=== PATIENT | female | born 1945 | race Caucasian/White ===

== ENCOUNTER 2024-10-13 12:19 | Emergency (ER) | payer MEDICARE, SELFPAY ==
[2024-10-13 12:54] VITALS: BP 101/60; PULSE 83; RESP 18; TEMP 36.5; O2SAT 96
--- NOTE | 2024-10-13 13:28 | ED.URI ---
HPI - URI/Sore Throat General Chief Complaint: Upper Respiratory Infection Stated Complaint: cough congestion headache Time Seen by Provider: 10/13/24 13:28 Source: patient, RN notes reviewed and old records reviewed Mode of arrival: ambulatory Limitations: no limitations History of Present Illness HPI Narrative: 79-year-old presents to the [facility] with complaints, headache cough, congestion. Has a history of COPD and cardiac stents. States that she forgot her albuterol inhaler at home in [place]. Patient reports that she has felt feverish, headache. Symptoms started this morning Related Data Allergies Allergy/AdvReac Type Severity Reaction Status Date / Time Sulfa (Sulfonamide Allergy rash Verified 10/09/12 11:07 Antibiotics) Review of Systems Review of Systems: All systems reviewed & are unremarkable except as noted in HPI and below Constitutional: Constitutional: Reports as per HPI, Reports fever(s) and Reports headache(s) ENT: Reports system reviewed and no additional complaints, except as documented Cardiovascular: Cardiovascular: Reports no additional cardiovascular complaints, Denies chest pain and Denies dyspnea Respiratory: Respiratory: Reports as per HPI, Denies chest congestion, Reports cough, Reports dyspnea and Reports wheezing Musculoskeletal: Musculoskeletal: Reports no additional musculoskeletal complaints Integumentary/Breasts: Skin/Breast: Reports system reviewed and no additional complaints, except as docu PMFSH Past Medical History Medical History (Updated 10/13/24 @ 19:57 by Katharina Shore APRN) History of thyroid disorder COPD (chronic obstructive pulmonary disease) Surgical History Surgical History (Updated 10/13/24 @ 19:57 by Katharina Shore APRN) H/O heart artery stent Comments At the time of my signature, I reviewed and agree with the nursing past medical, surgical, social, and family history. There is no relevant family history pertinent to the patient complaint. Exam Const: General: cooperative, healthy appearing, comfortable, no acute distress, well developed, alert and well nourished Nutritional Appearance: well nourished Orientation/consciousness: patient oriented x3 Limitations: no limitations HENMT: Head: normal to inspection Ears: hearing grossly normal bilaterally, external ears normal, TM's normal bilaterally, EAC's normal, mastoids normal and no periauricular adenopathy Face/Nose/Sinus: normal facial exam and face symmetric Face and sinus: normal facial exam and face symmetric Throat: uvula midline, postnasal drainage and no uvular edema Eyes: General: appearance normal, both eyes and all related structures Neck: Neck: normal visual inspection, full ROM, no lymphadenopathy and no meningeal signs Chest: Chest palpation & inspection: normal inspection of the chest Resp: Effort & Inspection: normal respiratory effort and able to speak in complete sentences Auscultation: no crackles, no rales, no rhonchi and wheezes throughout Cardio: Rate: regular rate Skin: General skin exam: normal color and no rashes or lesions noted Neuro: General: patient oriented x3, gait normal, moves all extremities and no meningeal signs Cognition (Neuro): normal cognition Speech: normal speech Gait exam (Neuro): Normal gait present Extrem: General: normal to inspection, full ROM, capillary refill normal and normal gait Psych: Appearance: grossly normal and well kempt Mental Status: mental status grossly normal Speech and movement: Normal speech and movement present and Clear speech present Affect: normal affect Attitude: cooperative Course Course Level of Care: Express Care Visit Vital Signs Vital signs: Vital Signs Temperature 97.7 F 10/13/24 12:54 Pulse Rate 83 10/13/24 12:54 Respiratory Rate 18 10/13/24 12:54 Blood Pressure 101/60 10/13/24 12:54 Pulse Oximetry 96 10/13/24 12:54 Oxygen Delivery Room Air 10/13/24 12:54 Temperature 97.7 F 10/13/24 12:54 Pulse Rate 83 10/13/24 12:54 Respiratory Rate 18 10/13/24 12:54 Blood Pressure 101/60 10/13/24 12:54 Pulse Oximetry 96 10/13/24 12:54 Oxygen Delivery Room Air 10/13/24 12:54 Reviewed MDM - URI/Sore Throat MDM Narrative Medical decision making narrative: Patient sitting comfortably exam vitals stable. Patient presents with several hours of cough, congestion. Has a history of COPD. Did not bring her medication from home. Patient is appropriate for outpatient treatment with close follow-up Discharge instructions reviewed with patient, as well as provided in writing per nursing staff. The instructions also include specific and strict return/GO TO THE ER as well as f/u information. All questions have been answered, and the patient deny any further questions with discharge and discharge plan. Some parts of this dictation were generated by voice recognition software and may contain typographical and/or grammatical inaccuracies. Differential Diagnosis Differential diagnosis: Likely upper respiratory infection, otitis media, sinusitis, viral infection and bronchitis Critical Care Time Critical Care Time Critical Care Time: No Discharge Plan Discharge Clinical Impression: COPD (chronic obstructive pulmonary disease) with acute bronchitis Patient Disposition: Home, Self-Care Condition: Stable Instructions: Antibiotic Form, COPD (Chronic Obstructive Pulmonary Disease) (DC), Chronic Bronchitis (ED) Additional Instructions: Use your inhaler every 4-5 hours while awake Take steroid as prescribed Follow-up with primary care provider as soon as possible For new or worsening symptoms go directly to the emergency room Patient Language: [place] Prescriptions: New albuterol sulfate 90 mcg/actuation HFA aerosol inhaler 2 puff inhalation QID PRN (Reason: shortness of breath or wheezing) Qty: 6.7 0RF (DME) Aerochamber MV Spacer See Rx Instructions .Route Qty: 1 0RF Rx Instructions: As directed prednisone 20 mg tablet See Rx Instructions .Route .COMPLEX Qty: 18 0RF Rx Instructions: Take 60 mg daily for 3 days, 40 mg daily for 3 days, 20 mg daily for 3 days Follow-up/Referrals: UNKNOWN,DOCTOR [Primary Care Provider] - Time of Disposition: 13:40
== END 2024-10-13 13:44 | disposition home or self-care (01) ==
PROVIDERS: Emergency Provider Nurse Practitioner
DX: J44.9 Chronic obstructive pulmonary disease, unspecified (principal); Z85.850 Personal history of malignant neoplasm of thyroid
CPT/HCPCS: 99203; G0463

== ENCOUNTER 2025-01-28 18:31 | Emergency (ER) | payer MEDICARE, SELFPAY ==
--- NOTE | ~2025-01-28 | XR_ITS ---
EXAMINATION: XR chest 2V Exam Date/Time: 01/28/2025 19:32 CDT HISTORY: CHEST PAIN . Comparison: None. RESULT: Lines, tubes, and devices: A stimulator pack or pump lies over the anterior abdomen. Bilateral shoul jonathan arthroplasties. Anterior and posterior cervical fusion hardware. Lungs and pleura: No focal consolidation or pneumothorax. Senescent/interstitial change. Mild left c ostophrenic angle blunting. Cardiomediastinal silhouette: Stable. Other: No acute upper abdominal finding. Scoliosis. Osteopenia. Moderate height loss of the lower th oracic vertebral body, probably T10. IMPRESSION: Small left pleural effusion versus chronic pleural blunting. Acute versus chronic moderate T10 compression fracture (no comparisons available). Reviewed, dictated and finalized at location K. IMPRESSION: Small left pleural effusion versus chronic pleural blunting. Acute versus chronic moderate T10 compression fracture (no comparisons availabl e).
--- OUTSIDE RECORDS SUMMARY | 2025-01-28 18:34 | XMS_ITS ---
Author Name Interface, [id number] lity Address [place] [address] Organization [facility] Address [place] [address] Care Team Providers Care Memory Care Program Resident Name Role Phone DorindaMichell pintoe Unavailable Unavailable Allergies and Adverse Reactions Medication/Group Name Reaction Severity Date Sulfa (Sulfonamide Antibiotics) 11/07/2024 Plan Date Type Value 05/16/2025 APPOINTMENT LAB OV 6M 05/16/2025 APPOINTMENT LAB OV 6M 11/07/2024 APPOINTMENT LAB OV 11/07/2024 APPOINTMENT LAB OV 10/27/2024 APPOINTMENT LAB OV 10/27/2024 APPOINTMENT LAB OV 04/26/2024 APPOINTMENT LAB OV 04/26/2024 APPOINTMENT LAB OV 10/27/2023 APPOINTMENT LAB OV-3M 10/27/2023 APPOINTMENT LAB OV-3M 10/06/2023 APPOINTMENT LAB OV-3M 10/06/2023 APPOINTMENT LAB OV 07/07/2023 APPOINTMENT LAB OV-6M 07/07/2023 APPOINTMENT LAB OV 04/08/2023 APPOINTMENT LAB OV 04/08/2023 APPOINTMENT LAB OV 02/22/2023 APPOINTMENT VENOFER #5 02/18/2023 APPOINTMENT VENOFER #4 02/16/2023 APPOINTMENT VENOFER #4 02/15/2023 APPOINTMENT VENOFER #4 02/04/2023 APPOINTMENT VENOFER #3 01/28/2023 APPOINTMENT VENOFER #2 01/21/2023 APPOINTMENT PBR VENOFER #1 01/21/2023 APPOINTMENT PBR VENOFER #1 12/30/2022 APPOINTMENT LABS, OV 12/30/2022 APPOINTMENT LABS, OV 06/24/2022 APPOINTMENT LAB OV 06/24/2022 APPOINTMENT LAB OV 12/24/2021 APPOINTMENT LAB OV 12/24/2021 APPOINTMENT LAB OV 06/24/2021 APPOINTMENT LAB OV 06/24/2021 APPOINTMENT LAB OV 06/24/2021 LABORDER Iron, TIBC, Ferr itin panel 06/24/2021 LABORDER [place]/lambda wit h K/L ratio, free, serum (mg/dL) 06/24/2021 LABORDER CBC 06/24/2021 LABORDER CMP 06/24/2021 LABORDER SPEP with immuno fixation 06/24/2021 LABORDER Vitamin B12 and Folate panel 12/24/2021 LABORDER SPEP with immuno fixation 12/24/2021 LABORDER Vitamin B12 and Folate panel 12/24/2021 LABORDER Iron, TIBC, Ferr itin panel 12/24/2021 LABORDER CMP 12/24/2021 LABORDER Iron, TIBC, Ferr itin panel 12/24/2021 LABORDER [place]/lambda wit h K/L ratio, free, serum (mg/dL) 12/24/2021 LABORDER CBC 06/24/2022 LABORDER CBC 06/24/2022 LABORDER SPEP with immuno fixation 06/24/2022 LABORDER Vitamin B12 and Folate panel 06/24/2022 LABORDER CMP 06/24/2022 LABORDER Iron, TIBC, Ferr itin panel 06/24/2022 LABORDER [place]/lambda wit h K/L ratio, free, serum (mg/dL) 12/30/2022 LABORDER Iron, TIBC, Ferr itin panel 12/30/2022 LABORDER Vitamin B12 and Folate panel 12/30/2022 LABORDER CMP 12/30/2022 LABORDER [place]/lambda wit h K/L ratio, free, serum (mg/dL) 12/30/2022 LABORDER CBC 12/30/2022 LABORDER SPEP with immuno fixation 04/08/2023 LABORDER Iron, TIBC, Ferr itin panel 04/08/2023 LABORDER CBC w/ auto diff 07/07/2023 LABORDER Iron, TIBC, Ferr itin panel 07/07/2023 LABORDER CMP 07/07/2023 LABORDER CBC w/ auto diff 07/07/2023 LABORDER [place]/lambda wit h K/L ratio, free, serum (mg/dL) 07/07/2023 LABORDER SPEP with immuno fixation 10/06/2023 LABORDER CBC w/auto diff with reflex 10/06/2023 LABORDER Iron, TIBC, Ferr itin panel 10/06/2023 LABORDER CMP 10/27/2023 LABORDER CBC w/auto diff with reflex 10/27/2023 LABORDER Iron, TIBC, Ferr itin panel 10/27/2023 LABORDER CMP 04/26/2024 LABORDER Iron, TIBC, Ferr itin panel 04/26/2024 LABORDER CMP 04/26/2024 LABORDER SPEP with immuno fixation 04/26/2024 LABORDER [place]/lambda wit h K/L ratio, free, serum (mg/dL) 04/26/2024 LABORDER CBC w/auto diff with reflex 11/07/2024 LABORDER SPEP with immuno fixation 11/07/2024 LABORDER CBC w/auto diff with reflex 11/07/2024 LABORDER [place]/lambda wit h K/L ratio, free, serum (mg/dL) 11/07/2024 LABORDER CMP 11/07/2024 LABORDER Iron, TIBC, Ferr itin panel 05/16/2025 LABORDER CBC w/auto diff with reflex 05/16/2025 LABORDER SPEP with immuno fixation 05/16/2025 LABORDER CMP 05/16/2025 LABORDER [place]/lambda wit h K/L ratio, free, serum (mg/dL) 05/16/2025 LABORDER Iron, TIBC, Ferr itin panel Reason for Visit LAB OV Encounters Date Name 06/24/2021 Anemia (disorder) 06/24/2021 Cannot tolerate oral iron 06/24/2021 Iron deficiency anem ia (disorder) 06/24/2021 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 . [address] [place] [address]. [id number]. [place] [address] CLIA#45D [id number] 06/24 TIBC and perce nt sat w/ iron panel Iron ug/dL 50.0 170.0 34.00 Low FINAL Mary Palanisa my Serum [facility] . [address] [place] [address]. [id number]. [place] [address] CLIA#45D [id number] 06/24 TIBC and perce nt sat w/ iron panel TIBC ug/dL 250.0 450.0 482.00 High FINAL Mary Palanisa my Serum [facility] . [address] [place] [address]. [id number]. [place] [address] CLIA#45D [id number] 06/24 TIBC and perce nt sat w/ iron panel Iron, % satur ation % 20.0 55.0 7.1 Low FINAL Mary Palanisa my Serum [facility] . [address] [place] [address]. [id number]. [place] [address] CLIA#45D [id number] 06/24 SPEP with immun ofixa tion Album in, SPE g/dL 3.1 5.5 3.7 FINAL Mary Palanisa my [facility] [place] [address] [facility] [address] [facility] SPEP with immun ofixa tion Alpha -1 globu ashley g/dL 0.2 0.5 0.3 FINAL Mary Palanisa my [facility] [place] [address] 12[place] [address] 06/24 SPEP with immun ofixa tion Alpha -2 globu ashley g/dL 0.4 1.0 0.7 FINAL Mary Palanisa my [facility] [place] [address] 12.[facility] [address] 06/24 SPEP with immun ofixa tion Beta globu ashley g/dL 0.5 1.1 0.9 FINAL Mary Palanisa my [facility] [place] [address] 12.[facility] [address] 06/24 SPEP with immun ofixa tion Gamma globu ashley g/dL 0.7 1.5 1.1 FINAL Mary Johnanisa my [facility] [address] [place] [address] [address] 12.[place] [address] 06/24 SPEP with immun ofixa tion Parap rotei n band, g/dL g/dL None FINAL Mary Johnanisa my [facility] [address] [place] [address] [place] 12[place] [address] 06/24 SPEP with immun ofixa tion Total prote in elect ropho resis g/dL 5.7 8.2 6.7 FINAL Mary Johnanisa my [facility] [address] [place] [address] [address] 12.[place] [address] 06/24 SPEP with immun ofixa tion SPE inter preta tion Results Below Normal serum total protein with normal electroph oretic pattern. FINAL Mary Johnanisa my [facility] [address] [place] [address] [address] 12.[place] [address] 06/24 SPEP with immun ofixa tion Immun ofixa tion, serum , inter preta tion Results Below No monoclona l peaks detected. FINAL Mary Chisa my [facility] [address] [place] [address] [address] 12.[place] [address] 06/24 Vitam in B12 panel Vitam in B12 pg/mL 211.0 911.0 571 FINAL Mary Johnanisa my [facility] [address] [place] [address] [place] 12[place] [address] 06/24 CMP Sodiu m mmol/L 136.0 145.0 143 FINAL Mary Johnanisa my Plasma [facility] . [address] [employer]. [id number]. [facility] [address] CLIA#45D [id number] 06/24 CMP Potas sium mmol/L 3.5 5.1 3.8 FINAL Mary Palanisa my Plasma [facility] . [address] [employer]. [id number]. [facility] [address] CLIA#45D [id number] 06/24 CMP Chlor loly mmol/L 97.0 107.0 106 FINAL Mary Palanisa my Plasma [facility] . [address] [place], [place] [address]. [id number]. [facility] [address] CLIA#45D [id number] 06/24 CMP CO2 mmol/L 21.0 32.0 27 FINAL Mary Palanisa my Plasma [facility] . [address] [place], [place] [address]. [id number]. [facility] [address] CLIA#45D [id number] 06/24 CMP Gluco se mg/dL 70.0 110.0 144 High FINAL Mary Palanisa my Plasma [facility] . [address] [place], [place] [address]. [id number]. [place] [address] CLIA#45D [id number] 06/24 CMP BUN mg/dL 7.0 18.0 18 FINAL Mary Palanisa my Plasma [facility] . [address] [place], [place] [address]. [id number]. [place] [address] CLIA#45D [id number] 06/24 CMP Creat inine , mg/dL mg/dL 0.55 1.3 1.41 High FINAL Mary Palanisa my Plasma [facility] . [address] [place], [place] [address] [facility]. [id number]. [place] [address] CLIA#45D [id number] 06/24 CMP GFR estim ate ml/min /1.73m 2 37 Low eFR based on CKD-EPI to estimate renal function. If multiply results by 1.159.60- 89 mL/min/1. 73m^2 without kidney damage may be normal.60 -89 mL/min/1. 73m^2 for 3 months or more, along with kidney damage, may indicate early kidney disease.I f , multiply result by 1.159. FINAL Mary Palanisa my Plasma [facility] . [address] [place], [place] [address]. [id number]. [place] [address]71 CLIA#45D [id number] 06/24 CMP BUN/C reati nine ratio Ratio 6.0 25.0 12.8 FINAL Mary Palanisa my Plasma [facility] . [address] [place], [place] [address]. [id number]. [place] [address] CLIA#45D [id number] 06/24 CMP Calci um mg/dL 8.5 10.1 8.7 FINAL Mary Palanisa my Plasma [facility] . [address] [place] [address]. [id number]. [place] [address] CLIA#45D [id number] 06/24 CMP Total prote in g/dL 6.4 8.2 6.8 FINAL Mary Palanisa my Plasma [facility] . [address] [place] [address]. [id number]. [place] [address] CLIA#45D [id number] 06/24 CMP Album in g/dL 3.4 5.0 3.2 Low FINAL Mary Palanisa my Plasma [facility] . [address] [place] [address]. [place] [address]. [place] [address] CLIA#45D [id number] 06/24 CMP A/G ratio Ratio 0.8 2.0 0.9 FINAL Mary Palanisa my Plasma [facility] . [address] [place] [address]. [id number]. [place] [address] CLIA#45D [id number] 06/24 CMP Bilir ubin, total mg/dL 0.1 1.0 0.5 FINAL Mary Palanisa my Plasma [facility] . [address] [place] [address]. [id number]. [place] [address] CLIA#45D [id number] 06/24 CMP Alkal ine phosp hatas e U/L 46.0 116.0 96 FINAL Mary Palanisa my Plasma [facility] . [address] [place] [address]. [id number]. [place] [address] CLIA#45D [id number] 06/24 CMP AST/S GOT U/L 15.0 37.0 16 FINAL Mary Palanisa my Plasma [facility] . [address] [place] [address]. [id number]. [place] [address] CLIA#45D [id number] 06/24 CMP ALT/S GPT U/L 14.0 59.0 18 FINAL Mary Palanisa my Plasma [facility] . [address] [place], [place] [address]y [facility]. [id number]. [place] [address] CLIA#45D [id number] 06/24 [place] /robbins da with K/L ratio , free, serum (mg/d L) [place] light chain , free, serum , mg/L mg/L 3.3 19.4 64.7 High FINAL Mary Palanisa my Serum [facility] [address] [place] [address] [address] 12[place] [address] 06/24 [place] /robbins da with K/L ratio , free, serum (mg/d L) [place] a light chain , free, serum , mg/L mg/L 5.7 26.3 29.2 High FINAL Mary Palanisa my [facility] [address] [place] [address] [address] 12[place] [address] 06/24 [place] /robbins da with K/L ratio , free, serum (mg/d L) [place] /Robbins da light chain s, free w/ ratio , serum Ratio 0.26 1.65 2.22 High (Note)Harjinder e kappa/tracy bda ratio in serum of normal individua ls is 0.26-1.65 .Excess productio n of free kappa or lambda chains can alter thisratio . Monoclona l free light chains are found in serum of patientsw ith multiple myeloma, Waldenstr om's macroglob ulinemia, mu-heavyc lon disease, primary amyloidos is, light chain depositio n disease,m onoclonal gammopath y of undetermi christina significa nce, andlympho prolifera tive disorders . Measureme nt of free light chainconc entration in serum is useful for diagnosis , prognosis , monitorin gdisease activity and following response to therapy of these disorders . FINAL Mary Palanisa my [facility] [address] [place] [address] [place] 12[place] [address] 06/24 CBC WBC 10^3/u l 4.8 10.8 4.4 Low FINAL Mary Palanisa my Whole Blood [facility] [place] . [facility] [facility] [employer] [facility]. [id number]. [facility] [address] CLIA#45D [id number] 06/24 CBC RBC 10^6/u l 4.2 5.4 3.85 Low FINAL Mary Palanisa my Whole Blood [facility] . [address] [place] [address] [employer] [facility]. [id number]. [place] [address] CLIA#45D [id number] 06/24 CBC HGB g/dl 12.0 16.0 9.8 Low FINAL Mary Palanisa my Whole Blood [facility] . [address] [place] [address] [employer] [facility]. [id number]. [place] [address] CLIA#45D [id number] 06/24 CBC HCT % 37.0 47.0 32.6 Low FINAL Mary Palanisa my Whole Blood [facility] . [address] [place], [place] [address]Vimty [facility]. [id number]. [place] [address] CLIA#45D [id number] 06/24 CBC MCV fl 81.0 99.0 84.7 FINAL Mary Palanisa my Whole Blood [facility] . [address] [place], [place] [address]Vimty [facility]. [id number]. [place] [address] CLIA#45D [id number] 06/24 CBC MCH pg 27.0 31.0 25.5 Low FINAL Mary Palanisa my Whole Blood [facility] . [address] [place], [place] [address]Vimty [facility]. [id number]. [place] [address] CLIA#45D [id number] 06/24 CBC MCHC g/dl 33.0 37.0 30.1 Low FINAL Mary Palanisa my Whole Blood [facility] . [address] [place] [address]. [id number]. [place] [address] CLIA#45D [id number] 06/24 CBC RDW % 10.5 14.5 14.6 High FINAL Mary Palanisa my Whole Blood [facility] . [address] [place] [address] [employer] [facility]. [id number]. [place] [address] CLIA#45D [id number] 06/24 CBC PLT 10^3/u l 130.0 400.0 299 FINAL Mary Palanisa my Whole Blood [facility] . [address] [place] [address] [employer] [facility]. [id number]. [place] [address] CLIA#45D [id number] 06/24 CBC MPV fl 9.4 12.3 11.1 FINAL Mary Palanisa my Whole Blood [facility] . [address] [place] [address]. [place] [address]. [place] [address] CLIA#45D [id number] 06/24 CBC Auto CBC comme nts See Manual Diff FINAL Mary Palanisa my Whole Blood [facility] . [address] [place] [address]. [id number]. [place] [address] CLIA#45D [id number] 06/24 Manua l diffe renti al Seg % % 40.0 77.0 41 FINAL Mary Palanisa my Whole Blood [facility] . [address] [place] [address]. [place] [address]. [place] [address] CLIA#45D [id number] 06/24 Manua l diffe renti al Lymph ocyte % % 15.0 41.0 33 FINAL Mary Palanisa my Whole Blood [facility] . [address] [place] [address]. [id number]. [place] [address] CLIA#45D [id number] 06/24 Manua l diffe renti al Monoc yte % % 3.0 11.0 8 FINAL Mary Palanisa my Whole Blood [facility] . [address] [place] [address]. [place] [address]. [place] [address] CLIA#45D [id number] 06/24 Manua l diffe renti al Eosin ophil % % 0.0 3.0 15 High FINAL Mary Palanisa my Whole Blood [facility] . [address] [place] [address]. [place] [address]. [place] [address] CLIA#45D [id number] 06/24 Manua l diffe renti al Basop hil % % 0.0 1.0 3 High FINAL Mary Palanisa my Whole Blood [facility] . [address] [place] [address]. [place] [address]. [place] [address] CLIA#45D [id number] 06/24 Manua l diffe renti al ANC (M) 10^3/U L 1.5 6.5 1.81 FINAL Mary Palanisa my Whole Blood [facility] . [address] [place] [address]. [id number]. [place] [address] CLIA#45D [id number] 06/24 Manua l diffe renti al LY# (M) 10^3/u L 1.2 3.4 1.46 FINAL Mary Palanisa my Whole Blood [facility] . [address] [place] [address]. [id number]. [place] [address] CLIA#45D [id number] 06/24 Manua l diffe renti al MO# (M) 10^3/U L 0.0 1.0 0.35 FINAL Mary Palanisa my Whole Blood [facility] . [address] [place] [address]. [id number]. [place] [address] CLIA#45D [id number] 06/24 Manua l diffe renti al EO# (M) 10^3/U L 0.0 0.3 0.66 High FINAL Mary Palanisa my Whole Blood [facility] . [address] [place] [address]. [id number]. [place] [address] CLIA#45D [id number] 06/24 Manua l diffe renti al Basop hil count (M) 10^3/U L 0.0 0.2 0.13 FINAL Mary Palanisa my Whole Blood [facility] . [address] [place] [address]. [id number]. [place] [address] CLIA#45D [id number] 06/24 Manua l diffe renti al Plate let estim ate 10^3 130.0 400.0 Agrees with Analyze r FINAL Mary Palanisa my Whole Blood [facility] . [address] [place] [address]. [id number]. [place] [address] CLIA#45D [id number] 06/24 Manua l diffe renti al RBC morph Normal FINAL Mary Palanisa my Whole Blood [facility] . [address] [place] [address]. [id number]. [place] [address] CLIA#45D [id number] 06/24 Folat e panel Folat e, serum ng/mL 7.6 FINAL Mary Palanisa Serum [facility]2 [address] [facility] [address] 12[place] [address] 12/24 TIBC and perce nt sat w/ iron panel Iron ug/dL 50.0 170.0 79.00 FINAL [facility] . [address] [place] [address]. [id number]. [place] [address] CLIA#45D [id number] 12/24 TIBC and perce nt sat w/ iron panel TIBC ug/dL 250.0 450.0 438.00 FINAL [facility] . [address] [place] [address]. [id number]. [place] [address] CLIA#45D [id number] 12/24 TIBC and perce nt sat w/ iron panel Iron, % satur ation % 20.0 55.0 18.0 Low FINAL [facility] . [address] [place] [address]. [id number]. [place] [address] CLIA#45D [id number] 12/24 Juliet tin panel Juliet tin ng/mL 8.0 252.0 29 FINAL [facility] Serum [facility] . [address] [place] [address]. [id number]. [place] [address] CLIA#45D [id number] 12/24 CBC WBC 10^3/u l 4.8 10.8 4.6 Low FINAL [facility] Whole Blood [facility] . [address] [place] [address]. [id number]. [place] [address] CLIA#45D [id number] 12/24 CBC RBC 10^6/u l 4.2 5.4 3.83 Low FINAL [facility] Whole Blood [facility] . [address] [place] [address]. [id number]. [place] [address] CLIA#45D [id number] 12/24 CBC HGB g/dl 12.0 16.0 11.3 Low FINAL [facility] Whole Blood [facility] . [address] [place] [address]. [id number]. [place] [address] CLIA#45D [id number] 12/24 CBC HCT % 37.0 47.0 35.3 Low FINAL Roxi Kelleywith Whole Blood [facility] . [address] [place], [place] [address]Vimty [facility]. [id number]. [facility] [address] CLIA#45D [id number] 12/24 CBC MCV fl 81.0 99.0 92.2 FINAL Roxi Kelleywith Whole Blood [facility] . [address] [place] [address]. [id number]. [place] [address]71 CLIA#45D [id number] 12/24 CBC MCH pg 27.0 31.0 29.5 FINAL Roxi Kelleywith Whole Blood [facility] . [address] [place] [address]. [id number]. [place] [address] CLIA#45D [id number] 12/24 CBC MCHC g/dl 33.0 37.0 32.0 Low FINAL Roxi Kelleywith Whole Blood [facility] . [address] [place] [address]. [place] [address]. [place] [address] CLIA#45D [id number] 12/24 CBC RDW % 10.5 14.5 15.3 High FINAL Roxi Kelleywith Whole Blood [facility] . [address] [place] [address]. [place] [address]. [facility] [address] CLIA#45D [id number] 12/24 CBC PLT 10^3/u l 130.0 400.0 219 FINAL Roxi Kelleywith Whole Blood [facility] . [address] [place] [address]. [place] [address]. [facility] [address] CLIA#45D [id number] 12/24 CBC MPV fl 9.4 12.3 10.5 FINAL Roxi Kelleywith Whole Blood [facility] . [address] [place] [address]. [id number]. [place] [address]71 CLIA#45D [id number] 12/24 CBC Jordy % % 40.0 77.0 45.7 FINAL Roxi Dorinda Whole Blood [facility] . [address] [place] [address]. [place] [address]. [place] [address] CLIA#45D [id number] 12/24 CBC Jordy # (ANC) 10^3/u l 1.5 6.5 2.1 FINAL Roxi Dorinda Whole Blood [facility] . [address] [place] [address]. [id number]. [place] [address] CLIA#45D [id number] 12/24 CBC LY % % 15.0 41.0 34.5 FINAL Roxi Dorinda Whole Blood [facility] . [address] [place] [address]. [id number]. [place] [address] CLIA#45D [id number] 12/24 CBC LY # 10^3/u l 1.2 3.4 1.6 FINAL Roxi Dorinda Whole Blood [facility] . [address] [place] [address]. [place] [address]. [place] [address] CLIA#45D [id number] 12/24 CBC MO % % 3.0 11.0 12.0 High FINAL Roxi Dorinda Whole Blood [facility] . [address] [place] [address]. [place] [address]. [place] [address] CLIA#45D [id number] 12/24 CBC MO # 10^3/u l 0.0 1.0 0.6 FINAL Roxi Dorinda Whole Blood [facility] . [address] [place] [address]. [place] [address]. [place] [address] CLIA#45D [id number] 12/24 CBC EO % % 0.0 3.0 6.3 High FINAL Roxi Dorinda Whole Blood [facility] . [address] [place] [address]. [place] [address]. [place] [address] CLIA#45D [id number] 12/24 CBC EO # 10^3/u L 0.0 0.3 0.3 FINAL Roxi Dorinda Whole Blood [facility] . [address] [place] [address]. [place] [address]. [place] [address] CLIA#45D [id number] 12/24 CBC BA % % 0.0 1.0 1.3 High FINAL Roxi Dorinda Whole Blood [facility] . [address] [place] [address]. [place] [address]. [place] [address] CLIA#45D [id number] 12/24 CBC BA # 10^3/u L 0.0 0.2 0.1 FINAL Roxi Dorinda Whole Blood [facility] . [address] [place] [address]. [id number]. [facility] [address] CLIA#45D [id number] 12/24 CBC IG % % 0.0 0.5 0.20 FINAL Roxi Dorinda Whole Blood [facility] . [address] [place] [address]. [id number]. [facility] [address] CLIA#45D [id number] 12/24 CBC IG # 10^3/u L 0.0 0.03 0.01 FINAL Roxi Dorinda Whole Blood [facility] . [address] [place] [address]. [id number]. [facility] [address] CLIA#45D [id number] 12/24 CBC NRBC, % % 0.00 FINAL Roxi Dorinda Whole Blood [facility] . [address] [place] [address]. [id number]. [facility] [address] CLIA#45D [id number] 12/24 CBC NRBC, absol circle, x 10^3/ uL 10^3/u L 0.000 FINAL Roxi Dorinda Whole Blood [facility] . [address] [place] [address]. [place] [address]. [facility] [address] CLIA#45D [id number] 12/24 Vitam in B12 panel Vitam in B12 pg/mL 200.0 1100.0 366 Please note: Although the reference range for Vitamin B12 is 200-1100 pg/mL,it has been reported that between 5-10% of patients with the values [id number] 0-400 pg/mL may experienc e neuropsyc hiatric and hematolog ic abnormali ties dueto occult B12 deficienc y, less than 1% of patients with values above 400 pg/mLwill have symptoms. FINAL Roxi Dorinda Serum [facility].2 [address] [facility] [address] 12[place] [address] 12/24 CMP Sodiu m mmol/L 136.0 145.0 141 FINAL Roxi Dorinda Plasma [facility] . [address] [place] [address]. [id number]. [facility] [address] CLIA#45D [id number] 12/24 CMP Potas sium mmol/L 3.5 5.1 3.7 FINAL Roxi Dorinda [facility] . [address] [place] [address]. [id number]. [facility] [address] CLIA#45D [id number] 12/24 CMP Chlor loly mmol/L 97.0 107.0 103 FINAL Roxi [facility] . [address] [place] [address]. [id number]. [facility] [address] CLIA#45D [id number] 12/24 CMP CO2 mmol/L 21.0 32.0 30 FINAL [facility] . [address] [place] [address]. [id number]. [place] [address] CLIA#45D [id number] 12/24 CMP Gluco se mg/dL 70.0 110.0 99 FINAL [facility] . [address] [place] [address]. [id number]. [place] [address] CLIA#45D [id number] 12/24 CMP BUN mg/dL 7.0 18.0 25 High FINAL [facility] . [address] [place] [address]. [id number]. [place] [address] CLIA#45D [id number] 12/24 CMP Creat inine , mg/dL mg/dL 0.55 1.3 1.53 High FINAL [facility] . [address] [place] [address]. [id number]. [place] [id number] CLIA#45D [id number] 12/24 CMP GFR estim ate ml/min /1.73m 2 33 Low eFR based on CKD-EPI to estimate renal function. If multiply results by 1.159.60- 89 mL/min/1. 73m^2 without kidney damage may be normal.60 -89 mL/min/1. 73m^2 for 3 months or more, along with kidney damage, may indicate early kidney disease.I f , multiply result by 1.159. FINAL [facility] . [address] [place] [address]. [id number]. [place] [address] CLIA#45D [id number] 12/24 CMP BUN/C reati nine ratio Ratio 6.0 25.0 16.3 FINAL [facility] . [address] [place] [address]. [id number]. [place] [address] CLIA#45D [id number] 12/24 CMP Calci um mg/dL 8.5 10.1 9.0 FINAL [facility] . [address] [place] [address]. [id number]. [place] [address] CLIA#45D [id number] 12/24 CMP Total prote in g/dL 6.4 8.2 7.2 FINAL [facility] . [address] [place] [address]. [place] [address]. [place] [address] CLIA#45D [id number] 12/24 CMP Album in g/dL 3.4 5.0 3.4 FINAL [facility] . [address] [place] [address]. [place] [address]. [place] [address] CLIA#45D [id number] 12/24 CMP A/G ratio Ratio 0.8 2.0 0.9 FINAL [facility] . [address] [place] [address]. [place] [address]. [place] [address] CLIA#45D [id number] 12/24 CMP Bilir ubin, total mg/dL 0.1 1.0 0.7 FINAL [facility] . [address] [place] [address]. [place] [address]. [place] [address] CLIA#45D [id number] 12/24 CMP Alkal ine phosp hatas e U/L 46.0 116.0 92 FINAL [facility] . [address] [place] [address]. [id number]. [place] [address] CLIA#45D [id number] 12/24 CMP AST/S GOT U/L 15.0 37.0 20 FINAL [facility] . [address] [place] [address]. [place] [address] CLIA#45D [id number] 12/24 CMP ALT/S GPT U/L 14.0 59.0 20 FINAL [facility] . [address] [facility]. [id number]. [facility] [address] CLIA#45D [id number] 12/24 Folat e panel Folat e, serum ng/mL 7.2 (Note)Ref erence ranges for adults: Low <3.4 ng/mL Borderlin e 3.4 - 5.4 ng/mL Normal >5.4 ng/mL FINAL [facility] [place] [address] [place] 12[place] [address] 12/24 SPEP with immun ofixa tion Album in, SPE g/dL 3.1 5.5 3.7 FINAL [facility] [place] [address] [place] 12[place] [address] 12/24 SPEP with immun ofixa tion Alpha -1 globu ashley g/dL 0.2 0.5 0.3 FINAL [facility] [place] [address] [place] 12[place] [address] 12/24 SPEP with immun ofixa tion Alpha -2 globu ashley g/dL 0.4 1.0 0.7 FINAL [facility] [place] [address] [place] 12[place] [address] 12/24 SPEP with immun ofixa tion Beta globu ashley g/dL 0.5 1.1 0.9 FINAL [facility] [place] [address] [place] 12[place] [address] 12/24 SPEP with immun ofixa tion Gamma globu ashley g/dL 0.7 1.5 1.0 FINAL [facility] [place] [address] [place] 12[place] [address] 12/24 SPEP with immun ofixa tion Parap rotei n band, g/dL g/dL None FINAL [facility] [place] [address] [place] 12[place] [address] 12/24 SPEP with immun ofixa tion Total prote in elect ropho resis g/dL 5.7 8.2 6.5 FINAL [facility] [place] [address] [place] 12[place] [address] 12/24 SPEP with immun ofixa tion SPE inter preta tion Results Below Normal serum total protein with normal electroph oretic pattern. FINAL [facility] [address] [place] [address] [place] 12[place] [address] 12/24 SPEP with immun ofixa tion Immun ofixa tion, serum , inter preta tion Results Below No monoclona l peaks detected. FINAL [facility] [address] [place] [address] [place] 12[place] [address] 12/24 [place] /robbins da with K/L ratio , free, serum (mg/d L) [place] light chain , free mg/L 3.3 19.4 52.7 High FINAL [facility] [address] [place] [address] [place] 12[place] [address] 12/24 [place] /robbins da with K/L ratio , free, serum (mg/d L) Lamb[place] a light chain , free mg/L 5.7 26.3 29.0 High FINAL [facility] [address] [place] [address] [place] 12[place] [address] 12/24 [place] /robbins da with K/L ratio , free, serum (mg/d L) Free K/L ratio Ratio 0.26 1.65 1.82 High (Note)Harjinder e kappa/tracy bda ratio in serum of normal individua ls is 0.26-1.65 .Excess productio n of free kappa or lambda chains can alter thisratio . Monoclona l free light chains are found in serum of patientsw ith multiple myeloma, Waldenstr om's macroglob ulinemia, mu-heavyc lon disease, primary amyloidos is, light chain depositio n disease,m onoclonal gammopath y of undetermi christina significa nce, andlympho prolifera tive disorders . Measureme nt of free light chainconc entration in serum is useful for diagnosis , prognosis , monitorin gdisease activity and following response to therapy of these disorders . FINAL [facility] [address] [place] [address] [place] 12[place] [address] 12/30 Echoc ardio gram See patient services coordinator d 02/17 Mammo graph y See patient services coordinator d 02/17 X-ray See patient services coordinator d 06/24 TIBC and perce nt sat w/ iron panel Iron mcg/dL 45.0 160.0 55 FINAL Mary [facility] [address] [place] [address] [place] 12[place] [address] 06/24 TIBC and perce nt sat w/ iron panel TIBC mcg/dL 250.0 450.0 373 FINAL [facility] [address] [place] [address] [place] 12[place] [address] 06/24 TIBC and perce nt sat w/ iron panel Iron, % satur ation % 16.0 45.0 15 Low FINAL [facility] [address] [place] [address] [place] 12[place] [address] 06/24 CBC w/ auto diff WBC 10^3/u l 4.8 10.8 4.2 Low FINAL Mary Palanisa [facility] . [address] [place] [address] [facility] [facility]. [place] [address]. [place] [address] CLIA#45D [id number] 06/24 CBC w/ auto diff RBC 10^6/u l 4.2 5.4 3.76 Low FINAL Mary Palanisa my Whole [facility] . [address] [place] [address] [facility] [facility]. [place] [address]. [facility] [address] CLIA#45D [id number] 06/24 CBC w/ auto diff HGB g/dl 12.0 16.0 11.0 Low FINAL Mary Palanisa my Whole [facility] . [address] [place] [address] [facility] [facility]. [id number]. [facility] [address] CLIA#45D [id number] 06/24 CBC w/ auto diff HCT % 37.0 47.0 34.9 Low FINAL Mary Palanisa my Whole [facility] . [address] [place] [address] [facility] [facility]. [id number]. [place] [address] CLIA#45D [id number] 06/24 CBC w/ auto diff MCV fl 81.0 99.0 92.8 FINAL Mary Palanisa my Whole [facility] . [address] [place] [address] [facility] [facility]. [id number]. [place] [address] CLIA#45D [id number] 06/24 CBC w/ auto diff MCH pg 27.0 31.0 29.3 FINAL Mary Palanisa my Whole [facility] . [address] [place] [address] [facility] [facility]. [id number]. [place] [address] CLIA#45D [id number] 06/24 CBC w/ auto diff MCHC g/dl 33.0 37.0 31.5 Low FINAL Mary Palanisa my Whole [facility] . [address] [place] [address] [facility] [facility]. [id number]. [place] [address] CLIA#45D [id number] 06/24 CBC w/ auto diff RDW % 10.5 14.5 13.7 FINAL Mary Palanisa my Whole [facility] . [address] [place], [place] [address]. [id number]. [place] [address] CLIA#45D [id number] 06/24 CBC w/ auto diff PLT 10^3/u l 130.0 400.0 224 FINAL Mary Palanisa my Whole [facility] . [address] [place], [place] [address]. [id number]. [place] [address] CLIA#45D [id number] 06/24 CBC w/ auto diff MPV fl 9.4 12.3 10.7 FINAL Mary Palanisa my [facility] . [address] [place] [address] [facility] [facility]. [id number]. [place] [address] CLIA#45D [id number] 06/24 CBC w/ auto diff NRBC, % % 0.00 FINAL Mary Palanisa my [facility] . [address] [place], [place] [address] [facility]. [id number]. [place] [address] CLIA#45D [id number] 06/24 CBC w/ auto diff NRBC, absol circle, x 10^3/ uL 10^3/u L 0.000 FINAL Mary Palanisa my [facility] . [address] [place], [place] [address]. [id number]. [facility] [address] CLIA#45D [id number] 06/24 CBC w/ auto diff Auto CBC comme nts See Manual Diff FINAL Mary rodrigues [facility] . [address]. [id number]. [facility] [address] CLIA#45D [id number] 06/24 [place] /robbins da with K/L ratio , free, serum (mg/d L) [place] light chain , free mg/L 3.3 19.4 67.4 High FINAL Mary [facility]isa [facility] [place] [address] [place] 12[place] [address] 06/24 [place] /robbins da with K/L ratio , free, serum (mg/d L) [place] a light chain , free mg/L 5.7 26.3 33.3 High FINAL Mary Johnanisa l[facility] [place] [address] [place] 12[place] [address] 06/24 [place] /robbins da with K/L ratio , free, serum (mg/d L) Free K/L ratio Ratio 0.26 1.65 2.02 High (Note)Harjinder e kappa/tracy bda ratio in serum of normal individua ls is 0.26-1.65 .Excess productio n of free kappa or lambda chains can alter thisratio . Monoclona l free light chains are found in serum of patientsw ith multiple myeloma, [place]str om's macroglob ulinemia, mu-heavyc lon disease, primary amyloidos is, light chain depositio n disease,m onoclonal gammopath y of undetermi christina significa nce, andlympho prolifera tive disorders . Measureme nt of free light chainconc entration in serum is useful for diagnosis , prognosis , monitorin gdisease activity and following response to therapy of these disorders . FINAL Mary John[facility]isa [facility] [place] [address] [place] 12[place] [address] 06/24 CMP Gluco se mg/dL 65.0 139.0 102 FINAL Mary [facility] [place] [address] 12[place] [address] 06/24 CMP BUN mg/dL 7.0 25.0 24 FINAL [facility] [place] [address] [place] 12[place] [address] 06/24 CMP Creat inine mg/dL 0.6 1.0 1.44 High FINAL [facility] [place] [address] [place] 12[place] [address] 06/24 CMP GFR estim ate mL/min /1.73m 2 38 Low FINAL [facility] [place] [address] [place] 12[place] [address] 06/24 CMP BUN/C reati nine ratio 6.0 22.0 17 FINAL [facility] [place] [address] [place] 12[place] [address] 06/24 CMP Sodiu m mmol/L 135.0 146.0 143 FINAL [facility] [place] [address] [place] 12[place] [address] 06/24 CMP Potas sium mmol/L 3.5 5.3 5.1 FINAL [facility] [place] [address] [place] 12[place] [address] 06/24 CMP Chlor loly mmol/L 98.0 110.0 105 FINAL [facility] [place] [address] [place] 12[place] [address] 06/24 CMP CO2 mmol/L 20.0 32.0 29 FINAL [facility] [place] [address] [place] 12[place] [address] 06/24 CMP Anion gap, mmol/ L mmol/L 7.0 17.0 14 FINAL [facility] [place] [address] [place] 12[place] [address] 06/24 CMP Calci um mg/dL 8.6 10.4 9.4 FINAL [facility] [place] [address] [place] 12[place] [address] 06/24 CMP Total prote in g/dL 6.1 8.1 6.4 FINAL [facility] [address] [place] [address] [address] 12[place] [address] 06/24 CMP Album in g/dL 3.6 5.1 3.7 FINAL [facility] [address] [place] [address] [address] 12[place] [address] 06/24 CMP Globu ashley g/dL 1.9 3.7 2.7 FINAL [facility] [place] [address] [place] 12[place] [address] 06/24 CMP A/G ratio 1.0 2.5 1.4 FINAL [facility] [place] [address] [place] 12[place] [address] 06/24 CMP Bilir ubin, total mg/dL 0.2 1.2 0.5 FINAL [facility] [place] [address] [place] 12[place] [address] 06/24 CMP Alkal ine phosp hatas e U/L 37.0 153.0 92 FINAL [facility] [place] [address] [place] 12[place] [address] 06/24 CMP AST/S GOT U/L 10.0 35.0 14 FINAL [facility] [place] [address] [place] 12[place] [address] 06/24 CMP ALT/S GPT U/L 6.0 29.0 8 FINAL [facility] [place] [address] [place] 12[place] [address] 06/24 Félix aragon al Seg % % 40.0 77.0 42 FINAL Mary Palanisa my Whole [facility] . [address] [place] [address] Drive. [id number]. [place] [id number] CLIA#45D [id number] 06/24 Félix aragon al Lymph ocyte % % 15.0 41.0 38 FINAL Mary Palanisa my [facility] . [address] [place] [address]. [id number]. [place] [address] CLIA#45D [id number] 06/24 Manua l diffe renti al Monoc yte % % 3.0 11.0 11 FINAL Mary Palanisa my [facility] . [address] [place] [address]. [id number]. [place] [address] CLIA#45D [id number] 06/24 Manua l diffe renti al Eosin ophil % % 0.0 3.0 6 High FINAL Mary Palanisa my [facility] . [address] [place] [address]. [id number]. [place] [address] CLIA#45D [id number] 06/24 Manua l diffe renti al Basop hil % % 0.0 1.0 3 High FINAL Mary Palanisa my Whole [facility] . [address] [place] [address]. [id number]. [place] [address] CLIA#45D [id number] 06/24 Manua l diffe renti al ANC (M) 10^3/U L 1.5 6.5 1.74 FINAL Mary Palanisa my Whole [facility] . [address] [place] [address]. [id number]. [place] [address] CLIA#45D [id number] 06/24 Manua l diffe renti al LY# (M) 10^3/u L 1.2 3.4 1.58 FINAL Mary Palanisa my Whole [facility] . [address] [place] [address]. [id number]. [place] [address] CLIA#45D [id number] 06/24 Manua l diffe renti al MO# (M) 10^3/U L 0.0 1.0 0.46 FINAL Mary Palanisa my Whole [facility] . [address] [place] [address]. [id number]. [place] [address] CLIA#45D [id number] 06/24 Manua l diffe renti al EO# (M) 10^3/U L 0.0 0.3 0.25 FINAL Mary Palanisa my Whole [facility] . [address] [place] [address]. [id number]. [place] [address] CLIA#45D [id number] 06/24 Manua jen diffe renti al Basop hil count (M) 10^3/U L 0.0 0.2 0.12 FINAL Mary Palanisa my Whole [facility] . [address] [place] [address]. [id number]. [place] [address] CLIA#45D [id number] 06/24 Manua l diffe renti al Plate let estim ate 10^3 130.0 400.0 Agrees with Analyze r FINAL Mary Palanisa my [facility] . [address] [place] [address]. [id number]. [place] [address] CLIA#45D [id number] 06/24 Eliana jen castilloe renti al RBC morph Normal FINAL Mary [facility]anisa [facility] . [address] [place] [address]. [id number]. [place] [address] CLIA#45D [id number] 06/24 Vitam in B12 panel Vitam in B12 pg/mL 200.0 1100.0 446 FINAL [facility] [place] [address] 12.[facility] [address] [facility]24 Folat e panel Folat e, serum ng/mL 4.7 (Note)Ref erence ranges for adults: Low <3.4 ng/mL Borderlin e 3.4 - 5.4 ng/mL Normal >5.4 ng/mL FINAL [facility] [place] [address] Building 12.Jonathan [facility] [address] 06/24 Juliet tin panel Juliet tin ng/mL 16.0 288.0 39 FINAL Mary [facility] [place] [address] Building 12.Jonathan [facility] [address] 06/24 SPEP with immun ofixa tion Album in, SPE g/dL 3.1 5.5 3.6 FINAL Mary [facility] [place] [address] [place] 12[place] [address] 06/24 SPEP with immun ofixa tion Alpha -1 globu ashley g/dL 0.2 0.5 0.3 FINAL [facility] [place] [address] [place] 12[place] [address] 06/24 SPEP with immun ofixa tion Alpha -2 globu ashley g/dL 0.4 1.0 0.7 FINAL [facility] [place] [address] [place] 12[place] [address] 06/24 SPEP with immun ofixa tion Beta globu ashley g/dL 0.5 1.1 0.8 FINAL [facility] [place] [address] [place] 12[place] [address] 06/24 SPEP with immun ofixa tion Gamma globu ashley g/dL 0.7 1.5 1.0 FINAL [facility] [place] [address] [place] 12[place] [address] 06/24 SPEP with immun ofixa tion Parap rotei n band, g/dL g/dL None FINAL [facility] [place] [address] [place] 12[place] [address] 06/24 SPEP with immun ofixa tion Total prote in elect ropho resis g/dL 5.7 8.2 6.5 FINAL Mary [facility] [place] [address] [place] 12[place] [address] 06/24 SPEP with immun ofixa tion SPE inter preta tion Results Below Abnormal appearing globulin peak, possibly monoclona l. If indicated , recommend immunotyp ing (Test Code: IES) for further evaluatio n. If the SPEP was orderedwi reflex, immunotyp ing will be resulted upon completio n. FINAL [facility] [place] [address] [place] 12[place] [address] 06/24 SPEP with immun ofixa tion Immun ofixa tion, serum , inter preta tion Results Below No monoclona l peaks detected. FINAL [facility] [address] [address] [place] 12[place] [address] 12/30 CBC w/ auto diff WBC 10^3/u l 4.8 10.8 4.9 FINAL Mary Palanisa my Whole [facility] . [address] [place], [place] [address]. [id number]. [place] [address] CLIA#45D [id number] 12/30 CBC w/ auto diff RBC 10^6/u l 4.2 5.4 3.66 Low FINAL Mary Palanisa my Whole [facility] . [address] [place], [place] [address] [facility]. [id number]. [place] [address] CLIA#45D [id number] 12/30 CBC w/ auto diff HGB g/dl 12.0 16.0 10.6 Low FINAL Mary Palanisa my Whole [facility] . [address] [place], [place] [address] [facility]. [id number]. [place] [address] CLIA#45D [id number] 12/30 CBC w/ auto diff HCT % 37.0 47.0 33.8 Low FINAL Mary Palanisa my Whole [facility] . [address] [place], [place] [address] [facility]. [id number]. [place] [address] CLIA#45D [id number] 12/30 CBC w/ auto diff MCV fl 81.0 99.0 92.3 FINAL Mary Palanisa my Whole [facility] . [address] [place], [place] [address] [facility]. [id number]. [place] [address] CLIA#45D [id number] 12/30 CBC w/ auto diff MCH pg 27.0 31.0 29.0 FINAL Mary Palanisa my Whole [facility] . [address] [place], [place] [address]. [id number]. [place] [address] CLIA#45D [id number] 12/30 CBC w/ auto diff MCHC g/dl 33.0 37.0 31.4 Low FINAL Mary Palanisa my Whole [facility] . [address] [place], [place] [address]. [id number]. [place] [address] CLIA#45D [id number] 12/30 CBC w/ auto diff RDW % 10.5 14.5 14.3 FINAL Mary Palanisa my Whole [facility] . [address] [place], [place] [address]. [id number]. [place] [address] CLIA#45D [id number] 12/30 CBC w/ auto diff PLT 10^3/u l 130.0 400.0 294 FINAL Mary Palanisa my Whole [facility] . [address] [place], [place] [address]. [id number]. [place] [address] CLIA#45D [id number] 12/30 CBC w/ auto diff MPV fl 9.4 12.3 10.1 FINAL Mary Palanisa my Whole [facility] . [address] [place], [place] [address]. [id number]. [place] [address] CLIA#45D [id number] 12/30 CBC w/ auto diff Jordy % % 40.0 77.0 43.4 FINAL Mary Palanisa my Whole [facility] . [address] [place], [place] [address]. [id number]. [place] [address] CLIA#45D [id number] 12/30 CBC w/ auto diff Jordy # (ANC) 10^3/u l 1.5 6.5 2.1 FINAL Mary Palanisa my Whole [facility] . [address] [place], [place] [address]. [id number]. [place] [address] CLIA#45D [id number] 12/30 CBC w/ auto diff LY % % 15.0 41.0 31.7 FINAL Mary Palanisa my Whole Blood [facility] . [address] [place] [address] [employer] [facility]. [id number]. [place] [address] CLIA#45D [id number] 12/30 CBC w/ auto diff LY # 10^3/u l 1.2 3.4 1.5 FINAL Mary Palanisa my Whole Blood [facility] . [address] [place] [address] [employer] [facility]. [id number]. [place] [address] CLIA#45D [id number] 12/30 CBC w/ auto diff MO % % 3.0 11.0 13.6 High FINAL Mary Palanisa my Whole Blood [facility] . [address] [place], [place] [address]. [id number]. [place] [address] CLIA#45D [id number] 12/30 CBC w/ auto diff MO # 10^3/u l 0.0 1.0 0.7 FINAL Mary Palanisa my Whole Blood [facility] . [address] [place] [address]. [id number]. [place] [address] CLIA#45D [id number] 12/30 CBC w/ auto diff EO % % 0.0 3.0 9.3 High FINAL Mary Palanisa my Whole Blood [facility] . [address] [place] [address]. [id number]. [place] [address] CLIA#45D [id number] 12/30 CBC w/ auto diff EO # 10^3/u L 0.0 0.3 0.5 High FINAL Mary Palanisa my Whole Blood [facility] . [address] [place] [address]. [id number]. [place] [address] CLIA#45D [id number] 12/30 CBC w/ auto diff BA % % 0.0 1.0 1.4 High FINAL Mary Palanisa my Whole Blood [facility] . [address] [place] [address]. [id number]. [place] [address] CLIA#45D [id number] 12/30 CBC w/ auto diff BA # 10^3/u L 0.0 0.2 0.1 FINAL Mary Palanisa my Whole Blood [facility] . [address] [place], [place] [address]. [id number]. [place] [address] CLIA#45D [id number] 12/30 CBC w/ auto diff IG % % 0.0 0.5 0.60 High FINAL Mary Palanisa my Whole Blood [facility] . [address] [place] [address] [employer] [facility]. [id number]. [place] [address] CLIA#45D [id number] 12/30 CBC w/ auto diff IG # 10^3/u L 0.0 0.03 0.03 FINAL Mary Palanisa my Whole Blood [facility] . [address] [place], [place] [address]. [id number]. [place] [address] CLIA#45D [id number] 12/30 CBC w/ auto diff NRBC, % % 0.00 FINAL Mary Palanisa my Whole Blood [facility] . [address] [place] [address]. [id number]. [place] [address] CLIA#45D [id number] 12/30 CBC w/ auto diff NRBC, absol circle, x 10^3/ uL 10^3/u L 0.000 FINAL Mary Palanisa my Whole Blood [facility] . [address] [place] [address]. [id number]. [place] [address] CLIA#45D [id number] 12/30 CMP Sodiu m mmol/L 136.0 145.0 138 FINAL Mary Palanisa my Plasma [facility] . [address] [place] [address]. [id number]. [place] [address] CLIA#45D [id number] 12/30 CMP Potas sium mmol/L 3.5 5.1 3.8 FINAL Mary Palanisa my Plasma [facility] . [address] [place] [address]. [id number]. [place] [address] CLIA#45D [id number] 12/30 CMP Chlor loly mmol/L 97.0 107.0 101 FINAL Mary Palanisa my Plasma [facility] . [address] [place] [address]. [id number]. [place] [address] CLIA#45D [id number] 12/30 CMP CO2 mmol/L 21.0 32.0 30 FINAL Mary Palanisa my Plasma [facility] . [address] [place] [address] [facility]. [id number]. [place] [address] CLIA#45D [id number] 12/30 CMP Gluco se mg/dL 70.0 110.0 107 FINAL Mary Palanisa my Plasma [facility] . [address] [place] [address] [employer] [facility]. [id number]. [place] [address] CLIA#45D [id number] 12/30 CMP BUN mg/dL 7.0 18.0 23 High FINAL Mary Palanisa my Plasma [facility] . [address] [place] [address]. [id number]. [facility] [address] CLIA#45D [id number] 12/30 CMP Creat inine , mg/dL mg/dL 0.55 1.3 1.56 High FINAL Mary Palanisa my Plasma [facility] . [address] [place] [address]. [id number]. [facility] [address] CLIA#45D [id number] 12/30 CMP GFR estim ate ml/min /1.73m 2 32 Low eFR based on CKD-EPI to estimate renal function. If multiply results by 1.159.60- 89 mL/min/1. 73m^2 without kidney damage may be normal.60 -89 mL/min/1. 73m^2 for 3 months or more, along with kidney damage, may indicate early kidney disease.I f , multiply result by 1.159. FINAL Mary Palanisa my Plasma [facility] . [address] [place] [address]. [id number]. [place] [address] CLIA#45D [id number] 12/30 CMP BUN/C reati nine ratio Ratio 6.0 25.0 14.7 FINAL Mary Palanisa my Plasma [facility] . [address] [place] [address]. [id number]. [facility] [address] CLIA#45D [id number] 12/30 CMP Calci um mg/dL 8.5 10.1 8.7 FINAL Mary Palanisa my Plasma [facility] . [address] [place], [place] [address]. [id number]. [facility] [address] CLIA#45D [id number] 12/30 CMP Total prote in g/dL 6.4 8.2 7.1 FINAL Mary Palanisa my Plasma [facility] . [address] [place] [address]. [id number]. [facility] [address] CLIA#45D [id number] 12/30 CMP Album in g/dL 3.4 5.0 2.9 Low FINAL Mary Palanisa my Plasma [facility] . [address] [place] [address]. [id number]. [place] [address] CLIA#45D [id number] 12/30 CMP A/G ratio Ratio 0.8 2.0 0.7 Low FINAL Mary Palanisa my Plasma [facility] . [address] [place] [address]. [id number]. [place] [address] CLIA#45D [id number] 12/30 CMP Bilir ubin, total mg/dL 0.1 1.0 0.6 FINAL Mary Palanisa my Plasma [facility] . [address] [place] [address]. [id number]. [place] [address] CLIA#45D [id number] 12/30 CMP Alkal ine phosp hatas e U/L 46.0 116.0 99 FINAL Mary Palanisa my Plasma [facility] . [address] [place] [address]. [id number]. [place] [address] CLIA#45D [id number] 12/30 CMP AST/S GOT U/L 15.0 37.0 18 FINAL Mary Palanisa my Plasma [facility] . [address] [place] [address]. [id number]. [place] [address] CLIA#45D [id number] 12/30 CMP ALT/S GPT U/L 14.0 59.0 21 FINAL Mary Palanisa my Plasma [facility] . [address] [place] [address]. [id number]. [place] [address] CLIA#45D [id number] 12/30 TIBC and perce nt sat w/ iron panel Iron ug/dL 50.0 170.0 43.00 Low FINAL Mary Palanisa my Serum [facility] . [address] [place] [address]. [id number]. [place] [address] CLIA#45D [id number] 12/30 TIBC and perce nt sat w/ iron panel TIBC ug/dL 250.0 450.0 442.00 FINAL Mary Palanisa my Serum [facility] . [address] [place] [address]. [id number]. [place] [address] CLIA#45D [id number] 12/30 TIBC and perce nt sat w/ iron panel Iron, % satur ation % 20.0 55.0 9.7 Low FINAL Mary Palanisa my Serum [facility] . [address] [place] [address]. [id number]. [place] [address] CLIA#45D [id number] 12/30 Juliet tin panel Juliet tin ng/mL 8.0 252.0 59 FINAL Mary Palanisa my Serum [facility] . [address] [place] [address]. [id number]. [place] [address] CLIA#45D [id number] 12/30 Folat e panel Folat e, serum ng/mL 3.3 (Note)Ref erence ranges for adults: Low <3.4 ng/mL Borderlin e 3.4 - 5.4 ng/mL Normal >5.4 ng/mL FINAL Mary Palanisa my [facility] [address] [place] [address] [place] 12[place] [address] 12/30 SPEP with immun ofixa tion Album in, SPE g/dL 3.1 5.5 3.4 FINAL Mary Palanisa my [facility] [address] [place] [address] [place] 12[place] [address] 12/30 SPEP with immun ofixa tion Alpha -1 globu ashley g/dL 0.2 0.5 0.4 FINAL Mary Palanisa my [facility] [address] [place] [address] [place] 12[place] [address] 12/30 SPEP with immun ofixa tion Alpha -2 globu ashley g/dL 0.4 1.0 0.8 FINAL Mary Palanisa my [facility] [address] [place] [address] [place] 12[place] [address] 12/30 SPEP with immun ofixa tion Beta globu ashley g/dL 0.5 1.1 1.0 FINAL Mary Palanisa my [facility] [address] [place] [address] [address] 12[place] [address] 12/30 SPEP with immun ofixa tion Gamma globu ashley g/dL 0.7 1.5 1.0 FINAL Mary Palanisa my [facility] [place] [address] [address] 12[place] [address] 12/30 SPEP with immun ofixa tion Parap rotei n band, g/dL g/dL None FINAL Mary rodrigues [facility].[address] [place] [address] [place] 12[place] [address] 12/30 SPEP with immun ofixa tion Total prote in elect ropho resis g/dL 5.7 8.2 6.6 FINAL Mary rodrigues [facility] [place] [address] 12.[place] [address] 12/30 SPEP with immun ofixa tion SPE inter preta tion Results Below Abnormal appearing globulin peak, possibly monoclona l. If indicated , recommend immunotyp ing (Test Code: IES) for further evaluatio n. If the SPEP was orderedwi th reflex, immunotyp ing will be resulted upon completio n. FINAL Mary rodrigues [facility] [place] [address] 12[place] [address] 12/30 SPEP with immun ofixa tion Immun ofixa tion, serum , inter preta tion Results Below No monoclona l peaks detected. FINAL Mary rodrigues [facility] [place] [address] [place] 12[place] [address] 12/30 [place] /robbins da with K/L ratio , free, serum (mg/d L) [place] light chain , free mg/L 3.3 19.4 70.1 High FINAL Mary rodrigues [facility] [place] [address] [place] 12[place] [address] 12/30 [place] /robbins da with K/L ratio , free, serum (mg/d L) Lamb[place] a light chain , free mg/L 5.7 26.3 37.4 High FINAL Mary rodrigues [facility] [place] [address] 12[place] [address] 12/30 [place] /robbins da with K/L ratio , free, serum (mg/d L) Free K/L ratio Ratio 0.26 1.65 1.87 High (Note)Harjinder e kappa/tracy bda ratio in serum of normal individua ls is 0.26-1.65 .Excess productio n of free kappa or lambda chains can alter thisratio . Monoclona l free light chains are found in serum of patientsw ith multiple myeloma, Waldenstr om's macroglob ulinemia, mu-heavyc lon disease, primary amyloidos is, light chain depositio n disease,m onoclonal gammopath y of undetermi christina significa nce, andlympho prolifera tive disorders . Measureme nt of free light chainconc entration in serum is useful for diagnosis , prognosis , monitorin gdisease activity and following response to therapy of these disorders . FINAL Mary Palanisa my Serum [facility] [address] [place] [address] [address] 12.[facility] [address] 12/30 Vitam in B12 panel Vitam in B12 pg/mL 200.0 1100.0 481 FINAL Mary Palanisa my [facility] 12[address] [address] 04/08 CBC w/aut o diff with refle x WBC 10^3/u l 4.8 10.8 5.9 FINAL Mary Palanisa my Whole Blood [facility] . [address] [place] [address]. [place] [address]. [place] [address] CLIA#45D [id number] 04/08 CBC w/aut o diff with refle x RBC 10^6/u l 4.2 5.4 3.90 Low FINAL Mary Palanisa my Whole Blood [facility] . [address] [place] [address]. [id number]. [facility] [address] CLIA#45D [id number] 04/08 CBC w/aut o diff with refle x HGB g/dl 12.0 16.0 12.0 FINAL Mary Palanisa my Whole Blood [facility] . [address] [place] [address]. [id number]. [facility] [address] CLIA#45D [id number] 04/08 CBC w/aut o diff with refle x HCT % 37.0 47.0 38.2 FINAL Mary Palanisa my Whole Blood [facility] . [address] [place] [address]. [id number]. [place] [address] CLIA#45D [id number] 04/08 CBC w/aut o diff with refle x MCV fl 81.0 99.0 97.9 FINAL Mary Palanisa my Whole Blood [facility] . [address] [place] [address]. [id number]. [place] [address] CLIA#45D [id number] 04/08 CBC w/aut o diff with refle x MCH pg 27.0 31.0 30.8 FINAL Mary Palanisa my Whole Blood [facility] . [address] [place] [address]. [id number]. [place] [address] CLIA#45D [id number] 04/08 CBC w/aut o diff with refle x MCHC g/dl 33.0 37.0 31.4 Low FINAL Mary Palanisa my Whole Blood [facility] . [address] [place] [address]. [id number]. [place] [address] CLIA#45D [id number] 04/08 CBC w/aut o diff with refle x RDW % 10.5 14.5 15.8 High FINAL Mary Palanisa my Whole Blood [facility] . [address] [place] [address]. [id number]. [place] [address] CLIA#45D [id number] 04/08 CBC w/aut o diff with refle x PLT 10^3/u l 130.0 400.0 234 FINAL Mary Palanisa my Whole Blood [facility] . [address] [place] [address]. [id number]. [place] [address] CLIA#45D [id number] 04/08 CBC w/aut o diff with refle x MPV fl 9.4 12.3 10.4 FINAL Mary Palanisa my Whole Blood [facility] . [address] [place] [address]. [id number]. [place] [address] CLIA#45D [id number] 04/08 CBC w/aut o diff with refle x Jordy % % 40.0 77.0 60.9 FINAL Mary Palanisa my Whole Blood [facility] . [address] [place] [address]. [id number]. [place] [address] CLIA#45D [id number] 04/08 CBC w/aut o diff with refle x Jordy # (ANC) 10^3/u l 1.5 6.5 3.6 FINAL Mary Palanisa my Whole Blood [facility] . [address] [place] [address]. [id number]. [place] [address] CLIA#45D [id number] 04/08 CBC w/aut o diff with refle x LY % % 15.0 41.0 24.4 FINAL Mary Palanisa my Whole Blood [facility] . [address] [place] [address]. [id number]. [place] [address] CLIA#45D [id number] 04/08 CBC w/aut o diff with refle x LY # 10^3/u l 1.2 3.4 1.4 FINAL Mary Palanisa my Whole Blood [facility] . [address] [place] [address]. [id number]. [place] [address] CLIA#45D [id number] 04/08 CBC w/aut o diff with refle x MO % % 3.0 11.0 9.4 FINAL Mary Palanisa my Whole Blood [facility] . [address] [place] [address]. [id number]. [place] [address] CLIA#45D [id number] 04/08 CBC w/aut o diff with refle x MO # 10^3/u l 0.0 1.0 0.6 FINAL Mary Palanisa my Whole Blood [facility] . [address] [place] [address]. [id number]. [place] [address] CLIA#45D [id number] 04/08 CBC w/aut o diff with refle x EO % % 0.0 3.0 2.6 FINAL Mary Palanisa my Whole Blood [facility] . [address] [place] [address]. [id number]. [place] [address] CLIA#45D [id number] 04/08 CBC w/aut o diff with refle x EO # 10^3/u L 0.0 0.3 0.2 FINAL Mary Palanisa my Whole Blood [facility] . [address] [place] [address]. [id number]. [place] [address] CLIA#45D [id number] 04/08 CBC w/aut o diff with refle x BA % % 0.0 1.0 1.5 High FINAL Mary Palanisa my Whole Blood [facility] . [address] [place] [address]. [id number]. [place] [address] CLIA#45D [id number] 04/08 CBC w/aut o diff with refle x BA # 10^3/u L 0.0 0.2 0.1 FINAL Mary Palanisa my Whole Blood [facility] . [address] [place] [address]. [id number]. [place] [address] CLIA#45D [id number] 04/08 CBC w/aut o diff with refle x IG % % 0.0 0.5 1.20 High FINAL Mary Palanisa my Whole Blood [facility] . [address] [place] [address]. [id number]. [place] [address] CLIA#45D [id number] 04/08 CBC w/aut o diff with refle x IG # 10^3/u L 0.0 0.03 0.07 High FINAL Mary Palanisa my Whole Blood [facility] . [address] [place] [address]. [id number]. [place] [address] CLIA#45D [id number] 04/08 CBC w/aut o diff with refle x NRBC, % % 0.00 FINAL Mary Palanisa my Whole Blood [facility] . [address] [place] [address]. [id number]. [place] [address] CLIA#45D [id number] 04/08 CBC w/aut o diff with refle x NRBC, absol circle, x 10^3/ uL 10^3/u L 0.000 FINAL Mary Palanisa my Whole Blood [facility] . [address] [place] [address]. [id number]. [place] [address] CLIA#45D [id number] 04/08 Juliet tin panel Juliet tin ng/mL 8.0 252.0 460 High FINAL Mary Palanisa my Serum [facility] . [address] [place] [address]. [id number]. [place] [address] CLIA#45D [id number] 04/08 TIBC and perce nt sat w/ iron panel Iron ug/dL 50.0 170.0 87.00 FINAL Mary Palanisa my Serum [facility] . [address] [place] [address]. [id number]. [place] [address] CLIA#45D [id number] 04/08 TIBC and perce nt sat w/ iron panel TIBC ug/dL 250.0 450.0 347.00 FINAL Mary Palanisa my Serum [facility] . [address] [place] [address]. [id number]. [facility] [address] CLIA#45D [id number] 04/08 TIBC and perce nt sat w/ iron panel Iron, % satur ation % 20.0 55.0 25.1 FINAL Mary Palanisa my Serum [facility] . [address] [place] [address]. [id number]. [place] [address]22471 CLIA#45D [id number] 07/07 [place] /robbins da with K/L ratio , free, serum (mg/d L) [place] light chain , free mg/L 3.3 19.4 45.9 High FINAL Mary Palanisa [facility]2 [address] [place] [address] [address] 12.[facility] [address] 07/07 [place] /robbins da with K/L ratio , free, serum (mg/d L) [place] a light chain , free mg/L 5.7 26.3 26.5 High FINAL Mary Palanisa my Serum [facility].2 [address] [place] [address] [address] 12.[facility] [address] 07/07 [place] /robbins da with K/L ratio , free, serum (mg/d L) Free K/L ratio Ratio 0.26 1.65 1.73 High (Note)Harjinder e kappa/tracy bda ratio in serum of normal individua ls is 0.26-1.65 .Excess productio n of free kappa or lambda chains can alter thisratio . Monoclona l free light chains are found in serum of patientsw ith multiple myeloma, [place] om's macroglob ulinemia, mu-heavyc lon disease, primary amyloidos is, light chain depositio n disease,m onoclonal gammopath y of undetermi christina significa nce, andlympho prolifera tive disorders . Measureme nt of free light chainconc entration in serum is useful for diagnosis , prognosis , monitorin gdisease activity and following response to therapy of these disorders . FINAL Mary Palanisa my [facility]2 [address] [place] [address] [address] 12[place] [address] 07/07 CBC w/aut o diff with refle x WBC 10^3/u l 4.8 10.8 5.5 FINAL Mary Palanisa my Whole Blood [facility] . [address] [place], [place] [address]. [id number]. [place] [address] CLIA#45D [id number] 07/07 CBC w/aut o diff with refle x RBC 10^6/u l 4.2 5.4 3.76 Low FINAL Mary Palanisa my Whole Blood [facility] . [address] [place], [place] [address]. [id number]. [place] [address] CLIA#45D [id number] 07/07 CBC w/aut o diff with refle x HGB g/dl 12.0 16.0 11.3 Low FINAL Mary Palanisa my Whole Blood [facility] . [address] [place], [place] [address] [facility]. [id number]. [facility] [address] CLIA#45D [id number] 07/07 CBC w/aut o diff with refle x HCT % 37.0 47.0 35.5 Low FINAL Mary Palanisa my Whole Blood [facility] . [address] [place], [place] [address]. [id number]. [place] [address] CLIA#45D [id number] 07/07 CBC w/aut o diff with refle x MCV fl 81.0 99.0 94.4 FINAL Mary Palanisa my Whole Blood [facility] . [facility] [id number]. [place] [address] CLIA#45D [id number] 07/07 CBC w/aut o diff with refle x MCH pg 27.0 31.0 30.1 FINAL Mary Palanisa my Whole Blood [facility] . [address] [place] [address]. [id number]. [place] [address] CLIA#45D [id number] 07/07 CBC w/aut o diff with refle x MCHC g/dl 33.0 37.0 31.8 Low FINAL Mary Palanisa my Whole Blood [facility] . [address] [place] [address]. [id number]. [place] [address] CLIA#45D [id number] 07/07 CBC w/aut o diff with refle x RDW % 10.5 14.5 13.2 FINAL Mary Palanisa my Whole Blood [facility] . [address] [place] [address]. [id number]. [place] [address] CLIA#45D [id number] 07/07 CBC w/aut o diff with refle x PLT 10^3/u l 130.0 400.0 277 FINAL Mary Palanisa my Whole Blood [facility] . [address] [place] [address]. [id number]. [place] [address] CLIA#45D [id number] 07/07 CBC w/aut o diff with refle x MPV fl 9.4 12.3 10.3 FINAL Mary Palanisa my Whole Blood [facility] . [address] [place] [address]. [id number]. [place] [address] CLIA#45D [id number] 07/07 CBC w/aut o diff with refle x Jordy % % 40.0 77.0 44.9 FINAL Mary Palanisa my Whole Blood [facility] . [address] [place] [address]. [id number]. [place] [address] CLIA#45D [id number] 07/07 CBC w/aut o diff with refle x Jordy # (ANC) 10^3/u l 1.5 6.5 2.5 FINAL Mary Palanisa my Whole Blood [facility] . [address] [place] [address]. [id number]. [place] [address] CLIA#45D [id number] 07/07 CBC w/aut o diff with refle x LY % % 15.0 41.0 29.0 FINAL Mary Palanisa my Whole Blood [facility] . [address] [place] [address]. [id number]. [place] [address] CLIA#45D [id number] 07/07 CBC w/aut o diff with refle x LY # 10^3/u l 1.2 3.4 1.6 FINAL Mary Palanisa my Whole Blood [facility] . [address] [place] [address]. [id number]. [place] [address] CLIA#45D [id number] 07/07 CBC w/aut o diff with refle x MO % % 3.0 11.0 11.6 High FINAL Mary Palanisa my Whole Blood [facility] . [address] [place] [address]. [id number]. [place] [address] CLIA#45D [id number] 07/07 CBC w/aut o diff with refle x MO # 10^3/u l 0.0 1.0 0.6 FINAL Mary Palanisa my Whole Blood [facility] . [address] [place] [address]. [id number]. [place] [address] CLIA#45D [id number] 07/07 CBC w/aut o diff with refle x EO % % 0.0 3.0 12.5 High FINAL Mary Palanisa my Whole Blood [facility] . [address] [place] [address]. [id number]. [place] [address] CLIA#45D [id number] 07/07 CBC w/aut o diff with refle x EO # 10^3/u L 0.0 0.3 0.7 High FINAL Mary Palanisa my Whole Blood [facility] . [address] [place] [address]. [id number]. [place] [address] CLIA#45D [id number] 07/07 CBC w/aut o diff with refle x BA % % 0.0 1.0 0.9 FINAL Mary Palanisa my Whole Blood [facility] . [address] [place], [place] [address]. [id number]. [place] [address] CLIA#45D [id number] 07/07 CBC w/aut o diff with refle x BA # 10^3/u L 0.0 0.2 0.1 FINAL Mary Palanisa my Whole Blood [facility] . [address] [place] [address]. [id number]. [place] [address] CLIA#45D [id number] 07/07 CBC w/aut o diff with refle x IG % % 0.0 0.5 1.10 High FINAL Mary Palanisa my Whole Blood [facility] . [address] [place], [place] [address]. [id number]. [place] [address] CLIA#45D [id number] 07/07 CBC w/aut o diff with refle x IG # 10^3/u L 0.0 0.03 0.06 High FINAL Mary Palanisa my Whole Blood [facility] . [address] [place], [place] [address]. [id number]. [place] [address] CLIA#45D [id number] 07/07 CBC w/aut o diff with refle x NRBC, % % 0.0 0.2 0.0 FINAL Mary Palanisa my Whole Blood [facility] . [address] [place] [address]. [id number]. [place] [address] CLIA#45D [id number] 07/07 CBC w/aut o diff with refle x NRBC, absol circle, x 10^3/ uL 10^3/u L 0.0 0.012 0.000 FINAL Mary Palanisa my Whole Blood [facility] . [address] [place], [place] [address]. [id number]. [place] [address] CLIA#45D [id number] 07/07 TIBC and perce nt sat w/ iron panel Iron ug/dL 50.0 170.0 75.00 FINAL Mary Palanisa my Serum [facility] . [address] [place], [place] [address]. [id number]. [place] [address] CLIA#45D [id number] 07/07 TIBC and perce nt sat w/ iron panel TIBC ug/dL 250.0 450.0 272.00 FINAL Mary Palanisa my Serum [facility] . [address] [place] [address]. [id number]. [facility] [address] CLIA#45D [id number] 07/07 TIBC and perce nt sat w/ iron panel Iron, % satur ation % 20.0 55.0 27.6 FINAL Mary Palanisa my Serum [facility] . [address] [place] [address]. [id number]. [place] [address]22471 CLIA#45D [id number] 07/07 Juliet tin panel Juliet tin ng/mL 8.0 252.0 738 High FINAL Mary Palanisa my Serum [facility] . [address] [place] [address]. [id number]. [place] [address]22471 CLIA#45D [id number] 07/07 SPEP with immun ofixa tion Album in, SPE g/dL 3.1 5.5 3.2 FINAL Mary Palanisa my [facility] [place] [address] [address] 12[place] [address] 07/07 SPEP with immun ofixa tion Alpha -1 globu ashley g/dL 0.2 0.5 0.5 FINAL Mary Palanisa my [facility] [place] [address] [address] 12[place] [address] 07/07 SPEP with immun ofixa tion Alpha -2 globu ashley g/dL 0.4 1.0 0.8 FINAL Mary Palanisa my [facility] [place] [address] [address] 12[place] [address] 07/07 SPEP with immun ofixa tion Beta globu ashley g/dL 0.5 1.1 0.7 FINAL Mary Palanisa my [facility] [place] [address] [address] 12[place] [address] 07/07 SPEP with immun ofixa tion Gamma globu ashley g/dL 0.7 1.5 0.9 FINAL Mary Palanisa my [facility] [place] [address] [address] 12[place] [address] 07/07 SPEP with immun ofixa tion Parap rotei n band, g/dL g/dL None FINAL Mary Chisa my [facility].2 [address] [address] [place] [address] [address] 07/07 SPEP with immun ofixa tion Total prote in elect ropho resis g/dL 5.7 8.2 6.1 FINAL Mary Johnanisa my [facility].2 [address] [address] [place] [address] 07/07 SPEP with immun ofixa tion SPE inter preta tion Results Below Normal serum total protein with normal electroph oretic pattern. FINAL Mary Chisa my [facility]2 [address] [address] [place] [address] [address] 07/07 SPEP with immun ofixa tion Immun ofixa tion, serum , inter preta tion Results Below No monoclona l peaks detected. FINAL Mary Johnanisa my [facility]2 [address] [address] [place] [address] 07/07 CMP Sodiu m mmol/L 136.0 145.0 137 FINAL Mary Johnanisa my Plasma [facility] . [address] [place] [address]. [place] [id number]. [place] [address] CLIA#45D [id number] 07/07 CMP Potas sium mmol/L 3.5 5.1 4.1 FINAL Mary Palanisa my Plasma [facility] . [address] [place] [address]. [id number]. [place] [address] CLIA#45D [id number] 07/07 CMP Chlor loly mmol/L 97.0 107.0 101 FINAL Mary Palanisa my Plasma [facility] . [address] [place] [address] [facility]. [id number]. [place] [address] CLIA#45D [id number] 07/07 CMP CO2 mmol/L 21.0 32.0 32 FINAL Mary Palanisa my Plasma [facility] . [address] [place] [address]. [id number]. [place] [address] CLIA#45D [id number] 07/07 CMP Gluco se mg/dL 74.0 106.0 115 High FINAL Mary Palanisa my Plasma [facility] . [address] [place] [address]. [id number]. [place] 2022471 CLIA#45D [id number] 07/07 CMP BUN mg/dL 7.0 18.0 21 High FINAL Mary Palanisa my Plasma [facility] . [address] [place] [address]. [id number]. [place] [address] CLIA#45D [id number] 07/07 CMP Creat inine , mg/dL mg/dL 0.55 1.3 1.50 High FINAL Mary Palanisa my Plasma [facility] . [address] [place] [address]. [id number]. [place] [address] CLIA#45D [id number] 07/07 CMP GFR estim ate ml/min /1.73m 2 36 Low Result based on the eGFR 2020 calculati on.60-89 mL/min/1. 73m^2 without kidney damage may be normal.60 -89 mL/min/1. 73m^2 for 3 months or more, along with kidney damage, may indicate early kidney disease.C alculatio n modified to the 2020 formula effective 01/16/23. FINAL Mary Palanisa my Plasma [facility] . [address] [place] [address]. [id number]. [place] 2022471 CLIA#45D [id number] 07/07 CMP BUN/C reati nine ratio Ratio 6.0 25.0 14.0 FINAL Mary Palanisa my Plasma [facility] . [address] [place] [address]. [id number]. [place] 2022471 CLIA#45D [id number] 07/07 CMP Calci um mg/dL 8.5 10.1 9.6 FINAL Mary Palanisa my Plasma [facility] . [address] [place] [address]. [id number]. [place] 2022471 CLIA#45D [id number] 07/07 CMP Total prote in g/dL 6.4 8.2 6.5 FINAL Mary Palanisa my Plasma [facility] . [address] [place] [address] [facility]. [id number]. [place] [address] CLIA#45D [id number] 07/07 CMP Album in g/dL 3.4 5.0 2.9 Low FINAL Mary Palanisa my Plasma [facility] . [address] [place], [place] [address]. [id number]. [place] [address] CLIA#45D [id number] 07/07 CMP A/G ratio Ratio 0.8 2.0 0.8 FINAL Mary Palanisa my Plasma [facility] . [address] [place], [place] [address]. [id number]. [place] [address] CLIA#45D [id number] 07/07 CMP Bilir ubin, total mg/dL 0.2 1.0 0.5 FINAL Mary Palanisa my Plasma [facility] . [address] [place], [place] [address]. [id number]. [place] [address] CLIA#45D [id number] 07/07 CMP Alkal ine phosp hatas e U/L 46.0 116.0 83 FINAL Mary Palanisa my Plasma [facility] . [address] [place], [place] [address]. [id number]. [place] [address] CLIA#45D [id number] 07/07 CMP AST/S GOT U/L 15.0 37.0 22 FINAL Mary Palanisa my Plasma [facility] . [address] [place], [place] [address]. [id number]. [place] [address] CLIA#45D [id number] 07/07 CMP ALT/S GPT U/L 14.0 59.0 24 FINAL Mary Palanisa my Plasma [facility] . [address] [place] [address] [facility]. [id number]. [place] 2022471 CLIA#45D [id number] 10/27 CMP Sodiu m mmol/L 136.0 145.0 140 FINAL Mary Palanisa my Plasma [facility] . [address] [place] [address] [facility]. [id number]. [place] [address] CLIA#45D [id number] 10/27 CMP Potas sium mmol/L 3.5 5.1 4.7 FINAL Mary Palanisa my Plasma [facility] . [address] [place] [address] [facility]. [id number]. [place] [address] CLIA#45D [id number] 10/27 CMP Chlor loly mmol/L 97.0 107.0 103 FINAL Mary Palanisa my Plasma [facility] . [address] [place] [address] [facility]. [id number]. [place] [address] CLIA#45D [id number] 10/27 CMP CO2 mmol/L 21.0 32.0 25 FINAL Mary Palanisa my Plasma [facility] . [address] [place] [address] [facility]. [id number]. [place] [address] CLIA#45D [id number] 10/27 CMP Gluco se mg/dL 74.0 106.0 88 FINAL Mary Palanisa my Plasma [facility] . [address] [place] [address] [facility]. [id number]. [place] [address] CLIA#45D [id number] 10/27 CMP BUN mg/dL 7.0 18.0 26 High FINAL Mary Palanisa my Plasma [facility] . [address] [place] [address] [facility]. [id number]. [place] [address] CLIA#45D [id number] 10/27 CMP Creat inine , mg/dL mg/dL 0.55 1.3 1.08 FINAL Mary Johnanisa my Plasma [facility] . [address] [place] [address] [facility] [id number]. [place] 2022471 CLIA#45D [id number] 10/27 CMP GFR estim ate ml/min /1.73m 2 53 Low Result based on the eGFR 2020 calculati on.60-89 mL/min/1. 73m^2 without kidney damage may be normal.60 -89 mL/min/1. 73m^2 for 3 months or more, along with kidney damage, may indicate early kidney disease.C alculatio n modified to the 2020 formula effective 01/16/23. FINAL Mary Palanisa my Plasma [facility] . [address] [place] [address] [facility]. [id number]. [place] [address] CLIA#45D [id number] 10/27 CMP BUN/C reati nine ratio Ratio 6.0 25.0 24.1 FINAL Mary Palanisa my Plasma [facility] . [address] [place] [address]. [id number]. [place] [address] CLIA#45D [id number] 10/27 CMP Calci um mg/dL 8.5 10.1 8.8 FINAL Mary Palanisa my Plasma [facility] . [address] [place] [address]. [id number]. [place] [address] CLIA#45D [id number] 10/27 CMP Total prote in g/dL 6.4 8.2 6.8 FINAL Mary Palanisa my Plasma [facility] . [address] [place] [address]. [id number]. [place] [address] CLIA#45D [id number] 10/27 CMP Album in g/dL 3.4 5.0 2.7 Low FINAL Mary Palanisa my Plasma [facility] . [address] [place] [address]. [id number]. [place] [address] CLIA#45D [id number] 10/27 CMP A/G ratio Ratio 0.8 2.0 0.7 Low FINAL Mary Palanisa my Plasma [facility] . [address] [place] [address]. [id number]. [place] [address] CLIA#45D [id number] 10/27 CMP Bilir ubin, total mg/dL 0.2 1.0 0.3 FINAL Mary Palanisa my Plasma [facility] . [address] [place] [address]. [id number]. [place] [address] CLIA#45D [id number] 10/27 CMP Alkal ine phosp hatas e U/L 46.0 116.0 89 FINAL Mary Palanisa my Plasma [facility] . [address] [place] [address]. [id number]. [place] [address] CLIA#45D [id number] 10/27 CMP AST/S GOT U/L 15.0 37.0 18 FINAL Mary Palanisa my Plasma [facility] . [address] [place] [address]. [id number]. [place] [address] CLIA#45D [id number] 10/27 CMP ALT/S GPT U/L 14.0 59.0 19 FINAL Mary Palanisa my Plasma [facility] . [address] [place] [address]. [id number]. [place] [address] CLIA#45D [id number] 10/27 CBC w/aut o diff with refle x WBC 10^3/u l 4.8 10.8 9.7 FINAL Mary Palanisa my Whole Blood [facility] . [address] [place] [address]. [id number]. [place] [address] CLIA#45D [id number] 10/27 CBC w/aut o diff with refle x RBC 10^6/u l 4.2 5.4 3.48 Low FINAL Mary Palanisa my Whole Blood [facility] . [address] [place] [address]. [id number]. [place] [address] CLIA#45D [id number] 10/27 CBC w/aut o diff with refle x HGB g/dl 12.0 16.0 10.0 Low FINAL Mary Palanisa my Whole Blood [facility] . [address] [place] [address]. [id number]. [place] [address] CLIA#45D [id number] 10/27 CBC w/aut o diff with refle x HCT % 37.0 47.0 32.4 Low FINAL Mary Palanisa my Whole Blood [facility] . [address] [place] [address]. [id number]. [place] [address] CLIA#45D [id number] 10/27 CBC w/aut o diff with refle x MCV fl 81.0 99.0 93.1 FINAL Mary Palanisa my Whole Blood [facility] . [address] [place] [address]. [id number]. [place] [address] CLIA#45D [id number] 10/27 CBC w/aut o diff with refle x MCH pg 27.0 31.0 28.7 FINAL Mary Palanisa my Whole Blood [facility] . [address] [place] [address]. [id number]. [place] [address] CLIA#45D [id number] 10/27 CBC w/aut o diff with refle x MCHC g/dl 33.0 37.0 30.9 Low FINAL Mary Palanisa my Whole Blood [facility] . [address] [place] [address]. [id number]. [place] [address] CLIA#45D [id number] 10/27 CBC w/aut o diff with refle x RDW % 10.5 14.5 15.3 High FINAL Mary Palanisa my Whole Blood [facility] . [address] [place] [address]. [id number]. [place] [address] CLIA#45D [id number] 10/27 CBC w/aut o diff with refle x PLT 10^3/u l 130.0 400.0 446 High FINAL Mary Palanisa my Whole Blood [facility] . [address] [place] [address]. [id number]. [place] [address] CLIA#45D [id number] 10/27 CBC w/aut o diff with refle x MPV fl 9.4 12.3 10.2 FINAL Mary Palanisa my Whole Blood [facility] . [address] [place] [address]. [id number]. [place] [address] CLIA#45D [id number] 10/27 CBC w/aut o diff with refle x Jordy % % 40.0 77.0 64.4 FINAL Mary Palanisa my Whole Blood [facility] . [address] [place] [address]. [id number]. [place] [address] CLIA#45D [id number] 10/27 CBC w/aut o diff with refle x Jordy # (ANC) 10^3/u l 1.5 6.5 6.2 FINAL Mary Palanisa my Whole Blood [facility] . [address] [place] [address]. [id number]. [place] [address] CLIA#45D [id number] 10/27 CBC w/aut o diff with refle x LY % % 15.0 41.0 14.6 Low FINAL Mary Palanisa my Whole Blood [facility] . [address] [place] [address]. [id number]. [place] [address] CLIA#45D [id number] 10/27 CBC w/aut o diff with refle x LY # 10^3/u l 1.2 3.4 1.4 FINAL Mary Palanisa my Whole Blood [facility] . [address] [place] [address]. [id number]. [place] [address] CLIA#45D [id number] 10/27 CBC w/aut o diff with refle x MO % % 3.0 11.0 10.7 FINAL Mary Palanisa my Whole Blood [facility] . [address] [place] [address]. [id number]. [place] [address] CLIA#45D [id number] 10/27 CBC w/aut o diff with refle x MO # 10^3/u l 0.0 1.0 1.0 FINAL Mary Palanisa my Whole Blood [facility] . [address] [place] [address]. [id number]. [place] [address] CLIA#45D [id number] 10/27 CBC w/aut o diff with refle x EO % % 0.0 3.0 7.1 High FINAL Mary Palanisa my Whole Blood [facility] . [address] [place] [address]. [id number]. [place] [address] CLIA#45D [id number] 10/27 CBC w/aut o diff with refle x EO # 10^3/u L 0.0 0.3 0.7 High FINAL Mary Palanisa my Whole Blood [facility] . [address] [place] [address]. [id number]. [place] [address] CLIA#45D [id number] 10/27 CBC w/aut o diff with refle x BA % % 0.0 1.0 1.1 High FINAL Mary Palanisa my Whole Blood [facility] . [address] [place] [address]. [id number]. [place] [address] CLIA#45D [id number] 10/27 CBC w/aut o diff with refle x BA # 10^3/u L 0.0 0.2 0.1 FINAL Mary Palanisa my Whole Blood [facility] . [address] [place] [address]. [id number]. [place] [address] CLIA#45D [id number] 10/27 CBC w/aut o diff with refle x IG % % 0.0 0.5 2.10 High FINAL Mary Palanisa my Whole Blood [facility] . [address] [place] [address]. [id number]. [place] [address] CLIA#45D [id number] 10/27 CBC w/aut o diff with refle x IG # 10^3/u L 0.0 0.03 0.20 High FINAL Mary Palanisa my Whole Blood [facility] . [address] [place] [address]. [id number]. [place] [address] CLIA#45D [id number] 10/27 CBC w/aut o diff with refle x NRBC, % % 0.0 0.2 0.0 FINAL Mary Palanisa my Whole Blood [facility] . [address] [place] [address]. [id number]. [place] [address] CLIA#45D [id number] 10/27 CBC w/aut o diff with refle x NRBC, absol circle, x 10^3/ uL 10^3/u L 0.0 0.012 0.000 FINAL Mary Palanisa my Whole Blood [facility] . [address] [place] [address]. [id number]. [place] [address] CLIA#45D [id number] 10/27 Juliet tin panel Juliet tin ng/mL 8.0 252.0 953 High FINAL Mary Palanisa my Serum [facility] . [address] [place] [address]. [id number]. [place] [address] CLIA#45D [id number] 10/27 TIBC and perce nt sat w/ iron panel Iron ug/dL 50.0 170.0 24.00 Low FINAL Mary Palanisa my Serum [facility] . [address] [place] [address]. [id number]. [place] [address] CLIA#45D [id number] 10/27 TIBC and perce nt sat w/ iron panel TIBC ug/dL 250.0 450.0 202.00 Low FINAL Mary Palanisa my Serum [facility] . [address] [facility]. [id number]. [place] [address] CLIA#45D [id number] 10/27 TIBC and perce nt sat w/ iron panel Iron, % satur ation % 20.0 55.0 11.9 Low FINAL Mary Palanisa my Serum [facility] . [address] [facility]. [id number]. [place] [address] CLIA#45D [id number] 04/26 CMP Sodiu m mmol/L 136.0 145.0 140 FINAL Mary Palanisa my Plasma [facility].[address] [facility] [address] [place] [address] CLIA#45D [id number] 04/26 CMP Potas sium mmol/L 3.5 5.1 4.9 FINAL Mary Palanisa my Plasma [facility].[address] [facility] [address] [place] [address] CLIA#45D [id number] 04/26 CMP Chlor loly mmol/L 97.0 107.0 104 FINAL Mary Palanisa my Plasma [facility].[address] [facility] [address] [place] [address] CLIA#45D [id number] 04/26 CMP CO2 mmol/L 21.0 32.0 26.0 FINAL Mary Palanisa my Plasma [facility].[address] [facility] [address] [place] [address] CLIA#45D [id number] 04/26 CMP Gluco se mg/dL 74.0 106.0 120 High FINAL Mary Palanisa my Plasma [facility].[address] [facility] [address] [place] [address] CLIA#45D [id number] 04/26 CMP BUN mg/dL 7.0 18.0 37 High FINAL Mary Palanisa my Plasma [facility].[address] [facility] [address] [place] [address] CLIA#45D [id number] 04/26 CMP Creat inine , mg/dL mg/dL 0.55 1.3 1.42 High FINAL Mary Palanisa my Plasma [facility].52 [address] [facility] [address] [place] [address] CLIA#45D [id number] 04/26 CMP GFR estim ate mil/mi n/1.73 m2 38 Low Result based on the eGFR 2020 calculati on.60-89 mL/min/1. 73m^2 without kidney damage may be normal.60 -89 mL/min/1. 73m^2 for 3 months or more, along with kidney damage, may indicate early kidney disease.C alculatio n modified to the 2020 formula effective 01/16/23. FINAL Mary Palanisa my Plasma [facility].[address] [facility] [address] [place] [address] CLIA#45D [id number] 04/26 CMP BUN/C reati nine ratio 6.0 25.0 26.1 High FINAL Mary Palanisa my Plasma [facility].[address] [facility] [address] [place] [address] CLIA#45D [id number] 04/26 CMP Album in g/dL 3.4 5.0 3.2 Low FINAL Mary Palanisa my Plasma [facility].[address] [facility] [address] [place] [address] CLIA#45D [id number] 04/26 CMP Calci um mg/dL 8.5 10.1 9.1 FINAL Mary Palanisa my Plasma [facility] [address] [facility] [address] [place] [address] CLIA#45D [id number] 04/26 CMP Total prote in g/dL 6.4 8.2 7.8 FINAL Mary Palanisa my Plasma [facility].[address] [facility] [address] [place] [address] CLIA#45D [id number] 04/26 CMP Globu ashley g/dL 2.2 4.2 4.6 High FINAL Mary Palanisa my Plasma [facility].[address] [facility] [address] [place] [address] CLIA#45D [id number] 04/26 CMP A/G ratio 0.8 2.0 0.7 Low FINAL Mary Palanisa my Plasma [facility].[address] [facility] [address] [place] [address] CLIA#45D [id number] 04/26 CMP Bilir ubin, total mg/dL 0.2 1.0 0.5 FINAL Mary Palanisa my Plasma [facility].[address] [facility] [address] [place] [address] CLIA#45D [id number] 04/26 CMP Alkal ine phosp hatas e U/L 46.0 116.0 93 FINAL Mary Palanisa my Plasma [facility].[address] [facility] [address] [place] [address] CLIA#45D [id number] 04/26 CMP AST/S GOT U/L 15.0 37.0 17 FINAL Mary Palanisa my Plasma [facility].[address] [facility] [address] [place] [address] CLIA#45D [id number] 04/26 CMP ALT/S GPT U/L 14.0 59.0 26 FINAL Mary Palanisa my Plasma [facility].[address] [facility] [address] [place] [address] CLIA#45D [id number] 04/26 SPEP with immun ofixa tion Total prote in g/dL 6.1 8.1 7.1 FINAL Mary Palanisa my Serum [facility] [place] [address] [address] [address] 04/26 SPEP with immun ofixa tion NOHEMI inter preta tion Results Below Normal pattern. No monoclona l proteins detected. FINAL Mary Palanisa my Serum [facility] [place] [address] 12.[place] [address] 04/26 SPEP with immun ofixa tion Album in, SPE g/dL 3.8 4.8 3.6 Low FINAL Mary Palanisa my Serum [facility] [place] [address] 12.[place] [address] 04/26 SPEP with immun ofixa tion Alpha -1 globu ashley g/dL 0.2 0.3 0.3 FINAL Mary Palanisa my Serum [facility] [place] [address] 12.[place] [address] 04/26 SPEP with immun ofixa tion Alpha -2 globu ashley g/dL 0.5 0.9 0.8 FINAL Mary Palanisa my Serum [facility] [place] [address] 12.[place] [address] 04/26 SPEP with immun ofixa tion Beta- 1 g/dL 0.4 0.6 0.5 FINAL Mary Palanisa my Serum [facility] [place] [address] 12.[place] [address] 04/26 SPEP with immun ofixa tion Beta- 2 g/dL 0.2 0.5 0.4 FINAL Mary Palanisa my Serum [facility] [place] [address] 12.[place] [address] 04/26 SPEP with immun ofixa tion Gamma globu ashley g/dL 0.8 1.7 1.5 FINAL Mary Palanisa my Serum [facility] [place] [address] 12.[place] [address] 04/26 SPEP with immun ofixa tion SPE inter preta tion Results Below Abnormal appearing globulin peak, possibly monoclona l. If indicated , recommend immunotyp ing (Test Code: [id number]) for further evaluatio n. If the SPEP wasordere d with reflex, immunotyp ing will be resulted upon completio n. FINAL Mary Palanisa my Serum [facility] [place] [address] [address] [address] 04/26 [place] /robbins da with K/L ratio , free, serum (mg/d L) [place] light chain , free mg/L 3.3 19.4 86.9 High FINAL Mary Palanisa my Serum [facility] [place] [address] [address] 12[place] [address] 04/26 [place] /robbins da with K/L ratio , free, serum (mg/d L) [place] a light chain , free mg/L 5.7 26.3 37.3 High FINAL Mary Palanisa lilia Serum [facility] [place] [address] [address] [address] 04/26 [place] /robbins da with K/L ratio , free, serum (mg/d L) Free K/L ratio Ratio 0.26 1.65 2.33 High (Note)Harjinder e kappa/tracy bda ratio in serum of normal individua ls is 0.26-1.65 .Excess productio n of free kappa or lambda chains can alter thisratio . Monoclona l free light chains are found in serum of patientsw ith multiple myeloma, Waldenstr om's macroglob ulinemia, mu-heavyc lon disease, primary amyloidos is, light chain depositio n disease,m onoclonal gammopath y of undetermi christina significa nce, andlympho prolifera tive disorders . Measureme nt of free light chainconc entration in serum is useful for diagnosis , prognosis , monitorin gdisease activity and following response to therapy of these disorders . FINAL Mary Palanisa lilia Serum [facility] [place] [address] [address] [address] 04/26 CBC w/aut o diff with refle x WBC 10^3/u L 4.8 10.8 6.4 FINAL Mary Palanisa my Whole Blood [facility].[address] [facility] [address] .[address] [place] [address] CLIA#45D [id number] 04/26 CBC w/aut o diff with refle x RBC 10^6/u L 4.2 5.4 4.06 Low FINAL Mary Palanisa my Whole Blood [facility].[address] [facility] [address] [place] [address] CLIA#45D [id number] 04/26 CBC w/aut o diff with refle x HGB g/dL 12.0 16.0 11.1 Low FINAL Mary Palanisa my Whole Blood [facility].[address] [facility] [address] [place] [address] CLIA#45D [id number] 04/26 CBC w/aut o diff with refle x HCT % 37.0 47.0 37.0 FINAL Mary Palanisa my Whole Blood [facility].[address] [facility] [address] [place] [address] CLIA#45D [id number] 04/26 CBC w/aut o diff with refle x MCV fL 81.0 99.0 91.1 FINAL Mary Palanisa my Whole Blood [facility].[address] [facility] [address] [place] [address] CLIA#45D [id number] 04/26 CBC w/aut o diff with refle x MCH pg 27.0 31.0 27.3 FINAL Mary Palanisa my Whole Blood [facility].[address] [facility] [address] [place] [address] CLIA#45D [id number] 04/26 CBC w/aut o diff with refle x MCHC g/dL 33.0 37.0 30.0 Low FINAL Mary Palanisa my Whole Blood [facility].[address] [facility] [address] [place] [address] CLIA#45D [id number] 04/26 CBC w/aut o diff with refle x PLT 10^3/u L 130.0 400.0 256 FINAL Mary Palanisa my Whole Blood [facility].[address] [facility] [address] e [address] [place] [address] CLIA#45D [id number] 04/26 CBC w/aut o diff with refle x MPV fL 9.4 12.3 10.7 FINAL Mary Palanisa my Whole Blood [facility].[address] [facility] [address] [place] [address] CLIA#45D [id number] 04/26 CBC w/aut o diff with refle x RDW % 10.5 14.5 15.9 High FINAL Mary Palanisa my Whole Blood [facility].[address] [facility] [address] [place] [address] CLIA#45D [id number] 04/26 CBC w/aut o diff with refle x Jordy % % 40.0 77.0 56.0 FINAL Mary Palanisa my Whole Blood [facility].[address] [facility] [address] [place] [address] CLIA#45D [id number] 04/26 CBC w/aut o diff with refle x Jordy # (ANC) 10^3/u L 1.5 6.5 3.57 FINAL Mary Palanisa my Whole Blood [facility].[address] [facility] [address] [place] [address] CLIA#45D [id number] 04/26 CBC w/aut o diff with refle x IG % % 0.0 0.5 0.3 FINAL Mary Palanisa my Whole Blood [facility].[address] [facility] [address] [place] [address] CLIA#45D [id number] 04/26 CBC w/aut o diff with refle x IG # 10^3/u L 0.0 0.03 0.02 FINAL Mary Palanisa my Whole Blood [facility].[address] [facility] [address] [place] [address] CLIA#45D [id number] 04/26 CBC w/aut o diff with refle x LY % % 15.0 41.0 19.6 FINAL Mary Palanisa my Whole Blood [facility].[address] [facility] [address] [place] [address] CLIA#45D [id number] 04/26 CBC w/aut o diff with refle x LY # 10^3/u L 1.2 3.4 1.25 FINAL Mary Palanisa my Whole Blood [facility].[address] [facility] [address] e [address] [place] [address] CLIA#45D [id number] 04/26 CBC w/aut o diff with refle x MO % % 3.0 11.0 9.7 FINAL Mary Palanisa my Whole Blood [facility].[address] [facility] [address] [place] [address] CLIA#45D [id number] 04/26 CBC w/aut o diff with refle x MO # 10^3/u L 0.0 1.0 0.62 FINAL Mary Palanisa my Whole Blood [facility].[address] [facility] [address] [place] [address] CLIA#45D [id number] 04/26 CBC w/aut o diff with refle x EO % % 0.0 3.0 13.0 High FINAL Mary Palanisa my Whole Blood [facility].[address] [facility] [address] [place] [address] CLIA#45D [id number] 04/26 CBC w/aut o diff with refle x EO # 10^3/u L 0.0 0.3 0.83 High FINAL Mary Palanisa my Whole Blood [facility].[address] [facility] [address] [place] [address] CLIA#45D [id number] 04/26 CBC w/aut o diff with refle x BA % % 0.0 1.0 1.4 High FINAL Mary Palanisa my Whole Blood [facility].[address] [facility] [address] [place] [address] CLIA#45D [id number] 04/26 CBC w/aut o diff with refle x BA # 10^3/u L 0.0 0.2 0.09 FINAL Mary Palanisa my Whole Blood [facility].[address] [facility] [address] [place] [address] CLIA#[id number] 04/26 CBC w/aut o diff with refle x NRBC, % % 0.0 0.2 0.0 FINAL Mary Palanisa my Whole Blood [facility].52 36 [facility] [address] [place] .[place] [address] CLIA#45D [id number] 04/26 CBC w/aut o diff with refle x NRBC, absol circle, x 10^3/ uL 10^3/u L 0.0 0.01 0.00 FINAL Mary Palanisa my Whole Blood [facility].52 36 [facility] [address] [place] [address] CLIA#45D [id number] 04/26 TIBC and perce nt sat w/ iron panel Iron ug/dL 65.0 175.0 30.0 Low FINAL Mary Palanisa my Serum [facility].52 36 [facility] [address] [place] [address] CLIA#45D [id number] 04/26 TIBC and perce nt sat w/ iron panel TIBC ug/dL 250.0 450.0 283.0 FINAL Mary Palanisa my Serum [facility].52 36 [facility] [address] [place] [address] CLIA#45D [id number] 04/26 TIBC and perce nt sat w/ iron panel Iron, % satur ation % 15.0 50.0 11 Low FINAL Mary Palanisa my Serum [facility].52 36 [facility] [address] [place] [address] CLIA#45D [id number] 04/26 Juliet tin panel Juliet tin ng/mL 8.0 252.0 266 High FINAL Mary Palanisa my Serum [facility] [address] [place] [address] CLIA#45D [id number] 11/07 TIBC and perce nt sat w/ iron panel Iron ug/dL 50.0 170.0 60.0 FINAL [facility] [address] [place] [address] CLIA#45D [id number] 11/07 TIBC and perce nt sat w/ iron panel TIBC ug/dL 250.0 450.0 311.0 FINAL [facility].52 36 [facility] [address] [place] [address] CLIA#45D [id number] 11/07 TIBC and perce nt sat w/ iron panel Iron, % satur ation % 15.0 50.0 19 FINAL [facility].52 36 [facility] [address] [place] [address] CLIA#45D [id number] 11/07 Juliet tin panel Juliet tin ng/mL 8.0 252.0 228 FINAL [facility].52 36 [facility] [address] [place] [address] CLIA#45D [id number] 11/07 CBC w/aut o diff with refle x WBC 10^3/u L 4.8 10.8 4.6 Low FINAL Luis Tucker Whole Blood [facility].52 36 [facility] [address] [place] [address] CLIA#45D [id number] 11/07 CBC w/aut o diff with refle x RBC 10^6/u L 4.2 5.4 4.23 FINAL Luis Tucker Whole Blood [facility].52 36 [facility] [address] [place] [address] CLIA#45D [id number] 11/07 CBC w/aut o diff with refle x HGB g/dL 12.0 16.0 12.4 FINAL Luis Tucker Whole Blood [facility].[address] [facility] [address] [place] [address] CLIA#45D [id number] 11/07 CBC w/aut o diff with refle x HCT % 37.0 47.0 40.8 FINAL Luis Tucker Whole Blood [facility].52 36 [address] e [address] [place] [address] CLIA#45D [id number] 11/07 CBC w/aut o diff with refle x MCV fL 81.0 99.0 96.5 FINAL Luis Tucker Whole Blood [facility].52 36 [address] ty e [address] [place] [address] CLIA#45D [id number] 11/07 CBC w/aut o diff with refle x MCH pg 27.0 31.0 29.3 FINAL Luis Tucker Whole Blood [facility].52 36 [facility] it e [address] [place] [address] CLIA#45D [id number] 11/07 CBC w/aut o diff with refle x MCHC g/dL 33.0 37.0 30.4 Low FINAL Luis Tucker Whole Blood [facility].52 36 [facility] it e [address] [place] [address] CLIA#45D [id number] 11/07 CBC w/aut o diff with refle x PLT 10^3/u L 130.0 400.0 216 FINAL Luis Tucker Whole Blood [facility].52 [address] [address] [place] [address] CLIA#45D [id number] 11/07 CBC w/aut o diff with refle x MPV fL 9.4 12.3 10.3 FINAL Luis Tucker Whole Blood [facility].52 [address] [address] [place] [address] CLIA#45D [id number] 11/07 CBC w/aut o diff with refle x RDW % 10.5 14.5 14.0 FINAL Luis Tucker Whole Blood [facility].52 [address] [address] [place] [address] CLIA#45D [id number] 11/07 CBC w/aut o diff with refle x Jordy % % 40.0 77.0 59.7 FINAL Luis Tucker Whole Blood [facility].52 [address] [address] [place] [address] CLIA#45D [id number] 11/07 CBC w/aut o diff with refle x Jordy # (ANC) 10^3/u L 1.5 6.5 2.73 FINAL Luis Tucker Whole Blood [facility].52 [address] [facility] [address] [place] [address] CLIA#45D [id number] 11/07 CBC w/aut o diff with refle x IG % % 0.0 0.5 0.4 FINAL Luis Tucker Whole Blood [facility].52 [address] [facility] [address] [place] [address] CLIA#45D [id number] 11/07 CBC w/aut o diff with refle x IG # 10^3/u L 0.0 0.03 0.02 FINAL Luis Tucker Whole Blood [facility].52 [address] [facility] [address] [place] [address] CLIA#45D [id number] 11/07 CBC w/aut o diff with refle x LY % % 15.0 41.0 19.0 FINAL Luis Tucker Whole Blood [facility].52 [address] [facility] [address] [place] [address] CLIA#45D [id number] 11/07 CBC w/aut o diff with refle x LY # 10^3/u L 1.2 3.4 0.87 Low FINAL Luis Tucker Whole Blood [facility].52 [address] [facility] [address] [place] [address] CLIA#45D [id number] 11/07 CBC w/aut o diff with refle x MO % % 3.0 11.0 9.8 FINAL Luis Tucker Whole Blood [facility].52 [address] [facility] [address] [place] [address] CLIA#45D [id number] 11/07 CBC w/aut o diff with refle x MO # 10^3/u L 0.0 1.0 0.45 FINAL Luis Tucker Whole Blood [facility].52 [address] [facility] [address] [place] [address] CLIA#45D [id number] 11/07 CBC w/aut o diff with refle x EO % % 0.0 3.0 9.6 High FINAL Luisbulmaro Tucker Whole Blood [facility].52 [address] [facility] [address] [place] [address] CLIA#45D [id number] 11/07 CBC w/aut o diff with refle x EO # 10^3/u L 0.0 0.3 0.44 High FINAL Luis Tucker Whole Blood [facility].52 [address] [facility] [address] [place] [address] CLIA#45D [id number] 11/07 CBC w/aut o diff with refle x BA % % 0.0 1.0 1.5 High FINAL Luis Tucker Whole Blood [facility].52 [address] [facility] [address] [place] [address] CLIA#45D [id number] 11/07 CBC w/aut o diff with refle x BA # 10^3/u L 0.0 0.2 0.07 FINAL Luisbulmaro Tucker Whole Blood [facility].52 [address] [facility] [address] [place] [address] CLIA#45D [id number] 11/07 CBC w/aut o diff with refle x NRBC, % % 0.0 0.2 0.0 FINAL Luis Brown Whole Blood [facility].52 [address] [facility] [address] [place] [address] CLIA#45D [id number] 11/07 CBC w/aut o diff with refle x NRBC, absol circle, x 10^3/ uL 10^3/u L 0.0 0.01 0.00 FINAL Luis [facility] Whole Blood [facility].52 36 [address] [facility] e [address] [place] [address] .[place] [address] CLIA#45D [id number] 11/07 SPEP with immun ofixa tion Total prote in g/dL 6.1 8.1 6.4 FINAL Luis Brown [facility] [place] [address] [address] [address] 11/07 SPEP with immun ofixa tion NOHEMI inter preta tion Results Below Normal pattern. No monoclona l proteins detected. FINAL Luis Brown [facility] [place] [address] [address] [address] 11/07 SPEP with immun ofixa tion Album in, SPE g/dL 3.8 4.8 3.4 Low FINAL [facility] [place] [address] [address] [address] 11/07 SPEP with immun ofixa tion Alpha -1 globu ashley g/dL 0.2 0.3 0.3 FINAL [facility] [place] [address] [address].[place] [address] 11/07 SPEP with immun ofixa tion Alpha -2 globu ashley g/dL 0.5 0.9 0.7 FINAL [facility] [place] [address] [address] [address] 11/07 SPEP with immun ofixa tion Beta- 1 g/dL 0.4 0.6 0.4 FINAL [facility] [place] [address] [address] [address] 11/07 SPEP with immun ofixa tion Beta- 2 g/dL 0.2 0.5 0.4 FINAL [facility] [place] [address] [address] [address] 11/07 SPEP with immun ofixa tion Gamma globu ashley g/dL 0.8 1.7 1.1 FINAL [facility] [place] [address] [address] [address] 11/07 SPEP with immun ofixa tion SPE inter preta tion Results Below Abnormal appearing gamma globulin peak, possibly monoclona l. If indicated ,recommen d immunotyp ing (Test Code: [id number]) for further evaluatio n. If the SPEPwas ordered with reflex, immunotyp ing will be resulted upon completio n. FINAL Luis [facility] [address] [address] [address] 11/07 CMP Chlor loly mmol/L 97.0 107.0 106 FINAL [facility].52 36 [facility] [address] [place] [address] CLIA#45D [id number] 11/07 CMP CO2 mmol/L 21.0 32.0 28.0 FINAL [facility].52 36 [facility] [address] [place] [address] CLIA#45D [id number] 11/07 CMP Gluco se mg/dL 74.0 106.0 74 FINAL [facility].[address] [facility] [facility] [address] [place] [address] CLIA#45D [id number] 11/07 CMP BUN mg/dL 7.0 18.0 35 High FINAL [facility].[address] [facility] [address] [place] [address] CLIA#45D [id number] 11/07 CMP Creat inine , mg/dL mg/dL 0.55 1.3 1.41 High FINAL [facility].52 [address] [facility] [address] [place] [address] CLIA#45D [id number] 11/07 CMP GFR estim ate mil/mi n/1.73 m2 38 Low Result based on the eGFR 2020 calculati on.60-89 mL/min/1. 73m^2 without kidney damage may be normal.60 -89 mL/min/1. 73m^2 for 3 months or more, along with kidney damage, may indicate early kidney disease.C alculatio n modified to the 2020 formula effective 01/16/23. FINAL [facility].[address] [facility] [address] [place] [address] CLIA#45D [id number] 11/07 CMP BUN/C reati nine ratio 6.0 25.0 24.8 FINAL [facility].52 36 [facility] [address] [place] [address] CLIA#45D [id number] 11/07 CMP Calci um mg/dL 8.5 10.1 9.7 FINAL [facility].52 36 [facility] [address] [place] [address] CLIA#45D [id number] 11/07 CMP Album in g/dL 3.4 5.0 3.1 Low FINAL [facility].52 36 [facility] [address] [place] [address] CLIA#45D [id number] 11/07 CMP Total prote in g/dL 6.4 8.2 7.3 FINAL [facility].[address] [facility] [address] [place] [address] [place] [address] CLIA#45D [id number] 11/07 CMP Globu ashley g/dL 2.2 4.2 4.2 FINAL [facility].[address] [facility] [address] [place] [address] CLIA#45D [id number] 11/07 CMP A/G ratio 0.8 2.0 0.7 Low FINAL [facility].52 36 [facility] [address] [place] [address] CLIA#45D [id number] 11/07 CMP Bilir ubin, total mg/dL 0.2 1.0 0.6 FINAL [facility].52 36 [facility] [address] [place] [address] CLIA#45D [id number] 11/07 CMP Alkal ine phosp hatas e U/L 46.0 116.0 100 FINAL [facility].52 [address] [facility] [address] [place] [address] CLIA#45D [id number] 11/07 CMP AST/S GOT U/L 15.0 37.0 26 FINAL [facility].52 [address] [facility] [address] [place] [address] CLIA#45D [id number] 11/07 CMP ALT/S GPT U/L 14.0 59.0 27 FINAL [facility].52 [address] [facility] [address] [place] [address] CLIA#45D [id number] 11/07 CMP Sodiu m mmol/L 136.0 145.0 143 FINAL [facility].52 [address] [facility] [address] [place] [address] CLIA#45D [id number] 11/07 CMP Potas sium mmol/L 3.5 5.1 4.3 FINAL [facility].52 [address] [facility] [address] [place] [address] CLIA#45D [id number] 11/07 [place] /robbins da with K/L ratio , free, serum (mg/d L) [place] light chain , free mg/L 3.3 19.4 73.5 High FINAL [facility]2 [address] [facility] [address] [address] 11/07 [place] /robbins da with K/L ratio , free, serum (mg/d L) [place] a light chain , free mg/L 5.7 26.3 35.8 High FINAL [facility]2 [address] [facility] [address] [address] 11/07 [place] /robbins da with K/L ratio , free, serum (mg/d L) Free K/L ratio Ratio 0.26 1.65 2.05 High (Note)Harjinder e kappa/tracy bda ratio in serum of normal individua ls is 0.26-1.65 .Excess productio n of free kappa or lambda chains can alter thisratio . Monoclona l free light chains are found in serum of patientsw ith multiple myeloma, Waldenstr om's macroglob ulinemia, mu-heavyc lon disease, primary amyloidos is, light chain depositio n disease,m onoclonal gammopath y of undetermi christina significa nce, andlympho prolifera tive disorders . Measureme nt of free light chainconc entration in serum is useful for diagnosis , prognosis , monitorin gdisease activity and following response to therapy of these disorders . FINAL [facility] [address] [address] [address] [address] Medications Date Name Route Dose Frequency Instructions Start Date End Date Status Dapagliflozin Oral daily active 02/22 methylprednisol one 125 MG Injection intravenously 125.0 mg Re-initiate treatment only upon physician approval. 2022 active 02/22 1 ML epinephrine 1 MG/ML Injection intramuscularly 0.3 mg once Re-initiate treatment only upon physician approval. 2022 active 02/22 famotidine 10 MG/ML Injectable Solution intravenously 20.0 mg Re-initiate treatment only upon physician approval. 2022 active 02/22 hydrocortisone 100 MG Injection intravenously 100.0 mg Re-initiate treatment only upon physician approval. 2022 active 02/16 hydrocortisone 100 MG Injection intravenously 100.0 mg Re-initiate treatment only upon physician approval. 2022 active 02/16 methylprednisol one 125 MG Injection intravenously 125.0 mg Re-initiate treatment only upon physician approval. 2022 active 02/16 1 ML epinephrine 1 MG/ML Injection intramuscularly 0.3 mg once Re-initiate treatment only upon physician approval. 2022 active 02/16 famotidine 10 MG/ML Injectable Solution intravenously 20.0 mg Re-initiate treatment only upon physician approval. 2022 active 02/04 famotidine 10 MG/ML Injectable Solution intravenously 20.0 mg Re-initiate treatment only upon physician approval. 2022 active 02/04 methylprednisol one 125 MG Injection intravenously 125.0 mg Re-initiate treatment only upon physician approval. 2022 active 02/04 1 ML epinephrine 1 MG/ML Injection intramuscularly 0.3 mg once Re-initiate treatment only upon physician approval. 2022 active 02/04 hydrocortisone 100 MG Injection intravenously 100.0 mg Re-initiate treatment only upon physician approval. 2022 active 01/28 hydrocortisone 100 MG Injection intravenously 100.0 mg Re-initiate treatment only upon physician approval. 2022 active 01/28 1 ML epinephrine 1 MG/ML Injection intramuscularly 0.3 mg once Re-initiate treatment only upon physician approval. 2022 active 01/28 famotidine 10 MG/ML Injectable Solution intravenously 20.0 mg Re-initiate treatment only upon physician approval. 2022 active 01/28 methylprednisol one 125 MG Injection intravenously 125.0 mg Re-initiate treatment only upon physician approval. 2022 active 01/21 famotidine 10 MG/ML Injectable Solution intravenously 20.0 mg Re-initiate treatment only upon physician approval. 2022 active 01/21 1 ML epinephrine 1 MG/ML Injection intramuscularly 0.3 mg once Re-initiate treatment only upon physician approval. 2022 active 01/21 hydrocortisone 100 MG Injection intravenously 100.0 mg Re-initiate treatment only upon physician approval. 2022 active 01/21 methylprednisol one 125 MG Injection intravenously 125.0 mg Re-initiate treatment only upon physician approval. 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 Proteinuria (finding) Active Anemia (disorder) Active Nutritional anemia (disorder) Active Iron deficiency anemia (disorder) Active Iron deficiency anemia (disorder) Active Cannot tolerate oral iron Active Vital Signs Date Type Value 06/24/2021 Body Temperature 98.10 06/24/2021 Heart Beat 100.00 06/24/2021 Respiratory Rate 16.00 06/24/2021 Oxygen Saturation 94.00 06/24/2021 BSA 1.79 06/24/2021 Pain Scale 0.00 06/24/2021 Weight 172.20 06/24/2021 Height 62.00 06/24/2021 BMI 31.50 06/24/2021 Intravascular Systolic 110 06/24/2021 Intravascular Diastolic 58 12/24/2021 Body Temperature 97.80 12/24/2021 Heart Beat 85.00 12/24/2021 Respiratory Rate 14.00 12/24/2021 Oxygen Saturation 97.00 12/24/2021 BSA 1.79 12/24/2021 Pain Scale 0.00 12/24/2021 Weight 171.60 12/24/2021 Height 62.00 12/24/2021 BMI 31.39 12/24/2021 Intravascular Systolic 123 12/24/2021 Intravascular Diastolic 59 12/30/2022 Pain Scale 0.00 12/30/2022 Intravascular Systolic 116 12/30/2022 Intravascular Diastolic 61 12/30/2022 Oxygen Saturation 99.00 12/30/2022 Respiratory Rate 16.00 12/30/2022 Heart Beat 96.00 12/30/2022 BSA 1.80 12/30/2022 Weight 173.60 12/30/2022 Height 62.00 12/30/2022 Body Temperature 98.00 12/30/2022 BMI 31.75 01/21/2023 Height 62.00 01/21/2023 Intravascular Systolic 114 01/21/2023 Intravascular Diastolic 55 01/21/2023 Oxygen Saturation 99.00 01/21/2023 Respiratory Rate 16.00 01/21/2023 Body Temperature 97.20 01/21/2023 Heart Beat 99.00 01/28/2023 Heart Beat 92.00 01/28/2023 Respiratory Rate 18.00 01/28/2023 Oxygen Saturation 99.00 01/28/2023 Intravascular Systolic 119 01/28/2023 Intravascular Diastolic 63 01/28/2023 Height 62.00 01/28/2023 Body Temperature 97.20 02/04/2023 BSA 1.82 02/04/2023 BMI 32.63 02/04/2023 Height 62.00 02/04/2023 Weight 178.40 02/04/2023 Intravascular Systolic 117 02/04/2023 Intravascular Diastolic 58 02/04/2023 Respiratory Rate 18.00 02/04/2023 Heart Beat 97.00 02/04/2023 Body Temperature 97.20 02/04/2023 Oxygen Saturation 100.00 02/16/2023 BSA 1.81 02/16/2023 BMI 31.97 02/16/2023 Height 62.00 02/16/2023 Weight 174.80 02/16/2023 Body Temperature 97.30 02/16/2023 Oxygen Saturation 99.00 02/16/2023 Respiratory Rate 16.00 02/16/2023 Heart Beat 100.00 02/16/2023 Intravascular Systolic 114 02/16/2023 Intravascular Diastolic 60 02/22/2023 Body Temperature 97.70 02/22/2023 Heart Beat 109.00 02/22/2023 Respiratory Rate 16.00 02/22/2023 Oxygen Saturation 95.00 02/22/2023 Intravascular Systolic 124 02/22/2023 Intravascular Diastolic 60 02/22/2023 Weight 176.00 02/22/2023 Height 62.00 02/22/2023 BMI 32.19 02/22/2023 BSA 1.81 04/08/2023 Body Temperature 98.10 04/08/2023 Heart Beat 95.00 04/08/2023 Respiratory Rate 16.00 04/08/2023 Oxygen Saturation 97.00 04/08/2023 Intravascular Systolic 123 04/08/2023 Intravascular Diastolic 59 04/08/2023 Pain Scale 0.00 04/08/2023 Weight 185.40 04/08/2023 Height 62.00 04/08/2023 BMI 33.91 04/08/2023 BSA 1.85 07/07/2023 Body Temperature 97.70 07/07/2023 Heart Beat 94.00 07/07/2023 Respiratory Rate 16.00 07/07/2023 Oxygen Saturation 95.00 07/07/2023 BSA 1.83 07/07/2023 Pain Scale 3.00 07/07/2023 Weight 180.00 07/07/2023 Height 62.00 07/07/2023 BMI 32.92 07/07/2023 Intravascular Systolic 124 07/07/2023 Intravascular Diastolic 59 10/27/2023 BSA 1.67 10/27/2023 BMI 26.70 10/27/2023 Height 62.00 10/27/2023 Weight 146.00 10/27/2023 Pain Scale 0.00 10/27/2023 Intravascular Systolic 97 10/27/2023 Intravascular Diastolic 59 10/27/2023 Oxygen Saturation 94.00 10/27/2023 Respiratory Rate 18.00 10/27/2023 Body Temperature 97.70 10/27/2023 Heart Beat 120.00 04/26/2024 Heart Beat 90.00 04/26/2024 Respiratory Rate 16.00 04/26/2024 Oxygen Saturation 96.00 04/26/2024 Intravascular Systolic 97 04/26/2024 Intravascular Diastolic 60 04/26/2024 Body Temperature 97.50 04/26/2024 Weight 125.20 04/26/2024 Height 62.00 04/26/2024 BMI 22.90 04/26/2024 BSA 1.57 04/26/2024 Pain Scale 0.00 11/07/2024 BSA 1.62 11/07/2024 BMI 24.69 11/07/2024 Height 62.00 11/07/2024 Weight 135.00 11/07/2024 Pain Scale 0.00 11/07/2024 Intravascular Systolic 92 11/07/2024 Intravascular Diastolic 56 11/07/2024 Oxygen Saturation 95.00 11/07/2024 Respiratory Rate 16.00 11/07/2024 Body Temperature 98.10 11/07/2024 Heart Beat 91.00 Notes Section * Nurse Note for: 22-FEB-23 [facility] Nurse Note Print Location: Unknown Date/Time Printed: 01/28/2025 18:34 ([facility]) Patient: JAMESON DOTSON Sex: Female : 1945 Date of Service: 02/22/2023 Allergies : Sulfa (Sulfonamide Antibiotics) Vital Signs : Time: 12:09. Weight: 176 lb (79.83 kg). Height: 62 in (157.48 cm). BMI: 32.19 (kg/m2) . BSA: 1.81 (m2) . Temperature: 97.7 F (36.50 C). Pulse: 109 (/min) . Respirations: 16 (/min) . Blood pressure: 124/60 (mm Hg) right arm Regular. O2 Saturation: 95 (%) at rest. Entered by Radha Del Valle CMA 2:10 Incident To Details : Incident to physician is present and immediately available to furnish assistance and provide supervision throughout the treatment. Entered By Ceci Torres RN, Sr-OCN on 15:58 Patient Assessment : Positive results Assessment : Alert, oriented with appropriate behavior. Negative results Assessment : Denies Nausea , Vomiting , Diarrhea , Constipation . Entered By Ceci Ohara on 15:59 IV Access/Lab Draw : IV Access-Peripheral - New Start, Needle Type-Iv Cath, Needle Size-24 Gauge, Access Site-Right Hand, Flush-10ml NS, Site Assess List-Blood Return,No Redness,No Swelling,No Tenderness,No Bruising, Site Care Checklist-Aseptic Technique, Lab Drawn-No, Access Attempts-4 time(s),R Arm,L Arm, Comments-EMx2 AWx2 (success) Entered By Ceci Ohara on 15:59 IV De-Access : Line Flushed-10ml NS, Catheter-Dc'd, Site Care-Site Dressing Applied,IV Infusion Completed,Therapy Completed Without Adverse Event, Site Assess-Line Intact,No Redness,No Swelling,No Tenderness,No Bruising, Comments-blood return obtained Entered By Ceci Ohara on 15:59 Discharge Note : Comments-Therapy completed without adverse event, Catheter removed intact, Discharged from clinic, Stable, Plan for next patient visit confirmed, Patient instructed to call office with any questions or problems, Accompanied By-Self, Discharge-Ambulatory, with assistive device Entered By Ceic Torres RN, Sr-OCN on 16:00 Medication Administration : Incident to: Rupal Pak MD Iron Sucrose (Venofer) weekly Medications Iron Sucrose IV, 100 mg iron/5 mL solution, 300 mg intravenously Piggyback once, Admin over: 90 minutes to 90 minutes, Instructions: No test dose indicated. Observe patient for at least 30 minutes after dose., Allow Substitution GIVEN: 300 mg Pharmacy plan: Dose Form Description: 100 mg iron/5 mL solution Dispense/Waste: 300/0 mg Amount in mL: 15 Pharmacy dispense: [facility]: [id number] Dispense/Waste: 300/0 mg Given Dose/Discard: 300/0 mg Start Time: 13:09, Entered By: Ceci Torres RN, Sr-KELY, Stop Time: 14:39, Entered By: Ceci Torres RN, Sr-KELY Admix Fluid: 0.9 % sodium chloride, Admix Fluid Volume: 250mL, Total Volume: 265mL * Nurse Note for: 16-FEB-23 [facility] Nurse Note Print Location: Unknown Date/Time Printed: 01/28/2025 18:34 ([facility]) Patient: JAMESON DOTSON Sex: Female : 1945 Date of Service: 02/16/2023 Allergies : Sulfa (Sulfonamide Antibiotics) Vital Signs : Time: 08:33. Weight: 174.8 lb (79.29 kg). Height: 62 in (157.48 cm). BMI: 31.97 (kg/m2) . BSA: 1.81(m2) . Temperature: 97.3 F (36.28 C). Pulse: 100 (/min) . Respirations: 16 (/min) . Blood pressure:114/60 (mm Hg). O2 Saturation: 99 (%) at rest. Entered by Radha Del Valle CMA 02/16/2023 08:34 Incident To Details : Incident to physician is present and immediately available to furnish assistance and provide supervision throughout the treatment. Entered By Ceci Torres RN, Sr-OCN on 08:36 Patient Assessment : Positive results Assessment : Alert, oriented with appropriate behavior. Negative results Assessment : Denies Nausea , Vomiting , Diarrhea , Constipation . Entered By Ceci Ohara on 08:37 IV Access/Lab Draw : IV Access-Peripheral - New Start, Needle Type-Iv Cath, Needle Size-24 Gauge, Access Site-Right Arm,Flush-10ml NS, Site Assess List-Blood Return,No Redness,No Swelling,No Tenderness,No Bruising, SiteCare Checklist-Aseptic Technique, Lab Drawn-No, Access Attempts-1 time(s), Entered By Ceci Ohara on :37 IV De-Access : Line Flushed-10ml NS, Catheter-Dc'd, Site Care-Site Dressing Applied,IV Infusion Completed,Therapy Completed Without Adverse Event, Site Assess-Line Intact,No Redness,No Swelling,No Tenderness,No Bruising, Comments-blood return obtained Entered By Ceci Ohara on 10:25 Discharge Note : Comments-Therapy completed without adverse event, Catheter removed intact, Discharged from clinic, Stable, Plan for next patient visit confirmed, Patient instructed to call office with any questions or problems, Accompanied By-Self, Discharge-Ambulatory, with assistive device Entered By Ceci Ohara on 10:26 Medication Administration : Incident to: Teddy Gilman MD Iron Sucrose (Venofer) weekly Medications Iron Sucrose IV, 100 mg iron/5 mL solution, 300 mg intravenously Piggyback once, Admin over: 90 minutes to 90 minutes, Instructions: No test dose indicated. Observe patient for at least 30 minutes after dose., Allow Substitution GIVEN: 300 mg Pharmacy plan: Dose Form Description: 100 mg iron/5 mL solution Dispense/Waste: 300/0 mg Amount in mL: 15 Pharmacy dispense: [facility]: [id number] Dispense/Waste: 300/0 mg Given Dose/Discard: 300/0 mg Start Time: 08:35, Entered By: Ceci Ohara, Stop Time: 10:05, Entered By: Ceci Ohara Admix Fluid: 0.9 % sodium chloride, Admix Fluid Volume: 250mL, Total Volume: 265mL * Nurse Note for: 04-FEB-23 [facility] Nurse Note Print Location: Unknown Date/Time Printed: 01/28/2025 18:34 ([facility]) Patient: JAMESON DOTSON Sex: Female : 1945 Date of Service: 02/04/2023 Allergies : Sulfa (Sulfonamide Antibiotics) Vital Signs : Time: 16:24. Weight: 178.4 lb (80.92 kg). Height: 62 in (157.48 cm). BMI: 32.63 (kg/m2) . BSA: 1.82(m2) . Temperature: 97.2 F (36.22 C). Pulse: 97 (/min) . Respirations: 18 (/min) . Blood pressure: 117/58 (mm Hg). O2 Saturation: 100 (%) . Entered by Norah Singer LPN 02/04/2023 16:24 Incident To Details : Incident to physician is present and immediately available to furnish assistance and provide supervision throughout the treatment. Entered By Norah Singer LPN on 16:15 Patient Assessment : IV Access/Lab Draw : IV Access-Peripheral - New Start, Needle Type-Butterfly, Needle Size-24 Gauge, Needle Length-3/4 inch, Access Site-Right Arm, Flush-10ml NS, Site Assess List- Blood Return,No Redness,No Swelling,No Tenderness,No Bruising, Site Care Checklist-Aseptic Technique, Access Attempts-1 time(s), Entered By Norah Singer LPN on 16:16 IV De-Access : IV Access Method-Peripheral - New Start, IV Access Type-Butterfly, Line Flushed- 10ml NS, Catheter-Dc'd, Site Care-Site Dressing Applied,IV Infusion Completed,Blood Return Noted During Administration,Therapy Completed Without Adverse Event, Site Assess-No Redness,No Swelling,No Tenderness,No Bruising, Entered By Norah Singer LPN on 16:16 Discharge Note : Comments-Therapy completed without adverse event, Catheter removed intact, Dressing intact, Discharged from clinic, Stable, No new complaints, No Weakness, Plan for next patient visit confirmed, Patient instructed to call office with any questions or problems, Accompanied By-Self, Discharge-Ambulatory Entered By Norah Singer LPN on 16:17 Medication Administration : Incident to: Momo Bernal MD Iron Sucrose (Venofer) weekly Medications Iron Sucrose IV, 100 mg iron/5 mL solution, 300 mg intravenously Piggyback once, Admin over: 90 minutes to 90 minutes, Instructions: No test dose indicated. Observe patient for at least 30 minutes after dose., Allow Substitution GIVEN: 300 mg Pharmacy plan: Dose Form Description: 100 mg iron/5 mL solution Dispense/Waste: 300/0 mg Amount in mL: 15 Pharmacy dispense: [facility]: [id number] Dispense/Waste: 300/0 mg Given Dose/Discard: 300/0 mg Start Time: 14:00, Entered By: Norah Sinegr LPN, Stop Time: 15:30, Entered By: Norah Singer LPN Admix Fluid: 0.9 % sodium chloride, Admix Fluid Volume: 250mL, Total Volume: 265mL * Nurse Note for: 28-JAN-23 [facility] Nurse Note Print Location: Unknown Date/Time Printed: 01/28/2025 18:34 ([facility]) Patient: JAMESON DOTSON Sex: Female : 1945 Date of Service: 01/28/2023 Allergies : Sulfa (Sulfonamide Antibiotics) Vital Signs : Time: 16:42. Height: 62 in (157.48 cm). Temperature: 97.2 F (36.22 C). Pulse: 92 (/min) . Respirations: 18 (/min) . Blood pressure: 119/63 (mm Hg). O2 Saturation: 99 (%) . Entered by Norah Singer LPN 01/28/2023 16:42 Incident To Details : Incident to physician is present and immediately available to furnish assistance and provide supervision throughout the treatment. Entered By Norah Singer LPN on 16:30 Patient Assessment : IV Access/Lab Draw : IV Access-Peripheral - New Start, Needle Type-Butterfly, Needle Size-24 Gauge, Needle Length-3/4 inch, Access Site-Right Arm, Flush-10ml NS, Site Assess List- Blood Return,No Redness,No Swelling,No Tenderness,No Bruising, Site Care Checklist-Aseptic Technique, Access Attempts-1 time(s), Entered By Norah Singer LPN on 16:30 IV De-Access : IV Access Method-Peripheral - New Start, IV Access Type-Butterfly, Line Flushed- 10ml NS, Catheter-Dc'd, Site Care-Site Dressing Applied,IV Infusion Completed,Blood Return Noted During Administration,Therapy Completed Without Adverse Event, Site Assess-No Redness,No Swelling,No Tenderness,No Bruising, Entered By Norah Singre LPN on 16:30 Discharge Note : Comments-Therapy completed without adverse event, Catheter removed intact, Dressing intact, Discharged from clinic, Stable, No new complaints, No Weakness, Plan for next patient visit confirmed, Patient instructed to call office with any questions or problems, Accompanied By-Self, Discharge-Ambulatory Entered By Norah Singer LPN on 16:31 Medication Administration : Incident to: Momo Bernal MD Iron Sucrose (Venofer) weekly Medications Iron Sucrose IV, 100 mg iron/5 mL solution, 300 mg intravenously Piggyback once, Admin over: 90 minutes to 90 minutes, Instructions: No test dose indicated. Observe patient for at least 30 minutes after dose., Allow Substitution GIVEN: 300 mg Pharmacy plan: Dose Form Description: 100 mg iron/5 mL solution Dispense/Waste: 300/0 mg Amount in mL: 15 Pharmacy dispense: [facility]: [id number] Dispense/Waste: 300/0 mg Given Dose/Discard: 300/0 mg Start Time: 13:39, Entered By: Norah Singer LPN, Stop Time: 15:09, Entered By: Norah Singer LPN Admix Fluid: 0.9 % sodium chloride, Admix Fluid Volume: 250mL, Total Volume: 265mL * Nurse Note for: 21-JAN-23 [facility] Nurse Note Print Location: Unknown Date/Time Printed: 01/28/2025 18:34 ([facility]) Patient: JAMESON DOTSON Sex: Female : 1945 Date of Service: 01/21/2023 Allergies : Sulfa (Sulfonamide Antibiotics) Vital Signs : Time: 17:12. Height: 62 in (157.48 cm). Temperature: 97.2 F (36.22 C). Pulse: 99 (/min) . Respirations: 16 (/min) . Blood pressure: 114/55 (mm Hg). O2 Saturation: 99 (%) . Entered by Norah Singer LPN 01/21/2023 17:12 Incident To Details : Incident to physician is present and immediately available to furnish assistance and provide supervision throughout the treatment. Entered By Norah Singer LPN on 17:10 Patient Assessment : IV Access/Lab Draw : IV Access-Peripheral - New Start, Needle Type-Butterfly, Needle Size-24 Gauge, Needle Length-3/4 inch, Access Site-Left Hand, Flush-10ml NS, Site Assess List- Blood Return,No Redness,No Swelling,No Tenderness,No Bruising, Site Care Checklist-Aseptic Technique, Access Attempts-1 time(s), Entered By Norah Singer LPN on 17:11 IV De-Access : IV Access Method-Peripheral - New Start, IV Access Type-Butterfly, Line Flushed- 10ml NS, Catheter-Dc'd, Site Care-Site Dressing Applied,IV Infusion Completed,Blood Return Noted During Administration,Therapy Completed Without Adverse Event, Site Assess-No Redness,No Swelling,No Tenderness,No Bruising, Entered By Norah Singer LPN on 17:11 Discharge Note : Comments-Therapy completed without adverse event, Catheter removed intact, Dressing intact, Discharged from clinic, Stable, No new complaints, No Weakness, Plan for next patient visit confirmed, Patient instructed to call office with any questions or problems, Accompanied By-Self, Discharge-Ambulatory Entered By Norah Singer LPN on 17:11 Medication Administration : Incident to: Momo Bernal MD Iron Sucrose (Venofer) weekly Medications Iron Sucrose IV, 100 mg iron/5 mL solution, 300 mg intravenously Piggyback once, Admin over: 90 minutes to 90 minutes, Instructions: No test dose indicated. Observe patient for at least 30 minutes after dose., Allow Substitution GIVEN: 300 mg Pharmacy plan: Dose Form Description: 100 mg iron/5 mL solution Dispense/Waste: 300/0 mg Amount in mL: 15 Pharmacy dispense: [facility]: [id number] Dispense/Waste: 300/0 mg Given Dose/Discard: 300/0 mg Start Time: 12:50, Entered By: Norah Singer LPN, Stop Time: 14:20, Entered By: Norah Singer LPN Admix Fluid: 0.9 % sodium chloride, Admix Fluid Volume: 250mL, Total Volume: 265mL * Nurse Note for: 30-DEC-22 [facility] Nurse Note Print Location: Unknown Date/Time Printed: 01/28/2025 18:34 ([facility]) Patient: JAMESON DOTSON Sex: Female : 1945 Date of Service: 12/30/2022 Allergies : Sulfa (Sulfonamide Antibiotics) Vital Signs : Time: 09:29. Weight: 173.6 lb (78.74 kg). Height: 62 in (157.48 cm). BMI: 31.75 (kg/m2) . BSA: 1.8 (m2) . Temperature: 98 F (36.67 C) forehead. Pulse: 96 (/min) sitting. Respirations: 16 (/min) . Blood pressure: 116/61 (mm Hg) left arm Regular. Pain Scale: 0 R Hip. O2 Saturation: 99 (%) at rest. Entered by Tyrone Simeon CMA 12/30/2022 09:30 Patient Assessment : Positive results Assessment : Alert, oriented with appropriate behavior. Negative results Assessment : Labs Verified: No, Gait Changes. Denies Neuropathy , Pain -0-No pain, Fatigue , Anxiety/Depression , Fever, Chills or Night Sweats ,Signs of Infection , Skin Changes , Dizziness , Headaches , Nausea , Breathing Changes , Cough , Mouth Sores/Stomatitis/Mucositis , Changes in Appetite , Vomiting , Diarrhea , Constipation , Urinary Changes , Bleeding . Entered By Tyrone Simeon CMA on 09:30 * Nurse Note for: 24-DEC-21 [facility] Nurse Note Print Location: Unknown Date/Time Printed: 01/28/2025 18:34 ([facility]) Patient: JAMESON DOTSON Sex: Female : 1945 Date of Service: 12/24/2021 Allergies : Sulfa (Sulfonamide Antibiotics) Vital Signs : Time: 10:49. Pain Scale: 0. Entered by Tyrone Simeon CMA 12/24/2021 10:51 Time: 10:49. Weight: 171.6 lb (77.84 kg). Height: 62 in (157.48 cm). BMI: 31.39 (kg/m2) . BSA: 1.79(m2) . Temperature: 97.8 F (36.56 C) forehead. Pulse: 85 (/min) sitting. Respirations: 14 (/min) . Blood pressure: 123/59 (mm Hg) right arm Regular. Pain Scale: 3. O2 Saturation: 97 (%) at rest. Entered by Tyrone Simeon CMA 12/24/2021 10:50 Patient Assessment : Negative results Assessment : Labs Verified: No, Alert, oriented with appropriate behavior, Gait Changes. Denies Neuropathy , Pain -0-No pain, Fatigue , Anxiety/Depression , Fever, Chills or Night Sweats ,Signs of Infection , Skin Changes , Dizziness , Headaches , Nausea , Breathing Changes , Cough , Mouth Sores/Stomatitis/Mucositis , Changes in Appetite , Vomiting , Diarrhea , Constipation , Urinary Changes , Bleeding . Entered By Tyrone Siemon CMA on 10:51 * Nurse Note for: 24-JUN-21 [facility] Nurse Note Print Location: Unknown Date/Time Printed: 01/28/2025 18:34 ([facility]) Patient: JAMESON DOTSON Sex: Female : 1945 Date of Service: 06/24/2021 Allergies : Sulfa (Sulfonamide Antibiotics) Vital Signs : Time: 02:00. Weight: 172.2 lb (78.11 kg). Height: 62 in (157.48 cm). BMI: 31.5 (kg/m2) . BSA: 1.79 (m2) . Temperature: 98.1 F (36.72 C) forehead. Pulse: 100 (/min) . Respirations: 16 (/min) . Blood pressure: 110/58 (mm Hg) right arm Regular. Pain Scale: 0. O2 Saturation: 94 (%) at rest. Entered by Soumya BERGER 06/24/2021 10:44 Patient Assessment : Negative results Assessment : Denies Pain -0-No pain, Fatigue , Dizziness , Headaches , Nausea , Vomiting , Diarrhea . Entered By Soumya BERGER on 10:43
--- OUTSIDE RECORDS SUMMARY | 2025-01-28 18:34 | XMS_ITS ---
Author Name Interface, [id number] lity Address [place] [address] Organization [facility] Address [place] [address] Care Team Providers Care Hemotherapist Name Role Phone Tayler Jacobs Unavailable Unavailable Allergies and Adverse Reactions Medication/Group Name Reaction Severity Date Sulfa (Sulfonamide Antibiotics) 11/07/2024 Plan Date Type Value 05/16/2025 APPOINTMENT LAB OV 6M 05/16/2025 APPOINTMENT LAB OV 6M 11/07/2024 APPOINTMENT LAB OV 11/07/2024 APPOINTMENT LAB OV 11/07/2024 LABORDER SPEP with immuno fixation 11/07/2024 LABORDER CBC w/auto diff with reflex 11/07/2024 LABORDER [place]/lambda wit h K/L ratio, free, serum (mg/dL) 11/07/2024 LABORDER CMP 11/07/2024 LABORDER Iron, TIBC, Ferr itin panel 05/16/2025 LABORDER CBC w/auto diff with reflex 05/16/2025 LABORDER SPEP with immuno fixation 05/16/2025 LABORDER CMP 05/16/2025 LABORDER [place]/lambda wit h K/L ratio, free, serum (mg/dL) 05/16/2025 LABORDER Iron, TIBC, Ferr itin panel Reason for Visit LAB OV Encounters Date Name 11/07/2024 Anemia (disorder) 11/07/2024 Cannot tolerate oral iron 11/07/2024 Iron deficiency anem ia (disorder) 11/07/2024 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) 11/07/2024 Nutritional anemia ( disorder) Diagnostic Results Date Type Test Units Lower Limit Upper Limit Result Flag Comments Status Ordered By Specimen Source Lab Address 11/07 [place] /rodriguez da with K/L ratio , free, serum (mg/d L) [place] light [facility] , free mg/L 3.3 19.4 73.5 High FINAL [facility] [place] [address] 12.[place] [address] 11/07 [place] /rodriguez da with K/L ratio , free, serum (mg/d L) [place] [facility] light chain , free mg/L 5.7 26.3 35.8 High FINAL [facility] [place] [address] 12.[place] [address] 11/07 [place] /rodriguez da with K/L ratio , free, serum [...] to therapy of these disorders . FINAL [facility] [place] [address] 12.[place] [address] 11/07 SPEP with immun ofixa tion Total prote in g/dL 6.1 8.1 6.4 FINAL [facility] [place] [address] 12.[place] [address] 11/07 SPEP with immun ofixa tion NOHEMI inter preta tion Results Below Normal pattern. No monoclona l proteins detected. FINAL [facility] [place] [address] 12[place] [address] 11/07 SPEP with immun ofixa tion Album in, SPE g/dL 3.8 4.8 3.4 Low FINAL [facility] [address] [address] [address] 12[place] [address] 11/07 SPEP with immun ofixa tion Alpha -1 globu ashley g/dL 0.2 0.3 0.3 FINAL [facility] [address] [address] [address] 12[place] [address] 11/07 SPEP with immun ofixa tion Alpha -2 globu ashley g/dL 0.5 0.9 0.7 FINAL [facility] [address] [address] [address] 12[place] [address] 11/07 SPEP with immun ofixa tion Beta- 1 g/dL 0.4 0.6 0.4 FINAL [facility] [address] [address] [address] 12[place] [address] 11/07 SPEP with immun ofixa tion Beta- 2 g/dL 0.2 0.5 0.4 FINAL [facility] [place] [address] Building 12.[place] [address] 11/07 SPEP with immun ofixa tion Gamma globu ashley g/dL 0.8 1.7 1.1 [facility] [place] [address] Building 12[place] [address] 11/07 SPEP with immun ofixa tion SPE inter preta tion Results Below Abnormal appearing gamma globulin peak, possibly monoclona l. If indicated ,recommen d immunotyp ing (Test Code: [id number]) for further evaluatio n. If the SPEPwas ordered with reflex, immunotyp ing will be resulted upon completio n. FINAL [facility] [address] [address] [address] 12[place] [address] 11/07 CBC w/aut o diff with refle x WBC 10^3/u L 4.8 10.8 4.6 Low FINAL [facility].[address] [facility] zaid Nelson.[address] [place] [address] CLIA#45D [id number] 11/07 CBC w/aut o diff with refle x RBC 10^6/u L 4.2 5.4 4.23 FINAL [facility] [place] [address] CLIA#45D [id number] 11/07 CBC w/aut o diff with refle x HGB g/dL 12.0 16.0 12.4 FINAL [facility].[address] [facility] ty e [address] [place] [address] CLIA#45D [id number] 11/07 CBC w/aut o diff with refle x HCT % 37.0 47.0 40.8 FINAL [facility].[address] [facility] it e [address] [place] [address] CLIA#45D [id number] 11/07 CBC w/aut o diff with refle x MCV fL 81.0 99.0 96.5 FINAL [facility].[address] [facility] it e [address] [place] [address] CLIA#45D [id number] 11/07 CBC w/aut o diff with refle x MCH pg 27.0 31.0 29.3 FINAL [facility].[address] [facility] it e [address] [place] [address] CLIA#45D [id number] 11/07 CBC w/aut o diff with refle x MCHC g/dL 33.0 37.0 30.4 Low FINAL [facility].[address] [facility] ty it e [address] [place] [address] CLIA#45D [id number] 11/07 CBC w/aut o diff with refle x PLT 10^3/u L 130.0 400.0 216 FINAL [facility].[address] [facility] ty it e [address] [place] [address] CLIA#45D [id number] 11/07 CBC w/aut o diff with refle x MPV fL 9.4 12.3 10.3 FINAL [facility] [place] [address] CLIA#45D [id number] 11/07 CBC w/aut o diff with refle x RDW % 10.5 14.5 14.0 FINAL [facility].[address] [place] [address] CLIA#45D [id number] 11/07 CBC w/aut o diff with refle x Jordy % % 40.0 77.0 59.7 FINAL [facility] [place] [address] CLIA#45D [id number] 11/07 CBC w/aut o diff with refle x Jordy # (ANC) 10^3/u L 1.5 6.5 2.73 FINAL [facility] [place] [address] CLIA#45D [id number] 11/07 CBC w/aut o diff with refle x IG % % 0.0 0.5 0.4 FINAL [facility] [place] [address] CLIA#45D [id number] 11/07 CBC w/aut o diff with refle x IG # 10^3/u L 0.0 0.03 0.02 FINAL [facility] [place] [address] CLIA#45D [id number] 11/07 CBC w/aut o diff with refle x LY % % 15.0 41.0 19.0 FINAL [facility] [place] [address] CLIA#45D [id number] 11/07 CBC w/aut o diff with refle x LY # 10^3/u L 1.2 3.4 0.87 Low FINAL [facility] [place] [address] CLIA#45D [id number] 11/07 CBC w/aut o diff with refle x MO % % 3.0 11.0 9.8 FINAL [facility] [place] [address] CLIA#45D [id number] 11/07 CBC w/aut o diff with refle x MO # 10^3/u L 0.0 1.0 0.45 FINAL [facility] [facility] ty e [address] [place] [address] CLIA#45D [id number] 11/07 CBC w/aut o diff with refle x EO % % 0.0 3.0 9.6 High FINAL [facility] [facility] [address] [place] [address] CLIA#45D [id number] 11/07 CBC w/aut o diff with refle x EO # 10^3/u L 0.0 0.3 0.44 High FINAL [facility] [facility] [address] [place] [address] CLIA#45D [id number] 11/07 CBC w/aut o diff with refle x BA % % 0.0 1.0 1.5 High FINAL [facility].[address] [facility] [address] [place] [address] CLIA#45D [id number] 11/07 CBC w/aut o diff with refle x BA # 10^3/u L 0.0 0.2 0.07 FINAL [facility].[address] [facility] [address] [place] [address] CLIA#45D [id number] 11/07 CBC w/aut o diff with refle x NRBC, % % 0.0 0.2 0.0 FINAL [facility].[address] [facility] [address] [place] [address] CLIA#45D [id number] 11/07 CBC w/aut o diff with refle x NRBC, absol jose, x 10^3/ uL 10^3/u L 0.0 0.01 0.00 FINAL [facility].[address] [facility] [address] [place] [address] CLIA#45D [id number] 11/07 TIBC and perce nt sat w/ iron panel Iron ug/dL 50.0 170.0 60.0 FINAL [facility] [address] [place] [address] CLIA#45D [id number] 11/07 TIBC and perce nt sat w/ iron panel TIBC ug/dL 250.0 450.0 311.0 FINAL [facility].52 [facility] [address] [place] [address] CLIA#45D [id number] 11/07 TIBC and perce nt sat w/ iron panel Iron, % satur ation % 15.0 50.0 19 FINAL [facility].52 [address] [facility] [address] [place] [address] CLIA#45D [id number] 11/07 CMP Chlor loly mmol/L 97.0 107.0 106 FINAL [facility] [address] [place] [address] CLIA#45D [id number] 11/07 CMP CO2 mmol/L 21.0 32.0 28.0 FINAL [facility].52 [facility] [address] [place] [address] CLIA#45D [id number] 11/07 CMP Gluco se mg/dL 74.0 106.0 74 FINAL [facility].[address] [facility] [address] [address] [place] [address] CLIA#45D [id number] 11/07 CMP BUN mg/dL 7.0 18.0 35 High FINAL [facility].[address] [facility] [address] [address] [place] [address] CLIA#45D [id number] 11/07 CMP Creat inine , mg/dL mg/dL 0.55 1.3 1.41 High FINAL [facility].52 [address] [facility] [address] [place] [address] CLIA#45D [id number] 11/07 CMP GFR estim ate mil/mi n/1.73 m2 38 Low Result based on the eGFR 2020 calculati on.60-89 mL/min/1. 73m^2 without kidney damage may be normal.60 -89 mL/min/1. 73m^2 for 3 months or more, along with kidney damage, may indicate early kidney disease.C alculatio n modified to the 2020 formula effective 01/16/23. FINAL [facility].[address] [facility] [address] [address] [place] [address] CLIA#45D [id number] 11/07 CMP BUN/C reati nine ratio 6.0 25.0 24.8 FINAL [facility].[address] [facility] [address] [address] [place] [address] CLIA#45D [id number] 11/07 CMP Calci um mg/dL 8.5 10.1 9.7 FINAL [facility].52 [address] [facility] [address] [place] [address] CLIA#45D [id number] 11/07 CMP Album in g/dL 3.4 5.0 3.1 Low FINAL [facility].[address] [facility] [address] [place] [address] CLIA#45D [id number] 11/07 CMP Total prote in g/dL 6.4 8.2 7.3 FINAL [facility].52 [address] [facility] [address] [place] [address] CLIA#45D [id number] 11/07 CMP Globu ashley g/dL 2.2 4.2 4.2 FINAL [facility].52 [address] [facility] [address] [place] [address] CLIA#45D [id number] 11/07 CMP A/G ratio 0.8 2.0 0.7 Low FINAL [facility].52 [address] [facility] [address] [place] [address] CLIA#45D [id number] 11/07 CMP Bilir ubin, total mg/dL 0.2 1.0 0.6 FINAL [facility].52 [address] [facility] [address] [place] [address] CLIA#45D [id number] 11/07 CMP Alkal ine phosp hatas e U/L 46.0 116.0 100 FINAL [facility].52 [address] [facility] [address] [place] [address] CLIA#45D [id number] 11/07 CMP AST/S GOT U/L 15.0 37.0 26 FINAL [facility].52 [address] [facility] [address] [place] [address] CLIA#45D [id number] 11/07 CMP ALT/S GPT U/L 14.0 59.0 27 FINAL [facility].52 [address] [facility] [address] [place] [address] CLIA#45D [id number] 11/07 CMP Sodiu m mmol/L 136.0 145.0 143 FINAL [facility].52 [address] [facility] [address] [place] [address] CLIA#45D [id number] 11/07 CMP Potas sium mmol/L 3.5 5.1 4.3 FINAL [facility].52 [address] [facility] [address] [place] [address] CLIA#45D [id number] 11/07 Juliet tin panel Juliet tin ng/mL 8.0 252.0 228 FINAL Tayler Jacobs Serum [facility].52 [facility] [address] [place] [address] CLIA#45D [id number] Medications Date Name Route Dose Frequency Instructions [...] iron Active Vital Signs Date Type Value 11/07/2024 Body Temperature 98.10 11/07/2024 Heart Beat 91.00 11/07/2024 Respiratory Rate 16.00 11/07/2024 Oxygen Saturation 95.00 11/07/2024 BSA 1.62 11/07/2024 Pain Scale 0.00 11/07/2024 Weight 135.00 11/07/2024 Height 62.00 11/07/2024 BMI 24.69 11/07/2024 Intravascular Systolic 92 11/07/2024 Intravascular Diastolic 56 Notes Section * RE[facility] HemOnc Follow Up {John}- [facility] [address] [address] P:?? PATIENT:??JAMESON DOTSON :??1945 Date of Service:??11/07/2024 Referring Provider: Edmond Villarreal MD/Kadeem Aguayo MD Chief Complaint: Principal Diagnosis: * Monoclonal gammopathy of uncertain significance (disorder) ( First record:11/27/2020 Last record:12/13/2020; ICD-10:D47.2 ;Monoclonal gammopathy ) Diagnosis*: Monoclonal gammopathy and anemia Treatment History: Iron Sucrose (Venofer) weekly[Assoc Dx: Iron deficiency anemia (disorder) LOT: 2nd Line ] Treatment History*: Pathology: History of Present Illness: 79-year-old woman, with past medical history of hypertension, hypothyroidism, GERD, hyperlipidemia,depression, CHF, on dual antiplatelet therapy, COPD, former smoker, quit in 2002, developed renal insufficiency and proteinuria.?? She was seen by outside installer apprentice and work-up revealed the presence of monoclonal gammopathy with a ratio of 2, kappa restricted, hence prompting the referral.?? These labs were from 10/22/2020. She has.hx of bariatric sleeve 20 years ago.?Status post gastric bypass surgery??on September 2023. She is asymptomatic and remains in her baseline status of health. February 2023, 1 course of IV iron Interval History: She is here today for as follow-up visit. Was seen at urgent care in [place] 1 month ago for bronchitis and symptoms have improved. She??denies any fevers, chills, night sweats, weight loss or??new bone pains. Past Medical History: Hypertension, hypothyroidism, GERD, hyperlipidemia, depression, CHF, on dual antiplatelet therapy, COPD, former smoker, quit in 2002, proteinuria and mild renal insufficiency followed by outside installer apprentice Past Surgical History: ? Past Surgical History*: COMPOUNDING SCALER History: Medications: Medications reviewed and reconciled with patient. * Aspirin Oral 81 mg 1 TABLET(S) PO daily * Txciidsroyz-Wwgpihuri-Ptimbrdb Inhaler 100 mcg-62.5 mcg-25 mcg/actuation 100-62.5-25 mcg blister with device 1 INHALATION(S) By inhalation as directed * Farxiga (Dapagliflozin Oral) 10 mg tablet daily * Levothyroxine Oral 25 mcg tablet 1 TABLET(S) PO daily * Omeprazole Oral Delayed Release Tablet 20 mg tablet,delayed release (DR/EC) 1 TABLET(S), ENTERIC COATED PO daily * Atorvastatin Oral 10 mg tablet 1 TABLET(S) PO daily * Paroxetine Oral 40 mg tablet 1 TABLET(S) PO daily * Spironolactone Oral 25 mg tablet 1 TABLET(S) PO daily Medications*: Allergies: * Sulfa (Sulfonamide Antibiotics) Allergies*: Smoking Status: Smoking Tobacco : none found; Smokeless Tobacco : none found; Vaping : none found Social History: No history of smoking or alcohol abuse.?? She has 3 adult children.?? 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 Family History*: Her mother had lymphoma ROS: Constitutional:?? No fever, weight loss, or night sweats. ENT:?? No nasal stuffiness or epistaxis. Cardiovascular:?? No orthopnea, PND, or chest pain. Respiratory:?? No coughing wheezing, dyspnea, or chest pain. Gastrointestinal:?? No nausea, vomiting, hematemesis, or hematochezia. Genitourinary:?? No dysuria or hematuria. Skin:?? Negative. Psychiatric:?? Negative. Musculoskeletal: no joint aches or muscle aches Neurological:?? No focal neurological defects. Vitals: Height: 62 in; Weight: 135 lb; Blood pressure: 92/56, Pulse: 91, Temperature: 98.1 F, Respirations:16, Pain Scale: 0 Karnofsky* 90% (Date: 07/07/2023) Physical Exam: CONSTITUTIONAL: Alert and oriented x3, not in acute distress EYES: PERRLA, EOMI?? EARS/NOSE/MOUTH/THROAT: moist mucosal membranes, no exudates?? NECK: Supple, no thyromegaly ?? RESP: Clear to auscultate bilaterally no wheezing or rhonchi, no crepitations?? CV:Reg S1S2 with no murmurs, rubs or gallops?? ABD: soft, NT, ND, bowel sounds active, no hepatosplenomegaly?? LYMPHATIC: no appreciable adenopathy in the cervical, supraclavicular, axillary, inguinal or popliteal basins?? MSK: normal gait, no clubbing/cyanosis or edema of the extremities?? SKIN: no rashes noted NEURO:CN II-XII intact grossly, no focal neurologic deficits?? PSYCH: normal mood ?? Labs: LabResults 11/07/2024 04/26/2024 10/27/2023 07/07/2023 12/30/2022 CBC WBC x 10^3/uL 4.6 (L) 6.4 9.7 5.5 5.9 4.9 RBC x 10^6/uL 4.23 4.06 (L) 3.48 (L) 3.76 (L) 3.90 (L) 3.66 (L) NRBC, absolute, x 10^3/uL 0.00 0.00 0.000 0.000 0.000 0.000 NRBC, % 0.0 0.0 0.0 0.0 0.00 0.00 HGB g/dL 12.4 11.1 (L) 10.0 (L) 11.3 (L) 12.0 10.6 (L) HCT % 40.8 37.0 32.4 (L) 35.5 (L) 38.2 33.8 (L) MCV fL 96.5 91.1 93.1 94.4 97.9 92.3 MCH pg 29.3 27.3 28.7 30.1 30.8 29.0 MCHC g/dL 30.4 (L) 30.0 (L) 30.9 (L) 31.8 (L) 31.4 (L) 31.4 (L) RDW % 14.0 15.9 (H) 15.3 (H) 13.2 15.8 (H) 14.3 PLT x 10^3/uL 216 256 446 (H) 277 234 294 MPV fL 10.3 10.7 10.2 10.3 10.4 10.1 Jordy % 59.7 56.0 64.4 44.9 60.9 43.4 LY % 19.0 19.6 14.6 (L) 29.0 24.4 31.7 MO % 9.8 9.7 10.7 11.6 (H) 9.4 13.6 (H) EO % 9.6 (H) 13.0 (H) 7.1 (H) 12.5 (H) 2.6 9.3 (H) IG % 0.4 0.3 2.10 (H) 1.10 (H) 1.20 (H) 0.60 (H) Jordy # (ANC) x 10^3/uL 2.73 3.57 6.2 2.5 3.6 2.1 BA % 1.5 (H) 1.4 (H) 1.1 (H) 0.9 1.5 (H) 1.4 (H) MO # x 10^3/uL 0.45 0.62 1.0 0.6 0.6 0.7 EO # x 10^3/uL 0.44 (H) 0.83 (H) 0.7 (H) 0.7 (H) 0.2 0.5 (H) BA # x 10^3/uL 0.07 0.09 0.1 0.1 0.1 0.1 IG # x 10^3/uL 0.02 0.02 0.20 (H) 0.06 (H) 0.07 (H) 0.03 LY # x 10^3/uL 0.87 (L) 1.25 1.4 1.6 1.4 1.5 LabResults 11/07/2024 04/26/2024 10/27/2023 07/07/2023 12/30/2022 Chemistries Glucose mg/dL 74 120 (H) 88 115 (H) 107 BUN mg/dL 35 (H) 37 (H) 26 (H) 21 (H) 23 (H) Creatinine, mg/dL 1.41 (H) 1.42 (H) 1.08 1.50 (H) 1.56 (H ) BUN/Creatinine ratio 24.8 26.1 (H) 24.1 14.0 14.7 Sodium mmol/L 143 140 140 137 138 Potassium mmol/L 4.3 4.9 4.7 4.1 3.8 Chloride mmol/L 106 104 103 101 101 CO2 mmol/L 28.0 26.0 25 32 30 Calcium mg/dL 9.7 9.1 8.8 9.6 8.7 Albumin g/dL 3.1 (L) 3.2 (L) 2.7 (L) 2.9 (L) 2.9 (L) Total protein g/dL 7.3 7.1; 7.8 6.8 6.5 7.1 Globulin g/dL 4.2 4.6 (H) A/G ratio 0.7 (L) 0.7 (L) 0.7 (L) 0.8 0.7 (L) Bilirubin, total mg/dL 0.6 0.5 0.3 0.5 0.6 Alkaline phosphatase U/L 100 93 89 83 99 AST/SGOT U/L 26 17 18 22 18 ALT/SGPT U/L 27 26 19 24 21 GFR estimate mL/min/1.73m2 38 (L) 38 (L) 53 (L) 36 (L) 32 (L) ? Labs*: Imaging: Problem List: * Monoclonal gammopathy of uncertain significance (disorder) ( ICD-10:D47.2 ;Monoclonal gammopathy ) * Anemia (disorder) ( ICD-10:D64.9 ;Anemia, unspecified ) * Cannot tolerate oral iron ( ICD-10:T45.4X5A ;Adverse effect of iron and its compounds, initial encounter ) * Iron deficiency anemia (disorder) ( ICD-10:D50.9 ;Iron deficiency anemia, unspecified ) * Iron deficiency anemia (disorder) ( ICD-10:D50.9 ;Iron deficiency anemia, unspecified ) * Nutritional anemia (disorder) ( ICD-10:D53.9 ;Nutritional anemia, unspecified ) * Proteinuria (finding) ( ICD-10:R80.9 ;Proteinuria, unspecified ) Impression: 1.?? Monoclonal gammopathy 2.?? Anemia 3.?? Proteinuria/mild renal insufficiency, diagnosed October 2020 4.?? Other medical problems include hypertension, hypothyroidism, GERD, hyperlipidemia, depression,CHF, on dual antiplatelet therapy, COPD, former smoker, quit in 2002 Plan: 1.?? Monoclonal gammopathy of undetermined significance.?? Labs obtained on 10/22/2020 showed mild abnormality in serum light chain assay, kappa restricted with a ratio of 2.59.?? SPEP and NOHEMI were normal.?? Most recent??kappa lambda light chain ratio remains stable but slightly abnormal. Today's??Myeloma labs pending.?? Patient is asymptomatic. ??Labs have been??stable, no evidence of disease progression. Recommended monitoring every 6 months.?? 2.?? Anemia.?Multifactorial. ??Anemia of chronic disease and renal insufficiency??and iron deficiency. ??She is not a candidate for darbepoetin.?Received IV iron in February 2023 with good response.?Drop in hemoglobin noted at October 2023 visit??likely from recent hospitalization sepsis and??recurrent surgeries. ???Hemoglobin has improved and?? noted to be normal today.?? Iron studies pending. Will continue tomonitor. Will receive IV iron as needed. Does not tolerate oral iron.?? 3.?? Proteinuria/mild renal insufficiency, mild, stable?? .4.?? Other medical problems include hypertension, hypothyroidism, GERD, hyperlipidemia, depression, CHF, on dual antiplatelet therapy, COPD, former smoker, quit in 2002 . Tayler Jacobs MEDICAL TRANSPORT SPECIALIST ? Send copy of note to: MD Edmond Hicks MD. Electronically signed by Tayler Jacobs NP 11/07/2024 13:31 ASSISTANT FRONT OFFICE MANAGER
--- OUTSIDE RECORDS SUMMARY | 2025-01-28 18:34 | XMS_ITS | CCD ---
Author Name Interface, [id number] lity Address [place] [address] Organization [facility] Address [place] [address] Care Team Providers Care Fence Installer Helper Name Role Phone Mary Gomez Unavailable Unavailable Care Plan Date Type Value 05/16/2025 APPOINTMENT LAB OV 6M 05/16/2025 APPOINTMENT LAB OV 6M 11/07/2024 APPOINTMENT LAB OV 11/07/2024 APPOINTMENT LAB OV 10/27/2024 APPOINTMENT LAB OV 10/27/2024 APPOINTMENT LAB OV 04/26/2024 APPOINTMENT LAB OV 04/26/2024 APPOINTMENT LAB OV 04/26/2024 LABORDER Iron, TIBC, Ferr itin panel 04/26/2024 LABORDER CMP 04/26/2024 LABORDER SPEP with immuno fixation 04/26/2024 LABORDER CBC w/auto diff with reflex 04/26/2024 LABORDER [place]/lambda wit h K/L ratio, free, serum (mg/dL) 11/07/2024 LABORDER Iron, TIBC, Ferr itin panel 11/07/2024 LABORDER [place]/lambda wit h K/L ratio, free, serum (mg/dL) 11/07/2024 LABORDER SPEP with immuno fixation 11/07/2024 LABORDER CBC w/auto diff with reflex 11/07/2024 LABORDER CMP 05/16/2025 LABORDER SPEP with immuno fixation 05/16/2025 LABORDER CBC w/auto diff with reflex 05/16/2025 LABORDER Iron, TIBC, Ferr itin panel 05/16/2025 LABORDER CMP 05/16/2025 LABORDER [place]/lambda wit h K/L ratio, free, serum (mg/dL) Reason for Visit LAB OV Encounters Date Name 05/16/2025 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 [facility] [address] [place] [address] .[place] [address] CLIA#[id number] [id number] 11/07 SPEP with immun ofixa tion Alpha -2 globu ashley g/dL 0.5 0.9 0.7 [facility] [place] [address].[place] [address] 11/07 SPEP with immun ofixa tion Total prote in g/dL 6.1 8.1 6.4 FINAL Luis Brown [facility].[address] [place] [address] 12.[place] [address] 11/07 SPEP with immun ofixa tion Album in, SPE g/dL 3.8 4.8 3.4 Low [facility] [place] [address] 12.[place] [address] 11/07 SPEP with immun ofixa tion Gamma globu sahley g/dL 0.8 1.7 1.1 FINAL Luis Brown [facility].[address] [place] [address] 12.[place] [address] 11/07 SPEP with immun ofixa tion Alpha -1 globu ashley g/dL 0.2 0.3 0.3 [facility] [place] [address] 12.[place] [address] 11/07 SPEP with immun ofixa tion Beta- 2 g/dL 0.2 0.5 0.4 FINAL Luis Tucker [facility].2 [address] [address] [address] 12.[place] [address] 11/07 SPEP with immun ofixa tion Beta- 1 g/dL 0.4 0.6 0.4 FINAL Luis Tucker [facility].2 [address] [address] [address] 12.[place] [address] 11/07 SPEP with immun ofixa tion NOHEMI inter preta tion Results Below Normal pattern. No monoclona l proteins detected. FINAL Lusi Tucker [facility].2 [address] [address] [address] 12.[place] [address] 11/07 SPEP with immun ofixa tion SPE inter preta tion Results Below Abnormal appearing gamma globulin peak, possibly monoclona l. If indicated ,recommen d immunotyp ing (Test Code: [id number]) for further evaluatio n. If the SPEPwas ordered with reflex, immunotyp ing will be resulted upon completio n. FINAL Luis Tucker [facility].2 [address] [address] [address] 12.[place] [address] 11/07 TIBC and perce nt sat w/ iron panel Iron, % satur ation % 15.0 50.0 19 FINAL [facility].[address] [facility] [address] [place] [address] CLIA#45D [id number] 11/07 TIBC and perce nt sat w/ iron panel Iron ug/dL 50.0 170.0 60.0 FINAL [facility].[address] [facility] [address] [place] [address] CLIA#45D [id number] 11/07 TIBC and perce nt sat w/ iron panel TIBC ug/dL 250.0 450.0 311.0 FINAL [facility].[address] [facility] [address] [place] [address] CLIA#45D [id number] 11/07 CMP ALT/S GPT U/L 14.0 59.0 27 FINAL Luis [facility].52 36 [facility] [address] [place] [address] CLIA#45D [id number] 11/07 CMP A/G ratio 0.8 2.0 0.7 Low FINAL [facility].52 [address] [facility] [address] [place] [address] CLIA#45D [id number] 11/07 CMP Gluco se mg/dL 74.0 106.0 74 FINAL [facility].52 36 [facility] [address] [place] [address] CLIA#45D [id number] 11/07 CMP Globu ashley g/dL 2.2 4.2 4.2 FINAL [facility].52 36 [facility] [address] [place] [address] CLIA#45D [id number] 11/07 CMP AST/S GOT U/L 15.0 37.0 26 FINAL [facility].52 [address] [facility] [address] [place] [address] CLIA#45D [id number] 11/07 CMP Bilir ubin, total mg/dL 0.2 1.0 0.6 FINAL [facility].52 36 [facility] [address] [place] [address] CLIA#45D [id number] 11/07 CMP Sodiu m mmol/L 136.0 145.0 143 FINAL [facility].52 36 [facility] [address] [place] [address] CLIA#45D [id number] 11/07 CMP Alkal ine phosp hatas e U/L 46.0 116.0 100 FINAL [facility].52 36 [facility] [address] [place] [address] CLIA#45D [id number] 11/07 CMP GFR estim ate mil/mi n/1.73 m2 38 Low Result based on the eGFR 2020 calculati on.60-89 mL/min/1. 73m^2 without kidney damage may be normal.60 -89 mL/min/1. 73m^2 for 3 months or more, along with kidney damage, may indicate early kidney disease.C alculatio n modified to the 2020 formula effective 01/16/23. FINAL [facility].52 [address] [facility] [address] [place] [address] CLIA#45D [id number] 11/07 CMP Calci um mg/dL 8.5 10.1 9.7 FINAL [facility].52 [address] [facility] [address] [place] [address] CLIA#45D [id number] 11/07 CMP CO2 mmol/L 21.0 32.0 28.0 FINAL [facility].52 36 [facility] [address] [place] [address] CLIA#45D [id number] 11/07 CMP Creat inine , mg/dL mg/dL 0.55 1.3 1.41 High FINAL [facility].52 [address] [facility] [address] [place] [address] CLIA#45D [id number] 11/07 CMP Chlor loly mmol/L 97.0 107.0 106 FINAL [facility].[address] [facility] [address] [place] [address] CLIA#45D [id number] 11/07 CMP BUN mg/dL 7.0 18.0 35 High FINAL [facility].[address] [facility] [address] [place] [address] CLIA#45D [id number] 11/07 CMP Album in g/dL 3.4 5.0 3.1 Low FINAL [facility].[address] [facility] [address] [place] [address] CLIA#45D [id number] 11/07 CMP BUN/C reati nine ratio 6.0 25.0 24.8 FINAL [facility].52 [address] [facility] [address] [place] [address] CLIA#45D [id number] 11/07 CMP Potas sium mmol/L 3.5 5.1 4.3 FINAL [facility].[address] [place] [address] CLIA#45D [id number] 11/07 [place] /rodriguez da with K/L ratio , free, serum (mg/d L) [place] [employer] , free mg/L 3.3 19.4 73.5 High FINAL [facility].[address] [address] [address] [address] 11/07 [place] /rodriguez da with K/L ratio , free, [...] to therapy of these disorders . FINAL [facility].2 [address] [address] [address].[place] [address] 11/07 [place] /rodriguez da with K/L ratio , free, serum (mg/d L) [place] a light chain , free mg/L 5.7 26.3 35.8 High FINAL [facility].2 [address] [address] [address] 12[place] [address] 11/07 CBC w/aut o diff with refle x Jordy # (ANC) 10^3/u L 1.5 6.5 2.73 FINAL Luis Tucker Whole Blood [facility].[address] [place] [address] CLIA#45D [id number] 11/07 CBC w/aut o diff with refle x MCV fL 81.0 99.0 96.5 FINAL Luis Tucker Whole Blood [facility].[address] [place] [address] CLIA#45D [id number] 11/07 CBC w/aut o diff with refle x IG % % 0.0 0.5 0.4 FINAL Luis Tucker Whole Blood [facility].[address] [place] [address] CLIA#45D [id number] 11/07 CBC w/aut o diff with refle x MO # 10^3/u L 0.0 1.0 0.45 FINAL Luis Tucker Whole Blood [facility].[address] [place] [address] CLIA#45D [id number] 11/07 CBC w/aut o diff with refle x IG # 10^3/u L 0.0 0.03 0.02 FINAL Luis Tucker Whole Blood [facility].[address] [place] [address] CLIA#45D [id number] 11/07 CBC w/aut o diff with refle x MO % % 3.0 11.0 9.8 FINAL Luis Tucker Whole Blood [facility].[address] [place] [address] CLIA#45D [id number] 11/07 CBC w/aut o diff with refle x EO # 10^3/u L 0.0 0.3 0.44 High FINAL Luis Tucker Whole Blood [facility].[address] [place] [address] CLIA#45D [id number] 11/07 CBC w/aut o diff with refle x EO % % 0.0 3.0 9.6 High FINAL Luis Tucker Whole Blood [facility].[address] [place] [address] CLIA#45D [id number] 11/07 CBC w/aut o diff with refle x RBC 10^6/u L 4.2 5.4 4.23 FINAL Luis Tucker Whole Blood [facility].[address] [place] [address] CLIA#45D [id number] 11/07 CBC w/aut o diff with refle x MPV fL 9.4 12.3 10.3 FINAL Luis Tucker Whole Blood [facility].[address] [place] [address] CLIA#45D [id number] 11/07 CBC w/aut o diff with refle x BA % % 0.0 1.0 1.5 High FINAL Luis Tucker Whole Blood [facility].[address] [place] [address] CLIA#45D [id number] 11/07 CBC w/aut o diff with refle x BA # 10^3/u L 0.0 0.2 0.07 FINAL Luis Tucker Whole Blood [facility].[address] [facility] [address] [place] [address] CLIA#45D [id number] 11/07 CBC w/aut o diff with refle x HGB g/dL 12.0 16.0 12.4 FINAL Luis Tucker Whole Blood [facility].[address] [place] [address] CLIA#45D [id number] 11/07 CBC w/aut o diff with refle x MCHC g/dL 33.0 37.0 30.4 Low FINAL Luis Tucker Whole Blood [facility].[address] [facility] [address] [place] [address] CLIA#45D [id number] 11/07 CBC w/aut o diff with refle x HCT % 37.0 47.0 40.8 FINAL Luis Tucker Whole Blood [facility].[address] [place] [address] CLIA#45D [id number] 11/07 CBC w/aut o diff with refle x NRBC, % % 0.0 0.2 0.0 FINAL Luis Tucker Whole Blood [facility].[address] [place] [address] CLIA#45D [id number] 11/07 CBC w/aut o diff with refle x WBC 10^3/u L 4.8 10.8 4.6 Low FINAL Luis Tucker Whole Blood [facility].[address] [place] [address] CLIA#45D [id number] 11/07 CBC w/aut o diff with refle x PLT 10^3/u L 130.0 400.0 216 FINAL Luis Tucker Whole Blood [facility].[address] [place] [address] CLIA#45D [id number] 11/07 CBC w/aut o diff with refle x RDW % 10.5 14.5 14.0 FINAL Luis Tucker Whole Blood [facility].[address] [place] [address] CLIA#45D [id number] 11/07 CBC w/aut o diff with refle x LY % % 15.0 41.0 19.0 FINAL Luis Tucker Whole Blood [facility].[address] [place] [address] CLIA#45D [id number] 11/07 CBC w/aut o diff with refle x MCH pg 27.0 31.0 29.3 FINAL Luis Tucker Whole Blood [facility].[address] [place] [address] CLIA#45D [id number] 11/07 CBC w/aut o diff with refle x LY # 10^3/u L 1.2 3.4 0.87 Low FINAL [facility] Whole Blood [facility].[address] [facility] [address] [place] [address] CLIA#45D [id number] 11/07 CBC w/aut o diff with refle x NRBC, absol jose, x 10^3/ uL 10^3/u L 0.0 0.01 0.00 FINAL [facility] Whole Blood [facility].[address] [facility] [address] [place] [address] CLIA#45D [id number] 11/07 CBC w/aut o diff with refle x Jordy % % 40.0 77.0 59.7 FINAL [facility] Blood [facility].[address] [facility] [address] [place] [address] [address] CLIA#45D [id number] Medications Date Name Route Dose Frequency Instructions Start Date End Date Status Dapagliflozin Oral daily active 2020 Fluticasone-Umec lidin-Vilanter Inhaler 100 mcg-62.5 mcg-25 mcg/actuation By inhalation 1.0 INHALATI ON(S) as directed 2020 active 2020 Spironolactone Oral PO 1.0 TABLET(S ) daily 2020 active 2020 Paroxetine Oral PO 1.0 TABLET(S ) daily 2020 active 2020 Cetirizine Oral Disintegrating Tablet PO 10.0 MG daily 12/12 inactive 2020 Levothyroxine Oral PO 1.0 TABLET(S ) daily 2020 active 2020 Clopidogrel Oral PO 1.0 TABLET(S ) daily 12/12 inactive 2020 Omeprazole Oral Delayed Release Tablet PO 1.0 TABLET(S ), ENTERIC COATED daily 2020 active 2020 Docusate Sodium Oral PO 1.0 CAPSULE( S) BID PRN 12/12 inactive 2020 Aspirin Oral PO 1.0 TABLET(S ) daily 2020 active 2020 Atorvastatin Oral PO 1.0 TABLET(S ) daily 2020 active Problems Diagnosis Status Date of Diagnosi s Body mass index [BMI] 28.0-28.9, adult Inactive Monoclonal gammopathy of uncertain significance (disorder) Active Proteinuria (finding) Active Anemia (disorder) Active Nutritional anemia (disorder) Active Iron deficiency anemia (disorder) Active Iron deficiency anemia (disorder) Active Cannot tolerate oral iron Active Procedures Date Category Name Instructions Status 04/26/2024 Physician Order RTC PA Ordered 10/27/2024 Physician Order RTC REYES/Lab Ordered 05/16/2025 Physician Order RTC REYES/Lab Ordered Social History Date Name Value 11/07/2024 Sex Female Vital Signs Date Type Value 11/07/2024 Height 62.00 11/07/2024 Weight 135.00 11/07/2024 Intravascular Systolic 92 11/07/2024 Intravascular Diastolic 56 11/07/2024 Respiratory Rate 16.00 11/07/2024 Heart Beat 91.00 11/07/2024 Body Temperature 98.10 11/07/2024 Pain Scale 0.00 11/07/2024 Oxygen Saturation 95.00 11/07/2024 BMI 24.69
--- OUTSIDE RECORDS SUMMARY | 2025-01-28 18:34 | XMS_ITS | CCD ---
Author Name Interface, [id number] lity Address [place] [address] Organization [facility] Address More breakthroughs[place] [address] Care Team Providers Care Unit Secy Name Role Phone Mary Gomez Unavailable Unavailable Care Plan Reason for Visit Encounters Functional Status Diagnostic Results Medications Problems Procedures Social History Vital Signs
--- OUTSIDE RECORDS SUMMARY | 2025-01-28 18:34 | XMS_ITS ---
Author Name Interface, O0Yrwhvvw lity Address [place] [address] Organization [facility] Address 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 Name Role Phone Tayler Jacobs Unavailable Unavailable Allergies and Adverse Reactions Medication/Group Name Reaction Severity Date Sulfa (Sulfonamide Antibiotics) 11/07/2024 Plan Date Type Value 05/16/2025 APPOINTMENT LAB OV 6M 05/16/2025 APPOINTMENT LAB OV 6M 11/07/2024 APPOINTMENT LAB OV 11/07/2024 APPOINTMENT LAB OV 11/07/2024 LABORDER SPEP with immuno fixation 11/07/2024 LABORDER CBC w/auto diff with reflex 11/07/2024 LABORDER Alleene/lambda wit h K/L ratio, free, serum (mg/dL) 11/07/2024 LABORDER CMP 11/07/2024 LABORDER Iron, TIBC, Ferr itin panel 05/16/2025 LABORDER CBC w/auto diff with reflex 05/16/2025 LABORDER SPEP with immuno fixation 05/16/2025 LABORDER CMP 05/16/2025 LABORDER Alleene/lambda wit h K/L ratio, free, serum (mg/dL) [...] Ordered By Specimen Source Lab Address 11/07 Alleene /rodriguez da with K/L ratio , free, serum (mg/d L) Alleene light chain , free mg/L 3.3 19.4 73.5 High FINAL Luis [facility] [place] [address] 12.[place] [address] 11/07 Alleene /rodriguez da with K/L ratio , free, serum (mg/d L) Lambd a light chain , free mg/L 5.7 26.3 35.8 High FINAL [facility].[address] [place] [address] 12.[place] [address] 11/07 Alleene /rodriguez da with K/L ratio , free, [...] therapy of these disorders . FINAL [facility] [place] [address] 12.[place] [address] 11/07 SPEP with immun ofixa tion Total prote in g/dL 6.1 8.1 6.4 FINAL [facility] [place] [address] 12[place] [address] 11/07 SPEP with immun ofixa tion NOHEMI inter preta tion Results Below Normal pattern. No monoclona l proteins detected. FINAL [facility] [place] [address] 12.[place] [address] 11/07 SPEP with immun ofixa tion Album in, SPE g/dL 3.8 4.8 3.4 Low FINAL [facility] [address] [address] 12[address] [address] 11/07 SPEP with immun ofixa tion Alpha -1 globu ashley g/dL 0.2 0.3 0.3 FINAL [facility] [address] [address] [address] 12[address] [address] 11/07 SPEP with immun ofixa tion Alpha -2 globu ashley g/dL 0.5 0.9 0.7 FINAL [facility] [address] [address] [address] 12[place] [address] 11/07 SPEP with immun ofixa tion Beta- 1 g/dL 0.4 0.6 0.4 FINAL [facility] [address] [address] [address] 12[place] [address] 11/07 SPEP with immun ofixa tion Beta- 2 g/dL 0.2 0.5 0.4 FINAL [facility] [place] [address] [address] 12.[place] [address] 11/07 SPEP with immun ofixa tion Gamma globu ashley g/dL 0.8 1.7 1.1 [facility] [place] [address] [address] 12[place] [address] 11/07 SPEP with immun ofixa tion SPE inter preta tion Results Below Abnormal appearing gamma globulin peak, possibly monoclona l. If indicated ,recommen d immunotyp ing (Test Code: [id number]) for further evaluatio n. If the SPEPwas ordered with reflex, immunotyp ing will be resulted upon completio n. FINAL [facility]2 [address] [address] [address] 12[place] [address] 11/07 CBC w/aut o diff with refle x WBC 10^3/u L 4.8 10.8 4.6 Low FINAL [facility] Whole Blood [facility].[address] [facility] zaid Nelson.[address] [place] [address] CLIA#45D [id number] 11/07 CBC w/aut o diff with refle x RBC 10^6/u L 4.2 5.4 4.23 FINAL Luis [facility] Whole Blood [facility].[address] [place] [address] CLIA#45D [id number] 11/07 CBC w/aut o diff with refle x HGB g/dL 12.0 16.0 12.4 FINAL Luis [facility] Whole Blood [facility].[address] [facility] ty e [address] [place] [address] CLIA#45D [id number] 11/07 CBC w/aut o diff with refle x HCT % 37.0 47.0 40.8 FINAL Luis [facility] Whole Blood [facility].[address] [facility] it e [address] [place] [address] CLIA#45D [id number] 11/07 CBC w/aut o diff with refle x MCV fL 81.0 99.0 96.5 FINAL [facility] Whole Blood [facility].[address] [facility] [address] [place] [address] CLIA#45D [id number] 11/07 CBC w/aut o diff with refle x MCH pg 27.0 31.0 29.3 FINAL [facility] Whole Blood [facility].[address] [facility] [address] [place] [address] CLIA#45D [id number] 11/07 CBC w/aut o diff with refle x MCHC g/dL 33.0 37.0 30.4 Low FINAL Luis [facility] Whole Blood [facility].[address] [facility] ty it e [address] [place] [address] CLIA#45D [id number] 11/07 CBC w/aut o diff with refle x PLT 10^3/u L 130.0 400.0 216 FINAL [facility] Whole Blood [facility].[address] [facility] ty it e [address] [place] [address] CLIA#45D [id number] 11/07 CBC w/aut o diff with refle x MPV fL 9.4 12.3 10.3 FINAL Luis [facility] Whole Blood [facility].[address] [place] [address] CLIA#45D [id number] 11/07 CBC w/aut o diff with refle x RDW % 10.5 14.5 14.0 FINAL [facility] Whole Blood [facility].[address] [place] [address] CLIA#45D [id number] 11/07 CBC w/aut o diff with refle x Jordy % % 40.0 77.0 59.7 FINAL [facility] Whole Blood [facility].[address] [place] [address] CLIA#45D [id number] 11/07 CBC w/aut o diff with refle x Jordy # (ANC) 10^3/u L 1.5 6.5 2.73 FINAL [facility] Whole Blood [facility].[address] [place] [address] CLIA#45D [id number] 11/07 CBC w/aut o diff with refle x IG % % 0.0 0.5 0.4 FINAL [facility] Whole Blood [facility].[address] [place] [address] CLIA#45D [id number] 11/07 CBC w/aut o diff with refle x IG # 10^3/u L 0.0 0.03 0.02 FINAL Luis [facility] Whole Blood [facility].[address] [place] [address] CLIA#45D [id number] 11/07 CBC w/aut o diff with refle x LY % % 15.0 41.0 19.0 FINAL Luis [facility] Whole Blood [facility].[address] [place] [address] CLIA#45D [id number] 11/07 CBC w/aut o diff with refle x LY # 10^3/u L 1.2 3.4 0.87 Low FINAL [facility] Whole Blood [facility].[address] [place] [address] CLIA#45D [id number] 11/07 CBC w/aut o diff with refle x MO % % 3.0 11.0 9.8 FINAL [facility] Whole Blood [facility].[address] [place] [address] CLIA#45D [id number] 11/07 CBC w/aut o diff with refle x MO # 10^3/u L 0.0 1.0 0.45 FINAL [facility] Whole Blood [facility].[address] [facility] ty e [address] [place] [address] CLIA#45D [id number] 11/07 CBC w/aut o diff with refle x EO % % 0.0 3.0 9.6 High FINAL [facility] Whole Blood [facility].[address] [facility] [address] [place] [address] CLIA#45D [id number] 11/07 CBC w/aut o diff with refle x EO # 10^3/u L 0.0 0.3 0.44 High FINAL [facility] Whole Blood [facility].[address] [facility] [address] [place] [address] CLIA#45D [id number] 11/07 CBC w/aut o diff with refle x BA % % 0.0 1.0 1.5 High FINAL [facility] Whole Blood [facility].[address] [facility] [address] [place] [address] CLIA#45D [id number] 11/07 CBC w/aut o diff with refle x BA # 10^3/u L 0.0 0.2 0.07 FINAL [facility] Whole Blood [facility].[address] [facility] [address] [place] [address] CLIA#45D [id number] 11/07 CBC w/aut o diff with refle x NRBC, % % 0.0 0.2 0.0 FINAL [facility] Whole Blood [facility].[address] [facility] [address] [place] [address] CLIA#45D [id number] 11/07 CBC w/aut o diff with refle x NRBC, absol jose, x 10^3/ uL 10^3/u L 0.0 0.01 0.00 FINAL [facility] Whole Blood [facility].[address] [facility] [address] [place] [address] CLIA#45D [id number] 11/07 TIBC and perce nt sat w/ iron panel Iron ug/dL 50.0 170.0 60.0 FINAL [facility].[address] [facility] [address] [place] [address] CLIA#45D [id number] 11/07 TIBC and perce nt sat w/ iron panel TIBC ug/dL 250.0 450.0 311.0 FINAL [facility].52 [address] [facility] [address] [place] [address] CLIA#45D [id number] 11/07 TIBC and perce nt sat w/ iron panel Iron, % satur ation % 15.0 50.0 19 FINAL [facility].[address] [facility] [address] [place] [address] CLIA#45D [id number] 11/07 CMP Chlor loly mmol/L 97.0 107.0 106 FINAL [facility].52 [address] [facility] [address] [place] [address] CLIA#45D [id number] 11/07 CMP CO2 mmol/L 21.0 32.0 28.0 FINAL [facility].52 [address] [facility] [address] [place] [address] CLIA#45D [id number] 11/07 CMP Gluco se mg/dL 74.0 106.0 74 FINAL [facility].[address] [place] [address] [place] [address] CLIA#45D [id number] 11/07 CMP BUN mg/dL 7.0 18.0 35 High FINAL [facility].[address] [place] [place] [address] CLIA#45D [id number] 11/07 CMP Creat inine , mg/dL mg/dL 0.55 1.3 1.41 High FINAL [facility].[address] [facility] [address] [place] [address] CLIA#45D [id number] 11/07 CMP GFR estim ate mil/mi n/1.73 m2 38 Low Result based on the eGFR 2020 calculati on.60-89 mL/min/1. 73m^2 without kidney damage may be normal.60 -89 mL/min/1. 73m^2 for 3 months or more, along with kidney damage, may indicate early kidney disease.C alculatio n modified to the 2020 formula effective 01/16/23. FINAL [facility].[address] [place] [place] [address] CLIA#45D [id number] 11/07 CMP BUN/C reati nine ratio 6.0 25.0 24.8 FINAL [facility].[address] [address] [place] [address] CLIA#45D [id number] 11/07 CMP Calci um mg/dL 8.5 10.1 9.7 FINAL [facility].[address] [facility] [address] [place] [address] CLIA#45D [id number] 11/07 CMP Album in g/dL 3.4 5.0 3.1 Low FINAL [facility].[address] [facility] [address] [place] [address] CLIA#45D [id number] 11/07 CMP Total prote in g/dL 6.4 8.2 7.3 FINAL [facility].[address] [facility] [address] [place] [address] CLIA#45D [id number] 11/07 CMP Globu ashley g/dL 2.2 4.2 4.2 FINAL [facility].[address] [facility] [address] [place] [address] CLIA#45D [id number] 11/07 CMP A/G ratio 0.8 2.0 0.7 Low FINAL [facility].[address] [facility] [address] [place] [address] CLIA#45D [id number] 11/07 CMP Bilir ubin, total mg/dL 0.2 1.0 0.6 FINAL [facility].[address] [facility] [address] [place] [address] CLIA#45D [id number] 11/07 CMP Alkal ine phosp hatas e U/L 46.0 116.0 100 FINAL [facility].[address] [facility] [address] [place] [address] CLIA#45D [id number] 11/07 CMP AST/S GOT U/L 15.0 37.0 26 FINAL [facility].[address] [facility] [address] [place] [address] CLIA#45D [id number] 11/07 CMP ALT/S GPT U/L 14.0 59.0 27 FINAL [facility].[address] [facility] [address] [place] [address] CLIA#45D [id number] 11/07 CMP Sodiu m mmol/L 136.0 145.0 143 FINAL [facility].[address] [facility] [address] [place] [address] CLIA#45D [id number] 11/07 CMP Potas sium mmol/L 3.5 5.1 4.3 FINAL [facility] Plasma [facility].[address] [facility] [address] [place] [address] CLIA#45D [id number] 11/07 Juliet tin panel Juliet tin ng/mL 8.0 252.0 228 FINAL Tayler Jacobs Serum [facility].[address] [facility] [address] [place] [address] CLIA#45D [id number] Medications Date Name Route Dose Frequency Instructions [...] * REYES HemOnc Follow Up {John}- Reynaldo [facility] [address] [address] P:?? PATIENT:??JAMESON DOTSON :??1945 Date of Service:??11/07/2024 [...] insufficiency and proteinuria.?? 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 Was seen at urgent care in [place] 1 month ago for bronchitis and symptoms have improved. She??denies any fevers, chills, night sweats, weight loss or??new bone pains. Past Medical History: Hypertension, hypothyroidism, GERD, hyperlipidemia, depression, CHF, on dual antiplatelet therapy, COPD, former smoker, quit in 2002, proteinuria and mild renal insufficiency followed by pot press operator Past Surgical History: ? 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 * Aspirin Oral 81 mg 1 TABLET(S) PO daily * Rpvijvxrkwi-Bzqkfgprg-Ioiunnkx Inhaler 100 mcg-62.5 mcg-25 mcg/actuation 100-62.5-25 mcg [...] 3 adult children.?? 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 [...] smoker, quit in 2002 . Tayler Jacobs INSURANCE CLAIM APPROVER ? Send copy of note to: MD Edmond Hicks MD. Electronically signed by Tayler Jacobs NP 11/07/2024 13:31 BANK CREDIT CARD COLLECTION CLERK
--- OUTSIDE RECORDS SUMMARY | 2025-01-28 18:34 | XMS_ITS | Data Portability ---
Author Organization [place] - 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 Egan presents with a venous ulcer CEAP 6, VCSS 8 and bilateral LE edema despite compression stockings daily for the past 4 months along with leg elevation and calf exercises. Will obtain a venous duplex to assess for degree of superficial venous reflux. Pending this, will then consider endovenous closure. I have asked her to continue compression stockings during the daytime. [email or web address] Not available 05/01/2023 01:20:54 06/16/2023 06/16/2023 In summary, Ms. Egan presents for follow-up of her LE edema. Her recent venogram showed no significant iliac vein compression and her venous duplex showed only mild reflux in the right GSV. I have therefore asked her to see Dr. Rowland for echocardiogram and evaluation of ?diastolic dysfunction. I have asked her to see me back as needed for persistent LE edema if her cardiac workup is unrevealing. [email or web address] Not available 06/16/2023 16:07:08 08/11/2023 08/11/2023 In summary, Ms. Egan presents for follow-up of her LE edema. Continues to have significant BLE edema with right leg worse than left leg despite compression stockings daily for the past 1 month along with leg elevation and calf exercises. Recent leg measurements taken recently are documented below. I will plan to see her back in 6 months. [email or web address] Not available 08/11/2023 17:56:15 Plan of Treatment Reminders Order Date Submit Date Provider Last Modified By Organization Details Last Modified Time Details Appointments None recorded. Lab None recorded. Referral None recorded. Procedures None recorded. Surgeries None recorded. Imaging US, duplex, venous, extremity, complete 2022 023 GAGANDEEP Watkins, [address] [facility], [facility] [address], [address], 19:08:34 electrocard iogram 2022 023 [email or web address] 8 [facility], [address] [place] [address], [facility], [facility] [address], [place], [address], 15:40:23 Medication Orders None recorded. Patient TargetsNo targets recorded. Patient Instructions Encounter Date Encounter Id Patient Instructions Last Modified By Organization Details Last Modified Time 06/16/2023 [id number] body mass index: care instructions [email or web address] Not available 06/16/2023 16:07:21 learning about healthy weight [email or web address] Not available 06/16/2023 16:07:20 Reason for Referral None Reported. Results Created Date Observation Date Name Description Value Unit Range Abnormal Flag Note LastModifiedBy Organization Detail LastModifiedTime 04/30/20 23 elect rocar diogr am No observ ation record ed. [facility] [address] [facility] [address], [facility] [address], [place], [address], 05/01/2023 01:19:45 04/30/20 elect rocar diogr am No observ ation record ed. [email or web address] Not Available 2022 15:32:40 05/07/20 23 05/05/2023 , ayanna xramakrishna s, dinora rodriguez, compl ete No observ ation record ed. [email or web address] Not Available 05/10 08:49:58 Result Notes None recorded. 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 Procedures Surgical History Date Name Laterality Status Provider Name and Address Organization Details Recorded Time 06/09/20 23 ABDOMINAL AORTOGRAM (SURG) completed Winifred Michelle [place] - [facility] 06/11/2023 12:46:56 06/09/20 ABDOMINAL AORTOGRAM (SURG) completed Winifred Michelle [place] - [facility] 06/11/2023 12:46:43 05/05/20 LE Venous Study, (complete or bilat) completed Tamar Peacock [place] - [facility] 05/10/2023 08:50:19 Cardiac Stent Placement completed Saritha Carri [place] - [facility] 04/30/2023 14:54:24 Tonsillectomy [place] - [facility] 04/30/2023 14:54:24 Back Surgery completed [place] - [facility] 04/30/2023 14:54:24 Carotid Duplex completed [facility] - [facility] 04/30/2023 14:54:24 Hysterectomy completed [place] Carri [place] - [facility] 04/30/2023 14:54:24 Cataract Surgery completed [facility]a Carri [place] - [facility] 04/30/2023 14:54:24 Orthopedic Surgery completed Saritha Carri [place] - [facility] 04/30/2023 14:54:24 Imaging Results Imaging Date Name Status LastModified by Organization Details LastModified Time 04/30/2023 electrocardiogram completed GAGANDEEP [facility] [address] [facility] [address], [place], [address], 05/01/2023 01:19:45 04/30/2023 electrocardiogram completed [email or web address] Informa tion not available 04/30/2023 15:32:40 05/05/2023 US, duplex, venous, extremity, complete completed [email or web address] Information not available 05/10/2023 08:49:58 Procedure Notes None recorded. Medical Equipment None Reported. Allergies Allergen ID Allergen Name Allergen Category Reaction Reaction Severity Criticality Documentation Date Start Date Code Code System Note Provider Name and Address Organization Details Recorded Time [id number] Substance with sulfonami de structure and antibacte rial mechanism of action (substanc e) medicatio n itching rash Not available Not available Not available 04/30/2023 [id number] SNOMED Not Available Not Available Not Available Medications Name Sig Start Date Stop Date Status Note LastModified by Organization Details LastModified Time metolazone 2.5 mg tablet Take 1 tablet every day by oral route. active Not Available Not Available No t Available atorvastati n 40 mg tablet TAKE 1 TABLET BY MOUTH ONCE DAILY active Not Available Not Available No t Available azithromyci n 250 mg tablet TAKE 2 TABLETS BY MOUTH ON DAY 1, AND THEN TAKE 1 TABLET BY MOUTH ONCE A DAY ON DAY 2 THROUGH DAY 5 04/30 completed Not Available Not Available Not Available acetaminoph en 120 mg-codeine 12 mg/5 mL oral solution TAKE 10 ML BY MOUTH EVERY 6 HOURS NEEDED FOR PAIN active Not Available Not Available No t Available Zyrtec 10 mg tablet Take 1 tablet every day by oral route. active Not Available Not Available No t Available hydrocodone 10 mg-acetamin ophen 325 mg tablet 06/16 completed Not Available Not Available Not Available spironolact one 25 mg tablet TAKE 1 TABLET BY MOUTH ONCE DAILY active Not Available Not Available No t Available levothyroxi ne 25 mcg tablet TAKE 1 TABLET BY MOUTH ONCE DAILY active Not Available Not Available No t Available benzonatate 100 mg capsule TAKE 1 CAPSULE BY MOUTH EVERY 8 HOURS NEEDED FOR COUGH 04/30 completed Not Available Not Available Not Available dexamethaso ne 4 mg tablet TAKE 1 TABLET BY MOUTH ONCE DAILY FOR 5 DAYS 04/30 completed Not Available Not Available Not Available omeprazole 20 mg capsule,del ayed release TAKE 1 CAPSULE BY MOUTH ONCE DAILY active Not Available Not Available No t Available gabapentin 100 mg capsule TAKE 1 CAPSULE BY MOUTH THREE TIMES DAILY active Not Available Not Available No t Available paroxetine 40 mg tablet TAKE 1 TABLET BY MOUTH ONCE DAILY IN THE MORNING active Not Available Not Available No t Available ondansetron 4 mg disintegrat ing tablet DISSOLVE 1 TABLET IN MOUTH EVERY 8 HOURS NEEDED FOR NAUSEA active Not Available Not Available No t Available amoxicillin 875 mg-jesica hope clavulanate 125 mg tablet TAKE 1 TABLET BY MOUTH EVERY 12 HOURS FOR 10 DAYS 04/30 completed Not Available Not Available Not Available Ventolin HFA 90 mcg/actuati on aerosol inhaler INHALE 2 PUFFS BY MOUTH EVERY 6 HOURS NEEDED FOR WHEEZING active Not Available Not Available No t Available Tylenol PM Extra Strength at bedtime active Not Available Not Available No t Available sodium,pota ssium,mag sulfates 17.5 gram-3.13 gram-1.6 gram oral soln TAKE DIRECTED 04/30 completed Not Available Not Available Not Available Farxiga 10 mg tablet Take 1 tablet every day by oral route in the morning. active Not Available Not Available No t Available Paxlovid 300 mg (150 mg x 2)-100 mg tablets in a dose pack TAKE 3 TABLETS TOGETHER (TWO 150 MG NIRMATREL VIR TABLETS AND ONE 100 MG RITONAVIR TABLET) BY MOUTH TWICE DAILY FOR 5 DAYS. 04/30 completed Not Available Not Available Not Available Vitals Date Recorded Body weight Body mass index (BMI) Body height Heart rate Oxygen saturation Oxygen saturation in Arterial blood by Pulse oximetry Systolic blood pressure Diastolic blood pressure Provider Name and Address Organization Details Last Updated DateTime 3 64880.3 7 g 33.2 kg/m2 157.48 cm 88 /min 95 % 95 % 118 mm[Hg] 60 mm[Hg] Saritha Carri [place] - [facility] 14:58:29 Date Recorded Body height Body mass index (BMI) Body weight Heart rate Oxygen saturation Oxygen saturation in Arterial blood by Pulse oximetry Systolic blood pressure Diastolic blood pressure Provider Name and Address Organization Details Last Updated DateTime 3 157.48 cm 33.8 kg/m2 44157.5 9 g 100 /min 95 % 95 % 134 mm[Hg] 68 mm[Hg] Winifred Michelle [place] - [facility] 15:38:18 Date Recorded Body height Body mass index (BMI) Body weight Heart rate Oxygen saturation Oxygen saturation in Arterial blood by Pulse oximetry Systolic blood pressure Diastolic blood pressure Provider Name and Address Organization Details Last Updated DateTime 157.48 cm 33.7 kg/m2 46983 g 96 /min 98 % 98 % 138 mm[Hg] 70 mm[Hg] Navneet Minor [place] - [facility] 16:10:29 Social History Question Answer Notes LastModified by Organizat ion Details LastModified Time Tobacco Smoking Status Former Smoker Saritha Franklinrafa [place], [place] - [facility] 04/30/2023 14:54:24 Do You Have An Advance Directive? No Information not available 04/30/2023 What Is Your Level Of Caffeine Consumption? Moderate Information not available 04/30/2023 What Type Of Diet Are You Following? REGULAR Information not available 04/30/2023 Activity Level? Physically Unable To Exercise Information not available 04/30/2023 Caffeine Type? Coffee Informatio n not available 04/30/2023 Caffeine Type 2? Tea Information not available 04/30/2023 Diet? Regular Information no t available 04/30/2023 Do You Have Children? Yes Information not available 04/30/2023 Support System? Spouse Information not available 04/30/2023 Caffeine Frequency? Daily Information not available 04/30/2023 Alcohol Use? No Information not available 04/30/2023 Caffeine Use? Yes Information not available 04/30/2023 Home Blood Pressure Monitor Yes Information not available 04/30/2023 Number Of Sons 0 Informatio n not available 04/30/2023 Number Of Daughters 3 Information not available 04/30/2023 Are You Retired? Yes Information not available 04/30/2023 Home Exercise Equipment? No Information not available 04/30/2023 Blood Pressure Daily Readings 120 65 Information not available 04/30/2023 Caffeine Amount? 4 Cups Information not available 04/30/2023 What Was The Date Of Your Most Recent Tobacco Screening? 08/11/2023 [email or web address] Information not available 08/11/2023 Sex: Unknown Functional Status None recorded. Mental Status None recorded. Family History Relationship Description Onset Age of this Age Resolved Age Notes LastModified by Organization Details LastModified Time Mother Family history of stroke Not available 2022 14:54:23 Unspecified Relation Stented coronary artery Not available 2022 14:54:23 Medical History Condition Response Coronary Artery Disease Y COPD Y Arthritis Y Stroke Y Hernia Y Gastrointestinal Problems Y Anemia Y Psychological Disorder Y Gynecological HistoryNo gynecological history recorded. Obstetrics History GPAL:G 0 P 0 0 0 0 Past Encounters Encounter ID Performer Location Encounter Start Date Encounter Closed Date Diagnosis/Indication Diagnosis SNOMED-CT Code Diagnosis ICD10 Code Diagnosis Note [id number] Theron Hauser MD [place] [address], [address] [address] 04/30/2023 14:17:57 04/30/2023 15:40:23 Varicose veins of lower extremity with ulcer AND inflammation 85380078 I83.209 Atheroscle rosis of coronary artery without angina pectoris 8377987504 69335 I25.10 [id number] Tamar Ayush Watkins [address] [place] [address] 05/05/2023 10:53:18 05/05/2023 12:51:31 Varicose veins of lower extremity with ulcer AND inflammation 71540711 I83.339 [id number] Theron Hauser [place] [address] [address] 06/16/2023 15:17:55 06/16/2023 18:22:42 Varicose veins of lower extremity with ulcer AND inflammation 15510019 I83.209 Edema of l ower extremity 230705912 R60.0 Body mass index 30+ - obesity 082889913 Z68.33 [id number] MD Roland Shaw [address] [place] [address] [address] [address] 08/11/2023 15:53:29 08/11/2023 16:30:28 Varicose veins of lower extremity with ulcer AND inflammation 36532410 I83.209 Edema of l ower extremity 336501526 R60.0 Body mass index 30+ - obesity 755033361 Z68.33 Lymphedema of lower extremity 468208510 I89.0 Patient has Lymphedema and hyperpigme ntation. She s tried elevation, exercise, and class 2 compressio n for the last 4 weeks;06/16: RAnkle 29.0 RCalf 41.5 LAnkle 30.0 LCalf 35.0 07/21/2023 : RAnkle 29.4 RCalf 41.7 LAnkle 30.2 LCalf 35.3 Health Concerns Section Related Observation LastModified by Organization Detai ls LastModified Time None Recorded Concern Status LastModified by Organization Details LastModified Time None Recorded Advance Directives Directive N: Payers Encounter Date Sequence Insurance Name Policy Number Policy Still Covered Member ID Still Member ID Guarantor Name 04/30/2023 1 [place] [employer] Shelby Joanne Egan [id number] Shelby Egan 04/30/2023 2 [employer] (MEDICARE SUPPLEMENT) Shelby Joanne Egan [id number] Shelby Egan 05/05/2023 1 [place] [employer] Shelby Joanne Egan [id number] Shelby Egan 05/05/2023 2 [employer] (MEDICARE SUPPLEMENT) Shelby Joanne Egan [id number] Shelby Egan 06/16/2023 1 [place] [employer] Shelby Joanne Salgadoon [id number] Shelby Egan 06/16/2023 2 [employer] (MEDICARE SUPPLEMENT) Shelbykwame Egan [id number] Shelby Egan 08/11/2023 1 [place] [employer] Shelbykwame Salgadoon [id number] Shelby Egan 08/11/2023 2 [employer] (MEDICARE SUPPLEMENT) Shelbykwame Egan [id number] Shelbykwame Egan Notes Date Note Type Note Provider Name and Address Organization Details Recorded Time 04/30/2023 text/html 77 yo F referred by Dr. Jolly in wound care for vascular evaluation. Pt developed swelling years ago but worsened about 6 weeks. She has wounds in the right leg with continued swelling. Has compression stockings and has been wearing them for the past 3 months along with leg elevation and calf exercises. Sees Dr. Rowland in cardi[place] [address] [address], [place], [place], [address] [place] [address], [facility] - [facility] 05/01/2023 01:23:30 06/16/2023 text/html 78 yo F with history of LLE venous ulcer, and bilateral MARGARITO presents today for follow-up. Venogram showed no significant iliac vein compression. Sees Dr. Rowland for general cardiac issues. says she has a significant hiatal hernia with plans [place] [address] [address], [place], [place], [address] [place] [address], [facility] 06/16/2023 16:07:31 08/11/2023 text/html 78 yo F with history of LLE venous ulcer, and bilateral LLE presents today for follow-up. Venogram showed no significant iliac vein compression. Sees Dr. Rowland for general cardiac issues and was recently started on Farxiga. Continues to have significant BLE edema, with the RLE edema [place] [address] [address], [place], [address], [facility] 08/11/2023 17:56:25 OBGyn Episode No OBEpisode recorded.
--- OUTSIDE RECORDS SUMMARY | 2025-01-28 18:34 | XMS_ITS | Clinical Summary ---
Author Organization [facility] es Address [address] [place] [address] Care Team Providers Care Spice Room Worker Name Role Phone Kadeem Aguayo Primary Care Provider Source Comments Applies to Substance Abuse Treatment Information Only: The Federal rules restrict any use of the information to criminally investigate or prosecute any Alcohol or Drug Abuse Patient.[place] enymotion [facility] Allergies Active Allergy Reactions Criticality Noted Date Comments Sulfa (Sulfonamide Antibiotics) Rash 12/18 Medications aspirin 81 mg (Víctor) 81 mg chewable tab Take 81 mg by mouth every day Active metOLazone (Zaroxolyn) 2.5 mg tablet Take 2.5 mg by mouth every day Active levothyroxine 25 mcg ORAL tablet Take 25 mcg by mouth daily before breakfast Active atorvastatin (Lipitor) 40 mg tablet Take 40 mg by mouth every day Active PARoxetine (Paxil) 40 mg tablet Take 40 mg by mouth every day Active spironolactone (Aldactone) 25 mg tablet Take 25 mg by mouth every day Active cetirizine (ZyrTEC) 10 mg tablet Take 10 mg by mouth every day Active omeprazole (PriLOSEC) 20 mg capsule Take 20 mg by mouth daily before breakfast Do not crush cap Active Active Problems Problem Noted Date Diagnosed Date Blister of skin - right lower leg 08/24/2023 History of COPD 08/24/2023 History of ulcer of lower limb 08/24/2023 Chronic obstructive pulmonar y disease, unspecified COPD type 04/21/2023 Lymphedema 04/02/2023 Venous (peripheral) insufficiency 04/02/2023 Chronic obstructive pulmonary disease 04/02/2023 Cellulitis of right leg 04/02/2023 Skin ulcer of right lower leg, limited to breakd own of skin 04/02/2023 Social History Tobacco Use Types Packs/Day Years Used Date Smoking Tobacco: Never Assessed Comments Unknown Sex and Gender Information Value Date Recorded Sex Assigned at Not on file Legal Sex 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 Gender Identity Not on file Sexual Orientation Not on file Last Filed Vital Signs Vital Sign Reading Time Taken Comments Blood Pressure 124/73 08/31/2023 11:00 AM 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 Pulse 94 08/31/2023 11:00 AM 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 Temperature 36.3 C (97.4 F) 08/31/2023 11:00 AM 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 Respiratory Rate 18 08/31/2023 11:00 AM 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 Oxygen Saturation 98% 01/16/2020 4:45 PM CDT Inhaled Oxygen Concentration - - Weight 67.1 kg (148 lb) 01/16/2020 2:27 PM CDT Height 165.1 cm (5' 5 ) 01/16/2020 2:27 PM CDT Body Mass Index 24.63 01/16/2020 2:27 PM CDT Plan of Treatment Health Maintenance Due Date Last Done Comments Depression Screening 1957 DTaP,Tdap,and Td Vaccines (1 - Tdap) 1965 Zoster Vaccine Series (Shingrix) (1 of 2) 1997 Fall Risk Screening 2012 Pneumococcal Vaccine 50+ Years (2 of 2 - PCV) 08/02/2021 08/02/2020 RSV Vaccine-Adult 60+ or (1 - 1-dose 75+ series) 2022 Osteoporosis Screening / Followup 02/18/2024 02/17/2022 COVID-19 Vaccine (3 - season) 2024 11/29/2020, 11/08/2020 Influenza Vaccine-Adult (#1) 06/18/202407/2023, 08/31/2022, 08/14/2021, Additional history exists Wellness Visit Over 65 08/27/2024 3, 12/31/2021, 11/19/2020, Additional history exists Fasting Lipids 01/21/2028 01/20/2023, 10/14/2020 Hepatitis B Aged Out No longer eligi ble based on patient's age to complete this topic Meningococcal B Vaccine Aged Out No l onger eligible based on patient's age to complete this topic Meningococcal Vaccine Aged Out No arleen rafael eligible based on patient's age to complete this topic Insurance MEDICARE PART A AND B [facility] Care Teams Spice Room Worker Relationship Specialty Start Date End Date Kadeem Aguayo [address] [place] [id number] PCP - General 3/31/20
--- OUTSIDE RECORDS SUMMARY | 2025-01-28 18:35 | XMS_ITS ---
Author Name Interface, [id number] lity Address [place] breakthroughs[place] [address] Organization [facility] Address [place] breakthroughs[place] [address] Care Team Providers Care Blue Line Hanger Name Role Phone Matt José Unavailable Unavailable Allergies and Adverse Reactions Medication/Group Name Reaction Severity Date Sulfa (Sulfonamide Antibiotics) 11/07/2024 Plan Date Type Value 05/16/2025 APPOINTMENT LAB OV 6M 05/16/2025 APPOINTMENT LAB OV 6M 11/07/2024 APPOINTMENT LAB OV 11/07/2024 APPOINTMENT LAB OV 10/27/2024 APPOINTMENT LAB OV 10/27/2024 APPOINTMENT LAB OV 04/26/2024 APPOINTMENT LAB OV 04/26/2024 APPOINTMENT LAB OV 10/27/2023 APPOINTMENT LAB OV-3M 10/27/2023 APPOINTMENT LAB OV- 10/06/2023 APPOINTMENT LAB OV-3M 10/06/2023 APPOINTMENT LAB OV 07/07/2023 APPOINTMENT LAB OV-6M 07/07/2023 APPOINTMENT LAB OV 07/07/2023 LABORDER Iron, TIBC, Ferr itin panel 07/07/2023 LABORDER CMP 07/07/2023 LABORDER CBC w/ auto diff 07/07/2023 LABORDER [place]/lambda wit h K/L ratio, free, serum (mg/dL) [...] LABORDER SPEP with immuno fixation 04/26/2024 LABORDER [place]/lambda wit h K/L ratio, free, serum (mg/dL) 04/26/2024 LABORDER CBC w/auto diff with reflex 11/07/2024 LABORDER SPEP with immuno fixation 11/07/2024 LABORDER CBC w/auto diff with reflex 11/07/2024 LABORDER [place]/lambda wit h K/L ratio, free, serum (mg/dL) 11/07/2024 LABORDER CMP 11/07/2024 LABORDER Iron, TIBC, Ferr itin panel 05/16/2025 LABORDER CBC w/auto diff with reflex 05/16/2025 LABORDER SPEP with immuno fixation 05/16/2025 LABORDER CMP 05/16/2025 LABORDER [place]/lambda wit h K/L ratio, free, serum (mg/dL) 05/16/2025 LABORDER Iron, TIBC, Ferr itin panel Reason for Visit LAB OV Encounters Date Name 07/07/2023 Iron deficiency anem ia (disorder) 07/07/2023 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) Immunizations Date Name Route Dose Instructions Refusal Reason Stat us Flu vaccine - Adult Comp leted Diagnostic Results Date Type Test Units Lower Limit Upper Limit Result Flag Comments Status Ordered By Specimen Source Lab Address 07/07 SPEP with immun ofixa tion Album in, SPE g/dL 3.1 5.5 3.2 FINAL [facility] [place] [address] 12.[place] [address] 07/07 SPEP with immun ofixa tion Alpha -1 globu ashley g/dL 0.2 0.5 0.5 FINAL [facility] [place] [address] 12[place] [address] 07/07 SPEP with immun ofixa tion Alpha -2 globu ashley g/dL 0.4 1.0 0.8 FINAL [facility] [place] [address] [address] [place] 12[place] [address] 07/07 SPEP with immun ofixa tion Beta globu ashley g/dL 0.5 1.1 0.7 FINAL [facility] [address] [address] [address] 12[place] [address] 07/07 SPEP with immun ofixa tion Gamma globu ashley g/dL 0.7 1.5 0.9 FINAL [facility] John[facility] [address] [address] [address] 12[place] [address] 07/07 SPEP with immun ofixa tion Parap rotei n band, g/dL g/dL None FINAL [facility] [address] [address] [address] 12[place] [address] 07/07 SPEP with immun ofixa tion Total prote in elect ropho resis g/dL 5.7 8.2 6.1 FINAL [facility] [address] [address] [address] 12[place] [address] 07/07 SPEP with immun ofixa tion SPE inter preta tion Results Below Normal serum total protein with normal electroph oretic pattern. FINAL [facility] [address] [address] [address] 12[place] [address] 07/07 SPEP with immun ofixa tion Immun ofixa tion, serum , inter preta tion Results Below No monoclona l peaks detected. FINAL [facility] [address] [address] [address] 12[place] [address] 07/07 CMP Sodiu m mmol/L 136.0 145.0 137 FINAL Mary Palanisa my Plasma [facility] . [address] [place] [address] [employer]. [id number]. [place] [address] CLIA#45D [id number] 07/07 CMP Potas sium mmol/L 3.5 5.1 4.1 FINAL Mary Palanisa my Plasma [facility] . [address] [place] [address] [employer]. [id number]. [place] [address] CLIA#45D [id number] 07/07 CMP Chlor loly mmol/L 97.0 107.0 101 FINAL Mary Palanisa my Plasma [facility] . [address] [place] [address]. [id number]. [place] [address] CLIA#45D [id number] 07/07 CMP CO2 mmol/L 21.0 32.0 32 FINAL Mary Palanisa my Plasma [facility] . [address] [place] [address]. [id number]. [place] [address] CLIA#45D [id number] 07/07 CMP Gluco se mg/dL 74.0 106.0 115 High FINAL Mary Palanisa my Plasma [facility] . [address] [place] [address]. [id number]. [place] [address] CLIA#45D [id number] 07/07 CMP BUN mg/dL 7.0 18.0 21 High FINAL Mary Palanisa my Plasma [facility] . [address] [place] [address]. [id number]. [place] [address] CLIA#45D [id number] 07/07 CMP Creat inine , mg/dL mg/dL 0.55 1.3 1.50 High FINAL Mary Palanisa my Plasma [facility] . [address] [place] [address]. [id number]. [place] [address] CLIA#45D [id number] 07/07 CMP GFR estim ate ml/min /1.73m 2 36 Low Result based on the eGFR 2020 calculati on.60-89 mL/min/1. 73m^2 without kidney damage may be normal.60 -89 mL/min/1. 73m^2 for 3 months or more, along with kidney damage, may indicate early kidney disease.C alculatio n modified to the 2020 formula effective 01/16/23. FINAL Mary Palanisa my Plasma [facility] . [address] [place] [address]. [id number]. [place] [address] CLIA#45D [id number] 07/07 CMP BUN/C reati nine ratio Ratio 6.0 25.0 14.0 FINAL Mary Palanisa my Plasma [facility] . [address] [place], [place] [address]. [id number]. [place] [address] CLIA#45D [id number] 07/07 CMP Calci um mg/dL 8.5 10.1 9.6 FINAL Mary Palanisa my Plasma [facility] . [address] [place] [address]. [id number]. [place] [address] CLIA#45D [id number] 07/07 CMP Total prote in g/dL 6.4 8.2 6.5 FINAL Mary Palanisa my Plasma [facility] . [address] [place] [address]. [id number]. [place] [address] CLIA#45D [id number] 07/07 CMP Album in g/dL 3.4 5.0 2.9 Low FINAL Mary Palanisa my Plasma [facility] . [address] [place] [address]. [id number]. [place] [address] CLIA#45D [id number] 07/07 CMP A/G ratio Ratio 0.8 2.0 0.8 FINAL Mary Palanisa my Plasma [facility] . [address] [place] [address]. [id number]. [place] [address] CLIA#45D [id number] 07/07 CMP Bilir ubin, total mg/dL 0.2 1.0 0.5 FINAL Mary Palanisa my Plasma [facility] . [address] [place], [place] [address]. [id number]. [place] [address] CLIA#45D [id number] 07/07 CMP Alkal ine phosp hatas e U/L 46.0 116.0 83 FINAL Mary Palanisa my Plasma [facility] . [address] [place] [address] [employer] [facility]. [id number]. [place] [id number] CLIA#45D [id number] 07/07 CMP AST/S GOT U/L 15.0 37.0 22 FINAL Mary Palanisa my Plasma [facility] . [address] [place] [address] [employer] [facility]. [id number]. [place] [id number] CLIA#45D [id number] 07/07 CMP ALT/S GPT U/L 14.0 59.0 24 FINAL Mary Palanisa my Plasma [facility] . [address] [place] [address]. [id number]. [place] [address] CLIA#45D [id number] 07/07 Juliet tin panel Juliet tin ng/mL 8.0 252.0 738 High FINAL Mary Palanisa my Serum [facility] . [address] [place] [address]. [id number]. [place] [address] CLIA#45D [id number] 07/07 TIBC and perce nt sat w/ iron panel Iron ug/dL 50.0 170.0 75.00 FINAL Mary Palanisa my Serum [facility] . [address] [place] [address]. [id number]. [place] [address] CLIA#45D [id number] 07/07 TIBC and perce nt sat w/ iron panel TIBC ug/dL 250.0 450.0 272.00 FINAL Mary Palanisa my Serum [facility] . [address] [place] [address]. [id number]. [place] [address] CLIA#45D [id number] 07/07 TIBC and perce nt sat w/ iron panel Iron, % satur ation % 20.0 55.0 27.6 FINAL Mary Palanisa my Serum [facility] . [address] [place] [address]. [id number]. [place] [address] CLIA#45D [id number] 07/07 CBC w/aut o diff with refle x WBC 10^3/u l 4.8 10.8 5.5 FINAL Mary Palanisa my Whole Blood [facility] . [address] [place] [address]. [id number]. [place] [address] CLIA#45D [id number] 07/07 CBC w/aut o diff with refle x RBC 10^6/u l 4.2 5.4 3.76 Low FINAL Mary Palanisa my Whole Blood [facility] . [address] [place] [address]. [id number]. [place] [address] CLIA#45D [id number] 07/07 CBC w/aut o diff with refle x HGB g/dl 12.0 16.0 11.3 Low FINAL Mary Palanisa my Whole Blood [facility] . [facility]. [id number]. [place] [address] CLIA#45D [id number] 07/07 CBC w/aut o diff with refle x HCT % 37.0 47.0 35.5 Low FINAL Mary Palanisa my Whole Blood [facility] . [address] [place] [address]. [id number]. [place] [address] CLIA#45D [id number] 07/07 CBC w/aut o diff with refle x MCV fl 81.0 99.0 94.4 FINAL Mary Palanisa my Whole Blood [facility] . [address] [place] [address]. [id number]. [place] [address] CLIA#45D [id number] 07/07 CBC w/aut o diff with refle x MCH pg 27.0 31.0 30.1 FINAL Mary Palanisa my Whole Blood [facility] . [address] [place] [address]. [id number]. [place] [address] CLIA#45D [id number] 07/07 CBC w/aut o diff with refle x MCHC g/dl 33.0 37.0 31.8 Low FINAL Mary Palanisa my Whole Blood [facility] . [address] [place] [address]. [id number]. [place] [address] CLIA#45D [id number] 07/07 CBC w/aut o diff with refle x RDW % 10.5 14.5 13.2 FINAL Mary Palanisa my Whole Blood [facility] . [address] [place] [address]. [id number]. [place] [address] CLIA#45D [id number] 07/07 CBC w/aut o diff with refle x PLT 10^3/u l 130.0 400.0 277 FINAL Mary Palanisa my Whole Blood [facility] . [address] [place] [address] [employer] [facility]. [id number]. [place] [address] CLIA#45D [id number] 07/07 CBC w/aut o diff with refle x MPV fl 9.4 12.3 10.3 FINAL Mary Palanisa my Whole Blood [facility] . [address] [place] [address]. [id number]. [place] [address] CLIA#45D [id number] 07/07 CBC w/aut o diff with refle x Jordy % % 40.0 77.0 44.9 FINAL Mary Palanisa my Whole Blood [facility] . [address] [place] [address]. [id number]. [place] [address] CLIA#45D [id number] 07/07 CBC w/aut o diff with refle x Jordy # (ANC) 10^3/u l 1.5 6.5 2.5 FINAL Mary Palanisa my Whole Blood [facility] . [address] [place] [address]. [id number]. [place] [address] CLIA#45D [id number] 07/07 CBC w/aut o diff with refle x LY % % 15.0 41.0 29.0 FINAL Mary Palanisa my Whole Blood [facility] . [address] [place] [address]. [id number]. [place] [address] CLIA#45D [id number] 07/07 CBC w/aut o diff with refle x LY # 10^3/u l 1.2 3.4 1.6 FINAL Mary Palanisa my Whole Blood [facility] . [address] [place] [address]. [id number]. [place] [address] CLIA#45D [id number] 07/07 CBC w/aut o diff with refle x MO % % 3.0 11.0 11.6 High FINAL Mary Palanisa my Whole Blood [facility] . [address] [place] [address]. [id number]. [place] [address] CLIA#45D [id number] 07/07 CBC w/aut o diff with refle x MO # 10^3/u l 0.0 1.0 0.6 FINAL Mary Palanisa my Whole Blood [facility] . [address] [place] [address]. [id number]. [place] [address] CLIA#45D [id number] 07/07 CBC w/aut o diff with refle x EO % % 0.0 3.0 12.5 High FINAL Mary Palanisa my Whole Blood [facility] . [address] [place] [address]. [id number]. [place] [id number] CLIA#45D [id number] 07/07 CBC w/aut o diff with refle x EO # 10^3/u L 0.0 0.3 0.7 High FINAL Mary Palanisa my Whole Blood [facility] . [address] [place] [address]. [id number]. [place] [address] CLIA#45D [id number] 07/07 CBC w/aut o diff with refle x BA % % 0.0 1.0 0.9 FINAL Mary Palanisa my Whole Blood [facility] . [address] [place] [address]. [id number]. [place] [address] CLIA#45D [id number] 07/07 CBC w/aut o diff with refle x BA # 10^3/u L 0.0 0.2 0.1 FINAL Mary Palanisa my Whole Blood [facility] . [address] [place] [address]. [id number]. [place] [id number] CLIA#45D [id number] 07/07 CBC w/aut o diff with refle x IG % % 0.0 0.5 1.10 High FINAL Mary Palanisa my Whole Blood [facility] . [address] [place] [address]. [id number]. [place] [address] CLIA#45D [id number] 07/07 CBC w/aut o diff with refle x IG # 10^3/u L 0.0 0.03 0.06 High FINAL Mary Palanisa my Whole Blood [facility] . [address] [place] [address]. [id number]. [place] [address] CLIA#45D [id number] 07/07 CBC w/aut o diff with refle x NRBC, % % 0.0 0.2 0.0 FINAL Mary Palanisa my Whole Blood [facility] . [address] [place] [address]. [id number]. [facility] [address] CLIA#45D [id number] 07/07 CBC w/aut o diff with refle x NRBC, absol jose, x 10^3/ uL 10^3/u L 0.0 0.012 0.000 FINAL Mary Palanisa my Whole Blood [facility] . [address]. [id number]. [place] [id number] CLIA#45D [id number] 07/07 [place] /rodriguez da with K/L ratio , free, serum (mg/d L) [place] [employer] , free mg/L 3.3 19.4 45.9 High FINAL Mary Palanisa [facility] [place] [address] [address] 12[place] [address] 07/07 [place] /rodriguez da with K/L ratio , free, serum (mg/d L) [place] [employer] , free mg/L 5.7 26.3 26.5 High FINAL Mary Palanisa [facility] [place] [address] [address] 12[place] [address] 07/07 [place] /rodriguez da with K/L ratio , free, [...] FINAL Mary Palanisa [facility] [place] [address] [address] 12[place] [address] 10/27 CMP Sodiu m mmol/L 136.0 145.0 140 FINAL Mary Palanisa my Plasma [facility] . [address] [place] [address] [employer] [facility]. [id number]. [place] [id number] CLIA#45D [id number] 10/27 CMP Potas sium mmol/L 3.5 5.1 4.7 FINAL Mary Palanisa my Plasma [facility] . [address] [place], [place] [address]. [id number]. [place] [id number] CLIA#45D [id number] 10/27 CMP Chlor loly mmol/L 97.0 107.0 103 FINAL Mary Palanisa my Plasma [facility] . [address] [place] [address] [employer] [facility]. [id number]. [place] [id number] CLIA#45D [id number] 10/27 CMP CO2 mmol/L 21.0 32.0 25 FINAL Mary Palanisa my Plasma [facility] . [address] [place], [place] [address]. [id number]. [place] [id number] CLIA#45D [id number] 10/27 CMP Gluco se mg/dL 74.0 106.0 88 FINAL Mary Palanisa my Plasma [facility] . [address] [place] [address] [employer] [facility]. [id number]. [facility] [address] CLIA#45D [id number] 10/27 CMP BUN mg/dL 7.0 18.0 26 High FINAL Mary Palanisa my Plasma [facility] . [address] [place], [place] [address]. [id number]. [place] [id number] CLIA#45D [id number] 10/27 CMP Creat inine , mg/dL mg/dL 0.55 1.3 1.08 FINAL Mary Palanisa my Plasma [facility] . [address] [place] [address] [employer] [facility]. [id number]. [place] [phone] CLIA#45D [id number] 10/27 CMP GFR estim ate ml/min /1.73m 2 53 Low Result based on the eGFR 2020 calculati on.60-89 mL/min/1. 73m^2 without kidney damage may be normal.60 -89 mL/min/1. 73m^2 for 3 months or more, along with kidney damage, may indicate early kidney disease.C alculatio n modified to the 2020 formula effective 01/16/23. FINAL Mary Palanisa my Plasma [facility] . [address] [place] [address]. [id number]. [place] [address] CLIA#45D [id number] 10/27 CMP BUN/C reati nine ratio Ratio 6.0 25.0 24.1 FINAL Mary Palanisa my Plasma [facility] . [address] [place] [address]. [id number]. [place] [address] CLIA#45D [id number] 10/27 CMP Calci um mg/dL 8.5 10.1 8.8 FINAL Mary Palanisa my Plasma [facility] . [address] [place] [address]. [id number]. [place] [address] CLIA#45D [id number] 10/27 CMP Total prote in g/dL 6.4 8.2 6.8 FINAL Mary Palanisa my Plasma [facility] . [address] [place] [address]. [id number]. [place] [address] CLIA#45D [id number] 10/27 CMP Album in g/dL 3.4 5.0 2.7 Low FINAL Mary Palanisa my Plasma [facility] . [address] [place] [address]. [id number]. [place] [address] CLIA#45D [id number] 10/27 CMP A/G ratio Ratio 0.8 2.0 0.7 Low FINAL Mary Palanisa my Plasma [facility] . [address] [place] [address]. [id number]. [place] [address] CLIA#45D [id number] 10/27 CMP Bilir ubin, total mg/dL 0.2 1.0 0.3 FINAL Mary Palanisa my Plasma [facility] . [address] [place] [address] [facility]. [id number]. [place] [address] CLIA#45D [id number] 10/27 CMP Alkal ine phosp hatas e U/L 46.0 116.0 89 FINAL Mary Palanisa my Plasma [facility] . [address]. [id number]. [place] [address] CLIA#45D [id number] 10/27 CMP AST/S GOT U/L 15.0 37.0 18 FINAL Mary Palanisa my Plasma [facility] . [address] [place] [address]. [id number]. [place] [address] CLIA#45D [id number] 10/27 CMP ALT/S GPT U/L 14.0 59.0 19 FINAL Mary Palanisa my Plasma [facility] . [address] [place] [address]. [id number]. [place] [address] CLIA#45D [id number] 10/27 CBC w/aut o diff with refle x WBC 10^3/u l 4.8 10.8 9.7 FINAL Mary Palanisa my Whole Blood [facility] . [address] [place] [address]. [id number]. [place] [address] CLIA#45D [id number] 10/27 CBC w/aut o diff with refle x RBC 10^6/u l 4.2 5.4 3.48 Low FINAL Mary Palanisa my Whole Blood [facility] . [address] [place] [address]. [id number]. [place] [address] CLIA#45D [id number] 10/27 CBC w/aut o diff with refle x HGB g/dl 12.0 16.0 10.0 Low FINAL Mary Palanisa my Whole Blood [facility] . [address] [place] [address]. [id number]. [place] [address] CLIA#45D [id number] 10/27 CBC w/aut o diff with refle x HCT % 37.0 47.0 32.4 Low FINAL Mary Palanisa my Whole Blood [facility] . [address] [place] [address]. [id number]. [place] [address] CLIA#45D [id number] 10/27 CBC w/aut o diff with refle x MCV fl 81.0 99.0 93.1 FINAL Mary Palanisa my Whole Blood [facility] . [address] [place], [place] [address]. [id number]. [place] [address] CLIA#45D [id number] 10/27 CBC w/aut o diff with refle x MCH pg 27.0 31.0 28.7 FINAL Mary Palanisa my Whole Blood [facility] . [address] [place] [address]. [id number]. [place] [address] CLIA#45D [id number] 10/27 CBC w/aut o diff with refle x MCHC g/dl 33.0 37.0 30.9 Low FINAL Mary Palanisa my Whole Blood [facility] . [address] [place] [address]. [id number]. [place] [address] CLIA#45D [id number] 10/27 CBC w/aut o diff with refle x RDW % 10.5 14.5 15.3 High FINAL Mary Palanisa my Whole Blood [facility] . [address] [place] [address]. [id number]. [place] [address] CLIA#45D [id number] 10/27 CBC w/aut o diff with refle x PLT 10^3/u l 130.0 400.0 446 High FINAL Mary Palanisa my Whole Blood [facility] . [address] [place] [address]. [id number]. [place] [address] CLIA#45D [id number] 10/27 CBC w/aut o diff with refle x MPV fl 9.4 12.3 10.2 FINAL Mary Palanisa my Whole Blood [facility] . [address] [place] [address]. [id number]. [place] [address] CLIA#45D [id number] 10/27 CBC w/aut o diff with refle x Jordy % % 40.0 77.0 64.4 FINAL Mary Palanisa my Whole Blood [facility] . [address] [place], [place] [address]. [id number]. [place] [address] CLIA#45D [id number] 10/27 CBC w/aut o diff with refle x Jordy # (ANC) 10^3/u l 1.5 6.5 6.2 FINAL Mary Palanisa my Whole Blood [facility] . [address] [place] [address]. [id number]. [place] [address] CLIA#45D [id number] 10/27 CBC w/aut o diff with refle x LY % % 15.0 41.0 14.6 Low FINAL Mary Palanisa my Whole Blood [facility] . [address] [place] [address]. [id number]. [place] [address] CLIA#45D [id number] 10/27 CBC w/aut o diff with refle x LY # 10^3/u l 1.2 3.4 1.4 FINAL Mary Palanisa my Whole Blood [facility] . [address] [place] [address]. [id number]. [place] [address] CLIA#45D [id number] 10/27 CBC w/aut o diff with refle x MO % % 3.0 11.0 10.7 FINAL Mary Palanisa my Whole Blood [facility] . [address] [place] [address]. [id number]. [place] [address] CLIA#45D [id number] 10/27 CBC w/aut o diff with refle x MO # 10^3/u l 0.0 1.0 1.0 FINAL Mary Palanisa my Whole Blood [facility] . [address] [place] [address]. [id number]. [place] [address] CLIA#45D [id number] 10/27 CBC w/aut o diff with refle x EO % % 0.0 3.0 7.1 High FINAL Mary Palanisa my Whole Blood [facility] . [address] [place] [address]. [id number]. [place] [address] CLIA#45D [id number] 10/27 CBC w/aut o diff with refle x EO # 10^3/u L 0.0 0.3 0.7 High FINAL Mary Palanisa my Whole Blood [facility] . [address] [place] [address]. [id number]. [place] [address] CLIA#45D [id number] 10/27 CBC w/aut o diff with refle x BA % % 0.0 1.0 1.1 High FINAL Mary Palanisa my Whole Blood [facility] . [address] [address] [place], [place] [address]. [id number]. [place] [address] CLIA#45D [id number] 10/27 CBC w/aut o diff with refle x BA # 10^3/u L 0.0 0.2 0.1 FINAL Mary Palanisa my Whole Blood [facility] . [address] [place] [address]. [id number]. [place] [address] CLIA#45D [id number] 10/27 CBC w/aut o diff with refle x IG % % 0.0 0.5 2.10 High FINAL Mary Palanisa my Whole Blood [facility] . [address] [place] [address]. [id number]. [place] [address] CLIA#45D [id number] 10/27 CBC w/aut o diff with refle x IG # 10^3/u L 0.0 0.03 0.20 High FINAL Mary Palanisa my Whole Blood [facility] . [address] [place] [address]. [id number]. [place] [address] CLIA#45D [id number] 10/27 CBC w/aut o diff with refle x NRBC, % % 0.0 0.2 0.0 FINAL Mary Palanisa my Whole Blood [facility] . [address] [place] [address]. [id number]. [place] [address] CLIA#45D [id number] 10/27 CBC w/aut o diff with refle x NRBC, absol jose, x 10^3/ uL 10^3/u L 0.0 0.012 0.000 FINAL Mary Palanisa my Whole Blood [facility] . [address] [place], [place] [address]. [id number]. [place] [address] CLIA#45D [id number] 10/27 Juliet tin panel Juliet tin ng/mL 8.0 252.0 953 High FINAL Mary Palanisa my Serum [facility] . [address] [place] [address] [facility]. [id number]. [place] [address] CLIA#45D [id number] 10/27 TIBC and perce nt sat w/ iron panel Iron ug/dL 50.0 170.0 24.00 Low FINAL Mary Palanisa my Serum [facility] . [address] [place] [address]. [id number]. [place] [address] CLIA#45D [id number] 10/27 TIBC and perce nt sat w/ iron panel TIBC ug/dL 250.0 450.0 202.00 Low FINAL Mary Palanisa my Serum [facility] . [address] [place] [address]. [id number]. [place] [id number] CLIA#45D [id number] 10/27 TIBC and perce nt sat w/ iron panel Iron, % satur ation % 20.0 55.0 11.9 Low FINAL Mary Palanisa my Serum [facility] . [address] [place] [address]. [id number]. [place] [id number] CLIA#45D [id number] 04/26 SPEP with immun ofixa tion Total prote in g/dL 6.1 8.1 7.1 FINAL Mary Palanisa my Serum [facility] [place] [address] [place] [address].[place] [address] 04/26 SPEP with immun ofixa tion NOHEMI inter preta tion Results Below Normal pattern. No monoclona l proteins detected. FINAL Mary Palanisa my Serum [facility] [place] [address] [address] [address] 04/26 SPEP with immun ofixa tion Album in, SPE g/dL 3.8 4.8 3.6 Low FINAL Mary Palanisa my Serum [facility] [place] [address] [place] [address] [address] 04/26 SPEP with immun ofixa tion Alpha -1 globu ashley g/dL 0.2 0.3 0.3 FINAL Mary Palanisa my Serum [facility] [place] [address] [address] 12[place] [address] 04/26 SPEP with immun ofixa tion Alpha -2 globu ashley g/dL 0.5 0.9 0.8 FINAL Mary Palanisa my Serum [facility] [place] [address] [place] 12[place] [address] 04/26 SPEP with immun ofixa tion Beta- 1 g/dL 0.4 0.6 0.5 FINAL Mary Palanisa my Serum [facility]2 [address] [place] [address] [place] [address] [address] 04/26 SPEP with immun ofixa tion Beta- 2 g/dL 0.2 0.5 0.4 FINAL Mary Palanisa my Serum [facility]2 [address] [place] [address] [place] 12[place] [address] 04/26 SPEP with immun ofixa tion Gamma globu ashley g/dL 0.8 1.7 1.5 FINAL Mary Palanisa my Serum [facility]2 [address] [place] [address] [address] [address] 04/26 SPEP with immun ofixa tion SPE inter preta tion Results Below Abnormal appearing globulin peak, possibly monoclona l. If indicated , recommend immunotyp ing (Test Code: [id number]) for further evaluatio n. If the SPEP wasordere d with reflex, immunotyp ing will be resulted upon completio n. FINAL Mary Palanisa my Serum [facility]2 [address] [place] [address] [place] [address] [address] 04/26 Juliet tin panel Juliet tin ng/mL 8.0 252.0 266 High FINAL Mary Palanisa my Serum [facility].[address] [facility] [address] [place] [address] CLIA#45D [id number] 04/26 TIBC and perce nt sat w/ iron panel Iron ug/dL 65.0 175.0 30.0 Low FINAL Mary Palanisa my Serum [facility].[address] [facility] [address] [place] [address] CLIA#45D [id number] 04/26 TIBC and perce nt sat w/ iron panel TIBC ug/dL 250.0 450.0 283.0 FINAL Mary Palanisa my Serum [facility].[address] [facility] [address] [place] [address] CLIA#45D [id number] 04/26 TIBC and perce nt sat w/ iron panel Iron, % satur ation % 15.0 50.0 11 Low FINAL Mary Palanisa my Serum [facility].[address] [facility] [address] [place] [address] CLIA#45D [id number] 04/26 CMP Sodiu m mmol/L 136.0 145.0 140 FINAL Mary Palanisa my Plasma [facility].52 36 [facility] [address] [place] [address] CLIA#45D [id number] 04/26 CMP Potas sium mmol/L 3.5 5.1 4.9 FINAL Mary Palanisa my Plasma [facility].52 36 [facility] e [address] [place] [address] CLIA#45D [id number] 04/26 CMP Chlor loly mmol/L 97.0 107.0 104 FINAL Mary Palanisa my Plasma [facility].52 [address] [facility] it e [address] [place] [address] CLIA#45D [id number] 04/26 CMP CO2 mmol/L 21.0 32.0 26.0 FINAL Mary Palanisa my Plasma [facility].[address] [facility] [address] [place] [address] CLIA#45D [id number] 04/26 CMP Gluco se mg/dL 74.0 106.0 120 High FINAL Mary Palanisa my Plasma [facility].[address] [facility] [address] [place] [address] CLIA#45D [id number] 04/26 CMP BUN mg/dL 7.0 18.0 37 High FINAL Mary Palanisa my Plasma [facility].[address] [facility] it e [address] [place] [address] CLIA#45D [id number] 04/26 CMP Creat inine , mg/dL mg/dL 0.55 1.3 1.42 High FINAL Mary Palanisa my Plasma [facility].[address] [facility] [address] [place] [address] CLIA#45D [id number] 04/26 CMP GFR estim ate mil/mi n/1.73 m2 38 Low Result based on the eGFR 2020 calculati on.60-89 mL/min/1. 73m^2 without kidney damage may be normal.60 -89 mL/min/1. 73m^2 for 3 months or more, along with kidney damage, may indicate early kidney disease.C alculatio n modified to the 2020 formula effective 01/16/23. FINAL Mary Palanisa my Plasma [facility].52 [address] [facility] [address] [place] [address] CLIA#45D [id number] 04/26 CMP BUN/C reati nine ratio 6.0 25.0 26.1 High FINAL Mary Palanisa my Plasma [facility].[address] [facility] [address] [place] [address] CLIA#45D [id number] 04/26 CMP Album in g/dL 3.4 5.0 3.2 Low FINAL Mary Palanisa my Plasma [facility].[address] [facility] [address] [place] [address] CLIA#45D [id number] 04/26 CMP Calci um mg/dL 8.5 10.1 9.1 FINAL Mary Palanisa my Plasma [facility].[address] [facility] [address] [place] [address] CLIA#45D [id number] 04/26 CMP Total prote in g/dL 6.4 8.2 7.8 FINAL Mary Palanisa my Plasma [facility].[address] [facility] [address] [place] [address] CLIA#45D [id number] 04/26 CMP Globu ashley g/dL 2.2 4.2 4.6 High FINAL Mary Palanisa my Plasma [facility].[address] [facility] [address] [place] [address] CLIA#45D [id number] 04/26 CMP A/G ratio 0.8 2.0 0.7 Low FINAL Mary Palanisa my Plasma [facility].[address] [facility] [address] [place] [address] CLIA#45D [id number] 04/26 CMP Bilir ubin, total mg/dL 0.2 1.0 0.5 FINAL Mary Palanisa my Plasma [facility].[address] [facility] [address] [place] [address] CLIA#45D [id number] 04/26 CMP Alkal ine phosp hatas e U/L 46.0 116.0 93 FINAL Mary Palanisa my Plasma [facility].[address] [facility] [address] [place] [address] CLIA#45D [id number] 04/26 CMP AST/S GOT U/L 15.0 37.0 17 FINAL Mary Palanisa my Plasma [facility].[address] [facility] [address] [place] [address] CLIA#45D [id number] 04/26 CMP ALT/S GPT U/L 14.0 59.0 26 FINAL Mary Palanisa my Plasma [facility].52 [address] [facility] [address] [place] [address] CLIA#45D [id number] 04/26 CBC w/aut o diff with refle x WBC 10^3/u L 4.8 10.8 6.4 FINAL Mary Palanisa my Whole Blood [facility].[address] [facility] [address] [place] [address] CLIA#45D [id number] 04/26 CBC w/aut o diff with refle x RBC 10^6/u L 4.2 5.4 4.06 Low FINAL Mary Palanisa my Whole Blood [facility].[address] [facility] [address] [place] [address] CLIA#45D [id number] 04/26 CBC w/aut o diff with refle x HGB g/dL 12.0 16.0 11.1 Low FINAL Mary Palanisa my Whole Blood [facility].[address] [facility] [address] [place] [address] CLIA#45D [id number] 04/26 CBC w/aut o diff with refle x HCT % 37.0 47.0 37.0 FINAL Mary Palanisa my Whole Blood [facility].[address] [facility] [address] [place] [address] CLIA#45D [id number] 04/26 CBC w/aut o diff with refle x MCV fL 81.0 99.0 91.1 FINAL Mary Palanisa my Whole Blood [facility].[address] [facility] [address] [place] [address] CLIA#45D [id number] 04/26 CBC w/aut o diff with refle x MCH pg 27.0 31.0 27.3 FINAL Mary Palanisa my Whole Blood [facility].[address] [facility] [address] [place] [address] CLIA#45D [id number] 04/26 CBC w/aut o diff with refle x MCHC g/dL 33.0 37.0 30.0 Low FINAL Mary Palanisa my Whole Blood [facility].[address] [facility] [address] [place] [address] CLIA#45D [id number] 04/26 CBC w/aut o diff with refle x PLT 10^3/u L 130.0 400.0 256 FINAL Mary Palanisa my Whole Blood [facility].[address] [facility] [address] [place] [address] CLIA#45D [id number] 04/26 CBC w/aut o diff with refle x MPV fL 9.4 12.3 10.7 FINAL Mary Palanisa my Whole Blood [facility].[address] [facility] [address] [place] [address] CLIA#45D [id number] 04/26 CBC w/aut o diff with refle x RDW % 10.5 14.5 15.9 High FINAL Mary Palanisa my Whole Blood [facility].52 [address] [facility] ty e [address] [place] [address] CLIA#45D [id number] 04/26 CBC w/aut o diff with refle x Jordy % % 40.0 77.0 56.0 FINAL Mary Palanisa my Whole Blood [facility].[address] [facility] [address] [place] [address] CLIA#45D [id number] 04/26 CBC w/aut o diff with refle x Jordy # (ANC) 10^3/u L 1.5 6.5 3.57 FINAL Mary Palanisa my Whole Blood [facility].[address] [facility] [address] [place] [address] CLIA#45D [id number] 04/26 CBC w/aut o diff with refle x IG % % 0.0 0.5 0.3 FINAL Mary Palanisa my Whole Blood [facility].[address] [facility] [address] [place] [address] CLIA#45D [id number] 04/26 CBC w/aut o diff with refle x IG # 10^3/u L 0.0 0.03 0.02 FINAL Mary Palanisa my Whole Blood [facility].[address] [facility] [address] [place] [address] CLIA#45D [id number] 04/26 CBC w/aut o diff with refle x LY % % 15.0 41.0 19.6 FINAL Mary Palanisa my Whole Blood [facility].52 [address] [facility] ty e [address] [place] [address] CLIA#45D [id number] 04/26 CBC w/aut o diff with refle x LY # 10^3/u L 1.2 3.4 1.25 FINAL Mary Palanisa my Whole Blood [facility].[address] [facility] [address] [place] [address] CLIA#45D [id number] 04/26 CBC w/aut o diff with refle x MO % % 3.0 11.0 9.7 FINAL Mary Palanisa my Whole Blood [facility].52 [address] [facility] e [address] [place] [address] CLIA#45D [id number] 04/26 CBC w/aut o diff with refle x MO # 10^3/u L 0.0 1.0 0.62 FINAL Mary Palanisa my Whole Blood [facility].[address] [facility] e [address] [place] [address] CLIA#45D [id number] 04/26 CBC w/aut o diff with refle x EO % % 0.0 3.0 13.0 High FINAL Mary Palanisa my Whole Blood [facility].52 [address] [facility] e [address] [place] [address] CLIA#45D [id number] 04/26 CBC w/aut o diff with refle x EO # 10^3/u L 0.0 0.3 0.83 High FINAL Mary Palanisa my Whole Blood [facility].[address] [facility] [address] [place] [address] CLIA#45D [id number] 04/26 CBC w/aut o diff with refle x BA % % 0.0 1.0 1.4 High FINAL Mary Palanisa my Whole Blood [facility].[address] [facility] [address] [place] [address] CLIA#45D [id number] 04/26 CBC w/aut o diff with refle x BA # 10^3/u L 0.0 0.2 0.09 FINAL Mary Palanisa my Whole Blood [facility].[address] [facility] [address] [place] [address] CLIA#45D [id number] 04/26 CBC w/aut o diff with refle x NRBC, % % 0.0 0.2 0.0 FINAL Mary Palanisa my Whole Blood [facility].[address] [facility] [address] [place] [address] CLIA#45D [id number] 04/26 CBC w/aut o diff with refle x NRBC, absol jose, x 10^3/ uL 10^3/u L 0.0 0.01 0.00 FINAL Mary Palanisa my Whole Blood [facility].[address] [facility] [address] [place] [address] CLIA#45D [id number] 04/26 [place] /rodriguez da with K/L ratio , free, serum (mg/d L) [place] light chain , free mg/L 3.3 19.4 86.9 High FINAL Mary Palanisa my Serum [facility] [place] [address] [address] [address] 04/26 [place] /rodriguez da with K/L ratio , free, serum (mg/d L) [place] a light chain , free mg/L 5.7 26.3 37.3 High FINAL Mary Palanisa my Serum [facility]2 [address] [place] [address] [place] [address] [address] 04/26 [place] /rodriguez da with K/L ratio , free, [...] therapy of these disorders . FINAL Mary Rudolph my Serum [facility]2 [address] [place] [address] [place] [address] [address] 11/07 CMP Chlor loly mmol/L 97.0 107.0 106 FINAL [facility].52 [address] [facility] [address] [place] [address] CLIA#45D [id number] 11/07 CMP CO2 mmol/L 21.0 32.0 28.0 FINAL [facility].52 [address] [facility] [address] [place] [address] CLIA#45D [id number] 11/07 CMP Gluco se mg/dL 74.0 106.0 74 FINAL [facility].52 [address] [facility] [address] [place] [address] CLIA#45D [id number] 11/07 CMP BUN mg/dL 7.0 18.0 35 High FINAL [facility].52 [address] [facility] [address] [place] [address] CLIA#45D [id number] 11/07 CMP Creat inine , mg/dL mg/dL 0.55 1.3 1.41 High FINAL [facility].[address] [facility] [address] [place] [address] CLIA#45D [id number] 11/07 CMP GFR estim ate mil/mi n/1.73 m2 38 Low Result based on the eGFR 2020 calculati on.60-89 mL/min/1. 73m^2 without kidney damage may be normal.60 -89 mL/min/1. 73m^2 for 3 months or more, along with kidney damage, may indicate early kidney disease.C alculatio n modified to the 2020 formula effective 01/16/23. FINAL [facility].[address] [facility] [address] [place] [address] CLIA#45D [id number] 11/07 CMP BUN/C reati nine ratio 6.0 25.0 24.8 FINAL [facility].[address] [facility] [address] [place] [address] CLIA#45D [id number] 11/07 CMP Calci um mg/dL 8.5 10.1 9.7 FINAL [facility].[address] [facility] [address] [place] [address] CLIA#45D [id number] 11/07 CMP Album in g/dL 3.4 5.0 3.1 Low FINAL [facility].[address] [facility] [address] [place] [address] CLIA#45D [id number] 11/07 CMP Total prote in g/dL 6.4 8.2 7.3 FINAL [facility].[address] [facility] [address] [place] [address] CLIA#45D [id number] 11/07 CMP Globu ashley g/dL 2.2 4.2 4.2 FINAL [facility].[address] [facility] [address] [place] [address] CLIA#45D [id number] 11/07 CMP A/G ratio 0.8 2.0 0.7 Low FINAL [facility].[address] [facility] [address] [place] [address] CLIA#45D [id number] 11/07 CMP Bilir ubin, total mg/dL 0.2 1.0 0.6 FINAL [facility].[address] [facility] e [address] [place] [address] CLIA#45D [id number] 11/07 CMP Alkal ine phosp hatas e U/L 46.0 116.0 100 FINAL [facility].[address] [facility] [address] [place] [address] CLIA#45D [id number] 11/07 CMP AST/S GOT U/L 15.0 37.0 26 FINAL [facility].[address] [facility] [address] [place] [address] CLIA#45D [id number] 11/07 CMP ALT/S GPT U/L 14.0 59.0 27 FINAL [facility].52 [address] [facility] [address] [place] [address] CLIA#45D [id number] 11/07 CMP Sodiu m mmol/L 136.0 145.0 143 FINAL [facility].52 [address] [facility] [address] [place] [address] CLIA#45D [id number] 11/07 CMP Potas sium mmol/L 3.5 5.1 4.3 FINAL [facility].52 [address] [facility] [address] [place] [address] CLIA#45D [id number] 11/07 TIBC and perce nt sat w/ iron panel Iron ug/dL 50.0 170.0 60.0 FINAL [facility].[address] [facility] [address] [place] [address] CLIA#45D [id number] 11/07 TIBC and perce nt sat w/ iron panel TIBC ug/dL 250.0 450.0 311.0 FINAL [facility].52 [address] [facility] [address] [place] [address] CLIA#45D [id number] 11/07 TIBC and perce nt sat w/ iron panel Iron, % satur ation % 15.0 50.0 19 FINAL [facility].52 [address] [facility] [address] [place] [address] CLIA#45D [id number] 11/07 Juliet tin panel Juliet tin ng/mL 8.0 252.0 228 FINAL Tayler Jacobs Serum [facility].[address] [facility] [address] [place] [address] CLIA#45D [id number] 11/07 SPEP with immun ofixa tion Total prote in g/dL 6.1 8.1 6.4 FINAL [facility] Serum [facility].[address] [place] [address] [address] [address] 11/07 SPEP with immun ofixa tion NOHEMI inter preta tion Results Below Normal pattern. No monoclona l proteins detected. FINAL Luis Brown Serum [facility].[address] [place] [address] [address] [address] 11/07 SPEP with immun ofixa tion Album in, SPE g/dL 3.8 4.8 3.4 Low FINAL [facility] Serum [facility].[address] [place] [address] [address] [address] 11/07 SPEP with immun ofixa tion Alpha -1 globu ashley g/dL 0.2 0.3 0.3 FINAL [facility] [place] [address] [address] [address] 11/07 SPEP with immun ofixa tion Alpha -2 globu ashley g/dL 0.5 0.9 0.7 FINAL [facility] Serum [facility].[address] [place] [address] [address] [address] 11/07 SPEP with immun ofixa tion Beta- 1 g/dL 0.4 0.6 0.4 FINAL [facility] Serum [facility].[address] [place] [address] [place] [address] [address] 11/07 SPEP with immun ofixa tion Beta- 2 g/dL 0.2 0.5 0.4 FINAL [facility] Serum [facility].[address] [place] [address] [address] [address] 11/07 SPEP with immun ofixa tion Gamma globu ashley g/dL 0.8 1.7 1.1 FINAL [facility].[address] [place] [address] [place] [address] [address] 11/07 SPEP with immun ofixa tion SPE inter preta tion Results Below Abnormal appearing gamma globulin peak, possibly monoclona l. If indicated ,recommen d immunotyp ing (Test Code: IMTYPB) for further evaluatio n. If the SPEPwas ordered with reflex, immunotyp ing will be resulted upon completio n. FINAL Luis [facility] Serum [facility].[address] [place] [address] [place] [address] [address] 11/07 [place] /rodriguez da with K/L ratio , free, serum (mg/d L) [place] light chain , free mg/L 3.3 19.4 73.5 High FINAL Luis [facility].[address] [place] [address] [place] [address] [address] 11/07 [place] /rodriguez da with K/L ratio , free, serum (mg/d L) [place] a light chain , free mg/L 5.7 26.3 35.8 High FINAL [facility] Serum [facility].[address] [place] [address] [place] [address] [address] 11/07 [place] /rodriguez da with K/L ratio , free, [...] therapy of these disorders . FINAL Luis [facility] Serum [facility].[address] [place] [address] [place] [address] [address] 11/07 CBC w/aut o diff with refle x WBC 10^3/u L 4.8 10.8 4.6 Low FINAL Luis Tucker Whole Blood [facility].[address] [place] [address] CLIA#45D [id number] 11/07 CBC w/aut o diff with refle x RBC 10^6/u L 4.2 5.4 4.23 FINAL Luis Tucker Whole Blood [facility].[address] [place] [address] CLIA#45D [id number] 11/07 CBC w/aut o diff with refle x HGB g/dL 12.0 16.0 12.4 FINAL Luis Tucker Whole Blood [facility].[address] [place] [address] CLIA#45D [id number] 11/07 CBC w/aut o diff with refle x HCT % 37.0 47.0 40.8 FINAL Luis Tucker Whole Blood [facility].[address] [place] [address] CLIA#45D [id number] 11/07 CBC w/aut o diff with refle x MCV fL 81.0 99.0 96.5 FINAL Luis Tucker Whole Blood [facility].[address] [place] [address] CLIA#45D [id number] 11/07 CBC w/aut o diff with refle x MCH pg 27.0 31.0 29.3 FINAL Luis Tucker Whole Blood [facility].[address] [place] [address] CLIA#45D [id number] 11/07 CBC w/aut o diff with refle x MCHC g/dL 33.0 37.0 30.4 Low FINAL Luis Tucker Whole Blood [facility].[address] [place] [address] CLIA#45D [id number] 11/07 CBC w/aut o diff with refle x PLT 10^3/u L 130.0 400.0 216 FINAL Luis Tucker Whole Blood [facility].[address] [place] [address] CLIA#45D [id number] 11/07 CBC w/aut o diff with refle x MPV fL 9.4 12.3 10.3 FINAL Luis Tucker Whole Blood [facility].[address] [place] [address] CLIA#45D [id number] 11/07 CBC w/aut o diff with refle x RDW % 10.5 14.5 14.0 FINAL Luis Tucker Whole Blood [facility].[address] [facility] [address] e [address] [place] [address] CLIA#45D [id number] 11/07 CBC w/aut o diff with refle x Jordy % % 40.0 77.0 59.7 FINAL Luis [facility] Whole Blood [facility].[address] [place] [address] [address] CLIA#45D [id number] 11/07 CBC w/aut o diff with refle x Jordy # (ANC) 10^3/u L 1.5 6.5 2.73 FINAL Luis [facility] Whole Blood [facility].[address] [place] [address] [address] CLIA#45D [id number] 11/07 CBC w/aut o diff with refle x IG % % 0.0 0.5 0.4 FINAL Luis Tucker Whole Blood [facility].[address] [place] [address] [address] CLIA#45D [id number] 11/07 CBC w/aut o diff with refle x IG # 10^3/u L 0.0 0.03 0.02 FINAL Luis Tucker Whole Blood [facility].[address] [place] [address] [address] CLIA#45D [id number] 11/07 CBC w/aut o diff with refle x LY % % 15.0 41.0 19.0 FINAL Luis Brown Whole Blood [facility].[address] [place] [address] [address] CLIA#45D [id number] 11/07 CBC w/aut o diff with refle x LY # 10^3/u L 1.2 3.4 0.87 Low FINAL Luis Brown Whole Blood [facility].[address] [place] [address] [address] CLIA#45D [id number] 11/07 CBC w/aut o diff with refle x MO % % 3.0 11.0 9.8 FINAL Luis Brown Whole Blood [facility].[address] [place] [address] [address] CLIA#45D [id number] 11/07 CBC w/aut o diff with refle x MO # 10^3/u L 0.0 1.0 0.45 FINAL Luis Brown Whole Blood [facility].[address] [place] [address] [address] CLIA#45D [id number] 11/07 CBC w/aut o diff with refle x EO % % 0.0 3.0 9.6 High FINAL Luis Brown Whole Blood [facility].[address] [facility] [address] e [address] [address] CLIA#45D [id number] 11/07 CBC w/aut o diff with refle x EO # 10^3/u L 0.0 0.3 0.44 High FINAL Luis Brown Whole Blood [facility].[address] [place] [address] [address] CLIA#45D [id number] 11/07 CBC w/aut o diff with refle x BA % % 0.0 1.0 1.5 High FINAL Luis Brown Whole Blood [facility].[address] [place] [address] [address] CLIA#45D [id number] 11/07 CBC w/aut o diff with refle x BA # 10^3/u L 0.0 0.2 0.07 FINAL [facility] Blood [facility].[address] [facility] [address] [place] [address] CLIA#45D [id number] 11/07 CBC w/aut o diff with refle x NRBC, % % 0.0 0.2 0.0 FINAL [facility] Blood [facility].[address] [facility] [facility] [address] [address] CLIA#45D [id number] 11/07 CBC w/aut o diff with refle x NRBC, absol jose, x 10^3/ uL 10^3/u L 0.0 0.01 0.00 FINAL [facility] Blood [facility].[address] [facility] [facility] [address] [address] CLIA#45D [id number] Medications Date Name Route Dose Frequency Instructions [...] iron Active Vital Signs Date Type Value 07/07/2023 Body Temperature 97.70 07/07/2023 Heart Beat [...] 11/07/2024 Heart Beat 91.00 Notes Section * [facility] Follow Up - [facility] [address] [address] P:?? PATIENT:??JAMESON DOTSON :??1945 Date of Service:??07/07/2023 Referring Provider: Edmond Villarreal MD/Kadeem Aguayo MD Chief Complaint: Follow-up of MGUS??and iron deficiency anemia Principal Diagnosis: * Monoclonal gammopathy of uncertain significance (disorder) ( First record:11/27/2020 Last record:12/13/2020; ICD-10:D47.2 ;Monoclonal gammopathy ) Diagnosis*: Monoclonal gammopathy and anemia Treatment History: Iron Sucrose (Venofer) weekly[Assoc Dx: Iron deficiency anemia (disorder) LOT: 2nd Line ] Treatment History*: Pathology: History of Present Illness: 78-year-old woman, with past medical history of hypertension, hypothyroidism, GERD, hyperlipidemia,depression, CHF, on dual antiplatelet therapy, COPD, former smoker, quit in 2002, developed renal insufficiency and proteinuria.?? She was seen by assembly line leader and work-up revealed the presence of monoclonal gammopathy with a ratio of 2, kappa restricted, hence prompting the referral.?? These labs were from 10/22/2020. She is asymptomatic and remains in her baseline status of health. 01/21/23:??Venofer 300 mg x 5 doses, completed on 02/22/2023 Interval History: 07/07/23: Patient presents today accompanied by her for follow-up of MGUS and iron deficiency anemia. She reports her energy is getting better. ??She is recovering from hiatal hernia surgery??on 06/28/2023. ??She denies any GI symptoms.?? She has generalized/joint pain related to??arthritis, followed by pain specialist, on??pain pump. She gets SOB with increased exertion but not at rest.?? She denies any??abnormal bleed including melena or hematochezia. Past Medical History: Hypertension, hypothyroidism, GERD, hyperlipidemia, depression, CHF, on dual antiplatelet therapy, COPD, former smoker, quit in 2002, proteinuria and mild renal insufficiency followed by assembly line leader Past Surgical History: ? 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 History: Medications: {Medications reviewed and reconciled with patient.} * Atorvastatin Oral 10 mg tablet 1 TABLET(S) PO daily * Omeprazole Oral Delayed Release Tablet 20 mg tablet,delayed release (DR/EC) 1 TABLET(S), ENTERIC COATED PO daily * Spironolactone Oral 25 mg tablet 1 TABLET(S) PO daily * Aspirin Oral 81 mg 1 TABLET(S) PO daily * Uaffzmqsxet-Cadqwyelq-Ntuhvcor Inhaler 100 mcg-62.5 mcg-25 mcg/actuation 100-62.5-25 mcg blister with device 1 INHALATION(S) By inhalation as directed * Paroxetine Oral 40 mg tablet 1 TABLET(S) PO daily * Levothyroxine Oral 25 mcg tablet 1 TABLET(S) PO daily Medications*: Allergies: * Sulfa (Sulfonamide Antibiotics) Allergies*: Smoking Status: Smoking Tobacco : none found; Smokeless Tobacco : none found; Vaping : none found Social History: No history of smoking or alcohol abuse.?? She has 3 adult children.?? 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 Family History*: Her mother had lymphoma ROS: Pertinent positives as noted in HPI. ??Otherwise the rest of 12 point ROS are negative. Vitals: Height: 62 in; Weight: 180 lb; Blood pressure: 124/59, Pulse: 94, Temperature: 97.7 F, Respirations: 16, Pain Scale: 3 Karnofsky: 90% (Date: 07/07/2023) Physical Exam: CONSTITUTIONAL: Alert [...] or popliteal basins?? MSK: normal gait, no clubbing/cyanosis,??right lower extremity with mild??edema and covered with dry bandage. SKIN: no rashes noted NEURO:CN II-XII intact grossly, no focal neurologic deficits?? PSYCH: normal mood Labs: LabResults 07/07/2023 04/08/2023 12/30/2022 06/24/2022 06/24/2021 CBC WBC x 10^3/uL 5.5 5.9 4.9 4.2 (L) 4.6 (L) 4.4 (L) RBC x 10^6/uL 3.76 (L) 3.90 (L) 3.66 (L) 3.76 (L) 3.83 (L) 3.85 (L) NRBC, absolute, x 10^3/uL 0.000 0.000 0.000 0.000 0.000 NRBC, % 0.0 0.00 0.00 0.00 0.00 HGB g/dL 11.3 (L) 12.0 10.6 (L) 11.0 (L) 11.3 (L) 9.8 (L) HCT % 35.5 (L) 38.2 33.8 (L) 34.9 (L) 35.3 (L) 32.6 (L) MCV fL 94.4 97.9 92.3 92.8 92.2 84.7 MCH pg 30.1 30.8 29.0 29.3 29.5 25.5 (L) MCHC g/dL 31.8 (L) 31.4 (L) 31.4 (L) 31.5 (L) 32.0 (L) 30.1 (L) RDW % 13.2 15.8 (H) 14.3 13.7 15.3 (H) 14.6 (H) PLT x 10^3/uL 277 234 294 224 219 299 MPV fL 10.3 10.4 10.1 10.7 10.5 11.1 Jordy % 44.9 60.9 43.4 45.7 LY % 29.0 24.4 31.7 34.5 MO % 11.6 (H) 9.4 13.6 (H) 12.0 (H) EO % 12.5 (H) 2.6 9.3 (H) 6.3 (H) IG % 1.10 (H) 1.20 (H) 0.60 (H) 0.20 Jordy # (ANC) x 10^3/uL 2.5 3.6 2.1 2.1 BA % 0.9 1.5 (H) 1.4 (H) 1.3 (H) MO # x 10^3/uL 0.6 0.6 0.7 0.6 EO # x 10^3/uL 0.7 (H) 0.2 0.5 (H) 0.3 BA # x 10^3/uL 0.1 0.1 0.1 0.1 IG # x 10^3/uL 0.06 (H) 0.07 (H) 0.03 0.01 LY # x 10^3/uL 1.6 1.4 1.5 1.6 Auto CBC comments See Manual Diff See Manual Diff LabResults 07/07/2023 04/08/2023 12/30/2022 06/24/2022 06/24/2021 Chemistries Glucose mg/dL 107 102 99 144 (H) BUN mg/dL 23 (H) 24 25 (H) 18 Creatinine mg/dL 1.44 (H) Creatinine, mg/dL 1.56 (H) 1.53 (H) 1.41 (H ) BUN/Creatinine ratio 14.7 17 16.3 12.8 Sodium mmol/L 138 143 141 143 Potassium mmol/L 3.8 5.1 3.7 3.8 Chloride mmol/L 101 105 103 106 CO2 mmol/L 30 29 30 27 Anion gap, mmol/L 14 Calcium mg/dL 8.7 9.4 9.0 8.7 Albumin g/dL 2.9 (L) 3.7 3.4 3.2 (L) Total protein g/dL 7.1 6.4 7.2 6.8 Globulin g/dL 2.7 A/G ratio 0.7 (L) 1.4 0.9 0.9 Bilirubin, total mg/dL 0.6 0.5 0.7 0.5 Alkaline phosphatase U/L 99 92 92 96 AST/SGOT U/L 18 14 20 16 ALT/SGPT U/L 21 8 20 18 GFR estimate mL/min/1.73m2 32 (L) 38 (L) 33 (L) 37 (L) ? Labs*: Imaging: Problem List: * [...] (finding) ( ICD-10:R80.9 ;Proteinuria, unspecified ) Impression: Impression and Plan: 1.?? Monoclonal gammopathy of undetermined significance.?? Labs obtained on 10/22/2020 showed mild abnormality in serum light chain assay, kappa restricted with a ratio of 2.59.?? SPEP and NOHEMI were normal.?? Repeat testing shows that the kappa lambda light chain ratio remains stable but slightly abnormal.?? Based on the above labs a monoclonal gammopathy of undetermined significance is suspected.?? Explained that this is a premalignant condition with a potential to progress to either a plasma cell dyscrasias ,?? B lymphocyte malignancy or amyloidosis.?? Will obtain further evaluation with serum immunofixation electrophoresis and serum light chain assay.?? The rate of progression of this premalignantcondition is about 1 to 2 %/year.?? At this point based on clinical evaluation, there is no suspicion for an overtly malignant plasma cell or lymphocyte disorder.?? There is currently no recommended treatment for monoclonal gammopathy of undetermined significance.?? However given the potential to progress and the potential for endorgan damage that can happen if there is progression, would recommend monitoring of the monoclonal spike at 6- month to yearly intervals to ensure that the M spike remained stable, and that no treatment is needed. -We will recheck levels on??today. 2.?? Anemia.?Multifactorial. ??Anemia of chronic disease and renal insufficiency??and iron deficiency. ??She is not a candidate for darbepoetin.?She was found to have??low iron??6 months ago, no clinical evidence of GI bleeding. she is??on aspirin, plavix was discontinued few months after thestent.?She has not had a colonoscopy in??several years, but??she had a Cologuard test in 2020 which turned out to be normal.?? She is not having any abdominal symptoms.?? She is not responding well to oral iron and could be due to omeprazole. -Cologuard came back positive. ??She was scheduled for endoscopy and??colonoscopy on 04/21/2023. 3.?Iron deficiency anemia: She has completed 5 doses of IV iron on 02/22/2023.?? She had a good response.?? -Reviewed CBC result today which showed hemoglobin mildly dropped to 11.3 g/dL,??likely related to recent surgery. ??We will recheck iron panel today??and replace??if needed. ??We will continue to monitor. 4.?? Proteinuria/mild renal insufficiency, mild, stable?? 5.?? Other medical problems include hypertension, hypothyroidism, GERD, hyperlipidemia, depression,CHF, on dual antiplatelet therapy, COPD, former smoker, quit in 2002 6.?Pain management: Related to arthritis. ??Followed by pain specialist. ??On??pain pump.?? 7.?Status post hiatal hernia surgery: Recovering well. ??She will continue follow-up with her GI/surgeon for 8.??RTC in 3 months for reevaluation with repeat labs. . This note was created using a voice-recognition transcribing system. Incorrect words or phrases mayhave been missed during proofreading. Please interpret according. Matt MCCARTNEY ? Send copy of note to: MD Edmond Hicks MD. Electronically signed by Matt MCCARTNEY 07/07/2023 11:04 CDT
--- OUTSIDE RECORDS SUMMARY | 2025-01-28 18:35 | XMS_ITS ---
Author Name Interface, T4Oeuoati lity Address [place] [address] Organization [facility] Address [place] [address] Care Team Providers Care Alley Worker Name Role Phone DorindaMichell pintoe Unavailable Unavailable [...] Iron, TIBC, Ferr itin panel 06/24/2021 LABORDER Penrose/lambda wit h K/L ratio, free, serum (mg/dL) 06/24/2021 LABORDER CBC 06/24/2021 LABORDER CMP 06/24/2021 LABORDER SPEP with immuno fixation 06/24/2021 LABORDER Vitamin B12 and Folate panel 12/24/2021 LABORDER SPEP with immuno fixation 12/24/2021 LABORDER Vitamin B12 and Folate panel 12/24/2021 LABORDER Iron, TIBC, Ferr itin panel 12/24/2021 LABORDER CMP 12/24/2021 LABORDER Iron, TIBC, Ferr itin panel 12/24/2021 LABORDER Penrose/lambda wit h K/L ratio, free, serum (mg/dL) 12/24/2021 LABORDER CBC 06/24/2022 LABORDER CBC 06/24/2022 LABORDER SPEP with immuno fixation 06/24/2022 LABORDER Vitamin B12 and Folate panel 06/24/2022 LABORDER CMP 06/24/2022 LABORDER Iron, TIBC, Ferr itin panel 06/24/2022 LABORDER Penrose/lambda wit h K/L ratio, free, serum (mg/dL) 12/30/2022 LABORDER Iron, TIBC, Ferr itin panel 12/30/2022 LABORDER Vitamin B12 and Folate panel 12/30/2022 LABORDER CMP 12/30/2022 LABORDER Penrose/lambda wit h K/L ratio, free, serum (mg/dL) 12/30/2022 LABORDER CBC 12/30/2022 LABORDER SPEP with immuno fixation 04/08/2023 LABORDER Iron, TIBC, Ferr itin panel 04/08/2023 LABORDER CBC w/ auto diff 07/07/2023 LABORDER Iron, TIBC, Ferr itin panel 07/07/2023 LABORDER CMP 07/07/2023 LABORDER CBC w/ auto diff 07/07/2023 LABORDER Penrose/lambda wit h K/L ratio, free, serum (mg/dL) [...] LABORDER SPEP with immuno fixation 04/26/2024 LABORDER Penrose/lambda wit h K/L ratio, free, serum (mg/dL) 04/26/2024 LABORDER CBC w/auto diff with reflex 11/07/2024 LABORDER SPEP with immuno fixation 11/07/2024 LABORDER CBC w/auto diff with reflex 11/07/2024 LABORDER Penrose/lambda wit h K/L ratio, free, serum (mg/dL) 11/07/2024 LABORDER CMP 11/07/2024 LABORDER Iron, TIBC, Ferr itin panel 05/16/2025 LABORDER CBC w/auto diff with reflex 05/16/2025 LABORDER SPEP with immuno fixation 05/16/2025 LABORDER CMP 05/16/2025 LABORDER Penrose/lambda wit h K/L ratio, free, serum (mg/dL) [...] 252.0 15 FINAL Mary Palanisa my Serum [facility] . [address] [place] [address]. [id number]. [place] [address] CLIA#45D [id number] 06/24 TIBC and perce nt sat w/ iron panel Iron ug/dL 50.0 170.0 34.00 Low FINAL Mary Palanisa my Serum [facility] . [address] [place] [address]. [id number]. [place] [address] CLIA#45D [id number] 06/24 TIBC and perce nt sat w/ iron panel TIBC ug/dL 250.0 450.0 482.00 High FINAL Mary Palanisa my Serum [facility] . [address] [place] [address]. [id number]. [place] [address] CLIA#45D [id number] 06/24 TIBC and perce nt sat w/ iron panel Iron, % satur ation % 20.0 55.0 7.1 Low FINAL Mary Palanisa my Serum [facility] . [address] [place] [address]. [id number]. [place] [address] CLIA#45D [id number] 06/24 SPEP with immun ofixa tion Album in, SPE g/dL 3.1 5.5 3.7 FINAL Mary Palanisa my Serum [facility] [place] [address] 12.Jonathan dennyFormerly [facility] [address] 06/24 SPEP with immun ofixa tion Alpha -1 globu ashley g/dL 0.2 0.5 0.3 FINAL Mary Palanisa my Serum [facility] [place] [address] 12.[place] [address] 06/24 SPEP with immun ofixa tion Alpha -2 globu ashley g/dL 0.4 1.0 0.7 FINAL Mary Palanisa my Serum [facility] [place] [address] 12.[facility] [address] 06/24 SPEP with immun ofixa tion Beta globu ashley g/dL 0.5 1.1 0.9 FINAL Mary Palanisa my Serum [facility] [place] [address] 12.[place] [address] 06/24 SPEP with immun ofixa tion Gamma globu ashley g/dL 0.7 1.5 1.1 FINAL Mary Johnanisa my Serum [facility] [address] [place] [address] [address] 12.[place] [id number] 06/24 SPEP with immun ofixa tion Parap rotei n band, g/dL g/dL None FINAL Mary Johnanisa my Serum [facility] [address] [address] [place] 12[place] [address] 06/24 SPEP with immun ofixa tion Total prote in elect ropho resis g/dL 5.7 8.2 6.7 FINAL Mary Johnanisa my Serum [facility] [address] [address] [address] 12.[place] [id number] 06/24 SPEP with immun ofixa tion SPE inter preta tion Results Below Normal serum total protein with normal electroph oretic pattern. FINAL Mary Johnanisa my Serum [facility] [address] [address] [address] 12.[place] [address] 06/24 SPEP with immun ofixa tion Immun ofixa tion, serum , inter preta tion Results Below No monoclona l peaks detected. FINAL Mary Chisa my Serum [facility] [address] [address] [address] 12.[place] [address] 06/24 Vitam in B12 panel Vitam in B12 pg/mL 211.0 911.0 571 FINAL Mary Johnanisa my Serum [facility] [address] [address] [address] 12[place] [address] 06/24 CMP Sodiu m mmol/L 136.0 145.0 143 FINAL Mary Johnanisa my Plasma [facility] . [address]. [id number]. [facility] [address] CLIA#45D [id number] 06/24 CMP Potas sium mmol/L 3.5 5.1 3.8 FINAL Mary Palanisa my Plasma [facility] . [address]. [id number]. [facility] [address] CLIA#45D [id number] 06/24 CMP Chlor loly mmol/L 97.0 107.0 106 FINAL Mary Palanisa my Plasma [facility] . [address] [place], [place] [address]. [id number]. [facility] [address] CLIA#45D [id number] 06/24 CMP CO2 mmol/L 21.0 32.0 27 FINAL Mary Palanisa my Plasma [facility] . [address] [place], [place] [address]. [id number]. [facility] [address] CLIA#45D [id number] 06/24 CMP Gluco se mg/dL 70.0 110.0 144 High FINAL Mary Palanisa my Plasma [facility] . [address] [place], [place] [address]. [id number]. [place] [address] CLIA#45D [id number] 06/24 CMP BUN mg/dL 7.0 18.0 18 FINAL Mary Palanisa my Plasma [facility] . [address] [place], [place] [address]. [id number]. [place] [address] CLIA#45D [id number] 06/24 CMP Creat inine , mg/dL mg/dL 0.55 1.3 1.41 High FINAL Mary Palanisa my Plasma [facility] . [address] [place], [place] [address]We[employer] [facility]. [id number]. [place] [address] CLIA#45D [id number] 06/24 CMP GFR estim ate ml/min /1.73m 2 37 Low eFR based on CKD-EPI to estimate renal function. If multiply results by 1.159.60- 89 mL/min/1. 73m^2 without kidney damage may be normal.60 -89 mL/min/1. 73m^2 for 3 months or more, along with kidney damage, may indicate early kidney disease.I f , multiply result by 1.159. FINAL Mary Palanisa my Plasma [facility] . [address] [place], [place] [address]. [id number]. [place] [id number] CLIA#45D [id number] 06/24 CMP BUN/C reati nine ratio Ratio 6.0 25.0 12.8 FINAL Mary Palanisa my Plasma [facility] . [address] [place], [place] [address]Treatspace. [id number]. [place] [address] CLIA#45D [id number] 06/24 CMP Calci um mg/dL 8.5 10.1 8.7 FINAL Mary Palanisa my Plasma [facility] . [address] [place] [address]. [id number]. [place] [address] CLIA#45D [id number] 06/24 CMP Total prote in g/dL 6.4 8.2 6.8 FINAL Mary Palanisa my Plasma [facility] . [address] [place] [address]. [id number]. [place] [address] CLIA#45D [id number] 06/24 CMP Album in g/dL 3.4 5.0 3.2 Low FINAL Mary Palanisa my Plasma [facility] . [address] [place] [address]. [place] [address]. [place] [address] CLIA#45D [id number] 06/24 CMP A/G ratio Ratio 0.8 2.0 0.9 FINAL Mary Palanisa my Plasma [facility] . [address] [place] [address]. [id number]. [place] [address] CLIA#45D [id number] 06/24 CMP Bilir ubin, total mg/dL 0.1 1.0 0.5 FINAL Mary Palanisa my Plasma [facility] . [address] [place] [address]. [id number]. [place] [address] CLIA#45D [id number] 06/24 CMP Alkal ine phosp hatas e U/L 46.0 116.0 96 FINAL Mary Palanisa my Plasma [facility] . [address] [place] [address]. [id number]. [place] [address] CLIA#45D [id number] 06/24 CMP AST/S GOT U/L 15.0 37.0 16 FINAL Mary Palanisa my Plasma [facility] . [address] [place] [address]. [id number]. [place] [address] CLIA#45D [id number] 06/24 CMP ALT/S GPT U/L 14.0 59.0 18 FINAL Mary Palanisa my Plasma [facility] . [address] [place], [place] [address]y [facility]. [id number]. [place] [id number] CLIA#45D [id number] 06/24 Penrose /robbins da with K/L ratio , free, serum (mg/d L) Penrose light chain , free, serum , mg/L mg/L 3.3 19.4 64.7 High FINAL Mary Palanisa my Serum [facility] [address] [place] [address] [address] 12[place] [address] 06/24 Penrose /robbins da with K/L ratio , free, serum (mg/d L) Lambd a light chain , free, serum , mg/L mg/L 5.7 26.3 29.2 High FINAL Mary Palanisa my Serum [facility] [address] [place] [address] [address] 12[place] [address] 06/24 Penrose /robbins da with K/L ratio , free, serum (mg/d L) Penrose /Robbins da light chain s, free w/ [...] Mary Palanisa my Serum [facility] [address] [address] [address] 12[place] [address] 06/24 CBC WBC 10^3/u l 4.8 10.8 4.4 Low FINAL Mary Palanisa my Whole Blood [facility] . [address] [facility] [employer] [facility]. [id number]. [facility] [address] CLIA#45D [id number] 06/24 CBC RBC 10^6/u l 4.2 5.4 3.85 Low FINAL Mary Palanisa my Whole Blood [facility] . [address] [place] [address] [employer] [facility]. [id number]. [place] [address] CLIA#45D [id number] 06/24 CBC HGB g/dl 12.0 16.0 9.8 Low FINAL Mary Palanisa my Whole Blood [facility] . [address] [place] [address] [employer] [facility]. [id number]. [place] [address] CLIA#45D [id number] 06/24 CBC HCT % 37.0 47.0 32.6 Low FINAL Mary Palanisa my Whole Blood [facility] . [address] [place], [place] [address]Just around Us [facility]. [id number]. [place] [address] CLIA#45D [id number] 06/24 CBC MCV fl 81.0 99.0 84.7 FINAL Mary Palanisa my Whole Blood [facility] . [address] [place], [place] [address]Just around Us [facility]. [id number]. [place] [address] CLIA#45D [id number] 06/24 CBC MCH pg 27.0 31.0 25.5 Low FINAL Mary Palanisa my Whole Blood [facility] . [address] [place], [place] [address]Just around Us [facility]. [id number]. [place] [address] CLIA#45D [id number] 06/24 CBC MCHC g/dl 33.0 37.0 30.1 Low FINAL Mary Palanisa my Whole Blood [facility] . [address] [place] [address]. [id number]. [place] [address] CLIA#45D [id number] 06/24 CBC RDW % 10.5 14.5 14.6 High FINAL Mary Palanisa my Whole Blood [facility] . [address] [place] [address] [employer] [facility]. [id number]. [place] [address] CLIA#45D [id number] 06/24 CBC PLT 10^3/u l 130.0 400.0 299 FINAL Mary Palanisa my Whole Blood [facility] . [address] [place] [address] [employer] [facility]. [id number]. [place] [address] CLIA#45D [id number] 06/24 CBC MPV fl 9.4 12.3 11.1 FINAL Mary Palanisa my Whole Blood [facility] . [address] [place] [address]. [place] [address]. [place] [address] CLIA#45D [id number] 06/24 CBC Auto CBC comme nts See Manual Diff FINAL Mary Palanisa my Whole Blood [facility] . [address] [place] [address]. [id number]. [place] [address] CLIA#45D [id number] 06/24 Manua l diffe renti al Seg % % 40.0 77.0 41 FINAL Mary Palanisa my Whole Blood [facility] . [address] [place] [address]. [place] [address]. [place] [address] CLIA#45D [id number] 06/24 Manua l diffe renti al Lymph ocyte % % 15.0 41.0 33 FINAL Mary Palanisa my Whole Blood [facility] . [address] [place] [address]. [id number]. [place] [address] CLIA#45D [id number] 06/24 Manua l diffe renti al Monoc yte % % 3.0 11.0 8 FINAL Mary Palanisa my Whole Blood [facility] . [address] [place] [address]. [place] [address]. [place] [address] CLIA#45D [id number] 06/24 Manua l diffe renti al Eosin ophil % % 0.0 3.0 15 High FINAL Mary Palanisa my Whole Blood [facility] . [address] [place] [address]. [place] [address]. [place] [address] CLIA#45D [id number] 06/24 Manua l diffe renti al Basop hil % % 0.0 1.0 3 High FINAL Mary Palanisa my Whole Blood [facility] . [address] [place] [address]. [place] [address]. [place] [address] CLIA#45D [id number] 06/24 Manua l diffe renti al ANC (M) 10^3/U L 1.5 6.5 1.81 FINAL Mary Palanisa my Whole Blood [facility] . [address] [place] [address]. [id number]. [place] [address] CLIA#45D [id number] 06/24 Manua l diffe renti al LY# (M) 10^3/u L 1.2 3.4 1.46 FINAL Mary Palanisa my Whole Blood [facility] . [address] [place] [address]. [id number]. [place] [address] CLIA#45D [id number] 06/24 Manua l diffe renti al MO# (M) 10^3/U L 0.0 1.0 0.35 FINAL Mary Palanisa my Whole Blood [facility] . [address] [place] [address]. [id number]. [place] [address] CLIA#45D [id number] 06/24 Manua l diffe renti al EO# (M) 10^3/U L 0.0 0.3 0.66 High FINAL Mary Palanisa my Whole Blood [facility] . [address] [place] [address]. [id number]. [place] [address] CLIA#45D [id number] 06/24 Manua l diffe renti al Basop hil count (M) 10^3/U L 0.0 0.2 0.13 FINAL Mary Palanisa my Whole Blood [facility] . [address] [place] [address]. [id number]. [place] [address] CLIA#45D [id number] 06/24 Manua l diffe renti al Plate let estim ate 10^3 130.0 400.0 Agrees with Analyze r FINAL Mary Palanisa my Whole Blood [facility] . [address] [place] [address]. [id number]. [place] [address] CLIA#45D [id number] 06/24 Manua l diffe renti al RBC morph Normal FINAL Mary Palanisa my Whole Blood [facility] . [address] [place] [address]. [id number]. [place] [address] CLIA#45D [id number] 06/24 Folat e panel Folat e, serum ng/mL 7.6 FINAL Mary Palanisa Serum [facility] [address] [facility] [address] [place] 12[place] [address] 12/24 TIBC and perce nt sat w/ iron panel Iron ug/dL 50.0 170.0 79.00 FINAL [facility] . [address] [place] [address]. [id number]. [place] [address] CLIA#45D [id number] 12/24 TIBC and perce nt sat w/ iron panel TIBC ug/dL 250.0 450.0 438.00 FINAL [facility] . [address] [place] [address]. [id number]. [place] [address] CLIA#45D [id number] 12/24 TIBC and perce nt sat w/ iron panel Iron, % satur ation % 20.0 55.0 18.0 Low FINAL [facility] . [address] [place] [address]. [id number]. [place] [address] CLIA#45D [id number] 12/24 Juliet tin panel Juliet tin ng/mL 8.0 252.0 29 FINAL [facility] Serum [facility] . [address] [place] [address]. [id number]. [place] [address] CLIA#45D [id number] 12/24 CBC WBC 10^3/u l 4.8 10.8 4.6 Low FINAL [facility] Whole Blood [facility] . [address] [place] [address]. [id number]. [place] [address] CLIA#45D [id number] 12/24 CBC RBC 10^6/u l 4.2 5.4 3.83 Low FINAL [facility] Whole Blood [facility] . [address] [place] [address]. [id number]. [place] [address] CLIA#45D [id number] 12/24 CBC HGB g/dl 12.0 16.0 11.3 Low FINAL [facility] Whole Blood [facility] . [address] [place] [address]. [id number]. [place] [address] CLIA#45D [id number] 12/24 CBC HCT % 37.0 47.0 35.3 Low FINAL Roxi Kelleywith Whole Blood [facility] . [address] [place], [place] [address]Just around Us [facility]. [id number]. [facility] [address] CLIA#45D [id number] 12/24 CBC MCV fl 81.0 99.0 92.2 FINAL Roxi Kelleywith Whole Blood [facility] . [address] [place] [address]. [id number]. [place] [address] CLIA#45D [id number] 12/24 CBC MCH pg 27.0 31.0 29.5 FINAL Roxi Kelleywith Whole Blood [facility] . [address] [place] [address]. [id number]. [place] [address] CLIA#45D [id number] 12/24 CBC MCHC g/dl 33.0 37.0 32.0 Low FINAL Roxi Kelleywith Whole Blood [facility] . [address] [place] [address]. [place] [address]. [place] [address] CLIA#45D [id number] 12/24 CBC RDW % 10.5 14.5 15.3 High FINAL Roxi Kelleywith Whole Blood [facility] . [address] [place] [address]. [place] [address]. [facility] [address] CLIA#45D [id number] 12/24 CBC PLT 10^3/u l 130.0 400.0 219 FINAL Roxi Kelleywith Whole Blood [facility] . [address] [place] [address]. [place] [address]. [facility] [address] CLIA#45D [id number] 12/24 CBC MPV fl 9.4 12.3 10.5 FINAL Roxi Kelleywith Whole Blood [facility] . [address] [place] [address]. [id number]. [place] [address] CLIA#45D [id number] 12/24 CBC Jordy % % 40.0 77.0 45.7 FINAL Roxi Dorinda Whole Blood [facility] . [address] [place] [address]. [place] [address]. [place] [address] CLIA#45D [id number] 12/24 CBC Jordy # (ANC) 10^3/u l 1.5 6.5 2.1 FINAL Roxi Dorinda Whole Blood [facility] . [address] [place] [address]. [id number]. [place] [address] CLIA#45D [id number] 12/24 CBC LY % % 15.0 41.0 34.5 FINAL Roxi Dorinda Whole Blood [facility] . [address] [place] [address]. [id number]. [place] [address] CLIA#45D [id number] 12/24 CBC LY # 10^3/u l 1.2 3.4 1.6 FINAL Roxi Dorinda Whole Blood [facility] . [address] [place] [address]. [place] [address]. [place] [address] CLIA#45D [id number] 12/24 CBC MO % % 3.0 11.0 12.0 High FINAL Roxi Doirnda Whole Blood [facility] . [address] [place] [address]. [place] [address]. [place] [address] CLIA#45D [id number] 12/24 CBC MO # 10^3/u l 0.0 1.0 0.6 FINAL Roxi Dorinda Whole Blood [facility] . [address] [place] [address]. [place] [address]. [place] [address] CLIA#45D [id number] 12/24 CBC EO % % 0.0 3.0 6.3 High FINAL Roxi Dorinda Whole Blood [facility] . [address] [place] [address]. [place] [address]. [place] [address] CLIA#45D [id number] 12/24 CBC EO # 10^3/u L 0.0 0.3 0.3 FINAL Rxoi Dorinda Whole Blood [facility] . [address] [place] [address]. [place] [address]. [place] [address] CLIA#45D [id number] 12/24 CBC BA % % 0.0 1.0 1.3 High FINAL Roxi Dorinda Whole Blood [facility] . [address] [place] [address]. [place] [address]. [place] [address] CLIA#45D [id number] 12/24 CBC BA # 10^3/u L 0.0 0.2 0.1 FINAL Roxi Dorinda Whole Blood [facility] . [address] [place] [address]. [id number]. [facility] [address] CLIA#45D [id number] 12/24 CBC IG % % 0.0 0.5 0.20 FINAL Roxi Dorinda Whole Blood [facility] . [address] [place] [address]. [id number]. [facility] [address] CLIA#45D [id number] 12/24 CBC IG # 10^3/u L 0.0 0.03 0.01 FINAL Roxi Dorinda Whole Blood [facility] . [address] [place] [address]. [id number]. [facility] [address] CLIA#45D [id number] 12/24 CBC NRBC, % % 0.00 FINAL Roxi Dorinda Whole Blood [facility] . [address] [place] [address]. [id number]. [facility] [address] CLIA#45D [id number] 12/24 CBC NRBC, absol [place], x 10^3/ uL 10^3/u L 0.000 FINAL Roxi Dorinda Whole Blood [facility] . [address] [place] [address]. [place] [address]. [facility] [address] CLIA#45D [id number] 12/24 Vitam in B12 panel Vitam in B12 pg/mL 200.0 1100.0 366 Please note: Although the reference range for Vitamin B12 is 200-1100 pg/mL,it has been reported that between 5-10% of patients with the values 0-400 pg/mL may experienc e neuropsyc hiatric and hematolog ic abnormali ties dueto occult B12 deficienc y, less than 1% of patients with values above 400 pg/mLwill have symptoms. FINAL Roxi Dorinda Serum [facility]2 [address] [facility] [address] 12[place] [address] 12/24 CMP Sodiu m mmol/L 136.0 145.0 141 FINAL Roxi Dorinda Plasma [facility] . [address] [place] [address]. [id number]. [facility] [address] CLIA#45D [id number] 12/24 CMP Potas sium mmol/L 3.5 5.1 3.7 FINAL Roxi Dorinda [facility] . [address] [place] [address]. [id number]. [facility] [address] CLIA#45D [id number] 12/24 CMP Chlor loly mmol/L 97.0 107.0 103 FINAL Roxi [facility] . [address] [place] [address]. [id number]. [facility] [address] CLIA#45D [id number] 12/24 CMP CO2 mmol/L 21.0 32.0 30 FINAL [facility] . [address] [place] [address]. [id number]. [place] [address] CLIA#45D [id number] 12/24 CMP Gluco se mg/dL 70.0 110.0 99 FINAL [facility] . [address] [place] [address]. [id number]. [place] [address] CLIA#45D [id number] 12/24 CMP BUN mg/dL 7.0 18.0 25 High FINAL [facility] . [address] [place] [address]. [id number]. [place] [address] CLIA#45D [id number] 12/24 CMP Creat inine , mg/dL mg/dL 0.55 1.3 1.53 High FINAL [facility] . [address] [place] [address]. [id number]. [place] [id number] CLIA#45D [id number] 12/24 CMP GFR estim ate ml/min /1.73m 2 33 Low eFR based on CKD-EPI to estimate renal function. If multiply results by 1.159.60- 89 mL/min/1. 73m^2 without kidney damage may be normal.60 -89 mL/min/1. 73m^2 for 3 months or more, along with kidney damage, may indicate early kidney disease.I f , multiply result by 1.159. FINAL [facility] . [address] [place] [address]. [id number]. [place] [address] CLIA#45D [id number] 12/24 CMP BUN/C reati nine ratio Ratio 6.0 25.0 16.3 FINAL [facility] . [address] [place] [address]. [id number]. [place] [address] CLIA#45D [id number] 12/24 CMP Calci um mg/dL 8.5 10.1 9.0 FINAL [facility] . [address] [place] [address]. [id number]. [place] [address] CLIA#45D [id number] 12/24 CMP Total prote in g/dL 6.4 8.2 7.2 FINAL [facility] . [address] [place] [address]. [place] [address]. [place] [address] CLIA#45D [id number] 12/24 CMP Album in g/dL 3.4 5.0 3.4 FINAL [facility] . [address] [place] [address]. [place] [address]. [place] [address] CLIA#45D [id number] 12/24 CMP A/G ratio Ratio 0.8 2.0 0.9 FINAL [facility] . [address] [place] [address]. [place] [address]. [place] [address] CLIA#45D [id number] 12/24 CMP Bilir ubin, total mg/dL 0.1 1.0 0.7 FINAL [facility] . [address] [place] [address]. [place] [address]. [place] [address] CLIA#45D [id number] 12/24 CMP Alkal ine phosp hatas e U/L 46.0 116.0 92 FINAL [facility] . [address] [place] [address]. [id number]. [place] [address] CLIA#45D [id number] 12/24 CMP AST/S GOT U/L 15.0 37.0 20 FINAL [facility] . [address] [place] [address]. [place] [address] CLIA#45D [id number] 12/24 CMP ALT/S GPT U/L 14.0 59.0 20 FINAL [facility] . 5236 [facility]. [id number]. [facility] [address] CLIA#[id number] 12/24 Folat e panel Folat e, serum ng/mL 7.2 (Note)Ref erence ranges for adults: Low <3.4 ng/mL Borderlin e 3.4 - 5.4 ng/mL Normal >5.4 ng/mL FINAL Roxi Dorinda [facility] [place] [address] Building 12[place] [address] 12/24 SPEP with immun ofixa tion Album in, SPE g/dL 3.1 5.5 3.7 FINAL Roxi Dor[facility] [place] [address] [place] 12[place] [address] 12/24 SPEP with immun ofixa tion Alpha -1 globu ashley g/dL 0.2 0.5 0.3 FINAL Roxi Dor[facility] [place] [address] [place] 12[place] [address] 12/24 SPEP with immun ofixa tion Alpha -2 globu ashley g/dL 0.4 1.0 0.7 FINAL Roxi Dor[facility] [place] [address] [place] 12[place] [address] 12/24 SPEP with immun ofixa tion Beta globu ashley g/dL 0.5 1.1 0.9 FINAL Roxi Dor[facility] [place] [address] [place] 12[place] [address] 12/24 SPEP with immun ofixa tion Gamma globu ashley g/dL 0.7 1.5 1.0 FINAL Roxi [facility] [place] [address] [place] 12[place] [address] 12/24 SPEP with immun ofixa tion Parap rotei n band, g/dL g/dL None FINAL Roxi [facility] [place] [address] [place] 12[place] [address] 12/24 SPEP with immun ofixa tion Total prote in elect ropho resis g/dL 5.7 8.2 6.5 FINAL Roxi Dor[facility] [place] [address] [place] 12[place] [address] 12/24 SPEP with immun ofixa tion SPE inter preta tion Results Below Normal serum total protein with normal electroph oretic pattern. FINAL Roxi [facility] [address] [address] 12[place] [address] 12/24 SPEP with immun ofixa tion Immun ofixa tion, serum , inter preta tion Results Below No monoclona l peaks detected. FINAL Roxi [facility]2 [address] [address] [place] 12[place] [address] 12/24 Penrose /robbins da with K/L ratio , free, serum (mg/d L) Penrose light chain , free mg/L 3.3 19.4 52.7 High FINAL Roxi [facility]2 [address] [address] [place] 12[place] [address] 12/24 Penrose /robbins da with K/L ratio , free, serum (mg/d L) Lambd a light chain , free mg/L 5.7 26.3 29.0 High FINAL Roxi [facility]2 [address] [address] [place] 12[place] [address] 12/24 Penrose /robbins da with K/L ratio , free, [...] therapy of these disorders . FINAL Roxi [facility]2 [address] [address] [place] 12[place] [address] 12/30 Echoc ardio gram See tooling engineer d 02/17 Mammo graph y See tooling engineer d 02/17 X-ray See tooling engineer d 06/24 TIBC and perce nt sat w/ iron panel Iron mcg/dL 45.0 160.0 55 FINAL Mary Palanisa my [facility]2 [address] [address] [place] 12[place] [address] 06/24 TIBC and perce nt sat w/ iron panel TIBC mcg/dL 250.0 450.0 373 FINAL Mary Palanisa my [facility]2 [address] [address] [place] 12[place] [address] 06/24 TIBC and perce nt sat w/ iron panel Iron, % satur ation % 16.0 45.0 15 Low FINAL Mary Palanisa my [facility]2 [address] [address] [place] 12[place] [address] 06/24 CBC w/ auto diff WBC 10^3/u l 4.8 10.8 4.2 Low FINAL Mary Palanisa my Whole Blood [facility] . [address] [place] [address] [employer] [facility]. [place] [address]. [place] [address] CLIA#[id number] 06/24 CBC w/ auto diff RBC 10^6/u l 4.2 5.4 3.76 Low FINAL Mary Palanisa my Whole Blood [facility] . [address] [place] [address] [employer] [facility]. [place] [address]. [facility] [address] CLIA#[id number] 06/24 CBC w/ auto diff HGB g/dl 12.0 16.0 11.0 Low FINAL Mary Palanisa my Whole Blood [facility] . [address] [place] [address] [employer] [facility]. [id number]. [facility] [address] CLIA#[id number] 06/24 CBC w/ auto diff HCT % 37.0 47.0 34.9 Low FINAL Mary Palanisa my Whole Blood [facility] . [address] [place] [address] [employer] [facility]. [id number]. [place] [address] CLIA#[id number] 06/24 CBC w/ auto diff MCV fl 81.0 99.0 92.8 FINAL Mary Palanisa my Whole Blood [facility] . [address] [place] [address] [employer] [facility]. [id number]. [place] [address] CLIA#[id number] 06/24 CBC w/ auto diff MCH pg 27.0 31.0 29.3 FINAL Mary Palanisa my Whole Blood [facility] . [address] [place] [address] [employer] [facility]. [id number]. [place] [address] CLIA#[id number] 06/24 CBC w/ auto diff MCHC g/dl 33.0 37.0 31.5 Low FINAL Mary Palanisa my Whole Blood [facility] . [address] [place] [address] [employer] [facility]. [id number]. [place] [address] CLIA#45D [id number] 06/24 CBC w/ auto diff RDW % 10.5 14.5 13.7 FINAL Mary Palanisa my Whole Blood [facility] . [address] [place], [place] [address]Just around [employer] [facility]. [id number]. [place] [address] CLIA#[id number] 06/24 CBC w/ auto diff PLT 10^3/u l 130.0 400.0 224 FINAL Mary Palanisa my Whole Blood [facility] . [address] [place], [place] [address]Just around [employer] [facility]. [id number]. [place] [address] CLIA#45D [id number] 06/24 CBC w/ auto diff MPV fl 9.4 12.3 10.7 FINAL Mary Palanisa my Whole Blood [facility] . [address] [place] [address] [employer] [facility]. [id number]. [place] [address] CLIA#[id number] 06/24 CBC w/ auto diff NRBC, % % 0.00 FINAL Mary Palanisa my Whole Blood [facility] . [address] [place], [place] [address]We[employer] [facility]. [id number]. [address] [place] [address] CLIA#[id number] 06/24 CBC w/ auto diff NRBC, absol kwethluk, x 10^3/ uL 10^3/u L 0.000 FINAL Mary Palanisa my Whole Blood [facility] . [address] [place], [place] [address]. [id number]. [facility] [address] CLIA#45D [id number] 06/24 CBC w/ auto diff Auto CBC comme nts See Manual Diff FINAL Mary rodrigues Whole Blood [facility] . [address]. [id number]. [facility] [address] CLIA#[id number] 06/24 Penrose /robbins da with K/L ratio , free, serum (mg/d L) Penrose light chain , free mg/L 3.3 19.4 67.4 High FINAL Mary Chisa lilia [facility] [place] [address] [place] 12[place] [address] 06/24 Penrose /robbins da with K/L ratio , free, serum (mg/d L) Lambd a light chain , free mg/L 5.7 26.3 33.3 High FINAL Mary Johnanisa lilia [facility] [place] [address] [place] 12[place] [address] 06/24 Penrose /robbins da with K/L ratio , free, [...] FINAL Mary Johnanisa lilia [facility] [place] [address] [place] 12[place] [address] 06/24 CMP Gluco se mg/dL 65.0 139.0 102 FINAL Mary Johnanisa lilia [facility] [place] [address] 12.[place] [address] 06/24 CMP BUN mg/dL 7.0 25.0 24 FINAL Mary Palanisa my [facility] [place] [address] [place] 12[place] [address] 06/24 CMP Creat inine mg/dL 0.6 1.0 1.44 High FINAL Mary Palanisa my [facility] [place] [address] [place] 12[place] [address] 06/24 CMP GFR estim ate mL/min /1.73m 2 38 Low FINAL Mary Palanisa my [facility] [place] [address] [place] 12[place] [address] 06/24 CMP BUN/C reati nine ratio 6.0 22.0 17 FINAL Mary Palanisa my [facility] [place] [address] [place] 12[place] [address] 06/24 CMP Sodiu m mmol/L 135.0 146.0 143 FINAL Mary Palanisa my [facility] [place] [address] [place] 12[place] [address] 06/24 CMP Potas sium mmol/L 3.5 5.3 5.1 FINAL Mary Palanisa my [facility] [place] [address] [place] 12[place] [address] 06/24 CMP Chlor loly mmol/L 98.0 110.0 105 FINAL Mary Palanisa my [facility] [place] [address] [place] 12[place] [address] 06/24 CMP CO2 mmol/L 20.0 32.0 29 FINAL Mary Palanisa my [facility] [place] [address] [place] 12[place] [address] 06/24 CMP Anion gap, mmol/ L mmol/L 7.0 17.0 14 FINAL Mary Palanisa my [facility] [place] [address] [place] 12[place] [address] 06/24 CMP Calci um mg/dL 8.6 10.4 9.4 FINAL Mary Palanisa my [facility] [place] [address] [place] 12[place] [address] 06/24 CMP Total prote in g/dL 6.1 8.1 6.4 FINAL Mary Palanisa my [facility]2 [address] [address] [address] 12[place] [address] 06/24 CMP Album in g/dL 3.6 5.1 3.7 FINAL Mary Palanisa my [facility]2 [address] [address] [address] 12[place] [address] 06/24 CMP Globu ashley g/dL 1.9 3.7 2.7 FINAL Mary Palanisa my [facility] [place] [address] [place] 12[place] [address] 06/24 CMP A/G ratio 1.0 2.5 1.4 FINAL Mary Palanisa my [facility] [place] [address] [place] 12[place] [address] 06/24 CMP Bilir ubin, total mg/dL 0.2 1.2 0.5 FINAL Mary Palanisa my [facility] [place] [address] [place] 12[place] [address] 06/24 CMP Alkal ine phosp hatas e U/L 37.0 153.0 92 FINAL Mary Palanisa my [facility] [place] [address] [place] 12[place] [address] 06/24 CMP AST/S GOT U/L 10.0 35.0 14 FINAL Mary Palanisa my [facility] [place] [address] [place] 12[place] [address] 06/24 CMP ALT/S GPT U/L 6.0 29.0 8 FINAL Mary Palanisa my [facility] [place] [address] [place] 12[place] [address] 06/24 Félix aragon al Seg % % 40.0 77.0 42 FINAL Mary Palanisa my Whole Blood [facility] . [address] [place] [address] Drive. [id number]. [place] [id number] CLIA#45D [id number] 06/24 Félix aragon al Lymph ocyte % % 15.0 41.0 38 FINAL Mary Palanisa my Whole Blood [facility] . [address] [place] [address]. [id number]. [address] [place] [address] CLIA#45D [id number] 06/24 Manua l diffe renti al Monoc yte % % 3.0 11.0 11 FINAL Mary Palanisa my Whole Blood [facility] . [address] [place] [address]. [id number]. [address] [place] [address] CLIA#45D [id number] 06/24 Manua l diffe renti al Eosin ophil % % 0.0 3.0 6 High FINAL Mary Palanisa my Whole Blood [facility] . [address] [place] [address]. [id number]. [address] [place] [address] CLIA#45D [id number] 06/24 Manua l diffe renti al Basop hil % % 0.0 1.0 3 High FINAL Mary Palanisa my Whole Blood [facility] . [address] [place] [address]. [id number]. [address] [address] CLIA#45D [id number] 06/24 Manua l diffe renti al ANC (M) 10^3/U L 1.5 6.5 1.74 FINAL Mary Palanisa my Whole Blood [facility] . [address] [place] [address]. [id number]. [address] [place] [address] CLIA#45D [id number] 06/24 Manua l diffe renti al LY# (M) 10^3/u L 1.2 3.4 1.58 FINAL Mary Palanisa my Whole Blood [facility] . [address] [place] [address]. [id number]. [address] [place] [address] CLIA#45D [id number] 06/24 Manua l diffe renti al MO# (M) 10^3/U L 0.0 1.0 0.46 FINAL Mary Palanisa my Whole Blood [facility] . [address] [place] [address]. [id number]. [address] [place] [address] CLIA#45D [id number] 06/24 Manua l diffe renti al EO# (M) 10^3/U L 0.0 0.3 0.25 FINAL Mary Palanisa my Whole Blood [facility] . [address] [place] [address]. [id number]. [address] [place] [address] CLIA#45D [id number] 06/24 Manua jen diffe renti al Basop hil count (M) 10^3/U L 0.0 0.2 0.12 FINAL Mary Palanisa my Whole Blood [facility] . [address] [place] [address]. [id number]. [address] [place] [address] CLIA#45D [id number] 06/24 Manua l diffe renti al Plate let estim ate 10^3 130.0 400.0 Agrees with Analyze r FINAL Mary Palanisa my Whole Blood [facility] . [address] [place] [address]. [id number]. [address] [place] [address] CLIA#45D [id number] 06/24 Eliana jen castilloe renti al RBC morph Normal FINAL Mary Palanisa my Whole Blood [facility] . [address] [place] [address]. [id number]. [address] [place] [address] CLIA#45D [id number] 06/24 Vitam in B12 panel Vitam in B12 pg/mL 200.0 1100.0 446 FINAL Mary Palanisa my [facility] [place] [address] 12.Jonathan [facility]nyFormerly [facility] [address] 06/24 Folat e panel Folat e, serum ng/mL 4.7 (Note)Ref erence ranges for adults: Low <3.4 ng/mL Borderlin e 3.4 - 5.4 ng/mL Normal >5.4 ng/mL FINAL Mary Palanisa my [facility] [place] [address] Building 12.Jonathan [facility] [address] 06/24 Juliet tin panel Juliet tin ng/mL 16.0 288.0 39 FINAL Mary Palanisa my [facility] [place] [address] Building 12.Jonathan [facility] [address] 06/24 SPEP with immun ofixa tion Album in, SPE g/dL 3.1 5.5 3.6 FINAL Mary Palanisa my [facility] [place] [address] [place] 12[place] [address] 06/24 SPEP with immun ofixa tion Alpha -1 globu ashley g/dL 0.2 0.5 0.3 FINAL Mary Palanisa my [facility] [place] [address] [place] 12[place] [address] 06/24 SPEP with immun ofixa tion Alpha -2 globu ashley g/dL 0.4 1.0 0.7 FINAL Mary Palanisa my [facility] [place] [address] [place] 12[place] [address] 06/24 SPEP with immun ofixa tion Beta globu ashley g/dL 0.5 1.1 0.8 FINAL Mray Palanisa my [facility].[address] [place] [address] Building 12[place] [address] 06/24 SPEP with immun ofixa tion Gamma globu ashley g/dL 0.7 1.5 1.0 FINAL Mary Palanisa my [facility] [place] [address] [place] 12[place] [address] 06/24 SPEP with immun ofixa tion Parap rotei n band, g/dL g/dL None FINAL Mary Palanisa my [facility] [place] [address] [place] 12[place] [address] 06/24 SPEP with immun ofixa tion Total prote in elect ropho resis g/dL 5.7 8.2 6.5 FINAL Mary Palanisa my [facility] [place] [address] [place] 12[place] [address] 06/24 SPEP with immun ofixa tion SPE inter preta tion Results Below Abnormal appearing globulin peak, possibly monoclona l. If indicated , recommend immunotyp ing (Test Code: IES) for further evaluatio n. If the SPEP was orderedwi reflex, immunotyp ing will be resulted upon completio n. FINAL Mary Palanisa my [facility] [place] [address] [place] 12[place] [address] 06/24 SPEP with immun ofixa tion Immun ofixa tion, serum , inter preta tion Results Below No monoclona l peaks detected. FINAL Mary Palanisa my [facility]2 [address] [address] [place] 12[place] [address] 12/30 CBC w/ auto diff WBC 10^3/u l 4.8 10.8 4.9 FINAL Mary Palanisa my Whole Blood [facility] . [address] [place], [place] [address]. [id number]. [place] [address] CLIA#45D [id number] 12/30 CBC w/ auto diff RBC 10^6/u l 4.2 5.4 3.66 Low FINAL Mary Palanisa my Whole Blood [facility] . [address] [place], [place] [address] [facility]. [id number]. [place] [address] CLIA#45D [id number] 12/30 CBC w/ auto diff HGB g/dl 12.0 16.0 10.6 Low FINAL Mary Palanisa my Whole Blood [facility] . [address] [place], [place] [address] [facility]. [id number]. [place] [address] CLIA#45D [id number] 12/30 CBC w/ auto diff HCT % 37.0 47.0 33.8 Low FINAL Mary Palanisa my Whole Blood [facility] . [address] [place], [place] [address] [facility]. [id number]. [place] [address] CLIA#45D [id number] 12/30 CBC w/ auto diff MCV fl 81.0 99.0 92.3 FINAL Mary Palanisa my Whole Blood [facility] . [address] [place], [place] [address] [facility]. [id number]. [place] [address] CLIA#45D [id number] 12/30 CBC w/ auto diff MCH pg 27.0 31.0 29.0 FINAL Mary Palanisa my Whole Blood [facility] . [address] [place], [place] [address]. [id number]. [place] [address] CLIA#45D [id number] 12/30 CBC w/ auto diff MCHC g/dl 33.0 37.0 31.4 Low FINAL Mary Palanisa my Whole Blood [facility] . [address] [place], [place] [address]. [id number]. [place] [address] CLIA#45D [id number] 12/30 CBC w/ auto diff RDW % 10.5 14.5 14.3 FINAL Mary Palanisa my Whole Blood [facility] . [address] [place], [place] [address]Just around [employer] [facility]. [id number]. [place] [address] CLIA#45D [id number] 12/30 CBC w/ auto diff PLT 10^3/u l 130.0 400.0 294 FINAL Mary Palanisa my Whole Blood [facility] . [address] [place], [place] [address]Just around [employer] [facility]. [id number]. [place] [address] CLIA#45D [id number] 12/30 CBC w/ auto diff MPV fl 9.4 12.3 10.1 FINAL Mary Palanisa my Whole Blood [facility] . [address] [place], [place] [address]Just around [employer] [facility]. [id number]. [place] [address] CLIA#45D [id number] 12/30 CBC w/ auto diff Jordy % % 40.0 77.0 43.4 FINAL Mary Palanisa my Whole Blood [facility] . [address] [place], [place] [address]Just around [employer] [facility]. [id number]. [place] [address] CLIA#45D [id number] 12/30 CBC w/ auto diff Jordy # (ANC) 10^3/u l 1.5 6.5 2.1 FINAL Mary Palanisa my Whole Blood [facility] . [address] [place], [place] [address]Just around [employer] [facility]. [id number]. [place] [address] CLIA#45D [id number] 12/30 CBC w/ auto diff LY % % 15.0 41.0 31.7 FINAL Mary Palanisa my Whole Blood [facility] . [address] [place] [address] [employer] [facility]. [id number]. [place] [address] CLIA#45D [id number] 12/30 CBC w/ auto diff LY # 10^3/u l 1.2 3.4 1.5 FINAL Mary Palanisa my Whole Blood [facility] . [address] [place] [address] [employer] [facility]. [id number]. [place] [address] CLIA#45D [id number] 12/30 CBC w/ auto diff MO % % 3.0 11.0 13.6 High FINAL Mary Palanisa my Whole Blood [facility] . [address] [place], [place] [address]Just around [employer] [facility]. [id number]. [place] [address] CLIA#45D [id number] 12/30 CBC w/ auto diff MO # 10^3/u l 0.0 1.0 0.7 FINAL Mary Palanisa my Whole Blood [facility] . [address] [place] [address]. [id number]. [place] [address] CLIA#45D [id number] 12/30 CBC w/ auto diff EO % % 0.0 3.0 9.3 High FINAL Mary Palanisa my Whole Blood [facility] . [address] [place] [address]. [id number]. [place] [address] CLIA#45D [id number] 12/30 CBC w/ auto diff EO # 10^3/u L 0.0 0.3 0.5 High FINAL Mary Palanisa my Whole Blood [facility] . [address] [place] [address]. [id number]. [place] [address] CLIA#45D [id number] 12/30 CBC w/ auto diff BA % % 0.0 1.0 1.4 High FINAL Mary Palanisa my Whole Blood [facility] . [address] [place] [address]. [id number]. [place] [address] CLIA#45D [id number] 12/30 CBC w/ auto diff BA # 10^3/u L 0.0 0.2 0.1 FINAL Mary Palanisa my Whole Blood [facility] . [address] [place], [place] [address]Just around [employer] [facility]. [id number]. [place] [address] CLIA#45D [id number] 12/30 CBC w/ auto diff IG % % 0.0 0.5 0.60 High FINAL Mary Palanisa my Whole Blood [facility] . [address] [place] [address] [employer] [facility]. [id number]. [place] [address] CLIA#45D [id number] 12/30 CBC w/ auto diff IG # 10^3/u L 0.0 0.03 0.03 FINAL Mary Palanisa my Whole Blood [facility] . [address] [place], [place] [address]Just around [employer] [facility]. [id number]. [place] [address] CLIA#45D [id number] 12/30 CBC w/ auto diff NRBC, % % 0.00 FINAL Mary Palanisa my Whole Blood [facility] . [address] [place] [address]. [id number]. [place] [address] CLIA#45D [id number] 12/30 CBC w/ auto diff NRBC, absol kwethluk, x 10^3/ uL 10^3/u L 0.000 FINAL Mary Palanisa my Whole Blood [facility] . [address] [place] [address]. [id number]. [place] [address] CLIA#45D [id number] 12/30 CMP Sodiu m mmol/L 136.0 145.0 138 FINAL Mary Palanisa my Plasma [facility] . [address] [place] [address]. [id number]. [place] [address] CLIA#45D [id number] 12/30 CMP Potas sium mmol/L 3.5 5.1 3.8 FINAL Mary Palanisa my Plasma [facility] . [address] [place] [address]. [id number]. [place] [address] CLIA#45D [id number] 12/30 CMP Chlor loly mmol/L 97.0 107.0 101 FINAL Mary Palanisa my Plasma [facility] . [address] [place] [address]. [id number]. [place] [address] CLIA#45D [id number] 12/30 CMP CO2 mmol/L 21.0 32.0 30 FINAL Mary Palanisa my Plasma [facility] . [address] [place] [address] [employer] [facility]. [id number]. [place] [address] CLIA#45D [id number] 12/30 CMP Gluco se mg/dL 70.0 110.0 107 FINAL Mary Palanisa my Plasma [facility] . [address] [place] [address] [employer] [facility]. [id number]. [place] [address] CLIA#45D [id number] 12/30 CMP BUN mg/dL 7.0 18.0 23 High FINAL Mary Palanisa my Plasma [facility] . [address] [place] [address]. [id number]. [facility] [address] CLIA#45D [id number] 12/30 CMP Creat inine , mg/dL mg/dL 0.55 1.3 1.56 High FINAL Mary Palanisa my Plasma [facility] . [address] [place] [address]. [id number]. [facility] [address] CLIA#45D [id number] 12/30 CMP GFR estim ate ml/min /1.73m 2 32 Low eFR based on CKD-EPI to estimate renal function. If multiply results by 1.159.60- 89 mL/min/1. 73m^2 without kidney damage may be normal.60 -89 mL/min/1. 73m^2 for 3 months or more, along with kidney damage, may indicate early kidney disease.I f , multiply result by 1.159. FINAL Mary Palanisa my Plasma [facility] . [address] [place] [address]. [id number]. [place] [address] CLIA#45D [id number] 12/30 CMP BUN/C reati nine ratio Ratio 6.0 25.0 14.7 FINAL Mary Palanisa my Plasma [facility] . [address] [place] [address]. [id number]. [facility] [address] CLIA#45D [id number] 12/30 CMP Calci um mg/dL 8.5 10.1 8.7 FINAL Mary Palanisa my Plasma [facility] . [address] [place], [place] [address]Just around Us [facility]. [id number]. [facility] [address] CLIA#45D [id number] 12/30 CMP Total prote in g/dL 6.4 8.2 7.1 FINAL Mary Palanisa my Plasma [facility] . [address] [place] [address]. [id number]. [facility] [address] CLIA#45D [id number] 12/30 CMP Album in g/dL 3.4 5.0 2.9 Low FINAL Mary Palanisa my Plasma [facility] . [address] [place] [address]. [id number]. [place] [address] CLIA#45D [id number] 12/30 CMP A/G ratio Ratio 0.8 2.0 0.7 Low FINAL Mary Palanisa my Plasma [facility] . [address] [place] [address]. [id number]. [place] [address] CLIA#45D [id number] 12/30 CMP Bilir ubin, total mg/dL 0.1 1.0 0.6 FINAL Mary Palanisa my Plasma [facility] . [address] [place] [address]. [id number]. [place] [address] CLIA#45D [id number] 12/30 CMP Alkal ine phosp hatas e U/L 46.0 116.0 99 FINAL Mary Palanisa my Plasma [facility] . [address] [place] [address]. [id number]. [place] [address] CLIA#45D [id number] 12/30 CMP AST/S GOT U/L 15.0 37.0 18 FINAL Mary Palanisa my Plasma [facility] . [address] [place] [address]. [id number]. [place] [address] CLIA#45D [id number] 12/30 CMP ALT/S GPT U/L 14.0 59.0 21 FINAL Mary Palanisa my Plasma [facility] . [address] [place] [address]. [id number]. [place] [address] CLIA#45D [id number] 12/30 TIBC and perce nt sat w/ iron panel Iron ug/dL 50.0 170.0 43.00 Low FINAL Mary Palanisa my Serum [facility] . [address] [place] [address]. [id number]. [place] [address] CLIA#45D [id number] 12/30 TIBC and perce nt sat w/ iron panel TIBC ug/dL 250.0 450.0 442.00 FINAL Mary Palanisa my Serum [facility] . [address] [place] [address]. [id number]. [place] [address] CLIA#45D [id number] 12/30 TIBC and perce nt sat w/ iron panel Iron, % satur ation % 20.0 55.0 9.7 Low FINAL Mary Palanisa my Serum [facility] . [address] [place] [address]. [id number]. [place] [address] CLIA#45D [id number] 12/30 Juliet tin panel Juliet tin ng/mL 8.0 252.0 59 FINAL Mary Palanisa my Serum [facility] . [address] [place] [address]. [id number]. [place] [id number] CLIA#45D [id number] 12/30 Folat e panel Folat e, serum ng/mL 3.3 (Note)Ref erence ranges for adults: Low <3.4 ng/mL Borderlin e 3.4 - 5.4 ng/mL Normal >5.4 ng/mL FINAL Mary Palanisa my Serum [facility] [address] [address] [place] 12[place] [address] 12/30 SPEP with immun ofixa tion Album in, SPE g/dL 3.1 5.5 3.4 FINAL Mary Palanisa my Serum [facility] [address] [address] [address] 12[place] [address] 12/30 SPEP with immun ofixa tion Alpha -1 globu ashley g/dL 0.2 0.5 0.4 FINAL Mary Palanisa my Serum [facility] [address] [address] [address] 12[place] [address] 12/30 SPEP with immun ofixa tion Alpha -2 globu ashley g/dL 0.4 1.0 0.8 FINAL Mary Palanisa my Serum [facility] [address] [address] [place] 12[place] [address] 12/30 SPEP with immun ofixa tion Beta globu ashley g/dL 0.5 1.1 1.0 FINAL Mary Palanisa my Serum [facility] [address] [address] [address] 12[place] [address] 12/30 SPEP with immun ofixa tion Gamma globu ashley g/dL 0.7 1.5 1.0 FINAL Mary Palanisa my Serum [facility] [place] [address] [address] 12[place] [address] 12/30 SPEP with immun ofixa tion Parap rotei n band, g/dL g/dL None FINAL Mray rodrigues Serum [facility] [place] [address] [address] 12[place] [address] 12/30 SPEP with immun ofixa tion Total prote in elect ropho resis g/dL 5.7 8.2 6.6 FINAL Mary rodrigues Serum [facility] [place] [address] 12.[place] [address] 12/30 SPEP with immun ofixa tion SPE inter preta tion Results Below Abnormal appearing globulin peak, possibly monoclona l. If indicated , recommend immunotyp ing (Test Code: IES) for further evaluatio n. If the SPEP was orderedwi th reflex, immunotyp ing will be resulted upon completio n. FINAL Mary rodrigues Serum [facility] [place] [address] 12.[place] [address] 12/30 SPEP with immun ofixa tion Immun ofixa tion, serum , inter preta tion Results Below No monoclona l peaks detected. FINAL Mary rodrigues Serum [facility] [place] [address] [address] 12[place] [address] 12/30 Penrose /robbins da with K/L ratio , free, serum (mg/d L) Penrose light chain , free mg/L 3.3 19.4 70.1 High FINAL Mary rodrigues Serum [facility] [place] [address] [address] 12[place] [address] 12/30 Penrose /robbins da with K/L ratio , free, serum (mg/d L) Lambd a light chain , free mg/L 5.7 26.3 37.4 High FINAL Mary rodrigues Serum [facility] [place] [address] 12[place] [address] 12/30 Penrose /robbins da with K/L ratio , free, [...] Mary Palanisa my Serum [facility] [address] [place] [address] [address] 12.[facility] [address] 12/30 Vitam in B12 panel Vitam in B12 pg/mL 200.0 1100.0 481 FINAL Mayr Palanisa my Serum [facility] 12[address] [address] 04/08 CBC w/aut o diff with refle x WBC 10^3/u l 4.8 10.8 5.9 FINAL Mary Palanisa my Whole Blood [facility] . [address] [place] [address]. [place] [address]. [place] [address] CLIA#45D [id number] 04/08 CBC w/aut o diff with refle x RBC 10^6/u l 4.2 5.4 3.90 Low FINAL Mary Palanisa my Whole Blood [facility] . [address] [place] [address]. [id number]. [facility] [address] CLIA#45D [id number] 04/08 CBC w/aut o diff with refle x HGB g/dl 12.0 16.0 12.0 FINAL Mary Palanisa my Whole Blood [facility] . [address] [place] [address]. [id number]. [facility] [address] CLIA#45D [id number] 04/08 CBC w/aut o diff with refle x HCT % 37.0 47.0 38.2 FINAL Mary Palanisa my Whole Blood [facility] . [address] [place] [address]. [id number]. [place] [address] CLIA#45D [id number] 04/08 CBC w/aut o diff with refle x MCV fl 81.0 99.0 97.9 FINAL Mary Palanisa my Whole Blood [facility] . [address] [place] [address]. [id number]. [place] [address] CLIA#45D [id number] 04/08 CBC w/aut o diff with refle x MCH pg 27.0 31.0 30.8 FINAL Mary Palanisa my Whole Blood [facility] . [address] [place] [address]. [id number]. [place] [address] CLIA#45D [id number] 04/08 CBC w/aut o diff with refle x MCHC g/dl 33.0 37.0 31.4 Low FINAL Mary Palanisa my Whole Blood [facility] . [address] [place] [address]. [id number]. [place] [address] CLIA#45D [id number] 04/08 CBC w/aut o diff with refle x RDW % 10.5 14.5 15.8 High FINAL Mary Palanisa my Whole Blood [facility] . [address] [place] [address]. [id number]. [place] [address] CLIA#45D [id number] 04/08 CBC w/aut o diff with refle x PLT 10^3/u l 130.0 400.0 234 FINAL Mary Palanisa my Whole Blood [facility] . [address] [place] [address]. [id number]. [place] [address] CLIA#45D [id number] 04/08 CBC w/aut o diff with refle x MPV fl 9.4 12.3 10.4 FINAL Mary Palanisa my Whole Blood [facility] . [address] [place] [address]. [id number]. [place] [address] CLIA#45D [id number] 04/08 CBC w/aut o diff with refle x Jordy % % 40.0 77.0 60.9 FINAL Mary Palanisa my Whole Blood [facility] . [address] [place] [address]. [id number]. [place] [address] CLIA#45D [id number] 04/08 CBC w/aut o diff with refle x Jordy # (ANC) 10^3/u l 1.5 6.5 3.6 FINAL Mary Palanisa my Whole Blood [facility] . [address] [place] [address]. [id number]. [place] [address] CLIA#45D [id number] 04/08 CBC w/aut o diff with refle x LY % % 15.0 41.0 24.4 FINAL Mary Palanisa my Whole Blood [facility] . [address] [place] [address]. [id number]. [place] [address] CLIA#45D [id number] 04/08 CBC w/aut o diff with refle x LY # 10^3/u l 1.2 3.4 1.4 FINAL Mary Palanisa my Whole Blood [facility] . [address] [place] [address]. [id number]. [place] [address] CLIA#45D [id number] 04/08 CBC w/aut o diff with refle x MO % % 3.0 11.0 9.4 FINAL Mary Palanisa my Whole Blood [facility] . [address] [place] [address]. [id number]. [place] [address] CLIA#45D [id number] 04/08 CBC w/aut o diff with refle x MO # 10^3/u l 0.0 1.0 0.6 FINAL Mary Palanisa my Whole Blood [facility] . [address] [place] [address]. [id number]. [place] [address] CLIA#45D [id number] 04/08 CBC w/aut o diff with refle x EO % % 0.0 3.0 2.6 FINAL Mary Palanisa my Whole Blood [facility] . [address] [place] [address]. [id number]. [place] [address] CLIA#45D [id number] 04/08 CBC w/aut o diff with refle x EO # 10^3/u L 0.0 0.3 0.2 FINAL Mary Palanisa my Whole Blood [facility] . [address] [place] [address]. [id number]. [place] [address] CLIA#45D [id number] 04/08 CBC w/aut o diff with refle x BA % % 0.0 1.0 1.5 High FINAL Mary Palanisa my Whole Blood [facility] . [address] [place] [address]. [id number]. [place] [address] CLIA#45D [id number] 04/08 CBC w/aut o diff with refle x BA # 10^3/u L 0.0 0.2 0.1 FINAL Mary Palanisa my Whole Blood [facility] . [address] [place] [address]. [id number]. [place] [address] CLIA#45D [id number] 04/08 CBC w/aut o diff with refle x IG % % 0.0 0.5 1.20 High FINAL Mary Palanisa my Whole Blood [facility] . [address] [place] [address]. [id number]. [place] [address] CLIA#45D [id number] 04/08 CBC w/aut o diff with refle x IG # 10^3/u L 0.0 0.03 0.07 High FINAL Mary Palanisa my Whole Blood [facility] . [address] [place] [address]. [id number]. [place] [address] CLIA#45D [id number] 04/08 CBC w/aut o diff with refle x NRBC, % % 0.00 FINAL Mary Palanisa my Whole Blood [facility] . [address] [place] [address]. [id number]. [place] [address] CLIA#45D [id number] 04/08 CBC w/aut o diff with refle x NRBC, absol kw[place], x 10^3/ uL 10^3/u L 0.000 FINAL Mary Palanisa my Whole Blood [facility] . [address] [place] [address]. [id number]. [place] [address] CLIA#45D [id number] 04/08 Juliet tin panel Juliet tin ng/mL 8.0 252.0 460 High FINAL Mary Palanisa my Serum [facility] . [address] [place] [address]. [id number]. [place] [address] CLIA#45D [id number] 04/08 TIBC and perce nt sat w/ iron panel Iron ug/dL 50.0 170.0 87.00 FINAL Mary Palanisa my Serum [facility] . [address] [place] [address]. [id number]. [place] [address] CLIA#45D [id number] 04/08 TIBC and perce nt sat w/ iron panel TIBC ug/dL 250.0 450.0 347.00 FINAL Mary Palanisa my Serum [facility] . [address] [place] [address]. [id number]. [facility] [address] CLIA#45D [id number] 04/08 TIBC and perce nt sat w/ iron panel Iron, % satur ation % 20.0 55.0 25.1 FINAL Mary Palanisa my Serum [facility] . [address] [place] [address]. [id number]. [place] [id number] CLIA#45D [id number] 07/07 Penrose /robbins da with K/L ratio , free, serum (mg/d L) Penrose light chain , free mg/L 3.3 19.4 45.9 High FINAL Mary Palanisa Serum [facility]2 [address] [place] [address] [address] 12.[facility] [address] 07/07 Penrose /robbins da with K/L ratio , free, serum (mg/d L) Lambd a light chain , free mg/L 5.7 26.3 26.5 High FINAL Mary Palanisa my Serum [facility]2 [address] [place] [address] [address] 12.[facility] [address] 07/07 Penrose /robbins da with K/L ratio , free, [...] Mary Palanisa my Serum [facility] [address] [address] [place] 12[place] [address] 07/07 CBC w/aut o diff with refle x WBC 10^3/u l 4.8 10.8 5.5 FINAL Mary Palanisa my Whole Blood [facility] . [address] [place], [place] [address]. [id number]. [place] [address] CLIA#45D [id number] 07/07 CBC w/aut o diff with refle x RBC 10^6/u l 4.2 5.4 3.76 Low FINAL Mary Palanisa my Whole Blood [facility] . [address] [place], [place] [address]. [id number]. [place] [address] CLIA#45D [id number] 07/07 CBC w/aut o diff with refle x HGB g/dl 12.0 16.0 11.3 Low FINAL Mary Palanisa my Whole Blood [facility] . [address] [place], [place] [address] [facility]. [id number]. [facility] [address] CLIA#45D [id number] 07/07 CBC w/aut o diff with refle x HCT % 37.0 47.0 35.5 Low FINAL Mary Palanisa my Whole Blood [facility] . [address] [place], [place] [address]. [id number]. [place] [address] CLIA#45D [id number] 07/07 CBC w/aut o diff with refle x MCV fl 81.0 99.0 94.4 FINAL Mary Palanisa my Whole Blood [facility] . [facility]. [id number]. [place] [address] CLIA#45D [id number] 07/07 CBC w/aut o diff with refle x MCH pg 27.0 31.0 30.1 FINAL Mary Palanisa my Whole Blood [facility] . [address] [place] [address]. [id number]. [place] [address] CLIA#45D [id number] 07/07 CBC w/aut o diff with refle x MCHC g/dl 33.0 37.0 31.8 Low FINAL Mary Palanisa my Whole Blood [facility] . [address] [place] [address]. [id number]. [place] [address] CLIA#45D [id number] 07/07 CBC w/aut o diff with refle x RDW % 10.5 14.5 13.2 FINAL Mary Palanisa my Whole Blood [facility] . [address] [place] [address]. [id number]. [place] [address] CLIA#45D [id number] 07/07 CBC w/aut o diff with refle x PLT 10^3/u l 130.0 400.0 277 FINAL Mary Palanisa my Whole Blood [facility] . [address] [place] [address]. [id number]. [place] [address] CLIA#45D [id number] 07/07 CBC w/aut o diff with refle x MPV fl 9.4 12.3 10.3 FINAL Mary Palanisa my Whole Blood [facility] . [address] [place] [address]. [id number]. [place] [address] CLIA#45D [id number] 07/07 CBC w/aut o diff with refle x Jordy % % 40.0 77.0 44.9 FINAL Mary Palanisa my Whole Blood [facility] . [address] [place] [address]. [id number]. [place] [address] CLIA#45D [id number] 07/07 CBC w/aut o diff with refle x Jordy # (ANC) 10^3/u l 1.5 6.5 2.5 FINAL Mary Palanisa my Whole Blood [facility] . [address] [place] [address]. [id number]. [place] [address] CLIA#45D [id number] 07/07 CBC w/aut o diff with refle x LY % % 15.0 41.0 29.0 FINAL Mary Palanisa my Whole Blood [facility] . [address] [place] [address]. [id number]. [place] [address] CLIA#45D [id number] 07/07 CBC w/aut o diff with refle x LY # 10^3/u l 1.2 3.4 1.6 FINAL Mary Palanisa my Whole Blood [facility] . [address] [place] [address]. [id number]. [place] [address] CLIA#45D [id number] 07/07 CBC w/aut o diff with refle x MO % % 3.0 11.0 11.6 High FINAL Mary Palanisa my Whole Blood [facility] . [address] [place] [address]. [id number]. [place] [address] CLIA#45D [id number] 07/07 CBC w/aut o diff with refle x MO # 10^3/u l 0.0 1.0 0.6 FINAL Mary Palanisa my Whole Blood [facility] . [address] [place] [address]. [id number]. [place] [address] CLIA#45D [id number] 07/07 CBC w/aut o diff with refle x EO % % 0.0 3.0 12.5 High FINAL Mary Palanisa my Whole Blood [facility] . [address] [place] [address]. [id number]. [place] [address] CLIA#45D [id number] 07/07 CBC w/aut o diff with refle x EO # 10^3/u L 0.0 0.3 0.7 High FINAL Mary Palanisa my Whole Blood [facility] . [address] [place] [address]. [id number]. [place] [address] CLIA#45D [id number] 07/07 CBC w/aut o diff with refle x BA % % 0.0 1.0 0.9 FINAL Mary Palanisa my Whole Blood [facility] . [address] [place], [place] [address]Just around Us [facility]. [id number]. [place] [address] CLIA#45D [id number] 07/07 CBC w/aut o diff with refle x BA # 10^3/u L 0.0 0.2 0.1 FINAL Mary Palanisa my Whole Blood [facility] . [address] [place] [address]. [id number]. [place] [address] CLIA#45D [id number] 07/07 CBC w/aut o diff with refle x IG % % 0.0 0.5 1.10 High FINAL Mary Palanisa my Whole Blood [facility] . [address] [place], [place] [address]Just around Us [facility]. [id number]. [place] [address] CLIA#45D [id number] 07/07 CBC w/aut o diff with refle x IG # 10^3/u L 0.0 0.03 0.06 High FINAL Mary Palanisa my Whole Blood [facility] . [address] [place], [place] [address]Just around Us [facility]. [id number]. [place] [address] CLIA#45D [id number] 07/07 CBC w/aut o diff with refle x NRBC, % % 0.0 0.2 0.0 FINAL Mary Palanisa my Whole Blood [facility] . [address] [place] [address]. [id number]. [place] [address] CLIA#45D [id number] 07/07 CBC w/aut o diff with refle x NRBC, absol kw[place]uk, x 10^3/ uL 10^3/u L 0.0 0.012 0.000 FINAL Mary Palanisa my Whole Blood [facility] . [address] [place], [place] [address]Just around Us [facility]. [id number]. [place] [address] CLIA#45D [id number] 07/07 TIBC and perce nt sat w/ iron panel Iron ug/dL 50.0 170.0 75.00 FINAL Mary Palanisa my Serum [facility] . [address] [place], [place] [address]Just around Us [facility]. [id number]. [place] [address] CLIA#45D [id number] 07/07 TIBC and perce nt sat w/ iron panel TIBC ug/dL 250.0 450.0 272.00 FINAL Mary Palanisa my Serum [facility] . [address] [place] [address]. [id number]. [facility] [address] CLIA#45D [id number] 07/07 TIBC and perce nt sat w/ iron panel Iron, % satur ation % 20.0 55.0 27.6 FINAL Mary Palanisa my Serum [facility] . [address] [place] [address]. [id number]. [place] [id number] CLIA#45D [id number] 07/07 Juliet tin panel Juliet tin ng/mL 8.0 252.0 738 High FINAL Mary Palanisa my Serum [facility] . [address] [place] [address]. [id number]. [place] [id number] CLIA#45D [id number] 07/07 SPEP with immun ofixa tion Album in, SPE g/dL 3.1 5.5 3.2 FINAL Mary Palanisa my Serum [facility] [place] [address] [address] [address] 07/07 SPEP with immun ofixa tion Alpha -1 globu ashley g/dL 0.2 0.5 0.5 FINAL Mary Palanisa my Serum [facility] [place] [address] [address] 12.[place] [address] 07/07 SPEP with immun ofixa tion Alpha -2 globu ashley g/dL 0.4 1.0 0.8 FINAL Mary Palanisa my Serum [facility] [place] [address] [address] 12[place] [address] 07/07 SPEP with immun ofixa tion Beta globu ashley g/dL 0.5 1.1 0.7 FINAL Mary Palanisa my Serum [facility] [place] [address] [address] 12[place] [address] 07/07 SPEP with immun ofixa tion Gamma globu ashley g/dL 0.7 1.5 0.9 FINAL Mary Palanisa my Serum [facility] [place] [address] [address] 12[place] [address] 07/07 SPEP with immun ofixa tion Parap rotei n band, g/dL g/dL None FINAL Mary Chisa my Serum [facility] [address] [address] [address] [address] 07/07 SPEP with immun ofixa tion Total prote in elect ropho resis g/dL 5.7 8.2 6.1 FINAL Mary Johnanisa my Serum [facility] [address] [address] [address] 12[place] [address] 07/07 SPEP with immun ofixa tion SPE inter preta tion Results Below Normal serum total protein with normal electroph oretic pattern. FINAL Mary Chisa my Serum [facility] [address] [address] [address] [address] 07/07 SPEP with immun ofixa tion Immun ofixa tion, serum , inter preta tion Results Below No monoclona l peaks detected. FINAL Mary Johnanisa my Serum [facility] [address] [address] [address] 12[place] [address] 07/07 CMP Sodiu m mmol/L 136.0 145.0 137 FINAL Mary Johnanisa my Plasma [facility] . [address] [place] [address]. [place] [address]. [place] [address] CLIA#45D [id number] 07/07 CMP Potas sium mmol/L 3.5 5.1 4.1 FINAL Mary Palanisa my Plasma [facility] . [address] [place] [address]. [id number]. [place] [address] CLIA#45D [id number] 07/07 CMP Chlor loly mmol/L 97.0 107.0 101 FINAL Mary Palanisa my Plasma [facility] . [address] [place] [address] [employer] [facility]. [id number]. [place] [address] CLIA#45D [id number] 07/07 CMP CO2 mmol/L 21.0 32.0 32 FINAL Mary Palanisa my Plasma [facility] . [address] [place] [address]. [id number]. [place] [address] CLIA#45D [id number] 07/07 CMP Gluco se mg/dL 74.0 106.0 115 High FINAL Mary Palanisa my Plasma [facility] . [address] [place] [address]. [id number]. [place] [id number] CLIA#45D [id number] 07/07 CMP BUN mg/dL 7.0 18.0 21 High FINAL Mary Palanisa my Plasma [facility] . [address] [place] [address]. [id number]. [place] [address] CLIA#45D [id number] 07/07 CMP Creat inine , mg/dL mg/dL 0.55 1.3 1.50 High FINAL Mary Palanisa my Plasma [facility] . [address] [place] [address]. [id number]. [place] [address] CLIA#45D [id number] 07/07 CMP GFR estim ate ml/min /1.73m 2 36 Low Result based on the eGFR 2020 calculati on.60-89 mL/min/1. 73m^2 without kidney damage may be normal.60 -89 mL/min/1. 73m^2 for 3 months or more, along with kidney damage, may indicate early kidney disease.C alculatio n modified to the 2020 formula effective 01/16/23. FINAL Mary Palanisa my Plasma [facility] . [address] [place] [address]. [id number]. [place] [id number] CLIA#45D [id number] 07/07 CMP BUN/C reati nine ratio Ratio 6.0 25.0 14.0 FINAL Mary Palanisa my Plasma [facility] . [address] [place] [address]. [id number]. [place] [id number] CLIA#45D [id number] 07/07 CMP Calci um mg/dL 8.5 10.1 9.6 FINAL Mary Palanisa my Plasma [facility] . [address] [place] [address]. [id number]. [place] [id number] CLIA#45D [id number] 07/07 CMP Total prote in g/dL 6.4 8.2 6.5 FINAL Mary Palanisa my Plasma [facility] . [address] [place] [address] [employer] [facility]. [id number]. [place] [address] CLIA#45D [id number] 07/07 CMP Album in g/dL 3.4 5.0 2.9 Low FINAL Mary Palanisa my Plasma [facility] . [address] [place], [place] [address]Just around Us [facility]. [id number]. [place] [address] CLIA#45D [id number] 07/07 CMP A/G ratio Ratio 0.8 2.0 0.8 FINAL Mary Palanisa my Plasma [facility] . [address] [place], [place] [address]Just around Us [facility]. [id number]. [place] [address] CLIA#45D [id number] 07/07 CMP Bilir ubin, total mg/dL 0.2 1.0 0.5 FINAL Mray Palanisa my Plasma [facility] . [address] [place], [place] [address]Just around Us [facility]. [id number]. [place] [address] CLIA#45D [id number] 07/07 CMP Alkal ine phosp hatas e U/L 46.0 116.0 83 FINAL Mary Palanisa my Plasma [facility] . [address] [place], [place] [address]Just around Us [facility]. [id number]. [place] [address] CLIA#45D [id number] 07/07 CMP AST/S GOT U/L 15.0 37.0 22 FINAL Mary Palanisa my Plasma [facility] . [address] [place], [place] [address]Just around Us [facility]. [id number]. [place] [address] CLIA#45D [id number] 07/07 CMP ALT/S GPT U/L 14.0 59.0 24 FINAL Mary Palanisa my Plasma [facility] . [address] [place] [address] [employer] [facility]. [id number]. [place] [id number] CLIA#45D [id number] 10/27 CMP Sodiu m mmol/L 136.0 145.0 140 FINAL Mary Palanisa my Plasma [facility] . [address] [place] [address] [employer] [facility]. [id number]. [place] [address] CLIA#45D [id number] 10/27 CMP Potas sium mmol/L 3.5 5.1 4.7 FINAL Mary Palanisa my Plasma [facility] . [address] [place] [address] [employer] [facility]. [id number]. [place] [address] CLIA#45D [id number] 10/27 CMP Chlor loly mmol/L 97.0 107.0 103 FINAL Mary Palanisa my Plasma [facility] . [address] [place] [address] [employer] [facility]. [id number]. [place] [address] CLIA#45D [id number] 10/27 CMP CO2 mmol/L 21.0 32.0 25 FINAL Mary Palanisa my Plasma [facility] . [address] [place] [address] [employer] [facility]. [id number]. [place] [address] CLIA#45D [id number] 10/27 CMP Gluco se mg/dL 74.0 106.0 88 FINAL Mary Palanisa my Plasma [facility] . [address] [place] [address] [employer] [facility]. [id number]. [place] [address] CLIA#45D [id number] 10/27 CMP BUN mg/dL 7.0 18.0 26 High FINAL Mary Palanisa my Plasma [facility] . [address] [place] [address] [employer] [facility]. [id number]. [place] [address] CLIA#45D [id number] 10/27 CMP Creat inine , mg/dL mg/dL 0.55 1.3 1.08 FINAL Mary Johnanisa my Plasma [facility] . [address] [place] [address] [employer] [facility]. [id number]. [place] [id number] CLIA#45D [id number] 10/27 CMP GFR estim ate ml/min /1.73m 2 53 Low Result based on the eGFR 2020 calculati on.60-89 mL/min/1. 73m^2 without kidney damage may be normal.60 -89 mL/min/1. 73m^2 for 3 months or more, along with kidney damage, may indicate early kidney disease.C alculatio n modified to the 2020 formula effective 01/16/23. FINAL Mary Palanisa my Plasma [facility] . [address] [place] [address] [employer] [facility]. [id number]. [place] [address] CLIA#45D [id number] 10/27 CMP BUN/C reati nine ratio Ratio 6.0 25.0 24.1 FINAL Mary Palanisa my Plasma [facility] . [address] [place] [address]. [id number]. [place] [address] CLIA#45D [id number] 10/27 CMP Calci um mg/dL 8.5 10.1 8.8 FINAL Mary Palanisa my Plasma [facility] . [address] [place] [address]. [id number]. [place] [address] CLIA#45D [id number] 10/27 CMP Total prote in g/dL 6.4 8.2 6.8 FINAL Mary Palanisa my Plasma [facility] . [address] [place] [address]. [id number]. [place] [address] CLIA#45D [id number] 10/27 CMP Album in g/dL 3.4 5.0 2.7 Low FINAL Mary Palanisa my Plasma [facility] . [address] [place] [address]. [id number]. [place] [address] CLIA#45D [id number] 10/27 CMP A/G ratio Ratio 0.8 2.0 0.7 Low FINAL Mary Palanisa my Plasma [facility] . [address] [place] [address]. [id number]. [place] [address] CLIA#45D [id number] 10/27 CMP Bilir ubin, total mg/dL 0.2 1.0 0.3 FINAL Mary Palanisa my Plasma [facility] . [address] [place] [address]. [id number]. [place] [address] CLIA#45D [id number] 10/27 CMP Alkal ine phosp hatas e U/L 46.0 116.0 89 FINAL Mary Palanisa my Plasma [facility] . [address] [place] [address]. [id number]. [place] [address] CLIA#45D [id number] 10/27 CMP AST/S GOT U/L 15.0 37.0 18 FINAL Mary Palanisa my Plasma [facility] . [address] [place] [address]. [id number]. [place] [address] CLIA#45D [id number] 10/27 CMP ALT/S GPT U/L 14.0 59.0 19 FINAL Mary Palanisa my Plasma [facility] . [address] [place] [address]. [id number]. [place] [address] CLIA#45D [id number] 10/27 CBC w/aut o diff with refle x WBC 10^3/u l 4.8 10.8 9.7 FINAL Mary Palanisa my Whole Blood [facility] . [address] [place] [address]. [id number]. [place] [address] CLIA#45D [id number] 10/27 CBC w/aut o diff with refle x RBC 10^6/u l 4.2 5.4 3.48 Low FINAL Mary Palanisa my Whole Blood [facility] . [address] [place] [address]. [id number]. [place] [address] CLIA#45D [id number] 10/27 CBC w/aut o diff with refle x HGB g/dl 12.0 16.0 10.0 Low FINAL Mary Palanisa my Whole Blood [facility] . [address] [place] [address]. [id number]. [place] [address] CLIA#45D [id number] 10/27 CBC w/aut o diff with refle x HCT % 37.0 47.0 32.4 Low FINAL Mary Palanisa my Whole Blood [facility] . [address] [place] [address]. [id number]. [place] [address] CLIA#45D [id number] 10/27 CBC w/aut o diff with refle x MCV fl 81.0 99.0 93.1 FINAL Mary Palanisa my Whole Blood [facility] . [address] [place] [address]. [id number]. [place] [address] CLIA#45D [id number] 10/27 CBC w/aut o diff with refle x MCH pg 27.0 31.0 28.7 FINAL Mary Palanisa my Whole Blood [facility] . [address] [place] [address]. [id number]. [place] [address] CLIA#45D [id number] 10/27 CBC w/aut o diff with refle x MCHC g/dl 33.0 37.0 30.9 Low FINAL Mary Palanisa my Whole Blood [facility] . [address] [place] [address]. [id number]. [place] [address] CLIA#45D [id number] 10/27 CBC w/aut o diff with refle x RDW % 10.5 14.5 15.3 High FINAL Mary Palanisa my Whole Blood [facility] . [address] [place] [address]. [id number]. [place] [address] CLIA#45D [id number] 10/27 CBC w/aut o diff with refle x PLT 10^3/u l 130.0 400.0 446 High FINAL Mary Palanisa my Whole Blood [facility] . [address] [place] [address]. [id number]. [place] [address] CLIA#45D [id number] 10/27 CBC w/aut o diff with refle x MPV fl 9.4 12.3 10.2 FINAL Mary Palanisa my Whole Blood [facility] . [address] [place] [address]. [id number]. [place] [address] CLIA#45D [id number] 10/27 CBC w/aut o diff with refle x Jordy % % 40.0 77.0 64.4 FINAL Mary Palanisa my Whole Blood [facility] . [address] [place] [address]. [id number]. [place] [address] CLIA#45D [id number] 10/27 CBC w/aut o diff with refle x Jordy # (ANC) 10^3/u l 1.5 6.5 6.2 FINAL Mary Palanisa my Whole Blood [facility] . [address] [place] [address]. [id number]. [place] [address] CLIA#45D [id number] 10/27 CBC w/aut o diff with refle x LY % % 15.0 41.0 14.6 Low FINAL Mary Palanisa my Whole Blood [facility] . [address] [place] [address]. [id number]. [place] [address] CLIA#45D [id number] 10/27 CBC w/aut o diff with refle x LY # 10^3/u l 1.2 3.4 1.4 FINAL Mary Palanisa my Whole Blood [facility] . [address] [place] [address]. [id number]. [place] [address] CLIA#45D [id number] 10/27 CBC w/aut o diff with refle x MO % % 3.0 11.0 10.7 FINAL Mary Palanisa my Whole Blood [facility] . [address] [place] [address]. [id number]. [place] [address] CLIA#45D [id number] 10/27 CBC w/aut o diff with refle x MO # 10^3/u l 0.0 1.0 1.0 FINAL Mary Palanisa my Whole Blood [facility] . [address] [place] [address]. [id number]. [place] [address] CLIA#45D [id number] 10/27 CBC w/aut o diff with refle x EO % % 0.0 3.0 7.1 High FINAL Mary Palanisa my Whole Blood [facility] . [address] [place] [address]. [id number]. [place] [address] CLIA#45D [id number] 10/27 CBC w/aut o diff with refle x EO # 10^3/u L 0.0 0.3 0.7 High FINAL Mary Palanisa my Whole Blood [facility] . [address] [place] [address]. [id number]. [place] [address] CLIA#45D [id number] 10/27 CBC w/aut o diff with refle x BA % % 0.0 1.0 1.1 High FINAL Mary Palanisa my Whole Blood [facility] . [address] [place] [address]. [id number]. [place] [address] CLIA#45D [id number] 10/27 CBC w/aut o diff with refle x BA # 10^3/u L 0.0 0.2 0.1 FINAL Mary Palanisa my Whole Blood [facility] . [address] [place] [address]. [id number]. [place] [address] CLIA#45D [id number] 10/27 CBC w/aut o diff with refle x IG % % 0.0 0.5 2.10 High FINAL Mary Palanisa my Whole Blood [facility] . [address] [place] [address]. [id number]. [place] [address] CLIA#45D [id number] 10/27 CBC w/aut o diff with refle x IG # 10^3/u L 0.0 0.03 0.20 High FINAL Mary Palanisa my Whole Blood [facility] . [address] [place] [address]. [id number]. [place] [address] CLIA#45D [id number] 10/27 CBC w/aut o diff with refle x NRBC, % % 0.0 0.2 0.0 FINAL Mary Palanisa my Whole Blood [facility] . [address] [place] [address]. [id number]. [place] [address] CLIA#45D [id number] 10/27 CBC w/aut o diff with refle x NRBC, absol [place], x 10^3/ uL 10^3/u L 0.0 0.012 0.000 FINAL Mary Palanisa my Whole Blood [facility] . [address] [place] [address]. [id number]. [place] [address] CLIA#45D [id number] 10/27 Juliet tin panel Juliet tin ng/mL 8.0 252.0 953 High FINAL Mary Palanisa my Serum [facility] . [address] [place] [address]. [id number]. [place] [address] CLIA#45D [id number] 10/27 TIBC and perce nt sat w/ iron panel Iron ug/dL 50.0 170.0 24.00 Low FINAL Mary Palanisa my Serum [facility] . [address] [place] [address]. [id number]. [place] [address] CLIA#45D [id number] 10/27 TIBC and perce nt sat w/ iron panel TIBC ug/dL 250.0 450.0 202.00 Low FINAL Mary Palanisa my Serum [facility] . [address] [facility]. [id number]. [place] [address] CLIA#45D [id number] 10/27 TIBC and perce nt sat w/ iron panel Iron, % satur ation % 20.0 55.0 11.9 Low FINAL Mary Palanisa my Serum [facility] . [address] [facility]. [id number]. [place] [address] CLIA#45D [id number] 04/26 CMP Sodiu m mmol/L 136.0 145.0 140 FINAL Mary Palanisa my Plasma [facility].[address] [facility] [address] [place] [address] CLIA#45D [id number] 04/26 CMP Potas sium mmol/L 3.5 5.1 4.9 FINAL Mary Palanisa my Plasma [facility].[address] [facility] [address] [place] [address] CLIA#45D [id number] 04/26 CMP Chlor loly mmol/L 97.0 107.0 104 FINAL Mary Palanisa my Plasma [facility].[address] [facility] [address] [place] [address] CLIA#45D [id number] 04/26 CMP CO2 mmol/L 21.0 32.0 26.0 FINAL Mary Palanisa my Plasma [facility].[address] [facility] [address] [place] [address] CLIA#45D [id number] 04/26 CMP Gluco se mg/dL 74.0 106.0 120 High FINAL Mary Palanisa my Plasma [facility].[address] [facility] [address] [place] [address] CLIA#45D [id number] 04/26 CMP BUN mg/dL 7.0 18.0 37 High FINAL Mary Palanisa my Plasma [facility].[address] [facility] [address] [place] [address] CLIA#45D [id number] 04/26 CMP Creat inine , mg/dL mg/dL 0.55 1.3 1.42 High FINAL Mary Palanisa my Plasma [facility].52 [address] [facility] [address] [place] [address] CLIA#45D [id number] 04/26 CMP GFR estim ate mil/mi n/1.73 m2 38 Low Result based on the eGFR 2020 calculati on.60-89 mL/min/1. 73m^2 without kidney damage may be normal.60 -89 mL/min/1. 73m^2 for 3 months or more, along with kidney damage, may indicate early kidney disease.C alculatio n modified to the 2020 formula effective 01/16/23. FINAL Mary Palanisa my Plasma [facility].52 [address] [facility] [address] [place] [address] CLIA#45D [id number] 04/26 CMP BUN/C reati nine ratio 6.0 25.0 26.1 High FINAL Mary Palanisa my Plasma [facility].52 [address] [facility] [address] [place] [address] CLIA#45D [id number] 04/26 CMP Album in g/dL 3.4 5.0 3.2 Low FINAL Mary Palanisa my Plasma [facility].[address] [facility] [address] [place] [address] CLIA#45D [id number] 04/26 CMP Calci um mg/dL 8.5 10.1 9.1 FINAL Mary Palanisa my Plasma [facility].52 36 [facility] [address] [place] [address] CLIA#45D [id number] 04/26 CMP Total prote in g/dL 6.4 8.2 7.8 FINAL Mary Palanisa my Plasma [facility].[address] [facility] [address] [place] [address] CLIA#45D [id number] 04/26 CMP Globu ashley g/dL 2.2 4.2 4.6 High FINAL Mary Palanisa my Plasma [facility].[address] [facility] [address] [place] [address] CLIA#45D [id number] 04/26 CMP A/G ratio 0.8 2.0 0.7 Low FINAL Mary Palanisa my Plasma [facility].[address] [facility] [address] [place] [address] CLIA#45D [id number] 04/26 CMP Bilir ubin, total mg/dL 0.2 1.0 0.5 FINAL Mary Palanisa my Plasma [facility].[address] [facility] [address] [place] [address] CLIA#45D [id number] 04/26 CMP Alkal ine phosp hatas e U/L 46.0 116.0 93 FINAL Mary Palanisa my Plasma [facility].[address] [facility] [address] [place] [address] CLIA#45D [id number] 04/26 CMP AST/S GOT U/L 15.0 37.0 17 FINAL Mary Palanisa my Plasma [facility].[address] [facility] [address] [place] [address] CLIA#45D [id number] 04/26 CMP ALT/S GPT U/L 14.0 59.0 26 FINAL Mary Palanisa my Plasma [facility].[address] [facility] [address] [place] [address] CLIA#45D [id number] 04/26 SPEP with immun ofixa tion Total prote in g/dL 6.1 8.1 7.1 FINAL Mary Palanisa my Serum [facility] [place] [address] [address] [address] 04/26 SPEP with immun ofixa tion NOHEMI inter preta tion Results Below Normal pattern. No monoclona l proteins detected. FINAL Mary Palanisa my Serum [facility].[address] [place] [address] 12.[place] [address] 04/26 SPEP with immun ofixa tion Album in, SPE g/dL 3.8 4.8 3.6 Low FINAL Mary Palanisa my Serum [facility] [place] [address] 12.[place] [address] 04/26 SPEP with immun ofixa tion Alpha -1 globu ashley g/dL 0.2 0.3 0.3 FINAL Mary Palanisa my Serum [facility].[address] [place] [address] 12.[place] [address] 04/26 SPEP with immun ofixa tion Alpha -2 globu ashley g/dL 0.5 0.9 0.8 FINAL Mary Palanisa my Serum [facility].[address] [place] [address] 12.[place] [address] 04/26 SPEP with immun ofixa tion Beta- 1 g/dL 0.4 0.6 0.5 FINAL Mary Palanisa my Serum [facility] [place] [address] 12.[place] [address] 04/26 SPEP with immun ofixa tion Beta- 2 g/dL 0.2 0.5 0.4 FINAL Mary Palanisa my Serum [facility].[address] [place] [address] 12.[place] [address] 04/26 SPEP with immun ofixa tion Gamma globu ashley g/dL 0.8 1.7 1.5 FINAL Mary Palanisa my Serum [facility].[address] [place] [address] 12.[place] [address] 04/26 SPEP with immun ofixa tion SPE inter preta tion Results Below Abnormal appearing globulin peak, possibly monoclona l. If indicated , recommend immunotyp ing (Test Code: [id number]) for further evaluatio n. If the SPEP wasordere d with reflex, immunotyp ing will be resulted upon completio n. FINAL Mary Palanisa my Serum [facility] [place] [address] [address] [address] 04/26 Penrose /robbins da with K/L ratio , free, serum (mg/d L) Penrose light chain , free mg/L 3.3 19.4 86.9 High FINAL Mary Palanisa my Serum [facility] [place] [address] [address] [address] 04/26 Penrose /robbins da with K/L ratio , free, serum (mg/d L) Lambd a light chain , free mg/L 5.7 26.3 37.3 High FINAL Mary Palanisa lilia Serum [facility] [place] [address] [address] [address] 04/26 Penrose /robbins da with K/L ratio , free, [...] Mary Palanisa lilia Serum [facility] [place] [address] [address] [address] 04/26 CBC w/aut o diff with refle x WBC 10^3/u L 4.8 10.8 6.4 FINAL Mary Palanisa my Whole Blood [facility].[address] [facility] ty .[address] [place] [address] CLIA#45D [id number] 04/26 CBC w/aut o diff with refle x RBC 10^6/u L 4.2 5.4 4.06 Low FINAL Mary Palanisa my Whole Blood [facility].[address] [facility] [address] [place] [address] CLIA#45D [id number] 04/26 CBC w/aut o diff with refle x HGB g/dL 12.0 16.0 11.1 Low FINAL Mary Palanisa my Whole Blood [facility].[address] [facility] [address] [place] [address] CLIA#45D [id number] 04/26 CBC w/aut o diff with refle x HCT % 37.0 47.0 37.0 FINAL Mary Palanisa my Whole Blood [facility].[address] [facility] [address] [place] [address] CLIA#45D [id number] 04/26 CBC w/aut o diff with refle x MCV fL 81.0 99.0 91.1 FINAL Mary Palanisa my Whole Blood [facility].[address] [facility] [address] [place] [address] CLIA#45D [id number] 04/26 CBC w/aut o diff with refle x MCH pg 27.0 31.0 27.3 FINAL Mary Palanisa my Whole Blood [facility].[address] [facility] [address] [place] [address] CLIA#45D [id number] 04/26 CBC w/aut o diff with refle x MCHC g/dL 33.0 37.0 30.0 Low FINAL Mary Palanisa my Whole Blood [facility].[address] [facility] [address] [place] [address] CLIA#45D [id number] 04/26 CBC w/aut o diff with refle x PLT 10^3/u L 130.0 400.0 256 FINAL Mary Palanisa my Whole Blood [facility].[address] [facility] ty e [address] [place] [address] CLIA#45D [id number] 04/26 CBC w/aut o diff with refle x MPV fL 9.4 12.3 10.7 FINAL Mary Palanisa my Whole Blood [facility].[address] [facility] [address] [place] [address] CLIA#45D [id number] 04/26 CBC w/aut o diff with refle x RDW % 10.5 14.5 15.9 High FINAL Mary Palanisa my Whole Blood [facility].[address] [facility] [address] [place] [address] CLIA#45D [id number] 04/26 CBC w/aut o diff with refle x Jordy % % 40.0 77.0 56.0 FINAL Mary Palanisa my Whole Blood [facility].[address] [facility] [address] [place] [address] CLIA#45D [id number] 04/26 CBC w/aut o diff with refle x Jordy # (ANC) 10^3/u L 1.5 6.5 3.57 FINAL Mary Palanisa my Whole Blood [facility].[address] [facility] [address] [place] [address] CLIA#45D [id number] 04/26 CBC w/aut o diff with refle x IG % % 0.0 0.5 0.3 FINAL Mary Palanisa my Whole Blood [facility].[address] [facility] [address] [place] [address] CLIA#45D [id number] 04/26 CBC w/aut o diff with refle x IG # 10^3/u L 0.0 0.03 0.02 FINAL Mary Palanisa my Whole Blood [facility].[address] [facility] ty [address] [place] [address] CLIA#45D [id number] 04/26 CBC w/aut o diff with refle x LY % % 15.0 41.0 19.6 FINAL Mary Palanisa my Whole Blood [facility].[address] [facility] [address] [place] [address] CLIA#45D [id number] 04/26 CBC w/aut o diff with refle x LY # 10^3/u L 1.2 3.4 1.25 FINAL Amry Palanisa my Whole Blood [facility].[address] [facility] ty [address] [place] [address] CLIA#45D [id number] 04/26 CBC w/aut o diff with refle x MO % % 3.0 11.0 9.7 FINAL Mary Palanisa my Whole Blood [facility].[address] [facility] ty [address] [place] [address] CLIA#45D [id number] 04/26 CBC w/aut o diff with refle x MO # 10^3/u L 0.0 1.0 0.62 FINAL Mary Palanisa my Whole Blood [facility].[address] [facility] ty [address] [place] [address] CLIA#45D [id number] 04/26 CBC w/aut o diff with refle x EO % % 0.0 3.0 13.0 High FINAL Mary Palanisa my Whole Blood [facility].[address] [facility] [address] [place] [address] CLIA#45D [id number] 04/26 CBC w/aut o diff with refle x EO # 10^3/u L 0.0 0.3 0.83 High FINAL Mary Palanisa my Whole Blood [facility].[address] [facility] ty [address] [place] [address] CLIA#45D [id number] 04/26 CBC w/aut o diff with refle x BA % % 0.0 1.0 1.4 High FINAL Mary Palanisa my Whole Blood [facility].[address] [facility] ty [address] [place] [address] CLIA#45D [id number] 04/26 CBC w/aut o diff with refle x BA # 10^3/u L 0.0 0.2 0.09 FINAL Mary Palanisa my Whole Blood [facility].52 36 [facility] e [address] [place] [address] CLIA#45D [id number] 04/26 CBC w/aut o diff with refle x NRBC, % % 0.0 0.2 0.0 FINAL Mary Palanisa my Whole Blood [facility].52 36 [facility] e [address] [place] [address] CLIA#45D [id number] 04/26 CBC w/aut o diff with refle x NRBC, absol [place], x 10^3/ uL 10^3/u L 0.0 0.01 0.00 FINAL Mary Palanisa my Whole Blood [facility].52 [address] [facility] [address] [place] [address] CLIA#45D [id number] 04/26 TIBC and perce nt sat w/ iron panel Iron ug/dL 65.0 175.0 30.0 Low FINAL Mary Palanisa my Serum [facility].52 [address] [facility] [address] [place] [address] CLIA#45D [id number] 04/26 TIBC and perce nt sat w/ iron panel TIBC ug/dL 250.0 450.0 283.0 FINAL Mary Palanisa my Serum [facility].52 [address] [facility] [address] [place] [address] CLIA#45D [id number] 04/26 TIBC and perce nt sat w/ iron panel Iron, % satur ation % 15.0 50.0 11 Low FINAL Mary Palanisa my Serum [facility].52 [address] [facility] [address] [place] [address] CLIA#45D [id number] 04/26 Juliet tin panel Juliet tin ng/mL 8.0 252.0 266 High FINAL Mary Palanisa my Serum [facility].52 [address] [facility] [address] [place] [address] CLIA#45D [id number] 11/07 TIBC and perce nt sat w/ iron panel Iron ug/dL 50.0 170.0 60.0 FINAL [facility].[address] [facility] [address] [place] [address] CLIA#45D [id number] 11/07 TIBC and perce nt sat w/ iron panel TIBC ug/dL 250.0 450.0 311.0 FINAL [facility].52 36 [facility] e [address] [place] [address] CLIA#45D [id number] 11/07 TIBC and perce nt sat w/ iron panel Iron, % satur ation % 15.0 50.0 19 FINAL [facility].52 [address] [facility] [address] [place] [address] CLIA#45D [id number] 11/07 Juliet tin panel Juliet tin ng/mL 8.0 252.0 228 FINAL [facility].52 [address] [facility] [address] [place] [address] CLIA#45D [id number] 11/07 CBC w/aut o diff with refle x WBC 10^3/u L 4.8 10.8 4.6 Low FINAL Luis Tucker Whole Blood [facility].[address] [facility] [address] [place] [address] CLIA#45D [id number] 11/07 CBC w/aut o diff with refle x RBC 10^6/u L 4.2 5.4 4.23 FINAL Luis Tucker Whole Blood [facility].52 [address] [facility] [address] [place] [address] CLIA#45D [id number] 11/07 CBC w/aut o diff with refle x HGB g/dL 12.0 16.0 12.4 FINAL Luis Tucker Whole Blood [facility].[address] [facility] [address] [place] [address] CLIA#45D [id number] 11/07 CBC w/aut o diff with refle x HCT % 37.0 47.0 40.8 FINAL Luis Tucker Whole Blood [facility].[address] [facility] ty [address] [place] [address] CLIA#45D [id number] 11/07 CBC w/aut o diff with refle x MCV fL 81.0 99.0 96.5 FINAL Luis Tucker Whole Blood [facility].[address] [facility] ty [address] [place] [address] CLIA#45D [id number] 11/07 CBC w/aut o diff with refle x MCH pg 27.0 31.0 29.3 FINAL Luis Tucker Whole Blood [facility].[address] [facility] it e [address] [place] [address] CLIA#[id number] 11/07 CBC w/aut o diff with refle x MCHC g/dL 33.0 37.0 30.4 Low FINAL Luis Tucker Whole Blood [facility].52 [address] [facility] it e [address] [place] [address] CLIA#45D [id number] 11/07 CBC w/aut o diff with refle x PLT 10^3/u L 130.0 400.0 216 FINAL Luis Tucker Whole Blood [facility].[address] [facility] [address] [place] [address] CLIA#45D [id number] 11/07 CBC w/aut o diff with refle x MPV fL 9.4 12.3 10.3 FINAL Luis Tucker Whole Blood [facility].[address] [facility] [address] [place] [address] CLIA#45D [id number] 11/07 CBC w/aut o diff with refle x RDW % 10.5 14.5 14.0 FINAL Luis Tucker Whole Blood [facility].[address] [facility] [address] [place] [address] CLIA#45D [id number] 11/07 CBC w/aut o diff with refle x Jordy % % 40.0 77.0 59.7 FINAL Luis Tucker Whole Blood [facility].[address] [facility] [address] [place] [address] CLIA#45D [id number] 11/07 CBC w/aut o diff with refle x Jordy # (ANC) 10^3/u L 1.5 6.5 2.73 FINAL Luis Tucker Whole Blood [facility].[address] [facility] [address] [place] [address] CLIA#45D [id number] 11/07 CBC w/aut o diff with refle x IG % % 0.0 0.5 0.4 FINAL Luis Tucker Whole Blood [facility].[address] [facility] [address] [place] [address] CLIA#45D [id number] 11/07 CBC w/aut o diff with refle x IG # 10^3/u L 0.0 0.03 0.02 FINAL Luis Tucker Whole Blood [facility].52 [address] [facility] [address] [place] [address] CLIA#45D [id number] 11/07 CBC w/aut o diff with refle x LY % % 15.0 41.0 19.0 FINAL Luis Tucker Whole Blood [facility].52 [address] [facility] [address] [place] [address] CLIA#45D [id number] 11/07 CBC w/aut o diff with refle x LY # 10^3/u L 1.2 3.4 0.87 Low FINAL Luis Tucker Whole Blood [facility].52 [address] [facility] [address] [place] [address] CLIA#45D [id number] 11/07 CBC w/aut o diff with refle x MO % % 3.0 11.0 9.8 FINAL Luis Tucker Whole Blood [facility].52 [address] [facility] [address] [place] [address] CLIA#45D [id number] 11/07 CBC w/aut o diff with refle x MO # 10^3/u L 0.0 1.0 0.45 FINAL Luis Tucker Whole Blood [facility].52 [address] [facility] [address] [place] [address] CLIA#45D [id number] 11/07 CBC w/aut o diff with refle x EO % % 0.0 3.0 9.6 High FINAL Luisbulmaro Tucker Whole Blood [facility].52 [address] [facility] [address] [place] [address] CLIA#45D [id number] 11/07 CBC w/aut o diff with refle x EO # 10^3/u L 0.0 0.3 0.44 High FINAL Luis Tucker Whole Blood [facility].52 [address] [facility] [address] [place] [address] CLIA#45D [id number] 11/07 CBC w/aut o diff with refle x BA % % 0.0 1.0 1.5 High FINAL Luis Tucker Whole Blood [facility].[address] [facility] [address] [place] [address] CLIA#45D [id number] 11/07 CBC w/aut o diff with refle x BA # 10^3/u L 0.0 0.2 0.07 FINAL Luisbulmaro Tucker Whole Blood [facility].52 [address] [facility] [address] [place] [address] CLIA#45D [id number] 11/07 CBC w/aut o diff with refle x NRBC, % % 0.0 0.2 0.0 FINAL Luis Brown Whole Blood [facility].[address] [facility] [address] [place] [address] CLIA#45D [id number] 11/07 CBC w/aut o diff with refle x NRBC, absol [place], x 10^3/ uL 10^3/u L 0.0 0.01 0.00 FINAL Luis [facility] Whole Blood [facility].52 [address] [facility] e [address] [place] [address] .[place] [address] CLIA#45D [id number] 11/07 SPEP with immun ofixa tion Total prote in g/dL 6.1 8.1 6.4 FINAL Luis [facility] [place] [address] [address] [address] 11/07 SPEP with immun ofixa tion NOHEMI inter preta tion Results Below Normal pattern. No monoclona l proteins detected. FINAL Luis Brown [facility] [place] [address] [address] [address] 11/07 SPEP with immun ofixa tion Album in, SPE g/dL 3.8 4.8 3.4 Low FINAL [facility].[address] [place] [address] [address] [address] 11/07 SPEP with immun ofixa tion Alpha -1 globu ashley g/dL 0.2 0.3 0.3 FINAL [facility] [place] [address] [address] [address] 11/07 SPEP with immun ofixa tion Alpha -2 globu ashley g/dL 0.5 0.9 0.7 FINAL [facility] [place] [address] [address] [address] 11/07 SPEP with immun ofixa tion Beta- 1 g/dL 0.4 0.6 0.4 FINAL [facility] [place] [address] [address] [address] 11/07 SPEP with immun ofixa tion Beta- 2 g/dL 0.2 0.5 0.4 FINAL [facility] [place] [address] [address] [address] 11/07 SPEP with immun ofixa tion Gamma globu ashley g/dL 0.8 1.7 1.1 FINAL [facility] [place] [address] [address] [address] 11/07 SPEP with immun ofixa tion SPE inter preta tion Results Below Abnormal appearing gamma globulin peak, possibly monoclona l. If indicated ,recommen d immunotyp ing (Test Code: [id number]) for further evaluatio n. If the SPEPwas ordered with reflex, immunotyp ing will be resulted upon completio n. FINAL Luis [facility] [address] [address] [address] 11/07 CMP Chlor loly mmol/L 97.0 107.0 106 FINAL [facility].52 36 [facility] e [address] [place] [address] CLIA#45D [id number] 11/07 CMP CO2 mmol/L 21.0 32.0 28.0 FINAL [facility].52 36 [facility] e [address] [place] [address] CLIA#45D [id number] 11/07 CMP Gluco se mg/dL 74.0 106.0 74 FINAL [facility].[address] [facility] e [address] [place] [address] CLIA#45D [id number] 11/07 CMP BUN mg/dL 7.0 18.0 35 High FINAL [facility].[address] [facility] [address] [address] [place] [address] CLIA#45D [id number] 11/07 CMP Creat inine , mg/dL mg/dL 0.55 1.3 1.41 High FINAL [facility].[address] [facility] [address] [place] [address] CLIA#45D [id number] 11/07 CMP GFR estim ate mil/mi n/1.73 m2 38 Low Result based on the eGFR 2020 calculati on.60-89 mL/min/1. 73m^2 without kidney damage may be normal.60 -89 mL/min/1. 73m^2 for 3 months or more, along with kidney damage, may indicate early kidney disease.C alculatio n modified to the 2020 formula effective 01/16/23. FINAL [facility].[address] [facility] [address] [address] [place] [address] CLIA#45D [id number] 11/07 CMP BUN/C reati nine ratio 6.0 25.0 24.8 FINAL [facility].52 36 [facility] [address] [place] [address] CLIA#45D [id number] 11/07 CMP Calci um mg/dL 8.5 10.1 9.7 FINAL [facility].52 36 [facility] e [address] [place] [address] CLIA#45D [id number] 11/07 CMP Album in g/dL 3.4 5.0 3.1 Low FINAL [facility].52 36 [facility] e [address] [place] [address] CLIA#45D [id number] 11/07 CMP Total prote in g/dL 6.4 8.2 7.3 FINAL [facility].[address] [facility] [address] [address] [place] [address] CLIA#45D [id number] 11/07 CMP Globu ashley g/dL 2.2 4.2 4.2 FINAL [facility].[address] [facility] [address] [address] [place] [address] CLIA#45D [id number] 11/07 CMP A/G ratio 0.8 2.0 0.7 Low FINAL [facility].52 36 [facility] [address] [place] [address] CLIA#45D [id number] 11/07 CMP Bilir ubin, total mg/dL 0.2 1.0 0.6 FINAL [facility].52 36 [facility] e [address] [place] [address] CLIA#45D [id number] 11/07 CMP Alkal ine phosp hatas e U/L 46.0 116.0 100 FINAL [facility].[address] [facility] [address] [place] [address] CLIA#45D [id number] 11/07 CMP AST/S GOT U/L 15.0 37.0 26 FINAL [facility].[address] [facility] [address] [place] [address] CLIA#45D [id number] 11/07 CMP ALT/S GPT U/L 14.0 59.0 27 FINAL [facility].[address] [facility] [address] [place] [address] CLIA#45D [id number] 11/07 CMP Sodiu m mmol/L 136.0 145.0 143 FINAL [facility].52 [address] [facility] [address] [place] [address] CLIA#45D [id number] 11/07 CMP Potas sium mmol/L 3.5 5.1 4.3 FINAL [facility].52 [address] [facility] [address] [place] [address] CLIA#45D [id number] 11/07 Penrose /robbins da with K/L ratio , free, serum (mg/d L) Penrose light chain , free mg/L 3.3 19.4 73.5 High FINAL [facility] [facility] [address] [address] 11/07 Penrose /robbins da with K/L ratio , free, serum (mg/d L) Lambd a light chain , free mg/L 5.7 26.3 35.8 High FINAL [facility]2 [address] [facility] [address] [address] 11/07 Penrose /robbins da with K/L ratio , free, [...] to therapy of these disorders . FINAL [facility].2 [address] [address] [address] [address] Medications Date Name Route Dose Frequency Instructions [...] Notes Section * Nurse Note for: 22-FEB-23 [facility] Nurse Note Print Location: Unknown Date/Time Printed: 01/28/2025 18:34 ([facility]) Patient: JAMESON DTOSON Sex: Female : 1945 Date of Service: [...] Discharge-Ambulatory, with assistive device Entered By Ceci Torres RN, Sr-OCN on 16:00 Medication Administration [...] mg Amount in mL: 15 Pharmacy dispense: [facility]: [id number] Dispense/Waste: 300/0 mg Given Dose/Discard: 300/0 mg Start Time: 13:09, Entered By: Ceci Torres RN, Sr-KELY, Stop Time: 14:39, Entered By: Ceci Torres RN, Sr-KELY Admix Fluid: 0.9 % sodium chloride, Admix Fluid Volume: 250mL, Total Volume: 265mL * Nurse Note for: 16-FEB-23 [facility] Nurse Note Print Location: Unknown Date/Time Printed: 01/28/2025 18:34 ([facility]) Patient: JAEMSON DOTSON Sex: Female : 1945 Date of [...] mg Amount in mL: 15 Pharmacy dispense: [facility]: [id number] Dispense/Waste: 300/0 mg Given Dose/Discard: 300/0 mg Start Time: 08:35, Entered By: Ceci Ohara, Stop Time: 10:05, Entered By: Ceci Ohara Admix Fluid: 0.9 % sodium chloride, Admix Fluid Volume: 250mL, Total Volume: 265mL * Nurse Note for: 04-FEB-23 [facility] Nurse Note Print Location: Unknown Date/Time Printed: 01/28/2025 18:34 ([facility]) Patient: JAMESON DOTSON Sex: Female : 1945 [...] mg Amount in mL: 15 Pharmacy dispense: [facility]: [id number] Dispense/Waste: 300/0 mg Given Dose/Discard: 300/0 mg Start Time: 14:00, Entered By: Norah Singer LPN, Stop Time: 15:30, Entered By: Norah Singer LPN Admix Fluid: 0.9 % sodium chloride, Admix Fluid Volume: 250mL, Total Volume: 265mL * Nurse Note for: 28-JAN-23 [facility] Nurse Note Print Location: Unknown Date/Time Printed: 01/28/2025 18:34 ([facility]) Patient: JAMESON DOTSON Sex: Female : 1945 [...] Bruising, Entered By Norah Singer LPN on 16:30 Discharge Note : Comments-Therapy [...] mg Amount in mL: 15 Pharmacy dispense: [facility]: [id number] Dispense/Waste: 300/0 mg Given Dose/Discard: 300/0 mg Start Time: 13:39, Entered By: Norah Singer LPN, Stop Time: 15:09, Entered By: Norah Singer LPN Admix Fluid: 0.9 % sodium chloride, Admix Fluid Volume: 250mL, Total Volume: 265mL * Nurse Note for: 21-JAN-23 [facility] Nurse Note Print Location: Unknown Date/Time Printed: 01/28/2025 18:34 ([facility]) Patient: JAMESON DOTSON Sex: Female : 1945 [...] mg Amount in mL: 15 Pharmacy dispense: [facility]: [id number] Dispense/Waste: 300/0 mg Given Dose/Discard: 300/0 mg Start Time: 12:50, Entered By: Norah Singer LPN, Stop Time: 14:20, Entered By: Norah Singer LPN Admix Fluid: 0.9 % sodium chloride, Admix Fluid Volume: 250mL, Total Volume: 265mL * Nurse Note for: 30-DEC-22 [facility] Nurse Note Print Location: Unknown Date/Time Printed: 01/28/2025 18:34 ([facility]) Patient: JAMESON DOTSON Sex: Female : 1945 [...] on 09:30 * Nurse Note for: 24-DEC-21 [facility] Nurse Note Print Location: Unknown Date/Time Printed: 01/28/2025 18:34 ([facility]) Patient: JAMESON DOTSON Sex: Female : 1945 [...] . Entered By Tyrone Simeon CMA on 10:51 * Nurse Note for: 24-JUN-21 [facility] Nurse Note Print Location: Unknown Date/Time Printed: 01/28/2025 18:34 ([facility]) Patient: JAMESON DOTSON Sex: Female : 1945 [...]
--- OUTSIDE RECORDS SUMMARY | 2025-01-28 18:35 | XMS_ITS ---
Author Name Interface, F[employer] Address [place] [address] Organization [facility] Address [place] [address] Care Team Providers Care Health Program Specialist Name Role Phone Luis Tucker Unavailable Unavailable Allergies and Adverse Reactions Medication/Group [...] LABORDER SPEP with immuno fixation 04/26/2024 LABORDER [place]/lambda wit h K/L ratio, free, serum (mg/dL) 04/26/2024 LABORDER CBC w/auto diff with reflex 11/07/2024 LABORDER SPEP with immuno fixation 11/07/2024 LABORDER CBC w/auto diff with reflex 11/07/2024 LABORDER [place]/lambda wit h K/L ratio, free, serum (mg/dL) 11/07/2024 LABORDER CMP 11/07/2024 LABORDER Iron, TIBC, Ferr itin panel 05/16/2025 LABORDER CBC w/auto diff with reflex 05/16/2025 LABORDER SPEP with immuno fixation 05/16/2025 LABORDER CMP 05/16/2025 LABORDER [place]/lambda wit h K/L ratio, free, serum (mg/dL) 05/16/2025 LABORDER Iron, TIBC, Ferr itin panel Reason for Visit LAB OV Encounters Date Name 04/26/2024 Anemia (disorder) 04/26/2024 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 No monoclona l proteins detected. FINAL [facility] [place] [address] [address] [address] 04/26 SPEP with immun ofixa tion Album in, SPE g/dL 3.8 4.8 3.6 Low FINAL [facility] [place] [address] [address] 12[place] [address] 04/26 SPEP with immun ofixa tion Alpha -1 globu ashley g/dL 0.2 0.3 0.3 FINAL [facility] [place] [address] [address] 12[place] [address] 04/26 SPEP with immun ofixa tion Alpha -2 globu ashley g/dL 0.5 0.9 0.8 FINAL [facility] [place] [address] [address] 12[place] [address] 04/26 SPEP with immun ofixa tion Beta- 1 g/dL 0.4 0.6 0.5 FINAL [facility] [place] [address] [address] 12[place] [address] 04/26 SPEP with immun ofixa tion Beta- 2 g/dL 0.2 0.5 0.4 FINAL [facility] [place] [address] 12.[place] [address] 04/26 SPEP with immun ofixa tion Gamma globu ashley g/dL 0.8 1.7 1.5 FINAL Mary Chisa lilia [facility] [place] [address] [place] [address] [address] 04/26 SPEP with immun ofixa tion SPE inter preta tion Results Below Abnormal appearing globulin peak, possibly monoclona l. If indicated , recommend immunotyp ing (Test Code: IMTYPB) for further evaluatio n. If the SPEP wasordere d with reflex, immunotyp ing will be resulted upon completio n. FINAL [facility] [address] [address] [address] [address] 04/26 [place] /rodriguez da with K/L ratio , free, serum (mg/d L) [place] light chain , free mg/L 3.3 19.4 86.9 High FINAL Mary John[facility]isa l[facility] [place] [address] [place] [address] [address] 04/26 [place] /rodriguez da with K/L ratio , free, serum (mg/d L) [place] a light chain , free mg/L 5.7 26.3 37.3 High FINAL Mary Johnanisa l[facility] [place] [address] [place] [address] [address] 04/26 [place] /rodriguez da with K/L ratio , free, serum (mg/d L) Free K/L ratio Ratio 0.26 1.65 2.33 High (Note)Hrajinder e kappa/tracy bda ratio in serum of [...] [facility] [address] [address] [place] 12[place] [address] 04/26 CBC w/aut o diff with refle x WBC 10^3/u L 4.8 10.8 6.4 FINAL Mary Pal[facility]isa [facility] Whole [facility].[address] [facility] [address] [place] [address] CLIA#45D [id number] 04/26 CBC w/aut o diff with refle x RBC 10^6/u L 4.2 5.4 4.06 Low FINAL Mary [facility].52 [address] [facility] [address] [place] [address] CLIA#45D [id number] 04/26 CBC w/aut o diff with refle x HGB g/dL 12.0 16.0 11.1 Low FINAL Mary [facility].52 [address] [facility] [address] [place] [address] CLIA#45D [id number] 04/26 CBC w/aut o diff with refle x HCT % 37.0 47.0 37.0 FINAL Mary Pal[facility]isa [facility].52 [address] [facility] [address] [place] [address] CLIA#45D [id number] 04/26 CBC w/aut o diff with refle x MCV fL 81.0 99.0 91.1 FINAL Mary Pal[facility]isa [facility].52 [address] [facility] [address] [place] [address] CLIA#45D [id number] 04/26 CBC w/aut o diff with refle x MCH pg 27.0 31.0 27.3 FINAL Mary [facility].52 [address] [facility] [address] [place] [address] CLIA#45D [id number] 04/26 CBC w/aut o diff with refle x MCHC g/dL 33.0 37.0 30.0 Low FINAL Mary [facility]isa [facility].52 [address] [facility] [address] [place] [address] CLIA#45D [id number] 04/26 CBC w/aut o diff with refle x PLT 10^3/u L 130.0 400.0 256 FINAL Mary [facility]isa [facility].52 [address] [facility] [address] [place] [address] CLIA#45D [id number] 04/26 CBC w/aut o diff with refle x MPV fL 9.4 12.3 10.7 FINAL Mary [facility]isa [facility].52 [address] [facility] [facility] [address] [place] [address] CLIA#45D [id number] 04/26 CBC w/aut o diff with refle x RDW % 10.5 14.5 15.9 High FINAL Mary [facility]isa [facility].52 [address] [facility] [address] [place] [address] CLIA#45D [id number] 04/26 CBC w/aut o diff with refle x Jordy % % 40.0 77.0 56.0 FINAL [facility].52 [address] [facility] [address] [place] [address] CLIA#45D [id number] 04/26 CBC w/aut o diff with refle x Jordy # (ANC) 10^3/u L 1.5 6.5 3.57 FINAL [facility].52 [address] [facility] [address] [place] [address] CLIA#45D [id number] 04/26 CBC w/aut o diff with refle x IG % % 0.0 0.5 0.3 FINAL Mary [facility]isa [facility].52 [address] [facility] [address] [place] [address] CLIA#45D [id number] 04/26 CBC w/aut o diff with refle x IG # 10^3/u L 0.0 0.03 0.02 FINAL Mary [facility]isa [facility].52 [address] [facility] [address] [place] [address] CLIA#45D [id number] 04/26 CBC w/aut o diff with refle x LY % % 15.0 41.0 19.6 FINAL Mary [facility].52 [address] [facility] [address] [place] [address] CLIA#45D [id number] 04/26 CBC w/aut o diff with refle x LY # 10^3/u L 1.2 3.4 1.25 FINAL Mary [facility]isa [facility].52 [address] [facility] [address] [place] [address] CLIA#45D [id number] 04/26 CBC w/aut o diff with refle x MO % % 3.0 11.0 9.7 FINAL Mary [facility]isa [facility].52 [address] [facility] [address] [place] [address] CLIA#45D [id number] 04/26 CBC w/aut o diff with refle x MO # 10^3/u L 0.0 1.0 0.62 FINAL Mary Palanisa my [facility].52 [address] [facility] [address] [place] [address] CLIA#45D [id number] 04/26 CBC w/aut o diff with refle x EO % % 0.0 3.0 13.0 High FINAL Mary Pal[facility]isa [facility].52 [address] [facility] [address] [place] [address] CLIA#45D [id number] 04/26 CBC w/aut o diff with refle x EO # 10^3/u L 0.0 0.3 0.83 High FINAL Mary [facility]isa [facility].52 [address] [facility] [address] [place] [address] CLIA#45D [id number] 04/26 CBC w/aut o diff with refle x BA % % 0.0 1.0 1.4 High FINAL Mary Palanisa my Whole [facility].52 [address] [facility] [address] [place] [address] CLIA#45D [id number] 04/26 CBC w/aut o diff with refle x BA # 10^3/u L 0.0 0.2 0.09 FINAL Mary Palanisa [facility].52 [address] [facility] [address] [place] [address] CLIA#45D [id number] 04/26 CBC w/aut o diff with refle x NRBC, % % 0.0 0.2 0.0 FINAL Mary Palanisa [facility].52 [address] [facility] [facility] [address] [place] [address] CLIA#45D [id number] 04/26 CBC w/aut o diff with refle x NRBC, absol jose, x 10^3/ uL 10^3/u L 0.0 0.01 0.00 FINAL Mary [facility]isa [facility].52 [address] [facility] [address] [place] [address] CLIA#45D [id number] 04/26 CMP Sodiu m mmol/L 136.0 145.0 140 FINAL Mary Pal[facility]isa [facility] [address] [place] [address] CLIA#45D [id number] 04/26 CMP Potas sium mmol/L 3.5 5.1 4.9 FINAL Mary Palanisa my Plasma [facility].52 [address] [facility] [address] [place] [address] CLIA#45D [id number] 04/26 CMP Chlor loly mmol/L 97.0 107.0 104 FINAL Mary Palanisa my [facility].52 36 [facility] [address] [place] [address] CLIA#45D [id number] 04/26 CMP CO2 mmol/L 21.0 32.0 26.0 FINAL Mary Palanisa my [facility].52 36 [facility] [address] [place] [address] CLIA#45D [id number] 04/26 CMP Gluco se mg/dL 74.0 106.0 120 High FINAL Mary Palanisa my [facility].52 [address] [facility] [address] [place] [address] CLIA#45D [id number] 04/26 CMP BUN mg/dL 7.0 18.0 37 High FINAL Mary Palanisa [facility].52 [address] [facility] [address] [place] [address] CLIA#45D [id number] 04/26 CMP Creat inine , mg/dL mg/dL 0.55 1.3 1.42 High FINAL Mary Palanisa my [facility].52 36 [facility] [address] [place] [address] CLIA#45D [id number] 04/26 CMP GFR estim ate mil/mi n/1.73 m2 38 Low Result based on the eGFR 2020 calculati on.60-89 mL/min/1. 73m^2 without kidney damage may be normal.60 -89 mL/min/1. 73m^2 for 3 months or more, along with kidney damage, may indicate early kidney disease.C alculatio n modified to the 2020 formula effective 01/16/23. FINAL Mary Palanisa my [facility].52 36 [facility] [address] [place] [address] CLIA#45D [id number] 04/26 CMP BUN/C reati nine ratio 6.0 25.0 26.1 High FINAL Mary Palanisa my Plasma [facility].52 [address] [facility] [address] [place] [address] CLIA#45D [id number] 04/26 CMP Album in g/dL 3.4 5.0 3.2 Low FINAL Mary Palanisa my [facility].52 [address] [facility] [address] [place] [address] CLIA#45D [id number] 04/26 CMP Calci um mg/dL 8.5 10.1 9.1 FINAL Mary Palanisa my [facility].52 [address] [facility] [address] [place] [address] CLIA#45D [id number] 04/26 CMP Total prote in g/dL 6.4 8.2 7.8 FINAL Amry Palanisa my Plasma [facility].52 [address] [facility] [address] [place] [address] CLIA#45D [id number] 04/26 CMP Globu ashley g/dL 2.2 4.2 4.6 High FINAL Mary Palanisa my [facility].52 [address] [facility] [address] [place] [address] CLIA#45D [id number] 04/26 CMP A/G ratio 0.8 2.0 0.7 Low FINAL Mary Palanisa my Plasma [facility].52 [address] [facility] [address] [place] [address] CLIA#45D [id number] 04/26 CMP Bilir ubin, total mg/dL 0.2 1.0 0.5 FINAL Mary Palanisa my [facility].[address] [facility] [facility] [address] [place] [address] CLIA#45D [id number] 04/26 CMP Alkal ine phosp hatas e U/L 46.0 116.0 93 FINAL Mary Palanisa my Plasma [facility].52 [address] [address] [place] [address] CLIA#45D [id number] 04/26 CMP AST/S GOT U/L 15.0 37.0 17 FINAL Mary Palanisa my [facility].52 [address] [facility] [address] [place] [address] CLIA#45D [id number] 04/26 CMP ALT/S GPT U/L 14.0 59.0 26 FINAL Mary Palanisa my Plasma [facility].52 [address] [facility] [address] [place] [address] CLIA#45D [id number] 04/26 TIBC and perce nt sat w/ iron panel Iron ug/dL 65.0 175.0 30.0 Low FINAL Mary Palanisa my Serum [facility].52 [address] [address] [place] [address] CLIA#45D [id number] 04/26 TIBC and perce nt sat w/ iron panel TIBC ug/dL 250.0 450.0 283.0 FINAL Mary Palanisa my Serum [facility].52 [address] [facility] [address] [place] [address] CLIA#45D [id number] 04/26 TIBC and perce nt sat w/ iron panel Iron, % satur ation % 15.0 50.0 11 Low FINAL Mary Palanisa [facility] Serum [facility].52 [address] [facility] [address] [place] [address] CLIA#45D [id number] 04/26 Juliet tin panel Juliet tin ng/mL 8.0 252.0 266 High FINAL Mary Palanisa my Serum [facility].52 [address] [facility] [address] [place] [address] CLIA#45D [id number] 11/07 [place] /rodriguez da with K/L ratio , free, serum (mg/d L) [place] light chain , free mg/L 3.3 19.4 73.5 High FINAL [facility] [place] [address] [address] [address] 11/07 [place] /rodriguez da with K/L ratio , free, serum (mg/d L) [place] a light chain , free mg/L 5.7 26.3 35.8 High FINAL [facility] [place] [address] [place] [address] [address] 11/07 [place] /rodriguez da with K/L ratio , free, [...] therapy of these disorders . FINAL Luis Tucker [facility] [place] [address] [address] 12[place] [address] 11/07 SPEP with immun ofixa tion Total prote in g/dL 6.1 8.1 6.4 FINAL [facility] [place] [address] [address] 12[place] [address] 11/07 SPEP with immun ofixa tion NOHEMI inter preta tion Results Below Normal pattern. No monoclona l proteins detected. FINAL Luis Tucker [facility] [place] [address] [address] 12[place] [address] 11/07 SPEP with immun ofixa tion Album in, SPE g/dL 3.8 4.8 3.4 Low FINAL [facility] [place] [address] [place] 12[place] [address] 11/07 SPEP with immun ofixa tion Alpha -1 globu ashley g/dL 0.2 0.3 0.3 FINAL [facility].2 [address] [address] [address] [address] 11/07 SPEP with immun ofixa tion Alpha -2 globu ashley g/dL 0.5 0.9 0.7 FINAL [facility].2 [address] [address] [address] 12[place] [address] 11/07 SPEP with immun ofixa tion Beta- 1 g/dL 0.4 0.6 0.4 FINAL [facility].2 [address] [address] [place] [address] [address] 11/07 SPEP with immun ofixa tion Beta- 2 g/dL 0.2 0.5 0.4 FINAL [facility].2 [address] [address] [address] 12[place] [address] 11/07 SPEP with immun ofixa tion Gamma globu ashley g/dL 0.8 1.7 1.1 FINAL [facility].2 [address] [address] [place] 12[place] [address] 11/07 SPEP with immun ofixa tion SPE inter preta tion Results Below Abnormal appearing gamma globulin peak, possibly monoclona l. If indicated ,recommen d immunotyp ing (Test Code: IMTYPB) for further evaluatio n. If the SPEPwas ordered with reflex, immunotyp ing will be resulted upon completio n. FINAL [facility].2 [address] [address] [place] [address] [address] 11/07 Juliet tin panel Juliet tin ng/mL 8.0 252.0 228 FINAL [facility].[address] [facility] [address] [place] [address] CLIA#45D [id number] 11/07 TIBC and perce nt sat w/ iron panel Iron ug/dL 50.0 170.0 60.0 FINAL [facility].[address] [facility] [address] [place] [address] CLIA#45D [id number] 11/07 TIBC and perce nt sat w/ iron panel TIBC ug/dL 250.0 450.0 311.0 FINAL [facility].52 36 [facility] e [address] [place] [address] CLIA#45D [id number] 11/07 TIBC and perce nt sat w/ iron panel Iron, % satur ation % 15.0 50.0 19 FINAL [facility].52 36 [facility] [address] [place] [address] CLIA#45D [id number] 11/07 CMP Chlor loly mmol/L 97.0 107.0 106 FINAL [facility].52 [address] [facility] [address] [place] [address] CLIA#45D [id number] 11/07 CMP CO2 mmol/L 21.0 32.0 28.0 FINAL [facility].52 [address] [facility] [address] [place] [address] CLIA#45D [id number] 11/07 CMP Gluco se mg/dL 74.0 106.0 74 FINAL [facility].52 [address] [facility] [address] [place] [address] CLIA#45D [id number] 11/07 CMP BUN mg/dL 7.0 18.0 35 High FINAL [facility].52 [address] [facility] [address] [place] [address] CLIA#45D [id number] 11/07 CMP Creat inine , mg/dL mg/dL 0.55 1.3 1.41 High FINAL [facility].52 [address] [facility] [address] [place] [address] CLIA#45D [id number] 11/07 CMP GFR estim ate mil/mi n/1.73 m2 38 Low Result based on the eGFR 2020 calculati on.60-89 mL/min/1. 73m^2 without kidney damage may be normal.60 -89 mL/min/1. 73m^2 for 3 months or more, along with kidney damage, may indicate early kidney disease.C alculatio n modified to the 2020 formula effective 01/16/23. FINAL [facility].[address] [facility] [address] [place] [address] CLIA#45D [id number] 11/07 CMP BUN/C reati nine ratio 6.0 25.0 24.8 FINAL [facility].52 [facility] [address] [place] [address] CLIA#45D [id number] 11/07 CMP Calci um mg/dL 8.5 10.1 9.7 FINAL [facility].[address] [facility] [address] [place] [address] CLIA#45D [id number] 11/07 CMP Album in g/dL 3.4 5.0 3.1 Low FINAL [facility].[address] [address] [place] [address] CLIA#45D [id number] 11/07 CMP Total prote in g/dL 6.4 8.2 7.3 FINAL [facility].[address] [facility] [facility] [address] [place] [address] CLIA#45D [id number] 11/07 CMP Globu ashley g/dL 2.2 4.2 4.2 FINAL [facility].[address] [facility] [facility] [address] [place] [address] CLIA#45D [id number] 11/07 CMP A/G ratio 0.8 2.0 0.7 Low FINAL [facility].[address] [facility] [address] [place] [address] CLIA#45D [id number] 11/07 CMP Bilir ubin, total mg/dL 0.2 1.0 0.6 FINAL [facility] Plasma [facility].52 [facility] [address] [place] [address] CLIA#45D [id number] 11/07 CMP Alkal ine phosp hatas e U/L 46.0 116.0 100 FINAL [facility] Plasma [facility].52 [facility] [address] [place] [address] CLIA#45D [id number] 11/07 CMP AST/S GOT U/L 15.0 37.0 26 FINAL [facility] Plasma [facility].52 [facility] [address] [place] [address] CLIA#45D [id number] 11/07 CMP ALT/S GPT U/L 14.0 59.0 27 FINAL [facility].52 [facility] [address] [place] [address] CLIA#45D [id number] 11/07 CMP Sodiu m mmol/L 136.0 145.0 143 FINAL [facility].52 [facility] [address] [place] [address] CLIA#45D [id number] 11/07 CMP Potas sium mmol/L 3.5 5.1 4.3 FINAL [facility].52 [facility] [address] [place] [address] CLIA#45D [id number] 11/07 CBC w/aut o diff with refle x WBC 10^3/u L 4.8 10.8 4.6 Low FINAL [facility] Whole Blood [facility].52 [address] [facility] [address] [place] [address] CLIA#45D [id number] 11/07 CBC w/aut o diff with refle x RBC 10^6/u L 4.2 5.4 4.23 FINAL [facility] Whole Blood [facility].[address] [facility] [address] [place] [address] CLIA#45D [id number] 11/07 CBC w/aut o diff with refle x HGB g/dL 12.0 16.0 12.4 FINAL Luis Tucker Whole Blood [facility].52 [address] [facility] [address] [place] [address] CLIA#45D [id number] 11/07 CBC w/aut o diff with refle x HCT % 37.0 47.0 40.8 FINAL Luis Tucker Whole Blood [facility].52 [address] [facility] [address] [place] [address] CLIA#45D [id number] 11/07 CBC w/aut o diff with refle x MCV fL 81.0 99.0 96.5 FINAL Luis Tucker Whole Blood [facility].52 [address] [facility] [facility] [address] [place] [address] CLIA#45D [id number] 11/07 CBC w/aut o diff with refle x MCH pg 27.0 31.0 29.3 FINAL Luis Tucker Whole Blood [facility].52 [address] [facility] [facility] [address] [place] [address] CLIA#45D [id number] 11/07 CBC w/aut o diff with refle x MCHC g/dL 33.0 37.0 30.4 Low FINAL Luis Tucker Whole Blood [facility].52 [address] [facility] [address] [place] [address] CLIA#45D [id number] 11/07 CBC w/aut o diff with refle x PLT 10^3/u L 130.0 400.0 216 FINAL Luis Tucker Whole Blood [facility].52 [address] [facility] [address] [place] [address] CLIA#45D [id number] 11/07 CBC w/aut o diff with refle x MPV fL 9.4 12.3 10.3 FINAL Luis Tucker Whole Blood [facility].[address] [facility] [address] [place] [address] CLIA#45D [id number] 11/07 CBC w/aut o diff with refle x RDW % 10.5 14.5 14.0 FINAL Luis Tucker Whole Blood [facility].[address] [place] [address] CLIA#45D [id number] 11/07 CBC w/aut o diff with refle x Jordy % % 40.0 77.0 59.7 FINAL Luis Tucker Whole Blood [facility].[address] [place] [address] CLIA#45D [id number] 11/07 CBC w/aut o diff with refle x Jordy # (ANC) 10^3/u L 1.5 6.5 2.73 FINAL Luis Tucker Whole Blood [facility].52 [address] [facility] [address] [place] [address] CLIA#45D [id number] 11/07 CBC w/aut o diff with refle x IG % % 0.0 0.5 0.4 FINAL Luis Tucker Whole Blood [facility].52 [address] [facility] [address] [place] [address] CLIA#45D [id number] 11/07 CBC w/aut o diff with refle x IG # 10^3/u L 0.0 0.03 0.02 FINAL Luis Tucker Whole [facility].[address] [facility] [address] [place] [address] CLIA#45D [id number] 11/07 CBC w/aut o diff with refle x LY % % 15.0 41.0 19.0 FINAL Luis Tucker Whole Blood [facility].[address] [place] [address] CLIA#45D [id number] 11/07 CBC w/aut o diff with refle x LY # 10^3/u L 1.2 3.4 0.87 Low FINAL Luis Tucker Whole Blood [facility].[address] [place] [address] CLIA#45D [id number] 11/07 CBC w/aut o diff with refle x MO % % 3.0 11.0 9.8 FINAL Luis Brown Whole Blood [facility].52 [address] [facility] [address] [place] [address] CLIA#45D [id number] 11/07 CBC w/aut o diff with refle x MO # 10^3/u L 0.0 1.0 0.45 FINAL [facility] Whole Blood [facility].[address] [facility] [address] [place] [address] CLIA#45D [id number] 11/07 CBC w/aut o diff with refle x EO % % 0.0 3.0 9.6 High FINAL Luis Brown Whole Blood [facility].52 [address] [facility] [address] [place] [address] CLIA#45D [id number] 11/07 CBC w/aut o diff with refle x EO # 10^3/u L 0.0 0.3 0.44 High FINAL Luis Brown Whole Blood [facility].52 [address] [facility] [address] [place] [address] CLIA#45D [id number] 11/07 CBC w/aut o diff with refle x BA % % 0.0 1.0 1.5 High FINAL Luis Brown Whole Blood [facility].52 [address] [facility] [address] [place] [address] CLIA#45D [id number] 11/07 CBC w/aut o diff with refle x BA # 10^3/u L 0.0 0.2 0.07 FINAL Luis Brown Whole Blood [facility].[address] [place] .[place] [address] CLIA#[id number] 11/07 CBC w/aut o diff with refle x NRBC, % % 0.0 0.2 0.0 FINAL Luis Brown Whole Blood [facility].[address] [place] .[place] [address] CLIA#[id number] 11/07 CBC w/aut o diff with refle x NRBC, absol jose, x 10^3/ uL 10^3/u L 0.0 0.01 0.00 FINAL Luis Tucker Whole Blood [facility].[address] [place] [address] CLIA#[id number] Medications Date Name Route Dose Frequency Instructions [...] iron Active Vital Signs Date Type Value 04/26/2024 Heart Beat 90.00 04/26/2024 Respiratory Rate 16.00 04/26/2024 Body Temperature 97.50 04/26/2024 BSA 1.57 04/26/2024 BMI 22.90 04/26/2024 Height 62.00 04/26/2024 Weight 125.20 04/26/2024 Pain Scale 0.00 04/26/2024 Intravascular Systolic 97 04/26/2024 Intravascular Diastolic 60 04/26/2024 Oxygen Saturation 96.00 11/07/2024 Body Temperature 98.10 11/07/2024 BMI 24.69 11/07/2024 Height 62.00 11/07/2024 Weight 135.00 11/07/2024 BSA 1.62 11/07/2024 Intravascular Systolic 92 11/07/2024 Intravascular Diastolic 56 11/07/2024 Oxygen Saturation 95.00 11/07/2024 Respiratory Rate 16.00 11/07/2024 Heart Beat 91.00 11/07/2024 Pain Scale 0.00 Notes Section * [facility] Up - [address] [address] P:?? PATIENT:??JAMESON DOTSON :??1945 Date of Service:??04/26/2024 Referring Provider: Edmond Villarreal MD/Kadeem Aguayo MD Chief Complaint: Here for evaluation anemia and monoclonal gammopathy Principal Diagnosis: * Monoclonal gammopathy of uncertain [...] insufficiency and proteinuria.?? She was seen by landscape architecture professor and work-up revealed the presence of monoclonal gammopathy with a ratio of 2, kappa restricted, hence prompting the referral.?? These labs were from 10/22/2020. She has.hx of bariatric sleeve 20 years ago.?Status post gastric bypass surgery??on September 2023. She is asymptomatic and remains in her baseline status of health. February 2023 1 course of IV iron Interval History: 04/26/2024: Patient presents today for follow-up of anemia and monoclonal gammopathy.?? She is asymptomatic today??and denies any new symptoms or complaints.?? Past Medical History: Hypertension, hypothyroidism, GERD, hyperlipidemia, depression, CHF, on dual antiplatelet therapy, COPD, former smoker, quit in 2002, proteinuria and mild renal insufficiency followed by landscape architecture professor Past Surgical History: ? Past Surgical History*: SAND FILLER History: Medications: Medications reviewed and reconciled with patient. * Spironolactone Oral 25 mg tablet 1 TABLET(S) PO daily * Omeprazole Oral Delayed Release Tablet 20 mg tablet,delayed release (DR/EC) 1 TABLET(S), ENTERIC COATED PO daily * Paroxetine Oral 40 mg tablet 1 TABLET(S) PO daily * Aspirin Oral 81 mg 1 TABLET(S) PO daily * Farxiga (Dapagliflozin Oral) 10 mg tablet daily * Qkmyzpjxkxd-Mmeosrcsp-Lvpwamvt Inhaler 100 mcg-62.5 mcg-25 mcg/actuation 100-62.5-25 mcg blister with device 1 INHALATION(S) By inhalation as directed * Levothyroxine Oral 25 mcg tablet 1 TABLET(S) PO daily * Atorvastatin Oral 10 mg tablet 1 TABLET(S) PO daily Medications*: Allergies: * Sulfa (Sulfonamide Antibiotics) Allergies*: Smoking Status: Smoking Tobacco : none found; Smokeless Tobacco : none found; Vaping : none found Social History: No history of smoking or alcohol abuse.?? She has 3 adult children.?? 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 [...] aches Neurological:?? No focal neurological defects. Vitals: Height None Today; Weight None Today; Blood pressure: , Pulse: , Temperature: , Respirations: , Pain Scale: Karnofsky* 90% (Date: 07/07/2023) Physical Exam: CONSTITUTIONAL: [...] neurologic deficits?? PSYCH: normal mood ?? Labs: CBC LabResults 04/26/2024 10/27/2023 07/07/2023 04/08/2023 06/24/2022 CBC WBC x 10^3/uL 6.4 9.7 5.5 5.9 4.9 4.2 (L) RBC x 10^6/uL 4.06 (L) 3.48 (L) 3.76 (L) 3.90 (L) 3.66 (L) 3.76 (L) NRBC, absolute, x 10^3/uL 0 00 00 00 00 00 NRBC, % 0.0 0.0 0.0 0 0 0 HGB g/dL 11.1 (L) 10.0 (L) 11.3 (L) 12.0 10.6 (L) 11.0 (L) HCT % 37.0 32.4 (L) 35.5 (L) 38.2 33.8 (L) 34.9 (L) MCV fL 91.1 93.1 94.4 97.9 92.3 92.8 MCH pg 27.3 28.7 30.1 30.8 29.0 29.3 MCHC g/dL 30.0 (L) 30.9 (L) 31.8 (L) 31.4 (L) 31.4 (L) 31.5 (L) RDW % 15.9 (H) 15.3 (H) 13.2 15.8 (H) 14.3 13.7 PLT x 10^3/uL 256 446 (H) 277 234 294 224 MPV fL 10.7 10.2 10.3 10.4 10.1 10.7 Jordy % 56.0 64.4 44.9 60.9 43.4 LY % 19.6 14.6 (L) 29.0 24.4 31.7 MO % 9.7 10.7 11.6 (H) 9.4 13.6 (H) EO % 13.0 (H) 7.1 (H) 12.5 (H) 2.6 9.3 (H) IG % 0.3 2.10 (H) 1.10 (H) 1.20 (H) 0.60 (H) Jordy # (ANC) x 10^3/uL 3.57 6.2 2.5 3.6 2.1 BA % 1.4 (H) 1.1 (H) 0.9 1.5 (H) 1.4 (H) MO # x 10^3/uL 0.62 1.0 0.6 0.6 0.7 EO # x 10^3/uL 0.83 (H) 0.7 (H) 0.7 (H) 0.2 0.5 (H) BA # x 10^3/uL 0.09 0.1 0.1 0.1 0.1 IG # x 10^3/uL 0.02 0.20 (H) 0.06 (H) 0.07 (H) 0.03 LY # x 10^3/uL 1.25 1.4 1.6 1.4 1.5 Auto CBC comments See Manual Dif f Chemistries LabResults 04/26/2024 10/27/2023 07/07/2023 04/08/2023 06/24/2022 Chemistries Glucose mg/dL 120 (H) 88 115 (H) 107 102 BUN mg/dL 37 (H) 26 (H) 21 (H) 23 (H) 24 Creatinine mg/dL 1.44 (H) Creatinine, mg/dL 1.42 (H) 1.08 1.50 (H) 1.56 (H) BUN/Creatinine ratio 26.1 (H) 24.1 14.0 14.7 17 Sodium mmol/L 140 140 137 138 143 Potassium mmol/L 4.9 4.7 4.1 3.8 5.1 Chloride mmol/L 104 103 101 101 105 CO2 mmol/L 26.0 25 32 30 29 Anion gap, mmol/L 14 Calcium mg/dL 9.1 8.8 9.6 8.7 9.4 Albumin g/dL 3.2 (L) 2.7 (L) 2.9 (L) 2.9 (L) 3.7 Total protein g/dL 7.1; 7.8 6.8 6.5 7.1 6.4 Globulin g/dL 4.6 (H) 2.7 A/G ratio 0.7 (L) 0.7 (L) 0.8 0.7 (L) 1.4 Bilirubin, total mg/dL 0.5 0.3 0.5 0.6 0.5 Alkaline phosphatase U/L 93 89 83 99 92 AST/SGOT U/L 17 18 22 18 14 ALT/SGPT U/L 26 19 24 21 8 GFR estimate mL/min/1.73m2 38 (L) 53 (L) 36 (L) 32 (L) 38 (L) Labs*: Imaging: Problem List: * Monoclonal gammopathy [...] chain ratio remains stable but slightly abnormal.?? Patient is asymptomatic. ??Labs have been??stable, no evidence of disease progression. ??Will continue to monitor??once in 6 months. 2.?? Anemia.?Multifactorial. ??Anemia of chronic disease and renal insufficiency??and iron deficiency. ??She is not a candidate for darbepoetin.?Received IV iron in February 2023 with good response.?Drop in hemoglobin noted at October 2023 visit??likely from recent hospitalization sepsis and??recurrent surgeries. ???Hemoglobin noted to be improving today.?? Iron studies stable. ??Will continue to monitor. 3.?? Proteinuria/mild renal insufficiency, mild, stable?? .4.?? Other medical problems include hypertension, hypothyroidism, GERD, hyperlipidemia, depression, CHF, on dual antiplatelet therapy, COPD, former smoker, quit in 2002 . This note was created using a voice-recognition transcribing system. ??Incorrect words or phrases may have been missed during proofreading. ??Please interpret accordingly. Luis Tucker PA-C Send copy of note to: MD Edmond Hicks MD. Electronically signed by Luis Tucker PA-C 04/30/2024 18:09 CDT
--- OUTSIDE RECORDS SUMMARY | 2025-01-28 18:35 | XMS_ITS | Clinical Summary ---
Author Organization [facility] Address [address] [place] [address] Care Team Providers Care Mid Level Clinician Name Role Phone Unavailable Primary Care Provider Unavailabl e Social History Tobacco Use Types Packs/Day Years Used Date Smoking Tobacco: Never Assessed Comments Unknown Sex and Gender Information Value Date Recorded Sex Assigned at Not on file Legal Sex Female 8:58 AM CDT Gender Identity Not on file Sexual Orientation Not on file Plan of Treatment Not on file Insurance MEDICARE PART A&B MEDICARE, SUPPLEMENT
--- OUTSIDE RECORDS SUMMARY | 2025-01-28 18:35 | XMS_ITS ---
Author Name Interface, J0Nnmuysn lity Address [place] [address] Organization [facility] Address [place] [address] Care Team Providers Care Public Interviewer Name Role Phone Luis Tucker Unavailable Unavailable [...] LABORDER SPEP with immuno fixation 04/26/2024 LABORDER [place]/lambda wit h K/L ratio, free, serum (mg/dL) 04/26/2024 LABORDER CBC w/auto diff with reflex 11/07/2024 LABORDER SPEP with immuno fixation 11/07/2024 LABORDER CBC w/auto diff with reflex 11/07/2024 LABORDER [place]/lambda wit h K/L ratio, free, serum (mg/dL) 11/07/2024 LABORDER CMP 11/07/2024 LABORDER Iron, TIBC, Ferr itin panel 05/16/2025 LABORDER CBC w/auto diff with reflex 05/16/2025 LABORDER SPEP with immuno fixation 05/16/2025 LABORDER CMP 05/16/2025 LABORDER [place]/lambda wit h K/L ratio, free, serum (mg/dL) [...] FINAL Mary Palanisa my [facility] [place] [address] [address] 12.[place] [address] 04/26 SPEP with immun ofixa tion NOHEMI inter preta tion Results Below Normal pattern. No monoclona l proteins detected. FINAL Mary Palanisa [facility] [place] [address] [place] 12[place] [address] 04/26 SPEP with immun ofixa tion Album in, SPE g/dL 3.8 4.8 3.6 Low FINAL Mary Palanisa [facility] [place] [address] [place] 12[place] [address] 04/26 SPEP with immun ofixa tion Alpha -1 globu ashley g/dL 0.2 0.3 0.3 FINAL Mary Palanisa [facility] [place] [address] [place] 12.[place] [address] 04/26 SPEP with immun ofixa tion Alpha -2 globu ashley g/dL 0.5 0.9 0.8 FINAL Mary Palanisa [facility] [place] [address] [place] 12[place] [address] 04/26 SPEP with immun ofixa tion Beta- 1 g/dL 0.4 0.6 0.5 FINAL Mary Palanisa [facility] [place] [address] [place] 12[place] [address] 04/26 SPEP with immun ofixa tion Beta- 2 g/dL 0.2 0.5 0.4 FINAL Mary Palanisa [facility] [place] [address] 12.[place] [address] 04/26 SPEP with immun ofixa tion Gamma globu ashley g/dL 0.8 1.7 1.5 FINAL Mary Chisa lilia [facility] [place] [address] [place] 12[place] [address] 04/26 SPEP with immun ofixa tion SPE inter preta tion Results Below Abnormal appearing globulin peak, possibly monoclona l. If indicated , recommend immunotyp ing (Test Code: IMTYPB) for further evaluatio n. If the SPEP wasordere d with reflex, immunotyp ing will be resulted upon completio n. FINAL Mary Johnanisa my [facility]2 [address] [address] [address] [address] 04/26 [place] /rodriguez da with K/L ratio , free, serum (mg/d L) [place] light chain , free mg/L 3.3 19.4 86.9 High FINAL Mary Johnanisa liila [facility] [place] [address] [place] 12[place] [address] 04/26 [place] /rodriguez da with K/L ratio , free, serum (mg/d L) [place] a light chain , free mg/L 5.7 26.3 37.3 High FINAL Mary Johnanisa lilia [facility] [place] [address] [place] 12[place] [address] 04/26 [place] /rodriguez da with K/L ratio , free, [...] Mary Palanisa [facility]2 [address] [address] [place] 12[place] [address] 04/26 CBC w/aut o diff with refle x WBC 10^3/u L 4.8 10.8 6.4 FINAL Mary Palanisa my Whole Blood [facility].[address] [facility] e [address] [place] [address] CLIA#45D [id number] 04/26 CBC w/aut o diff with refle x RBC 10^6/u L 4.2 5.4 4.06 Low FINAL Mary Palanisa my Whole Blood [facility].[address] [facility] e [address] [place] [address] CLIA#45D [id number] 04/26 CBC w/aut o diff with refle x HGB g/dL 12.0 16.0 11.1 Low FINAL Mary Palanisa my Whole Blood [facility].[address] [facility] e [address] [place] [address] CLIA#45D [id number] 04/26 CBC w/aut o diff with refle x HCT % 37.0 47.0 37.0 FINAL Mary Palanisa my Whole Blood [facility].[address] [facility] e [address] [place] [address] CLIA#45D [id number] 04/26 CBC w/aut o diff with refle x MCV fL 81.0 99.0 91.1 FINAL Mary Palanisa my Whole Blood [facility].[address] [facility] e [address] [place] [address] CLIA#45D [id number] 04/26 CBC w/aut o diff with refle x MCH pg 27.0 31.0 27.3 FINAL Mary Palanisa my Whole Blood [facility].[address] [facility] e [address] [place] [address] CLIA#45D [id number] 04/26 CBC w/aut o diff with refle x MCHC g/dL 33.0 37.0 30.0 Low FINAL Mary Palanisa my Whole Blood [facility].[address] [facility] e [address] [place] [address] CLIA#45D [id number] 04/26 CBC w/aut o diff with refle x PLT 10^3/u L 130.0 400.0 256 FINAL Mary Palanisa my Whole Blood [facility].[address] [facility] e [address] [place] [address] CLIA#45D [id number] 04/26 CBC w/aut o diff with refle x MPV fL 9.4 12.3 10.7 FINAL Mary Palanisa my Whole Blood [facility].[address] [facility] e [address] [place] [address] CLIA#45D [id number] 04/26 CBC w/aut o diff with refle x RDW % 10.5 14.5 15.9 High FINAL Mary Palanisa my Whole Blood [facility].[address] [facility] e [address] [place] [address] CLIA#45D [id number] 04/26 CBC w/aut o diff with refle x Jordy % % 40.0 77.0 56.0 FINAL Mary Palanisa my Whole Blood [facility].[address] [facility] e [address] [place] [address] CLIA#45D [id number] 04/26 CBC w/aut o diff with refle x Jordy # (ANC) 10^3/u L 1.5 6.5 3.57 FINAL Mary Palanisa my Whole Blood [facility].[address] [facility] e [address] [place] [address] CLIA#45D [id number] 04/26 CBC w/aut o diff with refle x IG % % 0.0 0.5 0.3 FINAL Mary Palanisa my Whole Blood [facility].[address] [facility] it e [address] [place] [address] CLIA#45D [id number] 04/26 CBC w/aut o diff with refle x IG # 10^3/u L 0.0 0.03 0.02 FINAL Mary Palanisa my Whole Blood [facility].[address] [facility] it e [address] [place] [address] CLIA#45D [id number] 04/26 CBC w/aut o diff with refle x LY % % 15.0 41.0 19.6 FINAL Mary Palanisa my Whole Blood [facility].[address] [facility] it e [address] [place] [address] CLIA#45D [id number] 04/26 CBC w/aut o diff with refle x LY # 10^3/u L 1.2 3.4 1.25 FINAL Mary Palanisa my Whole Blood [facility].[address] [facility] it e [address] [place] [address] CLIA#45D [id number] 04/26 CBC w/aut o diff with refle x MO % % 3.0 11.0 9.7 FINAL Mary Palanisa my Whole Blood [facility].[address] [facility] it e [address] [place] [address] CLIA#45D [id number] 04/26 CBC w/aut o diff with refle x MO # 10^3/u L 0.0 1.0 0.62 FINAL Mary Palanisa my Whole Blood [facility].[address] [facility] it e [address] [place] [address] CLIA#45D [id number] 04/26 CBC w/aut o diff with refle x EO % % 0.0 3.0 13.0 High FINAL Mary Palanisa my Whole Blood [facility].[address] [facility] it e [address] [place] [address] CLIA#45D [id number] 04/26 CBC w/aut o diff with refle x EO # 10^3/u L 0.0 0.3 0.83 High FINAL Mary Palanisa my Whole Blood [facility].[address] [facility] e [address] [place] [address] CLIA#45D [id number] 04/26 CBC w/aut o diff with refle x BA % % 0.0 1.0 1.4 High FINAL Mary Palanisa my Whole Blood [facility].[address] [facility] e [address] [place] [address] CLIA#45D [id number] 04/26 CBC w/aut o diff with refle x BA # 10^3/u L 0.0 0.2 0.09 FINAL Mary Palanisa my Whole Blood [facility].[address] [facility] e [address] [place] [address] CLIA#45D [id number] 04/26 CBC w/aut o diff with refle x NRBC, % % 0.0 0.2 0.0 FINAL Mary Palanisa my Whole Blood [facility].[address] [facility] e [address] [place] [address] CLIA#45D [id number] 04/26 CBC w/aut o diff with refle x NRBC, absol jose, x 10^3/ uL 10^3/u L 0.0 0.01 0.00 FINAL Mary Palanisa my Whole Blood [facility].[address] [facility] e [address] [place] [address] CLIA#45D [id number] 04/26 CMP Sodiu m mmol/L 136.0 145.0 140 FINAL Mary Palanisa my Plasma [facility] [address] [place] [address] CLIA#45D [id number] 04/26 CMP Potas sium mmol/L 3.5 5.1 4.9 FINAL Mary Palanisa my Plasma [facility].[address] [facility] e [address] [place] [address] CLIA#45D [id number] 04/26 CMP Chlor loly mmol/L 97.0 107.0 104 FINAL Mary Palanisa my Plasma [facility].52 [address] [facility] [address] [place] [address] CLIA#45D [id number] 04/26 CMP CO2 mmol/L 21.0 32.0 26.0 FINAL Mary Palanisa my Plasma [facility].52 [address] [facility] [address] [place] [address] CLIA#45D [id number] 04/26 CMP Gluco se mg/dL 74.0 106.0 120 High FINAL Amry Palanisa my Plasma [facility].[address] [facility] [address] [place] [address] CLIA#45D [id number] 04/26 CMP BUN mg/dL 7.0 18.0 37 High FINAL Mary Palanisa my Plasma [facility].[address] [facility] [address] [place] [address] CLIA#45D [id number] 04/26 CMP Creat inine , mg/dL mg/dL 0.55 1.3 1.42 High FINAL Mary Palanisa my Plasma [facility].52 [address] [facility] [address] [place] [address] CLIA#45D [id number] 04/26 CMP GFR estim ate mil/mi n/1.73 m2 38 Low Result based on the eGFR 2020 calculati on.60-89 mL/min/1. 73m^2 without kidney damage may be normal.60 -89 mL/min/1. 73m^2 for 3 months or more, along with kidney damage, may indicate early kidney disease.C alculatio n modified to the 2020 formula effective 01/16/23. FINAL Mary Palanisa my Plasma [facility].52 [address] [facility] [address] [place] [address] CLIA#45D [id number] 04/26 CMP BUN/C reati nine ratio 6.0 25.0 26.1 High FINAL Mary Palanisa my Plasma [facility].[address] [facility] [address] [place] [address] CLIA#45D [id number] 04/26 CMP Album in g/dL 3.4 5.0 3.2 Low FINAL Mary Palanisa my Plasma [facility].[address] [facility] [address] [place] [address] CLIA#45D [id number] 04/26 CMP Calci um mg/dL 8.5 10.1 9.1 FINAL Mary Palanisa my Plasma [facility].52 [address] [facility] [address] [place] [address] CLIA#45D [id number] 04/26 CMP Total prote in g/dL 6.4 8.2 7.8 FINAL Mary Palanisa my Plasma [facility].[address] [facility] [address] [place] [address] CLIA#45D [id number] 04/26 CMP Globu ashley g/dL 2.2 4.2 4.6 High FINAL Mary Palanisa my Plasma [facility].[address] [facility] [address] [place] [address] CLIA#45D [id number] 04/26 CMP A/G ratio 0.8 2.0 0.7 Low FINAL Mary Palanisa my Plasma [facility].[address] [facility] [address] [place] [address] CLIA#45D [id number] 04/26 CMP Bilir ubin, total mg/dL 0.2 1.0 0.5 FINAL Mary Palanisa my Plasma [facility].[address] [place] [address] CLIA#45D [id number] 04/26 CMP Alkal ine phosp hatas e U/L 46.0 116.0 93 FINAL Mary Palanisa my Plasma [facility].[address] [facility] e [address] [place] [address] CLIA#45D [id number] 04/26 CMP AST/S GOT U/L 15.0 37.0 17 FINAL Mary Palanisa my Plasma [facility].[address] [facility] e [address] [place] [address] CLIA#45D [id number] 04/26 CMP ALT/S GPT U/L 14.0 59.0 26 FINAL Mary Palanisa my Plasma [facility].[address] [facility] e [address] [place] [address] CLIA#45D [id number] 04/26 TIBC and perce nt sat w/ iron panel Iron ug/dL 65.0 175.0 30.0 Low FINAL Mary Palanisa my Serum [facility].[address] [facility] e [address] [place] [address] CLIA#45D [id number] 04/26 TIBC and perce nt sat w/ iron panel TIBC ug/dL 250.0 450.0 283.0 FINAL Mary Palanisa my Serum [facility].[address] [facility] e [address] [place] [address] CLIA#45D [id number] 04/26 TIBC and perce nt sat w/ iron panel Iron, % satur ation % 15.0 50.0 11 Low FINAL Mary Palanisa my Serum [facility].[address] [facility] e [address] [place] [address] CLIA#45D [id number] 04/26 Juliet tin panel Juliet tin ng/mL 8.0 252.0 266 High FINAL Mary Palanisa my Serum [facility].[address] [facility] e [address] [place] [address] CLIA#45D [id number] 11/07 [place] /rodriguez da with K/L ratio , free, serum (mg/d L) [place] light chain , free mg/L 3.3 19.4 73.5 High FINAL Luis [facility].[address] [place] [address] [address] 12[place] [address] 11/07 [place] /rodriguez da with K/L ratio , free, serum (mg/d L) [place] a light chain , free mg/L 5.7 26.3 35.8 High FINAL Luis [facility].[address] [place] [address] [place] 12[place] [address] 11/07 [place] /rodriguez da with K/L ratio , free, [...] . FINAL Luis Tucker [facility] [place] [address] [place] 12[place] [address] 11/07 SPEP with immun ofixa tion Total prote in g/dL 6.1 8.1 6.4 FINAL Luis [facility].[address] [place] [address] [place] 12[place] [address] 11/07 SPEP with immun ofixa tion NOHEMI inter preta tion Results Below Normal pattern. No monoclona l proteins detected. FINAL Luis Tucker [facility] [place] [address] [address] 12[place] [address] 11/07 SPEP with immun ofixa tion Album in, SPE g/dL 3.8 4.8 3.4 Low FINAL Luis [facility].[address] [place] [address] [place] 12[place] [address] 11/07 SPEP with immun ofixa tion Alpha -1 globu ashley g/dL 0.2 0.3 0.3 FINAL [facility].2 [address] [address] [place] 12[place] [address] 11/07 SPEP with immun ofixa tion Alpha -2 globu ashley g/dL 0.5 0.9 0.7 FINAL [facility].2 [address] [address] [place] 12[place] [address] 11/07 SPEP with immun ofixa tion Beta- 1 g/dL 0.4 0.6 0.4 FINAL [facility].2 [address] [address] [place] 12[place] [address] 11/07 SPEP with immun ofixa tion Beta- 2 g/dL 0.2 0.5 0.4 FINAL [facility].2 [address] [address] [place] 12[place] [address] 11/07 SPEP with immun ofixa tion Gamma globu ashley g/dL 0.8 1.7 1.1 FINAL [facility].2 [address] [address] [place] 12[place] [address] 11/07 SPEP with immun ofixa tion SPE inter preta tion Results Below Abnormal appearing gamma globulin peak, possibly monoclona l. If indicated ,recommen d immunotyp ing (Test Code: IMTYPB) for further evaluatio n. If the SPEPwas ordered with reflex, immunotyp ing will be resulted upon completio n. FINAL [facility].2 [address] [address] [place] [address] [address] 11/07 Juliet tin panel Juliet tin ng/mL 8.0 252.0 228 FINAL [facility].[address] [facility] [address] [place] [address] CLIA#45D [id number] 11/07 TIBC and perce nt sat w/ iron panel Iron ug/dL 50.0 170.0 60.0 FINAL [facility].[address] [facility] [address] [place] [address] CLIA#45D [id number] 11/07 TIBC and perce nt sat w/ iron panel TIBC ug/dL 250.0 450.0 311.0 FINAL [facility].52 [address] [facility] [address] [place] [address] CLIA#45D [id number] 11/07 TIBC and perce nt sat w/ iron panel Iron, % satur ation % 15.0 50.0 19 FINAL [facility].52 [address] [facility] [address] [place] [address] CLIA#45D [id number] 11/07 CMP Chlor loly mmol/L 97.0 107.0 106 FINAL [facility].52 [address] [facility] [address] [place] [address] CLIA#45D [id number] 11/07 CMP CO2 mmol/L 21.0 32.0 28.0 FINAL [facility].52 [address] [facility] [address] [place] [address] CLIA#45D [id number] 11/07 CMP Gluco se mg/dL 74.0 106.0 74 FINAL [facility].52 [address] [facility] [address] [place] [address] CLIA#45D [id number] 11/07 CMP BUN mg/dL 7.0 18.0 35 High FINAL [facility].52 [address] [facility] [address] [place] [address] CLIA#45D [id number] 11/07 CMP Creat inine , mg/dL mg/dL 0.55 1.3 1.41 High FINAL [facility].52 [address] [facility] [address] [place] [address] CLIA#45D [id number] 11/07 CMP GFR estim ate mil/mi n/1.73 m2 38 Low Result based on the eGFR 2020 calculati on.60-89 mL/min/1. 73m^2 without kidney damage may be normal.60 -89 mL/min/1. 73m^2 for 3 months or more, along with kidney damage, may indicate early kidney disease.C alculatio n modified to the 2020 formula effective 01/16/23. FINAL [facility].[address] [facility] e [address] [place] [address] CLIA#45D [id number] 11/07 CMP BUN/C reati nine ratio 6.0 25.0 24.8 FINAL [facility] [address] [place] [address] CLIA#45D [id number] 11/07 CMP Calci um mg/dL 8.5 10.1 9.7 FINAL [facility].[address] [facility] e [address] [place] [address] CLIA#45D [id number] 11/07 CMP Album in g/dL 3.4 5.0 3.1 Low FINAL [facility].[address] [facility] e [address] [place] [address] CLIA#45D [id number] 11/07 CMP Total prote in g/dL 6.4 8.2 7.3 FINAL [facility].[address] [facility] e [address] [place] [address] CLIA#45D [id number] 11/07 CMP Globu ashley g/dL 2.2 4.2 4.2 FINAL [facility].[address] [facility] e [address] [place] [address] CLIA#45D [id number] 11/07 CMP A/G ratio 0.8 2.0 0.7 Low FINAL [facility].[address] [facility] e [address] [place] [address] CLIA#45D [id number] 11/07 CMP Bilir ubin, total mg/dL 0.2 1.0 0.6 FINAL [facility] Plasma [facility] [address] [place] [address] CLIA#45D [id number] 11/07 CMP Alkal ine phosp hatas e U/L 46.0 116.0 100 FINAL [facility] Plasma [facility] [address] [place] [address] CLIA#45D [id number] 11/07 CMP AST/S GOT U/L 15.0 37.0 26 FINAL [facility] Plasma [facility] [address] [place] [address] CLIA#45D [id number] 11/07 CMP ALT/S GPT U/L 14.0 59.0 27 FINAL [facility] [address] [place] [address] CLIA#45D [id number] 11/07 CMP Sodiu m mmol/L 136.0 145.0 143 FINAL [facility].[address] [facility] [address] [place] [address] CLIA#45D [id number] 11/07 CMP Potas sium mmol/L 3.5 5.1 4.3 FINAL [facility].[address] [facility] [address] [place] [address] CLIA#45D [id number] 11/07 CBC w/aut o diff with refle x WBC 10^3/u L 4.8 10.8 4.6 Low FINAL [facility] Whole Blood [facility].[address] [facility] e [address] [place] [address] CLIA#45D [id number] 11/07 CBC w/aut o diff with refle x RBC 10^6/u L 4.2 5.4 4.23 FINAL [facility] Whole Blood [facility].[address] [facility] [address] [place] [address] CLIA#45D [id number] 11/07 CBC w/aut o diff with refle x HGB g/dL 12.0 16.0 12.4 FINAL Luis Tucker Whole Blood [facility].[address] [facility] it e [address] [place] [address] CLIA#45D [id number] 11/07 CBC w/aut o diff with refle x HCT % 37.0 47.0 40.8 FINAL Luis Tucker Whole Blood [facility].[address] [facility] it e [address] [place] [address] CLIA#45D [id number] 11/07 CBC w/aut o diff with refle x MCV fL 81.0 99.0 96.5 FINAL Luis Tucker Whole Blood [facility].[address] [facility] e [address] [place] [address] CLIA#45D [id number] 11/07 CBC w/aut o diff with refle x MCH pg 27.0 31.0 29.3 FINAL Luis Tucker Whole Blood [facility].[address] [facility] e [address] [place] [address] CLIA#45D [id number] 11/07 CBC w/aut o diff with refle x MCHC g/dL 33.0 37.0 30.4 Low FINAL Luis Tucker Whole Blood [facility].[address] [facility] it e [address] [place] [address] CLIA#45D [id number] 11/07 CBC w/aut o diff with refle x PLT 10^3/u L 130.0 400.0 216 FINAL Luis Tucker Whole Blood [facility].[address] [facility] e [address] [place] [address] CLIA#45D [id number] 11/07 CBC w/aut o diff with refle x MPV fL 9.4 12.3 10.3 FINAL Luis Tucker Whole Blood [facility].[address] [facility] [address] [place] [address] CLIA#45D [id number] 11/07 CBC w/aut o diff with refle x RDW % 10.5 14.5 14.0 FINAL Luis Tucker Whole Blood [facility].[address] [place] [address] CLIA#45D [id number] 11/07 CBC w/aut o diff with refle x Jordy % % 40.0 77.0 59.7 FINAL Luis Tucker Whole Blood [facility].[address] [place] [address] CLIA#45D [id number] 11/07 CBC w/aut o diff with refle x Jordy # (ANC) 10^3/u L 1.5 6.5 2.73 FINAL Luis Tucker Whole Blood [facility].[address] [facility] e [address] [place] [address] CLIA#45D [id number] 11/07 CBC w/aut o diff with refle x IG % % 0.0 0.5 0.4 FINAL Luis Tucker Whole Blood [facility].[address] [facility] e [address] [place] [address] CLIA#45D [id number] 11/07 CBC w/aut o diff with refle x IG # 10^3/u L 0.0 0.03 0.02 FINAL Luis Tucker Whole Blood [facility].52 [address] [facility] [address] [place] [address] CLIA#45D [id number] 11/07 CBC w/aut o diff with refle x LY % % 15.0 41.0 19.0 FINAL Luis Tucker Whole Blood [facility].[address] [place] [address] CLIA#45D [id number] 11/07 CBC w/aut o diff with refle x LY # 10^3/u L 1.2 3.4 0.87 Low FINAL Luis Tucker Whole Blood [facility].[address] [place] [address] CLIA#45D [id number] 11/07 CBC w/aut o diff with refle x MO % % 3.0 11.0 9.8 FINAL Luis Brown Whole Blood [facility].[address] [facility] e [address] [place] [address] CLIA#45D [id number] 11/07 CBC w/aut o diff with refle x MO # 10^3/u L 0.0 1.0 0.45 FINAL Luis Brown Whole Blood [facility].[address] [facility] [address] [place] [address] CLIA#45D [id number] 11/07 CBC w/aut o diff with refle x EO % % 0.0 3.0 9.6 High FINAL Luis Brown Whole Blood [facility].[address] [facility] [address] [place] .[place] [address] CLIA#[id number] 11/07 CBC w/aut o diff with refle x EO # 10^3/u L 0.0 0.3 0.44 High FINAL Luis Brown Whole Blood [facility].[address] [facility] [address] [place] [address] CLIA#[id number] 11/07 CBC w/aut o diff with refle x BA % % 0.0 1.0 1.5 High FINAL Luis Brown Whole Blood [facility].[address] [facility] [address] [place] [address] CLIA#[id number] 11/07 CBC w/aut o diff with refle x BA # 10^3/u L 0.0 0.2 0.07 FINAL Luis Brown Whole Blood [facility].[address] [facility] [address] [place] [address] CLIA#[id number] 11/07 CBC w/aut o diff with refle x NRBC, % % 0.0 0.2 0.0 FINAL Luis Brown Whole Blood [facility].[address] [facility] [address] [place] [address] CLIA#[id number] 11/07 CBC w/aut o diff with refle x NRBC, absol jose, x 10^3/ uL 10^3/u L 0.0 0.01 0.00 FINAL Luis Tucker Whole Blood [facility].[address] [facility] [address] [place] [address] CLIA#[id number] Medications Date Name Route Dose Frequency Instructions [...] Section * [facility]On[facility] Follow Up - [address] [address] P:?? PATIENT:??JAMESON DOTSON :??1945 Date of Service:??04/26/2024 [...] insufficiency and proteinuria.?? 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 * Spironolactone Oral 25 mg tablet 1 TABLET(S) PO daily * Omeprazole Oral Delayed Release Tablet 20 mg tablet,delayed release (DR/EC) 1 TABLET(S), ENTERIC COATED PO daily * Paroxetine Oral 40 mg tablet 1 TABLET(S) PO daily * Aspirin Oral 81 mg 1 TABLET(S) PO daily * Farxiga (Dapagliflozin Oral) 10 mg tablet daily * Hwciinupfqp-Xnsoqssxu-Aljlxzag Inhaler 100 mcg-62.5 mcg-25 mcg/actuation 100-62.5-25 mcg [...] 3 adult children.?? 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
--- OUTSIDE RECORDS SUMMARY | 2025-01-28 18:35 | XMS_ITS ---
Author Name Interface, [id number] lity Address [place] [address] Organization [facility] Address [place] [address] Care Team Providers Care Dental Technologist Name Role Phone Matt José Unavailable Unavailable [...] LABORDER CBC w/ auto diff 07/07/2023 LABORDER [place]/lambda wit h K/L ratio, free, serum (mg/dL) [...] LABORDER SPEP with immuno fixation 04/26/2024 LABORDER [place]/lambda wit h K/L ratio, free, serum (mg/dL) 04/26/2024 LABORDER CBC w/auto diff with reflex 11/07/2024 LABORDER SPEP with immuno fixation 11/07/2024 LABORDER CBC w/auto diff with reflex 11/07/2024 LABORDER [place]/lambda wit h K/L ratio, free, serum (mg/dL) 11/07/2024 LABORDER CMP 11/07/2024 LABORDER Iron, TIBC, Ferr itin panel 05/16/2025 LABORDER CBC w/auto diff with reflex 05/16/2025 LABORDER SPEP with immuno fixation 05/16/2025 LABORDER CMP 05/16/2025 LABORDER [place]/lambda wit h K/L ratio, free, serum (mg/dL) [...] FINAL Mary Palanisa my Serum [facility] [place] [address] 12.[place] [address] 07/07 SPEP with immun ofixa tion Alpha -1 globu ashley g/dL 0.2 0.5 0.5 FINAL Mary Palanisa my [facility] [place] [address] 12.[place] [address] 07/07 SPEP with immun ofixa tion Alpha -2 globu ashley g/dL 0.4 1.0 0.8 FINAL Mary Palanisa my [facility] [place] [address] [address] 12[place] [address] 07/07 SPEP with immun ofixa tion Beta globu ashley g/dL 0.5 1.1 0.7 FINAL Mary Palanisa my [facility]2 [address] [address] [address] 12[place] [address] 07/07 SPEP with immun ofixa tion Gamma globu ashley g/dL 0.7 1.5 0.9 FINAL Mary Johnanisa my Serum [facility].2 [address] [address] [address] 12[place] [address] 07/07 SPEP with immun ofixa tion Parap rotei n band, g/dL g/dL None FINAL Mary Palanisa my [facility]2 [address] [address] [address] 12[place] [address] 07/07 SPEP with immun ofixa tion Total prote in elect ropho resis g/dL 5.7 8.2 6.1 FINAL Mray Palanisa my Serum [facility]2 [address] [address] [address] 12[place] [address] 07/07 SPEP with immun ofixa tion SPE inter preta tion Results Below Normal serum total protein with normal electroph oretic pattern. FINAL Mary Palanisa my [facility]2 [address] [address] [address] 12[place] [address] 07/07 SPEP with immun ofixa tion Immun ofixa tion, serum , inter preta tion Results Below No monoclona l peaks detected. FINAL Mary Palanisa my Serum [facility]2 [address] [address] [address] 12[place] [address] 07/07 CMP Sodiu m mmol/L 136.0 145.0 137 FINAL Mary Palanisa my Plasma [facility] . [address] [place] [address] EGEN. [id number]. [place] [address] CLIA#45D [id number] 07/07 CMP Potas sium mmol/L 3.5 5.1 4.1 FINAL Mary Palanisa my Plasma [facility] . [address] [place] [address] EGEN. [id number]. [place] [address] CLIA#45D [id number] 07/07 CMP Chlor loly mmol/L 97.0 107.0 101 FINAL Mary Palanisa my Plasma [facility] . [address] [place] [address]. [id number]. [place] [address] CLIA#45D [id number] 07/07 CMP CO2 mmol/L 21.0 32.0 32 FINAL Mary Palanisa my Plasma [facility] . [address] [place] [address]. [id number]. [place] [address] CLIA#45D [id number] 07/07 CMP Gluco se mg/dL 74.0 106.0 115 High FINAL Mary Palanisa my Plasma [facility] . [address] [place] [address]. [id number]. [place] [address] CLIA#45D [id number] 07/07 CMP BUN mg/dL 7.0 18.0 21 High FINAL Mary Palanisa my Plasma [facility] . [address] [place] [address]. [id number]. [place] [address] CLIA#45D [id number] 07/07 CMP Creat inine , mg/dL mg/dL 0.55 1.3 1.50 High FINAL Mary Palanisa my Plasma [facility] . [address] [place] [address]. [id number]. [place] [address] CLIA#45D [id number] 07/07 CMP GFR estim ate ml/min /1.73m 2 36 Low Result based on the eGFR 2020 calculati on.60-89 mL/min/1. 73m^2 without kidney damage may be normal.60 -89 mL/min/1. 73m^2 for 3 months or more, along with kidney damage, may indicate early kidney disease.C alculatio n modified to the 2020 formula effective 01/16/23. FINAL Mary Palanisa my Plasma [facility] . [address] [place] [address]. [id number]. [place] [address] CLIA#45D [id number] 07/07 CMP BUN/C reati nine ratio Ratio 6.0 25.0 14.0 FINAL Mary Palanisa my Plasma [facility] . [address] [place], [place] [address]. [id number]. [place] [address] CLIA#45D [id number] 07/07 CMP Calci um mg/dL 8.5 10.1 9.6 FINAL Mary Palanisa my Plasma [facility] . [address] [place] [address]. [id number]. [place] [address] CLIA#45D [id number] 07/07 CMP Total prote in g/dL 6.4 8.2 6.5 FINAL Mary Palanisa my Plasma [facility] . [address] [place] [address]. [id number]. [place] [address] CLIA#45D [id number] 07/07 CMP Album in g/dL 3.4 5.0 2.9 Low FINAL Mary Palanisa my Plasma [facility] . [address] [place] [address]. [id number]. [place] [address] CLIA#45D [id number] 07/07 CMP A/G ratio Ratio 0.8 2.0 0.8 FINAL Mary Palanisa my Plasma [facility] . [address] [place] [address]. [id number]. [place] [address] CLIA#45D [id number] 07/07 CMP Bilir ubin, total mg/dL 0.2 1.0 0.5 FINAL Mary Palanisa my Plasma [facility] . [address] [place], [place] [address]. [id number]. [place] [address] CLIA#45D [id number] 07/07 CMP Alkal ine phosp hatas e U/L 46.0 116.0 83 FINAL Mary Palanisa my Plasma [facility] . [address] [place] [address] [employer] [facility]. [id number]. [place] [id number] CLIA#45D [id number] 07/07 CMP AST/S GOT U/L 15.0 37.0 22 FINAL Mary Palanisa my Plasma [facility] . [address] [place] [address] [employer] [facility]. [id number]. [address] [place] [id number] CLIA#45D [id number] 07/07 CMP ALT/S GPT U/L 14.0 59.0 24 FINAL Mary Palanisa my Plasma [facility] . [address] [place] [address]. [id number]. [place] [address] CLIA#45D [id number] 07/07 Juliet tin panel Juliet tin ng/mL 8.0 252.0 738 High FINAL Mary Palanisa my Serum [facility] . [address] [place] [address]. [id number]. [place] [address] CLIA#45D [id number] 07/07 TIBC and perce nt sat w/ iron panel Iron ug/dL 50.0 170.0 75.00 FINAL Mary Palanisa my Serum [facility] . [address] [place] [address]. [id number]. [place] [address] CLIA#45D [id number] 07/07 TIBC and perce nt sat w/ iron panel TIBC ug/dL 250.0 450.0 272.00 FINAL Mary Palanisa my Serum [facility] . [address] [place] [address]. [id number]. [place] [address] CLIA#45D [id number] 07/07 TIBC and perce nt sat w/ iron panel Iron, % satur ation % 20.0 55.0 27.6 FINAL Mary Palanisa my Serum [facility] . [address] [place] [address]. [id number]. [place] [address] CLIA#45D [id number] 07/07 CBC w/aut o diff with refle x WBC 10^3/u l 4.8 10.8 5.5 FINAL Mary Palanisa my Whole Blood [facility] . [address] [place] [address]. [id number]. [place] [address] CLIA#45D [id number] 07/07 CBC w/aut o diff with refle x RBC 10^6/u l 4.2 5.4 3.76 Low FINAL Mary Palanisa my Whole Blood [facility] . [address] [place] [address]. [id number]. [place] [address] CLIA#45D [id number] 07/07 CBC w/aut o diff with refle x HGB g/dl 12.0 16.0 11.3 Low FINAL Mary Palanisa my Whole Blood [facility] . [facility] [id number]. [place] [address] CLIA#45D [id number] 07/07 CBC w/aut o diff with refle x HCT % 37.0 47.0 35.5 Low FINAL Mary Palanisa my Whole Blood [facility] . [address] [place] [address]. [id number]. [place] [address] CLIA#45D [id number] 07/07 CBC w/aut o diff with refle x MCV fl 81.0 99.0 94.4 FINAL Mary Palanisa my Whole Blood [facility] . [address] [place] [address]. [id number]. [place] [address] CLIA#45D [id number] 07/07 CBC w/aut o diff with refle x MCH pg 27.0 31.0 30.1 FINAL Mary Palanisa my Whole Blood [facility] . [address] [place] [address]. [id number]. [place] [address] CLIA#45D [id number] 07/07 CBC w/aut o diff with refle x MCHC g/dl 33.0 37.0 31.8 Low FINAL Mary Palanisa my Whole Blood [facility] . [address] [place] [address]. [id number]. [place] [address] CLIA#45D [id number] 07/07 CBC w/aut o diff with refle x RDW % 10.5 14.5 13.2 FINAL Mary Palanisa my Whole Blood [facility] . [address] [place] [address]. [id number]. [place] [address] CLIA#45D [id number] 07/07 CBC w/aut o diff with refle x PLT 10^3/u l 130.0 400.0 277 FINAL Mary Palanisa my Whole Blood [facility] . [address] [place] [address] [employer] [facility]. [id number]. [place] [address] CLIA#45D [id number] 07/07 CBC w/aut o diff with refle x MPV fl 9.4 12.3 10.3 FINAL Mary Palanisa my Whole Blood [facility] . [address] [place] [address]. [id number]. [place] [address] CLIA#45D [id number] 07/07 CBC w/aut o diff with refle x Jordy % % 40.0 77.0 44.9 FINAL Mary Palanisa my Whole Blood [facility] . [address] [place] [address]. [id number]. [place] [address] CLIA#45D [id number] 07/07 CBC w/aut o diff with refle x Jordy # (ANC) 10^3/u l 1.5 6.5 2.5 FINAL Mary Palanisa my Whole Blood [facility] . [address] [place] [address]. [id number]. [place] [address] CLIA#45D [id number] 07/07 CBC w/aut o diff with refle x LY % % 15.0 41.0 29.0 FINAL Mary Palanisa my Whole Blood [facility] . [address] [place] [address]. [id number]. [place] [address] CLIA#45D [id number] 07/07 CBC w/aut o diff with refle x LY # 10^3/u l 1.2 3.4 1.6 FINAL Mary Palanisa my Whole Blood [facility] . [address] [place] [address]. [id number]. [place] [address] CLIA#45D [id number] 07/07 CBC w/aut o diff with refle x MO % % 3.0 11.0 11.6 High FINAL Mary Palanisa my Whole Blood [facility] . [address] [place] [address]. [id number]. [place] [address] CLIA#45D [id number] 07/07 CBC w/aut o diff with refle x MO # 10^3/u l 0.0 1.0 0.6 FINAL Mary Palanisa my Whole Blood [facility] . [address] [place] [address]. [id number]. [place] [address] CLIA#45D [id number] 07/07 CBC w/aut o diff with refle x EO % % 0.0 3.0 12.5 High FINAL Mary Palanisa my Whole Blood [facility] . [address] [place] [address]. [id number]. [address] [place] [id number] CLIA#45D [id number] 07/07 CBC w/aut o diff with refle x EO # 10^3/u L 0.0 0.3 0.7 High FINAL Mary Palanisa my Whole Blood [facility] . [address] [place] [address]. [id number]. [place] [address] CLIA#45D [id number] 07/07 CBC w/aut o diff with refle x BA % % 0.0 1.0 0.9 FINAL Mary Palanisa my Whole Blood [facility] . [address] [place] [address]. [id number]. [place] [address] CLIA#45D [id number] 07/07 CBC w/aut o diff with refle x BA # 10^3/u L 0.0 0.2 0.1 FINAL Mary Palanisa my Whole Blood [facility] . [address] [place] [address]. [id number]. [place] [id number] CLIA#45D [id number] 07/07 CBC w/aut o diff with refle x IG % % 0.0 0.5 1.10 High FINAL Mary Palanisa my Whole Blood [facility] . [address] [place] [address]. [id number]. [place] [address] CLIA#45D [id number] 07/07 CBC w/aut o diff with refle x IG # 10^3/u L 0.0 0.03 0.06 High FINAL Mary Palanisa my Whole Blood [facility] . [address] [place] [address]. [id number]. [place] [address] CLIA#45D [id number] 07/07 CBC w/aut o diff with refle x NRBC, % % 0.0 0.2 0.0 FINAL Mary Palanisa my Whole Blood [facility] . [address] [place] [address]. [id number]. [facility] [address] CLIA#45D [id number] 07/07 CBC w/aut o diff with refle x NRBC, absol jose, x 10^3/ uL 10^3/u L 0.0 0.012 0.000 FINAL Mary Palanisa my Whole Blood [facility] [place] . [address] [place]. [id number]. [address] [place] [id number] CLIA#45D [id number] 07/07 [place] /rodriguez da with K/L ratio , free, serum (mg/d L) [place] [employer] , free mg/L 3.3 19.4 45.9 High FINAL Mary Palanisa my Serum [facility].[address] [place] [address] [address] 12[place] [address] 07/07 [place] /rodriguez da with K/L ratio , free, serum (mg/d L) [place] [employer] , free mg/L 5.7 26.3 26.5 High FINAL Mary Palanisa my Serum [facility].[address] [place] [address] [place] 12[place] [address] 07/07 [place] /rodriguez da with K/L ratio , free, [...] FINAL Mary Palanisa my Serum [facility].[address] [place] [address] [address] 12[place] [address] 10/27 CMP Sodiu m mmol/L 136.0 145.0 140 FINAL Mary Palanisa my Plasma [facility] . [address] [place] [address] [employer] [facility]. [id number]. [address] [place] [id number] CLIA#45D [id number] 10/27 CMP Potas sium mmol/L 3.5 5.1 4.7 FINAL Mary Palanisa my Plasma [facility] . [address] [place], [place] [address]. [id number]. [address] [place] [id number] CLIA#45D [id number] 10/27 CMP Chlor loly mmol/L 97.0 107.0 103 FINAL Mary Palanisa my Plasma [facility] . [address] [place] [address] [employer] [facility]. [id number]. [address] [place] [id number] CLIA#45D [id number] 10/27 CMP CO2 mmol/L 21.0 32.0 25 FINAL Mary Palanisa my Plasma [facility] . [address] [place], [place] [address]. [id number]. [address] [place] [id number] CLIA#45D [id number] 10/27 CMP Gluco se mg/dL 74.0 106.0 88 FINAL Mary Palanisa my Plasma [facility] . [address] [place] [address] [employer] [facility]. [id number]. [facility] [address] CLIA#45D [id number] 10/27 CMP BUN mg/dL 7.0 18.0 26 High FINAL Mary Palanisa my Plasma [facility] . [address] [place], [place] [address]. [id number]. [address] [place] [id number] CLIA#45D [id number] 10/27 CMP Creat inine , mg/dL mg/dL 0.55 1.3 1.08 FINAL Mary Palanisa my Plasma [facility] . [address] [place] [address] [employer] [facility]. [id number]. [place] [id number] CLIA#45D [id number] 10/27 CMP GFR estim ate ml/min /1.73m 2 53 Low Result based on the eGFR 2020 calculati on.60-89 mL/min/1. 73m^2 without kidney damage may be normal.60 -89 mL/min/1. 73m^2 for 3 months or more, along with kidney damage, may indicate early kidney disease.C alculatio n modified to the 2020 formula effective 01/16/23. FINAL Mary Palanisa my Plasma [facility] . [address] [place] [address]. [id number]. [place] [address] CLIA#45D [id number] 10/27 CMP BUN/C reati nine ratio Ratio 6.0 25.0 24.1 FINAL Mary Palanisa my Plasma [facility] . [address] [place] [address]. [id number]. [place] [address] CLIA#45D [id number] 10/27 CMP Calci um mg/dL 8.5 10.1 8.8 FINAL Mary Palanisa my Plasma [facility] . [address] [place] [address]. [id number]. [place] [address] CLIA#45D [id number] 10/27 CMP Total prote in g/dL 6.4 8.2 6.8 FINAL Mary Palanisa my Plasma [facility] . [address] [place] [address]. [id number]. [place] [address] CLIA#45D [id number] 10/27 CMP Album in g/dL 3.4 5.0 2.7 Low FINAL Mary Palanisa my Plasma [facility] . [address] [place] [address]. [id number]. [place] [address] CLIA#45D [id number] 10/27 CMP A/G ratio Ratio 0.8 2.0 0.7 Low FINAL Mary Palanisa my Plasma [facility] . [address] [place] [address]. [id number]. [place] [address] CLIA#45D [id number] 10/27 CMP Bilir ubin, total mg/dL 0.2 1.0 0.3 FINAL Mary Palanisa my Plasma [facility] . [address] [place] [address] [facility]. [id number]. [place] [address] CLIA#45D [id number] 10/27 CMP Alkal ine phosp hatas e U/L 46.0 116.0 89 FINAL Mary Palanisa my Plasma [facility] . [address]. [id number]. [place] [address] CLIA#45D [id number] 10/27 CMP AST/S GOT U/L 15.0 37.0 18 FINAL Mary Palanisa my Plasma [facility] . [address] [place] [address]. [id number]. [place] [address] CLIA#45D [id number] 10/27 CMP ALT/S GPT U/L 14.0 59.0 19 FINAL Mary Palanisa my Plasma [facility] . [address] [place] [address]. [id number]. [place] [address] CLIA#45D [id number] 10/27 CBC w/aut o diff with refle x WBC 10^3/u l 4.8 10.8 9.7 FINAL Mary Palanisa my Whole Blood [facility] . [address] [place] [address]. [id number]. [place] [address] CLIA#45D [id number] 10/27 CBC w/aut o diff with refle x RBC 10^6/u l 4.2 5.4 3.48 Low FINAL Mary Palanisa my Whole Blood [facility] . [address] [place] [address]. [id number]. [place] [address] CLIA#45D [id number] 10/27 CBC w/aut o diff with refle x HGB g/dl 12.0 16.0 10.0 Low FINAL Mary Palanisa my Whole Blood [facility] . [address] [place] [address]. [id number]. [place] [address] CLIA#45D [id number] 10/27 CBC w/aut o diff with refle x HCT % 37.0 47.0 32.4 Low FINAL Mary Palanisa my Whole Blood [facility] . [address] [place] [address]. [id number]. [place] [address] CLIA#45D [id number] 10/27 CBC w/aut o diff with refle x MCV fl 81.0 99.0 93.1 FINAL Mary Palanisa my Whole Blood [facility] . [address] [place], [place] [address]. [id number]. [place] [address] CLIA#45D [id number] 10/27 CBC w/aut o diff with refle x MCH pg 27.0 31.0 28.7 FINAL Mary Palanisa my Whole Blood [facility] . [address] [place] [address]. [id number]. [place] [address] CLIA#45D [id number] 10/27 CBC w/aut o diff with refle x MCHC g/dl 33.0 37.0 30.9 Low FINAL Mary Palanisa my Whole Blood [facility] . [address] [place] [address]. [id number]. [place] [address] CLIA#45D [id number] 10/27 CBC w/aut o diff with refle x RDW % 10.5 14.5 15.3 High FINAL Mary Palanisa my Whole Blood [facility] . [address] [place] [address]. [id number]. [place] [address] CLIA#45D [id number] 10/27 CBC w/aut o diff with refle x PLT 10^3/u l 130.0 400.0 446 High FINAL Mary Palanisa my Whole Blood [facility] . [address] [place] [address]. [id number]. [place] [address] CLIA#45D [id number] 10/27 CBC w/aut o diff with refle x MPV fl 9.4 12.3 10.2 FINAL Mary Palanisa my Whole Blood [facility] . [address] [place] [address]. [id number]. [place] [address] CLIA#45D [id number] 10/27 CBC w/aut o diff with refle x Jordy % % 40.0 77.0 64.4 FINAL Mary Palanisa my Whole Blood [facility] . [address] [place], [place] [address]. [id number]. [place] [address] CLIA#45D [id number] 10/27 CBC w/aut o diff with refle x Jordy # (ANC) 10^3/u l 1.5 6.5 6.2 FINAL Mary Palanisa my Whole Blood [facility] . [address] [place] [address]. [id number]. [place] [address] CLIA#45D [id number] 10/27 CBC w/aut o diff with refle x LY % % 15.0 41.0 14.6 Low FINAL Mary Palanisa my Whole Blood [facility] . [address] [place] [address]. [id number]. [place] [address] CLIA#45D [id number] 10/27 CBC w/aut o diff with refle x LY # 10^3/u l 1.2 3.4 1.4 FINAL Mary Palanisa my Whole Blood [facility] . [address] [place] [address]. [id number]. [place] [address] CLIA#45D [id number] 10/27 CBC w/aut o diff with refle x MO % % 3.0 11.0 10.7 FINAL Mary Palanisa my Whole Blood [facility] . [address] [place] [address]. [id number]. [place] [address] CLIA#45D [id number] 10/27 CBC w/aut o diff with refle x MO # 10^3/u l 0.0 1.0 1.0 FINAL Mary Palanisa my Whole Blood [facility] . [address] [place] [address]. [id number]. [place] [address] CLIA#45D [id number] 10/27 CBC w/aut o diff with refle x EO % % 0.0 3.0 7.1 High FINAL Mary Palanisa my Whole Blood [facility] . [address] [place] [address]. [id number]. [place] [address] CLIA#45D [id number] 10/27 CBC w/aut o diff with refle x EO # 10^3/u L 0.0 0.3 0.7 High FINAL Mary Palanisa my Whole Blood [facility] . [address] [place] [address]. [id number]. [place] [address] CLIA#45D [id number] 10/27 CBC w/aut o diff with refle x BA % % 0.0 1.0 1.1 High FINAL Mary Palanisa my Whole Blood [facility] . [address] [place], [place] [address]. [id number]. [place] [address] CLIA#45D [id number] 10/27 CBC w/aut o diff with refle x BA # 10^3/u L 0.0 0.2 0.1 FINAL Mary Palanisa my Whole Blood [facility] . [address] [place] [address]. [id number]. [place] [address] CLIA#45D [id number] 10/27 CBC w/aut o diff with refle x IG % % 0.0 0.5 2.10 High FINAL Mary Palanisa my Whole Blood [facility] . [address] [place] [address]. [id number]. [place] [address] CLIA#45D [id number] 10/27 CBC w/aut o diff with refle x IG # 10^3/u L 0.0 0.03 0.20 High FINAL Mary Palanisa my Whole Blood [facility] . [address] [place] [address]. [id number]. [place] [address] CLIA#45D [id number] 10/27 CBC w/aut o diff with refle x NRBC, % % 0.0 0.2 0.0 FINAL Mary Palanisa my Whole Blood [facility] . [address] [place] [address]. [id number]. [place] [address] CLIA#45D [id number] 10/27 CBC w/aut o diff with refle x NRBC, absol jose, x 10^3/ uL 10^3/u L 0.0 0.012 0.000 FINAL Mary Palanisa my Whole Blood [facility] . [address] [place], [place] [address]. [id number]. [place] [address] CLIA#45D [id number] 10/27 Juliet tin panel Juleit tin ng/mL 8.0 252.0 953 High FINAL Mary Palanisa my Serum [facility] . [address] [place] [address] [employer] [facility]. [id number]. [place] [address] CLIA#45D [id number] 10/27 TIBC and perce nt sat w/ iron panel Iron ug/dL 50.0 170.0 24.00 Low FINAL Mary Palanisa my Serum [facility] . [address] [place] [address]. [id number]. [place] [address] CLIA#45D [id number] 10/27 TIBC and perce nt sat w/ iron panel TIBC ug/dL 250.0 450.0 202.00 Low FINAL Mary Palanisa my Serum [facility] . [address] [place] [address]. [id number]. [place] [id number] CLIA#45D [id number] 10/27 TIBC and perce nt sat w/ iron panel Iron, % satur ation % 20.0 55.0 11.9 Low FINAL Mary Palanisa my Serum [facility] . [address] [place] [address]. [id number]. [place] [id number] CLIA#45D [id number] 04/26 SPEP with immun ofixa tion Total prote in g/dL 6.1 8.1 7.1 FINAL Mary Palanisa my Serum [facility] [place] [address] [address].[place] [address] 04/26 SPEP with immun ofixa tion NOHEMI inter preta tion Results Below Normal pattern. No monoclona l proteins detected. FINAL Mary Palanisa my Serum [facility] [place] [address] [address] 12.[place] [address] 04/26 SPEP with immun ofixa tion Album in, SPE g/dL 3.8 4.8 3.6 Low FINAL Mary Palanisa my Serum [facility] [place] [address] [address] 12.[place] [address] 04/26 SPEP with immun ofixa tion Alpha -1 globu ashley g/dL 0.2 0.3 0.3 FINAL Mary Palanisa my Serum [facility] [place] [address] [address] 12[place] [address] 04/26 SPEP with immun ofixa tion Alpha -2 globu ashley g/dL 0.5 0.9 0.8 FINAL Mary Palanisa my Serum [facility] [place] [address] [place] 12[place] [address] 04/26 SPEP with immun ofixa tion Beta- 1 g/dL 0.4 0.6 0.5 FINAL Mary Palanisa my Serum [facility]2 [address] [address] [address] 12[place] [address] 04/26 SPEP with immun ofixa tion Beta- 2 g/dL 0.2 0.5 0.4 FINAL Mary Palanisa my Serum [facility]2 [address] [address] [address] 12[place] [address] 04/26 SPEP with immun ofixa tion Gamma globu ashley g/dL 0.8 1.7 1.5 FINAL Mary Palanisa my Serum [facility] [address] [address] [address] 12[place] [address] 04/26 SPEP with immun ofixa tion SPE inter preta tion Results Below Abnormal appearing globulin peak, possibly monoclona l. If indicated , recommend immunotyp ing (Test Code: IMTYPB) for further evaluatio n. If the SPEP wasordere d with reflex, immunotyp ing will be resulted upon completio n. FINAL Mary Palanisa my Serum [facility] [address] [address] [place] [address] [address] 04/26 Juliet tin panel Juliet tin ng/mL 8.0 252.0 266 High FINAL Mary Palanisa my Serum [facility].[address] [facility] [address] [place] [address] CLIA#45D [id number] 04/26 TIBC and perce nt sat w/ iron panel Iron ug/dL 65.0 175.0 30.0 Low FINAL Mary Palanisa my Serum [facility].[address] [facility] [address] [place] [address] CLIA#45D [id number] 04/26 TIBC and perce nt sat w/ iron panel TIBC ug/dL 250.0 450.0 283.0 FINAL Mary Palanisa my Serum [facility].52 [address] [facility] [address] [place] [address] CLIA#45D [id number] 04/26 TIBC and perce nt sat w/ iron panel Iron, % satur ation % 15.0 50.0 11 Low FINAL Mary Palanisa my Serum [facility].52 [address] [facility] [address] [place] [address] CLIA#45D [id number] 04/26 CMP Sodiu m mmol/L 136.0 145.0 140 FINAL Mary Palanisa my Plasma [facility].[address] [facility] [address] [place] [address] CLIA#45D [id number] 04/26 CMP Potas sium mmol/L 3.5 5.1 4.9 FINAL Mary Palanisa my Plasma [facility].52 [address] [facility] [address] [place] [address] CLIA#45D [id number] 04/26 CMP Chlor loly mmol/L 97.0 107.0 104 FINAL Mary Palanisa my Plasma [facility].52 [address] [facility] [address] [place] [address] CLIA#45D [id number] 04/26 CMP CO2 mmol/L 21.0 32.0 26.0 FINAL Mary Palanisa my Plasma [facility].52 [address] [facility] [address] [place] [address] CLIA#45D [id number] 04/26 CMP Gluco se mg/dL 74.0 106.0 120 High FINAL Mary Palanisa my Plasma [facility].52 [address] [facility] [address] [place] [address] CLIA#45D [id number] 04/26 CMP BUN mg/dL 7.0 18.0 37 High FINAL Mary Palanisa my Plasma [facility].52 [address] [facility] [address] [place] [address] CLIA#45D [id number] 04/26 CMP Creat inine , mg/dL mg/dL 0.55 1.3 1.42 High FINAL Mary Palanisa my Plasma [facility].[address] [facility] [address] [place] [address] CLIA#45D [id number] 04/26 CMP GFR estim ate mil/mi n/1.73 m2 38 Low Result based on the eGFR 2020 calculati on.60-89 mL/min/1. 73m^2 without kidney damage may be normal.60 -89 mL/min/1. 73m^2 for 3 months or more, along with kidney damage, may indicate early kidney disease.C alculatio n modified to the 2020 formula effective 01/16/23. FINAL Mary Palanisa my Plasma [facility].52 [address] [facility] [address] [place] [address] CLIA#45D [id number] 04/26 CMP BUN/C reati nine ratio 6.0 25.0 26.1 High FINAL Mary Palanisa my Plasma [facility].52 [address] [facility] [address] [place] [address] CLIA#45D [id number] 04/26 CMP Album in g/dL 3.4 5.0 3.2 Low FINAL Mary Palanisa my Plasma [facility].52 [address] [facility] [address] [place] [address] CLIA#45D [id number] 04/26 CMP Calci um mg/dL 8.5 10.1 9.1 FINAL Mary Palanisa my Plasma [facility].52 [address] [facility] [address] [place] [address] CLIA#45D [id number] 04/26 CMP Total prote in g/dL 6.4 8.2 7.8 FINAL Mary Palanisa my Plasma [facility].52 [address] [facility] [address] [place] [address] CLIA#45D [id number] 04/26 CMP Globu ashley g/dL 2.2 4.2 4.6 High FINAL Mary Palanisa my Plasma [facility].[address] [facility] [address] [place] [address] CLIA#45D [id number] 04/26 CMP A/G ratio 0.8 2.0 0.7 Low FINAL Mary Palanisa my Plasma [facility].52 [address] [facility] [address] [place] [address] CLIA#45D [id number] 04/26 CMP Bilir ubin, total mg/dL 0.2 1.0 0.5 FINAL Mary Palanisa my Plasma [facility].52 [address] [facility] [address] [place] [address] CLIA#45D [id number] 04/26 CMP Alkal ine phosp hatas e U/L 46.0 116.0 93 FINAL Mary Palanisa my Plasma [facility].52 [address] [facility] [address] [place] [address] CLIA#45D [id number] 04/26 CMP AST/S GOT U/L 15.0 37.0 17 FINAL Mary Palanisa my Plasma [facility].52 [address] [facility] [address] [place] [address] CLIA#45D [id number] 04/26 CMP ALT/S GPT U/L 14.0 59.0 26 FINAL Mary Palanisa my Plasma [facility].52 [address] [facility] [address] [place] [address] CLIA#45D [id number] 04/26 CBC w/aut o diff with refle x WBC 10^3/u L 4.8 10.8 6.4 FINAL Mary Palanisa my Whole Blood [facility].52 [address] [facility] [address] [place] [address] CLIA#45D [id number] 04/26 CBC w/aut o diff with refle x RBC 10^6/u L 4.2 5.4 4.06 Low FINAL Mary Palanisa my Whole Blood [facility].52 [address] [facility] [address] [place] [address] CLIA#45D [id number] 04/26 CBC w/aut o diff with refle x HGB g/dL 12.0 16.0 11.1 Low FINAL Mary Palanisa my Whole Blood [facility].52 [address] [facility] [address] [place] [address] CLIA#45D [id number] 04/26 CBC w/aut o diff with refle x HCT % 37.0 47.0 37.0 FINAL Mary Palanisa my Whole Blood [facility].52 [address] [facility] [address] [place] [address] CLIA#45D [id number] 04/26 CBC w/aut o diff with refle x MCV fL 81.0 99.0 91.1 FINAL Mary Palanisa my Whole Blood [facility].52 [address] [facility] [address] [place] [address] CLIA#45D [id number] 04/26 CBC w/aut o diff with refle x MCH pg 27.0 31.0 27.3 FINAL Mary Palanisa my Whole Blood [facility].52 [address] [facility] [address] [place] [address] CLIA#45D [id number] 04/26 CBC w/aut o diff with refle x MCHC g/dL 33.0 37.0 30.0 Low FINAL Mary Palanisa my Whole Blood [facility].52 [address] [facility] [address] [place] [address] CLIA#45D [id number] 04/26 CBC w/aut o diff with refle x PLT 10^3/u L 130.0 400.0 256 FINAL Mary Palanisa my Whole Blood [facility].52 [address] [facility] [address] [place] [address] CLIA#45D [id number] 04/26 CBC w/aut o diff with refle x MPV fL 9.4 12.3 10.7 FINAL Mary Palanisa my Whole Blood [facility].52 [address] [facility] [address] [place] [address] CLIA#45D [id number] 04/26 CBC w/aut o diff with refle x RDW % 10.5 14.5 15.9 High FINAL Mary Palanisa my Whole Blood [facility].52 [address] [facility] ty e [address] [place] [address] CLIA#45D [id number] 04/26 CBC w/aut o diff with refle x Jordy % % 40.0 77.0 56.0 FINAL Mary Palanisa my Whole Blood [facility].52 [address] [facility] [address] [place] [address] CLIA#45D [id number] 04/26 CBC w/aut o diff with refle x Jordy # (ANC) 10^3/u L 1.5 6.5 3.57 FINAL Mary Palanisa my Whole Blood [facility].52 [address] [facility] [address] [place] [address] CLIA#45D [id number] 04/26 CBC w/aut o diff with refle x IG % % 0.0 0.5 0.3 FINAL Mary Palanisa my Whole Blood [facility].52 [address] [facility] [address] [place] [address] CLIA#45D [id number] 04/26 CBC w/aut o diff with refle x IG # 10^3/u L 0.0 0.03 0.02 FINAL Mary Palanisa my Whole Blood [facility].52 [address] [facility] [address] [place] [address] CLIA#45D [id number] 04/26 CBC w/aut o diff with refle x LY % % 15.0 41.0 19.6 FINAL Mary Palanisa my Whole Blood [facility].52 [address] [facility] [address] e [address] [place] [address] CLIA#45D [id number] 04/26 CBC w/aut o diff with refle x LY # 10^3/u L 1.2 3.4 1.25 FINAL Mary Palanisa my Whole Blood [facility].52 [address] [facility] [address] [place] [address] CLIA#45D [id number] 04/26 CBC w/aut o diff with refle x MO % % 3.0 11.0 9.7 FINAL Mary Palanisa my Whole Blood [facility].52 [address] [facility] [address] [place] [address] CLIA#45D [id number] 04/26 CBC w/aut o diff with refle x MO # 10^3/u L 0.0 1.0 0.62 FINAL Mary Palanisa my Whole Blood [facility].52 [address] [facility] [address] [place] [address] CLIA#45D [id number] 04/26 CBC w/aut o diff with refle x EO % % 0.0 3.0 13.0 High FINAL Mary Palanisa my Whole Blood [facility].52 [address] [facility] [address] [place] [address] CLIA#45D [id number] 04/26 CBC w/aut o diff with refle x EO # 10^3/u L 0.0 0.3 0.83 High FINAL Mary Palanisa my Whole Blood [facility].52 [address] [facility] [address] [place] [address] CLIA#45D [id number] 04/26 CBC w/aut o diff with refle x BA % % 0.0 1.0 1.4 High FINAL Mary Palanisa my Whole Blood [facility].52 [address] [facility] [address] [place] [address] CLIA#45D [id number] 04/26 CBC w/aut o diff with refle x BA # 10^3/u L 0.0 0.2 0.09 FINAL Mary Palanisa my Whole Blood [facility].[address] [facility] [address] [place] [address] CLIA#45D [id number] 04/26 CBC w/aut o diff with refle x NRBC, % % 0.0 0.2 0.0 FINAL Mary Palanisa my Whole Blood [facility].[address] [facility] [address] [place] [address] CLIA#45D [id number] 04/26 CBC w/aut o diff with refle x NRBC, absol jose, x 10^3/ uL 10^3/u L 0.0 0.01 0.00 FINAL Mary Palanisa my Whole Blood [facility].[address] [facility] [address] [place] [address] CLIA#45D [id number] 04/26 [place] /rodriguez da with K/L ratio , free, serum (mg/d L) [place] [employer] , free mg/L 3.3 19.4 86.9 High FINAL Mary Palanisa my Serum [facility] [place] [address] [address] [address] 04/26 [place] /rodriguez da with K/L ratio , free, serum (mg/d L) [place] a light chain , free mg/L 5.7 26.3 37.3 High FINAL Mary Palanisa my Serum [facility]2 [address] [address] [address] [address] 04/26 [place] /rodriguez da with K/L ratio , free, [...] Mary Rudolph my Serum [facility]2 [address] [place] [address] [address] [address] 11/07 CMP Chlor loly mmol/L 97.0 107.0 106 FINAL [facility].52 [address] [facility] [address] [place] [address] CLIA#45D [id number] 11/07 CMP CO2 mmol/L 21.0 32.0 28.0 FINAL [facility].52 [address] [facility] [address] [place] [address] CLIA#45D [id number] 11/07 CMP Gluco se mg/dL 74.0 106.0 74 FINAL [facility].52 [address] [facility] [address] [place] [address] CLIA#45D [id number] 11/07 CMP BUN mg/dL 7.0 18.0 35 High FINAL [facility].52 [address] [facility] [address] [place] [address] CLIA#45D [id number] 11/07 CMP Creat inine , mg/dL mg/dL 0.55 1.3 1.41 High FINAL [facility].52 [address] [facility] [address] [place] [address] CLIA#45D [id number] 11/07 CMP GFR estim ate mil/mi n/1.73 m2 38 Low Result based on the eGFR 2020 calculati on.60-89 mL/min/1. 73m^2 without kidney damage may be normal.60 -89 mL/min/1. 73m^2 for 3 months or more, along with kidney damage, may indicate early kidney disease.C alculatio n modified to the 2020 formula effective 01/16/23. FINAL [facility].[address] [facility] [address] [place] [address] CLIA#45D [id number] 11/07 CMP BUN/C reati nine ratio 6.0 25.0 24.8 FINAL [facility].[address] [facility] [address] [place] [address] CLIA#45D [id number] 11/07 CMP Calci um mg/dL 8.5 10.1 9.7 FINAL [facility].[address] [facility] [address] [place] [address] CLIA#45D [id number] 11/07 CMP Album in g/dL 3.4 5.0 3.1 Low FINAL [facility].[address] [facility] [address] [place] [address] CLIA#45D [id number] 11/07 CMP Total prote in g/dL 6.4 8.2 7.3 FINAL [facility].[address] [facility] [address] [place] [address] CLIA#45D [id number] 11/07 CMP Globu ashley g/dL 2.2 4.2 4.2 FINAL [facility].[address] [facility] [address] [place] [address] CLIA#45D [id number] 11/07 CMP A/G ratio 0.8 2.0 0.7 Low FINAL [facility].[address] [facility] [address] [place] [address] CLIA#45D [id number] 11/07 CMP Bilir ubin, total mg/dL 0.2 1.0 0.6 FINAL [facility].[address] [facility] [address] [place] [address] CLIA#45D [id number] 11/07 CMP Alkal ine phosp hatas e U/L 46.0 116.0 100 FINAL [facility].[address] [facility] [address] [place] [address] CLIA#45D [id number] 11/07 CMP AST/S GOT U/L 15.0 37.0 26 FINAL [facility].[address] [facility] [address] [place] [address] CLIA#45D [id number] 11/07 CMP ALT/S GPT U/L 14.0 59.0 27 FINAL [facility].52 [address] [facility] [address] [place] [address] CLIA#45D [id number] 11/07 CMP Sodiu m mmol/L 136.0 145.0 143 FINAL [facility].52 [address] [facility] [address] [place] [address] CLIA#45D [id number] 11/07 CMP Potas sium mmol/L 3.5 5.1 4.3 FINAL [facility].52 [address] [facility] [address] [place] [address] CLIA#45D [id number] 11/07 TIBC and perce nt sat w/ iron panel Iron ug/dL 50.0 170.0 60.0 FINAL [facility].[address] [facility] [address] [place] [address] CLIA#45D [id number] 11/07 TIBC and perce nt sat w/ iron panel TIBC ug/dL 250.0 450.0 311.0 FINAL [facility].52 [address] [facility] [address] [place] [address] CLIA#45D [id number] 11/07 TIBC and perce nt sat w/ iron panel Iron, % satur ation % 15.0 50.0 19 FINAL [facility].52 [address] [facility] [address] [place] [address] CLIA#45D [id number] 11/07 Juliet tin panel Juliet tin ng/mL 8.0 252.0 228 FINAL Tayler Jacobs Serum [facility].[address] [facility] [address] [place] [address] CLIA#45D [id number] 11/07 SPEP with immun ofixa tion Total prote in g/dL 6.1 8.1 6.4 FINAL [facility] Serum [facility] [place] [address] [address] 12[place] [address] 11/07 SPEP with immun ofixa tion NOHEMI inter preta tion Results Below Normal pattern. No monoclona l proteins detected. FINAL Luis Brown Serum [facility] [place] [address] [address] 12[place] [address] 11/07 SPEP with immun ofixa tion Album in, SPE g/dL 3.8 4.8 3.4 Low FINAL [facility] Serum [facility] [place] [address] [address] 12[place] [address] 11/07 SPEP with immun ofixa tion Alpha -1 globu ashley g/dL 0.2 0.3 0.3 [facility] [place] [address] [address] 12[place] [address] 11/07 SPEP with immun ofixa tion Alpha -2 globu ashley g/dL 0.5 0.9 0.7 FINAL [facility] Serum [facility] [place] [address] [address] 12[place] [address] 11/07 SPEP with immun ofixa tion Beta- 1 g/dL 0.4 0.6 0.4 FINAL [facility] Serum [facility] [place] [address] [place] 12[place] [address] 11/07 SPEP with immun ofixa tion Beta- 2 g/dL 0.2 0.5 0.4 FINAL [facility] Serum [facility] [place] [address] [address] 12[place] [address] 11/07 SPEP with immun ofixa tion Gamma globu ashley g/dL 0.8 1.7 1.1 FINAL [facility] Serum [facility] [place] [address] [address] 12[place] [address] 11/07 SPEP with immun ofixa tion SPE inter preta tion Results Below Abnormal appearing gamma globulin peak, possibly monoclona l. If indicated ,recommen d immunotyp ing (Test Code: IMTYPB) for further evaluatio n. If the SPEPwas ordered with reflex, immunotyp ing will be resulted upon completio n. FINAL [facility] Serum [facility] [place] [address] [place] [address] [address] 11/07 [place] /rodriguez da with K/L ratio , free, serum (mg/d L) [place] [employer] , free mg/L 3.3 19.4 73.5 High FINAL [facility] Serum [facility] [place] [address] [address] 12[place] [address] 11/07 [place] /rodriguez da with K/L ratio , free, serum (mg/d L) [place] a light chain , free mg/L 5.7 26.3 35.8 High FINAL [facility] Serum [facility] [place] [address] [address] 12[place] [address] 11/07 [place] /rodriguez da with K/L ratio , free, [...] therapy of these disorders . FINAL [facility] Serum [facility] [place] [address] [address] 12[place] [address] 11/07 CBC w/aut o diff with refle x WBC 10^3/u L 4.8 10.8 4.6 Low FINAL Luis Tucker Whole Blood [facility].[address] [place] [address] CLIA#45D [id number] 11/07 CBC w/aut o diff with refle x RBC 10^6/u L 4.2 5.4 4.23 FINAL Luis Tucker Whole Blood [facility].[address] [place] [address] CLIA#45D [id number] 11/07 CBC w/aut o diff with refle x HGB g/dL 12.0 16.0 12.4 FINAL Luis Tucker Whole Blood [facility].[address] [place] [address] CLIA#45D [id number] 11/07 CBC w/aut o diff with refle x HCT % 37.0 47.0 40.8 FINAL Luis Tucker Whole Blood [facility].[address] [place] [address] CLIA#45D [id number] 11/07 CBC w/aut o diff with refle x MCV fL 81.0 99.0 96.5 FINAL Luis Tucker Whole Blood [facility].[address] [place] [address] CLIA#45D [id number] 11/07 CBC w/aut o diff with refle x MCH pg 27.0 31.0 29.3 FINAL Luis Tucker Whole Blood [facility].[address] [place] [address] CLIA#45D [id number] 11/07 CBC w/aut o diff with refle x MCHC g/dL 33.0 37.0 30.4 Low FINAL Luis Tucker Whole Blood [facility].[address] [place] [address] CLIA#45D [id number] 11/07 CBC w/aut o diff with refle x PLT 10^3/u L 130.0 400.0 216 FINAL Luis Tucker Whole Blood [facility].[address] [place] [address] CLIA#45D [id number] 11/07 CBC w/aut o diff with refle x MPV fL 9.4 12.3 10.3 FINAL Luis Tucker Whole Blood [facility].[address] [place] [address] CLIA#45D [id number] 11/07 CBC w/aut o diff with refle x RDW % 10.5 14.5 14.0 FINAL Luis Tucker Whole Blood [facility].[address] [place] [address] CLIA#45D [id number] 11/07 CBC w/aut o diff with refle x Jordy % % 40.0 77.0 59.7 FINAL [facility] Whole Blood [facility].[address] [place] [address] CLIA#45D [id number] 11/07 CBC w/aut o diff with refle x Jordy # (ANC) 10^3/u L 1.5 6.5 2.73 FINAL [facility] Whole Blood [facility].[address] [place] [address] CLIA#45D [id number] 11/07 CBC w/aut o diff with refle x IG % % 0.0 0.5 0.4 FINAL Luis Tucker Whole Blood [facility].[address] [place] [address] CLIA#45D [id number] 11/07 CBC w/aut o diff with refle x IG # 10^3/u L 0.0 0.03 0.02 FINAL Luis Tucker Whole Blood [facility].[address] [place] [address] CLIA#45D [id number] 11/07 CBC w/aut o diff with refle x LY % % 15.0 41.0 19.0 FINAL Luis Brown Whole Blood [facility].[address] [place] [address] CLIA#45D [id number] 11/07 CBC w/aut o diff with refle x LY # 10^3/u L 1.2 3.4 0.87 Low FINAL Luis Brown Whole Blood [facility].[address] [place] [address] CLIA#45D [id number] 11/07 CBC w/aut o diff with refle x MO % % 3.0 11.0 9.8 FINAL Luis Brown Whole Blood [facility].[address] [place] [address] CLIA#45D [id number] 11/07 CBC w/aut o diff with refle x MO # 10^3/u L 0.0 1.0 0.45 FINAL Luis Brown Whole Blood [facility].[address] [place] [address] CLIA#45D [id number] 11/07 CBC w/aut o diff with refle x EO % % 0.0 3.0 9.6 High FINAL Luis Brown Whole Blood [facility].[address] [facility] [address] [place] [address] CLIA#45D [id number] 11/07 CBC w/aut o diff with refle x EO # 10^3/u L 0.0 0.3 0.44 High FINAL Luis Brown Whole Blood [facility].[address] [place] [address] CLIA#45D [id number] 11/07 CBC w/aut o diff with refle x BA % % 0.0 1.0 1.5 High FINAL Luis Brown Whole Blood [facility].[address] [place] [address] CLIA#45D [id number] 11/07 CBC w/aut o diff with refle x BA # 10^3/u L 0.0 0.2 0.07 FINAL [facility] Blood [facility].[address] [facility] [address] [place] [address] CLIA#45D [id number] 11/07 CBC w/aut o diff with refle x NRBC, % % 0.0 0.2 0.0 FINAL [facility] Blood [facility].[address] [address] [place] [address] CLIA#45D [id number] 11/07 CBC w/aut o diff with refle x NRBC, absol jose, x 10^3/ uL 10^3/u L 0.0 0.01 0.00 FINAL [facility] Blood [facility] [place] [address] CLIA#[id number] Medications Date Name Route Dose Frequency Instructions [...] Section * REYES HemOnc Follow Up - [facility] Oncology [address] [address] P:?? PATIENT:??JAMESON DOTSON :??1945 Date of Service:??07/07/2023 [...] insufficiency and proteinuria.?? 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
--- NOTE | 2025-01-28 18:37 | ECG_ITS ---
Test Date: 2025-01-28 18:58:02 Measurements Intervals [place] Rate: 75 P: 62 PA: 136 QRS: -3 QRSD: 96 T: 14 QT: 389 QTc: 435 Interpretive Statements SINUS RHYTHM NONSPECIFIC ST ELEVATION IN HIGH LATERAL LEADS BASELINE ARTIFACT- I, II, III, AVR, AVL,A VF, V1-V6 BORDERLINE ECG No previous ECG available for comparison Electronically Signed On 01-28-2025 20:40:37 CDT by Yovany Campo D.O.
[2025-01-28 18:50] VITALS: BP 118/57; PULSE 79; RESP 18; TEMP 36.6; O2SAT 98
[2025-01-28 19:18] LABS: Basophils Absolute Auto 0.1 K/mm3 (0.0-0.1); Basophils Percent Auto 1.4 % (0.2-1.2); Eosinophils Absolute Auto 0.5 K/mm3 (0-0.3); Eosinophils Percent Auto 7.4 % (0-4.4); Hematocrit 39.2 % (37.0-47.0); Hemoglobin 11.7 g/dL (12.0-15.0); Immature Granulocyte Absolute 0.02 K/mm3 (0.00-0.031); Immature Granulocyte Percent A 0.3 % (0-0.5); Lymphocytes Absolute Auto 1.43 K/mm3 (0.9-3.2); Lymphocytes Percent Auto 22.6 % (18.3-44.2); Mean Corpuscular HGB Conc 29.8 g/dl (32-36); Mean Corpuscular Hemoglobin 28.8 pg (26-34); Mean Corpuscular Volume 96.6 fl (80-100); Mean Platelet Volume 10.9 fl (7.4-10.4); Monocytes Absolute Auto 0.7 K/mm3 (0.1-0.6); Monocytes Percent Auto 11.2 % (2.6-8.5); Neutrophils Absolute Auto 3.6 K/mm3 (1.3-6.7); Neutrophils Percent Auto 57.1 % (45.5-73.1); Platelet Count Result 202 k/mm3 (150-375); Red Blood Count 4.06 M/mm3 (4.2-5.4); Red Cell Distribution Width 15.5 % (11.5-14.5); White Blood Count 6.3 K/mm3 (4.5-10.0)
[2025-01-28 19:40] LABS: Partial Thromboplastin Time 30.1 Seconds (22.3-36.8); Prothrombin Time 13.6 Seconds (11.1-14.7)
--- OUTSIDE RECORDS SUMMARY | 2025-01-28 19:45 | XMS_ITS | Encounter Summary ---
Author Organization [facility] Address [address] [address] [place] [address] Care Team Providers Care Agricultural Adviser Name Role Phone Jose Manuel Garner MD Unavailable Carlo Vela MD Unavailable [phone] Aurora Becerra APRN, FNP Unavailable Edmond Villarreal MD Unavailable [phone] Gianni Dick MD Unavailable [phone] Kishor Walker MD Unavailable Mary Gomez MD Unavailable [phone] Ritesh Meadows MD Unavailable [phone] Jarad Booker DO Unavailable Dc Huynh MD Unavailable [phone] Fritz Rivera DO Unavailable [phone] Logan Babin DO Unavailable [phone] Kadeem Aguayo MD Primary Care Provider [phone] Elmer Lopez DO Unavailable Jeannie Machado RN Unavailable [phone] Reason for Referral * Specialty Diagnoses / Procedures Referred By Edith t Referred To Contact [facility] Family Medicine Res[facility] [place] [address] [place] [address] Phone: tel: Referral ID Status Reason Start Date Expiration Date Visits Re quested Visits 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 Encounter Details Date Type Department Care Team (Late st Contact Info) Description 12/08/2023 Orders Only [facility] [address] [place] [address] Social History Tobacco Use Types Packs/Day Years Used Date Smoking Tobacco: Former Cigarettes 2 35 0 11/1967 - 11/2002 Smokeless Tobacco: Never Alcohol Use Standard Drinks/Week Comments No 0 (1 standard drink = 0.6 oz pur e alcohol) [facility] Utilities Answer Date Recorded In the past 12 months has th e electric, gas, oil, or water company threatened to shut off services in your home? No 12/07/2023 AUDIT-C Answer Date Recorded Q1: How often do you have a drink containing alcohol? Never 12/07/2023 Q2: How many drinks containi ng alcohol do you have on a typical day when you are drinking? Patient does not drink Q3: How often do you have si x or more drinks on one occasion? Never 12/07/2023 Overall Financial Resource Strain (CARDIA) Answe r Date Recorded How hard is it for you to pa y for the very basics like food, housing, medical care, and heating? Not hard at all 12/07/2023 Social Connections Answer Date Recorded Are you lonely most days? No 2023 Support System Not on file 12/07/2023 Who Would Help You Not on file 12/07/2023 Depression Answer Date Recorded PHQ-2 Score 0 12/07/2023 Last PHQ-9 Score Not on file 12/07/2023 Interpersonal Safety Answer Date Record ed Feels UN-safe at Home or Work/School no 11/06/2023 Food Insecurity Answer Date Recorded Within the past 12 months, y ou worried that your food would run out before you got the money to buy more. Never true 12/07/19 24 Within the past 12 months, t he food you bought just didn't last and you didn't have money to get more. Never true 12/07/2023 Transportation Answer Date Recorded In the past 12 months, has l ack of transportation kept you from medical appointments or from getting medications? No 11/19 In the past 12 months, has l ack of transportation kept you from meetings, work, or from getting things needed for daily living? No 12/07/2023 Housing Stability Answer Date Recorded Homeless in the Last Year Not on file 2023 In the last 12 months, was t here a time when you were not able to pay the mortgage or rent on time? No 12/07/2023 Number of Times Moved in the Last Year Not on fi le 12/07/2023 Comments No Sex and Gender Information Value Date Recorded Sex Assigned at Not on file Legal Sex Female 10:41 AM CDT Gender Identity Not on file Sexual Orientation Not on file Occupation Industry Job Start Date Job End Date RETIRED Not on file Not on file Not on file documented as of this encounter Mental Status * Because of a physical, mental, or emotional condition, does this person have serious difficulty concentrating, remembering, or making decisions? 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 documented in this encounter Plan of Treatment Upcoming Encounters Date Type Department Care Team (Late st Contact Info) Description 02/02/2025 9:40 AM CDT Office Visit [facility] [address] [place] [address] Eloisa Mullen, DO [address] [place], [place] [id number] 08/22/2025 10:20 AM FISH STRINGER ASSEMBLER Office Visit [facility] [address] [place] [address] Mary Moncada, DO [address] [place], [place] [id number] 09/17/2025 9:30 AM FISH STRINGER ASSEMBLER Ancillary Procedure [facility] [place] [address] [place], [place] [id number] 10/04/2025 11:15 AM FISH STRINGER ASSEMBLER Office Visit [facility] [place] [address] [facility] [address] [place] [address] Gianni Dick MD [address] [place] [address] [id number] documented as of this encounter Goals Goal Patient Goal Type Associated Problems Recent Progress Patient-Stated? Author UROLOGIC SURGEON Systolic Heart Failure Plan Disease Management No Gianni Dick MD Note: Images from the original note were not included. Low-Sodium Eating Plan Sodium raises blood pressure and causes water to be held in the body. Getting less sodium from food will help lower your blood pressure, reduce any swelling, and protect your heart, liver, and kidneys. We get sodium by adding salt (sodium chloride) to food. Most of our sodium comes from canned, boxed, and frozen foods. Restaurant foods, fast foods, and pizza are also very high in sodium. Even if you take medicine to lower your blood pressure or to reduce fluid in your body, getting less sodium from your food is important. WHAT IS MY PLAN? Most people should limit their sodium intake to 2,000 mg a day. Your health care provider recommends that you limit your sodium intake to a day. WHAT DO I NEED TO KNOW ABOUT THIS EATING PLAN? For the low-sodium eating plan, you will follow these general guidelines: Choose foods with a % Daily Value for sodium of less than 5% (as listed on the food label). Use salt-free seasonings or herbs instead of table salt or sea salt. Check with your health care provider or pharmacist before using salt substitutes. Eat fresh foods. Eat more vegetables and fruits. Limit canned vegetables. If you do use them, rinse them well to decrease the sodium. Limit cheese to 1 oz (28 g) per day. Eat lower-sodium products, often labeled as lower sodium or no salt added. Avoid foods that contain monosodium glutamate (MSG). MSG is sometimes added to Ukrainian food and some canned foods. Check food labels (Nutrition Facts labels) on foods to learn how much sodium is in one serving. Eat more home-cooked food and less restaurant, buffet, and fast food. When eating at a restaurant, ask that your food be prepared with less salt, or no salt if possible. HOW DO I READ FOOD LABELS FOR SODIUM INFORMATION? The Nutrition Facts label lists the amount of sodium in one serving of the food. If you eat more than one serving, you must multiply the listed amount of sodium by the number of servings. Food labels may also identify foods as: Sodium free--Less than 5 mg in a serving. Very low sodium--35 mg or less in a serving. Low sodium--140 mg or less in a serving. Light in sodium--50% less sodium in a serving. For example, if a food that usually has 300 mg of sodium is changed to become light in sodium, it will have 150 mg of sodium. Reduced sodium--25% less sodium in a serving. For example, if a food that usually has 400 mg of sodium is changed to reduced sodium, it will have 300 mg of sodium. WHAT FOODS CAN I EAT? Grains Low-sodium cereals, including oats, puffed wheat and rice, and shredded wheat cereals. Low-sodium crackers. Unsalted rice and pasta. Lower-sodium bread. Vegetables Frozen or fresh vegetables. Low-sodium or reduced-sodium canned vegetables. Low-sodium or reduced-sodium tomato sauce and paste. Low-sodium or reduced- sodium tomato and vegetable juices. Fruits Fresh, frozen, and canned fruit. Fruit juice. Meat and Other Protein Products Low-sodium canned tuna and salmon. Fresh or frozen meat, poultry, seafood, and fish. Robbins. Unsalted nuts. Dried beans, peas, and lentils without added salt. Unsalted canned beans. Homemade soups without salt. Eggs. Dairy Milk. Soy milk. Ricotta cheese. Low-sodium or reduced-sodium cheeses. Yogurt. Condiments Fresh and dried herbs and spices. Salt-free seasonings. Onion and garlic powders. Low-sodium varieties of mustard and ketchup. Fresh or refrigerated horseradish. Lemon juice. Fats and Oils Reduced-sodium salad dressings. Unsalted butter. Other Unsalted popcorn and pretzels. The items listed above may not be a complete list of recommended foods or beverages. Contact your dietitian for more options. WHAT FOODS ARE NOT RECOMMENDED? Grains Instant hot cereals. Bread stuffing, pancake, and biscuit mixes. Croutons. Seasoned rice or pasta mixes. Noodle soup cups. Boxed or frozen macaroni and cheese. Self-rising flour. Regular salted crackers. Vegetables Regular canned vegetables. Regular canned tomato sauce and paste. Regular tomato and vegetable juices. Frozen vegetables in sauces. Salted Albanian fries. Olives. Pickles. Relishes. Sauerkraut. Salsa. Meat and Other Protein Products Salted, canned, smoked, spiced, or pickled meats, seafood, or fish. Billy, ham, sausage, hot dogs, corned beef, chipped beef, and packaged luncheon meats. Salt pork. Jerky. Pickled macias. Anchovies, regular canned tuna, and sardines. Salted nuts. Dairy Processed cheese and cheese spreads. Cheese curds. Blue cheese and cottage cheese. Buttermilk. Condiments Onion and garlic salt, seasoned salt, table salt, and sea salt. Canned and packaged gravies. Worcestershire sauce. Tartar sauce. Barbecue sauce. Teriyaki sauce. Soy sauce, including reduced sodium. Steak sauce. Fish sauce. Oyster sauce. Cocktail sauce. Horseradish that you find on the shelf. Regular ketchup and mustard. Meat flavorings and tenderizers. Bouillon cubes. Hot sauce. Tabasco sauce. Marinades. Taco seasonings. Relishes. Fats and Oils Regular salad dressings. Salted butter. Margarine. Ghee. Billy fat. Other Potato and tortilla chips. Denton chips and puffs. Salted popcorn and pretzels. Canned or dried soups. Pizza. Frozen entrees and pot pies. The items listed above may not be a complete list of foods and beverages to avoid. Contact your dietitian for more information. This information is not intended to replace advice given to you by your health care provider. Make sure you discuss any questions you have with your health care provider. Document Released: 03/26/2003 Document Revised: 10/25/2015 Document Reviewed: 08/08/2014 L8 [employer] Interactive Patient Education 2016 [employer]. Weight Management Action Plan Weight No Cooper lonaHipolito HERON collins Note: Healthy Choices for Healthy Weight You can take control of your health by making choices for healthier weight and body mass index (BMI). BMI is one measure of your health and your risk for having problems in the future. Your choices about activities and eating affect your weight and BMI. It is normal for people to feel like they can t lose weight or keep it off. Every small step you take in that direction makes a difference. Talk with your provider about getting started. The buttermaker helper goal is to get to and stay at a healthy weight and BMI. Every time you choose healthier activity and eating, you are moving a little closer to that goal. Healthy Activity Choices: Be active in some way every day. It is ok to start slow! Try to be a little more active each week. Over a few months, your body will adjust to your active choices. Find little ways to be more active. Take the stairs instead of the elevator. Move around for 5 minutes every hour by taking a short walk. Stand, walk, or do simple exercises during screen time on your TV, computer, or phone. Long periods of sitting are not good for the body. Keep track of your activity with a s teps meter on a watch, phone, or pedometer. Work your way up to at least 5,000 steps/day. ParkingCarmaPal and [employer] are examples free and fun apps that can help keep track of your activity. Try searching f baldo in the joseph store for more ideas. Mix things up with different types of activities so you don t get bored and to avoid injuries. Examples: walking, biking, swimming, bowling, gardening, karla chi, weight lifting or other activities you like. Long-term, aim for 150 minutes of moderate-intensity activity like brisk walking a week. Or, aim for 75 minutes of vigorous activity like jogging, running or swimming each week. Healthy Eating Choices Eat a lot of fresh vegetables (2 to 3 cups/day) and fruits (about 2 cups/day). Cover your place with vegetables at each meal. Choose fresh vegetables and fruits instead of canned or packaged vegetables and fruits as often as you can. Eat more chicken and fish. Eat less fatty meat like beef and pork. Eat breakfast and make sure you get protein at breakfast. People who skip breakfast tend to weigh more. Pack a healthy lunch instead of eating out. Chew sugar-free gum between meals to cut down on unhealthy snacking. Choose not to eat much fast food , fried food, or food that is high in fat. Examples: moldovan fries, hamburgers, chicken nuggets, and pizza. Choose drinks that are low in sugar or fructose like water, unsweetened tea, and low calorie drinks. Stay away from soft drinks, fruit juices (even n atural ), fruit drinks, energy drinks, sweetened iced tea, and whole or flavored milk. Limit alcoholic drinks to 1 a day. They are high in calories. Eat fewer starchy foods like white potatoes, white rice, bread, or other fast digesting carbohydrates. 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 documented in this encounter Results * Amb Referral to Home Health-Face to Face (12/08/2023 2:03 PM FISH STRINGER ASSEMBLER) us [facility] Scanning Provider OUTPATIENT REFERRAL ORDERA BLES Final Result documented in this encounter Visit Diagnoses Not on filedocumented in this encounter Additional Health Concerns Assessment Noted Time PHQ-9 Depression Total Score: 12 023 10:47 AM FISH STRINGER ASSEMBLER A fall risk assessment has been complete d for the patient 11/19/2020 10:48 AM FISH STRINGER ASSEMBLER A Body Mass Index follow-up plan has been documented for the patient 03/25/2018 8:55 AM CDT documented as of this encounter Care Teams Agricultural Adviser Relationship Specialty Start Date End Date Kadeem Aguayo MD [address] [facility] [facility] [address] [place] [address] PCP - General Family Medicine 10/27/23 Jose Manuel Garner MD [address] [place] [address] Consulting Physician Neurology 08/16/18 Carlo Vela MD [address] [place], [place] [id number] Consulting Physician Pain Medicine 08/16/18 Aurora Becerra APRN, ACCOUNTING SUPERVISOR [address] [place] [address] Drive [address] [place], [place] [id number] Registered Nurse Family Medicine 03/25/20 Edmond Villarreal MD [address] [place] [address] Dr [address] [place] [address] Nephrology 11/19/20 Gianni Dick MD [address] [place] [address] Dr [address] [place] [address] Interventional Cardiology 11/19/20 Kishor Walker MD [address] [place] [address] [address] [place] [address] Pulmonary Disease 11/19/20 Mary Gomez MD [address] [place] [address] [address] [place] [address] Hematology and Oncology 12/31/21 Ritesh Meadows MD [address] [place], [place] [id number] Orthopedic Surgery 08/06/22 Jarad Booker DO [address] [facility] [address] [place] [address] Bariatrics 06/24/23 Dc Huynh MD [address] [place] [address] [address] [place] [address] Gastroenterology 07/28/23 Fritz Rivera DO [address] [place] [address] [address] [place], [place] [id number] Family Medicine 09/13/23 Logan Babin DO [address] [place] [address] Family Medicine 10/21/23 Elmer Lopez DO [address] [place], [place] [id number] Resident Family Medicine 12/07/23 Jeannie Machado, RN hospital fellow Longitudinal Care Management 12/26/23 03/26/24 documented as of this encounter
--- OUTSIDE RECORDS SUMMARY | 2025-01-28 19:45 | XMS_ITS | Encounter Summary ---
Author Organization [facility] Address [address] [facility] [place] [address] Care Team Providers Care Registered Occupational Therapist Name Role Phone Jose Manuel Garner MD Unavailable Carlo Vela MD Unavailable [phone] Kadeem Aguayo MD Primary Care Provider Aurora Becerra APRN, FNP Unavailable Edmond Villarreal MD Unavailable [phone] Gianni Dick MD Unavailable [phone] Kishor Walker MD Unavailable Vannessa Bernal MD Unavailable [phone] Mary Gomez MD Unavailable [phone] Carlene Malave RN Unavailable [phone] Ritesh Meadows MD Unavailable [phone] Dc Huynh MD Unavailable [phone] Jeannie Machado RN Unavailable [phone] Jarad Booker DO Unavailable Dc Huynh MD Unavailable [phone] Genna Vazquez DO Primary Care Provider [phone] Fritz Rivera DO Unavailable [phone] Logan Babin DO Unavailable [phone] Kadeem Aguayo MD Primary Care Provider [phone] Elmer Lopez DO Unavailable Jeannie Machado RN Unavailable [phone] Encounter Details Date Type Department Care Team (Late st Contact Info) Description 10/09/2020 Orders Only [facility] [address] [place] [address] Elizabeth Landrum, RN Pre-op testing (Primary Dx) Social History Tobacco Use Types Packs/Day Years Used Date Smoking Tobacco: Former Cigarettes 2 35 0 11/1967 - 11/2002 Smokeless Tobacco: Never Alcohol Use Standard Drinks/Week Comments No 0 (1 standard drink = 0.6 oz pur e alcohol) AUDIT-C Answer Date Recorded Q1: How often do you have a drink containing alc ohol? Never 04/05/2020 Average Number of Drinks Not on file 020 Q3: How often do you have si x or more drinks on one occasion? Never 04/05/2020 Overall Financial Resource Strain (CARDIA) Answe r Date Recorded How hard is it for you to pa y for the very basics like food, housing, medical care, and heating? Not hard at all 09/03/2020 Hunger Vital Sign Answer Date Recorded Within the past 12 months, y ou worried that your food would run out before you got the money to buy more. Never true 09/03/20 20 Within the past 12 months, t he food you bought just didn't last and you didn't have money to get more. Never true 09/03/2020 PRAPARE - Transportation Answer Date Re corded In the past 12 months, has l ack of transportation kept you from medical appointments or from getting medications? No 08/18 In the past 12 months, has l ack of transportation kept you from meetings, work, or from getting things needed for daily living? No 09/03/2020 Depression Answer Date Recorded PHQ-2 Score 0 09/05/2019 Last PHQ-9 Score Not on file 09/05/2019 Comments No Sex and Gender Information Value Date Recorded Sex Assigned at Not on file Legal Sex Female 10:41 AM CDT Gender Identity Not on file Sexual Orientation Not on file COVID-19 Exposure Response Date Recorded In the last month, have you been in contact with someone who was confirmed or suspected to have Coronavirus / COVID-19? No / Unsure 10/12/2020 8:46 AM ANALYTICAL CHEMISTRY TEACHER documented as of this encounter Functional Status documented as of this encounter Mental Status * Because of a physical, mental, or emotional condition, does this person have serious difficulty concentrating, remembering, or making decisions? Answer Entry Date Author No 09/05/2019 10:35 AM ANALYTICAL CHEMISTRY TEACHER documented in this encounter Plan of Treatment Upcoming Encounters Date Type Department Care Team (Late st Contact Info) Description 02/02/2025 9:40 AM CDT Office Visit [facility] - [facility] [address] [place] [address] Eloisa Mullen [address] [place], [place] [phone] 08/22/2025 10:20 AM ANALYTICAL CHEMISTRY TEACHER Office Visit [facility] - [facility] [address] [place] [address] Mary Moncada, [address] [place], [place] [phone] 09/17/2025 9:30 AM ANALYTICAL CHEMISTRY TEACHER Ancillary Procedure [facility] [place] [address] [place] [address] 10/04/2025 11:15 AM ANALYTICAL CHEMISTRY TEACHER Office Visit [facility] [place] [address] [place] [address] Gianni Dick MD [address] [place] [id number] documented as of this encounter Goals Goal Patient Goal Type Associated Problems Recent Progress Patient-Stated? 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 MSG is sometimes added to Bulgarian food and some canned foods. Check food [...] vegetable juices. Frozen vegetables in sauces. Salted Mongolian fries. Olives. Pickles. Relishes. Sauerkraut. Salsa. Meat [...] Billy fat. Other Potato and tortilla chips. Forest chips and puffs. Salted popcorn and pretzels. [...] 03/26/2003 Document Revised: 10/25/2015 Document Reviewed: 08/08/2014 [employer] Interactive Patient Education 2016 [employer]. Weight Management Action Plan Weight No Hipolito Burch MA Note: Healthy Choices for Healthy Weight You [...] with your provider about getting started. The skilled nursing goal is to get to and stay [...] way up to at least 5,000 steps/day. Divide and DewMobile are examples free and fun apps that can help keep track of your activity. Try searching f [place] in the joseph store for more ideas. [...] food that is high in fat. Examples: dutch fries, hamburgers, chicken nuggets, and pizza. Choose [...] sources: Book: Eat This, Not That Online: ClrTouch Google: Mediterranean diet documented as of this encounter Procedures Procedure Name Priority Date/Time Associated Diagnosis Comments SARS-COV-2 (COVID-19) VIRUS, CHESTER Routine 10/12/2020 8:55 AM ANALYTICAL CHEMISTRY TEACHER Pre-op testing documented in this encounter Results * Coronavirus (CoVID-19), CHESTER (10/12/2020 8:55 AM ANALYTICAL CHEMISTRY TEACHER) SARS-Co-V2 (COVID-19) Virus, CHESTER Not Detect Not Detect 10/12/2020 10:49 PM ANALYTICAL CHEMISTRY TEACHER [facility] Comment: The sample was analyzed using one or a combination of Real-Time PCR based methods and multiplex reagents including that utilize primer/probe sets specific for the detection of SARS-CoV-2 (COVID-19). The limit of detection of these assays is at least equal to or less than 50 copies/ml. The SARS-CoV-2(COVID-19) assays has been submitted for EUA approval from the FDA. This test was developed and its performance determined by the [facility] [address] [place] [address]. It has not been cleared or approved by the U.S. Food and Drug Administration. This test is used for clinical purposes. It should not be regarded as investigational or for research. This laboratory is certified under the Clinical Laboratory Improvement Amendments of 1988 (CLIA) as qualified to perform high complexity clinical testing (CLIA # [id number]). NASOPHARYNGEAL STRUCTURE / Unknown 10/12/2020 8:55 AM ANALYTICAL CHEMISTRY TEACHER 10/12/2020 11:21 AM ANALYTICAL CHEMISTRY TEACHER us Gianni Dick MD MICROBIOLOGY - GENERAL ORDER TRISTA Final Result [facility] AT [address] [address] documented in this encounter Visit Diagnoses Diagnosis Pre-op testing- Primary Unspecified pre-operative examination documented in this encounter Additional Health Concerns Infection Onset Date Last Indicated Resolved Time COVID-19 Suspected 10/09/2020 10/12/2020 3:09 AM ANALYTICAL CHEMISTRY TEACHER Respiratory Suspected 09/05/2023 09/05/20232022 7:48 PM ANALYTICAL CHEMISTRY TEACHER Respiratory Suspected 09/22/2023 09/22/20232022 9:32 AM ANALYTICAL CHEMISTRY TEACHER Mycoplasma Pneumoniae Suspec scott Comment:Antibodies order placed at [facility]. 09/22/2023 09/22/2023 09/27/2023 12:14 PM ANALYTICAL CHEMISTRY TEACHER Respiratory Suspected 10/21/2023 10/21/20232023 1:16 PM ANALYTICAL CHEMISTRY TEACHER Assessment Noted Time PHQ-9 Depression Total Score: 6 08/16/20 18 11:25 AM CDT A fall risk assessment has been complete d for the patient 08/06/2020 10:09 AM CDT A Body Mass Index follow-up plan has been documented for the patient 03/25/2018 8:55 AM CDT documented as of this encounter Care Teams Registered Occupational Therapist Relationship Specialty Start Date End Date Kadeem Aguayo MD [address] [place] [address] PCP - General Family Medicine 08/24/19 08/26/23 Genna Vazquez DO [address] [place], [place] [phone] PCP - General Family Medicine 08/27/23 10/26/23 Kadeem Aguayo MD [address] [place] [address] PCP - General Family Medicine 10/27/23 Jose Manuel Garner MD [address] [place] [address] Consulting Physician Neurology 08/16/18 Carlo Vela MD [address] [place], [place] [id number] Consulting Physician Pain Medicine 08/16/18 Aurora Becerra APRN, KITCHEN LEAD [address] [place] [address] [address] [place], [place] [phone] Registered Nurse Family Medicine 03/25/20 Edmond Villarreal MD [address] [place] [address] Dr [address] [place], [place] [phone] Nephrology 11/19/20 Gianni Dick MD [address] [place] [address] Dr [address] [place], [place] [phone] Interventional Cardiology 11/19/20 Kishor Walker MD [address] [place] [address] [address] [place], [place] [phone] Pulmonary Disease 11/19/20 Vannessa Bernal MD [address] [place] [address] [address] [place] [address] Medical Oncology 11/19/20 12/30/21 Mary Gomez MD [address] [place] [address] Dr [address] [place] [address] Hematology and Oncology 12/31/21 Carlene Malave, RN [place], [place] dungeon master Longitudinal Care Management 01/25/23 02/23/23 Ritesh Meadows MD [address] [place], [place] [phone] Orthopedic Surgery 08/06/22 Dc Huynh MD [address] [place] [address] [address] [place], [place] [phone] Gastroenterology 02/23/23 11/14/23 Jeannie Machado RN dungeon master Longitudinal Care Management 02/24/23 11/26/23 Jarad Booker DO [address] [facility] [address] [place], [place] [phone] Bariatrics 06/24/23 Dc Huynh MD [address] [facility] [facility] [address] [place], [place] [phone] Gastroenterology 07/28/23 Fritz Rivera DO [address] [place], [place] [phone] Family Medicine 09/13/23 Logan Babin DO [address] [place], [place] [id number] Family Medicine 10/21/23 Elmer Lopez DO [address] [place], [place] [phone] Resident Family Medicine 12/07/23 Jeannie Machado RN dungeon master Longitudinal Care Management 12/26/23 03/26/24 documented as of this encounter
--- OUTSIDE RECORDS SUMMARY | 2025-01-28 19:45 | XMS_ITS | Encounter Summary ---
Author Organization [facility] Address [address] [address] Care Team Providers Care Nuclear Unit Operator Name Role Phone Jose Manuel Garner MD Unavailable Carlo Vela MD Unavailable [phone] Kadeem Aguayo MD Primary Care Provider [phone] Aurora Becerra APRN, CLOSET BUILDER Unavailable Reason for Visit * MRI/CAT Scan (Routine) - Closed Specialty Diagnoses / Procedures Referred By Contac t Referred To Contact Radiology Diagnoses Shortness of breath Leg swelling CTA CORONARY PER RONIT Procedures CTA CORONARY W OR WO SCORING CTA CORONARY W OR WO SCORING Gianni Dick MD Phone: tel: fax: [address] [address] Phone: tel: Referral ID Status Reason Start Date Expiration Date Visits Re quested Visits Authorized [id number] Closed 09/27/2020 03/24/2021 1 1 Encounter Details Date Type Department Care Team (Late st Contact Info) Description 09/27/2020 9:13 AM SALES OPERATIONS CONSULTANT Hospital Encounter [address] [id number] Social History Tobacco Use Types Packs/Day Years Used Date Smoking Tobacco: Former Cigarettes 2 35 0 11/1967 - 11/2002 Smokeless Tobacco: Never Alcohol Use Standard Drinks/Week Comments No 0 (1 standard drink = 0.6 oz pur e alcohol) [facility] Utilities Answer Date Recorded In the past [...] Depression Answer Date Recorded PHQ-2 Score 0 12/29/2024 Last PHQ-9 Score 6 12/29/2024 Interpersonal Safety Answer Date Record ed Feels UN-safe at Home or Work/School no 01/06/2024 Food Insecurity Answer Date Recorded Within the [...] file Not on file Not on file COVID-19 Exposure Response Date Recorded In the last 10 days, have yo u been in contact with someone who was confirmed or suspected to have Coronavirus/COVID-19? No / Unsure 03/09/2023 12:50 PM CDT documented as of this encounter Last Filed Vital Signs Vital Sign Reading Time Taken Comments Blood Pressure 116/72 09/27/2020 9:45 AM SALES OPERATIONS CONSULTANT Pulse 78 09/27/2020 9:50 AM SALES OPERATIONS CONSULTANT Temperature - - Respiratory Rate - - Oxygen Saturation - - Inhaled Oxygen Concentration - - Weight - - Height - - Body Mass Index - - documented in this encounter Functional Status * Question Answer Date of Assessment Author Little interest or pleasure in doing things Not at all 12/29/2024 1:11 PM Mercedes Medina CMA Feeling down, depressed, or hopeless Not at all 12/29/2024 1:11 PM Aundrea Medina CMA Patient Health Questionnaire-2 Score 0 12/29/2024 1:11 PM Aundrea Medina CMA Trouble falling or staying asleep, or sleeping too much Nearly every day 12/29/2024 1:11 PM Aundrea Medina CMA Feeling tired or having little energy Nearly every day 12/29/2024 1:11 PM Aundrea Medina CMA Poor appetite or overeating Not at all 12/29/2024 1:11 PM Aundrea Medina CMA Feeling bad about yourself - or that you are a failure or have let yourself or your family down Not at all 12/29/2024 1:11 PM Aundrea Medina CMA Trouble concentrating on things, such as reading the newspaper or watching television Not at all 12/29/2024 1:11 PM Aundrea Medina CMA Moving or speaking so slowly that other people could have noticed? Or the opposite - being so fidgety or restless that you have been moving around a lot more than usual. Not at all 12/29/2024 1:11 PM Aundrea Medina CMA Thoughts that you would be better off or hurting yourself in some way Not at all 12/29/2024 1:11 PM Aundrea Medina CMA Patient Health Questionnaire-9 Score 6 12/29/2024 1:11 PM Aundrea Medina CMA * If you checked off any problems on this questionnaire so far, Question Answer Date of Assessment Author How difficult have these problems made it for you to do your work, take care of things at home, or get along with other people? Not difficult at all 12/29/2024 1:11 PM Aundrea Medina CMA documented as of this encounter Mental Status * Because of a physical, mental, or emotional condition, does this person have serious difficulty concentrating, remembering, or making decisions? Answer Entry Date Author No 09/05/2019 10:35 AM SALES OPERATIONS CONSULTANT documented in this encounter Plan of Treatment Upcoming Encounters Date Type Department Care Team (Late st Contact Info) Description 02/02/2025 9:40 AM CDT Office Visit [facility] - [facility] [address] [place] [address] Eloisa Mullen, DO [address] [place], [place] [phone] 08/22/2025 10:20 AM SALES OPERATIONS CONSULTANT Office Visit [facility] - [facility] [address] [place] [address] Mary Moncada, DO [address] [place], [place] [phone] 09/17/2025 9:30 AM SALES OPERATIONS CONSULTANT Ancillary Procedure [facility] [place] [address] [place] [address] 10/04/2025 11:15 AM SALES OPERATIONS CONSULTANT Office Visit [facility] [place] [address] [facility] [address] [place] [address] Gianni Dick MD [address] [facility] [address] [place] [address] documented as of this encounter Goals Goal Patient Goal Type Associated Problems Recent Progress Patient-Stated? Author ARMATURE INSPECTOR Systolic Heart Failure Plan Disease Management No [...] glutamate (MSG). MSG is sometimes added to Upper Sorbian food and some canned foods. Check food [...] vegetable juices. Frozen vegetables in sauces. Salted Arabic fries. Olives. Pickles. Relishes. Sauerkraut. Salsa. Meat [...] Billy fat. Other Potato and tortilla chips. [place] chips and puffs. Salted popcorn and pretzels. [...] 03/26/2003 Document Revised: 10/25/2015 Document Reviewed: 08/08/2014 [employer] Interactive Patient Education 2016 [employer]. Weight Management Action Plan Weight No Hipolito Burch HERON collins Note: Healthy Choices for Healthy [...] with your provider about getting started. The intermediate project manager goal is to get to and stay [...] way up to at least 5,000 steps/day. PogoappPal and Financial Guard are examples free and fun apps that can help keep track of your activity. Try searching f Pixonic in the joseph store for more ideas. [...] food that is high in fat. Examples: nicaraguan fries, hamburgers, chicken nuggets, and pizza. Choose [...] sources: Book: Eat This, Not That Online: auctionpoint Google: Mediterranean diet documented as of this encounter Procedures Procedure Name Priority Date/Time Associated Diagnosis Comments CTA CORONARY W OR WO SCORING W FFR Routine 09/27/2020 10:49 AM SALES OPERATIONS CONSULTANT Shortness of breath Leg swelling documented in this encounter Visit Diagnoses Not on filedocumented in this encounter Administered Medications Inactive Administered Medications - up to 3 most recent administrations Medication Order MAR Action Action Date Dose Rate Site iohexoL (OMNIPAQUE) 350 mg iodine/mL 1-150 mL 1-150 mL, IntraVENous, IMG once PRN, contrast, Starting on Wed09/27/20 at 0920, For 1 dose, Refer to the [facility] policy and/or department guidance for instructions. , CT Given 09/27/2020 10:05 AM SALES OPERATIONS CONSULTANT 108 mLs metoprolol (LOPRESSOR) injection 5 mg 5 mg, IntraVENous, Every 5 min PRN, Other, heart rate for CTA scan, Starting on Wed09/27/20 at 0946, For 3 doses, If ordered every 5 minutes PRN give x 3 doses only. In emergent situations, may administer undiluted by rapid infusion over 1 minute. Given 09/27/2020 9:50 AM SALES OPERATIONS CONSULTANT 5 mg Given 09/27/2020 9:40 AM SALES OPERATIONS CONSULTANT 5 mg Given 09/27/2020 9:35 AM SALES OPERATIONS CONSULTANT 5 mg nitroglycerin (NITROSTAT) SL tablet 0.4 mg 0.4 mg, Sublingual, PRN, Chest pain, Starting on Wed09/27/20 at 0946, Give every 5 minutes as needed x 3 doses, then notify MD; HOLD for SBP < 100. DO NOT CRUSH tablets are made to disintegrate under the tongueIndications:see linked diagnosis Given 09/27/2020 9:50 AM SALES OPERATIONS CONSULTANT 0.4 m g sodium chloride flush 10 mL 10 mL, IntraVENous, Once, On Wed09/27/20 at 0945, For 1 dose, CT Given 09/27/2020 9:45 AM SALES OPERATIONS CONSULTANT 10 mLs sodium chloride flush 250 mL 250 mL, IntraVENous, Once, On Wed09/27/20 at 0945, For 1 dose, CT Given 09/27/2020 10:05 AM SALES OPERATIONS CONSULTANT 145 mLs documented in this encounter Additional Health Concerns Infection Onset Date Last Indicated Resolved Time COVID-19 Suspected 10/09/2020 10/12/2020 3:09 AM SALES OPERATIONS CONSULTANT Respiratory Suspected 09/05/2023 09/05/20232022 7:48 PM SALES OPERATIONS CONSULTANT Respiratory Suspected 09/22/2023 09/22/20232022 9:32 AM SALES OPERATIONS CONSULTANT Mycoplasma Pneumoniae Suspec scott Comment:Antibodies order placed at [facility]. 09/22/2023 09/22/2023 09/27/2023 12:14 PM SALES OPERATIONS CONSULTANT Respiratory Suspected 10/21/2023 10/21/20232023 1:16 PM SALES OPERATIONS CONSULTANT Assessment Noted Time PHQ-9 Depression Total Score: 6 08/16/20 18 11:25 AM CDT A fall risk assessment has been complete d for the patient 08/06/2020 10:09 AM CDT A Body Mass Index follow-up plan has been documented for the patient 03/25/2018 8:55 AM CDT documented as of this encounter Care Teams Nuclear Unit Operator Relationship Specialty Start Date End Date Kadeem Aguayo MD [address] [place] [address] PCP - General Family Medicine 08/24/19 08/26/23 Jose Manuel Garner MD [address] [facility] [address] [place] [address] Consulting Physician Neurology 08/16/18 Carlo Vela MD [address] [place], [place] [id number] Consulting Physician Pain Medicine 08/16/18 Aurora Becerra, ANGIE, CLOSET BUILDER [address] [facility] [address] [place], [place] [phone] Registered Nurse Family Medicine 03/25/20 documented as of this encounter
--- OUTSIDE RECORDS SUMMARY | 2025-01-28 19:46 | XMS_ITS ---
Author Name Interface, [id number] lity Address [place] [address] Organization [facility] Address [place] [address] Care Team Providers Care Wire Wheeler Name Role Phone DorindaMichell pintoe Unavailable Unavailable [...] Iron, TIBC, Ferr itin panel 06/24/2021 LABORDER Bystrom/lambda wit h K/L ratio, free, serum (mg/dL) 06/24/2021 LABORDER CBC 06/24/2021 LABORDER CMP 06/24/2021 LABORDER SPEP with immuno fixation 06/24/2021 LABORDER Vitamin B12 and Folate panel 12/24/2021 LABORDER SPEP with immuno fixation 12/24/2021 LABORDER Vitamin B12 and Folate panel 12/24/2021 LABORDER Iron, TIBC, Ferr itin panel 12/24/2021 LABORDER CMP 12/24/2021 LABORDER Iron, TIBC, Ferr itin panel 12/24/2021 LABORDER Bystrom/lambda wit h K/L ratio, free, serum (mg/dL) 12/24/2021 LABORDER CBC 06/24/2022 LABORDER CBC 06/24/2022 LABORDER SPEP with immuno fixation 06/24/2022 LABORDER Vitamin B12 and Folate panel 06/24/2022 LABORDER CMP 06/24/2022 LABORDER Iron, TIBC, Ferr itin panel 06/24/2022 LABORDER Bystrom/lambda wit h K/L ratio, free, serum (mg/dL) 12/30/2022 LABORDER Iron, TIBC, Ferr itin panel 12/30/2022 LABORDER Vitamin B12 and Folate panel 12/30/2022 LABORDER CMP 12/30/2022 LABORDER Bystrom/lambda wit h K/L ratio, free, serum (mg/dL) 12/30/2022 LABORDER CBC 12/30/2022 LABORDER SPEP with immuno fixation 04/08/2023 LABORDER Iron, TIBC, Ferr itin panel 04/08/2023 LABORDER CBC w/ auto diff 07/07/2023 LABORDER Iron, TIBC, Ferr itin panel 07/07/2023 LABORDER CMP 07/07/2023 LABORDER CBC w/ auto diff 07/07/2023 LABORDER Bystrom/lambda wit h K/L ratio, free, serum (mg/dL) [...] LABORDER SPEP with immuno fixation 04/26/2024 LABORDER Bystrom/lambda wit h K/L ratio, free, serum (mg/dL) 04/26/2024 LABORDER CBC w/auto diff with reflex 11/07/2024 LABORDER SPEP with immuno fixation 11/07/2024 LABORDER CBC w/auto diff with reflex 11/07/2024 LABORDER Bystrom/lambda wit h K/L ratio, free, serum (mg/dL) 11/07/2024 LABORDER CMP 11/07/2024 LABORDER Iron, TIBC, Ferr itin panel 05/16/2025 LABORDER CBC w/auto diff with reflex 05/16/2025 LABORDER SPEP with immuno fixation 05/16/2025 LABORDER CMP 05/16/2025 LABORDER Bystrom/lambda wit h K/L ratio, free, serum (mg/dL) [...] 252.0 15 FINAL Mary Palanisa my Serum [facility] . [address] [place] [address]. [id number]. [place] [address] CLIA#45D [id number] 06/24 TIBC and perce nt sat w/ iron panel Iron ug/dL 50.0 170.0 34.00 Low FINAL Mary Palanisa my Serum [facility] . [address] [place] [address]. [id number]. [place] [address] CLIA#45D [id number] 06/24 TIBC and perce nt sat w/ iron panel TIBC ug/dL 250.0 450.0 482.00 High FINAL Mary Palanisa my Serum [facility] . [address] [place] [address]. [id number]. [place] [address] CLIA#45D [id number] 06/24 TIBC and perce nt sat w/ iron panel Iron, % satur ation % 20.0 55.0 7.1 Low FINAL Mary Palanisa my Serum [facility] . [address] [place] [address]. [id number]. [place] [address] CLIA#45D [id number] 06/24 SPEP with immun ofixa tion Album in, SPE g/dL 3.1 5.5 3.7 FINAL Mary Palanisa my Serum [facility] [place] [address] 12[facility] [address] [facility] SPEP with immun ofixa tion Alpha -1 globu ashley g/dL 0.2 0.5 0.3 FINAL Mary Palanisa my Serum [facility] [place] [address] 12.[place] [address] 06/24 SPEP with immun ofixa tion Alpha -2 globu ashley g/dL 0.4 1.0 0.7 FINAL Mary Palanisa my Serum [facility] [place] [address] 12.[facility] [address] 06/24 SPEP with immun ofixa tion Beta globu ashley g/dL 0.5 1.1 0.9 FINAL Mary Palanisa my Serum [facility] [place] [address] 12.[place] [address] 06/24 SPEP with immun ofixa tion Gamma globu ashley g/dL 0.7 1.5 1.1 FINAL Mary Johnanisa my Serum [facility] [address] [address] [address] 12.[place] [address] 06/24 SPEP with immun ofixa tion Parap rotei n band, g/dL g/dL None FINAL Mary Johnanisa my Serum [facility] [address] [address] [place] 12[place] [address] 06/24 SPEP with immun ofixa tion Total prote in elect ropho resis g/dL 5.7 8.2 6.7 FINAL Mary Johnanisa my Serum [facility] [address] [address] [address] 12.[place] [address] 06/24 SPEP with immun ofixa tion SPE inter preta tion Results Below Normal serum total protein with normal electroph oretic pattern. FINAL Mary Johnanisa my Serum [facility] [address] [address] [address] 12.[place] [address] 06/24 SPEP with immun ofixa tion Immun ofixa tion, serum , inter preta tion Results Below No monoclona l peaks detected. FINAL Mary Chisa my Serum [facility] [address] [address] [address] 12.[place] [address] 06/24 Vitam in B12 panel Vitam in B12 pg/mL 211.0 911.0 571 FINAL Mary Johnanisa my Serum [facility] [address] [address] [place] [address] [address] 06/24 CMP Sodiu m mmol/L 136.0 145.0 143 FINAL Mary Johnanisa my Plasma [facility] . [address]. [id number]. [facility] [address] CLIA#45D [id number] 06/24 CMP Potas sium mmol/L 3.5 5.1 3.8 FINAL Mary Palanisa my Plasma [facility] . [address] [employer]. [id number]. [facility] [address] CLIA#45D [id number] 06/24 CMP Chlor loly mmol/L 97.0 107.0 106 FINAL Mary Palanisa my Plasma [facility] . [address] [place], [place] [address]. [id number]. [facility] [address] CLIA#45D [id number] 06/24 CMP CO2 mmol/L 21.0 32.0 27 FINAL Mary Palanisa my Plasma [facility] . [address] [place], [place] [address]. [id number]. [facility] [address] CLIA#45D [id number] 06/24 CMP Gluco se mg/dL 70.0 110.0 144 High FINAL Mary Palanisa my Plasma [facility] . [address] [place], [place] [address]. [id number]. [place] [address] CLIA#45D [id number] 06/24 CMP BUN mg/dL 7.0 18.0 18 FINAL Mary Palanisa my Plasma [facility] . [address] [place], [place] [address]. [id number]. [place] [address] CLIA#45D [id number] 06/24 CMP Creat inine , mg/dL mg/dL 0.55 1.3 1.41 High FINAL Mary Palanisa my Plasma [facility] . [address] [place], [place] [address] [facility]. [id number]. [place] [address] CLIA#45D [id number] 06/24 CMP GFR estim ate ml/min /1.73m 2 37 Low eFR based on CKD-EPI to estimate renal function. If multiply results by 1.159.60- 89 mL/min/1. 73m^2 without kidney damage may be normal.60 -89 mL/min/1. 73m^2 for 3 months or more, along with kidney damage, may indicate early kidney disease.I f , multiply result by 1.159. FINAL Mary Palanisa my Plasma [facility] . [address] [place], [place] [address]. [id number]. [place] [address] CLIA#45D [id number] 06/24 CMP BUN/C reati nine ratio Ratio 6.0 25.0 12.8 FINAL Mary Palanisa my Plasma [facility] . [address] [place], [place] [address]. [id number]. [place] [address] CLIA#45D [id number] 06/24 CMP Calci um mg/dL 8.5 10.1 8.7 FINAL Mary Palanisa my Plasma [facility] . [address] [place] [address]. [id number]. [place] [address] CLIA#45D [id number] 06/24 CMP Total prote in g/dL 6.4 8.2 6.8 FINAL Mary Palanisa my Plasma [facility] . [address] [place] [address]. [id number]. [place] [address] CLIA#45D [id number] 06/24 CMP Album in g/dL 3.4 5.0 3.2 Low FINAL Mary Palanisa my Plasma [facility] . [address] [place] [address]. [place] [address]. [place] [address] CLIA#45D [id number] 06/24 CMP A/G ratio Ratio 0.8 2.0 0.9 FINAL Mary Palanisa my Plasma [facility] . [address] [place] [address]. [id number]. [place] [address] CLIA#45D [id number] 06/24 CMP Bilir ubin, total mg/dL 0.1 1.0 0.5 FINAL Mary Palanisa my Plasma [facility] . [address] [place] [address]. [id number]. [place] [address] CLIA#45D [id number] 06/24 CMP Alkal ine phosp hatas e U/L 46.0 116.0 96 FINAL Mary Palanisa my Plasma [facility] . [address] [place] [address]. [id number]. [place] [address] CLIA#45D [id number] 06/24 CMP AST/S GOT U/L 15.0 37.0 16 FINAL Mary Palanisa my Plasma [facility] . [address] [place] [address]. [id number]. [place] [address] CLIA#45D [id number] 06/24 CMP ALT/S GPT U/L 14.0 59.0 18 FINAL Mary Palanisa my Plasma [facility] . [address] [place], [place] [address]y [facility]. [id number]. [place] [address] CLIA#45D [id number] 06/24 Bystrom /robbins da with K/L ratio , free, serum (mg/d L) [employer]strom [employer] , free, serum , mg/L mg/L 3.3 19.4 64.7 High FINAL Mary Palanisa my Serum [facility] [address] [address] [address] 12[place] [address] 06/24 Bystrom /robbins da with K/L ratio , free, serum (mg/d L) [employer]d [employer] , free, serum , mg/L mg/L 5.7 26.3 29.2 High FINAL Mary Palanisa my Serum [facility] [address] [address] [address] 12[place] [address] 06/24 Bystrom /robbins da with K/L ratio , free, serum (mg/d L) Bystrom /Robbins da light [employer] s, free w/ [...] Mary Palanisa my Serum [facility] [address] [address] [place] 12[place] [address] 06/24 CBC WBC 10^3/u l 4.8 10.8 4.4 Low FINAL Mary Palanisa my Whole Blood [facility] . [facility] [facility] [employer] [facility]. [id number]. [facility] [address] CLIA#45D [id number] 06/24 CBC RBC 10^6/u l 4.2 5.4 3.85 Low FINAL Mary Palanisa my Whole Blood [facility] . [address] [place] [address] [employer] [facility]. [id number]. [place] [address] CLIA#45D [id number] 06/24 CBC HGB g/dl 12.0 16.0 9.8 Low FINAL Mary Palanisa my Whole Blood [facility] . [address] [place] [address] [employer] [facility]. [id number]. [place] [address] CLIA#45D [id number] 06/24 CBC HCT % 37.0 47.0 32.6 Low FINAL Mary Palanisa my Whole Blood [facility] . [address] [place], [place] [address]Zyrra [facility]. [id number]. [place] [address] CLIA#45D [id number] 06/24 CBC MCV fl 81.0 99.0 84.7 FINAL Mary Palanisa my Whole Blood [facility] . [address] [place], [place] [address]Zyrra [facility]. [id number]. [place] [address] CLIA#45D [id number] 06/24 CBC MCH pg 27.0 31.0 25.5 Low FINAL Mary Palanisa my Whole Blood [facility] . [address] [place], [place] [address]Zyrra [facility]. [id number]. [place] [address] CLIA#45D [id number] 06/24 CBC MCHC g/dl 33.0 37.0 30.1 Low FINAL Mary Palanisa my Whole Blood [facility] . [address] [place] [address]. [id number]. [place] [address] CLIA#45D [id number] 06/24 CBC RDW % 10.5 14.5 14.6 High FINAL Mary Palanisa my Whole Blood [facility] . [address] [place] [address] [employer] [facility]. [id number]. [place] [address] CLIA#45D [id number] 06/24 CBC PLT 10^3/u l 130.0 400.0 299 FINAL Mary Palanisa my Whole Blood [facility] . [address] [place] [address] [employer] [facility]. [id number]. [place] [address] CLIA#45D [id number] 06/24 CBC MPV fl 9.4 12.3 11.1 FINAL Mary Palanisa my Whole Blood [facility] . [address] [place] [address]. [place] [address]. [place] [address] CLIA#45D [id number] 06/24 CBC Auto CBC comme nts See Manual Diff FINAL Mary Palanisa my Whole Blood [facility] . [address] [place] [address]. [id number]. [place] [address] CLIA#45D [id number] 06/24 Manua l diffe renti al Seg % % 40.0 77.0 41 FINAL Mary Palanisa my Whole Blood [facility] . [address] [place] [address]. [place] [address]. [place] [address] CLIA#45D [id number] 06/24 Manua l diffe renti al Lymph ocyte % % 15.0 41.0 33 FINAL Mary Palanisa my Whole Blood [facility] . [address] [place] [address]. [id number]. [place] [address] CLIA#45D [id number] 06/24 Manua l diffe renti al Monoc yte % % 3.0 11.0 8 FINAL Mary Palanisa my Whole Blood [facility] . [address] [place] [address]. [place] [address]. [place] [address] CLIA#45D [id number] 06/24 Manua l diffe renti al Eosin ophil % % 0.0 3.0 15 High FINAL Mary Palanisa my Whole Blood [facility] . [address] [place] [address]. [place] [address]. [place] [address] CLIA#45D [id number] 06/24 Manua l diffe renti al Basop hil % % 0.0 1.0 3 High FINAL Mary Palanisa my Whole Blood [facility] . [address] [place] [address]. [place] [address]. [place] [address] CLIA#45D [id number] 06/24 Manua l diffe renti al ANC (M) 10^3/U L 1.5 6.5 1.81 FINAL Mary Palanisa my Whole Blood [facility] . [address] [place] [address]. [id number]. [place] [address] CLIA#45D [id number] 06/24 Manua l diffe renti al LY# (M) 10^3/u L 1.2 3.4 1.46 FINAL Mary Palanisa my Whole Blood [facility] . [address] [place] [address]. [id number]. [place] [address] CLIA#45D [id number] 06/24 Manua l diffe renti al MO# (M) 10^3/U L 0.0 1.0 0.35 FINAL Mary Palanisa my Whole Blood [facility] . [address] [place] [address]. [id number]. [place] [address] CLIA#45D [id number] 06/24 Manua l diffe renti al EO# (M) 10^3/U L 0.0 0.3 0.66 High FINAL Mary Palanisa my Whole Blood [facility] . [address] [place] [address]. [id number]. [place] [address] CLIA#45D [id number] 06/24 Manua l diffe renti al Basop hil count (M) 10^3/U L 0.0 0.2 0.13 FINAL Mary Palanisa my Whole Blood [facility] . [address] [place] [address]. [id number]. [place] [address] CLIA#45D [id number] 06/24 Manua l diffe renti al Plate let estim ate 10^3 130.0 400.0 Agrees with Analyze r FINAL Mary Palanisa my Whole Blood [facility] . [address] [place] [address]. [id number]. [place] [address] CLIA#45D [id number] 06/24 Manua l diffe renti al RBC morph Normal FINAL Mary Palanisa my Whole Blood [facility] . [address] [place] [address]. [id number]. [place] [address] CLIA#45D [id number] 06/24 Folat e panel Folat e, serum ng/mL 7.6 FINAL Mary Palanisa Serum [facility]2 [address] [facility] [address] 12[place] [address] 12/24 TIBC and perce nt sat w/ iron panel Iron ug/dL 50.0 170.0 79.00 FINAL [facility] . [address] [place] [address]. [id number]. [place] [address] CLIA#45D [id number] 12/24 TIBC and perce nt sat w/ iron panel TIBC ug/dL 250.0 450.0 438.00 FINAL [facility] . [address] [place] [address]. [id number]. [place] [address] CLIA#45D [id number] 12/24 TIBC and perce nt sat w/ iron panel Iron, % satur ation % 20.0 55.0 18.0 Low FINAL [facility] . [address] [place] [address]. [id number]. [place] [address] CLIA#45D [id number] 12/24 Juliet tin panel Juliet tin ng/mL 8.0 252.0 29 FINAL [facility] Serum [facility] . [address] [place] [address]. [id number]. [place] [address] CLIA#45D [id number] 12/24 CBC WBC 10^3/u l 4.8 10.8 4.6 Low FINAL [facility] Whole Blood [facility] . [address] [place] [address]. [id number]. [place] [address] CLIA#45D [id number] 12/24 CBC RBC 10^6/u l 4.2 5.4 3.83 Low FINAL [facility] Whole Blood [facility] . [address] [place] [address]. [id number]. [place] [address] CLIA#45D [id number] 12/24 CBC HGB g/dl 12.0 16.0 11.3 Low FINAL [facility] Whole Blood [facility] . [address] [place] [address]. [id number]. [place] [address] CLIA#45D [id number] 12/24 CBC HCT % 37.0 47.0 35.3 Low FINAL Roxi Kelleywith Whole Blood [facility] . [address] [place], [place] [address]Zyrra [facility]. [id number]. [facility] [address] CLIA#45D [id number] 12/24 CBC MCV fl 81.0 99.0 92.2 FINAL Roxi Kelleywith Whole Blood [facility] . [address] [place] [address]. [id number]. [place] [address] CLIA#45D [id number] 12/24 CBC MCH pg 27.0 31.0 29.5 FINAL Roxi Kelelywith Whole Blood [facility] . [address] [place] [address]. [id number]. [place] [address] CLIA#45D [id number] 12/24 CBC MCHC g/dl 33.0 37.0 32.0 Low FINAL Roxi Kelleywith Whole Blood [facility] . [address] [place] [address]. [place] [address]. [place] [address] CLIA#45D [id number] 12/24 CBC RDW % 10.5 14.5 15.3 High FINAL Roxi Kelleywith Whole Blood [facility] . [address] [place] [address]. [place] [address]. [facility] [address] CLIA#45D [id number] 12/24 CBC PLT 10^3/u l 130.0 400.0 219 FINAL Roxi Kelleywith Whole Blood [facility] . [address] [place] [address]. [place] [address]. [facility] [address] CLIA#45D [id number] 12/24 CBC MPV fl 9.4 12.3 10.5 FINAL Roxi Kelleywith Whole Blood [facility] . [address] [place] [address]. [id number]. [place] [address] CLIA#45D [id number] 12/24 CBC Jordy % % 40.0 77.0 45.7 FINAL Roxi Dorinda Whole Blood [facility] . [address] [place] [address]. [place] [address]. [place] [address] CLIA#45D [id number] 12/24 CBC Jordy # (ANC) 10^3/u l 1.5 6.5 2.1 FINAL Roxi Dorinda Whole Blood [facility] . [address] [place] [address]. [id number]. [place] [address] CLIA#45D [id number] 12/24 CBC LY % % 15.0 41.0 34.5 FINAL Roxi Dorinda Whole Blood [facility] . [address] [place] [address]. [id number]. [place] [address] CLIA#45D [id number] 12/24 CBC LY # 10^3/u l 1.2 3.4 1.6 FINAL Roxi Dorinda Whole Blood [facility] . [address] [place] [address]. [place] [address]. [place] [address] CLIA#45D [id number] 12/24 CBC MO % % 3.0 11.0 12.0 High FINAL Roxi Dorinda Whole Blood [facility] . [address] [place] [address]. [place] [address]. [place] [address] CLIA#45D [id number] 12/24 CBC MO # 10^3/u l 0.0 1.0 0.6 FINAL Roxi Dorinda Whole Blood [facility] . [address] [place] [address]. [place] [address]. [place] [address] CLIA#45D [id number] 12/24 CBC EO % % 0.0 3.0 6.3 High FINAL Roxi Dorinda Whole Blood [facility] . [address] [place] [address]. [place] [address]. [place] [address] CLIA#45D [id number] 12/24 CBC EO # 10^3/u L 0.0 0.3 0.3 FINAL Roxi Dorinda Whole Blood [facility] . [address] [place] [address]. [place] [address]. [place] [address] CLIA#45D [id number] 12/24 CBC BA % % 0.0 1.0 1.3 High FINAL Roxi Dorinda Whole Blood [facility] . [address] [place] [address]. [place] [address]. [place] [address] CLIA#45D [id number] 12/24 CBC BA # 10^3/u L 0.0 0.2 0.1 FINAL Roxi Dorinda Whole Blood [facility] . [address] [place] [address]. [id number]. [facility] [address] CLIA#45D [id number] 12/24 CBC IG % % 0.0 0.5 0.20 FINAL Roxi Dorinda Whole Blood [facility] . [address] [place] [address]. [id number]. [facility] [address] CLIA#45D [id number] 12/24 CBC IG # 10^3/u L 0.0 0.03 0.01 FINAL Roxi Dorinda Whole Blood [facility] . [address] [place] [address]. [id number]. [facility] [address] CLIA#45D [id number] 12/24 CBC NRBC, % % 0.00 FINAL Roxi Dorinda Whole Blood [facility] . [address] [place] [address]. [id number]. [facility] [address] CLIA#45D [id number] 12/24 CBC NRBC, absol port lions, x 10^3/ uL 10^3/u L 0.000 FINAL Roxi Dorinda Whole Blood [facility] . [address] [place] [address]. [place] [address]. [facility] [address] CLIA#45D [id number] 12/24 Vitam in B12 panel Vitam in B12 pg/mL 200.0 1100.0 366 Please note: Although the reference range for Vitamin B12 is 200-1100 pg/mL,it has been reported that between 5-10% of patients with the values [id number] 0-400 pg/mL may experienc e neuropsyc hiatric and hematolog ic abnormali ties dueto occult B12 deficienc y, less than 1% of patients with values above 400 pg/mLwill have symptoms. FINAL Roxi Dorinda Serum [facility]2 [address] [facility] [address] 12[place] [address] 12/24 CMP Sodiu m mmol/L 136.0 145.0 141 FINAL Roxi Dorinda Plasma [facility] . [address] [place] [address]. [id number]. [facility] [address] CLIA#45D [id number] 12/24 CMP Potas sium mmol/L 3.5 5.1 3.7 FINAL Roxi Dorinda [facility] . [address] [place] [address]. [id number]. [facility] [address] CLIA#45D [id number] 12/24 CMP Chlor loly mmol/L 97.0 107.0 103 FINAL Roxi [facility] . [address] [place] [address]. [id number]. [facility] [address] CLIA#45D [id number] 12/24 CMP CO2 mmol/L 21.0 32.0 30 FINAL [facility] . [address] [place] [address]. [id number]. [place] [address] CLIA#45D [id number] 12/24 CMP Gluco se mg/dL 70.0 110.0 99 FINAL [facility] . [address] [place] [address]. [id number]. [place] [address] CLIA#45D [id number] 12/24 CMP BUN mg/dL 7.0 18.0 25 High FINAL [facility] . [address] [place] [address]. [id number]. [place] [address] CLIA#45D [id number] 12/24 CMP Creat inine , mg/dL mg/dL 0.55 1.3 1.53 High FINAL [facility] . [address] [place] [address]. [id number]. [place] [address] CLIA#45D [id number] 12/24 CMP GFR estim ate ml/min /1.73m 2 33 Low eFR based on CKD-EPI to estimate renal function. If multiply results by 1.159.60- 89 mL/min/1. 73m^2 without kidney damage may be normal.60 -89 mL/min/1. 73m^2 for 3 months or more, along with kidney damage, may indicate early kidney disease.I f , multiply result by 1.159. FINAL [facility] . [address] [place] [address]. [id number]. [place] [address] CLIA#45D [id number] 12/24 CMP BUN/C reati nine ratio Ratio 6.0 25.0 16.3 FINAL [facility] . [address] [place] [address]. [id number]. [place] [address] CLIA#45D [id number] 12/24 CMP Calci um mg/dL 8.5 10.1 9.0 FINAL [facility] . [address] [place] [address]. [id number]. [place] [address] CLIA#45D [id number] 12/24 CMP Total prote in g/dL 6.4 8.2 7.2 FINAL [facility] . [address] [place] [address]. [place] [address]. [place] [address] CLIA#45D [id number] 12/24 CMP Album in g/dL 3.4 5.0 3.4 FINAL [facility] . [address] [place] [address]. [place] [address]. [place] [address] CLIA#45D [id number] 12/24 CMP A/G ratio Ratio 0.8 2.0 0.9 FINAL [facility] . [address] [place] [address]. [place] [address]. [place] [address] CLIA#45D [id number] 12/24 CMP Bilir ubin, total mg/dL 0.1 1.0 0.7 FINAL [facility] . [address] [place] [address]. [place] [address]. [place] [address] CLIA#45D [id number] 12/24 CMP Alkal ine phosp hatas e U/L 46.0 116.0 92 FINAL [facility] . [address] [place] [address]. [id number]. [place] [address] CLIA#45D [id number] 12/24 CMP AST/S GOT U/L 15.0 37.0 20 FINAL [facility] . [address] [place] [address]. [place] [address] CLIA#45D [id number] 12/24 CMP ALT/S GPT U/L 14.0 59.0 20 FINAL [facility] . [address] [facility]. [id number]. [facility] [address] CLIA#45D [id number] 12/24 Folat e panel Folat e, serum ng/mL 7.2 (Note)Ref erence ranges for adults: Low <3.4 ng/mL Borderlin e 3.4 - 5.4 ng/mL Normal >5.4 ng/mL FINAL Roxi Dorinda [facility] [place] [address] [address].[place] [address] 12/24 SPEP with immun ofixa tion Album in, SPE g/dL 3.1 5.5 3.7 FINAL Roxi Dorinda [facility] [place] [address] [address].[place] [address] 12/24 SPEP with immun ofixa tion Alpha -1 globu ashley g/dL 0.2 0.5 0.3 FINAL Roxi Dorinda [facility].2 22 [place] [address] [place] 12[place] [address] 12/24 SPEP with immun ofixa tion Alpha -2 globu ashley g/dL 0.4 1.0 0.7 FINAL Roxi Dorinda [facility] [place] [address] [place] 12[place] [address] 12/24 SPEP with immun ofixa tion Beta globu ashley g/dL 0.5 1.1 0.9 FINAL Roxi Dor[facility] [place] [address] [place] 12[place] [address] 12/24 SPEP with immun ofixa tion Gamma globu ashley g/dL 0.7 1.5 1.0 FINAL Roxi [facility] [place] [address] [place] 12[place] [address] 12/24 SPEP with immun ofixa tion Parap rotei n band, g/dL g/dL None FINAL Roxi [facility] [place] [address] [place] 12[place] [address] 12/24 SPEP with immun ofixa tion Total prote in elect ropho resis g/dL 5.7 8.2 6.5 FINAL Roxi Dor[facility] [place] [address] [place] 12[place] [address] 12/24 SPEP with immun ofixa tion SPE inter preta tion Results Below Normal serum total protein with normal electroph oretic pattern. FINAL Roxi [facility].2 [address] [address] [place] 12[place] [address] 12/24 SPEP with immun ofixa tion Immun ofixa tion, serum , inter preta tion Results Below No monoclona l peaks detected. FINAL Roxi [facility].2 [address] [address] [place] 12[place] [address] 12/24 Bystrom /robbins da with K/L ratio , free, serum (mg/d L) Bystrom light chain , free mg/L 3.3 19.4 52.7 High FINAL Roxi [facility].2 [address] [address] [place] 12[place] [address] 12/24 Bystrom /robbins da with K/L ratio , free, serum (mg/d L) Lambd a light chain , free mg/L 5.7 26.3 29.0 High FINAL Roxi [facility]2 [address] [address] [place] 12[place] [address] 12/24 Bystrom /robbins da with K/L ratio , free, [...] [facility]2 [address] [address] [place] 12[place] [address] 12/30 Echoc ardio gram See mosaic tiler d 02/17 Mammo graph y See mosaic tiler d 02/17 X-ray See mosaic tiler d 06/24 TIBC and perce nt sat w/ iron panel Iron mcg/dL 45.0 160.0 55 FINAL Mary Palanisa my [facility].2 [address] [address] [place] 12[place] [address] 06/24 TIBC and perce nt sat w/ iron panel TIBC mcg/dL 250.0 450.0 373 FINAL Mary Palanisa my [facility].2 [address] [address] [place] 12[place] [address] 06/24 TIBC and perce nt sat w/ iron panel Iron, % satur ation % 16.0 45.0 15 Low FINAL Mary Palanisa my [facility].2 [address] [address] [place] 12[place] [address] 06/24 CBC w/ auto diff WBC 10^3/u l 4.8 10.8 4.2 Low FINAL Mary Palanisa my Whole Blood [facility] . [address] [place] [address] [employer] [facility]. [place] [address]. [place] [address] CLIA#45D [id number] 06/24 CBC w/ auto diff RBC 10^6/u l 4.2 5.4 3.76 Low FINAL Mary Palanisa my Whole Blood [facility] . [address] [place] [address] [employer] [facility]. [place] [address]. [facility] [address] CLIA#45D [id number] 06/24 CBC w/ auto diff HGB g/dl 12.0 16.0 11.0 Low FINAL Mary Palanisa my Whole Blood [facility] . [address] [place] [address] [employer] [facility]. [id number]. [facility] [address] CLIA#45D [id number] 06/24 CBC w/ auto diff HCT % 37.0 47.0 34.9 Low FINAL Mary Palanisa my Whole Blood [facility] . [address] [place] [address] [employer] [facility]. [id number]. [place] [address] CLIA#45D [id number] 06/24 CBC w/ auto diff MCV fl 81.0 99.0 92.8 FINAL Mary Palanisa my Whole Blood [facility] . [address] [place] [address] [employer] [facility]. [id number]. [place] [address] CLIA#45D [id number] 06/24 CBC w/ auto diff MCH pg 27.0 31.0 29.3 FINAL Mary Palanisa my Whole Blood [facility] . [address] [place] [address] [employer] [facility]. [id number]. [place] [address] CLIA#45D [id number] 06/24 CBC w/ auto diff MCHC g/dl 33.0 37.0 31.5 Low FINAL Mary Palanisa my Whole Blood [facility] . [address] [place] [address] [employer] [facility]. [id number]. [place] [address] CLIA#45D [id number] 06/24 CBC w/ auto diff RDW % 10.5 14.5 13.7 FINAL Mary Palanisa my Whole Blood [facility] . [address] [place], [place] [address] [facility]. [id number]. [place] [address] CLIA#45D [id number] 06/24 CBC w/ auto diff PLT 10^3/u l 130.0 400.0 224 FINAL Mary Palanisa my Whole Blood [facility] . [address] [place], [place] [address] [facility]. [id number]. [place] [address] CLIA#45D [id number] 06/24 CBC w/ auto diff MPV fl 9.4 12.3 10.7 FINAL Mary Palanisa my Whole Blood [facility] . [address] [place] [address] [employer] [facility]. [id number]. [place] [address] CLIA#45D [id number] 06/24 CBC w/ auto diff NRBC, % % 0.00 FINAL Mary Palanisa my Whole Blood [facility] . [address] [place], [place] [address]Studio [employer] [facility]. [id number]. [address] [address] CLIA#45D [id number] 06/24 CBC w/ auto diff NRBC, absol port lions, x 10^3/ uL 10^3/u L 0.000 FINAL Mary Palanisa my Whole Blood [facility] . [address] [place], [place] [address]. [id number]. [facility] [address] CLIA#45D [id number] 06/24 CBC w/ auto diff Auto CBC comme nts See Manual Diff FINAL Mary rodrigues Whole Blood [facility] . [address]. [id number]. [facility] [address] CLIA#45D [id number] 06/24 Bystrom /robbins da with K/L ratio , free, serum (mg/d L) Bystrom light chain , free mg/L 3.3 19.4 67.4 High FINAL Mary Chisa lilia [facility].[address] [place] [address] [place] 12[place] [address] 06/24 Bystrom /robbins da with K/L ratio , free, serum (mg/d L) Lambd a light chain , free mg/L 5.7 26.3 33.3 High FINAL Mary Johnanisa lilia [facility].[address] [place] [address] [place] [address] [address] 06/24 Bystrom /robbins da with K/L ratio , free, [...] FINAL Mary Johnanisa lilia [facility].[address] [place] [address] [place] 12[place] [address] 06/24 CMP Gluco se mg/dL 65.0 139.0 102 FINAL Mary Johnanisa lilia [facility].[address] [place] [address] 12[place] [address] 06/24 CMP BUN mg/dL 7.0 25.0 24 FINAL Mary Palanisa my [facility] [place] [address] [place] 12[place] [address] 06/24 CMP Creat inine mg/dL 0.6 1.0 1.44 High FINAL Mary Palanisa my [facility] [place] [address] [place] 12[place] [address] 06/24 CMP GFR estim ate mL/min /1.73m 2 38 Low FINAL Mary Palanisa my [facility] [place] [address] [place] 12[place] [address] 06/24 CMP BUN/C reati nine ratio 6.0 22.0 17 FINAL Mary Palanisa my [facility] [place] [address] [place] 12[place] [address] 06/24 CMP Sodiu m mmol/L 135.0 146.0 143 FINAL Mary Palanisa my [facility] [place] [address] [place] 12[place] [address] 06/24 CMP Potas sium mmol/L 3.5 5.3 5.1 FINAL Mary Palanisa my [facility] [place] [address] [place] 12[place] [address] 06/24 CMP Chlor loly mmol/L 98.0 110.0 105 FINAL Mary Palanisa my [facility] [place] [address] [place] 12[place] [address] 06/24 CMP CO2 mmol/L 20.0 32.0 29 FINAL Mary Palanisa my [facility] [place] [address] [place] 12[place] [address] 06/24 CMP Anion gap, mmol/ L mmol/L 7.0 17.0 14 FINAL Mary Palanisa my [facility] [place] [address] [place] 12[place] [address] 06/24 CMP Calci um mg/dL 8.6 10.4 9.4 FINAL Mary Palanisa my [facility] [place] [address] [place] 12[place] [address] 06/24 CMP Total prote in g/dL 6.1 8.1 6.4 FINAL Mary Palanisa my [facility].2 [address] [address] [place] 12[place] [address] 06/24 CMP Album in g/dL 3.6 5.1 3.7 FINAL Mary Palanisa my [facility]2 [address] [address] [place] 12[place] [address] 06/24 CMP Globu ashley g/dL 1.9 3.7 2.7 FINAL Mary Palanisa my [facility] [place] [address] [place] 12[place] [address] 06/24 CMP A/G ratio 1.0 2.5 1.4 FINAL Mary Palanisa my [facility].[address] [place] [address] [place] 12[place] [address] 06/24 CMP Bilir ubin, total mg/dL 0.2 1.2 0.5 FINAL Mary Palanisa my [facility].[address] [place] [address] [place] 12[place] [address] 06/24 CMP Alkal ine phosp hatas e U/L 37.0 153.0 92 FINAL Mary Palanisa my [facility] [place] [address] [place] 12[place] [address] 06/24 CMP AST/S GOT U/L 10.0 35.0 14 FINAL Mary Palanisa my [facility] [place] [address] [place] 12[place] [address] 06/24 CMP ALT/S GPT U/L 6.0 29.0 8 FINAL Mary Palanisa my [facility] [place] [address] [place] 12[place] [address] 06/24 Félix aragon al Seg % % 40.0 77.0 42 FINAL Mary Palanisa my Whole Blood [facility] . [address] [place] [address] Drive. [id number]. [address] [id number] CLIA#45D [id number] 06/24 Félix aragon al Lymph ocyte % % 15.0 41.0 38 FINAL Mary Palanisa my Whole Blood [facility] . [address] [place] [address]. [id number]. [address] [address] CLIA#45D [id number] 06/24 Manua l diffe renti al Monoc yte % % 3.0 11.0 11 FINAL Mary Palanisa my Whole Blood [facility] . [address] [place] [address]. [id number]. [address] [address] CLIA#45D [id number] 06/24 Manua l diffe renti al Eosin ophil % % 0.0 3.0 6 High FINAL Mary Palanisa my Whole Blood [facility] . [address] [place] [address]. [id number]. [address] [place] [address] CLIA#45D [id number] 06/24 Manua l diffe renti al Basop hil % % 0.0 1.0 3 High FINAL Mary Palanisa my Whole Blood [facility] . [address] [place] [address]. [id number]. [address] [address] CLIA#45D [id number] 06/24 Manua l diffe renti al ANC (M) 10^3/U L 1.5 6.5 1.74 FINAL Mary Palanisa my Whole Blood [facility] . [address] [place] [address]. [id number]. [address] [address] CLIA#45D [id number] 06/24 Manua l diffe renti al LY# (M) 10^3/u L 1.2 3.4 1.58 FINAL Mary Palanisa my Whole Blood [facility] . [address] [place] [address]. [id number]. [address] [address] CLIA#45D [id number] 06/24 Manua l diffe renti al MO# (M) 10^3/U L 0.0 1.0 0.46 FINAL Mary Palanisa my Whole Blood [facility] . [address] [place] [address]. [id number]. [address] [address] CLIA#45D [id number] 06/24 Manua l diffe renti al EO# (M) 10^3/U L 0.0 0.3 0.25 FINAL Mary Palanisa my Whole Blood [facility] . [address] [place] [address]. [id number]. [address] [place] [address] CLIA#45D [id number] 06/24 Manua jen diffe renti al Basop hil count (M) 10^3/U L 0.0 0.2 0.12 FINAL Mary Palanisa my Whole Blood [facility] . [address] [place] [address]. [id number]. [address] [place] [address] CLIA#45D [id number] 06/24 Manua l diffe renti al Plate let estim ate 10^3 130.0 400.0 Agrees with Analyze r FINAL Mary Palanisa my Whole Blood [facility] . [address] [place] [address]. [id number]. [address] [address] CLIA#45D [id number] 06/24 Eliana jen castilloe renti al RBC morph Normal FINAL Mary Palanisa my Whole Blood [facility] . [address] [place] [address]. [id number]. [address] [place] [address] CLIA#45D [id number] 06/24 Vitam in B12 panel Vitam in B12 pg/mL 200.0 1100.0 446 FINAL Mary Palanisa my [facility].[address] [place] [address] 12[facility] [address] [facility] Folat e panel Folat e, serum ng/mL 4.7 (Note)Ref erence ranges for adults: Low <3.4 ng/mL Borderlin e 3.4 - 5.4 ng/mL Normal >5.4 ng/mL FINAL Mary Palanisa my [facility].[address] [place] [address] Building 12.Jonathan [facility] [address] 06/24 Juliet tin panel Juliet tin ng/mL 16.0 288.0 39 FINAL Mary Palanisa my [facility].[address] [place] [address] Building 12.Jonathan [facility] [address] 06/24 SPEP with immun ofixa tion Album in, SPE g/dL 3.1 5.5 3.6 FINAL Mary Palanisa my [facility].[address] [place] [address] [place] 12[place] [address] 06/24 SPEP with immun ofixa tion Alpha -1 globu ashley g/dL 0.2 0.5 0.3 FINAL Mary Palanisa my [facility].[address] [place] [address] [place] 12[place] [address] 06/24 SPEP with immun ofixa tion Alpha -2 globu ashley g/dL 0.4 1.0 0.7 FINAL Mary Palanisa my [facility].[address] [place] [address] [place] 12[place] [address] 06/24 SPEP with immun ofixa tion Beta globu ashley g/dL 0.5 1.1 0.8 FINAL Mary Palanisa my [facility].[address] [place] [address] [place] [address] [address] 06/24 SPEP with immun ofixa tion Gamma globu ashley g/dL 0.7 1.5 1.0 FINAL Mary Palanisa my [facility].[address] [place] [address] [place] 12[place] [address] 06/24 SPEP with immun ofixa tion Parap rotei n band, g/dL g/dL None FINAL Mary Palanisa my [facility].[address] [place] [address] [place] [address] [address] 06/24 SPEP with immun ofixa tion Total prote in elect ropho resis g/dL 5.7 8.2 6.5 FINAL Mary Palanisa my [facility].[address] [place] [address] [place] 12[place] [address] 06/24 SPEP with immun ofixa tion SPE inter preta tion Results Below Abnormal appearing globulin peak, possibly monoclona l. If indicated , recommend immunotyp ing (Test Code: IES) for further evaluatio n. If the SPEP was orderedwi reflex, immunotyp ing will be resulted upon completio n. FINAL Mary Palanisa my [facility].[address] [place] [address] [place] 12[place] [address] 06/24 SPEP with immun ofixa tion Immun ofixa tion, serum , inter preta tion Results Below No monoclona l peaks detected. FINAL Mary Palanisa my [facility].2 [address] [address] [place] 12[place] [address] 12/30 CBC w/ auto diff WBC 10^3/u l 4.8 10.8 4.9 FINAL Mary Palanisa my Whole Blood [facility] . [address] [place], [place] [address]OOTU. [id number]. [address] [address] CLIA#45D [id number] 12/30 CBC w/ auto diff RBC 10^6/u l 4.2 5.4 3.66 Low FINAL Mary Palanisa my Whole Blood [facility] . [address] [place], [place] [address] [facility]. [id number]. [place] [address] CLIA#45D [id number] 12/30 CBC w/ auto diff HGB g/dl 12.0 16.0 10.6 Low FINAL Mary Palanisa my Whole Blood [facility] . [address] [place], [place] [address] [facility]. [id number]. [place] [address] CLIA#45D [id number] 12/30 CBC w/ auto diff HCT % 37.0 47.0 33.8 Low FINAL Mary Palanisa my Whole Blood [facility] . [address] [place], [place] [address] [facility]. [id number]. [place] [address] CLIA#45D [id number] 12/30 CBC w/ auto diff MCV fl 81.0 99.0 92.3 FINAL Mary Palanisa my Whole Blood [facility] . [address] [place], [place] [address] [facility]. [id number]. [place] [address] CLIA#45D [id number] 12/30 CBC w/ auto diff MCH pg 27.0 31.0 29.0 FINAL Mary Palanisa my Whole Blood [facility] . [address] [place], [place] [address]O[employer]U. [id number]. [address] [address] CLIA#45D [id number] 12/30 CBC w/ auto diff MCHC g/dl 33.0 37.0 31.4 Low FINAL Mary Palanisa my Whole Blood [facility] . [address] [place], [place] [address]O[employer]. [id number]. [address] [address] CLIA#45D [id number] 12/30 CBC w/ auto diff RDW % 10.5 14.5 14.3 FINAL Mary Palanisa my Whole Blood [facility] . [address] [place], [place] [address] [facility]. [id number]. [place] [address] CLIA#45D [id number] 12/30 CBC w/ auto diff PLT 10^3/u l 130.0 400.0 294 FINAL Mary Palanisa my Whole Blood [facility] . [address] [place], [place] [address]. [id number]. [place] [address] CLIA#45D [id number] 12/30 CBC w/ auto diff MPV fl 9.4 12.3 10.1 FINAL Mary Palanisa my Whole Blood [facility] . [address] [place], [place] [address]. [id number]. [place] [address] CLIA#45D [id number] 12/30 CBC w/ auto diff Jordy % % 40.0 77.0 43.4 FINAL Mary Palanisa my Whole Blood [facility] . [address] [place], [place] [address]Z[facility]. [id number]. [place] [address] CLIA#45D [id number] 12/30 CBC w/ auto diff Jordy # (ANC) 10^3/u l 1.5 6.5 2.1 FINAL Mary Palanisa my Whole Blood [facility] . [address] [place], [place] [address]Z[facility]. [id number]. [place] [address] CLIA#45D [id number] 12/30 CBC w/ auto diff LY % % 15.0 41.0 31.7 FINAL Mary Palanisa my Whole Blood [facility] . [address] [place] [address] [employer] [facility]. [id number]. [place] [address] CLIA#45D [id number] 12/30 CBC w/ auto diff LY # 10^3/u l 1.2 3.4 1.5 FINAL Mary Palanisa my Whole Blood [facility] . [address] [place] [address] [employer] [facility]. [id number]. [place] [address] CLIA#45D [id number] 12/30 CBC w/ auto diff MO % % 3.0 11.0 13.6 High FINAL Mary Palanisa my Whole Blood [facility] . [address] [place], [place] [address]. [id number]. [place] [address] CLIA#45D [id number] 12/30 CBC w/ auto diff MO # 10^3/u l 0.0 1.0 0.7 FINAL Mary Palanisa my Whole Blood [facility] . [address] [place] [address]. [id number]. [place] [address] CLIA#45D [id number] 12/30 CBC w/ auto diff EO % % 0.0 3.0 9.3 High FINAL Mary Palanisa my Whole Blood [facility] . [address] [place] [address]. [id number]. [place] [address] CLIA#45D [id number] 12/30 CBC w/ auto diff EO # 10^3/u L 0.0 0.3 0.5 High FINAL Mary Palanisa my Whole Blood [facility] . [address] [place] [address]. [id number]. [place] [address] CLIA#45D [id number] 12/30 CBC w/ auto diff BA % % 0.0 1.0 1.4 High FINAL Mary Palanisa my Whole Blood [facility] . [address] [place] [address]. [id number]. [place] [address] CLIA#45D [id number] 12/30 CBC w/ auto diff BA # 10^3/u L 0.0 0.2 0.1 FINAL Mary Palanisa my Whole Blood [facility] . [address] [place], [place] [address]. [id number]. [place] [address] CLIA#45D [id number] 12/30 CBC w/ auto diff IG % % 0.0 0.5 0.60 High FINAL Mary Palanisa my Whole Blood [facility] . [address] [place] [address] [employer] [facility]. [id number]. [place] [address] CLIA#45D [id number] 12/30 CBC w/ auto diff IG # 10^3/u L 0.0 0.03 0.03 FINAL Mary Palanisa my Whole Blood [facility] . [address] [place], [place] [address]. [id number]. [place] [address] CLIA#45D [id number] 12/30 CBC w/ auto diff NRBC, % % 0.00 FINAL Mary Palanisa my Whole Blood [facility] . [address] [place] [address]. [id number]. [place] [address] CLIA#45D [id number] 12/30 CBC w/ auto diff NRBC, absol port lions, x 10^3/ uL 10^3/u L 0.000 FINAL Mary Palanisa my Whole Blood [facility] . [address] [place] [address]. [id number]. [place] [address] CLIA#45D [id number] 12/30 CMP Sodiu m mmol/L 136.0 145.0 138 FINAL Mary Palanisa my Plasma [facility] . [address] [place] [address]. [id number]. [place] [address] CLIA#45D [id number] 12/30 CMP Potas sium mmol/L 3.5 5.1 3.8 FINAL Mary Palanisa my Plasma [facility] . [address] [place] [address]. [id number]. [place] [address] CLIA#45D [id number] 12/30 CMP Chlor loly mmol/L 97.0 107.0 101 FINAL Mary Palanisa my Plasma [facility] . [address] [place] [address]. [id number]. [place] [address] CLIA#45D [id number] 12/30 CMP CO2 mmol/L 21.0 32.0 30 FINAL Mary Palanisa my Plasma [facility] . [address] [place] [address] [employer] [facility]. [id number]. [place] [address] CLIA#45D [id number] 12/30 CMP Gluco se mg/dL 70.0 110.0 107 FINAL Mary Palanisa my Plasma [facility] . [address] [place] [address] [employer] [facility]. [id number]. [place] [address] CLIA#45D [id number] 12/30 CMP BUN mg/dL 7.0 18.0 23 High FINAL Mary Palanisa my Plasma [facility] . [address] [place] [address]. [id number]. [facility] [address] CLIA#45D [id number] 12/30 CMP Creat inine , mg/dL mg/dL 0.55 1.3 1.56 High FINAL Mary Palanisa my Plasma [facility] . [address] [place] [address]. [id number]. [facility] [address] CLIA#45D [id number] 12/30 CMP GFR estim ate ml/min /1.73m 2 32 Low eFR based on CKD-EPI to estimate renal function. If multiply results by 1.159.60- 89 mL/min/1. 73m^2 without kidney damage may be normal.60 -89 mL/min/1. 73m^2 for 3 months or more, along with kidney damage, may indicate early kidney disease.I f , multiply result by 1.159. FINAL Mary Palanisa my Plasma [facility] . [address] [place] [address]. [id number]. [place] [address] CLIA#45D [id number] 12/30 CMP BUN/C reati nine ratio Ratio 6.0 25.0 14.7 FINAL Mary Palanisa my Plasma [facility] . [address] [place] [address]. [id number]. [facility] [address] CLIA#45D [id number] 12/30 CMP Calci um mg/dL 8.5 10.1 8.7 FINAL Mary Palanisa my Plasma [facility] . [address] [place], [place] [address]Z[facility]. [id number]. [facility] [address] CLIA#45D [id number] 12/30 CMP Total prote in g/dL 6.4 8.2 7.1 FINAL Mary Palanisa my Plasma [facility] . [address] [place] [address]. [id number]. [facility] [address] CLIA#45D [id number] 12/30 CMP Album in g/dL 3.4 5.0 2.9 Low FINAL Mary Palanisa my Plasma [facility] . [address] [place] [address]. [id number]. [place] [address] CLIA#45D [id number] 12/30 CMP A/G ratio Ratio 0.8 2.0 0.7 Low FINAL Mary Palanisa my Plasma [facility] . [address] [place] [address]. [id number]. [place] [address] CLIA#45D [id number] 12/30 CMP Bilir ubin, total mg/dL 0.1 1.0 0.6 FINAL Mary Palanisa my Plasma [facility] . [address] [place] [address]. [id number]. [place] [address] CLIA#45D [id number] 12/30 CMP Alkal ine phosp hatas e U/L 46.0 116.0 99 FINAL Mary Palanisa my Plasma [facility] . [address] [place] [address]. [id number]. [place] [address] CLIA#45D [id number] 12/30 CMP AST/S GOT U/L 15.0 37.0 18 FINAL Mary Palanisa my Plasma [facility] . [address] [place] [address]. [id number]. [place] [address] CLIA#45D [id number] 12/30 CMP ALT/S GPT U/L 14.0 59.0 21 FINAL Mary Palanisa my Plasma [facility] . [address] [place] [address]. [id number]. [place] [address] CLIA#45D [id number] 12/30 TIBC and perce nt sat w/ iron panel Iron ug/dL 50.0 170.0 43.00 Low FINAL Mary Palanisa my Serum [facility] . [address] [place] [address]. [id number]. [place] [address] CLIA#45D [id number] 12/30 TIBC and perce nt sat w/ iron panel TIBC ug/dL 250.0 450.0 442.00 FINAL Mary Palanisa my Serum [facility] . [address] [place] [address]. [id number]. [place] [address] CLIA#[id number] 12/30 TIBC and perce nt sat w/ iron panel Iron, % satur ation % 20.0 55.0 9.7 Low FINAL Mary Palanisa my Serum [facility] . [address] [place] [address]. [id number]. [place] [address] CLIA#[id number] 12/30 Juliet tin panel Juliet tin ng/mL 8.0 252.0 59 FINAL Mary Palanisa my Serum [facility] . [address] [place] [address]. [id number]. [place] [id number] CLIA#45D [id number] 12/30 Folat e panel Folat e, serum ng/mL 3.3 (Note)Ref erence ranges for adults: Low <3.4 ng/mL Borderlin e 3.4 - 5.4 ng/mL Normal >5.4 ng/mL FINAL Mary Palanisa my Serum [facility] [address] [address] [place] 12[place] [address] 12/30 SPEP with immun ofixa tion Album in, SPE g/dL 3.1 5.5 3.4 FINAL Mary Palanisa my Serum [facility] [address] [address] [place] 12[place] [address] 12/30 SPEP with immun ofixa tion Alpha -1 globu ash[place] g/dL 0.2 0.5 0.4 FINAL Mary Palanisa my Serum [facility] [address] [address] [place] 12[place] [address] 12/30 SPEP with immun ofixa tion Alpha -2 globu ash[place] g/dL 0.4 1.0 0.8 FINAL Mary Palanisa my Serum [facility] [address] [address] [place] 12[place] [address] 12/30 SPEP with immun ofixa tion Beta globu [place] g/dL 0.5 1.1 1.0 FINAL Mary Palanisa my Serum [facility] [address] [address] [address] 12[place] [address] 12/30 SPEP with immun ofixa tion Gamma globu ash[place] g/dL 0.7 1.5 1.0 FINAL Mary Palanisa my Serum [facility] [place] [address] [address] 12[place] [address] 12/30 SPEP with immun ofixa tion Parap rotei n band, g/dL g/dL None FINAL Mary rodrigues Serum [facility] [place] [address] [address] 12[place] [address] 12/30 SPEP with immun ofixa tion Total prote in elect ropho resis g/dL 5.7 8.2 6.6 FINAL Mary rodrigues Serum [facility] [place] [address] 12.[place] [address] 12/30 SPEP with immun ofixa tion SPE inter preta tion Results Below Abnormal appearing globulin peak, possibly monoclona l. If indicated , recommend immunotyp ing (Test Code: IES) for further evaluatio n. If the SPEP was orderedwi th reflex, immunotyp ing will be resulted upon completio n. FINAL Mary rodrigues Serum [facility] [place] [address] 12.[place] [address] 12/30 SPEP with immun ofixa tion Immun ofixa tion, serum , inter preta tion Results Below No monoclona l peaks detected. FINAL Mary rodrigues Serum [facility] [place] [address] [address] 12[place] [address] 12/30 Bystrom /robbins da with K/L ratio , free, serum (mg/d L) Bystrom light chain , free mg/L 3.3 19.4 70.1 High FINAL Mary rodrigues Serum [facility] [place] [address] [address] 12[place] [address] 12/30 Bystrom /robbins da with K/L ratio , free, serum (mg/d L) Lambd a light chain , free mg/L 5.7 26.3 37.4 High FINAL Mary rodrigues Serum [facility] [place] [address] 12[place] [address] 12/30 Bystrom /robbins da with K/L ratio , free, [...] Mary Palanisa my Serum [facility]2 [address] [address] [address] 12.[facility] [address] 12/30 Vitam in B12 panel Vitam in B12 pg/mL 200.0 1100.0 481 FINAL Mary Palanisa my Serum [facility] 12.[facility] [address] 04/08 CBC w/aut o diff with refle x WBC 10^3/u l 4.8 10.8 5.9 FINAL Mary Palanisa my Whole Blood [facility] . [address] [place] [address]. [place] [address]. [place] [address] CLIA#45D [id number] 04/08 CBC w/aut o diff with refle x RBC 10^6/u l 4.2 5.4 3.90 Low FINAL Mary Palanisa my Whole Blood [facility] . [address] [place] [address]. [id number]. [facility] [address] CLIA#45D [id number] 04/08 CBC w/aut o diff with refle x HGB g/dl 12.0 16.0 12.0 FINAL Mary Palanisa my Whole Blood [facility] . [address] [place] [address]. [id number]. [facility] [address] CLIA#45D [id number] 04/08 CBC w/aut o diff with refle x HCT % 37.0 47.0 38.2 FINAL Mary Palanisa my Whole Blood [facility] . [address] [place] [address]. [id number]. [place] [address] CLIA#45D [id number] 04/08 CBC w/aut o diff with refle x MCV fl 81.0 99.0 97.9 FINAL Mary Palanisa my Whole Blood [facility] . [address] [place] [address]. [id number]. [place] [address] CLIA#45D [id number] 04/08 CBC w/aut o diff with refle x MCH pg 27.0 31.0 30.8 FINAL Mary Palanisa my Whole Blood [facility] . [address] [place] [address]. [id number]. [place] [address] CLIA#45D [id number] 04/08 CBC w/aut o diff with refle x MCHC g/dl 33.0 37.0 31.4 Low FINAL Mary Palanisa my Whole Blood [facility] . [address] [place] [address]. [id number]. [place] [address] CLIA#45D [id number] 04/08 CBC w/aut o diff with refle x RDW % 10.5 14.5 15.8 High FINAL Mary Palanisa my Whole Blood [facility] . [address] [place] [address]. [id number]. [place] [address] CLIA#45D [id number] 04/08 CBC w/aut o diff with refle x PLT 10^3/u l 130.0 400.0 234 FINAL Mary Palanisa my Whole Blood [facility] . [address] [place] [address]. [id number]. [place] [address] CLIA#45D [id number] 04/08 CBC w/aut o diff with refle x MPV fl 9.4 12.3 10.4 FINAL Mary Palanisa my Whole Blood [facility] . [address] [place] [address]. [id number]. [place] [address] CLIA#45D [id number] 04/08 CBC w/aut o diff with refle x Jordy % % 40.0 77.0 60.9 FINAL Mary Palanisa my Whole Blood [facility] . [address] [place] [address]. [id number]. [place] [address] CLIA#45D [id number] 04/08 CBC w/aut o diff with refle x Jordy # (ANC) 10^3/u l 1.5 6.5 3.6 FINAL Mary Palanisa my Whole Blood [facility] . [address] [place] [address]. [id number]. [place] [address] CLIA#45D [id number] 04/08 CBC w/aut o diff with refle x LY % % 15.0 41.0 24.4 FINAL Mary Palanisa my Whole Blood [facility] . [address] [place] [address]. [id number]. [place] [address] CLIA#45D [id number] 04/08 CBC w/aut o diff with refle x LY # 10^3/u l 1.2 3.4 1.4 FINAL Mary Palanisa my Whole Blood [facility] . [address] [place] [address]. [id number]. [place] [address] CLIA#45D [id number] 04/08 CBC w/aut o diff with refle x MO % % 3.0 11.0 9.4 FINAL Mary Palanisa my Whole Blood [facility] . [address] [place] [address]. [id number]. [place] [address] CLIA#45D [id number] 04/08 CBC w/aut o diff with refle x MO # 10^3/u l 0.0 1.0 0.6 FINAL Mary Palanisa my Whole Blood [facility] . [address] [place] [address]. [id number]. [place] [address] CLIA#45D [id number] 04/08 CBC w/aut o diff with refle x EO % % 0.0 3.0 2.6 FINAL Mary Palanisa my Whole Blood [facility] . [address] [place] [address]. [id number]. [place] [address] CLIA#45D [id number] 04/08 CBC w/aut o diff with refle x EO # 10^3/u L 0.0 0.3 0.2 FINAL Mray Palanisa my Whole Blood [facility] . [address] [place] [address]. [id number]. [place] [address] CLIA#45D [id number] 04/08 CBC w/aut o diff with refle x BA % % 0.0 1.0 1.5 High FINAL Mary Palanisa my Whole Blood [facility] . [address] [place] [address]. [id number]. [place] [address] CLIA#45D [id number] 04/08 CBC w/aut o diff with refle x BA # 10^3/u L 0.0 0.2 0.1 FINAL Mary Palanisa my Whole Blood [facility] . [address] [place] [address]. [id number]. [place] [address] CLIA#45D [id number] 04/08 CBC w/aut o diff with refle x IG % % 0.0 0.5 1.20 High FINAL Mary Palanisa my Whole Blood [facility] . [address] [place] [address]. [id number]. [place] [address] CLIA#45D [id number] 04/08 CBC w/aut o diff with refle x IG # 10^3/u L 0.0 0.03 0.07 High FINAL Mary Palanisa my Whole Blood [facility] . [address] [place] [address]. [id number]. [place] [address] CLIA#45D [id number] 04/08 CBC w/aut o diff with refle x NRBC, % % 0.00 FINAL Mary Palanisa my Whole Blood [facility] . [address] [place] [address]. [id number]. [place] [address] CLIA#45D [id number] 04/08 CBC w/aut o diff with refle x NRBC, absol port lions, x 10^3/ uL 10^3/u L 0.000 FINAL Mary Palanisa my Whole Blood [facility] . [address] [place] [address]. [id number]. [place] [address] CLIA#45D [id number] 04/08 Juliet tin panel Juliet tin ng/mL 8.0 252.0 460 High FINAL Mary Palanisa my Serum [facility] . [address] [place] [address]. [id number]. [place] [address] CLIA#45D [id number] 04/08 TIBC and perce nt sat w/ iron panel Iron ug/dL 50.0 170.0 87.00 FINAL Mary Palanisa my Serum [facility] . [address] [place] [address]. [id number]. [place] [address] CLIA#45D [id number] 04/08 TIBC and perce nt sat w/ iron panel TIBC ug/dL 250.0 450.0 347.00 FINAL Mary Palanisa my Serum [facility] . [address] [place] [address]. [id number]. [facility] [address] CLIA#45D [id number] 04/08 TIBC and perce nt sat w/ iron panel Iron, % satur ation % 20.0 55.0 25.1 FINAL Mary Palanisa my Serum [facility] . [address] [place] [address]. [id number]. [place] [address]000071 CLIA#45D [id number] 07/07 Bystrom /robbins da with K/L ratio , free, serum (mg/d L) Bystrom light chain , free mg/L 3.3 19.4 45.9 High FINAL Mary Palanisa Serum [facility]2 [address] [address] [address] 12.[facility] [address] 07/07 Bystrom /robbins da with K/L ratio , free, serum (mg/d L) Lambd a light chain , free mg/L 5.7 26.3 26.5 High FINAL Mary Palanisa my Serum [facility]2 [address] [address] [address] 12.[facility] [address] 07/07 Bystrom /robbins da with K/L ratio , free, [...] Mary Palanisa my Serum [facility]2 [address] [address] [place] 12[place] [address] 07/07 CBC w/aut o diff with refle x WBC 10^3/u l 4.8 10.8 5.5 FINAL Mary Palanisa my Whole Blood [facility] . [address] [place], [place] [address]. [id number]. [place] [address] CLIA#45D [id number] 07/07 CBC w/aut o diff with refle x RBC 10^6/u l 4.2 5.4 3.76 Low FINAL Mary Palanisa my Whole Blood [facility] . [address] [place], [place] [address]. [id number]. [place] [address] CLIA#45D [id number] 07/07 CBC w/aut o diff with refle x HGB g/dl 12.0 16.0 11.3 Low FINAL Mary Palanisa my Whole Blood [facility] . [address] [place], [place] [email or web address] [facility]. [id number]. [facility] [address] CLIA#45D [id number] 07/07 CBC w/aut o diff with refle x HCT % 37.0 47.0 35.5 Low FINAL Mary Palanisa my Whole Blood [facility] . [address] [place], [place] [address]. [id number]. [place] [address] CLIA#45D [id number] 07/07 CBC w/aut o diff with refle x MCV fl 81.0 99.0 94.4 FINAL Mary Palanisa my Whole Blood [facility] . [facility] [employer]. [id number]. [place] [address] CLIA#45D [id number] 07/07 CBC w/aut o diff with refle x MCH pg 27.0 31.0 30.1 FINAL Mary Palanisa my Whole Blood [facility] . [address] [place] [address]. [id number]. [place] [address] CLIA#45D [id number] 07/07 CBC w/aut o diff with refle x MCHC g/dl 33.0 37.0 31.8 Low FINAL Mary Palanisa my Whole Blood [facility] . [address] [place] [address]. [id number]. [place] [address] CLIA#45D [id number] 07/07 CBC w/aut o diff with refle x RDW % 10.5 14.5 13.2 FINAL Mary Palanisa my Whole Blood [facility] . [address] [place] [address]. [id number]. [place] [address] CLIA#45D [id number] 07/07 CBC w/aut o diff with refle x PLT 10^3/u l 130.0 400.0 277 FINAL Mary Palanisa my Whole Blood [facility] . [address] [place] [address]. [id number]. [place] [address] CLIA#45D [id number] 07/07 CBC w/aut o diff with refle x MPV fl 9.4 12.3 10.3 FINAL Mary Palanisa my Whole Blood [facility] . [address] [place] [address]. [id number]. [place] [address] CLIA#45D [id number] 07/07 CBC w/aut o diff with refle x Jordy % % 40.0 77.0 44.9 FINAL Mary Palanisa my Whole Blood [facility] . [address] [place] [address]. [id number]. [place] [address] CLIA#45D [id number] 07/07 CBC w/aut o diff with refle x Jordy # (ANC) 10^3/u l 1.5 6.5 2.5 FINAL Mary Palanisa my Whole Blood [facility] . [address] [place] [address]. [id number]. [place] [address] CLIA#45D [id number] 07/07 CBC w/aut o diff with refle x LY % % 15.0 41.0 29.0 FINAL Mary Palanisa my Whole Blood [facility] . [address] [place] [address]. [id number]. [place] [address] CLIA#45D [id number] 07/07 CBC w/aut o diff with refle x LY # 10^3/u l 1.2 3.4 1.6 FINAL Mary Palanisa my Whole Blood [facility] . [address] [place] [address]. [id number]. [place] [address] CLIA#45D [id number] 07/07 CBC w/aut o diff with refle x MO % % 3.0 11.0 11.6 High FINAL Mary Palanisa my Whole Blood [facility] . [address] [place] [address]. [id number]. [place] [address] CLIA#45D [id number] 07/07 CBC w/aut o diff with refle x MO # 10^3/u l 0.0 1.0 0.6 FINAL Mary Palanisa my Whole Blood [facility] . [address] [place] [address]. [id number]. [place] [address] CLIA#45D [id number] 07/07 CBC w/aut o diff with refle x EO % % 0.0 3.0 12.5 High FINAL Mary Palanisa my Whole Blood [facility] . [address] [place] [address]. [id number]. [place] [address] CLIA#45D [id number] 07/07 CBC w/aut o diff with refle x EO # 10^3/u L 0.0 0.3 0.7 High FINAL Mary Palanisa my Whole Blood [facility] . [address] [place] [address]. [id number]. [place] [address] CLIA#45D [id number] 07/07 CBC w/aut o diff with refle x BA % % 0.0 1.0 0.9 FINAL Mary Palanisa my Whole Blood [facility] . [address] [place], [place] [address] [facility]. [id number]. [place] [address] CLIA#45D [id number] 07/07 CBC w/aut o diff with refle x BA # 10^3/u L 0.0 0.2 0.1 FINAL Mary Palanisa my Whole Blood [facility] . [address] [place] [address]. [id number]. [place] [address] CLIA#45D [id number] 07/07 CBC w/aut o diff with refle x IG % % 0.0 0.5 1.10 High FINAL Mary Palanisa my Whole Blood [facility] . [address] [place], [place] [address]Z[facility]. [id number]. [place] [address] CLIA#45D [id number] 07/07 CBC w/aut o diff with refle x IG # 10^3/u L 0.0 0.03 0.06 High FINAL Mary Palanisa my Whole Blood [facility] . [address] [place], [place] [address]Z[facility]. [id number]. [place] [address] CLIA#45D [id number] 07/07 CBC w/aut o diff with refle x NRBC, % % 0.0 0.2 0.0 FINAL Mary Palanisa my Whole Blood [facility] . [address] [place] [address]. [id number]. [place] [address] CLIA#45D [id number] 07/07 CBC w/aut o diff with refle x NRBC, absol port lions, x 10^3/ uL 10^3/u L 0.0 0.012 0.000 FINAL Mary Palanisa my Whole Blood [facility] . [address] [place], [place] [address]Z[facility]. [id number]. [place] [address] CLIA#45D [id number] 07/07 TIBC and perce nt sat w/ iron panel Iron ug/dL 50.0 170.0 75.00 FINAL Mary Palanisa my Serum [facility] . [address] [place], [place] [address]Z[facility]. [id number]. [place] [address] CLIA#45D [id number] 07/07 TIBC and perce nt sat w/ iron panel TIBC ug/dL 250.0 450.0 272.00 FINAL Mary Palanisa my Serum [facility] . [address] [place] [address]. [id number]. [facility] [address] CLIA#45D [id number] 07/07 TIBC and perce nt sat w/ iron panel Iron, % satur ation % 20.0 55.0 27.6 FINAL Mary Palanisa my Serum [facility] . [address] [place] [address]. [id number]. [place] [address] CLIA#45D [id number] 07/07 Juliet tin panel Juliet tin ng/mL 8.0 252.0 738 High FINAL Mary Palanisa my Serum [facility] . [address] [place] [address]. [id number]. [place] [address] CLIA#45D [id number] 07/07 SPEP with immun ofixa tion Album in, SPE g/dL 3.1 5.5 3.2 FINAL Mary Palanisa my Serum [facility] [place] [address] [address] 12[place] [address] 07/07 SPEP with immun ofixa tion Alpha -1 globu ash[place] g/dL 0.2 0.5 0.5 FINAL Mary Palanisa my Serum [facility] [place] [address] [place] 12[place] [address] 07/07 SPEP with immun ofixa tion Alpha -2 globu ash[place] g/dL 0.4 1.0 0.8 FINAL Mary Palanisa my Serum [facility] [place] [address] [address] 12[place] [address] 07/07 SPEP with immun ofixa tion Beta globu ash[place] g/dL 0.5 1.1 0.7 FINAL Mary Palanisa my Serum [facility] [place] [address] [address] 12[place] [address] 07/07 SPEP with immun ofixa tion Gamma globu ash[place] g/dL 0.7 1.5 0.9 FINAL Mary Palanisa my Serum [facility] [place] [address] [place] 12[place] [address] 07/07 SPEP with immun ofixa tion Parap rotei n band, g/dL g/dL None FINAL Mary Chisa my Serum [facility]2 [address] [address] [place] [address] [address] 07/07 SPEP with immun ofixa tion Total prote in elect ropho resis g/dL 5.7 8.2 6.1 FINAL Mary Johnanisa my Serum [facility]2 [address] [address] [place] [address] 07/07 SPEP with immun ofixa tion SPE inter preta tion Results Below Normal serum total protein with normal electroph oretic pattern. FINAL Mary Chisa my Serum [facility]2 [address] [address] [place] [address] [address] 07/07 SPEP with immun ofixa tion Immun ofixa tion, serum , inter preta tion Results Below No monoclona l peaks detected. FINAL Mary Johnanisa my Serum [facility]2 [address] [address] [place] [address] [address] 07/07 CMP Sodiu m mmol/L 136.0 145.0 137 FINAL Mary Johnanisa my Plasma [facility] . [address] [place] [address]. [place] [address]. [place] [address] CLIA#45D [id number] 07/07 CMP Potas sium mmol/L 3.5 5.1 4.1 FINAL Mary Palanisa my Plasma [facility] . [address] [place] [address]. [id number]. [place] [address] CLIA#45D [id number] 07/07 CMP Chlor loly mmol/L 97.0 107.0 101 FINAL Mary Palanisa my Plasma [facility] . [address] [place] [address] [employer] [facility]. [id number]. [place] [address] CLIA#45D [id number] 07/07 CMP CO2 mmol/L 21.0 32.0 32 FINAL Mary Palanisa my Plasma [facility] . [address] [place] [address]. [id number]. [place] [address] CLIA#45D [id number] 07/07 CMP Gluco se mg/dL 74.0 106.0 115 High FINAL Mary Palanisa my Plasma [facility] . [address] [place] [address]. [id number]. [place] [address] CLIA#45D [id number] 07/07 CMP BUN mg/dL 7.0 18.0 21 High FINAL Mary Palanisa my Plasma [facility] . [address] [place] [address]. [id number]. [place] [address] CLIA#45D [id number] 07/07 CMP Creat inine , mg/dL mg/dL 0.55 1.3 1.50 High FINAL Mary Palanisa my Plasma [facility] . [address] [place] [address]. [id number]. [place] [address] CLIA#45D [id number] 07/07 CMP GFR estim ate ml/min /1.73m 2 36 Low Result based on the eGFR 2020 calculati on.60-89 mL/min/1. 73m^2 without kidney damage may be normal.60 -89 mL/min/1. 73m^2 for 3 months or more, along with kidney damage, may indicate early kidney disease.C alculatio n modified to the 2020 formula effective 01/16/23. FINAL Mary Palanisa my Plasma [facility] . [address] [place] [address]. [id number]. [place] [address] CLIA#45D [id number] 07/07 CMP BUN/C reati nine ratio Ratio 6.0 25.0 14.0 FINAL Mary Palanisa my Plasma [facility] . [address] [place] [address]. [id number]. [place] [address] CLIA#45D [id number] 07/07 CMP Calci um mg/dL 8.5 10.1 9.6 FINAL Mary Palanisa my Plasma [facility] . [address] [place] [address]. [id number]. [place] [address] CLIA#45D [id number] 07/07 CMP Total prote in g/dL 6.4 8.2 6.5 FINAL Mary Palanisa my Plasma [facility] . [address] [place] [address] [employer] [facility]. [id number]. [place] [address] CLIA#45D [id number] 07/07 CMP Album in g/dL 3.4 5.0 2.9 Low FINAL Mary Palanisa my Plasma [facility] . [address] [place], [place] [address]. [id number]. [place] [address] CLIA#45D [id number] 07/07 CMP A/G ratio Ratio 0.8 2.0 0.8 FINAL Mary Palanisa my Plasma [facility] . [address] [place], [place] [address]. [id number]. [place] [address] CLIA#45D [id number] 07/07 CMP Bilir ubin, total mg/dL 0.2 1.0 0.5 FINAL Mary Palanisa my Plasma [facility] . [address] [place], [place] [address]. [id number]. [place] [address] CLIA#45D [id number] 07/07 CMP Alkal ine phosp hatas e U/L 46.0 116.0 83 FINAL Mary Palanisa my Plasma [facility] . [address] [place], [place] [address] [facility]. [id number]. [place] [address] CLIA#45D [id number] 07/07 CMP AST/S GOT U/L 15.0 37.0 22 FINAL Mary Palanisa my Plasma [facility] . [address] [place], [place] [address] [facility]. [id number]. [place] [address] CLIA#45D [id number] 07/07 CMP ALT/S GPT U/L 14.0 59.0 24 FINAL Mary Palanisa my Plasma [facility] . [address] [place] [address] [employer] [facility]. [id number]. [place] [address] CLIA#45D [id number] 10/27 CMP Sodiu m mmol/L 136.0 145.0 140 FINAL Mary Palanisa my Plasma [facility] . [address] [place] [address] [employer] [facility]. [id number]. [place] [address] CLIA#45D [id number] 10/27 CMP Potas sium mmol/L 3.5 5.1 4.7 FINAL Mary Palanisa my Plasma [facility] . [address] [place] [address] [employer] [facility]. [id number]. [place] [address] CLIA#45D [id number] 10/27 CMP Chlor loly mmol/L 97.0 107.0 103 FINAL Mary Palanisa my Plasma [facility] . [address] [place] [address] [employer] [facility]. [id number]. [place] [address] CLIA#45D [id number] 10/27 CMP CO2 mmol/L 21.0 32.0 25 FINAL Mary Palanisa my Plasma [facility] . [address] [place] [address] [employer] [facility]. [id number]. [place] [address] CLIA#45D [id number] 10/27 CMP Gluco se mg/dL 74.0 106.0 88 FINAL Mary Palanisa my Plasma [facility] . [address] [place] [address] [employer] [facility]. [id number]. [place] [address] CLIA#45D [id number] 10/27 CMP BUN mg/dL 7.0 18.0 26 High FINAL Mary Palanisa my Plasma [facility] . [address] [place] [address] [employer] [facility]. [id number]. [place] [address] CLIA#45D [id number] 10/27 CMP Creat inine , mg/dL mg/dL 0.55 1.3 1.08 FINAL Mary Johnanisa my Plasma [facility] . [address] [place] [address] [facility]. [id number]. [place] [address] CLIA#45D [id number] 10/27 CMP GFR estim ate ml/min /1.73m 2 53 Low Result based on the eGFR 2020 calculati on.60-89 mL/min/1. 73m^2 without kidney damage may be normal.60 -89 mL/min/1. 73m^2 for 3 months or more, along with kidney damage, may indicate early kidney disease.C alculatio n modified to the 2020 formula effective 01/16/23. FINAL Mary Palanisa my Plasma [facility] . [address] [place] [address] [employer] [facility]. [id number]. [place] [address] CLIA#[id number] 10/27 CMP BUN/C reati nine ratio Ratio 6.0 25.0 24.1 FINAL Mary Palanisa my Plasma [facility] . [address] [place] [address]. [id number]. [place] [address] CLIA#45D [id number] 10/27 CMP Calci um mg/dL 8.5 10.1 8.8 FINAL Mary Palanisa my Plasma [facility] . [address] [place] [address]. [id number]. [place] [address] CLIA#45D [id number] 10/27 CMP Total prote in g/dL 6.4 8.2 6.8 FINAL Mary Palanisa my Plasma [facility] . [address] [place] [address]. [id number]. [place] [address] CLIA#45D [id number] 10/27 CMP Album in g/dL 3.4 5.0 2.7 Low FINAL Mary Palanisa my Plasma [facility] . [address] [place] [address]. [id number]. [place] [address] CLIA#45D [id number] 10/27 CMP A/G ratio Ratio 0.8 2.0 0.7 Low FINAL Mary Palanisa my Plasma [facility] . [address] [place] [address]. [id number]. [place] [address] CLIA#45D [id number] 10/27 CMP Bilir ubin, total mg/dL 0.2 1.0 0.3 FINAL Mary Palanisa my Plasma [facility] . [address] [place] [address]. [id number]. [place] [address] CLIA#45D [id number] 10/27 CMP Alkal ine phosp hatas e U/L 46.0 116.0 89 FINAL Mary Palanisa my Plasma [facility] . [address] [place] [address]. [id number]. [place] [address] CLIA#45D [id number] 10/27 CMP AST/S GOT U/L 15.0 37.0 18 FINAL Mary Palanisa my Plasma [facility] . [address] [place] [address]. [id number]. [place] [address] CLIA#45D [id number] 10/27 CMP ALT/S GPT U/L 14.0 59.0 19 FINAL Mary Palanisa my Plasma [facility] . [address] [place] [address]. [id number]. [place] [address] CLIA#45D [id number] 10/27 CBC w/aut o diff with refle x WBC 10^3/u l 4.8 10.8 9.7 FINAL Mary Palanisa my Whole Blood [facility] . [address] [place] [address]. [id number]. [place] [address] CLIA#45D [id number] 10/27 CBC w/aut o diff with refle x RBC 10^6/u l 4.2 5.4 3.48 Low FINAL Mary Palanisa my Whole Blood [facility] . [address] [place] [address]. [id number]. [place] [address] CLIA#45D [id number] 10/27 CBC w/aut o diff with refle x HGB g/dl 12.0 16.0 10.0 Low FINAL Mary Palanisa my Whole Blood [facility] . [address] [place] [address]. [id number]. [place] [address] CLIA#45D [id number] 10/27 CBC w/aut o diff with refle x HCT % 37.0 47.0 32.4 Low FINAL Mary Palanisa my Whole Blood [facility] . [address] [place] [address]. [id number]. [place] [address] CLIA#45D [id number] 10/27 CBC w/aut o diff with refle x MCV fl 81.0 99.0 93.1 FINAL Mary Palanisa my Whole Blood [facility] . [address] [place] [address]. [id number]. [place] [address] CLIA#45D [id number] 10/27 CBC w/aut o diff with refle x MCH pg 27.0 31.0 28.7 FINAL Mary Palanisa my Whole Blood [facility] . [address] [place] [address]. [id number]. [place] [address] CLIA#45D [id number] 10/27 CBC w/aut o diff with refle x MCHC g/dl 33.0 37.0 30.9 Low FINAL Mary Palanisa my Whole Blood [facility] . [address] [place] [address]. [id number]. [place] [address] CLIA#45D [id number] 10/27 CBC w/aut o diff with refle x RDW % 10.5 14.5 15.3 High FINAL Mary Palanisa my Whole Blood [facility] . [address] [place] [address]. [id number]. [place] [address] CLIA#45D [id number] 10/27 CBC w/aut o diff with refle x PLT 10^3/u l 130.0 400.0 446 High FINAL Mary Palanisa my Whole Blood [facility] . [address] [place] [address]. [id number]. [place] [address] CLIA#45D [id number] 10/27 CBC w/aut o diff with refle x MPV fl 9.4 12.3 10.2 FINAL Mary Palanisa my Whole Blood [facility] . [address] [place] [address]. [id number]. [place] [address] CLIA#45D [id number] 10/27 CBC w/aut o diff with refle x Jordy % % 40.0 77.0 64.4 FINAL Mary Palanisa my Whole Blood [facility] . [address] [place] [address]. [id number]. [place] [address] CLIA#45D [id number] 10/27 CBC w/aut o diff with refle x Jordy # (ANC) 10^3/u l 1.5 6.5 6.2 FINAL Mary Palanisa my Whole Blood [facility] . [address] [place] [address]. [id number]. [place] [address] CLIA#45D [id number] 10/27 CBC w/aut o diff with refle x LY % % 15.0 41.0 14.6 Low FINAL Mary Palanisa my Whole Blood [facility] . [address] [place] [address]. [id number]. [place] [address] CLIA#45D [id number] 10/27 CBC w/aut o diff with refle x LY # 10^3/u l 1.2 3.4 1.4 FINAL Mary Palanisa my Whole Blood [facility] . [address] [place] [address]. [id number]. [place] [address] CLIA#45D [id number] 10/27 CBC w/aut o diff with refle x MO % % 3.0 11.0 10.7 FINAL Mary Palanisa my Whole Blood [facility] . [address] [place] [address]. [id number]. [place] [address] CLIA#45D [id number] 10/27 CBC w/aut o diff with refle x MO # 10^3/u l 0.0 1.0 1.0 FINAL Mary Palanisa my Whole Blood [facility] . [address] [place] [address]. [id number]. [place] [address] CLIA#45D [id number] 10/27 CBC w/aut o diff with refle x EO % % 0.0 3.0 7.1 High FINAL Mary Palanisa my Whole Blood [facility] . [address] [place] [address]. [id number]. [place] [address] CLIA#45D [id number] 10/27 CBC w/aut o diff with refle x EO # 10^3/u L 0.0 0.3 0.7 High FINAL Mary Palanisa my Whole Blood [facility] . [address] [place] [address]. [id number]. [place] [address] CLIA#45D [id number] 10/27 CBC w/aut o diff with refle x BA % % 0.0 1.0 1.1 High FINAL Mary Palanisa my Whole Blood [facility] . [address] [place] [address]. [id number]. [place] [address] CLIA#45D [id number] 10/27 CBC w/aut o diff with refle x BA # 10^3/u L 0.0 0.2 0.1 FINAL Mary Palanisa my Whole Blood [facility] . [address] [place] [address]. [id number]. [place] [address] CLIA#45D [id number] 10/27 CBC w/aut o diff with refle x IG % % 0.0 0.5 2.10 High FINAL Mary Palanisa my Whole Blood [facility] . [address] [place] [address]. [id number]. [place] [address] CLIA#45D [id number] 10/27 CBC w/aut o diff with refle x IG # 10^3/u L 0.0 0.03 0.20 High FINAL Mary Palanisa my Whole Blood [facility] . [address] [place] [address]. [id number]. [place] [address] CLIA#45D [id number] 10/27 CBC w/aut o diff with refle x NRBC, % % 0.0 0.2 0.0 FINAL Mary Palanisa my Whole Blood [facility] . [address] [place] [address]. [id number]. [place] [address] CLIA#45D [id number] 10/27 CBC w/aut o diff with refle x NRBC, absol port lions, x 10^3/ uL 10^3/u L 0.0 0.012 0.000 FINAL Mary Palanisa my Whole Blood [facility] . [address] [place] [address]. [id number]. [place] [address] CLIA#45D [id number] 10/27 Juliet tin panel Juliet tin ng/mL 8.0 252.0 953 High FINAL Mary Palanisa my Serum [facility] . [address] [place] [address]. [id number]. [place] [address] CLIA#45D [id number] 10/27 TIBC and perce nt sat w/ iron panel Iron ug/dL 50.0 170.0 24.00 Low FINAL Mary Palanisa my Serum [facility] . [address] [place] [address]. [id number]. [place] [address] CLIA#45D [id number] 10/27 TIBC and perce nt sat w/ iron panel TIBC ug/dL 250.0 450.0 202.00 Low FINAL Mary Palanisa my Serum [facility] . [address] [facility]. [id number]. [place] [address] CLIA#45D [id number] 10/27 TIBC and perce nt sat w/ iron panel Iron, % satur ation % 20.0 55.0 11.9 Low FINAL Mary Palanisa my Serum [facility] . [address] [facility]. [id number]. [place] [address] CLIA#45D [id number] 04/26 CMP Sodiu m mmol/L 136.0 145.0 140 FINAL Mary Palanisa my Plasma [facility].[address] [facility] [address] [place] [address] CLIA#45D [id number] 04/26 CMP Potas sium mmol/L 3.5 5.1 4.9 FINAL Mray Palanisa my Plasma [facility].[address] [facility] [address] [place] [address] CLIA#45D [id number] 04/26 CMP Chlor loly mmol/L 97.0 107.0 104 FINAL Mary Palanisa my Plasma [facility].[address] [facility] [address] [place] [address] CLIA#45D [id number] 04/26 CMP CO2 mmol/L 21.0 32.0 26.0 FINAL Mary Palanisa my Plasma [facility].[address] [facility] [address] [place] [address] CLIA#45D [id number] 04/26 CMP Gluco se mg/dL 74.0 106.0 120 High FINAL Mary Palanisa my Plasma [facility].[address] [facility] [address] [place] [address] CLIA#45D [id number] 04/26 CMP BUN mg/dL 7.0 18.0 37 High FINAL Mary Palanisa my Plasma [facility].[address] [facility] [address] [place] [address] CLIA#45D [id number] 04/26 CMP Creat inine , mg/dL mg/dL 0.55 1.3 1.42 High FINAL Mary Palanisa my Plasma [facility].[address] [facility] [address] [place] [address] CLIA#45D [id number] 04/26 CMP GFR estim ate mil/mi n/1.73 m2 38 Low Result based on the eGFR 2020 calculati on.60-89 mL/min/1. 73m^2 without kidney damage may be normal.60 -89 mL/min/1. 73m^2 for 3 months or more, along with kidney damage, may indicate early kidney disease.C alculatio n modified to the 2020 formula effective 01/16/23. FINAL Mary Palanisa my Plasma [facility].[address] [facility] [address] [place] [address] CLIA#45D [id number] 04/26 CMP BUN/C reati nine ratio 6.0 25.0 26.1 High FINAL Mary Palanisa my Plasma [facility].[address] [facility] [address] [place] [address] CLIA#45D [id number] 04/26 CMP Album in g/dL 3.4 5.0 3.2 Low FINAL Mary Palanisa my Plasma [facility].[address] [facility] [address] [place] [address] CLIA#45D [id number] 04/26 CMP Calci um mg/dL 8.5 10.1 9.1 FINAL Mary Palanisa my Plasma [facility] [address] [place] [address] CLIA#45D [id number] 04/26 CMP Total prote in g/dL 6.4 8.2 7.8 FINAL Mary Palanisa my Plasma [facility].[address] [facility] [address] [place] [address] CLIA#45D [id number] 04/26 CMP Globu ashley g/dL 2.2 4.2 4.6 High FINAL Mary Palanisa my Plasma [facility].[address] [facility] [address] [place] [address] CLIA#45D [id number] 04/26 CMP A/G ratio 0.8 2.0 0.7 Low FINAL Mary Palanisa my Plasma [facility].[address] [facility] [address] [place] [address] CLIA#45D [id number] 04/26 CMP Bilir ubin, total mg/dL 0.2 1.0 0.5 FINAL Mary Palanisa my Plasma [facility].[address] [facility] [address] [place] [address] CLIA#45D [id number] 04/26 CMP Alkal ine phosp hatas e U/L 46.0 116.0 93 FINAL Mary Palanisa my Plasma [facility].[address] [facility] [address] [place] [address] CLIA#45D [id number] 04/26 CMP AST/S GOT U/L 15.0 37.0 17 FINAL Mary Palanisa my Plasma [facility].[address] [facility] [address] [place] [address] CLIA#45D [id number] 04/26 CMP ALT/S GPT U/L 14.0 59.0 26 FINAL Mary Palanisa my Plasma [facility].[address] [facility] [address] [place] [address] CLIA#45D [id number] 04/26 SPEP with immun ofixa tion Total prote in g/dL 6.1 8.1 7.1 FINAL Mary Palanisa my Serum [facility] [place] [address] [address] [address] 04/26 SPEP with immun ofixa tion NOHEMI inter preta tion Results Below Normal pattern. No monoclona l proteins detected. FINAL Mary Palanisa my Serum [facility] [place] [address] 12.[place] [address] 04/26 SPEP with immun ofixa tion Album in, SPE g/dL 3.8 4.8 3.6 Low FINAL Mary Palanisa my Serum [facility] [place] [address] 12.[place] [address] 04/26 SPEP with immun ofixa tion Alpha -1 globu ashley g/dL 0.2 0.3 0.3 FINAL Mary Palanisa my Serum [facility] [place] [address] [address] [address] 04/26 SPEP with immun ofixa tion Alpha -2 globu ashley g/dL 0.5 0.9 0.8 FINAL Mary Palanisa my Serum [facility] [place] [address] 12.[place] [address] 04/26 SPEP with immun ofixa tion Beta- 1 g/dL 0.4 0.6 0.5 FINAL Mary Palanisa my Serum [facility] [place] [address] 12.[place] [address] 04/26 SPEP with immun ofixa tion Beta- 2 g/dL 0.2 0.5 0.4 FINAL Mary Palanisa my Serum [facility] [place] [address] 12.[place] [address] 04/26 SPEP with immun ofixa tion Gamma globu ashley g/dL 0.8 1.7 1.5 FINAL Mary Palanisa my Serum [facility] [place] [address] 12.[place] [address] 04/26 SPEP with immun ofixa tion SPE inter preta tion Results Below Abnormal appearing globulin peak, possibly monoclona l. If indicated , recommend immunotyp ing (Test Code: [id number]) for further evaluatio n. If the SPEP wasordere d with reflex, immunotyp ing will be resulted upon completio n. FINAL Mary Palanisa my Serum [facility] [place] [address] [address] [address] 04/26 Bystrom /robbins da with K/L ratio , free, serum (mg/d L) [employer] , free mg/L 3.3 19.4 86.9 High FINAL Mary Palanisa my Serum [facility] [address] [address] [address] [address] 04/26 [employer]strom /robbins da with K/L ratio , free, serum (mg/d L) [employer] light chain , free mg/L 5.7 26.3 37.3 High FINAL Mary Palanisa lilia Serum [facility] [address] [address] [address] 04/26 Bystrom /robbins da with K/L ratio , free, [...] Mary Palanisa lilia Serum [facility] [address] [address] [address] 04/26 CBC w/aut o diff with refle x WBC 10^3/u L 4.8 10.8 6.4 FINAL Amry Palanisa my Whole Blood [facility].[address] [facility] ty .[address]rin [address] [place] [address] CLIA#45D [id number] 04/26 CBC w/aut o diff with refle x RBC 10^6/u L 4.2 5.4 4.06 Low FINAL Mary Palanisa my Whole Blood [facility].[address] [facility] [address] [place] [address] CLIA#45D [id number] 04/26 CBC w/aut o diff with refle x HGB g/dL 12.0 16.0 11.1 Low FINAL Mary Palanisa my Whole Blood [facility].[address] [facility] [address] [place] [address] CLIA#45D [id number] 04/26 CBC w/aut o diff with refle x HCT % 37.0 47.0 37.0 FINAL Mary Palanisa my Whole Blood [facility].[address] [facility] [address] [place] [address] CLIA#45D [id number] 04/26 CBC w/aut o diff with refle x MCV fL 81.0 99.0 91.1 FINAL Mary Palanisa my Whole Blood [facility].[address] [facility] [address] [place] [address] CLIA#45D [id number] 04/26 CBC w/aut o diff with refle x MCH pg 27.0 31.0 27.3 FINAL Mary Palanisa my Whole Blood [facility].[address] [facility] [address] [place] [address] CLIA#45D [id number] 04/26 CBC w/aut o diff with refle x MCHC g/dL 33.0 37.0 30.0 Low FINAL Mary Palanisa my Whole Blood [facility].[address] [facility] [address] [place] [address] CLIA#45D [id number] 04/26 CBC w/aut o diff with refle x PLT 10^3/u L 130.0 400.0 256 FINAL Mary Palanisa my Whole Blood [facility].[address] [facility] ty e [address] [place] [address] CLIA#45D [id number] 04/26 CBC w/aut o diff with refle x MPV fL 9.4 12.3 10.7 FINAL Mary Palanisa my Whole Blood [facility].[address] [facility] [address] [place] [address] CLIA#45D [id number] 04/26 CBC w/aut o diff with refle x RDW % 10.5 14.5 15.9 High FINAL Mary Palanisa my Whole Blood [facility].[address] [facility] [address] [place] [address] CLIA#45D [id number] 04/26 CBC w/aut o diff with refle x Jordy % % 40.0 77.0 56.0 FINAL Mary Palanisa my Whole Blood [facility].[address] [facility] [address] [place] [address] CLIA#45D [id number] 04/26 CBC w/aut o diff with refle x Jordy # (ANC) 10^3/u L 1.5 6.5 3.57 FINAL Mary Palanisa my Whole Blood [facility].[address] [facility] [address] [place] [address] CLIA#45D [id number] 04/26 CBC w/aut o diff with refle x IG % % 0.0 0.5 0.3 FINAL Mary Palanisa my Whole Blood [facility].[address] [facility] [address] [place] [address] CLIA#45D [id number] 04/26 CBC w/aut o diff with refle x IG # 10^3/u L 0.0 0.03 0.02 FINAL Mary Palanisa my Whole Blood [facility].[address] [facility] ty e [address] [place] [address] CLIA#45D [id number] 04/26 CBC w/aut o diff with refle x LY % % 15.0 41.0 19.6 FINAL Mary Palanisa my Whole Blood [facility].[address] [facility] [address] [place] [address] CLIA#45D [id number] 04/26 CBC w/aut o diff with refle x LY # 10^3/u L 1.2 3.4 1.25 FINAL Mary Palanisa my Whole Blood [facility].[address] [facility] ty e [address] [place] [address] CLIA#45D [id number] 04/26 CBC w/aut o diff with refle x MO % % 3.0 11.0 9.7 FINAL Mary Palanisa my Whole Blood [facility].[address] [facility] ty e [address] [place] [address] CLIA#45D [id number] 04/26 CBC w/aut o diff with refle x MO # 10^3/u L 0.0 1.0 0.62 FINAL Mary Palanisa my Whole Blood [facility].[address] [facility] ty e [address] [place] [address] CLIA#45D [id number] 04/26 CBC w/aut o diff with refle x EO % % 0.0 3.0 13.0 High FINAL Mary Palanisa my Whole Blood [facility].[address] [facility] [address] [place] [address] CLIA#45D [id number] 04/26 CBC w/aut o diff with refle x EO # 10^3/u L 0.0 0.3 0.83 High FINAL Mary Palanisa my Whole Blood [facility].[address] [facility] ty [address] [place] [address] CLIA#45D [id number] 04/26 CBC w/aut o diff with refle x BA % % 0.0 1.0 1.4 High FINAL Mary Palanisa my Whole Blood [facility].[address] [facility] ty e [address] [place] [address] CLIA#45D [id number] 04/26 CBC w/aut o diff with refle x BA # 10^3/u L 0.0 0.2 0.09 FINAL Mary Palanisa my Whole Blood [facility].[address] [facility] [address] [place] [address] CLIA#45D [id number] 04/26 CBC w/aut o diff with refle x NRBC, % % 0.0 0.2 0.0 FINAL Mary Palanisa my Whole Blood [facility].[address] [facility] [address] [place] [address] CLIA#45D [id number] 04/26 CBC w/aut o diff with refle x NRBC, absol port lions, x 10^3/ uL 10^3/u L 0.0 0.01 0.00 FINAL Mary Palanisa my Whole Blood [facility].[address] [facility] [address] [place] [address] CLIA#45D [id number] 04/26 TIBC and perce nt sat w/ iron panel Iron ug/dL 65.0 175.0 30.0 Low FINAL Mary Palanisa my Serum [facility].[address] [facility] [address] [place] [address] CLIA#45D [id number] 04/26 TIBC and perce nt sat w/ iron panel TIBC ug/dL 250.0 450.0 283.0 FINAL Mary Palanisa my Serum [facility].[address] [facility] [address] [place] [address] CLIA#45D [id number] 04/26 TIBC and perce nt sat w/ iron panel Iron, % satur ation % 15.0 50.0 11 Low FINAL Mary Palanisa my Serum [facility].[address] [facility] [address] [place] [address] CLIA#45D [id number] 04/26 Juliet tin panel Juliet tin ng/mL 8.0 252.0 266 High FINAL Mary Palanisa my Serum [facility] [address] [place] [address] CLIA#45D [id number] 11/07 TIBC and perce nt sat w/ iron panel Iron ug/dL 50.0 170.0 60.0 FINAL [facility] [address] [facility] [address] [place] [address] CLIA#45D [id number] 11/07 TIBC and perce nt sat w/ iron panel TIBC ug/dL 250.0 450.0 311.0 FINAL [facility].[address] [facility] [address] [place] [address] CLIA#45D [id number] 11/07 TIBC and perce nt sat w/ iron panel Iron, % satur ation % 15.0 50.0 19 FINAL [facility].[address] [facility] [address] [place] [address] CLIA#45D [id number] 11/07 Juliet tin panel Juliet tin ng/mL 8.0 252.0 228 FINAL [facility].[address] [facility] [address] [place] [address] CLIA#45D [id number] 11/07 CBC w/aut o diff with refle x WBC 10^3/u L 4.8 10.8 4.6 Low FINAL Luis Tucker Whole Blood [facility].[address] [facility] [address] [place] [address] CLIA#45D [id number] 11/07 CBC w/aut o diff with refle x RBC 10^6/u L 4.2 5.4 4.23 FINAL Luis Tucker Whole Blood [facility].[address] [facility] [address] [place] [address] CLIA#45D [id number] 11/07 CBC w/aut o diff with refle x HGB g/dL 12.0 16.0 12.4 FINAL Luis Tucker Whole Blood [facility].[address] [facility] [address] [place] [address] CLIA#45D [id number] 11/07 CBC w/aut o diff with refle x HCT % 37.0 47.0 40.8 FINAL Luis Tucker Whole Blood [facility].[address] [facility] ty e [address] [place] [address] CLIA#45D [id number] 11/07 CBC w/aut o diff with refle x MCV fL 81.0 99.0 96.5 FINAL Luis Tucker Whole Blood [facility].[address] [facility] ty [address] [place] [address] CLIA#45D [id number] 11/07 CBC w/aut o diff with refle x MCH pg 27.0 31.0 29.3 FINAL Luis Tucker Whole Blood [facility].[address] [facility] it e [address] [place] [address] CLIA#45D [id number] 11/07 CBC w/aut o diff with refle x MCHC g/dL 33.0 37.0 30.4 Low FINAL Luis Tucker Whole Blood [facility].[address] [facility] it e [address] [place] [address] CLIA#45D [id number] 11/07 CBC w/aut o diff with refle x PLT 10^3/u L 130.0 400.0 216 FINAL Luis Tucker Whole Blood [facility].[address] [facility] [address] [place] [address] CLIA#45D [id number] 11/07 CBC w/aut o diff with refle x MPV fL 9.4 12.3 10.3 FINAL Luis Tucker Whole Blood [facility].[address] [facility] [address] [place] [address] CLIA#45D [id number] 11/07 CBC w/aut o diff with refle x RDW % 10.5 14.5 14.0 FINAL Luis Tukcer Whole Blood [facility].[address] [facility] [address] [place] [address] CLIA#45D [id number] 11/07 CBC w/aut o diff with refle x Jordy % % 40.0 77.0 59.7 FINAL Luis Tucker Whole Blood [facility].[address] [facility] [address] [place] [address] CLIA#45D [id number] 11/07 CBC w/aut o diff with refle x Jordy # (ANC) 10^3/u L 1.5 6.5 2.73 FINAL Luis Tucker Whole Blood [facility].[address] [facility] [address] [place] [address] CLIA#45D [id number] 11/07 CBC w/aut o diff with refle x IG % % 0.0 0.5 0.4 FINAL Luis Tucker Whole Blood [facility].[address] [facility] [address] [place] [address] CLIA#45D [id number] 11/07 CBC w/aut o diff with refle x IG # 10^3/u L 0.0 0.03 0.02 FINAL Luis Tucker Whole Blood [facility].[address] [facility] [address] [place] [address] CLIA#45D [id number] 11/07 CBC w/aut o diff with refle x LY % % 15.0 41.0 19.0 FINAL Luis Tucker Whole Blood [facility].[address] [facility] [address] [place] [address] CLIA#45D [id number] 11/07 CBC w/aut o diff with refle x LY # 10^3/u L 1.2 3.4 0.87 Low FINAL Luis Tucker Whole Blood [facility].[address] [facility] [address] [place] [address] CLIA#45D [id number] 11/07 CBC w/aut o diff with refle x MO % % 3.0 11.0 9.8 FINAL Luis Tucker Whole Blood [facility].[address] [facility] [address] [place] [address] CLIA#45D [id number] 11/07 CBC w/aut o diff with refle x MO # 10^3/u L 0.0 1.0 0.45 FINAL Luis Tucker [facility] [facility] [place] [address] CLIA#[id number] 11/07 CBC w/aut o diff with refle x EO % % 0.0 3.0 9.6 High FINAL Luisbulmaro Tucker Whole [facility].[address] [place] [address] CLIA#45D [id number] 11/07 CBC w/aut o diff with refle x EO # 10^3/u L 0.0 0.3 0.44 High FINAL Luis Tucker [facility].[address] [place] [address] CLIA#45D [id number] 11/07 CBC w/aut o diff with refle x BA % % 0.0 1.0 1.5 High FINAL Luis Tucker Whole [facility].[address] [place] [address] CLIA#45D [id number] 11/07 CBC w/aut o diff with refle x BA # 10^3/u L 0.0 0.2 0.07 FINAL Luisbulmaro Tucker Whole [facility].[address] [place] [address] CLIA#45D [id number] 11/07 CBC w/aut o diff with refle x NRBC, % % 0.0 0.2 0.0 FINAL Luis Brown Whole [facility].[address] [place] [address] CLIA#45D [id number] 11/07 CBC w/aut o diff with refle x NRBC, absol port lions, x 10^3/ uL 10^3/u L 0.0 0.01 0.00 FINAL Luis [facility] Whole [facility].[address] [facility] e [address] [place] [address] .[place] [address] CLIA#45D [id number] 11/07 SPEP with immun ofixa tion Total prote in g/dL 6.1 8.1 6.4 FINAL Luis [facility] [place] [address] [address] [address] 11/07 SPEP with immun ofixa tion NOHEMI inter preta tion Results Below Normal pattern. No monoclona l proteins detected. FINAL Luis [facility] [place] [address] [address] [address] 11/07 SPEP with immun ofixa tion Album in, SPE g/dL 3.8 4.8 3.4 Low FINAL [facility] [place] [address] [address] [address] 11/07 SPEP with immun ofixa tion Alpha -1 globu ashley g/dL 0.2 0.3 0.3 FINAL [facility] [place] [address] [address] [address] 11/07 SPEP with immun ofixa tion Alpha -2 globu ashley g/dL 0.5 0.9 0.7 FINAL [facility] [place] [address] [address] [address] 11/07 SPEP with immun ofixa tion Beta- 1 g/dL 0.4 0.6 0.4 FINAL [facility] [place] [address] [address] [address] 11/07 SPEP with immun ofixa tion Beta- 2 g/dL 0.2 0.5 0.4 FINAL [facility] [place] [address] [address] [address] 11/07 SPEP with immun ofixa tion Gamma globu ashley g/dL 0.8 1.7 1.1 FINAL [facility] [place] [address] [address] [address] 11/07 SPEP with immun ofixa tion SPE inter preta tion Results Below Abnormal appearing gamma globulin peak, possibly monoclona l. If indicated ,recommen d immunotyp ing (Test Code: [id number]) for further evaluatio n. If the SPEPwas ordered with reflex, immunotyp ing will be resulted upon completio n. FINAL [facility] [address] [address] [address] 11/07 CMP Chlor loly mmol/L 97.0 107.0 106 FINAL [facility].52 [address] [facility] [address] [place] [address] CLIA#45D [id number] 11/07 CMP CO2 mmol/L 21.0 32.0 28.0 FINAL [facility].52 [address] [facility] [address] [place] [address] CLIA#45D [id number] 11/07 CMP Gluco se mg/dL 74.0 106.0 74 FINAL [facility].[address] [facility] [address] [place] [address] CLIA#45D [id number] 11/07 CMP BUN mg/dL 7.0 18.0 35 High FINAL [facility].[address] [facility] [address] [place] [address] CLIA#45D [id number] 11/07 CMP Creat inine , mg/dL mg/dL 0.55 1.3 1.41 High FINAL [facility].[address] [facility] [address] [place] [address] CLIA#45D [id number] 11/07 CMP GFR estim ate mil/mi n/1.73 m2 38 Low Result based on the eGFR 2020 calculati on.60-89 mL/min/1. 73m^2 without kidney damage may be normal.60 -89 mL/min/1. 73m^2 for 3 months or more, along with kidney damage, may indicate early kidney disease.C alculatio n modified to the 2020 formula effective 01/16/23. FINAL [facility].52 [address] [facility] [address] [place] [address] CLIA#45D [id number] 11/07 CMP BUN/C reati nine ratio 6.0 25.0 24.8 FINAL [facility].52 [address] [facility] [address] [place] [address] CLIA#45D [id number] 11/07 CMP Calci um mg/dL 8.5 10.1 9.7 FINAL [facility].52 [address] [facility] [address] [place] [address] CLIA#45D [id number] 11/07 CMP Album in g/dL 3.4 5.0 3.1 Low FINAL [facility].52 [address] [facility] [address] [place] [address] CLIA#45D [id number] 11/07 CMP Total prote in g/dL 6.4 8.2 7.3 FINAL [facility].52 [address] [facility] [address] [place] [address] CLIA#45D [id number] 11/07 CMP Globu ashley g/dL 2.2 4.2 4.2 FINAL [facility].52 [address] [facility] [address] [place] [address] CLIA#45D [id number] 11/07 CMP A/G ratio 0.8 2.0 0.7 Low FINAL [facility].52 [address] [facility] [address] [place] [address] CLIA#45D [id number] 11/07 CMP Bilir ubin, total mg/dL 0.2 1.0 0.6 FINAL [facility].52 [address] [facility] [address] [place] [address] CLIA#45D [id number] 11/07 CMP Alkal ine phosp hatas e U/L 46.0 116.0 100 FINAL [facility].[address] [facility] [address] [place] [address] CLIA#45D [id number] 11/07 CMP AST/S GOT U/L 15.0 37.0 26 FINAL [facility].[address] [facility] [address] [place] [address] CLIA#45D [id number] 11/07 CMP ALT/S GPT U/L 14.0 59.0 27 FINAL [facility].[address] [facility] [address] [place] [address] CLIA#45D [id number] 11/07 CMP Sodiu m mmol/L 136.0 145.0 143 FINAL [facility].[address] [facility] [address] [place] [address] CLIA#45D [id number] 11/07 CMP Potas sium mmol/L 3.5 5.1 4.3 FINAL [facility].[address] [facility] [address] [place] [address] CLIA#45D [id number] 11/07 Bystrom /robbins da with K/L ratio , free, serum (mg/d L) Bystrom light chain , free mg/L 3.3 19.4 73.5 High FINAL [facility]2 [address] [facility] [address] [address] 11/07 Bystrom /robbins da with K/L ratio , free, serum (mg/d L) Lambd a light chain , free mg/L 5.7 26.3 35.8 High FINAL [facility]2 [address] [facility] [address] [address] 11/07 Bystrom /robbins da with K/L ratio , free, [...] to therapy of these disorders . FINAL [facility] [address] [address] [address] Medications Date Name Route Dose Frequency Instructions [...] Notes Section * Nurse Note for: 22-FEB-23 [facility] Nurse Note Print Location: Unknown Date/Time Printed: 01/28/2025 19:46 ([facility]) Patient: JAMESON DOTSON Sex: Female : 1945 [...] mg Amount in mL: 15 Pharmacy dispense: [facility]: [id number] Dispense/Waste: 300/0 mg Given Dose/Discard: 300/0 mg Start Time: 13:09, Entered By: Ceci Torres RN, Sr-KELY, Stop Time: 14:39, Entered By: Ceci Torres RN, Sr-KELY Admix Fluid: 0.9 % sodium chloride, Admix Fluid Volume: 250mL, Total Volume: 265mL * Nurse Note for: 16-FEB-23 [facility] Nurse Note Print Location: Unknown Date/Time Printed: 01/28/2025 19:46 ([facility]) Patient: JAMESON DOTSON Sex: Female : 1945 [...] mg Amount in mL: 15 Pharmacy dispense: [facility]: [id number] Dispense/Waste: 300/0 mg Given Dose/Discard: 300/0 mg Start Time: 08:35, Entered By: Ceci Ohara, Stop Time: 10:05, Entered By: Ceci Ohara Admix Fluid: 0.9 % sodium chloride, Admix Fluid Volume: 250mL, Total Volume: 265mL * Nurse Note for: 04-FEB-23 [facility] Nurse Note Print Location: Unknown Date/Time Printed: 01/28/2025 19:46 ([facility]/[place]) Patient: JAMESON DOTSON Sex: Female : 1945 [...] mg Amount in mL: 15 Pharmacy dispense: [facility]: [id number] Dispense/Waste: 300/0 mg Given Dose/Discard: 300/0 mg Start Time: 14:00, Entered By: Norah Singer LPN, Stop Time: 15:30, Entered By: Norah Singer LPN Admix Fluid: 0.9 % sodium chloride, Admix Fluid Volume: 250mL, Total Volume: 265mL * Nurse Note for: 28-JAN-23 [facility] Nurse Note Print Location: Unknown Date/Time Printed: 01/28/2025 19:46 ([facility]) Patient: JAMESON DOTSON Sex: Female : 1945 [...] mg Amount in mL: 15 Pharmacy dispense: [facility]: [id number] Dispense/Waste: 300/0 mg Given Dose/Discard: 300/0 mg Start Time: 13:39, Entered By: Norah Singer LPN, Stop Time: 15:09, Entered By: Norah Singer LPN Admix Fluid: 0.9 % sodium chloride, Admix Fluid Volume: 250mL, Total Volume: 265mL * Nurse Note for: 21-JAN-23 [facility] Nurse Note Print Location: Unknown Date/Time Printed: 01/28/2025 19:46 ([facility]) Patient: JAMESON DOTSON Sex: Female : 1945 [...] mg Amount in mL: 15 Pharmacy dispense: [facility]: [id number] Dispense/Waste: 300/0 mg Given Dose/Discard: 300/0 mg Start Time: 12:50, Entered By: Norah Singer LPN, Stop Time: 14:20, Entered By: Norah Singer LPN Admix Fluid: 0.9 % sodium chloride, Admix Fluid Volume: 250mL, Total Volume: 265mL * Nurse Note for: 30-DEC-22 [facility] Nurse Note Print Location: Unknown Date/Time Printed: 01/28/2025 19:46 ([facility]) Patient: JAMESON DOTSON Sex: Female : 1945 [...] on 09:30 * Nurse Note for: 24-DEC-21 [facility] Nurse Note Print Location: Unknown Date/Time Printed: 01/28/2025 19:46 ([facility]) Patient: JAMESON DOTSON Sex: Female : 1945 [...] on 10:51 * Nurse Note for: 24-JUN-21 [facility] Nurse Note Print Location: Unknown Date/Time Printed: 01/28/2025 19:46 ([facility]) Patient: JAMESON DOTSON Sex: Female : 1945 [...]
--- OUTSIDE RECORDS SUMMARY | 2025-01-28 19:46 | XMS_ITS | Clinical Summary ---
[facility] Address [address] [place] [address] Care Team Providers Care Brush Hand Name Role Phone Unavailable Primary Care Provider [...]
--- OUTSIDE RECORDS SUMMARY | 2025-01-28 19:46 | XMS_ITS | Clinical Summary ---
Author Organization [facility] Address [address] [place] [address] Care Team Providers Care Benzol Operator Name Role Phone Jose Manuel Garner MD Unavailable Carlo Vela MD Unavailable [phone] Aurora Becerra APRN, FNP Unavailable Edmond Villarreal MD Unavailable [phone] Gianni Dick MD Unavailable [phone] Kishor Walker MD Unavailable Mary Gomez MD Unavailable [phone] Ritesh Meadows MD Unavailable [phone] Jarad Booker DO Unavailable Dc Huynh MD Unavailable [phone] Fritz Rivera DO Unavailable [phone] Logan Babin DO Unavailable [phone] Kadeem Aguayo MD Primary Care Provider [phone] Elmer Lopez DO Unavailable Allergies Active Allergy Reactions Criticality Noted Date Comments Sulfa (Sulfonamide Antibiotics) Swelling Medium /0 05/2018 Medications aspirin 81 MG chewable tablet Chew 1 tablet (81 mg total) by mouth daily. 30 tablet 11 10/14/20 20 Active atorvastatin (LIPITOR) 40 MG tabletIndications: Mixed hyperlipidemia Take 1 tablet (40 mg total) by mouth daily. 90 tablet 3 06/22/20 24 025 Active omeprazole (PRILOSEC) 20 MG capsuleIndications :Gastroesophageal reflux disease, unspecified whether esophagitis present Take 1 capsule (20 mg total) by mouth 2 (two) times daily. 180 capsule 3 06/22/20 24 Active levothyroxine 25 MCG Oral tabletIndications: Hypothyroidism, unspecified type Take 1 tablet (25 mcg total) by mouth daily. 90 tablet 3 06/27/20 24 Active empagliflozin (JARDIANCE) 25 mg Tab tablet Take 1 tablet (25 mg total) by mouth daily. 90 tablet 3 10/03/20 24 025 Active spironolactone (ALDACTONE) 25 MG tablet Take 1 tablet (25 mg total) by mouth daily. 90 tablet 3 10/03/20 24 Active albuterol 2.5 mg /3 mL (0.083 %) nebulizer solutionIndication s:chronic obstructive pulmonary disease Take 3 mLs (2.5 mg total) by nebulization every 6 (six) hours as needed for Wheezing. Indications: chronic obstructive pulmonary disease 3 mL 3 10/16/20 24 Active ipratropium (ATROVENT) 0.5 mg/2.5 mL (0.02 %) nebulizer solutionIndication s:Subacute cough Take 2.5 mLs (0.5 mg total) by nebulization 4 (four) times daily for 10 days. 100 mL 10/31/19 25 Active triamcinolone (KENALOG) 0.025 % creamIndications:V ulvar dermatitis Apply topically 2 (two) times daily Apply to the rash on the vulvar area for 14 days. 15 g 10/31/19 25 Active venlafaxine (EFFEXOR) 37.5 MG tabletIndications: Moderate episode of recurrent major depressive disorder (CMS-HCC) Take 2 tablets (75 mg total) by mouth daily. 120 tablet 1 12/30/19 25 Active ondansetron (ZOFRAN-ODT) 4 MG disintegrating tabletIndications: Nausea Take 1 tablet (4 mg total) by mouth every 8 (eight) hours as needed for Nausea. 20 tablet 12/30/19 25 Active Active Problems Problem Noted Date Diagnosed Date S/P insertion of intrathecal pump 12/07/2023 Abnormal esophagram 10/29/2023 Gastric hourglass stricture or stenosis 09/30/20 23 Moderate protein malnutrition (HHS-HCC) 09/26/20 23 Aspiration pneumonia 09/25/2023 Coronary artery disease invo lving cheesh-na coronary artery of cheesh-na heart without angina pectoris 09/25/2023 History of coronary artery stent placement 09/25 History of CVA (cerebrovascular accident) 2022 Stress-induced cardiomyopathy 09/25/2023 Acute systolic HF (heart failure) 09/25/2023 Chronic diastolic heart failure 09/25/2023 Elevated troponin 09/25/2023 Septic shock 09/25/2023 Acute respiratory failure with hypoxia Hiatal hernia 09/22/2023 Diverticulosis 09/22/2023 Pulmonary edema (HHS-HCC) 09/22/2023 Aspiration pneumonia of left lower lobe due to v omit 09/07/2023 Stage 3b chronic kidney disease 09/07/2023 Severe sepsis 09/05/2023 Pneumonia of both lower lobes due to infectious organism 09/05/2023 Dysphagia 08/06/2023 Assessment & Plan (12/07/2023 2:09 PM FIELD MECHANICAL METER TESTER): ASSESSMENT: The patient's condition is improved. PLAN: The patient had complicated medical/surgical history with a large hiatal hernia after gastric sleeve which resulted in severe acid reflux, dysphagia and recurrent aspiration pneumonias requiring ICU admission. 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 Postoperative course complicated by anastomotic stricture and food impaction. However, after 2 subsequent upper endoscopies she is feeling much better. Unfortunately patient does have significant anxiety regarding eating given her recent experiences. Will proceed with repeat upper endoscopy and potential balloon dilation. Will also assess for presence of suture material. Patient will continue her current dietary regiment. She could start drinking water during. She was informed to avoid tough/fibrous meats for now. Patient will continue omeprazole and Carafate therapy. Follow-up after procedure completed. Positive colorectal cancer screening using Colog uard test 04/21/2023 Heart failure, unspecified 01/25/2023 Overview (01/25/2023): OP CDI The diagnosis was added based on: Documentation in OV dated 01/20/23, states Heart Failure. Venous stasis 01/20/2023 Postprandial vomiting 01/20/2023 Assessment & Plan (02/23/2023 10:02 AM CDT): ASSESSMENT: The patient's condition is new. PLAN: Etiology unclear at this time in GI differential diagnosis includes pyloric stenosis, delayed gastric emptying as a result of vagal nerve injury/gastroparesis. Peptic ulcer disease as well as gallbladder pathology are a possibility. Will evaluate further with upper endoscopy. If symptoms persist will proceed with gallbladder evaluation. Continue current Omeprazole therapy. Return to clinic after procedure completed. Assessment & Plan (01/20/2023 2:57 PM CDT): New problem, unclear etiology but may need anatomical evaluation with GI. Referral placed. May need vitamin labs at future visit. Venous insufficiency of both lower extremities 0 01/20/2023 Assessment & Plan (01/20/2023 2:56 PM CDT): Advised use of compression stockings daily, elevation of legs. Osteopenia 02/18/2022 Overview (02/18/2022): Patient with osteopenia on DEXA scan 2021, less than 20% FRAX score. Recommend calcium and vitamin-D strength training exercises and no smoking. Recheck DEXA scan in spring 2022 or 2023 Hypertensive heart disease with heart failure Assessment & Plan (01/20/2023 2:55 PM CDT): Unchanged. Will stop metolazone 2.5 mg daily for now and monitor for any changes. Assessment & Plan (12/31/2021 12:49 PM CDT): ASSESSMENT: The patient's condition is unchanged. PLAN: Continue current medication management Lymphedema 08/14/2021 Elevated immune protein in blood 11/20/2020 Atherosclerotic heart diseas e of cheesh-na coronary artery with unspecified angina pectoris 10/05/2020 Overview (11/12/2021): Added automatically from request for surgery [id number] OP CDI Previous Dx on Problem List: I25.10 CAD Updated Dx on Problem List: I25.119 CAD w/ unspecified angina pectoris The diagnosis was changed based on: Documentation in OV dated 09/22/21, states CAD w/ unspecified angina pectoris COPD with acute exacerbation 07/29/2020 Assessment & Plan (01/20/2023 2:56 PM CDT): Images from the original note were not included. Symptoms worse post-respiratory illness, already received steroids and abx at . Refill inhalers as below. Rescue Medications Asthma/COPD Therapy - Beta 2-Adrenergic Agents, Inhaled, Short Acting albuterol HFA inhaler 90 mcg/actuation Inhale 2 puffs into the lungs every 6 (six) hours as needed for Wheezing. Indications: wheezing Smoking history 07/29/2020 Acute bronchitis, unspecified organism 0 Assessment & Plan (03/25/2020 2:21 PM CDT): ASSESSMENT: The patient's condition is new. PLAN: Congestion (clear), cough, wheezing x 10 days. Clear nasal d/c, bilat effusions, persistent loose cough on exam. No rales or rhonchi appreciated. Late insp wheezing appreciated to bilat lower lobes. Pt swabbed for COVID. Will treat with zpac, atrovent nasal spray and albuterol PRN. Will prescribe steroids to hold and only start for worsening symptoms. Pt agreeable to plan. ER precautions for worsening symptoms. Chronic midline back pain 01/20/2020 Moderate episode of recurrent major depressive d isorder 09/05/2019 Assessment & Plan (12/31/2021 12:49 PM CDT): ASSESSMENT: The patient's condition is unchanged. PLAN: Continue paroxetine, patient reports benefit with medication stable symptoms. Gastroesophageal reflux dise ase, esophagitis presence not specified 09/05/2019 Hypothyroidism, unspecified type 09/05/2019 Mixed hyperlipidemia 09/05/2019 Chronic back pain greater than 3 months duration 05/09/2018 Drug-induced constipation 05/03/2018 Assessment & Plan (05/03/2018 11:17 AM CDT): Most likely opioid related. Appears to have resolved. Patient had episode of fecal incontinence yesterday on lactulose. Patient instructed to transition to MiraLAX daily as needed. Encounter for preadmission testing Resolved Problems Problem Noted Date Diagnosed Date Resolved Date Nausea and vomiting 09/05/2023 09/07/20 Hypovolemia 09/05/2023 09/07/2023 Acute hypoxemic respiratory failure 09/05/2023 09/07/2023 Abnormal computed tomography angiography (CTA) 10/05/2020 10/14/2020 Overview (10/05/2020): Added automatically from request for surgery [id number] SOB (shortness of breath) 10/05/2020 Overview (10/05/2020): Added automatically from request for surgery [id number] Urinary retention 01/20/2020 01/21/2020 PRES (posterior reversible e ncephalopathy syndrome) 01/19/2020 01/21/2020 Acute encephalopathy 01/19/2020 020 Essential hypertension 09/05/201909/22 Colon cancer screening 05/03/201804/21 Assessment & Plan (05/03/2018 11:15 AM CDT): Patient is overdue for screening colonoscopy. This will be arranged with anesthesia support. Heartburn 05/03/2018 09/05/2019 Assessment & Plan (05/03/2018 11:26 AM CDT): Continue omeprazole for now. Avoid reflux triggers. This may prove difficult as patient is unlikely to avoid tomatoes and chocolate. Upper endoscopy to investigate further. Shortness of breath 11/20/19 21 Encounters Date Type Department Care Team Description 12/29/2024 1:00 PM CDT Office Visit [facility] [place] [address] [place], [place] [id number] Eloisa Mullen DO Moderate episode of recurrent major depressive disorder (CMS-HCC) (Primary Dx); Nausea 12/29/2024 Travel 11/24/2024 11:00 AM FIELD MECHANICAL METER TESTER Office Visit [facility] [address] [place] [address] Eloisa Mullen DO Moderate episode of recurrent major depressive disorder ([facility]-H[facility]) (Primary Dx); Irregular heart rhythm 11/24/2024 Travel 11/10/2024 11:00 AM FIELD MECHANICAL METER TESTER Office Visit [facility] [address] [place] [address] Eloisa Mullen DO Moderate episode of recurrent major depressive disorder (CMS-HCC) (Primary Dx); Moderate episode of recurrent major depressive disorder (CMS-HCC) 11/10/2024 Travel 10/31/2024 11:20 AM FIELD MECHANICAL METER TESTER Ancillary Procedure [facility] Subacute cough 10/31/2024 10:00 AM FIELD MECHANICAL METER TESTER Office Visit [facility] [address] [place] [address] Eloisa Mullen DO Subacute cough (Primary Dx); Stool incontinence; Vulvar dermatitis 10/31/2024 Travel from Last 3 Months Immunizations Immunization Administration Dates Next Due Flu (IIV4) Preservative Free IM 08/16/2018 Fluzone High Dose Greater th an or equal to 65YO 08/27/2023,08/31/2022,08/14/2021,08/02,08/24/2019 Pfizer Covid-19 (Purple Cap) 11/29/2020,11/08/19 21 Pneumococcal Polysaccharide (Pneumovax) 08/02/2020 Family History Medical History Relation Name Comments Lymphoma Father Stroke Mother Relation Name Status Comments Daughter 1 Alive Daughter 2 Alive Daughter 3 Alive Father Mother Social History Tobacco Use Types Packs/Day Years Used Date Smoking Tobacco: Former Cigarettes 2 35 0 11/1967 - 11/2002 Smokeless Tobacco: Never Tobacco Cessation:Counseling Given: No Alcohol Use Standard Drinks/Week Comments No 0 (1 standard drink = 0.6 oz pur e alcohol) [facility] Utilities Answer Date Recorded In the past 12 months has th e [employer], gas, oil, or water [employer] threatened to shut off services in your [...] file Not on file Not on file Last Filed Vital Signs Vital Sign Reading Time Taken Comments Blood Pressure 116/60 12/29/2024 1:16 PM CDT Pulse 88 12/29/2024 1:16 PM CDT Temperature 37.1 C (98.7 F) 12/29/2024 1:16 PM CDT Respiratory Rate 8 12/29/2024 1:16 PM CDT Oxygen Saturation 97% 12/29/2024 1:16 PM CDT Inhaled Oxygen Concentration - - Weight 57.1 kg (125 lb 12.8 oz) 12/29/2024 1:16 PM CDT Height 157.5 cm (5' 2.01 ) 12/29/2024 1:16 PM CD T Body Mass Index 23 12/29/2024 1:16 PM CDT Plan of Treatment Upcoming Encounters Date Type Department Care Team (Late st Contact Info) Description 02/02/2025 9:40 AM CDT Office Visit [facility] [place] [address] [place] [phone] Eloisa Mullen, [address] [place] [address] 08/22/2025 10:20 AM FIELD MECHANICAL METER TESTER Office Visit [facility] [address] [place] [phone] Mary Moncada, DO [address] [place] [address] 09/17/2025 9:30 AM FIELD MECHANICAL METER TESTER Ancillary Procedure [facility] [address] [place] [address] 10/04/2025 11:15 AM FIELD MECHANICAL METER TESTER Office Visit [facility] [address] [place] [address] Gianni Dick MD [address] [place] [address] Health Maintenance Due Date Last Done Comments Advance Care Planning 1945 Bariatric/Malabsorption Nutrition Monitoring 1945 Colorectal Cancer Screening: CT Colonography 1945 Colorectal Cancer Screening: Fecal Occult Blood 1945 Colorectal Cancer Screening: Sigmoidoscopy 1945 Tetanus Booster Vaccines 1966 Zoster Vaccine (1 of 2) 1997 Pneumococcal Vaccine (50+) (2 of 2 - PCV) 08/02/2021 08/02/2020 RSV (Adults 60+) (1 - 1-dose 75+ series) 2022 COVID-19 Vaccine (3 - season) 2024 11/29/2020, 11/08/2020 Medicare Wellness Visit 08/27/2024 08/27/20 23, 12/31/2021, 11/19/2020, Additional history exists Kidney Health Evaluation 11/06/2024 11/06/2023 Mood Screen 12/29/2025 12/29/2024, 12/16, 11/24/2024, Additional history exists Colorectal Cancer Screening: FIT-DNA 02/16/2026 02/16/2023, 09/28/2019 Colorectal Cancer Screening: Colonoscopy 04/21/2028 04/21/2023 Colorectal Cancer Screening 04/21/2028 Hepatitis C Screening Adults Completed 08/16/2018 Breast Cancer Screening (Bilateral) Discontinued 02/17/2022, 09/22/2019 Osteoporosis Screening Completed 02/17/2022 Lipid Screening Discontinued 01/20/2023, 07/19, 10/14/2020, Additional history exists Seasonal Influenza Vaccine Completed 08/21, 08/27/2023, 08/31/2022, Additional history exists HPV Vaccines Aged Out No longer eligi ble based on patient's age to complete this topic Hepatitis A Vaccines Aged Out No long er eligible based on patient's age to complete this topic Hepatitis B Vaccines Aged Out No long er eligible based on patient's age to complete this topic Hib Vaccines Aged Out No longer eligi ble based on patient's age to complete this topic Meningococcal (ACWY) Vaccines Aged Out No longer eligible based on patient's age to complete this topic Meningococcal B Vaccine Aged Out No l onger eligible based on patient's age to complete this topic Pediatric RSV Vaccines Aged Out No olga bustos eligible based on patient's age to complete this topic Polio Vaccines Aged Out No longer stephanie wilsonduc based on patient's age to complete this topic Goals Goal Patient Goal Type Associated Problems Recent Progress Patient-Stated? Author GEORGE Systolic Heart Failure Plan Disease Management Gianni Reynoso MD Note: Images from the original note [...] glutamate (MSG). MSG is sometimes added to [place] food and some canned foods. Check food [...] vegetable juices. Frozen vegetables in sauces. Salted Russian fries. Olives. Pickles. Relishes. Sauerkraut. Salsa. Meat [...] Billy fat. Other Potato and tortilla chips. [place] chips and puffs. Salted popcorn and pretzels. [...] 03/26/2003 Document Revised: 10/25/2015 Document Reviewed: 08/08/2014 [employer] Interactive Patient Education 2016 [employer] Weight Management Action Plan Weight No [...] with your provider about getting started. The jail goal is to get to and stay [...] way up to at least 5,000 steps/day. StarMobile and Compound Time are examples free and fun apps that can help keep track of your activity. Try searching f [employer] in the joseph store for more ideas. [...] food that is high in fat. Examples: indonesian fries, hamburgers, chicken nuggets, and pizza. Choose [...] sources: Book: Eat This, Not That Online: comment.com.invi Google: Mediterranean diet Medical Devices Implanted Type Area Sewing Pattern Layout Technician Device Identifier Shelf Expiration Date Model / Serial / Lot Drug Eluting Stent Jermyn Rx 2.75mm X 12mm - [id number] Implanted:Qty: 1 on 10/14/2020 by Gianni Dick [facility] Eluting Stent Coronary [employer] 11/13/2021 [id number] / / [id number] Fibrin Vistaseal Sealant, 10ml, Vst10 - [id number] Implanted:Qty: 1 on 09/30/2023 by Jarad Booker DO at [facility] Hemostatic Agents KATHY 02/07/2025 [id number] / / [id number] Morphine Pump Implant Implant Left: Hip Description:Sewing Pattern Layout Technician: Fl owonix Model: Prometra II Pump model # 54094 [id number] Implant date 02/21/2020 Volume 20ml Catheter Model [id number] [place] [id number] Implant date 04/30/21 Volume 0.302ml Pump location left flank Catheter tip T7 [employer] Tech number [id number] Implanting Physician Carlo Garcia [phone] Before MRI procedures pump is emptied by [employer] rep Patient does not have controller for device Delivers dose twice daily morning and night Closure Device Angioseal Plus 6f Sts - [id number] Implanted:Qty: 1 on 10/14/2020 by Gianni Dick MD at [facility] Implant Coronary [facility] [employer]:YAHAIRA (STJUD_DA) 05/17/2021 [id number] / / Mesh Hernia Od4.5in Polypropyl Susana Ventral Circular Absorbabl - [id number] Implanted:Qty: 1 on 09/30/2023 by Jarad Booker DO at [facility] Implant N/A: Diaphragm [employer] 09/14/2024 [id number] / / [id number] Plate Plate Back Lincoln Lincoln Bilateral: Back Screw Screw Back Bilateral Shoulder Replacement Bilateral Knee Replacement Procedures Procedure Name Priority Date/Time Associated Diagnosis Comments ECG 12-LEAD Routine 11/24/2024 11:40 AM FIELD MECHANICAL METER TESTER Irregular heart rhythm XR CHEST 2 VIEWS Routine 11/02/2024 1:23 PM FIELD MECHANICAL METER TESTER Subacute cough COLONOSCOPY Routine 04/21/2023 10:48 AM CDT Positive colorectal cancer screening using Cologuard test FIT-DNA (FECAL IMMUNOCHEMICAL TEST DNA) Routine 02/16/2023 1:00 PM CDT Colon cancer screening LIPID PANEL Routine 01/20/2023 2:59 PM CDT Hypertensive heart disease with heart failure (HCC) XR DEXA AXIAL SKELETON Routine 10:41 AM CDT Asymptomatic menopausal state MG DIGITAL SCREEN BILATERAL W WO CAD Routine 02/17/2022 10:40 AM CDT Encounter for screening mammogram for malignant neoplasm of breast HEPATITIS C VIRUS ANTIBODY, QUALITATIVE SCREEN Routine 08/16/2018 12:09 PM CDT Hereditary and idiopathic neuropathy, unspecified from Last 3 Months or Most Recently Relevant to Health Maintenance Results * ECG 12-Lead (11/24/2024 11:40 AM FIELD MECHANICAL METER TESTER) VENTRICULAR RATE 88 BPM MUSE ATRIAL RATE 88 BPM MUSE PRINT 116 ms MUSE QRS DURATION 92 ms MUSE Q-T INTERVAL 364 ms MUSE QTCINT 440 ms MUSE P AXIS 68 degrees MUSE R AXIS -8 degrees MUSE T AXIS 31 degrees MUSE DIAGNOSIS Test Reason : - Vent. Rate : 088 BPM Atrial Rate : 088 BPM P-R Int : 116 ms QRS Dur : 092 ms QT Int : 364 ms P-R-T Axes : 068 -08 031 degrees QTc Int : 440 ms Normal sinus rhythm Normal ECG When compared with ECG of 21-OCT-2023 12:16, No significant change was found Referred By: Confirmed By:Kadeem MELENDEZ 11/24/2024 11:4 0 AM FIELD MECHANICAL METER TESTER 12/14/2024 1:04 PM FIELD MECHANICAL METER TESTER us Kadeem Aguayo MD ECG ORDERABLES Edited Re sult - Final MUSE * TS XR Chest 2 Views (11/02/2024 1:23 PM FIELD MECHANICAL METER TESTER) Anatomical Region Laterality Modality Chest Computed Tomogra phy 11/02/2024 1:16 PM FIELD MECHANICAL METER TESTER Narrative 11/02/2024 1:49 PM FIELD MECHANICAL METER TESTER EXAMINATION: Xray Chest 2 Views DATE OF EXAM: 11/02/2024 2:16 PM EST CLINICAL INDICATION: Subacute cough F R052 2 views COMPARISON: 09/15/2023 TECHNIQUE: PA and lateral views of the chest were obtained. FINDINGS: DEVICES: None. CARDIAC SILHOUETTE: Heart size within normal limits. Aortic calcification. MEDIASTINUM: Normal contours. LUNGS: No airspace consolidation. PLEURA: Mild blunting of the left lateral costophrenic angle, improved from prior chest radiograph. BONES: Degenerative changes in the spine. Chronic T10 compression fracture OTHER: None. IMPRESSION: No acute cardiopulmonary process. Physician/Physician offices only: We appreciate the opportunity to participate in the care of your patient. If you are a physician and have questions about this report or would like a consultation with a subspecialized radiologist, please call the [employer] consultation hotline, at [phone] for prompt service. Patients should contact the referring physician that ordered their exam for clarification or questions concerning their report. Dr. Donnie Boles, Radiology [employer] [facility] [facility] Procedure Note Donnie Boles MD - 11/02/2024 EXAMINATION: Xray Chest 2 Views DATE OF EXAM: 11/02/2024 2:16 PM EST CLINICAL INDICATION: Subacute cough F R052 2 views COMPARISON: 09/15/2023 TECHNIQUE: PA and lateral views of the chest were obtained. FINDINGS: DEVICES: None. CARDIAC SILHOUETTE: Heart size within normal limits. Aorticcalcification. MEDIASTINUM: Normal contours. LUNGS: No airspace consolidation. PLEURA: Mild blunting of the left lateral costophrenic angle, improvedfrom prior chest radiograph. BONES: Degenerative changes in the spine. Chronic T10 compressionfracture OTHER: None. IMPRESSION: No acute cardiopulmonary process. Physician/Physician offices only: We appreciate the opportunity toparticipate in the care of your patient. If you are a physician and havequestions about this report or would like a consultation with asubspecialized radiologist, please call the [employer] consultation hotline, at [phone] for prompt service.Patients should contact the referring physician that ordered their examfor clarification or questions concerning their report. Dr. Donnie Boles, Radiology [employer] Linnea Arana MD IMG DIAGNOSTIC IMAGING ORDERA BLES Final Result * Diagnostic Colonoscopy (04/21/2023 10:48 AM CDT) 04/21/2023 10:4 8 AM CDT Narrative [facility] - 04/21/2023 12:00 PM CDT [facility] Patient Name: Shelby Egan Procedure Date: 04/21/2023 10:48 AM Attending MD: Dc Hyunh MD Admit Type: Outpatient Date of : 1945 Room: [facility] 1 Age: 77 Note Status: Finalized Gender: Female Procedure: Colonoscopy Indications: Positive Cologuard test Comorbidities: Providers: Dc Huynh MD (Doctor), Denia Ortega, Nurse, Sienna De Paz RN, Emil Tate RECEIVING CHECKER, Concha Ray Referring MD: Kadeem Aguayo MD (Referring MD) Medicines: Monitored Anesthesia Care Complications: No immediate complications. Estimated Blood Loss: Estimated blood loss: none. Total Procedure Duration: 0 hours 31 minutes 21 seconds Scope Withdrawal Time: 0 hours 14 minutes 27 seconds Procedure: Pre-Anesthesia Assessment: - Prior to the procedure, a History and Physical was performed, and patient medications, allergies and sensitivities were reviewed. The patient's tolerance of previous anesthesia was reviewed. - The risks and benefits of the procedure and the sedation options and risks were discussed with the patient. All questions were answered and informed consent was obtained. - Patient identification and proposed procedure were verified prior to the procedure. The procedure was verified in the pre-procedure area in the procedure room. - ASA Grade Assessment: III - A patient with severe systemic disease. - After reviewing the risks and benefits, the patient was deemed in satisfactory condition to undergo the procedure. - Immediately prior to administration of medications, the patient was re-assessed for adequacy to receive sedatives. - Sedation was administered by an anesthesia professional. Deep sedation was attained. - The heart rate, respiratory rate, oxygen saturations, blood pressure, adequacy of pulmonary ventilation, and response to care were monitored throughout the procedure. - The physical status of the patient was re-assessed after the procedure. After obtaining informed consent, the scope was passed under direct vision. Throughout the procedure, the patient's blood pressure, pulse, and oxygen saturations were monitored continuously. The [id number] was introduced through the anus and advanced to the cecum, identified by appendiceal orifice and ileocecal valve. The colonoscopy was technically difficult and complex due to a redundant colon, significant looping and a tortuous colon. Successful completion of the procedure was aided by applying abdominal pressure. The patient tolerated the procedure well. The quality of the bowel preparation was adequate to identify polyps. Findings: Hemorrhoids were found on perianal exam. A 8 mm polyp was found in the transverse colon. The polyp was sessile. The polyp was removed with a cold snare. Resection and retrieval were complete. A 4 mm polyp was found in the sigmoid colon. The polyp was sessile. The polyp was removed with a piecemeal technique using a cold biopsy forceps. Resection and retrieval were complete. The colon (entire examined portion) was grossly tortuous. Scattered medium-mouthed diverticula were found in the sigmoid colon and descending colon. Non-bleeding internal hemorrhoids were found during retroflexion. The hemorrhoids were small. Impression: - Hemorrhoids found on perianal exam. - One 8 mm polyp in the transverse colon, removed with a cold snare. Resected and retrieved. - One 4 mm polyp in the sigmoid colon, removed piecemeal using a cold biopsy forceps. Resected and retrieved. - Tortuous colon. - Diverticulosis in the sigmoid colon and in the descending colon. - Non-bleeding internal hemorrhoids. Recommendation: - Written discharge instructions were provided to the patient. - Discharge patient to home (ambulatory). - Resume previous diet. - Continue present medications. - No aspirin, ibuprofen, naproxen, or other non-steroidal anti-inflammatory drugs for 1 week after polyp removal. - Repeat colonoscopy in 5 years for surveillance based on health status at that time. Would need 1 hour time slot if completed. - The findings and recommendations were discussed with the patient. Procedure Code(s): --- Professional --- 56325, Colonoscopy, flexible; with removal of tumor(s), polyp(s), or other lesion(s) by snare technique 22552, 59, Colonoscopy, flexible; with biopsy, single or multiple Diagnosis Code(s): --- Professional --- K64.8, Other hemorrhoids K63.5, Polyp of colon R19.5, Other fecal abnormalities K57.30, Diverticulosis of large intestine without perforation or abscess without bleeding Q43.8, Other specified congenital malformations of intestine CPT copyright 2019 [place] [employer]. All rights reserved. Codes on this report are populated by the [employer] software and may not reflect final code assignment. Dc Huynh Dc Huynh MD 04/21/2023 11:53:58 AM Number of Addenda: 0 Note Initiated On: 04/21/2023 10:48 AM [facility] - GI Lab us Dc Huynh MD GI PROCEDURE ORDERABLES Edited Result - Final [facility]ATION * (ABNORMAL) FIT-DNA (Fecal Immunochemical Test DNA) (02/16/2023 1:00 PM CDT) COLOGUARD Positive( A) Negative 02/23/2023 11:42 PM CDT [email or web address] (CLIA #:[id number]) Comment: POSITIVE TEST RESULT. A positive Cologuard result should be followed with a colonoscopy or visual examination of the colon. The normal value (reference range) for this assay is negative. TEST DESCRIPTION: Composite algorithmic analysis of stool DNA-biomarkers with hemoglobin immunoassay. Quantitative values of individual biomarkers are not reportable and are not associated with individual biomarker result reference ranges. Cologuard is intended for colorectal cancer screening of adults of either sex, 45 years or older, who are at average-risk for colorectal cancer (CRC). Cologuard has been approved for use by the U.S. FDA. The performance of Cologuard was established in a cross sectional study of average-risk adults aged 50-84. Cologuard performance in patients ages 45 to 49 years was estimated by sub-group analysis of near-age groups. Colonoscopies performed for a positive result may find as the most clinically significant lesion: colorectal cancer [4.0%], advanced adenoma (including sessile serrated polyps greater than or equal to 1cm diameter) [20%] or non- advanced adenoma [31%]; or no colorectal neoplasia [45%]. These estimates are derived from a prospective cross-sectional screening study of 10,000 individuals at average risk for colorectal cancer who were screened with both Cologuard and colonoscopy. (Shadi Vaughan al, N Engl J Med 2014;370(14):1436-2046.) Cologuard may produce a false negative or false positive result (no colorectal cancer or precancerous polyp present at colonoscopy follow up). A negative Cologuard test result does not guarantee the absence of CRC or advanced adenoma (pre-cancer). The current Cologuard screening interval is every 3 years. ([place] [employer] and [place].S. Multi-Society Task Force). Cologuard performance data in a 10,000 patient pivotal study using colonoscopy as the reference method can be accessed at the following location: [email or web address]. Additional description of the Cologuard test process, warnings and precautions can be found at [email or web address]. Stool specimen (specimen) RECTUM STRUCTURE / Unknown 02/16/2023 1:00 PM CDT 02/17/2023 2:21 PM CDT us Kadeem Aguayo MD BODY FLUIDS AND STOOLS OR DERABLES Final Result [email or web address] (CLIA #:[id number]) [address] [phone] * Lipid Panel (01/20/2023 2:59 PM CDT) Cholesterol, Total 168 <200 mg/dL 2022 10:10 PM CDT [facility] [employer] [facility] Triglycerides 107 <150 mg/dL 01/20/2023 10:10 PM CDT [facility] HDL Cholesterol 77 40 - 60 mg/dL 01/20/2023 10:10 PM T [facility] Comment: < 40 mg/dL: Low HDL-Cholesterol (major risk factor for CHD) >= 60 mg/dL: High HDL-Cholesterol (negative risk factor for CHD) LDL CHOLESTEROL CALCULATED 70 0 - 99 mg/dL 01/20/2023 10:10 PM T [facility] Comment: <100 mg/dL Optimal 100-129 mg/dL Above Optimal 130-159 mg/dL Borderline High 160-189 mg/dL High >= 190 mg/dL Very High Cholesterol/HDL Ratio 2.2 0.0 - 5.0 01/20/2023 10:10 PM CDT [facility] Venipuncture / Unknown 01/20/2023 2:59 PM CDT 01/20/2023 8:31 PM CDT us Kadeem Aguayo MD LAB BLOOD ORDERABLES Linda l Result [facility] [address], [address] [place] [address] [facility] [address] [place] [address] * XR DEXA Axial Skeleton (02/17/2022 10:41 AM CDT) Anatomical Region Laterality Modality Hip, C-spine, T-spine, L-spine D igital Radiography 02/17/2022 11:0 9 AM CDT Impressions 02/17/2022 11:10 AM CDT IMPRESSION: According to the WHO classification, the patient's bone mineral density is osteopenia based on the lowest T-score among the PA spine and hips. 10 year risk for fracture Total 12% Hip 2.5% A follow-up bone density of the spine and hips is recommended every 2 to 5 years for postmenopausal patients with normal results, or every one year after initiation of therapy until the bone mineral density is stabilized or improved. (Patients on glucocorticoids may need more frequent monitoring.) Based on these results, a follow-up exam is recommended in 1-2 years ELECTRONICALLY SIGNED By: Clarisse Paz Date/Time 02/17/2022 11:10 AM Narrative 02/17/2022 11:10 AM CDT Ordering physician: KADEEM AGUAYO CLINICAL HISTORY: Postmenopausal TECHNIQUE: Bone mineral density/FRAX assessment performed using the [employer] bone density system. FINDINGS: RIGHT femoral bone density : 0.650 gm/cm2 Young adult {peak} BMD: 77% T-score {SD of peak BMD}: -1.8 Age-matched BMD: 105% Z-score {SD of age-matched BMD}: 0.3 The right femoral bone density demonstrates no confounding factors. LEFT femoral neck bone density: 0.675 gm/cm2 Young adult {peak} BMD: 80% T-score {SD of peak BMD}: -1.6 Age-matched BMD: 109% Z-score {SD of age-matched BMD}: 0.5 The femoral bone density demonstrates no confounding factors. The risk of osteoporotic fractures approximately doubles for each -1.0 SD (T- score) below peak BMD. The fracture risk does not include other risk factors independent of BMD such as previous osteoporotic fractures, smoking, family history of osteoporosis in a first-degree relative, body weight < 127 pounds, or illness that may predispose to falling. The WHO defines osteopenia as between -1.0 and -2.5 standard deviations (SD) below peak BMD (T-score) and osteoporosis as -2.5 SD or more below the peak BMD. Active therapeutic intervention is frequently recommended for patients with a T- score of <-2.0, or <-1.5 with other risk factors. Not everyone with low bone mineral density has osteoporosis. Osteomalacia and other metabolic bone disorders should also be considered where indicated. Patients who have osteoporosis should be evaluated for secondary causes that may contribute to bone loss, especially when associated with a Z-score of less than -2.0. Procedure Note Clarisse Paz MD - 02/17/2022 Ordering physician: KADEEM AGUAYO CLINICAL HISTORY: Postmenopausal TECHNIQUE: Bone mineral density/FRAX assessment performed using the [employer] density system. FINDINGS: RIGHT femoral bone density : 0.650 gm/cm2 Young adult {peak} BMD: 77% T-score {SD of peak BMD}: -1.8 Age-matched BMD: 105% Z-score {SD of age-matched BMD}: 0.3 The right femoral bone density demonstrates no confounding factors. LEFT femoral neck bone density: 0.675 gm/cm2 Young adult {peak} BMD: 80% T-score {SD of peak BMD}: -1.6 Age-matched BMD: 109% Z-score {SD of age-matched BMD}: 0.5 The femoral bone density demonstrates no confounding factors. The risk of osteoporotic fractures approximately doubles for each -1.0 SD(T- score) below peak BMD. The fracture risk does not include other riskfactors independent of BMD such as previous osteoporotic fractures,smoking, family history of osteoporosis in a first-degree relative, bodyweight < 127 pounds, or illness that may predispose to falling. The WHO defines osteopenia as between -1.0 and -2.5 standard deviations(SD) below peak BMD (T-score) and osteoporosis as -2.5 SD or more belowthe peak BMD. Active therapeutic intervention is frequently recommended for patientswith a T- score of <-2.0, or <-1.5 with other risk factors. Not everyonewith low bone mineral density has osteoporosis. Osteomalacia and othermetabolic bone disorders should also be considered where indicated.Patients who have osteoporosis should be evaluated for secondary causesthat may contribute to bone loss, especially when associated with aZ-score of less than -2.0. IMPRESSION: IMPRESSION: According to the WHO classification, the patient's bone mineral density isosteopenia based on the lowest T-score among the PA spine and hips. 10 year risk for fracture Total 12% Hip 2.5% A follow-up bone density of the spine and hips is recommended every 2 to 5years for postmenopausal patients with normal results, or every one yearafter initiation of therapy until the bone mineral density is stabilizedor improved. (Patients on glucocorticoids may need more frequentmonitoring.) Based on these results, a follow-up exam is recommended in 1-2 years ELECTRONICALLY SIGNED By: Clarisse Paz Date/Time 02/17/2022 11:10AM Kadeem Aguayo MD IM DXA ORDERABLES Final Result * MG Digital Screen Bilateral w wo CAD (02/17/2022 10:40 AM CDT) Anatomical Region Laterality Modality Breast Mammography 02/17/2022 10:2 4 AM CDT Impressions 02/17/2022 12:45 PM CDT IMPRESSION: BENIGN There is no mammographic evidence of malignancy. A one (1) year screening mammogram is recommended. Information is entered into a reminder system for a target due date for the next mammogram. The patient has been, or will be, notified of the results. Electronically Signed by: Clarisse Paz MD jody/[email or web address]:02/17/2022 12:45:00 Letter Sent: Normal Mammogram BI-RADS: 2 Benign Narrative 02/17/2022 12:45 PM CDT #[id number] - MG DIGITAL SCREEN BILATERAL W WO CAD BILATERAL DIGITAL SCREENING MAMMOGRAM WITH CAD: 02/17/2022 CLINICAL HISTORY: The patient is here for a screening mammogram. COMPARISON: Comparison is made to exam dated: 09/22/2019 mammogram - [facility] [place]. TECHNIQUE: Mammographic views were obtained using digital acquisition. Current study was also evaluated with a Computer Aided Detection (CAD) system. BREAST COMPOSITION CATEGORY: There are scattered areas of fibroglandular density in both breasts. FINDINGS: There are benign post operative findings left breast. No significant masses, calcifications, or other findings are seen in either breast. There has been no significant interval change. Procedure Note Clarisse Paz MD - 02/17/2022 #[id number] - MG DIGITAL SCREEN BILATERAL W WO CAD BILATERAL DIGITAL SCREENING MAMMOGRAM WITH CAD: 02/17/2022 CLINICAL HISTORY: The patient is here for a screening mammogram. COMPARISON: Comparison is made to exam dated: 09/22/2019 mammogram -[facility] [place]. TECHNIQUE: Mammographic views were obtained using digital acquisition.Current study was also evaluated with a Computer Aided Detection (CAD)system. BREAST COMPOSITION CATEGORY: There are scattered areas of fibroglandulardensity in both breasts. FINDINGS: There are benign post operative findings left breast. No significant masses, calcifications, or other findings are seen ineither breast. There has been no significant interval change. IMPRESSION: IMPRESSION: BENIGN There is no mammographic evidence of malignancy. A one (1) year screeningmammogram is recommended. Information is entered into a reminder system for a target due date forthe next mammogram. The patient has been, or will be, notified of the results. Electronically Signed by: Clarisse vera/peter:02/17/2022 12:45:00 Letter Sent: Normal Mammogram BI-RADS: 2 Benign us Kadeem Aguayo MD IMG MAMMOGRAPHY ORDERABLE S Final Result * Hepatitis C antibody (08/16/2018 12:09 PM CDT) Hepatitis C Virus Antibody Negative Negative 08/17/2018 12:01 AM CDT [facility] Comment: Hepatitis C serology shows no serologic evidence of exposure to Hepatitis C Virus at this time. Venipuncture / Unknown 08/16/2018 12:09 PM CDT 08/16/2018 10:52 PM CDT us Kadeem Aguayo MD LAB BLOOD ORDERABLES Linda l Result [facility] [address], [address] [place] [address] from Last 3 Months or Most Recently Relevant to Health Maintenance Insurance [facility] MEDICARE ADVANTAGE [facility] MEDICARE ADVANTAGE UHC MEDICARE ADVANTAGE UHC MEDICARE ADVANTAGE Advance Directives For more information, please contact: [phone] * Full Code (Latest Code Status on File) Date Activated Date Inactivated Comments 09/30/2023 4:31 PM 10/06/2023 7:57 PM * Full Code Date Activated Date Inactivated Comments 09/25/2023 10:22 PM 09/30/2023 4:31 PM * Full Code Date Activated Date Inactivated Comments 09/22/2023 10:40 AM 09/25/2023 10:00 PM * Full Code Date Activated Date Inactivated Comments 09/05/2023 6:07 PM 09/08/2023 3:07 PM * Full Code Date Activated Date Inactivated Comments 01/19/2020 6:49 PM 01/21/2020 1:51 PM Care Teams Benzol Operator Relationship Specialty Start Date End Date Kadeem Aguayo MD [address] [place], [place] [id number] PCP - General Family Medicine 10/27/23 Jose Manuel Garner MD [address] [place] [address] Consulting Physician Neurology 08/16/18 Carlo Vela MD [address] [place] [address] Consulting Physician Pain Medicine 08/16/18 Aurora Becerra, WAX BLEACHER, STRAIGHT KNIFE MACHINE CUTTER [address] [place] [address] Drive [address] [place] [address] Registered Nurse Family Medicine 03/25/20 Edmond Villarreal MD [address] [place] [address] [address] [place] [address] Nephrology 11/19/20 Gianni Dick MD [address] [place] [address] [address] [place] [address] Interventional Cardiology 11/19/20 Kishor Walker MD [address] [place] [address] [address] [place] [address] Pulmonary Disease 11/19/20 Mary Gomez MD [address] [place] [address] [address] [place] [address] Hematology and Oncology 12/31/21 Ritesh Meadows MD [address] [place], [place] [id number] Orthopedic Surgery 08/06/22 Jarad Booker DO [address] [place], [place] [id number] Bariatrics 06/24/23 Dc Huynh MD [address] [place] [address] [address] [place], [place] [id number] Gastroenterology 07/28/23 Fritz Rivera DO [address] [place] [address] [address] [place], [place] [id number] Family Medicine 09/13/23 Logan Babin DO [address] [place] [address] [address] [place] [address] Family Medicine 10/21/23 Elmer Lopez DO [address] [place], [place] [id number] Resident Family Medicine 12/07/23
--- OUTSIDE RECORDS SUMMARY | 2025-01-28 19:46 | XMS_ITS | Encounter Summary ---
Author Organization [facility] Address [address] [facility] [place] [address] Care Team Providers Care Centerless Grinder Operator Name Role Phone Jose Manuel Garner MD Unavailable Carlo Vela MD Unavailable [phone] Kadeem Aguayo MD Primary Care Provider [phone] Aurora Becerra APRN, FNP Unavailable Edmond Villarreal MD Unavailable [phone] Gianni Dikc MD Unavailable [phone] Kishor Walker MD Unavailable Mary Gomez MD Unavailable [phone] Ritesh Meadows MD Unavailable [phone] Dc Huynh MD Unavailable [phone] Jeannie Machado RN Unavailable [phone] Jarad Booker DO Unavailable Dc Huynh MD Unavailable [phone] Genna Vazquez DO Primary Care Provider [phone] Fritz Rivera DO Unavailable [phone] Logan Babin DO Unavailable [phone] Kadeem Aguayo MD Primary Care Provider [phone] Elmer Lopez DO Unavailable Jeannie Machado RN Unavailable [phone] Encounter Details Date Type Department Care Team (Late st Contact Info) Description 08/18/2023 Telephone [facility] - [place] [address] [facility] [address] [place] [address] Nancy Thorpe RN Social History Tobacco Use Types Packs/Day Years Used Date Smoking Tobacco: Former Cigarettes 2 35 0 11/1967 - 11/2002 Smokeless Tobacco: Never Alcohol Use Standard Drinks/Week Comments No 0 (1 standard drink = 0.6 oz pur e alcohol) AUDIT-C Answer Date Recorded Q1: How often do you have a drink containing alc ohol? Never 12/31/2021 Average Number of Drinks Not on file 022 Q3: How often do you have si x or more drinks on one occasion? Never 12/31/2021 Overall Financial Resource Strain (CARDIA) Answe r Date Recorded How hard is it for you to pa y for the very basics like food, housing, medical care, and heating? Not hard at all 12/31/2021 Hunger Vital Sign Answer Date Recorded Within the past 12 months, y ou worried that your food would run out before you got the money to buy more. Sometimes true Within the past 12 months, t he food you bought just didn't last and you didn't have money to get more. Never true PRAPARE - Transportation Answer Date Re corded In the past 12 months, has l ack of transportation kept you from medical appointments or from getting medications? No 12/16 In the past 12 months, has l ack of transportation kept you from meetings, work, or from getting things needed for daily living? No 12/31/2021 Depression Answer Date Recorded PHQ-2 Score 0 06/30/2022 Last PHQ-9 Score Not on file 06/30/2022 Comments No Sex and Gender Information Value [...] making decisions? Answer Entry Date Author No 12/31/2021 10:40 AM CDT documented in this encounter Miscellaneous Notes * Telephone Encounter - Nancy Thorpe RN - 08/18/2023 3:47 PM CDT Patient stated she would call back to let us know when she is ready to submit. documented in this encounter Plan of Treatment Upcoming Encounters Date Type Department Care Team (Late st Contact Info) Description 02/02/2025 9:40 AM CDT Office Visit [facility] [address] [place] [id number] Eloisa Mullen, [address] [place], [place] [id number] 08/22/2025 10:20 AM CLINICAL LABORATORY SCIENTIST Office Visit [facility] [address] [place] [address] Mary Moncada, [address] [place] [address] 09/17/2025 9:30 AM CLINICAL LABORATORY SCIENTIST Ancillary Procedure [facility] [address] [place] [address] 10/04/2025 11:15 AM CLINICAL LABORATORY SCIENTIST Office Visit [facility] [address] [place] [address] Gianni Dick MD [address] [place] [id number] documented as of this encounter Goals Goal [...] glutamate (MSG). MSG is sometimes added to Australian food and some canned foods. Check food [...] vegetable juices. Frozen vegetables in sauces. Salted Turkmen fries. Olives. Pickles. Relishes. Sauerkraut. Salsa. Meat [...] Billy fat. Other Potato and tortilla chips. [place]ison chips and puffs. Salted popcorn and pretzels. [...] 03/26/2003 Document Revised: 10/25/2015 Document Reviewed: 08/08/2014 [employer] Patient Education 2016 [employer] Weight Management Action Plan Weight No [...] with your provider about getting started. The retirement goal is to get to and stay [...] way up to at least 5,000 steps/day. [employer] and [employer] Now are examples free and fun apps that can help keep track of your activity. Try searching f [employer] in the joseph store for more ideas. [...] food that is high in fat. Examples: azeri fries, hamburgers, chicken nuggets, and pizza. Choose [...] sources: Book: Eat This, Not That Online: [employer]hub Google: Mediterranean diet documented as of this encounter Visit Diagnoses Not on filedocumented in this encounter Additional Health Concerns Infection Onset Date Last Indicated Resolved Time Respiratory Suspected 09/05/2023 09/05/20232022 7:48 PM CLINICAL LABORATORY SCIENTIST Respiratory Suspected 09/22/2023 09/22/20232022 9:32 AM CLINICAL LABORATORY SCIENTIST Mycoplasma Pneumoniae Suspec scott Comment:Antibodies order placed at [facility]. 09/22/2023 09/22/2023 09/27/2023 12:14 PM CLINICAL LABORATORY SCIENTIST Respiratory Suspected 10/21/2023 10/21/20232023 1:16 PM CLINICAL LABORATORY SCIENTIST Assessment Noted Time PHQ-9 Depression Total Score: 6 08/16/20 18 11:25 AM CDT A fall risk assessment has been complete d for the patient 11/19/2020 10:48 AM CLINICAL LABORATORY SCIENTIST A Body Mass Index follow-up plan has been documented for the patient 03/25/2018 8:55 AM CDT documented as of this encounter Care Teams Centerless Grinder Operator Relationship Specialty Start Date End Date Kadeem Aguayo MD [address] [facility] [address] [place] [address] PCP - General Family Medicine 08/24/19 08/26/23 Genna Vazquez DO [address] [place], [place] [id number] PCP - General Family Medicine 08/27/23 10/26/23 Kadeem Aguayo MD [address] [place] [address] PCP - General Family Medicine 10/27/23 Jose Manuel Garner MD [address] [place] [address] Consulting Physician Neurology 08/16/18 Carlo Vela MD [address] [place] [address] Consulting Physician Pain Medicine 08/16/18 Aurora Becerra APRN, PAINTER ORDNANCE [address] [place] [address] Drive [address] [place], [place] [phone] Registered Nurse Family Medicine 03/25/20 Edmond Villarreal MD [address] [place] [address] Dr Bab[address] [place], [place] [phone] Nephrology 11/19/20 Gianni Dick MD [address] [place] [address] Dr Babin [address] [place], [place] [id number] Interventional Cardiology 11/19/20 Kishor Walker MD [address] [place] [address] [address] [place] [address] Pulmonary Disease 11/19/20 Mary Gomez MD [address] [place] [address] [address] [place], [place] [phone] Hematology and Oncology 12/31/21 Ritesh Meadows MD [address] [place], [place] [phone] Orthopedic Surgery 08/06/22 Dc Huynh MD [address] [place] [address] [address] [place], [place] [phone] Gastroenterology 02/23/23 11/14/23 Jeannie Machado RN package checker Longitudinal Care Management 02/24/23 11/26/23 Jarad Booker DO [address] [place], [place] [phone] Bariatrics 06/24/23 Dc Huynh MD [address] [facility] [address] [place], [place] [phone] Gastroenterology 07/28/23 Fritz Rivera DO [address] [place], [place] [id number] Family Medicine 09/13/23 oLgan Babin, DO [address] [place], [place] [phone] Family Medicine 10/21/23 Elmer Lopez DO [address] [place], [place] [phone] Resident Family Medicine 12/07/23 Jeannie Machado, RN package checker Longitudinal Care Management 12/26/23 03/26/24 documented as of this encounter
--- OUTSIDE RECORDS SUMMARY | 2025-01-28 19:46 | XMS_ITS | Clinical Summary ---
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 Gender Identity Not on file Sexual Orientation Not on file Last Filed Vital Signs Vital Sign Reading Time Taken Comments Blood Pressure 124/73 08/31/2023 11:00 AM PACKER FUSER Pulse 94 08/31/2023 11:00 AM PACKER FUSER Temperature 36.3 C (97.4 F) 08/31/2023 11:00 AM PACKER FUSER Respiratory Rate 18 08/31/2023 11:00 AM PACKER FUSER Oxygen Saturation 98% 01/16/2020 4:45 PM CDT [...] topic Insurance MEDICARE PART A AND B [facility] Care Teams Turbine Attendant Relationship Specialty Start Date End Date Kadeem Aguayo [address] [place] [phone] PCP - General 3/31/20
--- OUTSIDE RECORDS SUMMARY | 2025-01-28 19:46 | XMS_ITS | CCD ---
Author Name Interface, [id number] Address [place] [address] Organization [facility] Address [address] [place] [address] Care Team Providers Care Ultrasonic Welding Machine Operator Name Role Phone Mary Gomez Unavailable Unavailable Care Plan Reason for Visit Encounters Functional Status Diagnostic Results Medications Problems Procedures Social History Vital Signs
--- OUTSIDE RECORDS SUMMARY | 2025-01-28 19:46 | XMS_ITS ---
Author Name Interface, [id number] lity Address [place] [address] Organization [facility] Address [place] [address] Care Team Providers Care Photographic Lithographer Name Role Phone Luis Tucker Unavailable Unavailable [...] LABORDER SPEP with immuno fixation 04/26/2024 LABORDER Ecru/lambda wit h K/L ratio, free, serum (mg/dL) 04/26/2024 LABORDER CBC w/auto diff with reflex 11/07/2024 LABORDER SPEP with immuno fixation 11/07/2024 LABORDER CBC w/auto diff with reflex 11/07/2024 LABORDER Ecru/lambda wit h K/L ratio, free, serum (mg/dL) 11/07/2024 LABORDER CMP 11/07/2024 LABORDER Iron, TIBC, Ferr itin panel 05/16/2025 LABORDER CBC w/auto diff with reflex 05/16/2025 LABORDER SPEP with immuno fixation 05/16/2025 LABORDER CMP 05/16/2025 LABORDER Ecru/lambda wit h K/L ratio, free, serum (mg/dL) [...] FINAL Mary Palanisa my [facility] [place] [address] [address].[place] [address] 04/26 SPEP with immun ofixa tion NOHEMI inter preta tion Results Below Normal pattern. No monoclona l proteins detected. FINAL Mary Pal[facility] [place] [address] [address] 12.[place] [address] 04/26 SPEP with immun ofixa tion Album in, SPE g/dL 3.8 4.8 3.6 Low FINAL Mary Pal[facility]isa [facility] [place] [address] [address] 12.[place] [address] 04/26 SPEP with immun ofixa tion Alpha -1 globu ashley g/dL 0.2 0.3 0.3 FINAL Mary Palanisa [facility] [place] [address] [address] 12.[place] [address] 04/26 SPEP with immun ofixa tion Alpha -2 globu ashley g/dL 0.5 0.9 0.8 FINAL Mary Palanisa [facility] [place] [address] Building 12[place] [address] 04/26 SPEP with immun ofixa tion Beta- 1 g/dL 0.4 0.6 0.5 FINAL Mary Palanisa [facility] [place] [address] [address] 12[place] [address] 04/26 SPEP with immun ofixa tion Beta- 2 g/dL 0.2 0.5 0.4 FINAL Mary Pal[facility]isa [facility] [place] [address] 12.[place] [address] 04/26 SPEP with immun ofixa tion Gamma globu ashley g/dL 0.8 1.7 1.5 FINAL Mary Chisa lilia [facility] [place] [address] [place] 12[place] [address] 04/26 SPEP with immun ofixa tion SPE inter preta tion Results Below Abnormal appearing globulin peak, possibly monoclona l. If indicated , recommend immunotyp ing (Test Code: IMTYPB) for further evaluatio n. If the SPEP wasordere d with reflex, immunotyp ing will be resulted upon completio n. FINAL Mary Johnanisa [facility]2 [address] [address] [address] [address] 04/26 Ecru /rodriguez da with K/L ratio , free, serum (mg/d L) Ecru light chain , free mg/L 3.3 19.4 86.9 High FINAL Mary Johnanisa lilia [facility] [place] [address] [place] 12[place] [address] 04/26 Ecru /rodriguez da with K/L ratio , free, serum (mg/d L) Lambd a light chain , free mg/L 5.7 26.3 37.3 High FINAL Mary Johnanisa lilia [facility].[address] [place] [address] [place] 12[place] [address] 04/26 Ecru /rodriguez da with K/L ratio , free, [...] Mary Palanisa [facility]2 [address] [address] [address] 12[place] [address] 04/26 CBC w/aut o diff with refle x WBC 10^3/u L 4.8 10.8 6.4 FINAL Mary Palanisa my Whole Blood [facility].[address] [facility] [address] [place] [address] CLIA#45D [id number] 04/26 CBC w/aut o diff with refle x RBC 10^6/u L 4.2 5.4 4.06 Low FINAL Mary Palanisa my Whole Blood [facility].[address] [facility] e [address] [place] [address] CLIA#45D [id number] 04/26 CBC w/aut o diff with refle x HGB g/dL 12.0 16.0 11.1 Low FINAL Mary Palanisa my Whole Blood [facility].[address] [facility] [address] [place] [address] CLIA#45D [id number] 04/26 CBC w/aut o diff with refle x HCT % 37.0 47.0 37.0 FINAL Mary Palanisa my Whole Blood [facility].[address] [facility] [address] [place] [address] CLIA#45D [id number] 04/26 CBC w/aut o diff with refle x MCV fL 81.0 99.0 91.1 FINAL Mary Palanisa my Whole Blood [facility].[address] [facility] [address] [place] [address] CLIA#45D [id number] 04/26 CBC w/aut o diff with refle x MCH pg 27.0 31.0 27.3 FINAL Mary Palanisa my Whole Blood [facility].[address] [facility] e [address] [place] [address] CLIA#45D [id number] 04/26 CBC w/aut o diff with refle x MCHC g/dL 33.0 37.0 30.0 Low FINAL Mary Palanisa my Whole Blood [facility].[address] [facility] [address] [place] [address] CLIA#45D [id number] 04/26 CBC w/aut o diff with refle x PLT 10^3/u L 130.0 400.0 256 FINAL Mary Palanisa my Whole Blood [facility].[address] [facility] [address] [place] [address] CLIA#45D [id number] 04/26 CBC w/aut o diff with refle x MPV fL 9.4 12.3 10.7 FINAL Mary Palanisa my Whole Blood [facility].[address] [facility] [address] [place] [address] CLIA#45D [id number] 04/26 CBC w/aut o diff with refle x RDW % 10.5 14.5 15.9 High FINAL Mary Palanisa my Whole Blood [facility].[address] [facility] [address] [place] [address] CLIA#45D [id number] 04/26 CBC w/aut o diff with refle x Jordy % % 40.0 77.0 56.0 FINAL Mary Palanisa my Whole Blood [facility].[address] [facility] [address] [place] [address] CLIA#45D [id number] 04/26 CBC w/aut o diff with refle x Jordy # (ANC) 10^3/u L 1.5 6.5 3.57 FINAL Mary Palanisa my Whole Blood [facility].[address] [facility] e [address] [place] [address] CLIA#45D [id number] 04/26 CBC w/aut o diff with refle x IG % % 0.0 0.5 0.3 FINAL Mary Palanisa my Whole Blood [facility].[address] [facility] it e [address] [place] [address] CLIA#45D [id number] 04/26 CBC w/aut o diff with refle x IG # 10^3/u L 0.0 0.03 0.02 FINAL Mary Palanisa my Whole Blood [facility].[address] [facility] it e [address] [place] [address] CLIA#45D [id number] 04/26 CBC w/aut o diff with refle x LY % % 15.0 41.0 19.6 FINAL Mary Palanisa my Whole Blood [facility].[address] [facility] it e [address] [place] [address] CLIA#45D [id number] 04/26 CBC w/aut o diff with refle x LY # 10^3/u L 1.2 3.4 1.25 FINAL Mary Palanisa my Whole Blood [facility].[address] [facility] it e [address] [place] [address] CLIA#45D [id number] 04/26 CBC w/aut o diff with refle x MO % % 3.0 11.0 9.7 FINAL Mary Palanisa my Whole Blood [facility].[address] [facility] it e [address] [place] [address] CLIA#45D [id number] 04/26 CBC w/aut o diff with refle x MO # 10^3/u L 0.0 1.0 0.62 FINAL Mary Palanisa my Whole Blood [facility].[address] [facility] it e [address] [place] [address] CLIA#45D [id number] 04/26 CBC w/aut o diff with refle x EO % % 0.0 3.0 13.0 High FINAL Mary Palanisa my Whole Blood [facility].[address] [facility] it e [address] [place] [address] CLIA#45D [id number] 04/26 CBC w/aut o diff with refle x EO # 10^3/u L 0.0 0.3 0.83 High FINAL Mary Palanisa my Whole Blood [facility].[address] [facility] [address] [place] [address] CLIA#45D [id number] 04/26 CBC w/aut o diff with refle x BA % % 0.0 1.0 1.4 High FINAL Mary Palanisa my Whole Blood [facility].[address] [facility] [address] [place] [address] CLIA#45D [id number] 04/26 CBC w/aut o diff with refle x BA # 10^3/u L 0.0 0.2 0.09 FINAL Mary Palanisa my Whole Blood [facility].[address] [facility] [address] [place] [address] CLIA#45D [id number] 04/26 CBC w/aut o diff with refle x NRBC, % % 0.0 0.2 0.0 FINAL Mary Palanisa my Whole Blood [facility].[address] [facility] [address] [place] [address] CLIA#45D [id number] 04/26 CBC w/aut o diff with refle x NRBC, absol jose, x 10^3/ uL 10^3/u L 0.0 0.01 0.00 FINAL Mary Palanisa my Whole Blood [facility].[address] [facility] [address] [place] [address] CLIA#45D [id number] 04/26 CMP Sodiu m mmol/L 136.0 145.0 140 FINAL Mary Palanisa my [facility] [address] [place] [address] CLIA#45D [id number] 04/26 CMP Potas sium mmol/L 3.5 5.1 4.9 FINAL Amry Palanisa my Plasma [facility].[address] [facility] [address] [place] [address] CLIA#45D [id number] 04/26 CMP Chlor loly mmol/L 97.0 107.0 104 FINAL Mary Palanisa my Plasma [facility].52 [address] [facility] [address] [place] [address] CLIA#45D [id number] 04/26 CMP CO2 mmol/L 21.0 32.0 26.0 FINAL Mary Palanisa my Plasma [facility].52 [address] [facility] [address] [place] [address] CLIA#45D [id number] 04/26 CMP Gluco se mg/dL 74.0 106.0 120 High FINAL Mary Palanisa my Plasma [facility].[address] [facility] [address] [place] [address] CLIA#45D [id number] 04/26 CMP BUN mg/dL 7.0 18.0 37 High FINAL Mary Palanisa my Plasma [facility].[address] [facility] [address] [place] [address] CLIA#45D [id number] 04/26 CMP Creat inine , mg/dL mg/dL 0.55 1.3 1.42 High FINAL Mary Palanisa my Plasma [facility].52 [address] [facility] [address] [place] [address] CLIA#45D [id number] 04/26 CMP GFR estim ate mil/mi n/1.73 m2 38 Low Result based on the eGFR 2020 calculati on.60-89 mL/min/1. 73m^2 without kidney damage may be normal.60 -89 mL/min/1. 73m^2 for 3 months or more, along with kidney damage, may indicate early kidney disease.C alculatio n modified to the 2020 formula effective 01/16/23. FINAL Mary Palanisa my Plasma [facility].52 [address] [facility] [address] [place] [address] CLIA#45D [id number] 04/26 CMP BUN/C reati nine ratio 6.0 25.0 26.1 High FINAL Mary Palanisa my Plasma [facility].[address] [facility] [address] [place] [address] CLIA#45D [id number] 04/26 CMP Album in g/dL 3.4 5.0 3.2 Low FINAL Mary Palanisa my Plasma [facility].[address] [facility] [address] [place] [address] CLIA#45D [id number] 04/26 CMP Calci um mg/dL 8.5 10.1 9.1 FINAL Mary Palanisa my Plasma [facility].52 [address] [facility] [address] [place] [address] CLIA#45D [id number] 04/26 CMP Total prote in g/dL 6.4 8.2 7.8 FINAL Mary Palanisa my Plasma [facility].[address] [facility] [address] [place] [address] CLIA#45D [id number] 04/26 CMP Globu ashley g/dL 2.2 4.2 4.6 High FINAL Mary Palanisa my Plasma [facility].[address] [facility] [address] [place] [address] CLIA#45D [id number] 04/26 CMP A/G ratio 0.8 2.0 0.7 Low FINAL Mary Palanisa my Plasma [facility].[address] [facility] [address] [place] [address] CLIA#45D [id number] 04/26 CMP Bilir ubin, total mg/dL 0.2 1.0 0.5 FINAL Mary Palanisa my [facility].[address] [facility] [address] [place] [address] CLIA#45D [id number] 04/26 CMP Alkal ine phosp hatas e U/L 46.0 116.0 93 FINAL Mary Palanisa my Plasma [facility].[address] [facility] [address] [place] [address] CLIA#45D [id number] 04/26 CMP AST/S GOT U/L 15.0 37.0 17 FINAL Mary Palanisa my Plasma [facility].[address] [facility] [address] [place] [address] CLIA#45D [id number] 04/26 CMP ALT/S GPT U/L 14.0 59.0 26 FINAL Mary Palanisa my [facility].[address] [facility] [address] [place] [address] CLIA#45D [id number] 04/26 TIBC and perce nt sat w/ iron panel Iron ug/dL 65.0 175.0 30.0 Low FINAL Mary Palanisa my Serum [facility].[address] [facility] [address] [place] [address] CLIA#45D [id number] 04/26 TIBC and perce nt sat w/ iron panel TIBC ug/dL 250.0 450.0 283.0 FINAL Mary Palanisa my Serum [facility].[address] [facility] [address] [place] [address] CLIA#45D [id number] 04/26 TIBC and perce nt sat w/ iron panel Iron, % satur ation % 15.0 50.0 11 Low FINAL Mary Palanisa my Serum [facility].[address] [facility] [address] [place] [address] CLIA#45D [id number] 04/26 Juliet tin panel Juliet tin ng/mL 8.0 252.0 266 High FINAL Mary Palanisa my Serum [facility].[address] [facility] [address] [place] [address] CLIA#45D [id number] 11/07 Ecru /rodriguez da with K/L ratio , free, serum (mg/d L) Ecru light chain , free mg/L 3.3 19.4 73.5 High FINAL Luis [facility] [place] [address] [address] 12[place] [address] 11/07 Ecru /rodriguez da with K/L ratio , free, serum (mg/d L) Lambd a light chain , free mg/L 5.7 26.3 35.8 High FINAL Luis [facility] [place] [address] [address] 12[place] [address] 11/07 Ecru /rodriguez da with K/L ratio , free, [...] . FINAL Luis Tucker [facility] [place] [address] [address] 12[place] [address] 11/07 SPEP with immun ofixa tion Total prote in g/dL 6.1 8.1 6.4 FINAL Luis [facility] [place] [address] [address] 12[place] [address] 11/07 SPEP with immun ofixa tion NOHEMI inter preta tion Results Below Normal pattern. No monoclona l proteins detected. FINAL Luis Tucker [facility] [place] [address] [address] 12[place] [address] 11/07 SPEP with immun ofixa tion Album in, SPE g/dL 3.8 4.8 3.4 Low FINAL Luis [facility] [place] [address] [address] 12[place] [address] 11/07 SPEP with immun ofixa tion Alpha -1 globu ashley g/dL 0.2 0.3 0.3 FINAL [facility]2 [address] [address] [address] 12[place] [address] 11/07 SPEP with immun ofixa tion Alpha -2 globu ashley g/dL 0.5 0.9 0.7 FINAL [facility]2 [address] [address] [address] 12[place] [address] 11/07 SPEP with immun ofixa tion Beta- 1 g/dL 0.4 0.6 0.4 FINAL [facility]2 [address] [address] [address] 12[place] [address] 11/07 SPEP with immun ofixa tion Beta- 2 g/dL 0.2 0.5 0.4 FINAL [facility]2 [address] [address] [address] 12[place] [address] 11/07 SPEP with immun ofixa tion Gamma globu ashley g/dL 0.8 1.7 1.1 FINAL [facility]2 [address] [address] [address] 12[place] [address] 11/07 SPEP with immun ofixa tion SPE inter preta tion Results Below Abnormal appearing gamma globulin peak, possibly monoclona l. If indicated ,recommen d immunotyp ing (Test Code: IMTYPB) for further evaluatio n. If the SPEPwas ordered with reflex, immunotyp ing will be resulted upon completio n. FINAL [facility]2 [address] [address] [place] [address] [address] 11/07 Juliet tin panel Juliet tin ng/mL 8.0 252.0 228 FINAL [facility].[address] [facility] [address] [place] [address] CLIA#45D [id number] 11/07 TIBC and perce nt sat w/ iron panel Iron ug/dL 50.0 170.0 60.0 FINAL [facility].[address] [facility] [address] [place] [address] CLIA#45D [id number] 11/07 TIBC and perce nt sat w/ iron panel TIBC ug/dL 250.0 450.0 311.0 FINAL [facility].52 [address] [facility] [address] [place] [address] CLIA#45D [id number] 11/07 TIBC and perce nt sat w/ iron panel Iron, % satur ation % 15.0 50.0 19 FINAL [facility].52 [address] [facility] [address] [place] [address] CLIA#45D [id number] 11/07 CMP Chlor loly mmol/L 97.0 107.0 106 FINAL [facility].52 [address] [facility] [address] [place] [address] CLIA#45D [id number] 11/07 CMP CO2 mmol/L 21.0 32.0 28.0 FINAL [facility].52 [address] [facility] [address] [place] [address] CLIA#45D [id number] 11/07 CMP Gluco se mg/dL 74.0 106.0 74 FINAL [facility].52 [address] [facility] [address] [place] [address] CLIA#45D [id number] 11/07 CMP BUN mg/dL 7.0 18.0 35 High FINAL [facility].52 [address] [facility] [address] [place] [address] CLIA#45D [id number] 11/07 CMP Creat inine , mg/dL mg/dL 0.55 1.3 1.41 High FINAL [facility].52 [address] [facility] [address] [place] [address] CLIA#45D [id number] 11/07 CMP GFR estim ate mil/mi n/1.73 m2 38 Low Result based on the eGFR 2020 calculati on.60-89 mL/min/1. 73m^2 without kidney damage may be normal.60 -89 mL/min/1. 73m^2 for 3 months or more, along with kidney damage, may indicate early kidney disease.C alculatio n modified to the 2020 formula effective 01/16/23. FINAL [facility].[address] [facility] [address] [place] [address] CLIA#45D [id number] 11/07 CMP BUN/C reati nine ratio 6.0 25.0 24.8 FINAL [facility].52 [facility] [address] [place] [address] CLIA#45D [id number] 11/07 CMP Calci um mg/dL 8.5 10.1 9.7 FINAL [facility].[address] [facility] [address] [place] [address] CLIA#45D [id number] 11/07 CMP Album in g/dL 3.4 5.0 3.1 Low FINAL [facility].[address] [facility] [address] [place] [address] CLIA#45D [id number] 11/07 CMP Total prote in g/dL 6.4 8.2 7.3 FINAL [facility].[address] [facility] [address] [place] [address] CLIA#45D [id number] 11/07 CMP Globu ashley g/dL 2.2 4.2 4.2 FINAL [facility].[address] [facility] [address] [place] [address] CLIA#45D [id number] 11/07 CMP A/G ratio 0.8 2.0 0.7 Low FINAL [facility].[address] [facility] [address] [place] [address] CLIA#45D [id number] 11/07 CMP Bilir ubin, total mg/dL 0.2 1.0 0.6 FINAL [facility].52 [facility] [address] [place] [address] CLIA#45D [id number] 11/07 CMP Alkal ine phosp hatas e U/L 46.0 116.0 100 FINAL [facility].52 [facility] [address] [place] [address] CLIA#45D [id number] 11/07 CMP AST/S GOT U/L 15.0 37.0 26 FINAL [facility].52 [facility] [address] [place] [address] CLIA#45D [id number] 11/07 CMP ALT/S GPT U/L 14.0 59.0 27 FINAL [facility].52 [facility] [address] [place] [address] CLIA#45D [id number] 11/07 CMP Sodiu m mmol/L 136.0 145.0 143 FINAL [facility].52 [facility] [address] [place] [address] CLIA#45D [id number] 11/07 CMP Potas sium mmol/L 3.5 5.1 4.3 FINAL [facility].52 [facility] [address] [place] [address] CLIA#45D [id number] 11/07 CBC w/aut o diff with refle x WBC 10^3/u L 4.8 10.8 4.6 Low FINAL [facility] Blood [facility].[address] [facility] [address] [place] [address] CLIA#45D [id number] 11/07 CBC w/aut o diff with refle x RBC 10^6/u L 4.2 5.4 4.23 FINAL [facility] Whole Blood [facility].[address] [facility] [address] [place] [address] CLIA#45D [id number] 11/07 CBC w/aut o diff with refle x HGB g/dL 12.0 16.0 12.4 FINAL Luis Tucker Whole Blood [facility].[address] [facility] it e [address] [place] [address] CLIA#45D [id number] 11/07 CBC w/aut o diff with refle x HCT % 37.0 47.0 40.8 FINAL Luis Tucker Whole Blood [facility].[address] [facility] it e [address] [place] [address] CLIA#45D [id number] 11/07 CBC w/aut o diff with refle x MCV fL 81.0 99.0 96.5 FINAL Luis Tucker Whole Blood [facility].[address] [facility] [address] [place] [address] CLIA#45D [id number] 11/07 CBC w/aut o diff with refle x MCH pg 27.0 31.0 29.3 FINAL Luis Tucker Whole Blood [facility].[address] [facility] [address] [place] [address] CLIA#45D [id number] 11/07 CBC w/aut o diff with refle x MCHC g/dL 33.0 37.0 30.4 Low FINAL Luis Tucker Whole Blood [facility].[address] [facility] it e [address] [place] [address] CLIA#45D [id number] 11/07 CBC w/aut o diff with refle x PLT 10^3/u L 130.0 400.0 216 FINAL Luis Tucker Whole Blood [facility].[address] [facility] [address] [place] [address] CLIA#45D [id number] 11/07 CBC w/aut o diff with refle x MPV fL 9.4 12.3 10.3 FINAL Luis Tucker Whole Blood [facility].[address] [facility] [address] [place] [address] CLIA#45D [id number] 11/07 CBC w/aut o diff with refle x RDW % 10.5 14.5 14.0 FINAL Luis Tucker Whole Blood [facility].[address] [place] [address] CLIA#45D [id number] 11/07 CBC w/aut o diff with refle x Jordy % % 40.0 77.0 59.7 FINAL Luis Tucker Whole Blood [facility].[address] [place] [address] CLIA#45D [id number] 11/07 CBC w/aut o diff with refle x Jordy # (ANC) 10^3/u L 1.5 6.5 2.73 FINAL Luis Tucker Whole Blood [facility].[address] [facility] [address] [place] [address] CLIA#45D [id number] 11/07 CBC w/aut o diff with refle x IG % % 0.0 0.5 0.4 FINAL Luis Tucker Whole Blood [facility].[address] [facility] [address] [place] [address] CLIA#45D [id number] 11/07 CBC w/aut o diff with refle x IG # 10^3/u L 0.0 0.03 0.02 FINAL Luis Tucker [facility].52 [address] [facility] [address] [place] [address] CLIA#45D [id number] 11/07 CBC w/aut o diff with refle x LY % % 15.0 41.0 19.0 FINAL Luis Tucker Whole Blood [facility].[address] [place] [address] CLIA#45D [id number] 11/07 CBC w/aut o diff with refle x LY # 10^3/u L 1.2 3.4 0.87 Low FINAL Luis Tucker Whole Blood [facility].[address] [place] [address] CLIA#45D [id number] 11/07 CBC w/aut o diff with refle x MO % % 3.0 11.0 9.8 FINAL Luis Brown Whole Blood [facility].[address] [facility] [address] [place] [address] CLIA#45D [id number] 11/07 CBC w/aut o diff with refle x MO # 10^3/u L 0.0 1.0 0.45 FINAL Luis Brown Whole Blood [facility].[address] [facility] [address] [place] [address] CLIA#45D [id number] 11/07 CBC w/aut o diff with refle x EO % % 0.0 3.0 9.6 High FINAL Luis Brown Whole Blood [facility].[address] [facility] [address] [place] [address] CLIA#45D [id number] 11/07 CBC w/aut o diff with refle x EO # 10^3/u L 0.0 0.3 0.44 High FINAL Luis Brown Whole Blood [facility].[address] [facility] [address] [place] [address] CLIA#45D [id number] 11/07 CBC w/aut o diff with refle x BA % % 0.0 1.0 1.5 High FINAL Luis Brown Whole Blood [facility].[address] [facility] [address] [place] [address] CLIA#45D [id number] 11/07 CBC w/aut o diff with refle x BA # 10^3/u L 0.0 0.2 0.07 FINAL Luis Brown Whole Blood [facility].[address] [facility] [address] [place] .[place] [address] CLIA#[id number] 11/07 CBC w/aut o diff with refle x NRBC, % % 0.0 0.2 0.0 FINAL Luis Brown Whole Blood [facility].[address] [facility] [address] [place] [address] CLIA#[id number] 11/07 CBC w/aut o diff with refle x NRBC, absol jose, x 10^3/ uL 10^3/u L 0.0 0.01 0.00 FINAL Luis Tucker Whole Blood [facility].[address] [facility] [address] [place] [address] CLIA#[id number] Medications Date Name Route Dose Frequency Instructions [...] Section * REYES HemOnc Follow Up - [address] [address] P:?? PATIENT:??JAMESON DOTSON :??1945 Date of Service:??04/26/2024 [...] insufficiency and proteinuria.?? 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 * Spironolactone Oral 25 mg tablet 1 TABLET(S) PO daily * Omeprazole Oral Delayed Release Tablet 20 mg tablet,delayed release (DR/EC) 1 TABLET(S), ENTERIC COATED PO daily * Paroxetine Oral 40 mg tablet 1 TABLET(S) PO daily * Aspirin Oral 81 mg 1 TABLET(S) PO daily * Farxiga (Dapagliflozin Oral) 10 mg tablet daily * Qcgnuxzrlvx-Hoamtsury-Uggwypah Inhaler 100 mcg-62.5 mcg-25 mcg/actuation 100-62.5-25 mcg [...] adult children.?? 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 [...] been missed during proofreading. ??Please interpret accordingly. uLis Tucker PA-C Send copy of note to: MD Edmond Hicks MD. Electronically signed by Luis Tucker PA-C 04/30/2024 18:09 CDT
--- OUTSIDE RECORDS SUMMARY | 2025-01-28 19:46 | XMS_ITS | Encounter Summary ---
Author Organization [facility] Address [address] [facility] [place] [address] Care Team Providers Care Screen Printing Machine Operator Helper Name Role Phone Jose Manuel Garner MD Unavailable Carlo Vela MD Unavailable [phone] Aurora Becerra APRN, FNP Unavailable Edmond Villarreal MD Unavailable [phone] Gianni Dick MD Unavailable [phone] Kishor Walker MD Unavailable Mary Gomez MD Unavailable [phone] Ritesh Meadows MD Unavailable [phone] Jeannie Machado RN Unavailable [phone] Jarad Booker DO Unavailable Dc Huynh MD Unavailable [phone] Frtiz Rivera DO Unavailable [phone] Logan Babin DO Unavailable [phone] Kadeem Aguayo MD Primary Care Provider [phone] Elmer Lopez DO Unavailable Jeannie Machado RN Unavailable [phone] Reason for Referral * Specialty Diagnoses / Procedures Referred By Contaditya t Referred To Contact [facility] Res[facility] - [place] [address] [place] [address] Phone: tel: Referral ID Status Reason Start Date Expiration Date Visits Re quested Visits Authorized GRATED LOGISTICS PROGRAMS DIRECTOR Encounter Details Date Type Department Care Team (Late st Contact Info) Description 11/23/2023 Orders Only [facility] [address] [place] [address] Social History Tobacco Use Types Packs/Day Years Used Date Smoking Tobacco: Former Cigarettes 2 35 0 11/1967 - 11/2002 Smokeless Tobacco: Never Alcohol Use Standard Drinks/Week Comments No 0 (1 standard drink = 0.6 oz pur e alcohol) [facility] Utilities Answer Date Recorded In the past 12 months has th e electric, gas, oil, or water company threatened to shut off services in your home? No 09/26/2023 AUDIT-C Answer Date Recorded Q1: How often do you have a drink containing alcohol? Never 08/27/2023 Q2: How many drinks containi ng alcohol do you have on a typical day when you are drinking? Patient does not drink Q3: How often do you have si x or more drinks on one occasion? Never 08/27/2023 Overall Financial Resource Strain (CARDIA) Answe r Date Recorded How hard is it for you to pa y for the very basics like food, housing, medical care, and heating? Not hard at all 09/28/2023 Hunger Vital Sign Answer Date Recorded Within the past 12 months, y ou worried that your food would run out before you got the money to buy more. Never true 09/28/20 23 Within the past 12 months, t he food you bought just didn't last and you didn't have money to get more. Never true 09/28/2023 PRAPARE - Transportation Answer Date Re corded In the past 12 months, has l ack of transportation kept you from medical appointments or from getting medications? No 09/17 In the past 12 months, has l ack of transportation kept you from meetings, work, or from getting things needed for daily living? No 09/28/2023 Housing Stability Vital Sign Answer Silvestre e Recorded In the last 12 months, was t here a time when you were not able to pay the mortgage or rent on time? No 09/26/2023 Number of Places Lived in the Last Year Not on f ile 09/26/2023 In the last 12 months, was t here a time when you did not have a steady place to sleep or slept in a penitentiary (including now)? No 09/26/2023 Depression Answer Date Recorded PHQ2 Screening score 0 11/06/2023 Last PHQ-9 Score Not on file 11/06/2023 Interpersonal Safety Answer Date Record ed Feels UN-safe at Home or Work/School no 11/06/2023 Comments No Sex and Gender Information Value [...] Entry Date Author No 08/27/2023 8:12 AM INTEGRATED LOGISTICS PROGRAMS DIRECTOR documented in this encounter Plan of Treatment Upcoming Encounters Date Type Department Care Team (Late st Contact Info) Description 02/02/2025 9:40 AM CDT Office Visit [facility] - [facility] [address] [place] [address] Eloisa Mullen, DO [address] [place], [place] [id number] 08/22/2025 10:20 AM INTEGRATED LOGISTICS PROGRAMS DIRECTOR Office Visit [facility] - [facility] [address] [place], [place] [id number] Mary Moncada, DO [address] [place], [place] [id number] 09/17/2025 9:30 AM INTEGRATED LOGISTICS PROGRAMS DIRECTOR Ancillary Procedure [facility] [address] [address] 10/04/2025 11:15 AM INTEGRATED LOGISTICS PROGRAMS DIRECTOR Office Visit [facility] [address] [address] Gianni Dick MD [address] [address] documented as of this encounter Goals Goal Patient Goal Type Associated Problems Recent Progress Patient-Stated? 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 MSG is sometimes added to Ethiopian food and some canned foods. Check food [...] vegetable juices. Frozen vegetables in sauces. Salted Macedonian fries. Olives. Pickles. Relishes. Sauerkraut. Salsa. Meat [...] Billy fat. Other Potato and tortilla chips. [place] chips and puffs. Salted popcorn and pretzels. [...] 03/26/2003 Document Revised: 10/25/2015 Document Reviewed: 08/08/2014 [employer] Interactive Patient Education 2016 [employer]. Weight Management Action Plan Weight No Hipolito [...] with your provider about getting started. The residential goal is to get to and stay [...] way up to at least 5,000 steps/day. Motive Power system and [place] are examples free and fun apps that can help keep track of your activity. Try searching f [employer] in the joseph store for more ideas. [...] food that is high in fat. Examples: martiniquais fries, hamburgers, chicken nuggets, and pizza. Choose [...] sources: Book: Eat This, Not That Online: Ko[employer]: Mediterranean diet documented as of this encounter Procedures Procedure Name Priority Date/Time Associated Diagnosis Comments AMB F2F REFERRAL TO HOME HEALTH Routine 11/17/2023 3:00 PM INTEGRATED LOGISTICS PROGRAMS DIRECTOR documented in this encounter Results * Amb Referral to Home Health-Face to Face (11/17/2023 3:00 PM INTEGRATED LOGISTICS PROGRAMS DIRECTOR) us Him Scanning Provider OUTPATIENT REFERRAL ORDERA BLES Final Result documented in this encounter Visit Diagnoses Not on filedocumented in this encounter Additional Health Concerns Assessment Noted Time PHQ-9 Depression Total Score: 12 023 10:47 AM INTEGRATED LOGISTICS PROGRAMS DIRECTOR A fall risk assessment has been complete d for the patient 11/19/2020 10:48 AM INTEGRATED LOGISTICS PROGRAMS DIRECTOR A Body Mass Index follow-up plan has been documented for the patient 03/25/2018 8:55 AM CDT documented as of this encounter Care Teams Screen Printing Machine Operator Helper Relationship Specialty Start Date End Date Kadeem Aguayo MD [address] [facility] [address] [place] [address] PCP - General Family Medicine 10/27/23 Jose Manuel Garner MD [address] [facility] [address] [place] [address] Consulting Physician Neurology 08/16/18 Carlo Vela MD [address] [place], [place] [phone] Consulting Physician Pain Medicine 08/16/18 Aurora Becerra APRN, ROLLING DOWN MACHINE OPERATOR [address] [place] [address] Drive [address] [place], [place] [phone] Registered Nurse Family Medicine 03/25/20 Edmond Villarreal MD [address] [place] [address] Dr [address] [place], [place] [phone] Nephrology 11/19/20 Gianni Dick MD [address] [place] [address] Dr [address] [place], [place] [phone] Interventional Cardiology 11/19/20 Kishor Walker MD [address] [place] [address] [address] [place], [place] [phone] Pulmonary Disease 11/19/20 Mary Gomez MD [address] [place] [address] Dr [address] [place], [place] [phone] Hematology and Oncology 12/31/21 Ritesh Meadows MD [address] [place], [place] [phone] Orthopedic Surgery 08/06/22 Jeannie Machado, RN derrick boat lever operator Longitudinal Care Management 02/24/23 11/26/23 Jarad Booker DO [address] [facility] [address] [place] [address] Bariatrics 06/24/23 Dc Huynh MD [address] [place] [address] [address] [place], [place] [phone] Gastroenterology 07/28/23 Fritz Rivera, DO [address] [place], [place] [phone] Family Medicine 09/13/23 Logan Babin DO [address] [place], [place] [id number] Family Medicine 10/21/23 Elmer Lopez, DO [address] [place], [place] [id number] Resident Family Medicine 12/07/23 Jeannie Machado, RN derrick boat lever operator Longitudinal Care Management 12/26/23 03/26/24 documented as of this encounter
--- OUTSIDE RECORDS SUMMARY | 2025-01-28 19:47 | XMS_ITS ---
Author Name Interface, [id number] lity Address [place] [address] Organization [facility] Address [place] [address] Care Team Providers [employer] Name Role Phone Luis Tucker Unavailable Unavailable [...] LABORDER SPEP with immuno fixation 04/26/2024 LABORDER [place]/lambda wit h K/L ratio, free, serum (mg/dL) 04/26/2024 LABORDER CBC w/auto diff with reflex 11/07/2024 LABORDER SPEP with immuno fixation 11/07/2024 LABORDER CBC w/auto diff with reflex 11/07/2024 LABORDER [place]/lambda wit h K/L ratio, free, serum (mg/dL) 11/07/2024 LABORDER CMP 11/07/2024 LABORDER Iron, TIBC, Ferr itin panel 05/16/2025 LABORDER CBC w/auto diff with reflex 05/16/2025 LABORDER SPEP with immuno fixation 05/16/2025 LABORDER CMP 05/16/2025 LABORDER [place]/lambda wit h K/L ratio, free, serum (mg/dL) [...] FINAL Mary Palanisa [facility] [place] [address] [address].[place] [address] 04/26 SPEP with immun ofixa tion NOHEMI inter preta tion Results Below Normal pattern. No monoclona l proteins detected. FINAL Mary Pal[facility] [place] [address] [address] 12[place] [address] 04/26 SPEP with immun ofixa tion Album in, SPE g/dL 3.8 4.8 3.6 Low FINAL Mary Pal[facility]isa [facility] [place] [address] [address] 12[place] [address] 04/26 SPEP with immun ofixa tion Alpha -1 globu ashley g/dL 0.2 0.3 0.3 FINAL Mary Palanisa [facility] [place] [address] [address] 12.[place] [address] 04/26 SPEP with immun ofixa tion Alpha -2 globu ashley g/dL 0.5 0.9 0.8 FINAL Mary Pal[facility]isa [facility] [place] [address] [address] 12[place] [address] 04/26 SPEP with immun ofixa tion Beta- 1 g/dL 0.4 0.6 0.5 FINAL Mary Palanisa [facility] [place] [address] [address] 12[place] [address] 04/26 SPEP with immun ofixa tion Beta- 2 g/dL 0.2 0.5 0.4 FINAL Mary Pal[facility]isa [facility] [place] [address] 12.[place] [address] 04/26 SPEP with immun ofixa tion Gamma globu ashley g/dL 0.8 1.7 1.5 FINAL Mary Chisa lilia [facility].[address] [place] [address] [place] 12[place] [address] 04/26 SPEP with immun ofixa tion SPE inter preta tion Results Below Abnormal appearing globulin peak, possibly monoclona l. If indicated , recommend immunotyp ing (Test Code: IMTYPB) for further evaluatio n. If the SPEP wasordere d with reflex, immunotyp ing will be resulted upon completio n. FINAL Mary Johnanisa [facility]2 [address] [address] [address] [address] 04/26 [place] /rodriguez da with K/L ratio , free, serum (mg/d L) [place] [employer] , free mg/L 3.3 19.4 86.9 High FINAL Mary Johnanisa lilia [facility] [place] [address] [place] 12[place] [address] 04/26 [place] /rodriguez da with K/L ratio , free, serum (mg/d L) [place] a light chain , free mg/L 5.7 26.3 37.3 High FINAL Mary Johnanisa lilia [facility].[address] [place] [address] [place] 12[place] [address] 04/26 [place] /rodriguez da with K/L ratio , free, [...] Mary Palanisa [facility]2 [address] [address] [address] 12[place] [address] 04/26 CBC w/aut o diff with refle x WBC 10^3/u L 4.8 10.8 6.4 FINAL Mary Palanisa my Whole Blood [facility].[address] [facility] [address] [place] [address] CLIA#45D [id number] 04/26 CBC w/aut o diff with refle x RBC 10^6/u L 4.2 5.4 4.06 Low FINAL Mary Palanisa my Whole Blood [facility].52 [address] [facility] [address] [place] [address] CLIA#45D [id number] 04/26 CBC w/aut o diff with refle x HGB g/dL 12.0 16.0 11.1 Low FINAL Mary Palanisa my Whole [facility].52 [address] [facility] [address] [place] [address] CLIA#45D [id number] 04/26 CBC w/aut o diff with refle x HCT % 37.0 47.0 37.0 FINAL Mary Palanisa my Whole Blood [facility].52 [address] [facility] [address] [place] [address] CLIA#45D [id number] 04/26 CBC w/aut o diff with refle x MCV fL 81.0 99.0 91.1 FINAL Mary Palanisa my Whole [facility].52 [address] [facility] [address] [place] [address] CLIA#45D [id number] 04/26 CBC w/aut o diff with refle x MCH pg 27.0 31.0 27.3 FINAL Mary Palanisa my Whole [facility].52 [address] [facility] [address] [place] [address] CLIA#45D [id number] 04/26 CBC w/aut o diff with refle x MCHC g/dL 33.0 37.0 30.0 Low FINAL Mary Palanisa my Whole [facility].52 [address] [facility] [address] [place] [address] CLIA#45D [id number] 04/26 CBC w/aut o diff with refle x PLT 10^3/u L 130.0 400.0 256 FINAL Mary Palanisa my Whole [facility].52 [address] [facility] [address] [place] [address] CLIA#45D [id number] 04/26 CBC w/aut o diff with refle x MPV fL 9.4 12.3 10.7 FINAL Mary Palanisa my Whole Blood [facility].52 [address] [facility] [address] [place] [address] CLIA#45D [id number] 04/26 CBC w/aut o diff with refle x RDW % 10.5 14.5 15.9 High FINAL Mary Palanisa my Whole [facility].52 [address] [facility] [address] [place] [address] CLIA#45D [id number] 04/26 CBC w/aut o diff with refle x Jordy % % 40.0 77.0 56.0 FINAL Mary Palanisa my Whole [facility].52 [address] [facility] [address] [place] [address] CLIA#45D [id number] 04/26 CBC w/aut o diff with refle x Jordy # (ANC) 10^3/u L 1.5 6.5 3.57 FINAL Mary Palanisa my Whole [facility].52 [address] [facility] [address] [place] [address] CLIA#45D [id number] 04/26 CBC w/aut o diff with refle x IG % % 0.0 0.5 0.3 FINAL Mary Palanisa my Whole [facility].52 [address] [facility] it e [address] [place] [address] CLIA#45D [id number] 04/26 CBC w/aut o diff with refle x IG # 10^3/u L 0.0 0.03 0.02 FINAL Mary Palanisa my Whole Blood [facility].52 [address] [facility] it [address] [place] [address] CLIA#45D [id number] 04/26 CBC w/aut o diff with refle x LY % % 15.0 41.0 19.6 FINAL Mary Palanisa my Whole [facility].52 [address] [facility] it [address] [place] [address] CLIA#45D [id number] 04/26 CBC w/aut o diff with refle x LY # 10^3/u L 1.2 3.4 1.25 FINAL Mary Palanisa my Whole Blood [facility].52 [address] [facility] it [address] [place] [address] CLIA#45D [id number] 04/26 CBC w/aut o diff with refle x MO % % 3.0 11.0 9.7 FINAL Mary Palanisa my Whole [facility].52 [address] [facility] it [address] [place] [address] CLIA#45D [id number] 04/26 CBC w/aut o diff with refle x MO # 10^3/u L 0.0 1.0 0.62 FINAL Mary Palanisa my Whole [facility].52 [address] [facility] it [address] [place] [address] CLIA#45D [id number] 04/26 CBC w/aut o diff with refle x EO % % 0.0 3.0 13.0 High FINAL Mary Palanisa my Whole [facility].52 [address] [facility] it [address] [place] [address] CLIA#45D [id number] 04/26 CBC w/aut o diff with refle x EO # 10^3/u L 0.0 0.3 0.83 High FINAL Mary Palanisa my Whole Blood [facility].52 [address] [facility] [address] [place] [address] CLIA#45D [id number] 04/26 CBC w/aut o diff with refle x BA % % 0.0 1.0 1.4 High FINAL Mary Palanisa my Whole Blood [facility].52 [address] [facility] [address] [place] [address] CLIA#45D [id number] 04/26 CBC w/aut o diff with refle x BA # 10^3/u L 0.0 0.2 0.09 FINAL Mary Palanisa my Whole Blood [facility].52 [address] [facility] [address] [place] [address] CLIA#45D [id number] 04/26 CBC w/aut o diff with refle x NRBC, % % 0.0 0.2 0.0 FINAL Mary Palanisa my Whole [facility].52 [address] [facility] [address] [place] [address] CLIA#45D [id number] 04/26 CBC w/aut o diff with refle x NRBC, absol jose, x 10^3/ uL 10^3/u L 0.0 0.01 0.00 FINAL Mary Palanisa my Whole Blood [facility].52 [address] [facility] [address] [place] [address] CLIA#45D [id number] 04/26 CMP Sodiu m mmol/L 136.0 145.0 140 FINAL Mary Palanisa my Plasma [facility].52 [facility] [address] [place] [address] CLIA#45D [id number] 04/26 CMP Potas sium mmol/L 3.5 5.1 4.9 FINAL Mary Palanisa my Plasma [facility].52 [address] [facility] [address] [place] [address] CLIA#45D [id number] 04/26 CMP Chlor loly mmol/L 97.0 107.0 104 FINAL Mary Palanisa my Plasma [facility].52 36 [facility] [address] [place] [address] CLIA#45D [id number] 04/26 CMP CO2 mmol/L 21.0 32.0 26.0 FINAL Mary Palanisa my Plasma [facility].52 36 [facility] [address] [place] [address] CLIA#45D [id number] 04/26 CMP Gluco se mg/dL 74.0 106.0 120 High FINAL Mary Palanisa my Plasma [facility].52 [address] [facility] [address] [place] [address] CLIA#45D [id number] 04/26 CMP BUN mg/dL 7.0 18.0 37 High FINAL Mary Palanisa my Plasma [facility].52 [address] [facility] [address] [place] [address] CLIA#45D [id number] 04/26 CMP Creat inine , mg/dL mg/dL 0.55 1.3 1.42 High FINAL Mary Palanisa my Plasma [facility].52 36 [facility] [address] [place] [address] CLIA#45D [id number] 04/26 CMP GFR estim ate mil/mi n/1.73 m2 38 Low Result based on the eGFR 2020 calculati on.60-89 mL/min/1. 73m^2 without kidney damage may be normal.60 -89 mL/min/1. 73m^2 for 3 months or more, along with kidney damage, may indicate early kidney disease.C alculatio n modified to the 2020 formula effective 01/16/23. FINAL Mary Palanisa my Plasma [facility].52 36 [facility] [address] [place] [address] CLIA#45D [id number] 04/26 CMP BUN/C reati nine ratio 6.0 25.0 26.1 High FINAL Mary Palanisa my Plasma [facility].52 [address] [facility] [address] [place] [address] CLIA#45D [id number] 04/26 CMP Album in g/dL 3.4 5.0 3.2 Low FINAL Mary Palanisa my Plasma [facility].52 [address] [facility] [address] [place] [address] CLIA#45D [id number] 04/26 CMP Calci um mg/dL 8.5 10.1 9.1 FINAL Mary Palanisa my Plasma [facility].52 36 [facility] [address] [place] [address] CLIA#45D [id number] 04/26 CMP Total prote in g/dL 6.4 8.2 7.8 FINAL Mary Palanisa my Plasma [facility].52 [address] [facility] [address] [place] [address] CLIA#45D [id number] 04/26 CMP Globu ashley g/dL 2.2 4.2 4.6 High FINAL Mary Palanisa my Plasma [facility].52 [address] [facility] [address] [place] [address] CLIA#45D [id number] 04/26 CMP A/G ratio 0.8 2.0 0.7 Low FINAL Mary Palanisa my Plasma [facility].52 [address] [facility] [address] [place] [address] CLIA#45D [id number] 04/26 CMP Bilir ubin, total mg/dL 0.2 1.0 0.5 FINAL Mary Palanisa my [facility].[address] [facility] [address] [place] [address] CLIA#45D [id number] 04/26 CMP Alkal ine phosp hatas e U/L 46.0 116.0 93 FINAL Mary Palanisa my Plasma [facility].52 [address] [facility] [address] [place] [address] CLIA#45D [id number] 04/26 CMP AST/S GOT U/L 15.0 37.0 17 FINAL Mary Palanisa my Plasma [facility].52 [address] [facility] [address] [place] [address] CLIA#45D [id number] 04/26 CMP ALT/S GPT U/L 14.0 59.0 26 FINAL Mary Palanisa my Plasma [facility].52 [address] [facility] [address] [place] [address] CLIA#45D [id number] 04/26 TIBC and perce nt sat w/ iron panel Iron ug/dL 65.0 175.0 30.0 Low FINAL Mary Palanisa my Serum [facility].52 [address] [facility] [address] [place] [address] CLIA#45D [id number] 04/26 TIBC and perce nt sat w/ iron panel TIBC ug/dL 250.0 450.0 283.0 FINAL Mary Palanisa my Serum [facility].52 [address] [facility] [address] [place] [address] CLIA#45D [id number] 04/26 TIBC and perce nt sat w/ iron panel Iron, % satur ation % 15.0 50.0 11 Low FINAL Mary Palanisa my Serum [facility].52 [address] [facility] [address] [place] [address] CLIA#45D [id number] 04/26 Juliet tin panel Juliet tin ng/mL 8.0 252.0 266 High FINAL Mary Palanisa my Serum [facility].52 [address] [facility] [address] [place] [address] CLIA#45D [id number] 11/07 [place] /rodriguez da with K/L ratio , free, serum (mg/d L) [place] [employer] , free mg/L 3.3 19.4 73.5 High FINAL Luis [facility].[address] [place] [address] [address] [address] 11/07 [place] /rodriguez da with K/L ratio , free, serum (mg/d L) [place] [employer] light chain , free mg/L 5.7 26.3 35.8 High FINAL Luis [facility].[address] [place] [address] [address] 12[place] [address] 11/07 [place] /rodriguez da with K/L ratio , free, [...] . FINAL Luis Tucker [facility].[address] [place] [address] [address] 12[place] [address] 11/07 SPEP with immun ofixa tion Total prote in g/dL 6.1 8.1 6.4 FINAL Luis [facility].[address] [place] [address] [address] 12[place] [address] 11/07 SPEP with immun ofixa tion NOHEMI inter preta tion Results Below Normal pattern. No monoclona l proteins detected. FINAL Luis Tucker [facility].[address] [place] [address] [address] 12[place] [address] 11/07 SPEP with immun ofixa tion Album in, SPE g/dL 3.8 4.8 3.4 Low FINAL Luis [facility].[address] [place] [address] [address] 12[place] [address] 11/07 SPEP with immun ofixa tion Alpha -1 globu ashley g/dL 0.2 0.3 0.3 FINAL [facility].2 [address] [address] [address] [address] 11/07 SPEP with immun ofixa tion Alpha -2 globu ashley g/dL 0.5 0.9 0.7 FINAL [facility].2 [address] [address] [address] 12[place] [address] 11/07 SPEP with immun ofixa tion Beta- 1 g/dL 0.4 0.6 0.4 FINAL [facility].2 [address] [address] [address] 12[place] [address] 11/07 SPEP with immun ofixa tion Beta- 2 g/dL 0.2 0.5 0.4 FINAL [facility].2 [address] [address] [address] 12[place] [address] 11/07 SPEP with immun ofixa tion Gamma globu ashley g/dL 0.8 1.7 1.1 FINAL [facility].2 [address] [address] [address] 12[place] [address] 11/07 SPEP with immun ofixa tion SPE inter preta tion Results Below Abnormal appearing gamma globulin peak, possibly monoclona l. If indicated ,recommen d immunotyp ing (Test Code: IMTYPB) for further evaluatio n. If the SPEPwas ordered with reflex, immunotyp ing will be resulted upon completio n. FINAL [facility].2 [address] [address] [address] [address] 11/07 Juliet tin panel Juliet tin ng/mL 8.[address] [facility].[address] [facility] [address] [place] [address] CLIA#45D [id number] 11/07 TIBC and perce nt sat w/ iron panel Iron ug/dL 50.[address] [facility].[address] [facility] [address] [place] [address] CLIA#45D [id number] 11/07 TIBC and perce nt sat w/ iron panel TIBC ug/dL 250.[address] [facility].52 36 [facility] [address] [place] [address] CLIA#45D [id number] 11/07 TIBC and perce nt sat w/ iron panel Iron, % satur ation % 15.[address] [facility].52 36 [facility] [address] [place] [address] CLIA#45D [id number] 11/07 CMP Chlor loly mmol/L 97.0 107.0 106 FINAL [facility].52 36 [facility] [address] [place] [address] CLIA#45D [id number] 11/07 CMP CO2 mmol/L 21.0 32.0 28.0 FINAL [facility].52 36 [facility] [address] [place] [address] CLIA#45D [id number] 11/07 CMP Gluco se mg/dL 74.0 106.0 74 FINAL [facility].52 36 [facility] [address] [place] [address] CLIA#45D [id number] 11/07 CMP BUN mg/dL 7.0 18.0 35 High FINAL [facility].52 36 [facility] [address] [place] [address] CLIA#45D [id number] 11/07 CMP Creat inine , mg/dL mg/dL 0.55 1.3 1.41 High FINAL [facility].52 36 [facility] [address] [place] [address] CLIA#45D [id number] 11/07 CMP GFR estim ate mil/mi n/1.73 m2 38 Low Result based on the eGFR 2020 calculati on.60-89 mL/min/1. 73m^2 without kidney damage may be normal.60 -89 mL/min/1. 73m^2 for 3 months or more, along with kidney damage, may indicate early kidney disease.C alculatio n modified to the 2020 formula effective 01/16/23. FINAL [facility].[address] [facility] [address] [place] [address] CLIA#45D [id number] 11/07 CMP BUN/C reati nine ratio 6.0 25.0 24.8 FINAL [facility].52 [facility] [address] [place] [address] CLIA#45D [id number] 11/07 CMP Calci um mg/dL 8.5 10.1 9.7 FINAL [facility].52 [address] [facility] [address] [place] [address] CLIA#45D [id number] 11/07 CMP Album in g/dL 3.4 5.0 3.1 Low FINAL [facility].52 [address] [facility] [address] [place] [address] CLIA#45D [id number] 11/07 CMP Total prote in g/dL 6.4 8.2 7.3 FINAL [facility].52 [address] [facility] [address] [place] [address] CLIA#45D [id number] 11/07 CMP Globu ashley g/dL 2.2 4.2 4.2 FINAL [facility].52 [address] [facility] [address] [place] [address] CLIA#45D [id number] 11/07 CMP A/G ratio 0.8 2.0 0.7 Low FINAL [facility].52 [address] [facility] [address] [place] [address] CLIA#45D [id number] 11/07 CMP Bilir ubin, total mg/dL 0.2 1.0 0.6 FINAL [facility] Plasma [facility].52 [address] [facility] [address] [place] [address] CLIA#45D [id number] 11/07 CMP Alkal ine phosp hatas e U/L 46.0 116.0 100 FINAL [facility] Plasma [facility].52 [address] [facility] [address] [place] [address] CLIA#45D [id number] 11/07 CMP AST/S GOT U/L 15.0 37.0 26 FINAL [facility] Plasma [facility].52 [address] [facility] [address] [place] [address] CLIA#45D [id number] 11/07 CMP ALT/S GPT U/L 14.0 59.0 27 FINAL [facility].52 [address] [facility] [address] [place] [address] CLIA#45D [id number] 11/07 CMP Sodiu m mmol/L 136.0 145.0 143 FINAL [facility].52 [address] [facility] [address] [place] [address] CLIA#45D [id number] 11/07 CMP Potas sium mmol/L 3.5 5.1 4.3 FINAL [facility].52 [address] [facility] [address] [place] [address] CLIA#45D [id number] 11/07 CBC w/aut o diff with refle x WBC 10^3/u L 4.8 10.8 4.6 Low FINAL [facility] Whole Blood [facility].52 [address] [facility] [address] [place] [address] CLIA#45D [id number] 11/07 CBC w/aut o diff with refle x RBC 10^6/u L 4.2 5.4 4.23 FINAL [facility] Whole Blood [facility].52 [address] [facility] [address] [place] [address] CLIA#45D [id number] 11/07 CBC w/aut o diff with refle x HGB g/dL 12.0 16.0 12.4 FINAL Luis Tucker Whole Blood [facility].52 [address] [facility] it [address] [place] [address] CLIA#45D [id number] 11/07 CBC w/aut o diff with refle x HCT % 37.0 47.0 40.8 FINAL Luis Tucker Whole Blood [facility].52 [address] [facility] it [address] [place] [address] CLIA#45D [id number] 11/07 CBC w/aut o diff with refle x MCV fL 81.0 99.0 96.5 FINAL Luis Tucker Whole Blood [facility].52 [address] [facility] [address] [place] [address] CLIA#45D [id number] 11/07 CBC w/aut o diff with refle x MCH pg 27.0 31.0 29.3 FINAL Luis Tucker Whole Blood [facility].52 [address] [facility] [address] [place] [address] CLIA#45D [id number] 11/07 CBC w/aut o diff with refle x MCHC g/dL 33.0 37.0 30.4 Low FINAL Luis Tucker Whole Blood [facility].52 [address] [facility] it [address] [place] [address] CLIA#45D [id number] 11/07 CBC w/aut o diff with refle x PLT 10^3/u L 130.0 400.0 216 FINAL Luis Tucker Whole Blood [facility].52 [address] [facility] [address] [place] [address] CLIA#45D [id number] 11/07 CBC w/aut o diff with refle x MPV fL 9.4 12.3 10.3 FINAL Luis Tucker Whole Blood [facility].52 [address] [facility] [address] [address] CLIA#45D [id number] 11/07 CBC w/aut o diff with refle x RDW % 10.5 14.5 14.0 FINAL Luis Tucker Whole Blood [facility].52 [address] [facility] [address] [facility] [address] [place] [address] CLIA#45D [id number] 11/07 CBC w/aut o diff with refle x Jordy % % 40.0 77.0 59.7 FINAL Luis Tucker Whole Blood [facility].52 [address] [facility] [address] [place] [address] CLIA#45D [id number] 11/07 CBC w/aut o diff with refle x Jordy # (ANC) 10^3/u L 1.5 6.5 2.73 FINAL Luis Tucker Whole Blood [facility].52 [address] [facility] [address] [place] [address] CLIA#45D [id number] 11/07 CBC w/aut o diff with refle x IG % % 0.0 0.5 0.4 FINAL Luis Tucker Whole Blood [facility].52 [address] [facility] [address] [place] [address] CLIA#45D [id number] 11/07 CBC w/aut o diff with refle x IG # 10^3/u L 0.0 0.03 0.02 FINAL Luis Tucker Whole Blood [facility].52 [address] [facility] [address] [place] [address] CLIA#45D [id number] 11/07 CBC w/aut o diff with refle x LY % % 15.0 41.0 19.0 FINAL Luis Tucker Whole Blood [facility].52 [address] [place] [address] CLIA#45D [id number] 11/07 CBC w/aut o diff with refle x LY # 10^3/u L 1.2 3.4 0.87 Low FINAL Luis Tucker Whole Blood [facility].52 [address] [facility] [address] CLIA#45D [id number] 11/07 CBC w/aut o diff with refle x MO % % 3.0 11.0 9.8 FINAL Luis Brown Whole Blood [facility].52 [address] [facility] [address] [place] [address] CLIA#45D [id number] 11/07 CBC w/aut o diff with refle x MO # 10^3/u L 0.0 1.0 0.45 FINAL Luis Brown Whole Blood [facility].52 [address] [facility] [address] [place] [address] CLIA#45D [id number] 11/07 CBC w/aut o diff with refle x EO % % 0.0 3.0 9.6 High FINAL Luis Brown Whole Blood [facility].52 [address] [facility] [address] [place] [address] CLIA#45D [id number] 11/07 CBC w/aut o diff with refle x EO # 10^3/u L 0.0 0.3 0.44 High FINAL Luis Brown Whole Blood [facility].52 [address] [facility] [address] [address] CLIA#45D [id number] 11/07 CBC w/aut o diff with refle x BA % % 0.0 1.0 1.5 High FINAL Luis Brown Whole Blood [facility].[address] [facility] [address] [place] [address] CLIA#[id number] 11/07 CBC w/aut o diff with refle x BA # 10^3/u L 0.0 0.2 0.07 FINAL Luis Brown Whole Blood [facility].52 [address] [facility] [address] [place] [address] CLIA#45D [id number] 11/07 CBC w/aut o diff with refle x NRBC, % % 0.0 0.2 0.0 FINAL Luis Brown Whole Blood [facility].[address] [facility] [address] [place] [address] CLIA#45D [id number] 11/07 CBC w/aut o diff with refle x NRBC, absol jose, x 10^3/ uL 10^3/u L 0.0 0.01 0.00 FINAL Luis Tucker Whole Blood [facility].52 [address] [facility] [address] [place] [address] CLIA#[id number] Medications Date Name Route Dose Frequency Instructions [...] Section * REYES HemOnc Follow Up - [address] [address] P:?? PATIENT:??JAMESON DOTSON :??1945 Date of Service:??04/26/2024 [...] insufficiency and proteinuria.?? 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 * Spironolactone Oral 25 mg tablet 1 TABLET(S) PO daily * Omeprazole Oral Delayed Release Tablet 20 mg tablet,delayed release (DR/EC) 1 TABLET(S), ENTERIC COATED PO daily * Paroxetine Oral 40 mg tablet 1 TABLET(S) PO daily * Aspirin Oral 81 mg 1 TABLET(S) PO daily * Farxiga (Dapagliflozin Oral) 10 mg tablet daily * Icyswkjuaxo-Liqesocbo-Lzvkqfdj Inhaler 100 mcg-62.5 mcg-25 mcg/actuation 100-62.5-25 mcg [...] 3 adult children.?? 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
--- OUTSIDE RECORDS SUMMARY | 2025-01-28 19:47 | XMS_ITS ---
Author Name Interface, [id number] lity Address [place] [address] Organization [facility] Address [place] [address] Care Team Providers Care Pile Driving Nozzleman Name Role Phone Tayler Jacobs Unavailable Unavailable Allergies and Adverse Reactions Medication/Group Name Reaction Severity Date Sulfa (Sulfonamide Antibiotics) 11/07/2024 Plan Date Type Value 05/16/2025 APPOINTMENT LAB OV 6M 05/16/2025 APPOINTMENT LAB OV 6M 11/07/2024 APPOINTMENT LAB OV 11/07/2024 APPOINTMENT LAB OV 11/07/2024 LABORDER SPEP with immuno fixation 11/07/2024 LABORDER CBC w/auto diff with reflex 11/07/2024 LABORDER [place]/lambda wit h K/L ratio, free, serum (mg/dL) 11/07/2024 LABORDER CMP 11/07/2024 LABORDER Iron, TIBC, Ferr itin panel 05/16/2025 LABORDER CBC w/auto diff with reflex 05/16/2025 LABORDER SPEP with immuno fixation 05/16/2025 LABORDER CMP 05/16/2025 LABORDER [place]/lambda wit h K/L ratio, free, serum (mg/dL) [...] Ordered By Specimen Source Lab Address 11/07 [place] /rodriguez da with K/L ratio , free, serum (mg/d L) [place] light chain , free mg/L 3.3 19.4 73.5 High FINAL Luis [facility] [place] [address] 12.[place] [address] 11/07 [place] /rodriguez da with K/L ratio , free, serum (mg/d L) Lambd a light chain , free mg/L 5.7 26.3 35.8 High FINAL [facility] [place] [address] 12.[place] [address] 11/07 [place] /rodriguez da with K/L ratio , free, [...] therapy of these disorders . FINAL Luis [facility] [place] [address] 12.[place] [address] 11/07 SPEP with immun ofixa tion Total prote in g/dL 6.1 8.1 6.4 FINAL [facility] [place] [address] 12.[place] [address] 11/07 SPEP with immun ofixa tion NOHEMI inter preta tion Results Below Normal pattern. No monoclona l proteins detected. FINAL [facility] [place] [address] 12.[place] [address] 11/07 SPEP with immun ofixa tion Album in, SPE g/dL 3.8 4.8 3.4 Low FINAL Luis Brown [facility] [address] [address] [address] 12[address] [address] 11/07 SPEP with immun ofixa tion Alpha -1 globu ashley g/dL 0.2 0.3 0.3 FINAL Luis Brown [facility] [address] [address] [address] 12[place] [address] 11/07 SPEP with immun ofixa tion Alpha -2 globu ashley g/dL 0.5 0.9 0.7 FINAL Luis Brown [facility] [address] [address] [address] 12[place] [address] 11/07 SPEP with immun ofixa tion Beta- 1 g/dL 0.4 0.6 0.4 FINAL Luis Brown [facility] [address] [address] [address] 12[place] [address] 11/07 SPEP with immun ofixa tion Beta- 2 g/dL 0.2 0.5 0.4 FINAL Luis Brown [facility] [place] [address] [address] 12.[place] [address] 11/07 SPEP with immun ofixa tion Gamma globu ashley g/dL 0.8 1.7 1.1 [facility] [place] [address] [address] 12[place] [address] 11/07 SPEP with immun ofixa tion SPE inter preta tion Results Below Abnormal appearing gamma globulin peak, possibly monoclona l. If indicated ,recommen d immunotyp ing (Test Code: [id number]) for further evaluatio n. If the SPEPwas ordered with reflex, immunotyp ing will be resulted upon completio n. FINAL Luis Tucker [facility]2 [address] [address] [address] 12[place] [address] 11/07 CBC w/aut o diff with refle x WBC 10^3/u L 4.8 10.8 4.6 Low FINAL Luis Tucker Whole Blood [facility].[address] [facility] z[address] Nelson.[address] [place] [address] CLIA#45D [id number] 11/07 CBC w/aut o diff with refle x RBC 10^6/u L 4.2 5.4 4.23 FINAL Luis Tucker Whole Blood [facility].[address] [place] [address] CLIA#45D [id number] 11/07 CBC w/aut o diff with refle x HGB g/dL 12.0 16.0 12.4 FINAL Luis Tucker Whole Blood [facility].52 [address] [facility] [address] e [address] [place] [address] CLIA#45D [id number] 11/07 CBC w/aut o diff with refle x HCT % 37.0 47.0 40.8 FINAL Luis Tucker Whole Blood [facility].[address] [facility] it e [address] [place] [address] CLIA#45D [id number] 11/07 CBC w/aut o diff with refle x MCV fL 81.0 99.0 96.5 FINAL Luis [facility] Whole Blood [facility].[address] [facility] it e [address] [place] [address] CLIA#45D [id number] 11/07 CBC w/aut o diff with refle x MCH pg 27.0 31.0 29.3 FINAL Luis [facility] Whole Blood [facility].[address] [facility] it e [address] [place] [address] CLIA#45D [id number] 11/07 CBC w/aut o diff with refle x MCHC g/dL 33.0 37.0 30.4 Low FINAL Luis Tucker Whole Blood [facility].52 [address] [facility] ty it e [address] [place] [address] CLIA#45D [id number] 11/07 CBC w/aut o diff with refle x PLT 10^3/u L 130.0 400.0 216 FINAL Luis [facility] Whole Blood [facility].52 [address] [facility] ty it e [address] [place] [address] CLIA#45D [id number] 11/07 CBC w/aut o diff with refle x MPV fL 9.4 12.3 10.3 FINAL Luis Tucker Whole Blood [facility].52 [address] [facility] [address] [place] [address] CLIA#45D [id number] 11/07 CBC w/aut o diff with refle x RDW % 10.5 14.5 14.0 FINAL Luis [facility] Whole Blood [facility].[address] [facility] [address] [place] [address] CLIA#45D [id number] 11/07 CBC w/aut o diff with refle x Jordy % % 40.0 77.0 59.7 FINAL Luis [facility] Whole Blood [facility].[address] [facility] [address] [place] [address] CLIA#45D [id number] 11/07 CBC w/aut o diff with refle x Jordy # (ANC) 10^3/u L 1.5 6.5 2.73 FINAL Luis [facility] Whole Blood [facility].[address] [address] [place] [address] CLIA#45D [id number] 11/07 CBC w/aut o diff with refle x IG % % 0.0 0.5 0.4 FINAL Luis [facility] Whole Blood [facility].[address] [address] [place] [address] CLIA#45D [id number] 11/07 CBC w/aut o diff with refle x IG # 10^3/u L 0.0 0.03 0.02 FINAL Luis Tucker Whole Blood [facility].[address] [address] [place] [address] CLIA#45D [id number] 11/07 CBC w/aut o diff with refle x LY % % 15.0 41.0 19.0 FINAL Luis Tucker Whole Blood [facility].[address] [address] [place] [address] CLIA#45D [id number] 11/07 CBC w/aut o diff with refle x LY # 10^3/u L 1.2 3.4 0.87 Low FINAL Luis Brown Whole Blood [facility].52 [address] [place] [address] CLIA#45D [id number] 11/07 CBC w/aut o diff with refle x MO % % 3.0 11.0 9.8 FINAL Luis Brown Whole Blood [facility].[address] [place] [address] CLIA#45D [id number] 11/07 CBC w/aut o diff with refle x MO # 10^3/u L 0.0 1.0 0.45 FINAL Luis Brown Whole Blood [facility].52 [address] [facility] ty e [address] [place] [address] CLIA#45D [id number] 11/07 CBC w/aut o diff with refle x EO % % 0.0 3.0 9.6 High FINAL Luis Brown Whole Blood [facility].[address] [facility] e [address] [place] [address] CLIA#45D [id number] 11/07 CBC w/aut o diff with refle x EO # 10^3/u L 0.0 0.3 0.44 High FINAL Luis Brown Whole Blood [facility].[address] [facility] e [address] [place] [address] CLIA#45D [id number] 11/07 CBC w/aut o diff with refle x BA % % 0.0 1.0 1.5 High FINAL Luis Brown Whole Blood [facility].[address] [facility] e [address] [place] [address] CLIA#45D [id number] 11/07 CBC w/aut o diff with refle x BA # 10^3/u L 0.0 0.2 0.07 FINAL Luis Brown Whole Blood [facility].[address] [facility] e [address] [place] [address] CLIA#45D [id number] 11/07 CBC w/aut o diff with refle x NRBC, % % 0.0 0.2 0.0 FINAL Luis [facility] Whole Blood [facility].[address] [facility] e [address] [place] [address] CLIA#45D [id number] 11/07 CBC w/aut o diff with refle x NRBC, absol jose, x 10^3/ uL 10^3/u L 0.0 0.01 0.00 FINAL Luis [facility] Whole Blood [facility].[address] [facility] e [address] [place] [address] CLIA#45D [id number] 11/07 TIBC and perce nt sat w/ iron panel Iron ug/dL 50.0 170.0 60.0 FINAL [facility] [address] [place] [address] CLIA#45D [id number] 11/07 TIBC and perce nt sat w/ iron panel TIBC ug/dL 250.0 450.0 311.0 FINAL [facility].52 [facility] [address] [place] [address] CLIA#45D [id number] 11/07 TIBC and perce nt sat w/ iron panel Iron, % satur ation % 15.0 50.0 19 FINAL [facility].52 [address] [facility] [address] [place] [address] CLIA#45D [id number] 11/07 CMP Chlor loly mmol/L 97.0 107.0 106 FINAL [facility].52 [facility] [address] [place] [address] CLIA#45D [id number] 11/07 CMP CO2 mmol/L 21.0 32.0 28.0 FINAL [facility].52 [facility] [address] [place] [address] CLIA#45D [id number] 11/07 CMP Gluco se mg/dL 74.0 106.0 74 FINAL [facility].[address] [facility] [address] [place] [address] CLIA#45D [id number] 11/07 CMP BUN mg/dL 7.0 18.0 35 High FINAL [facility].[address] [facility] [address] [place] [address] CLIA#45D [id number] 11/07 CMP Creat inine , mg/dL mg/dL 0.55 1.3 1.41 High FINAL [facility].52 [address] [facility] [address] [place] [address] CLIA#45D [id number] 11/07 CMP GFR estim ate mil/mi n/1.73 m2 38 Low Result based on the eGFR 2020 calculati on.60-89 mL/min/1. 73m^2 without kidney damage may be normal.60 -89 mL/min/1. 73m^2 for 3 months or more, along with kidney damage, may indicate early kidney disease.C alculatio n modified to the 2020 formula effective 01/16/23. FINAL [facility].[address] [facility] [address] [place] [address] CLIA#45D [id number] 11/07 CMP BUN/C reati nine ratio 6.0 25.0 24.8 FINAL [facility].52 [address] [facility] [address] [place] [address] CLIA#45D [id number] 11/07 CMP Calci um mg/dL 8.5 10.1 9.7 FINAL [facility].52 [address] [facility] [address] [place] [address] CLIA#45D [id number] 11/07 CMP Album in g/dL 3.4 5.0 3.1 Low FINAL [facility].[address] [facility] e [address] [place] [address] CLIA#45D [id number] 11/07 CMP Total prote in g/dL 6.4 8.2 7.3 FINAL [facility].52 [address] [facility] [address] [place] [address] CLIA#45D [id number] 11/07 CMP Globu ashley g/dL 2.2 4.2 4.2 FINAL [facility].52 [address] [facility] [address] [place] [address] CLIA#45D [id number] 11/07 CMP A/G ratio 0.8 2.0 0.7 Low FINAL [facility].52 [address] [facility] [address] [place] [address] CLIA#45D [id number] 11/07 CMP Bilir ubin, total mg/dL 0.2 1.0 0.6 FINAL [facility].52 [address] [facility] [address] [place] [address] CLIA#45D [id number] 11/07 CMP Alkal ine phosp hatas e U/L 46.0 116.0 100 FINAL [facility].52 [address] [facility] [address] [place] [address] CLIA#45D [id number] 11/07 CMP AST/S GOT U/L 15.0 37.0 26 FINAL [facility].52 [address] [facility] [address] [place] [address] CLIA#45D [id number] 11/07 CMP ALT/S GPT U/L 14.0 59.0 27 FINAL [facility].52 [address] [facility] [address] [place] [address] CLIA#45D [id number] 11/07 CMP Sodiu m mmol/L 136.0 145.0 143 FINAL [facility].52 [address] [facility] [address] [place] [address] CLIA#45D [id number] 11/07 CMP Potas sium mmol/L 3.5 5.1 4.3 FINAL Luis Brown Plasma [facility].52 [address] [facility] [address] [place] [address] CLIA#45D [id number] 11/07 Juliet tin panel Juliet tin ng/mL 8.0 252.0 228 FINAL Tayler Jacobs Serum [facility].52 [facility] [address] [place] [address] CLIA#45D [id number] Medications Date Name Route Dose Frequency Instructions [...] * REYES HemOnc Follow Up {John}- [facility] [address] [address] P:?? PATIENT:??JAMESON DOTSON :??1945 Date of Service:??11/07/2024 [...] insufficiency and proteinuria.?? 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 Was seen at urgent care in [place] 1 month ago for bronchitis and symptoms have improved. She??denies any fevers, chills, night sweats, weight loss or??new bone pains. Past Medical History: Hypertension, hypothyroidism, GERD, hyperlipidemia, depression, CHF, on dual antiplatelet therapy, COPD, former smoker, quit in 2002, proteinuria and mild renal insufficiency followed by plumbing inspector Past Surgical History: ? 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 * Aspirin Oral 81 mg 1 TABLET(S) PO daily * Eoosypnwmaf-Ttrmarylz-Ruxqgyed Inhaler 100 mcg-62.5 mcg-25 mcg/actuation 100-62.5-25 mcg [...] 3 adult children.?? 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 Tayler Jacobs ABSTRACTER ? Send copy of note to: MD Edmond Hicks MD. Electronically signed by Tayler Jacobs NP 11/07/2024 13:31 ANODE WORKER
--- OUTSIDE RECORDS SUMMARY | 2025-01-28 19:47 | XMS_ITS ---
Author Name Interface, M6Dvisloa lity Address [place] [address] Organization [facility] Address [place] [address] Care Team Providers Care Licensed Bondsman Name Role Phone DorindaMichell pintoe Unavailable Unavailable [...] Iron, TIBC, Ferr itin panel 06/24/2021 LABORDER [place]/lambda wit h K/L ratio, free, serum (mg/dL) 06/24/2021 LABORDER CBC 06/24/2021 LABORDER CMP 06/24/2021 LABORDER SPEP with immuno fixation 06/24/2021 LABORDER Vitamin B12 and Folate panel 12/24/2021 LABORDER SPEP with immuno fixation 12/24/2021 LABORDER Vitamin B12 and Folate panel 12/24/2021 LABORDER Iron, TIBC, Ferr itin panel 12/24/2021 LABORDER CMP 12/24/2021 LABORDER Iron, TIBC, Ferr itin panel 12/24/2021 LABORDER [place]/lambda wit h K/L ratio, free, serum (mg/dL) 12/24/2021 LABORDER CBC 06/24/2022 LABORDER CBC 06/24/2022 LABORDER SPEP with immuno fixation 06/24/2022 LABORDER Vitamin B12 and Folate panel 06/24/2022 LABORDER CMP 06/24/2022 LABORDER Iron, TIBC, Ferr itin panel 06/24/2022 LABORDER [place]/lambda wit h K/L ratio, free, serum (mg/dL) 12/30/2022 LABORDER Iron, TIBC, Ferr itin panel 12/30/2022 LABORDER Vitamin B12 and Folate panel 12/30/2022 LABORDER CMP 12/30/2022 LABORDER [place]/lambda wit h K/L ratio, free, serum (mg/dL) 12/30/2022 LABORDER CBC 12/30/2022 LABORDER SPEP with immuno fixation 04/08/2023 LABORDER Iron, TIBC, Ferr itin panel 04/08/2023 LABORDER CBC w/ auto diff 07/07/2023 LABORDER Iron, TIBC, Ferr itin panel 07/07/2023 LABORDER CMP 07/07/2023 LABORDER CBC w/ auto diff 07/07/2023 LABORDER [place]/lambda wit h K/L ratio, free, serum (mg/dL) [...] LABORDER SPEP with immuno fixation 04/26/2024 LABORDER [place]/lambda wit h K/L ratio, free, serum (mg/dL) 04/26/2024 LABORDER CBC w/auto diff with reflex 11/07/2024 LABORDER SPEP with immuno fixation 11/07/2024 LABORDER CBC w/auto diff with reflex 11/07/2024 LABORDER [place]/lambda wit h K/L ratio, free, serum (mg/dL) 11/07/2024 LABORDER CMP 11/07/2024 LABORDER Iron, TIBC, Ferr itin panel 05/16/2025 LABORDER CBC w/auto diff with reflex 05/16/2025 LABORDER SPEP with immuno fixation 05/16/2025 LABORDER CMP 05/16/2025 LABORDER [place]/lambda wit h K/L ratio, free, serum (mg/dL) [...] 252.0 15 FINAL Mary Palanisa my Serum [facility] . [address] [place] [address]. [id number]. [place] [address] CLIA#45D [id number] 06/24 TIBC and perce nt sat w/ iron panel Iron ug/dL 50.0 170.0 34.00 Low FINAL Mary Palanisa my Serum [facility] . [address] [place] [address]. [id number]. [place] [address] CLIA#45D [id number] 06/24 TIBC and perce nt sat w/ iron panel TIBC ug/dL 250.0 450.0 482.00 High FINAL Mary Palanisa my Serum [facility] . [address] [place] [address]. [id number]. [place] [address] CLIA#45D [id number] 06/24 TIBC and perce nt sat w/ iron panel Iron, % satur ation % 20.0 55.0 7.1 Low FINAL Mary Palanisa my Serum [facility] . [address] [place] [address]. [id number]. [place] [address] CLIA#45D [id number] 06/24 SPEP with immun ofixa tion Album in, SPE g/dL 3.1 5.5 3.7 FINAL Mary Palanisa my Serum [facility] [place] [address] 12.[facility] [address] [facility]/24 SPEP with immun ofixa tion Alpha -1 globu ashley g/dL 0.2 0.5 0.3 FINAL Mary Palanisa my Serum [facility] [place] [address] 12.[place] [address] 06/24 SPEP with immun ofixa tion Alpha -2 globu ashley g/dL 0.4 1.0 0.7 FINAL Mary Palanisa my Serum [facility] [place] [address] 12.[facility] [address] 06/24 SPEP with immun ofixa tion Beta globu ashley g/dL 0.5 1.1 0.9 FINAL Mary Palanisa my Serum [facility] [place] [address] 12.[place] [address] 06/24 SPEP with immun ofixa tion Gamma globu ashley g/dL 0.7 1.5 1.1 FINAL Mary Johnanisa my Serum [facility] [address] [place] [address] Building 12.Jonathan [place] [address] 06/24 SPEP with immun ofixa tion Parap rotei n band, g/dL g/dL None FINAL Mary Johnanisa my Serum [facility] [address] [place] [address] [place] 12[place] [address] 06/24 SPEP with immun ofixa tion Total prote in elect ropho resis g/dL 5.7 8.2 6.7 FINAL Mary Johnanisa my Serum [facility] [address] [place] [address] [address] 12.[place] [address] 06/24 SPEP with immun ofixa tion SPE inter preta tion Results Below Normal serum total protein with normal electroph oretic pattern. FINAL Mary Johnanisa my Serum [facility] [address] [place] [address] [address] 12.[place] [id number] 06/24 SPEP with immun ofixa tion Immun ofixa tion, serum , inter preta tion Results Below No monoclona l peaks detected. FINAL Mary Chisa my Serum [facility] [address] [place] [address] [address] 12.[place] [address] 06/24 Vitam in B12 panel Vitam in B12 pg/mL 211.0 911.0 571 FINAL Mary Johnanisa my Serum [facility] [address] [place] [address] [place] [address] 06/24 CMP Sodiu m mmol/L 136.0 145.0 143 FINAL Mary Johnanisa my Plasma [facility] . [employer] [email or web address]. [id number]. [facility] [address] CLIA#45D [id number] 06/24 CMP Potas sium mmol/L 3.5 5.1 3.8 FINAL Mary Palanisa my Plasma [facility] . [address] [employer]. [id number]. [facility] [address] CLIA#45D [id number] 06/24 CMP Chlor loly mmol/L 97.0 107.0 106 FINAL Mary Palanisa my Plasma [facility] . [address] [place], [place] [address]. [id number]. [facility] [address] CLIA#45D [id number] 06/24 CMP CO2 mmol/L 21.0 32.0 27 FINAL Mary Palanisa my Plasma [facility] . [address] [place], [place] [address]. [id number]. [facility] [address] CLIA#45D [id number] 06/24 CMP Gluco se mg/dL 70.0 110.0 144 High FINAL Mary Palanisa my Plasma [facility] . [address] [place], [place] [address]. [id number]. [place] [address] CLIA#45D [id number] 06/24 CMP BUN mg/dL 7.0 18.0 18 FINAL Mary Palanisa my Plasma [facility] . [address] [place], [place] [address]. [id number]. [place] [address] CLIA#45D [id number] 06/24 CMP Creat inine , mg/dL mg/dL 0.55 1.3 1.41 High FINAL Mary Palanisa my Plasma [facility] . [address] [place], [place] [address] [facility]. [id number]. [place] [address] CLIA#45D [id number] 06/24 CMP GFR estim ate ml/min /1.73m 2 37 Low eFR based on CKD-EPI to estimate renal function. If multiply results by 1.159.60- 89 mL/min/1. 73m^2 without kidney damage may be normal.60 -89 mL/min/1. 73m^2 for 3 months or more, along with kidney damage, may indicate early kidney disease.I f , multiply result by 1.159. FINAL Mary Palanisa my Plasma [facility] . [address] [place], [place] [address]. [id number]. [place] [id number] CLIA#45D [id number] 06/24 CMP BUN/C reati nine ratio Ratio 6.0 25.0 12.8 FINAL Mary Palanisa my Plasma [facility] . [address] [place], [place] [address]. [id number]. [place] [address] CLIA#45D [id number] 06/24 CMP Calci um mg/dL 8.5 10.1 8.7 FINAL Mary Palanisa my Plasma [facility] . [address] [place] [address]. [id number]. [place] [address] CLIA#45D [id number] 06/24 CMP Total prote in g/dL 6.4 8.2 6.8 FINAL Mary Palanisa my Plasma [facility] . [address] [place] [address]. [id number]. [place] [address] CLIA#45D [id number] 06/24 CMP Album in g/dL 3.4 5.0 3.2 Low FINAL Mary Palanisa my Plasma [facility] . [address] [place] [address]. [place] [address]. [place] [address] CLIA#45D [id number] 06/24 CMP A/G ratio Ratio 0.8 2.0 0.9 FINAL Mary Palanisa my Plasma [facility] . [address] [place] [address]. [id number]. [place] [address] CLIA#45D [id number] 06/24 CMP Bilir ubin, total mg/dL 0.1 1.0 0.5 FINAL Mary Palanisa my Plasma [facility] . [address] [place] [address]. [id number]. [place] [address] CLIA#45D [id number] 06/24 CMP Alkal ine phosp hatas e U/L 46.0 116.0 96 FINAL Mary Palanisa my Plasma [facility] . [address] [place] [address]. [id number]. [place] [address] CLIA#45D [id number] 06/24 CMP AST/S GOT U/L 15.0 37.0 16 FINAL Mary Palanisa my Plasma [facility] . [address] [place] [address]. [id number]. [place] [address] CLIA#45D [id number] 06/24 CMP ALT/S GPT U/L 14.0 59.0 18 FINAL Mary Palanisa my Plasma [facility] . [address] [place], [place] [address]y [facility]. [id number]. [place] [address]71 CLIA#45D [id number] 06/24 [place] /robbins da with K/L ratio , free, serum (mg/d L) [place] [employer] , free, serum , mg/L mg/L 3.3 19.4 64.7 High FINAL Mary Palanisa my Serum [facility] [address] [place] [address] [place] 12[place] [address] 06/24 [place] /robbins da with K/L ratio , free, serum (mg/d L) [employer] [employer] , free, serum , mg/L mg/L 5.7 26.3 29.2 High FINAL Mary Palanisa my Serum [facility] [address] [place] [address] [place] 12[place] [address] 06/24 [place] /robbins da with K/L ratio , free, serum (mg/d L) [place] /[place] light chain s, free w/ ratio , serum Ratio 0.26 1.65 2.22 High (Note)Harjnider e kappa/tracy bda ratio in serum of [...] Mary Palanisa my Serum [facility] [address] [place] [address] [place] 12[place] [address] 06/24 CBC WBC 10^3/u l 4.8 10.8 4.4 Low FINAL Mary Palanisa my Whole Blood [facility] . [address] [facility] [employer] [facility]. [id number]. [facility] [address] CLIA#45D [id number] 06/24 CBC RBC 10^6/u l 4.2 5.4 3.85 Low FINAL Mary Palanisa my Whole Blood [facility] . [address] [place] [address] [employer] [facility]. [id number]. [place] [address] CLIA#45D [id number] 06/24 CBC HGB g/dl 12.0 16.0 9.8 Low FINAL Mary Palanisa my Whole Blood [facility] . [address] [place] [address] [employer] [facility]. [id number]. [place] [address] CLIA#45D [id number] 06/24 CBC HCT % 37.0 47.0 32.6 Low FINAL Mary Palanisa my Whole Blood [facility] . [address] [place], [place] [email or web address] [facility]. [id number]. [place] [address] CLIA#45D [id number] 06/24 CBC MCV fl 81.0 99.0 84.7 FINAL Mary Palanisa my Whole Blood [facility] . [address] [place], [place] [email or web address] [facility]. [id number]. [place] [address] CLIA#45D [id number] 06/24 CBC MCH pg 27.0 31.0 25.5 Low FINAL Mary Palanisa my Whole Blood [facility] . [address] [place], [place] [email or web address] [facility]. [id number]. [place] [address] CLIA#45D [id number] 06/24 CBC MCHC g/dl 33.0 37.0 30.1 Low FINAL Mary Palanisa my Whole Blood [facility] . [address] [place] [address]. [id number]. [place] [address] CLIA#45D [id number] 06/24 CBC RDW % 10.5 14.5 14.6 High FINAL Mary Palanisa my Whole Blood [facility] . [address] [place] [address] [employer] [facility]. [id number]. [place] [address] CLIA#45D [id number] 06/24 CBC PLT 10^3/u l 130.0 400.0 299 FINAL Mary Palanisa my Whole Blood [facility] . [address] [place] [address] [employer] [facility]. [id number]. [place] [address] CLIA#45D [id number] 06/24 CBC MPV fl 9.4 12.3 11.1 FINAL Mary Palanisa my Whole Blood [facility] . [address] [place] [address]. [place] [address]. [place] [address] CLIA#45D [id number] 06/24 CBC Auto CBC comme nts See Manual Diff FINAL Mary Palanisa my Whole Blood [facility] . [address] [place] [address]. [id number]. [place] [address] CLIA#45D [id number] 06/24 Manua l diffe renti al Seg % % 40.0 77.0 41 FINAL Mary Palanisa my Whole Blood [facility] . [address] [place] [address]. [place] [address]. [place] [address] CLIA#45D [id number] 06/24 Manua l diffe renti al Lymph ocyte % % 15.0 41.0 33 FINAL Mary Palanisa my Whole Blood [facility] . [address] [place] [address]. [id number]. [place] [address] CLIA#45D [id number] 06/24 Manua l diffe renti al Monoc yte % % 3.0 11.0 8 FINAL Mary Palanisa my Whole Blood [facility] . [address] [place] [address]. [place] [address]. [place] [address] CLIA#45D [id number] 06/24 Manua l diffe renti al Eosin ophil % % 0.0 3.0 15 High FINAL Mary Palanisa my Whole Blood [facility] . [address] [place] [address]. [place] [address]. [place] [address] CLIA#45D [id number] 06/24 Manua l diffe renti al Basop hil % % 0.0 1.0 3 High FINAL Mary Palanisa my Whole Blood [facility] . [address] [place] [address]. [place] [address]. [place] [address] CLIA#45D [id number] 06/24 Manua l diffe renti al ANC (M) 10^3/U L 1.5 6.5 1.81 FINAL Mary Palanisa my Whole Blood [facility] . [address] [place] [address]. [id number]. [place] [address] CLIA#45D [id number] 06/24 Manua l diffe renti al LY# (M) 10^3/u L 1.2 3.4 1.46 FINAL Mary Palanisa my Whole Blood [facility] . [address] [place] [address]. [id number]. [place] [address] CLIA#45D [id number] 06/24 Manua l diffe renti al MO# (M) 10^3/U L 0.0 1.0 0.35 FINAL Mary Palanisa my Whole Blood [facility] . [address] [place] [address]. [id number]. [place] [address] CLIA#45D [id number] 06/24 Manua l diffe renti al EO# (M) 10^3/U L 0.0 0.3 0.66 High FINAL Mary Palanisa my Whole Blood [facility] . [address] [place] [address]. [id number]. [place] [address] CLIA#45D [id number] 06/24 Manua l diffe renti al Basop hil count (M) 10^3/U L 0.0 0.2 0.13 FINAL Mary Palanisa my Whole Blood [facility] . [address] [place] [address]. [id number]. [place] [address] CLIA#45D [id number] 06/24 Manua l diffe renti al Plate let estim ate 10^3 130.0 400.0 Agrees with Analyze r FINAL Mary Palanisa my Whole Blood [facility] . [address] [place] [address]. [id number]. [place] [address] CLIA#45D [id number] 06/24 Manua l diffe renti al RBC morph Normal FINAL Mary Palanisa my Whole Blood [facility] . [address] [place] [address]. [id number]. [place] [address] CLIA#45D [id number] 06/24 Folat e panel Folat e, serum ng/mL 7.6 FINAL Mary Palanisa Serum [facility]2 [address] [facility] [address] [place] 12[place] [address] 12/24 TIBC and perce nt sat w/ iron panel Iron ug/dL 50.0 170.0 79.00 FINAL [facility] . [address] [place] [address]. [id number]. [place] [address] CLIA#45D [id number] 12/24 TIBC and perce nt sat w/ iron panel TIBC ug/dL 250.0 450.0 438.00 FINAL [facility] . [address] [place] [address]. [id number]. [place] [address] CLIA#45D [id number] 12/24 TIBC and perce nt sat w/ iron panel Iron, % satur ation % 20.0 55.0 18.0 Low FINAL [facility] . [address] [place] [address]. [id number]. [place] [address] CLIA#45D [id number] 12/24 Juliet tin panel Juliet tin ng/mL 8.0 252.0 29 FINAL [facility] Serum [facility] . [address] [place] [address]. [id number]. [place] [address] CLIA#45D [id number] 12/24 CBC WBC 10^3/u l 4.8 10.8 4.6 Low FINAL [facility] Whole Blood [facility] . [address] [place] [address]. [id number]. [place] [address] CLIA#45D [id number] 12/24 CBC RBC 10^6/u l 4.2 5.4 3.83 Low FINAL [facility] Whole Blood [facility] . [address] [place] [address]. [id number]. [place] [address] CLIA#45D [id number] 12/24 CBC HGB g/dl 12.0 16.0 11.3 Low FINAL [facility] Whole Blood [facility] . [address] [place] [address]. [id number]. [place] [address] CLIA#45D [id number] 12/24 CBC HCT % 37.0 47.0 35.3 Low FINAL Roxi Kelleywith Whole Blood [facility] . [address] [place], [place] [email or web address] [facility]. [id number]. [facility] [address] CLIA#45D [id number] 12/24 CBC MCV fl 81.0 99.0 92.2 FINAL Roxi Kelleywith Whole Blood [facility] . [address] [place] [address]. [id number]. [place] [address] CLIA#45D [id number] 12/24 CBC MCH pg 27.0 31.0 29.5 FINAL Roxi Kelleywith Whole Blood [facility] . [address] [place] [address]. [id number]. [place] [address] CLIA#45D [id number] 12/24 CBC MCHC g/dl 33.0 37.0 32.0 Low FINAL Roxi Kelleywith Whole Blood [facility] . [address] [place] [address]. [place] [address]. [place] [address] CLIA#45D [id number] 12/24 CBC RDW % 10.5 14.5 15.3 High FINAL Roxi Kelleywith Whole Blood [facility] . [address] [place] [address]. [place] [address]. [facility] [address] CLIA#45D [id number] 12/24 CBC PLT 10^3/u l 130.0 400.0 219 FINAL Roxi Kelleywith Whole Blood [facility] . [address] [place] [address]. [place] [address]. [facility] [address] CLIA#45D [id number] 12/24 CBC MPV fl 9.4 12.3 10.5 FINAL Roxi Kelleywith Whole Blood [facility] . [address] [place] [address]. [id number]. [place] [address]71 CLIA#45D [id number] 12/24 CBC Jordy % % 40.0 77.0 45.7 FINAL Roxi Dorinda Whole Blood [facility] . [address] [place] [address]. [place] [address]. [place] [address] CLIA#45D [id number] 12/24 CBC Jordy # (ANC) 10^3/u l 1.5 6.5 2.1 FINAL Roxi Dorinda Whole Blood [facility] . [address] [place] [address]. [id number]. [place] [address] CLIA#45D [id number] 12/24 CBC LY % % 15.0 41.0 34.5 FINAL Roxi Dorinda Whole Blood [facility] . [address] [place] [address]. [id number]. [place] [address] CLIA#45D [id number] 12/24 CBC LY # 10^3/u l 1.2 3.4 1.6 FINAL Roxi Dorinda Whole Blood [facility] . [address] [place] [address]. [place] [address]. [place] [address] CLIA#45D [id number] 12/24 CBC MO % % 3.0 11.0 12.0 High FINAL Roxi Dorinda Whole Blood [facility] . [address] [place] [address]. [place] [address]. [place] [address] CLIA#45D [id number] 12/24 CBC MO # 10^3/u l 0.0 1.0 0.6 FINAL Roxi Dorinda Whole Blood [facility] . [address] [place] [address]. [place] [address]. [place] [address] CLIA#45D [id number] 12/24 CBC EO % % 0.0 3.0 6.3 High FINAL Roxi Dorinda Whole Blood [facility] . [address] [place] [address]. [place] [address]. [place] [address] CLIA#45D [id number] 12/24 CBC EO # 10^3/u L 0.0 0.3 0.3 FINAL Roxi Dorinda Whole Blood [facility] . [address] [place] [address]. [place] [address]. [place] [address] CLIA#45D [id number] 12/24 CBC BA % % 0.0 1.0 1.3 High FINAL Roxi Dorinda Whole Blood [facility] . [address] [place] [address]. [place] [address]. [place] [address] CLIA#45D [id number] 12/24 CBC BA # 10^3/u L 0.0 0.2 0.1 FINAL Roxi Dorinda Whole Blood [facility] . [address] [place] [address]. [id number]. [facility] [address] CLIA#45D [id number] 12/24 CBC IG % % 0.0 0.5 0.20 FINAL Roxi Dorinda Whole Blood [facility] . [address] [place] [address]. [id number]. [facility] [address] CLIA#45D [id number] 12/24 CBC IG # 10^3/u L 0.0 0.03 0.01 FINAL Roxi Dorinda Whole Blood [facility] . [address] [place] [address]. [id number]. [facility] [address] CLIA#45D [id number] 12/24 CBC NRBC, % % 0.00 FINAL Roxi Dorinda Whole Blood [facility] . [address] [place] [address]. [id number]. [facility] [address] CLIA#45D [id number] 12/24 CBC NRBC, absol [place], x 10^3/ uL 10^3/u L 0.000 FINAL Roxi Dorinda Whole Blood [facility] . [address] [place] [address]. [place] [address]. [facility] [address] CLIA#45D [id number] 12/24 Vitam in B12 panel Vitam in [...] FINAL Roxi Dorinda Serum [facility]2 [address] [facility] [address] [place] 12[place] [address] 12/24 CMP Sodiu m mmol/L 136.0 145.0 141 FINAL Roxi Dorinda Plasma [facility] . [address] [place] [address]. [id number]. [facility] [address] CLIA#45D [id number] 12/24 CMP Potas sium mmol/L 3.5 5.1 3.7 FINAL Roxi Dorinda Man [facility] . [address] [place] [address]. [id number]. [facility] [address] CLIA#45D [id number] 12/24 CMP Chlor loly mmol/L 97.0 107.0 103 FINAL Roxi [facility] . [address] [place] [address]. [id number]. [facility] [address] CLIA#45D [id number] 12/24 CMP CO2 mmol/L 21.0 32.0 30 FINAL [facility] . [address] [place] [address]. [id number]. [place] [address] CLIA#45D [id number] 12/24 CMP Gluco se mg/dL 70.0 110.0 99 FINAL [facility] . [address] [place] [address]. [id number]. [place] [address] CLIA#45D [id number] 12/24 CMP BUN mg/dL 7.0 18.0 25 High FINAL [facility] . [address] [place] [address]. [id number]. [place] [address] CLIA#45D [id number] 12/24 CMP Creat inine , mg/dL mg/dL 0.55 1.3 1.53 High FINAL [facility] . [address] [place] [address]. [id number]. [place] [id number] CLIA#45D [id number] 12/24 CMP GFR estim ate ml/min /1.73m 2 33 Low eFR based on CKD-EPI to estimate renal function. If multiply results by 1.159.60- 89 mL/min/1. 73m^2 without kidney damage may be normal.60 -89 mL/min/1. 73m^2 for 3 months or more, along with kidney damage, may indicate early kidney disease.I f , multiply result by 1.159. FINAL [facility] . [address] [place] [address]. [id number]. [place] [address] CLIA#45D [id number] 12/24 CMP BUN/C reati nine ratio Ratio 6.0 25.0 16.3 FINAL [facility] . [address] [place] [address]. [id number]. [place] [address] CLIA#45D [id number] 12/24 CMP Calci um mg/dL 8.5 10.1 9.0 FINAL [facility] . [address] [place] [address]. [id number]. [place] [address] CLIA#45D [id number] 12/24 CMP Total prote in g/dL 6.4 8.2 7.2 FINAL [facility] . [address] [place] [address]. [place] [address]. [place] [address] CLIA#45D [id number] 12/24 CMP Album in g/dL 3.4 5.0 3.4 FINAL [facility] . [address] [place] [address]. [place] [address]. [place] [address] CLIA#45D [id number] 12/24 CMP A/G ratio Ratio 0.8 2.0 0.9 FINAL [facility] . [address] [place] [address]. [place] [address]. [place] [address] CLIA#45D [id number] 12/24 CMP Bilir ubin, total mg/dL 0.1 1.0 0.7 FINAL [facility] . [address] [place] [address]. [place] [address]. [place] [address] CLIA#45D [id number] 12/24 CMP Alkal ine phosp hatas e U/L 46.0 116.0 92 FINAL [facility] . [address] [place] [address]. [id number]. [place] [address] CLIA#45D [id number] 12/24 CMP AST/S GOT U/L 15.0 37.0 20 FINAL [facility] . [address] [place] [address]. [place] [address] CLIA#45D [id number] 12/24 CMP ALT/S GPT U/L 14.0 59.0 20 FINAL [facility] . [address] [facility]. [id number]. [facility] [address] CLIA#45D [id number] 12/24 Folat e panel Folat e, serum ng/mL 7.2 (Note)Ref erence ranges for adults: Low <3.4 ng/mL Borderlin e 3.4 - 5.4 ng/mL Normal >5.4 ng/mL FINAL Roxi Dorinda Serum [facility] [place] [address] [address].[place] [address] 12/24 SPEP with immun ofixa tion Album in, SPE g/dL 3.1 5.5 3.7 FINAL Roxi Dorinda Serum [facility] [place] [address] [address] 12[place] [address] 12/24 SPEP with immun ofixa tion Alpha -1 globu ashley g/dL 0.2 0.5 0.3 FINAL [facility] [place] [address] [place] 12[place] [address] 12/24 SPEP with immun ofixa tion Alpha -2 globu ashley g/dL 0.4 1.0 0.7 FINAL [facility] [place] [address] [place] 12[place] [address] 12/24 SPEP with immun ofixa tion Beta globu ashley g/dL 0.5 1.1 0.9 FINAL [facility] [place] [address] [place] 12[place] [address] 12/24 SPEP with immun ofixa tion Gamma globu ashley g/dL 0.7 1.5 1.0 FINAL [facility] [place] [address] [place] 12[place] [address] 12/24 SPEP with immun ofixa tion Parap rotei n band, g/dL g/dL None FINAL [facility] [place] [address] [place] 12[place] [address] 12/24 SPEP with immun ofixa tion Total prote in elect ropho resis g/dL 5.7 8.2 6.5 FINAL [facility] [place] [address] [place] 12[place] [address] 12/24 SPEP with immun ofixa tion SPE inter preta tion Results Below Normal serum total protein with normal electroph oretic pattern. FINAL [facility]2 [address] [address] [place] 12[place] [address] 12/24 SPEP with immun ofixa tion Immun ofixa tion, serum , inter preta tion Results Below No monoclona l peaks detected. FINAL [facility]2 [address] [address] [place] 12[place] [address] 12/24 [place] /robbins da with K/L ratio , free, serum (mg/d L) [place] light chain , free mg/L 3.3 19.4 52.7 High FINAL Roxi [facility]2 [address] [address] [place] 12[place] [address] 12/24 [place] /robbins da with K/L ratio , free, serum (mg/d L) [place] a light chain , free mg/L 5.7 26.3 29.0 High FINAL R[facility]2 [address] [address] [place] 12[place] [address] 12/24 [place] /robbins da with K/L ratio , free, [...] therapy of these disorders . FINAL Rox[facility]2 [address] [address] [place] 12[place] [address] 12/30 Echoc ardio gram See attacher d 02/17 Mammo graph y See attacher d 02/17 X-ray See attacher d 06/24 TIBC and perce nt sat w/ iron panel Iron mcg/dL 45.0 160.0 55 FINAL Mary Palanisa my [facility] [address] [address] [place] 12[place] [address] 06/24 TIBC and perce nt sat w/ iron panel TIBC mcg/dL 250.0 450.0 373 FINAL Mary Palanisa my [facility] [address] [address] [place] 12[place] [address] 06/24 TIBC and perce nt sat w/ iron panel Iron, % satur ation % 16.0 45.0 15 Low FINAL Mary Palanisa [facility] [address] [address] [place] 12[place] [address] 06/24 CBC w/ auto diff WBC 10^3/u l 4.8 10.8 4.2 Low FINAL Mary Palanisa my Whole Blood [facility] . [address] [place] [address] [employer]. [place] [address]. [place] [address] CLIA#[id number] 06/24 CBC w/ auto diff RBC 10^6/u l 4.2 5.4 3.76 Low FINAL Mary Palanisa my Whole Blood [facility] . [address] [place] [address] [employer] [facility]. [place] [address]. [facility] [address] CLIA#[id number] [id number] 06/24 CBC w/ auto diff HGB g/dl 12.0 16.0 11.0 Low FINAL Mary Palanisa my Whole Blood [facility] . [address] [place] [address] [employer]. [id number]. [facility] [address] CLIA#45D [id number] 06/24 CBC w/ auto diff HCT % 37.0 47.0 34.9 Low FINAL Mary Palanisa my Whole Blood [facility] . [address] [place] [address] [employer]. [id number]. [place] [address] CLIA#[id number] [id number] 06/24 CBC w/ auto diff MCV fl 81.0 99.0 92.8 FINAL Mary Palanisa my Whole Blood [facility] . [address] [place] [address] [employer]. [id number]. [place] [address] CLIA#45D [id number] 06/24 CBC w/ auto diff MCH pg 27.0 31.0 29.3 FINAL Mary Palanisa my Whole Blood [facility] . [address] [place] [address] [facility]. [id number]. [place] [address] CLIA#45D [id number] 06/24 CBC w/ auto diff MCHC g/dl 33.0 37.0 31.5 Low FINAL Mary Palanisa my Whole Blood [facility] . [address] [place] [address] [facility]. [id number]. [place] [address] CLIA#45D [id number] 06/24 CBC w/ auto diff RDW % 10.5 14.5 13.7 FINAL Mary Palanisa my Whole Blood [facility] . [address] [place], [place] [email or web address] [facility]. [id number]. [place] [address] CLIA#45D [id number] 06/24 CBC w/ auto diff PLT 10^3/u l 130.0 400.0 224 FINAL Mary Palanisa my Whole Blood [facility] . [address] [place], [place] [email or web address] [facility]. [id number]. [place] [address] CLIA#45D [id number] 06/24 CBC w/ auto diff MPV fl 9.4 12.3 10.7 FINAL Mary Palanisa my Whole Blood [facility] . [address] [place] [address] [employer]. [id number]. [place] [address] CLIA#45D [id number] 06/24 CBC w/ auto diff NRBC, % % 0.00 FINAL Mary Palanisa my Whole Blood [facility] . [address] [place], [place] [address] [facility]. [id number]. [place] [address] CLIA#45D [id number] 06/24 CBC w/ auto diff NRBC, absol [place], x 10^3/ uL 10^3/u L 0.000 FINAL Mary Palanisa my Whole Blood [facility] . [address] [place], [place] [address]. [id number]. [facility] [address] CLIA#45D [id number] 06/24 CBC w/ auto diff Auto CBC comme nts See Manual Diff FINAL Mary rodrigues Whole Blood [facility] . [address]. [id number]. [facility] [address] CLIA#45D [id number] 06/24 [place] /robbins da with K/L ratio , free, serum (mg/d L) [place] light chain , free mg/L 3.3 19.4 67.4 High FINAL Mary Chisa lilia [facility] [place] [address] [place] 12[place] [address] 06/24 [place] /robbins da with K/L ratio , free, serum (mg/d L) [place] a light chain , free mg/L 5.7 26.3 33.3 High FINAL Mary Johnanisa lilia [facility] [place] [address] [place] 12[place] [address] 06/24 [place] /robbins da with K/L ratio , free, [...] FINAL Mary Johnanisa lilia [facility] [place] [address] [place] 12[place] [address] 06/24 CMP Gluco se mg/dL 65.0 139.0 102 FINAL Mary Johnanisa lilia [facility] [place] [address] 12[place] [address] 06/24 CMP BUN mg/dL 7.0 25.0 24 FINAL Mary Palanisa [facility] [place] [address] [place] 12[place] [address] 06/24 CMP Creat inine mg/dL 0.6 1.0 1.44 High FINAL Mary Palanisa [facility] [place] [address] [place] 12[place] [address] 06/24 CMP GFR estim ate mL/min /1.73m 2 38 Low FINAL Mary Palanisa [facility] [place] [address] [place] 12[place] [address] 06/24 CMP BUN/C reati nine ratio 6.0 22.0 17 FINAL Mary Palanisa [facility] [place] [address] [place] 12[place] [address] 06/24 CMP Sodiu m mmol/L 135.0 146.0 143 FINAL Mary Palanisa [facility] [place] [address] [place] 12[place] [address] 06/24 CMP Potas sium mmol/L 3.5 5.3 5.1 FINAL Mary Palanisa [facility] [place] [address] [place] 12[place] [address] 06/24 CMP Chlor loly mmol/L 98.0 110.0 105 FINAL Mary Palanisa [facility] [place] [address] [place] 12[place] [address] 06/24 CMP CO2 mmol/L 20.0 32.0 29 FINAL Mary Palanisa [facility] [place] [address] [place] 12[place] [address] 06/24 CMP Anion gap, mmol/ L mmol/L 7.0 17.0 14 FINAL Mary Pal[facility]isa [facility] [place] [address] [place] 12[place] [address] 06/24 CMP Calci um mg/dL 8.6 10.4 9.4 FINAL Mary Palanisa [facility] [place] [address] [place] 12[place] [address] 06/24 CMP Total prote in g/dL 6.1 8.1 6.4 FINAL Mary Palanisa my [facility] [address] [address] [place] 12[place] [address] 06/24 CMP Album in g/dL 3.6 5.1 3.7 FINAL Mary Palanisa [facility] [address] [address] [place] 12[place] [address] 06/24 CMP Globu ashley g/dL 1.9 3.7 2.7 FINAL Mary Palanisa [facility] [place] [address] [place] 12[place] [address] 06/24 CMP A/G ratio 1.0 2.5 1.4 FINAL Mary Palanisa my [facility] [place] [address] [place] 12[place] [address] 06/24 CMP Bilir ubin, total mg/dL 0.2 1.2 0.5 FINAL Mary Palanisa [facility] [place] [address] [place] 12[place] [address] 06/24 CMP Alkal ine phosp hatas e U/L 37.0 153.0 92 FINAL Mary Palanisa [facility] [place] [address] [place] 12[place] [address] 06/24 CMP AST/S GOT U/L 10.0 35.0 14 FINAL Mary Palanisa [facility] [place] [address] [place] 12[place] [address] 06/24 CMP ALT/S GPT U/L 6.0 29.0 8 FINAL Mary Palanisa my [facility] [place] [address] [place] 12[place] [address] 06/24 Félix aragon al Seg % % 40.0 77.0 42 FINAL Mary Palanisa my Whole Blood [facility] . [address] [place] [address] Drive. [id number]. [place] [id number] CLIA#45D [id number] 06/24 Félix aragon al Lymph ocyte % % 15.0 41.0 38 FINAL Mary Palanisa my Whole Blood [facility] . [address] [place] [address]. [id number]. [place] [address] CLIA#45D [id number] 06/24 Manua l diffe renti al Monoc yte % % 3.0 11.0 11 FINAL Mary Palanisa my Whole Blood [facility] . [address] [place] [address]. [id number]. [place] [address] CLIA#45D [id number] 06/24 Manua l diffe renti al Eosin ophil % % 0.0 3.0 6 High FINAL Mary Palanisa my Whole Blood [facility] . [address] [place] [address]. [id number]. [address] [place] [address] CLIA#45D [id number] 06/24 Manua l diffe renti al Basop hil % % 0.0 1.0 3 High FINAL Mary Palanisa my Whole Blood [facility] . [address] [place] [address]. [id number]. [address] [place] [address] CLIA#[id number] 06/24 Manua l diffe renti al ANC (M) 10^3/U L 1.5 6.5 1.74 FINAL Mary Palanisa my Whole Blood [facility] . [address] [place] [address]. [id number]. [place] [address] CLIA#45D [id number] 06/24 Manua l diffe renti al LY# (M) 10^3/u L 1.2 3.4 1.58 FINAL Mary Palanisa my Whole Blood [facility] . [address] [place] [address]. [id number]. [address] [place] [address] CLIA#45D [id number] 06/24 Manua l diffe renti al MO# (M) 10^3/U L 0.0 1.0 0.46 FINAL Mary Palanisa my Whole Blood [facility] . [address] [place] [address]. [id number]. [place] [address] CLIA#45D [id number] 06/24 Manua l diffe renti al EO# (M) 10^3/U L 0.0 0.3 0.25 FINAL Mary Palanisa my Whole Blood [facility] . [address] [place] [address]. [id number]. [address] [place] [address] CLIA#45D [id number] 06/24 Manua jen diffe renti al Basop hil count (M) 10^3/U L 0.0 0.2 0.12 FINAL Mary Palanisa my Whole Blood [facility] . [address] [place] [address]. [id number]. [address] [place] [address] CLIA#45D [id number] 06/24 Manua l diffe renti al Plate let estim ate 10^3 130.0 400.0 Agrees with Analyze r FINAL Mary Palanisa my Whole Blood [facility] . [address] [place] [address]. [id number]. [place] [address] CLIA#45D [id number] 06/24 Eliana jen castilloe renti al RBC morph Normal FINAL Mary Palanisa my Whole Blood [facility] . [address] [place] [address]. [id number]. [address] [place] [address] CLIA#45D [id number] 06/24 Vitam in B12 panel Vitam in B12 pg/mL 200.0 1100.0 446 FINAL Mary Palanisa my [facility] [place] [address] 12.[facility] [address] 06/24 Folat e panel Folat e, serum ng/mL 4.7 (Note)Ref erence ranges for adults: Low <3.4 ng/mL Borderlin e 3.4 - 5.4 ng/mL Normal >5.4 ng/mL FINAL Mary Palanisa my [facility] [place] [address] Building 12.Jonathan [facility] [address] 06/24 Juliet tin panel Juliet tin ng/mL 16.0 288.0 39 FINAL Mary Palanisa my [facility] [place] [address] Building 12.Jonathan [facility] [address] 06/24 SPEP with immun ofixa tion Album in, SPE g/dL 3.1 5.5 3.6 FINAL Mary Palanisa my [facility] [place] [address] [place] 12[place] [address] 06/24 SPEP with immun ofixa tion Alpha -1 globu ashley g/dL 0.2 0.5 0.3 FINAL Mary Palanisa [facility] [place] [address] [place] 12[place] [address] 06/24 SPEP with immun ofixa tion Alpha -2 globu ashley g/dL 0.4 1.0 0.7 FINAL Mary Palanisa my [facility] [place] [address] [place] 12[place] [address] 06/24 SPEP with immun ofixa tion Beta globu ashley g/dL 0.5 1.1 0.8 FINAL Mary Palanisa [facility] [place] [address] [place] 12[place] [address] 06/24 SPEP with immun ofixa tion Gamma globu ashley g/dL 0.7 1.5 1.0 FINAL Mary Palanisa [facility] [place] [address] [place] 12[place] [address] 06/24 SPEP with immun ofixa tion Parap rotei n band, g/dL g/dL None FINAL Mary Palanisa [facility] [place] [address] [place] 12[place] [address] 06/24 SPEP with immun ofixa tion Total prote in elect ropho resis g/dL 5.7 8.2 6.5 FINAL Mary Palanisa [facility] [place] [address] [place] 12[place] [address] 06/24 SPEP with immun ofixa tion SPE inter preta tion Results Below Abnormal appearing globulin peak, possibly monoclona l. If indicated , recommend immunotyp ing (Test Code: IES) for further evaluatio n. If the SPEP was orderedwi reflex, immunotyp ing will be resulted upon completio n. FINAL Mary Palanisa my [facility] [place] [address] [place] 12[place] [address] 06/24 SPEP with immun ofixa tion Immun ofixa tion, serum , inter preta tion Results Below No monoclona l peaks detected. FINAL Mary Palanisa my [facility]2 [address] [address] [place] 12[place] [address] 12/30 CBC w/ auto diff WBC 10^3/u l 4.8 10.8 4.9 FINAL Mary Palanisa my Whole Blood [facility] . [address] [place], [place] [address]. [id number]. [place] [address] CLIA#45D [id number] 12/30 CBC w/ auto diff RBC 10^6/u l 4.2 5.4 3.66 Low FINAL Mary Palanisa my Whole Blood [facility] . [address] [place], [place] [address] [facility]. [id number]. [place] [address] CLIA#45D [id number] 12/30 CBC w/ auto diff HGB g/dl 12.0 16.0 10.6 Low FINAL Mary Palanisa my Whole Blood [facility] . [address] [place], [place] [address] [facility]. [id number]. [place] [address] CLIA#45D [id number] 12/30 CBC w/ auto diff HCT % 37.0 47.0 33.8 Low FINAL Mary Palanisa my Whole Blood [facility] . [address] [place], [place] [address] [facility]. [id number]. [place] [address] CLIA#45D [id number] 12/30 CBC w/ auto diff MCV fl 81.0 99.0 92.3 FINAL Mary Palanisa my Whole Blood [facility] . [address] [place], [place] [address] [facility]. [id number]. [place] [address] CLIA#45D [id number] 12/30 CBC w/ auto diff MCH pg 27.0 31.0 29.0 FINAL Mary Palanisa my Whole Blood [facility] . [address] [place], [place] [address]. [id number]. [place] [address] CLIA#45D [id number] 12/30 CBC w/ auto diff MCHC g/dl 33.0 37.0 31.4 Low FINAL Mary Palanisa my Whole Blood [facility] . [address] [place], [place] [address]. [id number]. [place] [address] CLIA#45D [id number] 12/30 CBC w/ auto diff RDW % 10.5 14.5 14.3 FINAL Mary Palanisa my Whole Blood [facility] . [address] [place], [place] [email or web address] [facility]. [id number]. [place] [address] CLIA#45D [id number] 12/30 CBC w/ auto diff PLT 10^3/u l 130.0 400.0 294 FINAL Mary Palanisa my Whole Blood [facility] . [address] [place], [place] [email or web address] [facility]. [id number]. [place] [address] CLIA#45D [id number] 12/30 CBC w/ auto diff MPV fl 9.4 12.3 10.1 FINAL Mary Palanisa my Whole Blood [facility] . [address] [place], [place] [email or web address] [facility]. [id number]. [place] [address] CLIA#45D [id number] 12/30 CBC w/ auto diff Jordy % % 40.0 77.0 43.4 FINAL Mary Palanisa my Whole Blood [facility] . [address] [place], [place] [email or web address] [facility]. [id number]. [place] [address] CLIA#45D [id number] 12/30 CBC w/ auto diff Jordy # (ANC) 10^3/u l 1.5 6.5 2.1 FINAL Mary Palanisa my Whole Blood [facility] . [address] [place], [place] [email or web address] [facility]. [id number]. [place] [address] CLIA#45D [id number] 12/30 CBC w/ auto diff LY % % 15.0 41.0 31.7 FINAL Mary Palanisa my Whole Blood [facility] . [address] [place] [address] [employer] [facility]. [id number]. [place] [address] CLIA#45D [id number] 12/30 CBC w/ auto diff LY # 10^3/u l 1.2 3.4 1.5 FINAL Mary Palanisa my Whole Blood [facility] . [address] [place] [address] [employer]. [id number]. [place] [address] CLIA#45D [id number] 12/30 CBC w/ auto diff MO % % 3.0 11.0 13.6 High FINAL Mary Palanisa my Whole Blood [facility] . [address] [place], [place] [email or web address] [facility]. [id number]. [place] [address] CLIA#45D [id number] 12/30 CBC w/ auto diff MO # 10^3/u l 0.0 1.0 0.7 FINAL Mary Palanisa my Whole Blood [facility] . [address] [place] [address]. [id number]. [place] [address] CLIA#45D [id number] 12/30 CBC w/ auto diff EO % % 0.0 3.0 9.3 High FINAL Mary Palanisa my Whole Blood [facility] . [address] [place] [address]. [id number]. [place] [address] CLIA#45D [id number] 12/30 CBC w/ auto diff EO # 10^3/u L 0.0 0.3 0.5 High FINAL Mary Palanisa my Whole Blood [facility] . [address] [place] [address]. [id number]. [place] [address] CLIA#45D [id number] 12/30 CBC w/ auto diff BA % % 0.0 1.0 1.4 High FINAL Mary Palanisa my Whole Blood [facility] . [address] [place] [address]. [id number]. [place] [address] CLIA#45D [id number] 12/30 CBC w/ auto diff BA # 10^3/u L 0.0 0.2 0.1 FINAL Mary Palanisa my Whole Blood [facility] . [address] [place], [place] [email or web address] [facility]. [id number]. [place] [address] CLIA#45D [id number] 12/30 CBC w/ auto diff IG % % 0.0 0.5 0.60 High FINAL Mary Palanisa my Whole Blood [facility] . [address] [place] [address] [employer]. [id number]. [place] [address] CLIA#45D [id number] 12/30 CBC w/ auto diff IG # 10^3/u L 0.0 0.03 0.03 FINAL Mary Palanisa my Whole Blood [facility] . [address] [place], [place] [email or web address] [facility]. [id number]. [place] [address] CLIA#45D [id number] 12/30 CBC w/ auto diff NRBC, % % 0.00 FINAL Mary Palanisa my Whole Blood [facility] . [address] [place] [address]. [id number]. [place] [address] CLIA#45D [id number] 12/30 CBC w/ auto diff NRBC, absol [place], x 10^3/ uL 10^3/u L 0.000 FINAL Mary Palanisa my Whole Blood [facility] . [address] [place] [address]. [id number]. [place] [address] CLIA#45D [id number] 12/30 CMP Sodiu m mmol/L 136.0 145.0 138 FINAL Mary Palanisa my Plasma [facility] . [address] [place] [address]. [id number]. [place] [address] CLIA#45D [id number] 12/30 CMP Potas sium mmol/L 3.5 5.1 3.8 FINAL Mary Palanisa my Plasma [facility] . [address] [place] [address]. [id number]. [place] [address] CLIA#45D [id number] 12/30 CMP Chlor loly mmol/L 97.0 107.0 101 FINAL Mary Palanisa my Plasma [facility] . [address] [place] [address]. [id number]. [place] [address] CLIA#45D [id number] 12/30 CMP CO2 mmol/L 21.0 32.0 30 FINAL Mary Palanisa my Plasma [facility] . [address] [place] [address] [employer] [facility]. [id number]. [place] [address] CLIA#45D [id number] 12/30 CMP Gluco se mg/dL 70.0 110.0 107 FINAL Mary Palanisa my Plasma [facility] . [address] [place] [address] [employer] [facility]. [id number]. [place] [address] CLIA#45D [id number] 12/30 CMP BUN mg/dL 7.0 18.0 23 High FINAL Mary Palanisa my Plasma [facility] . [address] [place] [address]. [id number]. [facility] [address] CLIA#45D [id number] 12/30 CMP Creat inine , mg/dL mg/dL 0.55 1.3 1.56 High FINAL Mary Palanisa my Plasma [facility] . [address] [place] [address]. [id number]. [facility] [address] CLIA#45D [id number] 12/30 CMP GFR estim ate ml/min /1.73m 2 32 Low eFR based on CKD-EPI to estimate renal function. If multiply results by 1.159.60- 89 mL/min/1. 73m^2 without kidney damage may be normal.60 -89 mL/min/1. 73m^2 for 3 months or more, along with kidney damage, may indicate early kidney disease.I f , multiply result by 1.159. FINAL Mary Palanisa my Plasma [facility] . [address] [place] [address]. [id number]. [place] [address] CLIA#45D [id number] 12/30 CMP BUN/C reati nine ratio Ratio 6.0 25.0 14.7 FINAL Mary Palanisa my Plasma [facility] . [address] [place] [address]. [id number]. [facility] [address] CLIA#45D [id number] 12/30 CMP Calci um mg/dL 8.5 10.1 8.7 FINAL Mary Palanisa my Plasma [facility] . [address] [place], [place] [email or web address] [facility]. [id number]. [facility] [address] CLIA#45D [id number] 12/30 CMP Total prote in g/dL 6.4 8.2 7.1 FINAL Mary Palanisa my Plasma [facility] . [address] [place] [address]. [id number]. [facility] [address] CLIA#45D [id number] 12/30 CMP Album in g/dL 3.4 5.0 2.9 Low FINAL Mary Palanisa my Plasma [facility] . [address] [place] [address]. [id number]. [place] [address] CLIA#45D [id number] 12/30 CMP A/G ratio Ratio 0.8 2.0 0.7 Low FINAL Mary Palanisa my Plasma [facility] . [address] [place] [address]. [id number]. [place] [address] CLIA#45D [id number] 12/30 CMP Bilir ubin, total mg/dL 0.1 1.0 0.6 FINAL Mary Palanisa my Plasma [facility] . [address] [place] [address]. [id number]. [place] [address] CLIA#45D [id number] 12/30 CMP Alkal ine phosp hatas e U/L 46.0 116.0 99 FINAL Mary Palanisa my Plasma [facility] . [address] [place] [address]. [id number]. [place] [address] CLIA#45D [id number] 12/30 CMP AST/S GOT U/L 15.0 37.0 18 FINAL Mary Palanisa my Plasma [facility] . [address] [place] [address]. [id number]. [place] [address] CLIA#45D [id number] 12/30 CMP ALT/S GPT U/L 14.0 59.0 21 FINAL Mary Palanisa my Plasma [facility] . [address] [place] [address]. [id number]. [place] [address] CLIA#45D [id number] 12/30 TIBC and perce nt sat w/ iron panel Iron ug/dL 50.0 170.0 43.00 Low FINAL Mary Palanisa my Serum [facility] . [address] [place] [address]. [id number]. [place] [address] CLIA#45D [id number] 12/30 TIBC and perce nt sat w/ iron panel TIBC ug/dL 250.0 450.0 442.00 FINAL Mary Palanisa my Serum [facility] . [address] [place] [address]. [id number]. [place] [address] CLIA#45D [id number] 12/30 TIBC and perce nt sat w/ iron panel Iron, % satur ation % 20.0 55.0 9.7 Low FINAL Mary Palanisa my Serum [facility] . [address] [place] [address]. [id number]. [place] [address] CLIA#45D [id number] 12/30 Juliet tin panel Juliet tin ng/mL 8.0 252.0 59 FINAL Mary Pal[facility] [facility] . [address] [place] [address]. [id number]. [place] [id number] CLIA#[id number] 12/30 Folat e panel Folat e, serum ng/mL 3.3 (Note)Ref erence ranges for adults: Low <3.4 ng/mL Borderlin e 3.4 - 5.4 ng/mL Normal >5.4 ng/mL FINAL Mary Palanisa my Serum [facility]2 [address] [address] [place] 12[place] [address] 12/30 SPEP with immun ofixa tion Album in, SPE g/dL 3.1 5.5 3.4 FINAL Mary Palanisa my Serum [facility].2 [address] [address] [place] 12[place] [address] 12/30 SPEP with immun ofixa tion Alpha -1 globu ashley g/dL 0.2 0.5 0.4 FINAL Mary Palanisa my Serum [facility].2 [address] [address] [place] 12[place] [address] 12/30 SPEP with immun ofixa tion Alpha -2 globu ashley g/dL 0.4 1.0 0.8 FINAL Mary Palanisa my Serum [facility].2 [address] [address] [place] 12[place] [address] 12/30 SPEP with immun ofixa tion Beta globu ashley g/dL 0.5 1.1 1.0 FINAL Mary Palanisa my Serum [facility].2 [address] [address] [place] 12[place] [address] 12/30 SPEP with immun ofixa tion Gamma globu ashley g/dL 0.7 1.5 1.0 FINAL Mary Palanisa my [facility].[address] [place] [address] [place] 12[place] [address] 12/30 SPEP with immun ofixa tion Parap rotei n band, g/dL g/dL None FINAL Mary rodrigues Serum [facility].[address] [place] [address] [place] 12[place] [address] 12/30 SPEP with immun ofixa tion Total prote in elect ropho resis g/dL 5.7 8.2 6.6 FINAL Mary rodrigues Serum [facility].[address] [place] [address] 12.[place] [address] 12/30 SPEP with immun ofixa tion SPE inter preta tion Results Below Abnormal appearing globulin peak, possibly monoclona l. If indicated , recommend immunotyp ing (Test Code: IES) for further evaluatio n. If the SPEP was orderedwi th reflex, immunotyp ing will be resulted upon completio n. FINAL Mary rodrigues Serum [facility].[address] [place] [address] 12.[place] [address] 12/30 SPEP with immun ofixa tion Immun ofixa tion, serum , inter preta tion Results Below No monoclona l peaks detected. FINAL Mary rodrigues Serum [facility].[address] [place] [address] [place] 12[place] [address] 12/30 [place] /robbins da with K/L ratio , free, serum (mg/d L) [place] light [employer] , free mg/L 3.3 19.4 70.1 High FINAL Mary rodrigues Serum [facility].[address] [place] [address] [place] 12[place] [address] 12/30 [place] /robbins da with K/L ratio , free, serum (mg/d L) [place] a light chain , free mg/L 5.7 26.3 37.4 High FINAL Mary rodrigues [facility].[address] [place] [address] 12[place] [address] 12/30 [place] /robbins da with K/L ratio , free, [...] Mary Palanisa my Serum [facility].2 [address] [address] Building 12.[facility] [address] 12/30 Vitam in B12 panel Vitam in B12 pg/mL 200.0 1100.0 481 FINAL Mary Palanisa my Serum [facility].[address] 12[address] [address] 04/08 CBC w/aut o diff with refle x WBC 10^3/u l 4.8 10.8 5.9 FINAL Mary Palanisa my Whole Blood [facility] . [address] [place] [address]. [place] [address]. [place] [address] CLIA#45D [id number] 04/08 CBC w/aut o diff with refle x RBC 10^6/u l 4.2 5.4 3.90 Low FINAL Mary Palanisa my Whole Blood [facility] . [address] [place] [address]. [id number]. [facility] [place] [facility] [address] CLIA#45D [id number] 04/08 CBC w/aut o diff with refle x HGB g/dl 12.0 16.0 12.0 FINAL Mary Palanisa my Whole Blood [facility] . [address] [place] [address]. [id number]. [facility] [address] CLIA#45D [id number] 04/08 CBC w/aut o diff with refle x HCT % 37.0 47.0 38.2 FINAL Mary Palanisa my Whole Blood [facility] . [address] [place] [address]. [id number]. [place] [address] CLIA#45D [id number] 04/08 CBC w/aut o diff with refle x MCV fl 81.0 99.0 97.9 FINAL Mary Palanisa my Whole Blood [facility] . [address] [place] [address]. [id number]. [place] [address] CLIA#45D [id number] 04/08 CBC w/aut o diff with refle x MCH pg 27.0 31.0 30.8 FINAL Mary Palanisa my Whole Blood [facility] . [address] [place] [address]. [id number]. [place] [address] CLIA#45D [id number] 04/08 CBC w/aut o diff with refle x MCHC g/dl 33.0 37.0 31.4 Low FINAL Mary Palanisa my Whole Blood [facility] . [address] [place] [address]. [id number]. [place] [address] CLIA#45D [id number] 04/08 CBC w/aut o diff with refle x RDW % 10.5 14.5 15.8 High FINAL Mary Palanisa my Whole Blood [facility] . [address] [place] [address]. [id number]. [place] [address] CLIA#45D [id number] 04/08 CBC w/aut o diff with refle x PLT 10^3/u l 130.0 400.0 234 FINAL Mary Palanisa my Whole Blood [facility] . [address] [place] [address]. [id number]. [place] [address] CLIA#45D [id number] 04/08 CBC w/aut o diff with refle x MPV fl 9.4 12.3 10.4 FINAL Mary Palanisa my Whole Blood [facility] . [address] [place] [address]. [id number]. [place] [address] CLIA#45D [id number] 04/08 CBC w/aut o diff with refle x Jordy % % 40.0 77.0 60.9 FINAL Mary Palanisa my Whole Blood [facility] . [address] [place] [address]. [id number]. [place] [address] CLIA#45D [id number] 04/08 CBC w/aut o diff with refle x Jordy # (ANC) 10^3/u l 1.5 6.5 3.6 FINAL Mary Palanisa my Whole Blood [facility] . [address] [place] [address]. [id number]. [place] [address] CLIA#45D [id number] 04/08 CBC w/aut o diff with refle x LY % % 15.0 41.0 24.4 FINAL Mary Palanisa my Whole Blood [facility] . [address] [place] [address]. [id number]. [place] [address] CLIA#45D [id number] 04/08 CBC w/aut o diff with refle x LY # 10^3/u l 1.2 3.4 1.4 FINAL Mary Palanisa my Whole Blood [facility] . [address] [place] [address]. [id number]. [place] [address] CLIA#45D [id number] 04/08 CBC w/aut o diff with refle x MO % % 3.0 11.0 9.4 FINAL Mary Palanisa my Whole Blood [facility] . [address] [place] [address]. [id number]. [place] [address] CLIA#45D [id number] 04/08 CBC w/aut o diff with refle x MO # 10^3/u l 0.0 1.0 0.6 FINAL Mary Palanisa my Whole Blood [facility] . [address] [place] [address]. [id number]. [place] [address] CLIA#45D [id number] 04/08 CBC w/aut o diff with refle x EO % % 0.0 3.0 2.6 FINAL Mary Palanisa my Whole Blood [facility] . [address] [place] [address]. [id number]. [place] [address] CLIA#45D [id number] 04/08 CBC w/aut o diff with refle x EO # 10^3/u L 0.0 0.3 0.2 FINAL Mary Palanisa my Whole Blood [facility] . [address] [place] [address]. [id number]. [place] [address] CLIA#45D [id number] 04/08 CBC w/aut o diff with refle x BA % % 0.0 1.0 1.5 High FINAL Mary Palanisa my Whole Blood [facility] . [address] [place] [address]. [id number]. [place] [address] CLIA#45D [id number] 04/08 CBC w/aut o diff with refle x BA # 10^3/u L 0.0 0.2 0.1 FINAL Mary Palanisa my Whole Blood [facility] . [address] [place] [address]. [id number]. [place] [address] CLIA#45D [id number] 04/08 CBC w/aut o diff with refle x IG % % 0.0 0.5 1.20 High FINAL Mary Palanisa my Whole Blood [facility] . [address] [place] [address]. [id number]. [place] [address] CLIA#45D [id number] 04/08 CBC w/aut o diff with refle x IG # 10^3/u L 0.0 0.03 0.07 High FINAL Mary Palanisa my Whole Blood [facility] . [address] [place] [address]. [id number]. [place] [address] CLIA#45D [id number] 04/08 CBC w/aut o diff with refle x NRBC, % % 0.00 FINAL Mary Palanisa my Whole Blood [facility] . [address] [place] [address]. [id number]. [place] [address] CLIA#45D [id number] 04/08 CBC w/aut o diff with refle x NRBC, absol [place], x 10^3/ uL 10^3/u L 0.000 FINAL Mary Palanisa my Whole Blood [facility] . [address] [place] [address]. [id number]. [place] [address] CLIA#45D [id number] 04/08 Juliet tin panel Juliet tin ng/mL 8.0 252.0 460 High FINAL Mary Palanisa my Serum [facility] . [address] [place] [address]. [id number]. [place] [address] CLIA#45D [id number] 04/08 TIBC and perce nt sat w/ iron panel Iron ug/dL 50.0 170.0 87.00 FINAL Mary Palanisa my Serum [facility] . [address] [place] [address]. [id number]. [place] [address] CLIA#45D [id number] 04/08 TIBC and perce nt sat w/ iron panel TIBC ug/dL 250.0 450.0 347.00 FINAL Mary Palanisa my Serum [facility] . [address] [place] [address]. [id number]. [facility] [place] [address] CLIA#45D [id number] 04/08 TIBC and perce nt sat w/ iron panel Iron, % satur ation % 20.0 55.0 25.1 FINAL Mary Palanisa my Serum [facility] . [address] [place] [address]. [id number]. [place] [id number] CLIA#45D [id number] 07/07 [place] /robbins da with K/L ratio , free, serum (mg/d L) [place] light [employer] , free mg/L 3.3 19.4 45.9 High FINAL Mary Palanisa Serum [facility].2 [address] [address] [address] 12.[facility] [address] 07/07 [place] /robbins da with K/L ratio , free, serum (mg/d L) [place] a light chain , free mg/L 5.7 26.3 26.5 High FINAL Mary Palanisa my Serum [facility].2 [address] [address] [address] 12.[facility] [address] 07/07 [place] /robbins da with K/L ratio , free, [...] Mary Palanisa my Serum [facility].2 [address] [address] [place] 12[place] [address] 07/07 CBC w/aut o diff with refle x WBC 10^3/u l 4.8 10.8 5.5 FINAL Mary Palanisa my Whole Blood [facility] . [address] [place], [place] [address]. [id number]. [place] [address] CLIA#45D [id number] 07/07 CBC w/aut o diff with refle x RBC 10^6/u l 4.2 5.4 3.76 Low FINAL Mary Palanisa my Whole Blood [facility] . [address] [place], [place] [address]. [id number]. [place] [address] CLIA#45D [id number] 07/07 CBC w/aut o diff with refle x HGB g/dl 12.0 16.0 11.3 Low FINAL Mary Palanisa my Whole Blood [facility] . [address] [place], [place] [address] [facility]. [id number]. [facility] [address] CLIA#45D [id number] 07/07 CBC w/aut o diff with refle x HCT % 37.0 47.0 35.5 Low FINAL Mary Palanisa my Whole Blood [facility] . [address] [place], [place] [address]. [id number]. [place] [address] CLIA#45D [id number] 07/07 CBC w/aut o diff with refle x MCV fl 81.0 99.0 94.4 FINAL Mary Palanisa my Whole [facility] . [facility] [id number]. [place] [address] CLIA#45D [id number] 07/07 CBC w/aut o diff with refle x MCH pg 27.0 31.0 30.1 FINAL Mary Palanisa my Whole Blood [facility] . [address] [place] [address]. [id number]. [place] [address] CLIA#45D [id number] 07/07 CBC w/aut o diff with refle x MCHC g/dl 33.0 37.0 31.8 Low FINAL Mary Palanisa my Whole Blood [facility] . [address] [place] [address]. [id number]. [place] [address] CLIA#45D [id number] 07/07 CBC w/aut o diff with refle x RDW % 10.5 14.5 13.2 FINAL Mary Palanisa my Whole Blood [facility] . [address] [place] [address]. [id number]. [place] [address] CLIA#45D [id number] 07/07 CBC w/aut o diff with refle x PLT 10^3/u l 130.0 400.0 277 FINAL Mary Palanisa my Whole Blood [facility] . [address] [place] [address]. [id number]. [place] [address] CLIA#45D [id number] 07/07 CBC w/aut o diff with refle x MPV fl 9.4 12.3 10.3 FINAL Mary Palanisa my Whole Blood [facility] . [address] [place] [address]. [id number]. [place] [address] CLIA#45D [id number] 07/07 CBC w/aut o diff with refle x Jordy % % 40.0 77.0 44.9 FINAL Mary Palanisa my Whole Blood [facility] . [address] [place] [address]. [id number]. [place] [address] CLIA#45D [id number] 07/07 CBC w/aut o diff with refle x Jordy # (ANC) 10^3/u l 1.5 6.5 2.5 FINAL Mary Palanisa my Whole Blood [facility] . [address] [place] [address]. [id number]. [place] [address] CLIA#45D [id number] 07/07 CBC w/aut o diff with refle x LY % % 15.0 41.0 29.0 FINAL Mary Palanisa my Whole Blood [facility] . [address] [place] [address]. [id number]. [place] [address] CLIA#45D [id number] 07/07 CBC w/aut o diff with refle x LY # 10^3/u l 1.2 3.4 1.6 FINAL Mary Palanisa my Whole Blood [facility] . [address] [place] [address]. [id number]. [place] [address] CLIA#45D [id number] 07/07 CBC w/aut o diff with refle x MO % % 3.0 11.0 11.6 High FINAL Mary Palanisa my Whole Blood [facility] . [address] [place] [address]. [id number]. [place] [address] CLIA#45D [id number] 07/07 CBC w/aut o diff with refle x MO # 10^3/u l 0.0 1.0 0.6 FINAL Mary Palanisa my Whole Blood [facility] . [address] [place] [address]. [id number]. [place] [address] CLIA#45D [id number] 07/07 CBC w/aut o diff with refle x EO % % 0.0 3.0 12.5 High FINAL Mary Palanisa my Whole Blood [facility] . [address] [place] [address]. [id number]. [place] [address] CLIA#45D [id number] 07/07 CBC w/aut o diff with refle x EO # 10^3/u L 0.0 0.3 0.7 High FINAL Mary Palanisa my Whole Blood [facility] . [address] [place] [address]. [id number]. [place] [address] CLIA#45D [id number] 07/07 CBC w/aut o diff with refle x BA % % 0.0 1.0 0.9 FINAL Mary Palanisa my Whole Blood [facility] . [address] [place], [place] [email or web address] [facility]. [id number]. [place] [address] CLIA#45D [id number] 07/07 CBC w/aut o diff with refle x BA # 10^3/u L 0.0 0.2 0.1 FINAL Mary Palanisa my Whole Blood [facility] . [address] [place] [address]. [id number]. [place] [address] CLIA#45D [id number] 07/07 CBC w/aut o diff with refle x IG % % 0.0 0.5 1.10 High FINAL Mary Palanisa my Whole Blood [facility] . [address] [place], [place] [email or web address] [facility]. [id number]. [place] [address] CLIA#45D [id number] 07/07 CBC w/aut o diff with refle x IG # 10^3/u L 0.0 0.03 0.06 High FINAL Mary Palanisa my Whole Blood [facility] . [address] [place], [place] [email or web address] [facility]. [id number]. [place] [address] CLIA#45D [id number] 07/07 CBC w/aut o diff with refle x NRBC, % % 0.0 0.2 0.0 FINAL Mary Palanisa my Whole Blood [facility] . [address] [place] [address]. [id number]. [place] [address] CLIA#45D [id number] 07/07 CBC w/aut o diff with refle x NRBC, absol [place], x 10^3/ uL 10^3/u L 0.0 0.012 0.000 FINAL Mary Palanisa my Whole Blood [facility] . [address] [place], [place] [email or web address] [facility]. [id number]. [place] [address] CLIA#45D [id number] 07/07 TIBC and perce nt sat w/ iron panel Iron ug/dL 50.0 170.0 75.00 FINAL Mary Palanisa my Serum [facility] . [address] [place], [place] [email or web address] [facility]. [id number]. [place] [address] CLIA#45D [id number] 07/07 TIBC and perce nt sat w/ iron panel TIBC ug/dL 250.0 450.0 272.00 FINAL Mary Palanisa my Serum [facility] . [address] [place] [address]. [id number]. [facility] [address] CLIA#45D [id number] 07/07 TIBC and perce nt sat w/ iron panel Iron, % satur ation % 20.0 55.0 27.6 FINAL Mary Palanisa my Serum [facility] . [address] [place] [address]. [id number]. [place] [id number] CLIA#45D [id number] 07/07 Juliet tin panel Juliet tin ng/mL 8.0 252.0 738 High FINAL Mary Palanisa my Serum [facility] . [address] [place] [address]. [id number]. [place] [id number] CLIA#45D [id number] 07/07 SPEP with immun ofixa tion Album in, SPE g/dL 3.1 5.5 3.2 FINAL Mary Palanisa my Serum [facility].[address] [place] [address] [place] 12[place] [address] 07/07 SPEP with immun ofixa tion Alpha -1 globu ashley g/dL 0.2 0.5 0.5 FINAL Mary Palanisa my Serum [facility].[address] [place] [address] [place] 12[place] [address] 07/07 SPEP with immun ofixa tion Alpha -2 globu ashley g/dL 0.4 1.0 0.8 FINAL Mary Palanisa my Serum [facility].[address] [place] [address] [address] 12[place] [address] 07/07 SPEP with immun ofixa tion Beta globu ashley g/dL 0.5 1.1 0.7 FINAL Mary Palanisa my Serum [facility].[address] [place] [address] [place] 12[place] [address] 07/07 SPEP with immun ofixa tion Gamma globu ashley g/dL 0.7 1.5 0.9 FINAL Mary Palanisa my Serum [facility].[address] [place] [address] [place] 12[place] [address] 07/07 SPEP with immun ofixa tion Parap rotei n band, g/dL g/dL None FINAL Mary Chisa my Serum [facility].2 [address] [address] [place] [address] [address] 07/07 SPEP with immun ofixa tion Total prote in elect ropho resis g/dL 5.7 8.2 6.1 FINAL Mary Johnanisa my Serum [facility].2 [address] [address] [place] [address] 07/07 SPEP with immun ofixa tion SPE inter preta tion Results Below Normal serum total protein with normal electroph oretic pattern. FINAL Mary Chisa my Serum [facility].2 [address] [address] [place] [address] [address] 07/07 SPEP with immun ofixa tion Immun ofixa tion, serum , inter preta tion Results Below No monoclona l peaks detected. FINAL Mary Johnanisa my Serum [facility].2 [address] [address] [place] [address] [address] 07/07 CMP Sodiu m mmol/L 136.0 145.0 137 FINAL Mary Johnanisa my Plasma [facility] . [address] [place] [address]. [place] [address]. [place] [address] CLIA#45D [id number] 07/07 CMP Potas sium mmol/L 3.5 5.1 4.1 FINAL Mary Palanisa my Plasma [facility] . [address] [place] [address]. [id number]. [place] [address] CLIA#45D [id number] 07/07 CMP Chlor loly mmol/L 97.0 107.0 101 FINAL Mary Palanisa my Plasma [facility] . [address] [place] [address] [employer] [facility]. [id number]. [place] [address] CLIA#45D [id number] 07/07 CMP CO2 mmol/L 21.0 32.0 32 FINAL Mary Palanisa my Plasma [facility] . [address] [place] [address]. [id number]. [place] [address] CLIA#45D [id number] 07/07 CMP Gluco se mg/dL 74.0 106.0 115 High FINAL Mary Palanisa my Plasma [facility] . [address] [place] [address]. [id number]. [place] [id number] CLIA#45D [id number] 07/07 CMP BUN mg/dL 7.0 18.0 21 High FINAL Mary Palanisa my Plasma [facility] . [address] [place] [address]. [id number]. [place] [address] CLIA#45D [id number] 07/07 CMP Creat inine , mg/dL mg/dL 0.55 1.3 1.50 High FINAL Mary Palanisa my Plasma [facility] . [address] [place] [address]. [id number]. [place] [address] CLIA#45D [id number] 07/07 CMP GFR estim ate ml/min /1.73m 2 36 Low Result based on the eGFR 2020 calculati on.60-89 mL/min/1. 73m^2 without kidney damage may be normal.60 -89 mL/min/1. 73m^2 for 3 months or more, along with kidney damage, may indicate early kidney disease.C alculatio n modified to the 2020 formula effective 01/16/23. FINAL Mary Palanisa my Plasma [facility] . [address] [place] [address]. [id number]. [place] [id number] CLIA#45D [id number] 07/07 CMP BUN/C reati nine ratio Ratio 6.0 25.0 14.0 FINAL Mary Palanisa my Plasma [facility] . [address] [place] [address]. [id number]. [place] [id number] CLIA#45D [id number] 07/07 CMP Calci um mg/dL 8.5 10.1 9.6 FINAL Mary Palanisa my Plasma [facility] . [address] [place] [address]. [id number]. [place] [id number] CLIA#45D [id number] 07/07 CMP Total prote in g/dL 6.4 8.2 6.5 FINAL Mary Palanisa my Plasma [facility] . [address] [place] [address] [employer] [facility]. [id number]. [place] [address] CLIA#45D [id number] 07/07 CMP Album in g/dL 3.4 5.0 2.9 Low FINAL Mary Palanisa my Plasma [facility] . [address] [place], [place] [email or web address] [facility]. [id number]. [place] [address] CLIA#45D [id number] 07/07 CMP A/G ratio Ratio 0.8 2.0 0.8 FINAL Mary Palanisa my Plasma [facility] . [address] [place], [place] [email or web address] [facility]. [id number]. [place] [address] CLIA#45D [id number] 07/07 CMP Bilir ubin, total mg/dL 0.2 1.0 0.5 FINAL Mary Palanisa my Plasma [facility] . [address] [place], [place] [email or web address] [facility]. [id number]. [place] [address] CLIA#45D [id number] 07/07 CMP Alkal ine phosp hatas e U/L 46.0 116.0 83 FINAL Mary Palanisa my Plasma [facility] . [address] [place], [place] [email or web address] [facility]. [id number]. [place] [address] CLIA#45D [id number] 07/07 CMP AST/S GOT U/L 15.0 37.0 22 FINAL Mary Palanisa my Plasma [facility] . [address] [place], [place] [email or web address] [facility]. [id number]. [place] [address] CLIA#45D [id number] 07/07 CMP ALT/S GPT U/L 14.0 59.0 24 FINAL Mary Palanisa my Plasma [facility] . [address] [place] [address] [employer] [facility]. [id number]. [place] [id number] CLIA#45D [id number] 10/27 CMP Sodiu m mmol/L 136.0 145.0 140 FINAL Mary Palanisa my Plasma [facility] . [address] [place] [address] [employer] [facility]. [id number]. [place] [address] CLIA#45D [id number] 10/27 CMP Potas sium mmol/L 3.5 5.1 4.7 FINAL Mary Palanisa my Plasma [facility] . [address] [place] [address] [employer] [facility]. [id number]. [place] [address] CLIA#45D [id number] 10/27 CMP Chlor loly mmol/L 97.0 107.0 103 FINAL Mary Palanisa my Plasma [facility] . [address] [place] [address] [employer] [facility]. [id number]. [place] [address] CLIA#45D [id number] 10/27 CMP CO2 mmol/L 21.0 32.0 25 FINAL Mary Palanisa my Plasma [facility] . [address] [place] [address] [employer] [facility]. [id number]. [place] [address] CLIA#45D [id number] 10/27 CMP Gluco se mg/dL 74.0 106.0 88 FINAL Mary Palanisa my Plasma [facility] . [address] [place] [address] [employer] [facility]. [id number]. [place] [address] CLIA#45D [id number] 10/27 CMP BUN mg/dL 7.0 18.0 26 High FINAL Mary Palanisa my Plasma [facility] . [address] [place] [address] [employer] [facility]. [id number]. [place] [address] CLIA#45D [id number] 10/27 CMP Creat inine , mg/dL mg/dL 0.55 1.3 1.08 FINAL Mary Johnanisa my Plasma [facility] . [address] [place] [address] [facility] [id number]. [place] [id number] CLIA#45D [id number] 10/27 CMP GFR estim ate ml/min /1.73m 2 53 Low Result based on the eGFR 2020 calculati on.60-89 mL/min/1. 73m^2 without kidney damage may be normal.60 -89 mL/min/1. 73m^2 for 3 months or more, along with kidney damage, may indicate early kidney disease.C alculatio n modified to the 2020 formula effective 01/16/23. FINAL Mary Palanisa my Plasma [facility] . [address] [place] [address] [employer] [facility]. [id number]. [place] [address] CLIA#45D [id number] 10/27 CMP BUN/C reati nine ratio Ratio 6.0 25.0 24.1 FINAL Mary Palanisa my Plasma [facility] . [address] [place] [address]. [id number]. [place] [address] CLIA#45D [id number] 10/27 CMP Calci um mg/dL 8.5 10.1 8.8 FINAL Mary Palanisa my Plasma [facility] . [address] [place] [address]. [id number]. [place] [address] CLIA#45D [id number] 10/27 CMP Total prote in g/dL 6.4 8.2 6.8 FINAL Mary Palanisa my Plasma [facility] . [address] [place] [address]. [id number]. [place] [address] CLIA#45D [id number] 10/27 CMP Album in g/dL 3.4 5.0 2.7 Low FINAL Mary Palanisa my Plasma [facility] . [address] [place] [address]. [id number]. [place] [address] CLIA#45D [id number] 10/27 CMP A/G ratio Ratio 0.8 2.0 0.7 Low FINAL Mary Palanisa my Plasma [facility] . [address] [place] [address]. [id number]. [place] [address] CLIA#45D [id number] 10/27 CMP Bilir ubin, total mg/dL 0.2 1.0 0.3 FINAL Mary Palanisa my Plasma [facility] . [address] [place] [address]. [id number]. [place] [address] CLIA#45D [id number] 10/27 CMP Alkal ine phosp hatas e U/L 46.0 116.0 89 FINAL Mary Palanisa my Plasma [facility] . [address] [place] [address]. [id number]. [place] [address] CLIA#[id number] 10/27 CMP AST/S GOT U/L 15.0 37.0 18 FINAL Mary Palanisa my Plasma [facility] . [address] [place] [address]. [id number]. [place] [address] CLIA#45D [id number] 10/27 CMP ALT/S GPT U/L 14.0 59.0 19 FINAL Mary Palanisa my Plasma [facility] . [address] [place] [address]. [id number]. [place] [address] CLIA#45D [id number] 10/27 CBC w/aut o diff with refle x WBC 10^3/u l 4.8 10.8 9.7 FINAL Mary Palanisa my Whole Blood [facility] . [address] [place] [address]. [id number]. [place] [address] CLIA#45D [id number] 10/27 CBC w/aut o diff with refle x RBC 10^6/u l 4.2 5.4 3.48 Low FINAL Mary Palanisa my Whole Blood [facility] . [address] [place] [address]. [id number]. [place] [address] CLIA#45D [id number] 10/27 CBC w/aut o diff with refle x HGB g/dl 12.0 16.0 10.0 Low FINAL Mary Palanisa my Whole Blood [facility] . [address] [place] [address]. [id number]. [place] [address] CLIA#45D [id number] 10/27 CBC w/aut o diff with refle x HCT % 37.0 47.0 32.4 Low FINAL Mary Palanisa my Whole Blood [facility] . [address] [place] [address]. [id number]. [place] [address] CLIA#45D [id number] 10/27 CBC w/aut o diff with refle x MCV fl 81.0 99.0 93.1 FINAL Mary Palanisa my Whole Blood [facility] . [address] [place] [address]. [id number]. [place] [address] CLIA#45D [id number] 10/27 CBC w/aut o diff with refle x MCH pg 27.0 31.0 28.7 FINAL Mary Palanisa my Whole Blood [facility] . [address] [place] [address]. [id number]. [place] [address] CLIA#45D [id number] 10/27 CBC w/aut o diff with refle x MCHC g/dl 33.0 37.0 30.9 Low FINAL Mary Palanisa my Whole Blood [facility] . [address] [place] [address]. [id number]. [place] [address] CLIA#45D [id number] 10/27 CBC w/aut o diff with refle x RDW % 10.5 14.5 15.3 High FINAL Mary Palanisa my Whole Blood [facility] . [address] [place] [address]. [id number]. [place] [address] CLIA#45D [id number] 10/27 CBC w/aut o diff with refle x PLT 10^3/u l 130.0 400.0 446 High FINAL Mary Palanisa my Whole Blood [facility] . [address] [place] [address]. [id number]. [place] [address] CLIA#45D [id number] 10/27 CBC w/aut o diff with refle x MPV fl 9.4 12.3 10.2 FINAL Mary Palanisa my Whole Blood [facility] . [address] [place] [address]. [id number]. [place] [address] CLIA#45D [id number] 10/27 CBC w/aut o diff with refle x Jordy % % 40.0 77.0 64.4 FINAL Mary Palanisa my Whole Blood [facility] . [address] [place] [address]. [id number]. [place] [address] CLIA#45D [id number] 10/27 CBC w/aut o diff with refle x Jordy # (ANC) 10^3/u l 1.5 6.5 6.2 FINAL Mary Palanisa my Whole Blood [facility] . [address] [place] [address]. [id number]. [place] [address] CLIA#45D [id number] 10/27 CBC w/aut o diff with refle x LY % % 15.0 41.0 14.6 Low FINAL Mary Palanisa my Whole Blood [facility] . [address] [place] [address]. [id number]. [place] [address] CLIA#45D [id number] 10/27 CBC w/aut o diff with refle x LY # 10^3/u l 1.2 3.4 1.4 FINAL Mary Palanisa my Whole Blood [facility] . [address] [place] [address]. [id number]. [place] [address] CLIA#45D [id number] 10/27 CBC w/aut o diff with refle x MO % % 3.0 11.0 10.7 FINAL Mary Palanisa my Whole Blood [facility] . [address] [place] [address]. [id number]. [place] [address] CLIA#45D [id number] 10/27 CBC w/aut o diff with refle x MO # 10^3/u l 0.0 1.0 1.0 FINAL Mary Palanisa my Whole Blood [facility] . [address] [place] [address]. [id number]. [place] [address] CLIA#45D [id number] 10/27 CBC w/aut o diff with refle x EO % % 0.0 3.0 7.1 High FINAL Mary Palanisa my Whole Blood [facility] . [address] [place] [address]. [id number]. [place] [address] CLIA#45D [id number] 10/27 CBC w/aut o diff with refle x EO # 10^3/u L 0.0 0.3 0.7 High FINAL Mary Palanisa my Whole Blood [facility] . [address] [place] [address]. [id number]. [place] [address] CLIA#45D [id number] 10/27 CBC w/aut o diff with refle x BA % % 0.0 1.0 1.1 High FINAL Mary Palanisa my Whole Blood [facility] . [address] [place] [address]. [id number]. [place] [address] CLIA#45D [id number] 10/27 CBC w/aut o diff with refle x BA # 10^3/u L 0.0 0.2 0.1 FINAL Mary Palanisa my Whole Blood [facility] . [address] [place] [address]. [id number]. [place] [address] CLIA#45D [id number] 10/27 CBC w/aut o diff with refle x IG % % 0.0 0.5 2.10 High FINAL Mary Palanisa my Whole Blood [facility] . [address] [place] [address]. [id number]. [place] [address] CLIA#45D [id number] 10/27 CBC w/aut o diff with refle x IG # 10^3/u L 0.0 0.03 0.20 High FINAL Mary Palanisa my Whole Blood [facility] . [address] [place] [address]. [id number]. [place] [address] CLIA#45D [id number] 10/27 CBC w/aut o diff with refle x NRBC, % % 0.0 0.2 0.0 FINAL Mary Palanisa my Whole Blood [facility] . [address] [place] [address]. [id number]. [place] [address] CLIA#45D [id number] 10/27 CBC w/aut o diff with refle x NRBC, absol [place], x 10^3/ uL 10^3/u L 0.0 0.012 0.000 FINAL Mary Palanisa my Whole Blood [facility] . [address] [place] [address]. [id number]. [place] [address] CLIA#45D [id number] 10/27 Juliet tin panel Juliet tin ng/mL 8.0 252.0 953 High FINAL Mary Palanisa my Serum [facility] . [address] [place] [address]. [id number]. [place] [address] CLIA#45D [id number] 10/27 TIBC and perce nt sat w/ iron panel Iron ug/dL 50.0 170.0 24.00 Low FINAL Mary Palanisa my Serum [facility] . [address] [place] [address]. [id number]. [place] [address] CLIA#45D [id number] 10/27 TIBC and perce nt sat w/ iron panel TIBC ug/dL 250.0 450.0 202.00 Low FINAL Mary Palanisa my Serum [facility] . [address] [facility]. [id number]. [place] [address] CLIA#45D [id number] 10/27 TIBC and perce nt sat w/ iron panel Iron, % satur ation % 20.0 55.0 11.9 Low FINAL Mary Palanisa my Serum [facility] . [address] [facility]. [id number]. [place] [address] CLIA#45D [id number] 04/26 CMP Sodiu m mmol/L 136.0 145.0 140 FINAL Mary Palanisa my Plasma [facility].[address] [facility] [place] [address] [place] [address] CLIA#45D [id number] 04/26 CMP Potas sium mmol/L 3.5 5.1 4.9 FINAL Mary Palanisa my Plasma [facility].[address] [facility] [place] [address] [place] [address] CLIA#45D [id number] 04/26 CMP Chlor loly mmol/L 97.0 107.0 104 FINAL Mary Palanisa my Plasma [facility].[address] [facility] [place] [place] [address] [place] [address] [address] CLIA#45D [id number] 04/26 CMP CO2 mmol/L 21.0 32.0 26.0 FINAL Mary Palanisa my Plasma [facility].[address] [facility] [place] [place] [address] [place] [address] CLIA#45D [id number] 04/26 CMP Gluco se mg/dL 74.0 106.0 120 High FINAL Mary Palanisa my Plasma [facility].[address] [facility] [place] [place] [address] [place] [address] CLIA#45D [id number] 04/26 CMP BUN mg/dL 7.0 18.0 37 High FINAL Mary Palanisa my Plasma [facility].[address] [facility] [place] [place] [address] [place] [address] CLIA#45D [id number] 04/26 CMP Creat inine , mg/dL mg/dL 0.55 1.3 1.42 High FINAL Mary Palanisa my Plasma [facility].[address] [facility] [address] [place] [address] CLIA#45D [id number] 04/26 CMP GFR estim ate mil/mi n/1.73 m2 38 Low Result based on the eGFR 2020 calculati on.60-89 mL/min/1. 73m^2 without kidney damage may be normal.60 -89 mL/min/1. 73m^2 for 3 months or more, along with kidney damage, may indicate early kidney disease.C alculatio n modified to the 2020 formula effective 01/16/23. FINAL Mary Palanisa my Plasma [facility].[address] [facility] [address] [place] [address] CLIA#45D [id number] 04/26 CMP BUN/C reati nine ratio 6.0 25.0 26.1 High FINAL Mary Palanisa my Plasma [facility].[address] [facility] [address] [place] [address] CLIA#45D [id number] 04/26 CMP Album in g/dL 3.4 5.0 3.2 Low FINAL Mary Palanisa my Plasma [facility].[address] [facility] [place] [address] [place] [address] CLIA#45D [id number] 04/26 CMP Calci um mg/dL 8.5 10.1 9.1 FINAL Mary Palanisa my Plasma [facility].[address] [facility] [address] [place] [address] CLIA#45D [id number] 04/26 CMP Total prote in g/dL 6.4 8.2 7.8 FINAL Mary Palanisa my Plasma [facility].[address] [facility] [place] [place] [address] [place] [address] CLIA#45D [id number] 04/26 CMP Globu ashley g/dL 2.2 4.2 4.6 High FINAL Mary Palanisa my Plasma [facility].[address] [facility] [place] [place] [address] [place] [address] CLIA#45D [id number] 04/26 CMP A/G ratio 0.8 2.0 0.7 Low FINAL Mary Palanisa my Plasma [facility].[address] [facility] [place] [place] [address] [place] [address] CLIA#45D [id number] 04/26 CMP Bilir ubin, total mg/dL 0.2 1.0 0.5 FINAL Mary Palanisa my Plasma [facility].[address] [facility] [place] [address] [place] [address] CLIA#45D [id number] 04/26 CMP Alkal ine phosp hatas e U/L 46.0 116.0 93 FINAL Mary Palanisa my Plasma [facility].[address] [facility] [place] [address] [place] [address] CLIA#45D [id number] 04/26 CMP AST/S GOT U/L 15.0 37.0 17 FINAL Mary Palanisa my Plasma [facility].[address] [facility] [place] [address] [place] [address] CLIA#45D [id number] 04/26 CMP ALT/S GPT U/L 14.0 59.0 26 FINAL Mary Palanisa my Plasma [facility].[address] [facility] [place] [address] [place] [address] CLIA#45D [id number] 04/26 SPEP with immun ofixa tion Total prote in g/dL 6.1 8.1 7.1 FINAL Mary Palanisa my Serum [facility] [place] [address] [address] [address] 04/26 SPEP with immun ofixa tion NOHEMI inter preta tion Results Below Normal pattern. No monoclona l proteins detected. FINAL Mary Palanisa my Serum [facility] [place] [address] 12.[place] [address] 04/26 SPEP with immun ofixa tion Album in, SPE g/dL 3.8 4.8 3.6 Low FINAL Mary Palanisa my Serum [facility] [place] [address] 12.[place] [address] 04/26 SPEP with immun ofixa tion Alpha -1 globu ashley g/dL 0.2 0.3 0.3 FINAL Mayr Palanisa my Serum [facility] [place] [address] 12.[place] [id number] 04/26 SPEP with immun ofixa tion Alpha -2 globu ashley g/dL 0.5 0.9 0.8 FINAL Mary Palanisa my Serum [facility] [place] [address] 12.[place] [address] 04/26 SPEP with immun ofixa tion Beta- 1 g/dL 0.4 0.6 0.5 FINAL Mary Palanisa my Serum [facility] [place] [address] 12.[place] [address] 04/26 SPEP with immun ofixa tion Beta- 2 g/dL 0.2 0.5 0.4 FINAL Mary Palanisa my Serum [facility] [place] [address] 12.[place] [address] 04/26 SPEP with immun ofixa tion Gamma globu ashley g/dL 0.8 1.7 1.5 FINAL Mary Palanisa my Serum [facility] [place] [address] 12.[place] [address] 04/26 SPEP with immun ofixa tion SPE inter preta tion Results Below Abnormal appearing globulin peak, possibly monoclona l. If indicated , recommend immunotyp ing (Test Code: [id number]) for further evaluatio n. If the SPEP wasordere d with reflex, immunotyp ing will be resulted upon completio n. FINAL Mary Palanisa my Serum [facility] [address] [place] [address] [address] [address] 04/26 [place] /robbins da with K/L ratio , free, serum (mg/d L) [place] [employer] , free mg/L 3.3 19.4 86.9 High FINAL Mary Palanisa my Serum [facility] [address] [place] [address] [address] [address] 04/26 [place] /robbins da with K/L ratio , free, serum (mg/d L) [place] [employer] , free mg/L 5.7 26.3 37.3 High FINAL Mary Palanisa lilia Serum [facility] [address] [place] [address] [address] [address] 04/26 [place] /[place]bb[place] da with K/L ratio , free, [...] Mary Palanisa lilia Serum [facility] [address] [place] [address] [address] [address] 04/26 CBC w/aut o diff with refle x WBC 10^3/u L 4.8 10.8 6.4 FINAL Mary Palanisa my Whole Blood [facility].[address] [facility] ty .[place] [address] [place] [address] CLIA#45D [id number] 04/26 CBC w/aut o diff with refle x RBC 10^6/u L 4.2 5.4 4.06 Low FINAL Mary Palanisa my Whole Blood [facility].[address] [facility] [place] [address] [place] [address] CLIA#45D [id number] 04/26 CBC w/aut o diff with refle x HGB g/dL 12.0 16.0 11.1 Low FINAL Mary Palanisa my Whole Blood [facility].[address] [facility] [place] [address] [place] [address] CLIA#45D [id number] 04/26 CBC w/aut o diff with refle x HCT % 37.0 47.0 37.0 FINAL Mary Palanisa my Whole Blood [facility].[address] [facility] [place] [address] [place] [address] CLIA#45D [id number] 04/26 CBC w/aut o diff with refle x MCV fL 81.0 99.0 91.1 FINAL Mary Palanisa my Whole Blood [facility].[address] [facility] [place] [address] [place] [address] CLIA#45D [id number] 04/26 CBC w/aut o diff with refle x MCH pg 27.0 31.0 27.3 FINAL Mary Palanisa my Whole Blood [facility].[address] [facility] [place] [address] [place] [address] CLIA#45D [id number] 04/26 CBC w/aut o diff with refle x MCHC g/dL 33.0 37.0 30.0 Low FINAL Mary Palanisa my Whole Blood [facility].[address] [facility] [place] [address] [place] [address] CLIA#45D [id number] 04/26 CBC w/aut o diff with refle x PLT 10^3/u L 130.0 400.0 256 FINAL Mary Palanisa my Whole Blood [facility].[address] [facility] ty [address] [place] [address] CLIA#45D [id number] 04/26 CBC w/aut o diff with refle x MPV fL 9.4 12.3 10.7 FINAL Mary Palanisa my Whole Blood [facility].[address] [facility] [place] [address] [place] [address] CLIA#45D [id number] 04/26 CBC w/aut o diff with refle x RDW % 10.5 14.5 15.9 High FINAL Mary Palanisa my Whole Blood [facility].[address] [facility] [place] [address] [place] [address] CLIA#45D [id number] 04/26 CBC w/aut o diff with refle x Jordy % % 40.0 77.0 56.0 FINAL Mary Palanisa my Whole Blood [facility].[address] [facility] [place] [address] [place] [address] CLIA#45D [id number] 04/26 CBC w/aut o diff with refle x Jordy # (ANC) 10^3/u L 1.5 6.5 3.57 FINAL Mary Palanisa my Whole Blood [facility].[address] [facility] [place] [address] [place] [address] [address] CLIA#45D [id number] 04/26 CBC w/aut o diff with refle x IG % % 0.0 0.5 0.3 FINAL Mary Palanisa my Whole Blood [facility].[address] [facility] [place] [address] [place] [address] CLIA#45D [id number] 04/26 CBC w/aut o diff with refle x IG # 10^3/u L 0.0 0.03 0.02 FINAL Mary Palanisa my Whole Blood [facility].[address] [facility] ty [address] [place] [address] CLIA#45D [id number] 04/26 CBC w/aut o diff with refle x LY % % 15.0 41.0 19.6 FINAL Mary Palanisa my Whole Blood [facility].[address] [facility] [place] [address] [place] [address] CLIA#45D [id number] 04/26 CBC w/aut o diff with refle x LY # 10^3/u L 1.2 3.4 1.25 FINAL Mary Palanisa my Whole Blood [facility].[address] [facility] ty [address] [place] [address] CLIA#45D [id number] 04/26 CBC w/aut o diff with refle x MO % % 3.0 11.0 9.7 FINAL Mary Palanisa my Whole Blood [facility].[address] [facility] ty [address] [place] [address] CLIA#45D [id number] 04/26 CBC w/aut o diff with refle x MO # 10^3/u L 0.0 1.0 0.62 FINAL Mary Palanisa my Whole Blood [facility].[address] [facility] ty [address] [place] [address] CLIA#45D [id number] 04/26 CBC w/aut o diff with refle x EO % % 0.0 3.0 13.0 High FINAL Mary Palanisa my Whole Blood [facility].[address] [facility] [place] [address] [place] [address] CLIA#45D [id number] 04/26 CBC w/aut o diff with refle x EO # 10^3/u L 0.0 0.3 0.83 High FINAL Mary Palanisa my Whole Blood [facility].[address] [facility] ty [address] [place] [address] CLIA#45D [id number] 04/26 CBC w/aut o diff with refle x BA % % 0.0 1.0 1.4 High FINAL Mary Palanisa my Whole Blood [facility].[address] [facility] ty [address] [place] [address] CLIA#45D [id number] 04/26 CBC w/aut o diff with refle x BA # 10^3/u L 0.0 0.2 0.09 FINAL Mary Palanisa my Whole Blood [facility].[address] [facility] [address] [place] [address] CLIA#45D [id number] 04/26 CBC w/aut o diff with refle x NRBC, % % 0.0 0.2 0.0 FINAL Mary Palanisa my Whole Blood [facility].[address] [facility] [address] [place] [address] CLIA#45D [id number] 04/26 CBC w/aut o diff with refle x NRBC, absol [place], x 10^3/ uL 10^3/u L 0.0 0.01 0.00 FINAL Mary Palanisa my Whole Blood [facility].[address] [facility] [address] [place] [address] CLIA#45D [id number] 04/26 TIBC and perce nt sat w/ iron panel Iron ug/dL 65.0 175.0 30.0 Low FINAL Mary Palanisa my Serum [facility].[address] [facility] [address] [place] [address] CLIA#45D [id number] 04/26 TIBC and perce nt sat w/ iron panel TIBC ug/dL 250.0 450.0 283.0 FINAL Mary Palanisa my Serum [facility].[address] [facility] [address] [place] [address] CLIA#45D [id number] 04/26 TIBC and perce nt sat w/ iron panel Iron, % satur ation % 15.0 50.0 11 Low FINAL Mary Palanisa my Serum [facility].[address] [facility] [address] [place] [address] CLIA#45D [id number] 04/26 Juliet tin panel Juliet tin ng/mL 8.0 252.0 266 High FINAL Mary Palanisa my Serum [facility].[address] [facility] [address] [place] [address] CLIA#45D [id number] 11/07 TIBC and perce nt sat w/ iron panel Iron ug/dL 50.0 170.0 60.0 FINAL [facility].[address] [facility] [address] [place] [address] CLIA#45D [id number] 11/07 TIBC and perce nt sat w/ iron panel TIBC ug/dL 250.0 450.0 311.0 FINAL [facility].[address] [facility] [address] [place] [address] CLIA#45D [id number] 11/07 TIBC and perce nt sat w/ iron panel Iron, % satur ation % 15.0 50.0 19 FINAL [facility].52 [address] [facility] [address] [place] [address] CLIA#45D [id number] 11/07 Juliet tin panel Juliet tin ng/mL 8.0 252.0 228 FINAL [facility].[address] [facility] [address] [place] [address] CLIA#45D [id number] 11/07 CBC w/aut o diff with refle x WBC 10^3/u L 4.8 10.8 4.6 Low FINAL Luis Tucker Whole Blood [facility].[address] [facility] [place] [address] [place] [address] CLIA#45D [id number] 11/07 CBC w/aut o diff with refle x RBC 10^6/u L 4.2 5.4 4.23 FINAL Luis Tucker Whole Blood [facility].[address] [facility] [address] [place] [address] CLIA#45D [id number] 11/07 CBC w/aut o diff with refle x HGB g/dL 12.0 16.0 12.4 FINAL Luis Tucker Whole Blood [facility].[address] [facility] [address] [place] [address] CLIA#45D [id number] 11/07 CBC w/aut o diff with refle x HCT % 37.0 47.0 40.8 FINAL Luis Tucker Whole Blood [facility].[address] [facility] ty [address] [place] [address] CLIA#45D [id number] 11/07 CBC w/aut o diff with refle x MCV fL 81.0 99.0 96.5 FINAL Luis Tucker Whole Blood [facility].[address] [facility] ty [address] [place] [address] [address] CLIA#45D [id number] 11/07 CBC w/aut o diff with refle x MCH pg 27.0 31.0 29.3 FINAL Luis Tucker Whole Blood [facility].[address] [facility] [place] it [address] [place] [address] CLIA#45D [id number] 11/07 CBC w/aut o diff with refle x MCHC g/dL 33.0 37.0 30.4 Low FINAL Lusi Tucker Whole Blood [facility].[address] [facility] [place] it [address] [place] [address] CLIA#45D [id number] 11/07 CBC w/aut o diff with refle x PLT 10^3/u L 130.0 400.0 216 FINAL Luis Tucker Whole Blood [facility].[address] [facility] [address] [place] [address] CLIA#45D [id number] 11/07 CBC w/aut o diff with refle x MPV fL 9.4 12.3 10.3 FINAL Luis Tucker Whole Blood [facility].[address] [facility] [address] [place] [address] [address] CLIA#45D [id number] 11/07 CBC w/aut o diff with refle x RDW % 10.5 14.5 14.0 FINAL Luis Tucker Whole Blood [facility].[address] [facility] [address] [place] [address] CLIA#45D [id number] 11/07 CBC w/aut o diff with refle x Jordy % % 40.0 77.0 59.7 FINAL Luis Tucker Whole Blood [facility].[address] [facility] [address] [place] [address] CLIA#45D [id number] 11/07 CBC w/aut o diff with refle x Jordy # (ANC) 10^3/u L 1.5 6.5 2.73 FINAL Lius Tucker Whole Blood [facility].[address] [facility] [address] [place] [address] CLIA#45D [id number] 11/07 CBC w/aut o diff with refle x IG % % 0.0 0.5 0.4 FINAL Luis Tucker Whole Blood [facility].[address] [facility] [address] [place] [address] CLIA#45D [id number] 11/07 CBC w/aut o diff with refle x IG # 10^3/u L 0.0 0.03 0.02 FINAL Luis Tucker Whole Blood [facility].[address] [facility] [address] [place] [address] CLIA#45D [id number] 11/07 CBC w/aut o diff with refle x LY % % 15.0 41.0 19.0 FINAL Luis Tucker Whole Blood [facility].[address] [facility] [address] [place] [address] CLIA#45D [id number] 11/07 CBC w/aut o diff with refle x LY # 10^3/u L 1.2 3.4 0.87 Low FINAL Luis Tucker Whole Blood [facility].[address] [facility] [address] [place] [address] CLIA#45D [id number] 11/07 CBC w/aut o diff with refle x MO % % 3.0 11.0 9.8 FINAL Luis Tucker Whole Blood [facility].[address] [facility] [address] [place] [address] CLIA#45D [id number] 11/07 CBC w/aut o diff with refle x MO # 10^3/u L 0.0 1.0 0.45 FINAL Luis Tucker Whole Blood [facility].[address] [facility] [address] [place] [address] CLIA#45D [id number] 11/07 CBC w/aut o diff with refle x EO % % 0.0 3.0 9.6 High FINAL Luisbulmaro Tucker Whole Blood [facility].[address] [facility] [address] [place] [address] CLIA#45D [id number] 11/07 CBC w/aut o diff with refle x EO # 10^3/u L 0.0 0.3 0.44 High FINAL Luis Tucker Whole Blood [facility] [place] [address] CLIA#[id number] 11/07 CBC w/aut o diff with refle x BA % % 0.0 1.0 1.5 High FINAL Luis Tucker Whole Blood [facility].[address] [place] [address] CLIA#45D [id number] 11/07 CBC w/aut o diff with refle x BA # 10^3/u L 0.0 0.2 0.07 FINAL Luisbulmaro Tucker Whole Blood [facility].[address] [place] [address] CLIA#45D [id number] 11/07 CBC w/aut o diff with refle x NRBC, % % 0.0 0.2 0.0 FINAL Luis Brown Whole Blood [facility].[address] [place] [address] CLIA#45D [id number] 11/07 CBC w/aut o diff with refle x NRBC, absol [place], x 10^3/ uL 10^3/u L 0.0 0.01 0.00 FINAL [facility] Whole Blood [facility].[address] [facility] [place] [place] e [address] [place] [address] .[place] [address] CLIA#45D [id number] 11/07 SPEP with immun ofixa tion Total prote in g/dL 6.1 8.1 6.4 FINAL [facility] [place] [address] [address] [address] 11/07 SPEP with immun ofixa tion NOHEMI inter preta tion Results Below Normal pattern. No monoclona l proteins detected. FINAL [facility] [place] [address] [address] [address] 11/07 SPEP with immun ofixa tion Album in, SPE g/dL 3.8 4.8 3.4 Low FINAL [facility] [place] [address] [address] [address] 11/07 SPEP with immun ofixa tion Alpha -1 globu ashley g/dL 0.2 0.3 0.3 FINAL [facility] [place] [address] [address] [address] 11/07 SPEP with immun ofixa tion Alpha -2 globu ashley g/dL 0.5 0.9 0.7 FINAL [facility] [place] [address] [address] [address] 11/07 SPEP with immun ofixa tion Beta- 1 g/dL 0.4 0.6 0.4 FINAL [facility] [place] [address] [address] [address] 11/07 SPEP with immun ofixa tion Beta- 2 g/dL 0.2 0.5 0.4 FINAL [facility] [place] [address] [address] [address] 11/07 SPEP with immun ofixa tion Gamma globu ashley g/dL 0.8 1.7 1.1 FINAL [facility] [place] [address] [address] [address] 11/07 SPEP with immun ofixa tion SPE inter preta tion Results Below Abnormal appearing gamma globulin peak, possibly monoclona l. If indicated ,recommen d immunotyp ing (Test Code: [id number]) for further evaluatio n. If the SPEPwas ordered with reflex, immunotyp ing will be resulted upon completio n. FINAL [facility] [address] [address] [address] 11/07 CMP Chlor loly mmol/L 97.0 107.0 106 FINAL [facility].52 36 [facility] [address] [place] [address] CLIA#45D [id number] 11/07 CMP CO2 mmol/L 21.0 32.0 28.0 FINAL [facility].52 [address] [facility] [address] [place] [address] CLIA#45D [id number] 11/07 CMP Gluco se mg/dL 74.0 106.0 74 FINAL [facility].[address] [facility] [place] [place] e [address] [place] [address] CLIA#45D [id number] 11/07 CMP BUN mg/dL 7.0 18.0 35 High FINAL [facility].[address] [facility] [place] [place] [address] [place] [address] CLIA#45D [id number] 11/07 CMP Creat inine , mg/dL mg/dL 0.55 1.3 1.41 High FINAL [facility].[address] [facility] [place] [place] [address] [place] [address] CLIA#45D [id number] 11/07 CMP GFR estim ate mil/mi n/1.73 m2 38 Low Result based on the eGFR 2020 calculati on.60-89 mL/min/1. 73m^2 without kidney damage may be normal.60 -89 mL/min/1. 73m^2 for 3 months or more, along with kidney damage, may indicate early kidney disease.C alculatio n modified to the 2020 formula effective 01/16/23. FINAL [facility].[address] [facility] [address] [place] [address] CLIA#45D [id number] 11/07 CMP BUN/C reati nine ratio 6.0 25.0 24.8 FINAL [facility].52 [address] [facility] [address] [place] [address] CLIA#45D [id number] 11/07 CMP Calci um mg/dL 8.5 10.1 9.7 FINAL [facility].52 [address] [facility] [address] [place] [address] CLIA#45D [id number] 11/07 CMP Album in g/dL 3.4 5.0 3.1 Low FINAL [facility].52 [address] [facility] [address] [place] [address] CLIA#45D [id number] 11/07 CMP Total prote in g/dL 6.4 8.2 7.3 FINAL [facility].[address] [facility] [address] [place] [address] CLIA#45D [id number] 11/07 CMP Globu ashley g/dL 2.2 4.2 4.2 FINAL [facility].[address] [facility] [address] [place] [address] CLIA#45D [id number] 11/07 CMP A/G ratio 0.8 2.0 0.7 Low FINAL [facility].52 [address] [facility] [address] [place] [address] CLIA#45D [id number] 11/07 CMP Bilir ubin, total mg/dL 0.2 1.0 0.6 FINAL [facility].52 [address] [facility] [address] [place] [address] CLIA#45D [id number] 11/07 CMP Alkal ine phosp hatas e U/L 46.0 116.0 100 FINAL [facility].[address] [facility] [place] [address] [place] [address] CLIA#45D [id number] 11/07 CMP AST/S GOT U/L 15.0 37.0 26 FINAL [facility].[address] [facility] [place] [place] [address] [place] [address] CLIA#45D [id number] 11/07 CMP ALT/S GPT U/L 14.0 59.0 27 FINAL [facility].[address] [facility] [place] [place] [address] [place] [address] CLIA#45D [id number] 11/07 CMP Sodiu m mmol/L 136.0 145.0 143 FINAL [facility].[address] [facility] [place] [place] [address] [place] [address] CLIA#45D [id number] 11/07 CMP Potas sium mmol/L 3.5 5.1 4.3 FINAL [facility].[address] [facility] [place] [place] [address] [place] [address] CLIA#45D [id number] 11/07 [place] /[place] da with K/L ratio , free, serum (mg/d L) [place] [employer] [place] , free mg/L 3.3 19.4 73.5 High FINAL [facility]2 [address] [facility] [address] [address] 11/07 [place] /[place] with K/L ratio , free, serum (mg/d L) [place] [employer] light chain , free mg/L 5.7 26.3 35.8 High FINAL [facility]2 [address] [facility] [address] [address] 11/07 [place] /[place] with K/L ratio , free, [...] [facility] [address] [address] [address] [address] Medications Date Name Route Dose Frequency Instructions [...] Notes Section * Nurse Note for: 22-FEB-23 [facility] Nurse Note Print Location: Unknown Date/Time Printed: 01/28/2025 19:46 ([facility]) Patient: JAMESON DOTSON Sex: Female : 1945 [...] mg Amount in mL: 15 Pharmacy dispense: [facility]: [id number] Dispense/Waste: 300/0 mg Given Dose/Discard: 300/0 mg Start Time: 13:09, Entered By: Ceci Torres RN, Sr-KELY, Stop Time: 14:39, Entered By: Ceci Torres RN, Sr-KELY Admix Fluid: 0.9 % sodium chloride, Admix Fluid Volume: 250mL, Total Volume: 265mL * Nurse Note for: 16-FEB-23 [facility] Nurse Note Print Location: Unknown Date/Time Printed: 01/28/2025 19:46 ([facility]) Patient: JAMESON DOTSON Sex: Female : 1945 [...] mg Amount in mL: 15 Pharmacy dispense: [facility]: [id number] Dispense/Waste: 300/0 mg Given Dose/Discard: 300/0 mg Start Time: 08:35, Entered By: Ceci Ohara, Stop Time: 10:05, Entered By: Ceci Ohara Admix Fluid: 0.9 % sodium chloride, Admix Fluid Volume: 250mL, Total Volume: 265mL * Nurse Note for: 04-FEB-23 [facility] Nurse Note Print Location: Unknown Date/Time Printed: 01/28/2025 19:46 ([facility]) Patient: JAMESON DOTSON Sex: Female : 1945 [...] mg Amount in mL: 15 Pharmacy dispense: [facility]: [id number] Dispense/Waste: 300/0 mg Given Dose/Discard: 300/0 mg Start Time: 14:00, Entered By: Norah Singer LPN, Stop Time: 15:30, Entered By: Norah Singer LPN Admix Fluid: 0.9 % sodium chloride, Admix Fluid Volume: 250mL, Total Volume: 265mL * Nurse Note for: 28-JAN-23 [facility] Nurse Note Print Location: Unknown Date/Time Printed: 01/28/2025 19:46 ([facility]) Patient: JAMESON DOTSON Sex: Female : 1945 Date of Service: 01/28/2023 Allergies : Sulfa (Sulfonamide Antibiotics) Vital Signs : Time: 16:42. Height: 62 in (157.48 cm). Temperature: 97.2 F (36.22 C). Pulse: 92 (/min) . Respirations: 18 (/min) . Blood pressure: 119/63 (mm Hg). O2 Saturation: 99 (%) . Entered by Norha Singer LPN 01/28/2023 16:42 Incident To Details [...] mg Amount in mL: 15 Pharmacy dispense: [facility]: [id number] Dispense/Waste: 300/0 mg Given Dose/Discard: 300/0 mg Start Time: 13:39, Entered By: Norah Singer LPN, Stop Time: 15:09, Entered By: Norah Singer LPN Admix Fluid: 0.9 % sodium chloride, Admix Fluid Volume: 250mL, Total Volume: 265mL * Nurse Note for: 21-JAN-23 [facility] Nurse Note Print Location: Unknown Date/Time Printed: 01/28/2025 19:46 ([facility]) Patient: JAMESON DOTSON Sex: Female : 1945 [...] mg Amount in mL: 15 Pharmacy dispense: [facility]: [phone] Dispense/Waste: 300/0 mg Given Dose/Discard: 300/0 mg Start Time: 12:50, Entered By: Norah Singer LPN, Stop Time: 14:20, Entered By: Norah Singer LPN Admix Fluid: 0.9 % sodium chloride, Admix Fluid Volume: 250mL, Total Volume: 265mL * Nurse Note for: 30-DEC-22 [facility] Nurse Note Print Location: Unknown Date/Time Printed: 01/28/2025 19:46 ([facility]) Patient: JAMESON DOTSON Sex: Female : 1945 [...] on 09:30 * Nurse Note for: 24-DEC-21 [facility] Nurse Note Print Location: Unknown Date/Time Printed: 01/28/2025 19:46 ([facility]) Patient: JAMESON DOTSON Sex: Female : 1945 [...] Changes , Bleeding . Entered By Tyrone Smieon CMA on 10:51 * Nurse Note for: 24-JUN-21 [facility] Nurse Note Print Location: Unknown Date/Time Printed: 01/28/2025 19:46 ([facility]) Patient: JAMESON DOTSON Sex: Female : 1945 [...]
--- OUTSIDE RECORDS SUMMARY | 2025-01-28 19:47 | XMS_ITS ---
Author Name Interface, [id number] lity Address [place] [address] Organization [facility] Address 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 Role Phone Matt José Unavailable Unavailable [...] LABORDER CBC w/ auto diff 07/07/2023 LABORDER [place]/lambda wit h K/L ratio, free, serum (mg/dL) [...] LABORDER SPEP with immuno fixation 04/26/2024 LABORDER [place]/lambda wit h K/L ratio, free, serum (mg/dL) 04/26/2024 LABORDER CBC w/auto diff with reflex 11/07/2024 LABORDER SPEP with immuno fixation 11/07/2024 LABORDER CBC w/auto diff with reflex 11/07/2024 LABORDER [place]/lambda wit h K/L ratio, free, serum (mg/dL) 11/07/2024 LABORDER CMP 11/07/2024 LABORDER Iron, TIBC, Ferr itin panel 05/16/2025 LABORDER CBC w/auto diff with reflex 05/16/2025 LABORDER SPEP with immuno fixation 05/16/2025 LABORDER CMP 05/16/2025 LABORDER [place]/lambda wit h K/L ratio, free, serum (mg/dL) [...] FINAL Mary Palanisa my Serum [facility] [place] [address] 12.[place] [address] 07/07 SPEP with immun ofixa tion Alpha -1 globu ashley g/dL 0.2 0.5 0.5 FINAL Mary Palanisa my [facility] [place] [address] 12.[place] [address] 07/07 SPEP with immun ofixa tion Alpha -2 globu ashley g/dL 0.4 1.0 0.8 FINAL Mary Palanisa my [facility] [place] [address] 121 [place] 12[place] [address] 07/07 SPEP with immun ofixa tion Beta globu ashley g/dL 0.5 1.1 0.7 FINAL Mary Palanisa my [facility]2 [address] [address] [address] 12[place] [address] 07/07 SPEP with immun ofixa tion Gamma globu ashley g/dL 0.7 1.5 0.9 FINAL Amry Johnanisa my [facility].2 [address] [address] [address] 12[place] [address] 07/07 SPEP with immun ofixa tion Parap rotei n band, g/dL g/dL None FINAL Mary Palanisa [facility]2 [address] [address] [address] 12[place] [address] 07/07 SPEP with immun ofixa tion Total prote in elect ropho resis g/dL 5.7 8.2 6.1 FINAL Mary Palanisa my [facility]2 [address] [address] [address] 12[place] [address] 07/07 SPEP with immun ofixa tion SPE inter preta tion Results Below Normal serum total protein with normal electroph oretic pattern. FINAL Mary Palanisa my [facility]2 [address] [address] [address] 12[place] [address] 07/07 SPEP with immun ofixa tion Immun ofixa tion, serum , inter preta tion Results Below No monoclona l peaks detected. FINAL Mary Palanisa my [facility]2 [address] [address] [address] 12[place] [address] 07/07 CMP Sodiu m mmol/L 136.0 145.0 137 FINAL Mary Palanisa my Plasma [facility] . [address] [place] [address] [employer]. [id number]. [place] [address] CLIA#45D [id number] 07/07 CMP Potas sium mmol/L 3.5 5.1 4.1 FINAL Mary Palanisa my Plasma [facility] . [address] [place] [address] [employer]. [id number]. [place] [address] CLIA#45D [id number] 07/07 CMP Chlor loly mmol/L 97.0 107.0 101 FINAL Mary Palanisa my Plasma [facility] . [address] [place] [address]. [id number]. [place] [address] CLIA#45D [id number] 07/07 CMP CO2 mmol/L 21.0 32.0 32 FINAL Mary Palanisa my Plasma [facility] . [address] [place] [address]. [id number]. [place] [address] CLIA#45D [id number] 07/07 CMP Gluco se mg/dL 74.0 106.0 115 High FINAL Mary Palanisa my Plasma [facility] . [address] [place] [address]. [id number]. [place] [address] CLIA#45D [id number] 07/07 CMP BUN mg/dL 7.0 18.0 21 High FINAL Mary Palanisa my Plasma [facility] . [address] [place] [address]. [id number]. [place] [address] CLIA#45D [id number] 07/07 CMP Creat inine , mg/dL mg/dL 0.55 1.3 1.50 High FINAL Mary Palanisa my Plasma [facility] . [address] [place] [address]. [id number]. [place] [address] CLIA#45D [id number] 07/07 CMP GFR estim ate ml/min /1.73m 2 36 Low Result based on the eGFR 2020 calculati on.60-89 mL/min/1. 73m^2 without kidney damage may be normal.60 -89 mL/min/1. 73m^2 for 3 months or more, along with kidney damage, may indicate early kidney disease.C alculatio n modified to the 2020 formula effective 01/16/23. FINAL Mary Palanisa my Plasma [facility] . [address] [place] [address]. [id number]. [place] [address] CLIA#45D [id number] 07/07 CMP BUN/C reati nine ratio Ratio 6.0 25.0 14.0 FINAL Mary Palanisa my Plasma [facility] . [address] [place], [place] [address] [facility]. [id number]. [place] [address] CLIA#45D [id number] 07/07 CMP Calci um mg/dL 8.5 10.1 9.6 FINAL Mary Palanisa my Plasma [facility] . [address] [place] [address]. [id number]. [place] [address] CLIA#45D [id number] 07/07 CMP Total prote in g/dL 6.4 8.2 6.5 FINAL Mary Palanisa my Plasma [facility] . [address] [place] [address]. [id number]. [place] [address] CLIA#45D [id number] 07/07 CMP Album in g/dL 3.4 5.0 2.9 Low FINAL Mary Palanisa my Plasma [facility] . [address] [place] [address]. [id number]. [place] [address] CLIA#45D [id number] 07/07 CMP A/G ratio Ratio 0.8 2.0 0.8 FINAL Mary Palanisa my Plasma [facility] . [address] [place] [address]. [id number]. [place] [address] CLIA#45D [id number] 07/07 CMP Bilir ubin, total mg/dL 0.2 1.0 0.5 FINAL Mary Palanisa my Plasma [facility] . [address] [place], [place] [address] [facility]. [id number]. [place] [address] CLIA#45D [id number] 07/07 CMP Alkal ine phosp hatas e U/L 46.0 116.0 83 FINAL Mary Palanisa my Plasma [facility] . [address] [place] [address] [employer] [facility]. [id number]. [place] [address] CLIA#45D [id number] 07/07 CMP AST/S GOT U/L 15.0 37.0 22 FINAL Mary Palanisa my Plasma [facility] . [address] [place] [address] [employer] [facility]. [id number]. [place] [address] CLIA#45D [id number] 07/07 CMP ALT/S GPT U/L 14.0 59.0 24 FINAL Mary Palanisa my Plasma [facility] . [address] [place] [address]. [id number]. [place] [address] CLIA#45D [id number] 07/07 Juliet tin panel Juliet tin ng/mL 8.0 252.0 738 High FINAL Mary Palanisa my Serum [facility] . [address] [place] [address]. [id number]. [place] [address] CLIA#45D [id number] 07/07 TIBC and perce nt sat w/ iron panel Iron ug/dL 50.0 170.0 75.00 FINAL Mary Palanisa my Serum [facility] . [address] [place] [address]. [id number]. [place] [address] CLIA#45D [id number] 07/07 TIBC and perce nt sat w/ iron panel TIBC ug/dL 250.0 450.0 272.00 FINAL Mary Palanisa my Serum [facility] . [address] [place] [address]. [id number]. [place] [address] CLIA#45D [id number] 07/07 TIBC and perce nt sat w/ iron panel Iron, % satur ation % 20.0 55.0 27.6 FINAL Mary Palanisa my Serum [facility] . [address] [place] [address]. [id number]. [place] [address] CLIA#45D [id number] 07/07 CBC w/aut o diff with refle x WBC 10^3/u l 4.8 10.8 5.5 FINAL Mary Palanisa my Whole Blood [facility] . [address] [place] [address]. [id number]. [place] [address] CLIA#45D [id number] 07/07 CBC w/aut o diff with refle x RBC 10^6/u l 4.2 5.4 3.76 Low FINAL Mary Palanisa my Whole Blood [facility] . [address] [place] [address]. [id number]. [place] [address] CLIA#45D [id number] 07/07 CBC w/aut o diff with refle x HGB g/dl 12.0 16.0 11.3 Low FINAL Mary Palanisa my Whole Blood [facility] . [facility]. [id number]. [place] [address] CLIA#45D [id number] 07/07 CBC w/aut o diff with refle x HCT % 37.0 47.0 35.5 Low FINAL Mary Palanisa my Whole Blood [facility] . [address] [place] [address]. [id number]. [place] [address] CLIA#45D [id number] 07/07 CBC w/aut o diff with refle x MCV fl 81.0 99.0 94.4 FINAL Mary Palanisa my Whole Blood [facility] . [address] [place] [address]. [id number]. [place] [address] CLIA#45D [id number] 07/07 CBC w/aut o diff with refle x MCH pg 27.0 31.0 30.1 FINAL Mary Palanisa my Whole Blood [facility] . [address] [place] [address]. [id number]. [place] [address] CLIA#45D [id number] 07/07 CBC w/aut o diff with refle x MCHC g/dl 33.0 37.0 31.8 Low FINAL Mary Palanisa my Whole Blood [facility] . [address] [place] [address]. [id number]. [place] [address] CLIA#45D [id number] 07/07 CBC w/aut o diff with refle x RDW % 10.5 14.5 13.2 FINAL Mary Palanisa my Whole Blood [facility] . [address] [place] [address]. [id number]. [place] [address] CLIA#45D [id number] 07/07 CBC w/aut o diff with refle x PLT 10^3/u l 130.0 400.0 277 FINAL Mary Palanisa my Whole Blood [facility] . [address] [place] [address] [employer] [facility]. [id number]. [place] [address] CLIA#45D [id number] 07/07 CBC w/aut o diff with refle x MPV fl 9.4 12.3 10.3 FINAL Mary Palanisa my Whole Blood [facility] . [address] [place] [address]. [id number]. [place] [address] CLIA#45D [id number] 07/07 CBC w/aut o diff with refle x Jordy % % 40.0 77.0 44.9 FINAL Mary Palanisa my Whole Blood [facility] . [address] [place] [address]. [id number]. [place] [address] CLIA#45D [id number] 07/07 CBC w/aut o diff with refle x Jordy # (ANC) 10^3/u l 1.5 6.5 2.5 FINAL Mary Palanisa my Whole Blood [facility] . [address] [place] [address]. [id number]. [place] [address] CLIA#45D [id number] 07/07 CBC w/aut o diff with refle x LY % % 15.0 41.0 29.0 FINAL Mary Palanisa my Whole Blood [facility] . [address] [place] [address]. [id number]. [place] [address] CLIA#45D [id number] 07/07 CBC w/aut o diff with refle x LY # 10^3/u l 1.2 3.4 1.6 FINAL Mary Palanisa my Whole Blood [facility] . [address] [place] [address]. [id number]. [place] [address] CLIA#45D [id number] 07/07 CBC w/aut o diff with refle x MO % % 3.0 11.0 11.6 High FINAL Mary Palanisa my Whole Blood [facility] . [address] [place] [address]. [id number]. [place] [address] CLIA#45D [id number] 07/07 CBC w/aut o diff with refle x MO # 10^3/u l 0.0 1.0 0.6 FINAL Mary Palanisa my Whole Blood [facility] . [address] [place] [address]. [id number]. [place] [address] CLIA#45D [id number] 07/07 CBC w/aut o diff with refle x EO % % 0.0 3.0 12.5 High FINAL Mary Palanisa my Whole Blood [facility] . [address] [place] [address]. [id number]. [place] [address] CLIA#45D [id number] 07/07 CBC w/aut o diff with refle x EO # 10^3/u L 0.0 0.3 0.7 High FINAL Mary Palanisa my Whole Blood [facility] . [address] [place] [address]. [id number]. [place] [address] CLIA#45D [id number] 07/07 CBC w/aut o diff with refle x BA % % 0.0 1.0 0.9 FINAL Mary Palanisa my Whole Blood [facility] . [address] [place] [address]. [id number]. [place] [address] CLIA#45D [id number] 07/07 CBC w/aut o diff with refle x BA # 10^3/u L 0.0 0.2 0.1 FINAL Mary Palanisa my Whole Blood [facility] . [address] [place] [address]. [id number]. [place] [address] CLIA#45D [id number] 07/07 CBC w/aut o diff with refle x IG % % 0.0 0.5 1.10 High FINAL Mary Palanisa my Whole Blood [facility] . [address] [place] [address]. [id number]. [place] [address] CLIA#45D [id number] 07/07 CBC w/aut o diff with refle x IG # 10^3/u L 0.0 0.03 0.06 High FINAL Mary Palanisa my Whole Blood [facility] . [address] [place] [address]. [id number]. [place] [address] CLIA#45D [id number] 07/07 CBC w/aut o diff with refle x NRBC, % % 0.0 0.2 0.0 FINAL Mary Palanisa my Whole Blood [facility] . [address] [place] [address]. [id number]. [facility] [address] CLIA#45D [id number] 07/07 CBC w/aut o diff with refle x NRBC, absol jose, x 10^3/ uL 10^3/u L 0.0 0.012 0.000 FINAL Mary Palanisa my Whole Blood [facility] [place] . [address]. [id number]. [place] [address] CLIA#45D [id number] 07/07 [place] /rodriguez da with K/L ratio , free, serum (mg/d L) [place] [employer] , free mg/L 3.3 19.4 45.9 High FINAL Mary Palanisa my [facility].[address] [place] [address] [address] 12[place] [address] 07/07 [place] /rodriguez da with K/L ratio , free, serum (mg/d L) [place] [employer] , free mg/L 5.7 26.3 26.5 High FINAL Mary Palanisa my [facility].[address] [place] [address] [address] 12[place] [address] 07/07 [place] /rodriguez da with K/L ratio , free, [...] FINAL Mary Palanisa my Serum [facility].[address] [place] [address] [address] 12[place] [address] 10/27 CMP Sodiu m mmol/L 136.0 145.0 140 FINAL Mary Palanisa my Plasma [facility] . [address] [place] [address] [employer] [facility]. [id number]. [place] [address] CLIA#45D [id number] 10/27 CMP Potas sium mmol/L 3.5 5.1 4.7 FINAL Mary Palanisa my Plasma [facility] . [address] [place], [place] [address] [facility]. [id number]. [place] [address] CLIA#45D [id number] 10/27 CMP Chlor loly mmol/L 97.0 107.0 103 FINAL Mary Palanisa my Plasma [facility] . [address] [place] [address] [employer] [facility]. [id number]. [place] [address] CLIA#45D [id number] 10/27 CMP CO2 mmol/L 21.0 32.0 25 FINAL Mary Palanisa my Plasma [facility] . [address] [place], [place] [address] [facility]. [id number]. [place] [address] CLIA#45D [id number] 10/27 CMP Gluco se mg/dL 74.0 106.0 88 FINAL Mary Palanisa my Plasma [facility] . [address] [place] [address] [employer] [facility]. [id number]. [facility] [address] CLIA#45D [id number] 10/27 CMP BUN mg/dL 7.0 18.0 26 High FINAL Mary Palanisa my Plasma [facility] . [address] [place], [place] [address] [facility]. [id number]. [place] [address] CLIA#45D [id number] 10/27 CMP Creat inine , mg/dL mg/dL 0.55 1.3 1.08 FINAL Mary Palanisa my Plasma [facility] . [address] [place] [address] [employer] [facility]. [id number]. [place] [address] CLIA#45D [id number] 10/27 CMP GFR estim ate ml/min /1.73m 2 53 Low Result based on the eGFR 2020 calculati on.60-89 mL/min/1. 73m^2 without kidney damage may be normal.60 -89 mL/min/1. 73m^2 for 3 months or more, along with kidney damage, may indicate early kidney disease.C alculatio n modified to the 2020 formula effective 01/16/23. FINAL Mary Palanisa my Plasma [facility] . [address] [place] [address]. [id number]. [place] [address] CLIA#45D [id number] 10/27 CMP BUN/C reati nine ratio Ratio 6.0 25.0 24.1 FINAL Mary Palanisa my Plasma [facility] . [address] [place] [address]. [id number]. [place] [address] CLIA#45D [id number] 10/27 CMP Calci um mg/dL 8.5 10.1 8.8 FINAL Mary Palanisa my Plasma [facility] . [address] [place] [address]. [id number]. [place] [address] CLIA#45D [id number] 10/27 CMP Total prote in g/dL 6.4 8.2 6.8 FINAL Mary Palanisa my Plasma [facility] . [address] [place] [address]. [id number]. [place] [address] CLIA#45D [id number] 10/27 CMP Album in g/dL 3.4 5.0 2.7 Low FINAL Mary Palanisa my Plasma [facility] . [address] [place] [address]. [id number]. [place] [address] CLIA#45D [id number] 10/27 CMP A/G ratio Ratio 0.8 2.0 0.7 Low FINAL Mary Palanisa my Plasma [facility] . [address] [place] [address]. [id number]. [place] [address] CLIA#45D [id number] 10/27 CMP Bilir ubin, total mg/dL 0.2 1.0 0.3 FINAL Mary Palanisa my Plasma [facility] . [address] [place] [address] [employer] [facility]. [id number]. [place] [address] CLIA#45D [id number] 10/27 CMP Alkal ine phosp hatas e U/L 46.0 116.0 89 FINAL Mary Palanisa my Plasma [facility] . [address]. [id number]. [place] [address] CLIA#45D [id number] 10/27 CMP AST/S GOT U/L 15.0 37.0 18 FINAL Mary Palanisa my Plasma [facility] . [address] [place] [address]. [id number]. [place] [address] CLIA#45D [id number] 10/27 CMP ALT/S GPT U/L 14.0 59.0 19 FINAL Mary Palanisa my Plasma [facility] . [address] [place] [address]. [id number]. [place] [address] CLIA#45D [id number] 10/27 CBC w/aut o diff with refle x WBC 10^3/u l 4.8 10.8 9.7 FINAL Mary Palanisa my Whole Blood [facility] . [address] [place] [address]. [id number]. [place] [address] CLIA#45D [id number] 10/27 CBC w/aut o diff with refle x RBC 10^6/u l 4.2 5.4 3.48 Low FINAL Mary Palanisa my Whole Blood [facility] . [address] [place] [address]. [id number]. [place] [address] CLIA#45D [id number] 10/27 CBC w/aut o diff with refle x HGB g/dl 12.0 16.0 10.0 Low FINAL Mary Palanisa my Whole Blood [facility] . [address] [place] [address]. [id number]. [place] [address] CLIA#45D [id number] 10/27 CBC w/aut o diff with refle x HCT % 37.0 47.0 32.4 Low FINAL Mary Palanisa my Whole Blood [facility] . [address] [place] [address]. [id number]. [place] [address] CLIA#45D [id number] 10/27 CBC w/aut o diff with refle x MCV fl 81.0 99.0 93.1 FINAL Mary Palanisa my Whole Blood [facility] . [address] [place], [place] [address] [facility]. [id number]. [place] [address] CLIA#45D [id number] 10/27 CBC w/aut o diff with refle x MCH pg 27.0 31.0 28.7 FINAL Mary Palanisa my Whole Blood [facility] . [address] [place] [address]. [id number]. [place] [address] CLIA#45D [id number] 10/27 CBC w/aut o diff with refle x MCHC g/dl 33.0 37.0 30.9 Low FINAL Mary Palanisa my Whole Blood [facility] . [address] [place] [address]. [id number]. [place] [address] CLIA#45D [id number] 10/27 CBC w/aut o diff with refle x RDW % 10.5 14.5 15.3 High FINAL Mary Palanisa my Whole Blood [facility] . [address] [place] [address]. [id number]. [place] [address] CLIA#45D [id number] 10/27 CBC w/aut o diff with refle x PLT 10^3/u l 130.0 400.0 446 High FINAL Mary Palanisa my Whole Blood [facility] . [address] [place] [address]. [id number]. [place] [address] CLIA#45D [id number] 10/27 CBC w/aut o diff with refle x MPV fl 9.4 12.3 10.2 FINAL Mary Palanisa my Whole Blood [facility] . [address] [place] [address]. [id number]. [place] [address] CLIA#45D [id number] 10/27 CBC w/aut o diff with refle x Jordy % % 40.0 77.0 64.4 FINAL Mary Palanisa my Whole Blood [facility] . [address] [place], [place] [address] [facility]. [id number]. [place] [address] CLIA#45D [id number] 10/27 CBC w/aut o diff with refle x Jordy # (ANC) 10^3/u l 1.5 6.5 6.2 FINAL Mary Palanisa my Whole Blood [facility] . [address] [place] [address]. [id number]. [place] [address] CLIA#45D [id number] 10/27 CBC w/aut o diff with refle x LY % % 15.0 41.0 14.6 Low FINAL Mary Palanisa my Whole Blood [facility] . [address] [place] [address]. [id number]. [place] [address] CLIA#45D [id number] 10/27 CBC w/aut o diff with refle x LY # 10^3/u l 1.2 3.4 1.4 FINAL Mary Palanisa my Whole Blood [facility] . [address] [place] [address]. [id number]. [place] [address] CLIA#45D [id number] 10/27 CBC w/aut o diff with refle x MO % % 3.0 11.0 10.7 FINAL Mary Palanisa my Whole Blood [facility] . [address] [place] [address]. [id number]. [place] [address] CLIA#45D [id number] 10/27 CBC w/aut o diff with refle x MO # 10^3/u l 0.0 1.0 1.0 FINAL Mary Palanisa my Whole Blood [facility] . [address] [place] [address]. [id number]. [place] [address] CLIA#45D [id number] 10/27 CBC w/aut o diff with refle x EO % % 0.0 3.0 7.1 High FINAL Mary Palanisa my Whole Blood [facility] . [address] [place] [address]. [id number]. [place] [address] CLIA#45D [id number] 10/27 CBC w/aut o diff with refle x EO # 10^3/u L 0.0 0.3 0.7 High FINAL Mary Palanisa my Whole Blood [facility] . [address] [place] [address]. [id number]. [place] [address] CLIA#45D [id number] 10/27 CBC w/aut o diff with refle x BA % % 0.0 1.0 1.1 High FINAL Mary Palanisa my Whole Blood [facility] . [address] [place], [place] [address] [facility]. [id number]. [place] [address] CLIA#45D [id number] 10/27 CBC w/aut o diff with refle x BA # 10^3/u L 0.0 0.2 0.1 FINAL Mary Palanisa my Whole Blood [facility] . [address] [place] [address]. [id number]. [place] [address] CLIA#45D [id number] 10/27 CBC w/aut o diff with refle x IG % % 0.0 0.5 2.10 High FINAL Mary Palanisa my Whole Blood [facility] . [address] [place] [address]. [id number]. [place] [address] CLIA#45D [id number] 10/27 CBC w/aut o diff with refle x IG # 10^3/u L 0.0 0.03 0.20 High FINAL Mary Palanisa my Whole Blood [facility] . [address] [place] [address]. [id number]. [place] [address] CLIA#45D [id number] 10/27 CBC w/aut o diff with refle x NRBC, % % 0.0 0.2 0.0 FINAL Mary Palanisa my Whole Blood [facility] . [address] [place] [address]. [id number]. [place] [address] CLIA#45D [id number] 10/27 CBC w/aut o diff with refle x NRBC, absol jose, x 10^3/ uL 10^3/u L 0.0 0.012 0.000 FINAL Mary Palanisa my Whole Blood [facility] . [address] [place], [place] [address] [facility]. [id number]. [place] [address] CLIA#45D [id number] 10/27 Juliet tin panel Juliet tin ng/mL 8.0 252.0 953 High FINAL Mary Palanisa my Serum [facility] . [address] [place] [address] [employer] [facility]. [id number]. [place] [address] CLIA#45D [id number] 10/27 TIBC and perce nt sat w/ iron panel Iron ug/dL 50.0 170.0 24.00 Low FINAL Mary Palanisa my Serum [facility] . [address] [place] [address]. [id number]. [place] [address] CLIA#45D [id number] 10/27 TIBC and perce nt sat w/ iron panel TIBC ug/dL 250.0 450.0 202.00 Low FINAL Mary Palanisa my Serum [facility] . [address] [place] [address]. [id number]. [place] [address] CLIA#45D [id number] 10/27 TIBC and perce nt sat w/ iron panel Iron, % satur ation % 20.0 55.0 11.9 Low FINAL Mary Palanisa my Serum [facility] . [address] [place] [address]. [id number]. [place] [address] CLIA#45D [id number] 04/26 SPEP with immun ofixa tion Total prote in g/dL 6.1 8.1 7.1 FINAL Mary Palanisa my [facility] [place] [address] [address] [address] 04/26 SPEP with immun ofixa tion NOHEMI inter preta tion Results Below Normal pattern. No monoclona l proteins detected. FINAL Mary Palanisa my [facility] [place] [address] [address] [address] 04/26 SPEP with immun ofixa tion Album in, SPE g/dL 3.8 4.8 3.6 Low FINAL Mary Palanisa my [facility] [place] [address] [address] [address] 04/26 SPEP with immun ofixa tion Alpha -1 globu ashley g/dL 0.2 0.3 0.3 FINAL Mary Palanisa my [facility] [place] [address] [address] [address] 04/26 SPEP with immun ofixa tion Alpha -2 globu ashley g/dL 0.5 0.9 0.8 FINAL Mary Palanisa my Serum [facility] [place] [address] [address] [address] 04/26 SPEP with immun ofixa tion Beta- 1 g/dL 0.4 0.6 0.5 FINAL Mary Palanisa my [facility].[address] [address] [address] [address] 04/26 SPEP with immun ofixa tion Beta- 2 g/dL 0.2 0.5 0.4 FINAL Mary Palanisa my [facility].2 [address] [address] [address] [address] 04/26 SPEP with immun ofixa tion Gamma globu ashley g/dL 0.8 1.7 1.5 FINAL Mary Palanisa my [facility].2 [address] [address] [address] [address] 04/26 SPEP with immun ofixa tion SPE inter preta tion Results Below Abnormal appearing globulin peak, possibly monoclona l. If indicated , recommend immunotyp ing (Test Code: IMTYPB) for further evaluatio n. If the SPEP wasordere d with reflex, immunotyp ing will be resulted upon completio n. FINAL Mary Palanisa my [facility]2 [address] [address] [address] [address] 04/26 Juliet tin panel Juliet tin ng/mL 8.0 252.0 266 High FINAL Mary Palanisa my Serum [facility].[address] [place] [address] CLIA#45D [id number] 04/26 TIBC and perce nt sat w/ iron panel Iron ug/dL 65.0 175.0 30.0 Low FINAL Mary Palanisa my Serum [facility].[address] [place] [address] CLIA#45D [id number] 04/26 TIBC and perce nt sat w/ iron panel TIBC ug/dL 250.0 450.0 283.0 FINAL Mary Palanisa my Serum [facility].[address] [place] [address] CLIA#45D [id number] 04/26 TIBC and perce nt sat w/ iron panel Iron, % satur ation % 15.0 50.0 11 Low FINAL Mary Palanisa my Serum [facility].[address] [facility] [address] [place] [address] CLIA#45D [id number] 04/26 CMP Sodiu m mmol/L 136.0 145.0 140 FINAL Mary Palanisa my Plasma [facility] [address] [facility] [address] [place] [address] CLIA#45D [id number] 04/26 CMP Potas sium mmol/L 3.5 5.1 4.9 FINAL Mary Palanisa my Plasma [facility] [address] [facility] [address] [place] [address] CLIA#45D [id number] 04/26 CMP Chlor loly mmol/L 97.0 107.0 104 FINAL Mary Palanisa my Plasma [facility].[address] [facility] [address] [place] [address] CLIA#45D [id number] 04/26 CMP CO2 mmol/L 21.0 32.0 26.0 FINAL Mary Palanisa my Plasma [facility].[address] [facility] [address] [place] [address] CLIA#45D [id number] 04/26 CMP Gluco se mg/dL 74.0 106.0 120 High FINAL Mary Palanisa my Plasma [facility].[address] [facility] [address] [place] [address] CLIA#45D [id number] 04/26 CMP BUN mg/dL 7.0 18.0 37 High FINAL Mary Palanisa my Plasma [facility].52 [address] [facility] [address] [place] [address] CLIA#45D [id number] 04/26 CMP Creat inine , mg/dL mg/dL 0.55 1.3 1.42 High FINAL Mary Palanisa my Plasma [facility].[address] [facility] [address] [place] [address] CLIA#45D [id number] 04/26 CMP GFR estim ate mil/mi n/1.73 m2 38 Low Result based on the eGFR 2020 calculati on.60-89 mL/min/1. 73m^2 without kidney damage may be normal.60 -89 mL/min/1. 73m^2 for 3 months or more, along with kidney damage, may indicate early kidney disease.C alculatio n modified to the 2020 formula effective 01/16/23. FINAL Mary Palanisa my Plasma [facility].52 [address] [facility] [address] [place] [address] CLIA#45D [id number] 04/26 CMP BUN/C reati nine ratio 6.0 25.0 26.1 High FINAL Mary Palanisa my Plasma [facility].[address] [facility] [address] [facility] [address] [place] [address] CLIA#45D [id number] 04/26 CMP Album in g/dL 3.4 5.0 3.2 Low FINAL Mary Palanisa my Plasma [facility].[address] [facility] [address] [facility] [address] [place] [address] CLIA#45D [id number] 04/26 CMP Calci um mg/dL 8.5 10.1 9.1 FINAL Mary Palanisa my Plasma [facility].[address] [facility] [address] [facility] [address] [place] [address] CLIA#45D [id number] 04/26 CMP Total prote in g/dL 6.4 8.2 7.8 FINAL Mary Palanisa my Plasma [facility].[address] [facility] [address] [facility] [address] [place] [address] CLIA#45D [id number] 04/26 CMP Globu ashley g/dL 2.2 4.2 4.6 High FINAL Mary Palanisa my Plasma [facility].[address] [facility] [address] [place] [address] CLIA#45D [id number] 04/26 CMP A/G ratio 0.8 2.0 0.7 Low FINAL Mary Palanisa my Plasma [facility].[address] [facility] [address] [place] [address] CLIA#45D [id number] 04/26 CMP Bilir ubin, total mg/dL 0.2 1.0 0.5 FINAL Mary Palanisa my Plasma [facility].[address] [facility] [address] [place] [address] CLIA#45D [id number] 04/26 CMP Alkal ine phosp hatas e U/L 46.0 116.0 93 FINAL Mary Palanisa my Plasma [facility].[address] [facility] [address] [place] [address] CLIA#45D [id number] 04/26 CMP AST/S GOT U/L 15.0 37.0 17 FINAL Mary Palanisa my Plasma [facility].[address] [facility] [address] [place] [address] CLIA#45D [id number] 04/26 CMP ALT/S GPT U/L 14.0 59.0 26 FINAL Mary Palanisa my Plasma [facility].[address] [facility] [address] [place] [address] CLIA#45D [id number] 04/26 CBC w/aut o diff with refle x WBC 10^3/u L 4.8 10.8 6.4 FINAL Mary Palanisa my Whole Blood [facility].52 [address] [facility] [address] [place] [address] CLIA#45D [id number] 04/26 CBC w/aut o diff with refle x RBC 10^6/u L 4.2 5.4 4.06 Low FINAL Mary Palanisa my Whole Blood [facility].52 [address] [facility] [address] [place] [address] CLIA#45D [id number] 04/26 CBC w/aut o diff with refle x HGB g/dL 12.0 16.0 11.1 Low FINAL Mary Palanisa my Whole Blood [facility].52 [address] [facility] [address] [place] [address] CLIA#45D [id number] 04/26 CBC w/aut o diff with refle x HCT % 37.0 47.0 37.0 FINAL Mary Palanisa my Whole Blood [facility].[address] [facility] [address] [place] [address] CLIA#45D [id number] 04/26 CBC w/aut o diff with refle x MCV fL 81.0 99.0 91.1 FINAL Mary Palanisa my Whole Blood [facility].[address] [facility] [address] [place] [address] CLIA#45D [id number] 04/26 CBC w/aut o diff with refle x MCH pg 27.0 31.0 27.3 FINAL Mary Palanisa my Whole Blood [facility].[address] [facility] [address] [place] [address] CLIA#45D [id number] 04/26 CBC w/aut o diff with refle x MCHC g/dL 33.0 37.0 30.0 Low FINAL Mary Palanisa my Whole Blood [facility].52 [address] [facility] [address] [place] [address] CLIA#45D [id number] 04/26 CBC w/aut o diff with refle x PLT 10^3/u L 130.0 400.0 256 FINAL Mary Palanisa my Whole Blood [facility].52 [address] [facility] [address] [place] [address] CLIA#45D [id number] 04/26 CBC w/aut o diff with refle x MPV fL 9.4 12.3 10.7 FINAL Mary Palanisa my Whole Blood [facility].52 [address] [facility] [address] [place] [address] CLIA#45D [id number] 04/26 CBC w/aut o diff with refle x RDW % 10.5 14.5 15.9 High FINAL Mary Palanisa my Whole Blood [facility].52 [address] [facility] [address] e [address] [place] [address] CLIA#45D [id number] 04/26 CBC w/aut o diff with refle x Jordy % % 40.0 77.0 56.0 FINAL Mary Palanisa my Whole Blood [facility].52 [address] [facility] [address] [place] [address] CLIA#45D [id number] 04/26 CBC w/aut o diff with refle x Jordy # (ANC) 10^3/u L 1.5 6.5 3.57 FINAL Mary Palanisa my Whole Blood [facility].52 [address] [facility] [address] [place] [address] CLIA#45D [id number] 04/26 CBC w/aut o diff with refle x IG % % 0.0 0.5 0.3 FINAL Mary Palanisa my Whole Blood [facility].[address] [facility] [address] [place] [address] CLIA#45D [id number] 04/26 CBC w/aut o diff with refle x IG # 10^3/u L 0.0 0.03 0.02 FINAL Mary Palanisa my Whole Blood [facility].52 [address] [facility] [address] [place] [address] CLIA#45D [id number] 04/26 CBC w/aut o diff with refle x LY % % 15.0 41.0 19.6 FINAL Mary Palanisa my Whole Blood [facility].52 [address] [facility] [address] e [address] [place] [address] CLIA#45D [id number] 04/26 CBC w/aut o diff with refle x LY # 10^3/u L 1.2 3.4 1.25 FINAL Mary Palanisa my Whole Blood [facility].52 [address] [facility] [address] [place] [address] CLIA#45D [id number] 04/26 CBC w/aut o diff with refle x MO % % 3.0 11.0 9.7 FINAL Mary Palanisa my Whole Blood [facility].[address] [facility] [address] [place] [address] CLIA#45D [id number] 04/26 CBC w/aut o diff with refle x MO # 10^3/u L 0.0 1.0 0.62 FINAL Mary Palanisa my Whole Blood [facility].[address] [facility] [address] [place] [address] CLIA#45D [id number] 04/26 CBC w/aut o diff with refle x EO % % 0.0 3.0 13.0 High FINAL Mary Palanisa my Whole Blood [facility].[address] [facility] [address] [place] [address] CLIA#45D [id number] 04/26 CBC w/aut o diff with refle x EO # 10^3/u L 0.0 0.3 0.83 High FINAL Mary Palanisa my Whole Blood [facility].52 [address] [facility] [address] [place] [address] CLIA#45D [id number] 04/26 CBC w/aut o diff with refle x BA % % 0.0 1.0 1.4 High FINAL Mary Palanisa my Whole Blood [facility].[address] [facility] [address] [place] [address] CLIA#45D [id number] 04/26 CBC w/aut o diff with refle x BA # 10^3/u L 0.0 0.2 0.09 FINAL Mary Palanisa my Whole Blood [facility].[address] [facility] [facility] [address] [place] [address] CLIA#45D [id number] 04/26 CBC w/aut o diff with refle x NRBC, % % 0.0 0.2 0.0 FINAL Mary Palanisa my Whole Blood [facility].[address] [facility] [address] [place] [address] CLIA#45D [id number] 04/26 CBC w/aut o diff with refle x NRBC, absol jose, x 10^3/ uL 10^3/u L 0.0 0.01 0.00 FINAL Mary Palanisa my Whole Blood [facility].[address] [facility] [address] [place] [address] CLIA#45D [id number] 04/26 [place] /rodriguez da with K/L ratio , free, serum (mg/d L) [place] light chain , free mg/L 3.3 19.4 86.9 High FINAL Mary Palanisa my [facility].2 [address] [address] [address] [address] 04/26 [place] /rodriguez da with K/L ratio , free, serum (mg/d L) [place] a light chain , free mg/L 5.7 26.3 37.3 High FINAL Mary Palanisa my [facility].2 [address] [address] [address] [address] 04/26 [place] /rodriguez da with K/L ratio , free, [...] Mary Rudolph my [facility].2 [address] [address] [address] [address] 11/07 CMP Chlor loly mmol/L 97.0 107.0 106 FINAL [facility].52 [address] [facility] [address] [place] [address] CLIA#45D [id number] 11/07 CMP CO2 mmol/L 21.0 32.0 28.0 FINAL [facility].52 [address] [facility] [address] [place] [address] CLIA#45D [id number] 11/07 CMP Gluco se mg/dL 74.0 106.0 74 FINAL [facility].52 [address] [facility] [address] [place] [address] CLIA#45D [id number] 11/07 CMP BUN mg/dL 7.0 18.0 35 High FINAL [facility].52 [address] [facility] [address] [place] [address] CLIA#45D [id number] 11/07 CMP Creat inine , mg/dL mg/dL 0.55 1.3 1.41 High FINAL [facility].52 [address] [facility] [address] [place] [address] CLIA#45D [id number] 11/07 CMP GFR estim ate mil/mi n/1.73 m2 38 Low Result based on the eGFR 2020 calculati on.60-89 mL/min/1. 73m^2 without kidney damage may be normal.60 -89 mL/min/1. 73m^2 for 3 months or more, along with kidney damage, may indicate early kidney disease.C alculatio n modified to the 2020 formula effective 01/16/23. FINAL [facility].[address] [facility] [address] [place] [address] CLIA#45D [id number] 11/07 CMP BUN/C reati nine ratio 6.0 25.0 24.8 FINAL [facility].[address] [facility] [address] [place] [address] CLIA#45D [id number] 11/07 CMP Calci um mg/dL 8.5 10.1 9.7 FINAL [facility].[address] [facility] [address] [place] [address] CLIA#45D [id number] 11/07 CMP Album in g/dL 3.4 5.0 3.1 Low FINAL [facility].[address] [facility] [address] [place] [address] CLIA#45D [id number] 11/07 CMP Total prote in g/dL 6.4 8.2 7.3 FINAL [facility].52 [address] [facility] [address] [place] [address] CLIA#45D [id number] 11/07 CMP Globu ashley g/dL 2.2 4.2 4.2 FINAL [facility].[address] [facility] [address] [place] [address] CLIA#45D [id number] 11/07 CMP A/G ratio 0.8 2.0 0.7 Low FINAL [facility].[address] [facility] [address] [place] [address] CLIA#45D [id number] 11/07 CMP Bilir ubin, total mg/dL 0.2 1.0 0.6 FINAL [facility].52 [address] [facility] [address] [place] [address] CLIA#45D [id number] 11/07 CMP Alkal ine phosp hatas e U/L 46.0 116.0 100 FINAL [facility].[address] [facility] [address] [place] [address] CLIA#45D [id number] 11/07 CMP AST/S GOT U/L 15.0 37.0 26 FINAL [facility].[address] [facility] [address] [address] [place] [address] CLIA#45D [id number] 11/07 CMP ALT/S GPT U/L 14.0 59.0 27 FINAL [facility].52 [address] [facility] [address] [place] [address] CLIA#45D [id number] 11/07 CMP Sodiu m mmol/L 136.0 145.0 143 FINAL [facility].52 [address] [facility] [address] [place] [address] CLIA#45D [id number] 11/07 CMP Potas sium mmol/L 3.5 5.1 4.3 FINAL [facility].52 [address] [facility] [address] [place] [address] CLIA#45D [id number] 11/07 TIBC and perce nt sat w/ iron panel Iron ug/dL 50.0 170.0 60.0 FINAL [facility].[address] [facility] [address] [place] [address] CLIA#45D [id number] 11/07 TIBC and perce nt sat w/ iron panel TIBC ug/dL 250.0 450.0 311.0 FINAL [facility].52 [address] [facility] [address] [place] [address] CLIA#45D [id number] 11/07 TIBC and perce nt sat w/ iron panel Iron, % satur ation % 15.0 50.0 19 FINAL [facility].52 [address] [facility] [address] [place] [address] CLIA#45D [id number] 11/07 Juliet tin panel Juliet tin ng/mL 8.0 252.0 228 FINAL Tayler Jacobs Serum [facility].[address] [facility] [address] [place] [address] CLIA#45D [id number] 11/07 SPEP with immun ofixa tion Total prote in g/dL 6.1 8.1 6.4 FINAL [facility].[address] [place] [address] [address] [address] 11/07 SPEP with immun ofixa tion NOHEMI inter preta tion Results Below Normal pattern. No monoclona l proteins detected. FINAL Luis Brown [facility].[address] [place] [address] [address] [address] 11/07 SPEP with immun ofixa tion Album in, SPE g/dL 3.8 4.8 3.4 Low FINAL [facility].[address] [place] [address] [address] [address] 11/07 SPEP with immun ofixa tion Alpha -1 globu ashley g/dL 0.2 0.3 0.3 [facility]AL [facility] [place] [address] [address] [address] 11/07 SPEP with immun ofixa tion Alpha -2 globu ashley g/dL 0.5 0.9 0.7 FINAL [facility].[address] [place] [address] [address] [address] 11/07 SPEP with immun ofixa tion Beta- 1 g/dL 0.4 0.6 0.4 FINAL [facility].[address] [place] [address] [address] [address] 11/07 SPEP with immun ofixa tion Beta- 2 g/dL 0.2 0.5 0.4 FINAL [facility].[address] [place] [address] [address] [address] 11/07 SPEP with immun ofixa tion Gamma globu ashley g/dL 0.8 1.7 1.1 FINAL Luis [facility] Serum [facility].[address] [place] [address] [address] [address] 11/07 SPEP with immun ofixa tion SPE inter preta tion Results Below Abnormal appearing gamma globulin peak, possibly monoclona l. If indicated ,recommen d immunotyp ing (Test Code: IMTYPB) for further evaluatio n. If the SPEPwas ordered with reflex, immunotyp ing will be resulted upon completio n. FINAL Luis [facility] Serum [facility].[address] [place] [address] [address] [address] 11/07 [place] /rodriguez da with K/L ratio , free, serum (mg/d L) [place] light [employer] , free mg/L 3.3 19.4 73.5 High FINAL Luis [facility].[address] [place] [address] [address] [address] 11/07 [place] /rodriguez da with K/L ratio , free, serum (mg/d L) [place] a light chain , free mg/L 5.7 26.3 35.8 High FINAL [facility].[address] [place] [address] [address] [address] 11/07 [place] /rodriguez da with K/L ratio , free, [...] therapy of these disorders . FINAL Luis [facility] Serum [facility].[address] [place] [address] [address] [address] 11/07 CBC w/aut o diff with refle x WBC 10^3/u L 4.8 10.8 4.6 Low FINAL Luis Tucker Whole Blood [facility].[address] [place] [address] CLIA#45D [id number] 11/07 CBC w/aut o diff with refle x RBC 10^6/u L 4.2 5.4 4.23 FINAL Luis Tucker Whole Blood [facility].[address] [place] [address] CLIA#45D [id number] 11/07 CBC w/aut o diff with refle x HGB g/dL 12.0 16.0 12.4 FINAL Luis Tucker Whole Blood [facility].[address] [place] [address] CLIA#45D [id number] 11/07 CBC w/aut o diff with refle x HCT % 37.0 47.0 40.8 FINAL Luis Tucker Whole Blood [facility].[address] [place] [address] CLIA#45D [id number] 11/07 CBC w/aut o diff with refle x MCV fL 81.0 99.0 96.5 FINAL Luis Tucker Whole Blood [facility].[address] [place] [address] CLIA#45D [id number] 11/07 CBC w/aut o diff with refle x MCH pg 27.0 31.0 29.3 FINAL Luis Tucker Whole Blood [facility].[address] [place] [address] CLIA#45D [id number] 11/07 CBC w/aut o diff with refle x MCHC g/dL 33.0 37.0 30.4 Low FINAL Luis Tucker Whole Blood [facility].[address] [place] [address] CLIA#45D [id number] 11/07 CBC w/aut o diff with refle x PLT 10^3/u L 130.0 400.0 216 FINAL Luis Tucker Whole Blood [facility].[address] [place] [address] CLIA#45D [id number] 11/07 CBC w/aut o diff with refle x MPV fL 9.4 12.3 10.3 FINAL Luis Tucker Whole Blood [facility].[address] [place] [address] CLIA#45D [id number] 11/07 CBC w/aut o diff with refle x RDW % 10.5 14.5 14.0 FINAL Luis Tucker Whole Blood [facility].[address] [place] [address] CLIA#45D [id number] 11/07 CBC w/aut o diff with refle x Jordy % % 40.0 77.0 59.7 FINAL Luis [facility] Whole Blood [facility].[address] [place] [address] CLIA#45D [id number] 11/07 CBC w/aut o diff with refle x Jordy # (ANC) 10^3/u L 1.5 6.5 2.73 FINAL Luis [facility] Whole Blood [facility].[address] [place] [address] CLIA#45D [id number] 11/07 CBC w/aut o diff with refle x IG % % 0.0 0.5 0.4 FINAL Luis Tucker Whole Blood [facility].[address] [place] [address] CLIA#45D [id number] 11/07 CBC w/aut o diff with refle x IG # 10^3/u L 0.0 0.03 0.02 FINAL Luis Tucker Whole Blood [facility].[address] [place] [address] CLIA#45D [id number] 11/07 CBC w/aut o diff with refle x LY % % 15.0 41.0 19.0 FINAL Luis Brown Whole Blood [facility].[address] [place] [address] CLIA#45D [id number] 11/07 CBC w/aut o diff with refle x LY # 10^3/u L 1.2 3.4 0.87 Low FINAL Luis Brown Whole Blood [facility].[address] [place] [address] CLIA#45D [id number] 11/07 CBC w/aut o diff with refle x MO % % 3.0 11.0 9.8 FINAL Luis Brown Whole Blood [facility].[address] [place] [address] CLIA#45D [id number] 11/07 CBC w/aut o diff with refle x MO # 10^3/u L 0.0 1.0 0.45 FINAL Luis Brown Whole Blood [facility].[address] [place] [address] CLIA#45D [id number] 11/07 CBC w/aut o diff with refle x EO % % 0.0 3.0 9.6 High FINAL Luis Brown Whole Blood [facility].[address] [facility] [address] [place] [address] CLIA#45D [id number] 11/07 CBC w/aut o diff with refle x EO # 10^3/u L 0.0 0.3 0.44 High FINAL Luis Brown Whole Blood [facility].[address] [place] [address] CLIA#45D [id number] 11/07 CBC w/aut o diff with refle x BA % % 0.0 1.0 1.5 High FINAL Luis Brown Whole Blood [facility].[address] [place] [address] CLIA#45D [id number] 11/07 CBC w/aut o diff with refle x BA # 10^3/u L 0.0 0.2 0.07 FINAL [facility] Blood [facility].[address] [facility] [address] [place] [address] CLIA#45D [id number] 11/07 CBC w/aut o diff with refle x NRBC, % % 0.0 0.2 0.0 FINAL [facility] Blood [facility].[address] [place] [address] CLIA#45D [id number] 11/07 CBC w/aut o diff with refle x NRBC, absol jose, x 10^3/ uL 10^3/u L 0.0 0.01 0.00 FINAL [facility] Blood [facility].[address] [place] [address] CLIA#45D [id number] Medications Date Name Route Dose Frequency Instructions [...] Section * REYES HemOnc Follow Up - [facility] [address] [address] P:?? PATIENT:??JAMESON DOTSON :??1945 Date of Service:??07/07/2023 [...] insufficiency and proteinuria.?? 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 Past Surgical History*: CHAINER History: Medications: {Medications reviewed and reconciled with patient.} * Atorvastatin Oral 10 mg tablet 1 TABLET(S) PO daily * Omeprazole Oral Delayed Release Tablet 20 mg tablet,delayed release (DR/EC) 1 TABLET(S), ENTERIC COATED PO daily * Spironolactone Oral 25 mg tablet 1 TABLET(S) PO daily * Aspirin Oral 81 mg 1 TABLET(S) PO daily * Pclubbvmhrh-Zosgdukpe-Qxgfygtb Inhaler 100 mcg-62.5 mcg-25 mcg/actuation 100-62.5-25 mcg [...] 3 adult children.?? 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 [...]
--- OUTSIDE RECORDS SUMMARY | 2025-01-28 19:47 | XMS_ITS | CCD ---
Author Name Interface, [id number] lity Address [place] [address] Organization [facility] Address [place] [address] Care Team Providers Care Licensed Tax Consultant Name Role Phone Mary Gomez Unavailable Unavailable Care Plan Reason for Visit Encounters Functional Status Diagnostic Results Medications Problems Procedures Social History Vital Signs
--- OUTSIDE RECORDS SUMMARY | 2025-01-28 19:48 | XMS_ITS ---
Author Name Interface, [id number] lity Address [place] [address] Organization [facility] Address [place] [address] Care Team Providers Care Skimmer Reverberatory Name Role Phone Matt José Unavailable Unavailable [...] LABORDER CBC w/ auto diff 07/07/2023 LABORDER [place]/lambda wit h K/L ratio, free, serum (mg/dL) [...] LABORDER SPEP with immuno fixation 04/26/2024 LABORDER [place]/lambda wit h K/L ratio, free, serum (mg/dL) 04/26/2024 LABORDER CBC w/auto diff with reflex 11/07/2024 LABORDER SPEP with immuno fixation 11/07/2024 LABORDER CBC w/auto diff with reflex 11/07/2024 LABORDER [place]/lambda wit h K/L ratio, free, serum (mg/dL) 11/07/2024 LABORDER CMP 11/07/2024 LABORDER Iron, TIBC, Ferr itin panel 05/16/2025 LABORDER CBC w/auto diff with reflex 05/16/2025 LABORDER SPEP with immuno fixation 05/16/2025 LABORDER CMP 05/16/2025 LABORDER [place]/lambda wit h K/L ratio, free, serum (mg/dL) [...] FINAL [facility] [place] [address] 12.[place] [address] 07/07 SPEP with immun ofixa tion Alpha -1 globu ashley g/dL 0.2 0.5 0.5 FINAL [facility] [place] [address] 12[place] [address] 07/07 SPEP with immun ofixa tion Alpha -2 globu ashley g/dL 0.4 1.0 0.8 FINAL [facility] [place] [address] [address] 12[place] [address] 07/07 SPEP with immun ofixa tion Beta globu ashley g/dL 0.5 1.1 0.7 FINAL [facility] [address] [address] [address] 12[place] [address] 07/07 SPEP with immun ofixa tion Gamma globu ashley g/dL 0.7 1.5 0.9 FINAL Mary John[facility] [address] [address] [address] 12[place] [address] 07/07 SPEP with immun ofixa tion Parap rotei n band, g/dL g/dL None FINAL [facility] [address] [address] [address] 12[place] [address] 07/07 SPEP with immun ofixa tion Total prote in elect ropho resis g/dL 5.7 8.2 6.1 FINAL [facility] [address] [address] [place] 12[place] [address] 07/07 SPEP with immun ofixa tion SPE inter preta tion Results Below Normal serum total protein with normal electroph oretic pattern. FINAL [facility] [address] [address] [address] 12[place] [address] 07/07 SPEP with immun ofixa tion Immun ofixa tion, serum , inter preta tion Results Below No monoclona l peaks detected. FINAL [facility] [address] [address] [address] 12[place] [address] 07/07 CMP Sodiu m mmol/L 136.0 145.0 137 FINAL Mary Palanisa my Plasma [facility] . [address] [place] [address] [place]. [id number]. [place] [address] CLIA#45D [id number] 07/07 CMP Potas sium mmol/L 3.5 5.1 4.1 FINAL Mary Palanisa [facility] Plasma [facility] . [address] [place] [address] [place]. [id number]. [place] [address] CLIA#45D [id number] 07/07 CMP Chlor loly mmol/L 97.0 107.0 101 FINAL Mary Palanisa [facility] Plasma [facility] . [address] [place] [address]. [id number]. [place] [address] CLIA#45D [id number] 07/07 CMP CO2 mmol/L 21.0 32.0 32 FINAL Mary Palanisa [facility] . [address] [place] [address]. [id number]. [place] [address] CLIA#45D [id number] 07/07 CMP Gluco se mg/dL 74.0 106.0 115 High FINAL Mary Palanisa my Plasma [facility] . [address] [place] [address]. [id number]. [place] [address] CLIA#45D [id number] 07/07 CMP BUN mg/dL 7.0 18.0 21 High FINAL Mary Palanisa my Plasma [facility] . [address] [place] [address]. [id number]. [place] [address] CLIA#45D [id number] 07/07 CMP Creat inine , mg/dL mg/dL 0.55 1.3 1.50 High FINAL Mary Palanisa [facility] . [address] [place] [address]. [id number]. [place] [address] CLIA#45D [id number] 07/07 CMP GFR estim ate ml/min /1.73m 2 36 Low Result based on the eGFR 2020 calculati on.60-89 mL/min/1. 73m^2 without kidney damage may be normal.60 -89 mL/min/1. 73m^2 for 3 months or more, along with kidney damage, may indicate early kidney disease.C alculatio n modified to the 2020 formula effective 01/16/23. FINAL Mary Palanisa my Plasma [facility] . [address] [place] [address]. [id number]. [place] [address] CLIA#45D [id number] 07/07 CMP BUN/C reati nine ratio Ratio 6.0 25.0 14.0 FINAL Mary Palanisa my Plasma [facility] . [address] [place], [place] [address] [facility]. [id number]. [place] [address] CLIA#45D [id number] 07/07 CMP Calci um mg/dL 8.5 10.1 9.6 FINAL Mary Palanisa my Plasma [facility] . [address] [place] [address]. [id number]. [place] [address] CLIA#45D [id number] 07/07 CMP Total prote in g/dL 6.4 8.2 6.5 FINAL Mary Palanisa my Plasma [facility] . [address] [place] [address]. [id number]. [place] [address] CLIA#45D [id number] 07/07 CMP Album in g/dL 3.4 5.0 2.9 Low FINAL Mary Palanisa [facility] Plasma [facility] . [address] [place] [address]. [id number]. [place] [address] CLIA#45D [id number] 07/07 CMP A/G ratio Ratio 0.8 2.0 0.8 FINAL Mary Palanisa my Plasma [facility] . [address] [place] [address]. [id number]. [place] [address] CLIA#45D [id number] 07/07 CMP Bilir ubin, total mg/dL 0.2 1.0 0.5 FINAL Mary Palanisa [facility] . [address] [place], [place] [address] [facility]. [id number]. [place] [address] CLIA#45D [id number] 07/07 CMP Alkal ine phosp hatas e U/L 46.0 116.0 83 FINAL Mary Palanisa [facility] . [address] [place] [address] [facility]. [id number]. [place] [id number] CLIA#45D [id number] 07/07 CMP AST/S GOT U/L 15.0 37.0 22 FINAL Mary Palanisa [facility] Plasma [facility] . [address] [place] [address] [facility]. [id number]. [place] [id number] CLIA#45D [id number] 07/07 CMP ALT/S GPT U/L 14.0 59.0 24 FINAL Mary Palanisa my Plasma [facility] . [address] [place] [address]. [id number]. [place] [address] CLIA#45D [id number] 07/07 Juliet tin panel Juliet tin ng/mL 8.0 252.0 738 High FINAL Mary Palanisa my Serum [facility] . [address] [place] [address]. [id number]. [place] [address] CLIA#45D [id number] 07/07 TIBC and perce nt sat w/ iron panel Iron ug/dL 50.0 170.0 75.00 FINAL Mary Palanisa my Serum [facility] . [address] [place] [address]. [id number]. [place] [address] CLIA#45D [id number] 07/07 TIBC and perce nt sat w/ iron panel TIBC ug/dL 250.0 450.0 272.00 FINAL Mary Palanisa my Serum [facility] . [address] [place] [address]. [id number]. [place] [address] CLIA#45D [id number] 07/07 TIBC and perce nt sat w/ iron panel Iron, % satur ation % 20.0 55.0 27.6 FINAL Mary Palanisa [facility] . [address] [place] [address]. [id number]. [place] [address] CLIA#45D [id number] 07/07 CBC w/aut o diff with refle x WBC 10^3/u l 4.8 10.8 5.5 FINAL Mary Palanisa my Whole Blood [facility] . [address] [place] [address]. [id number]. [place] [address] CLIA#45D [id number] 07/07 CBC w/aut o diff with refle x RBC 10^6/u l 4.2 5.4 3.76 Low FINAL Mary Palanisa my Whole Blood [facility] . [address] [place] [address]. [id number]. [place] [address] CLIA#45D [id number] 07/07 CBC w/aut o diff with refle x HGB g/dl 12.0 16.0 11.3 Low FINAL Mary Palanisa my Whole Blood [facility] . [facility]. [id number]. [place] [address] CLIA#45D [id number] 07/07 CBC w/aut o diff with refle x HCT % 37.0 47.0 35.5 Low FINAL Mary Palanisa my Whole Blood [facility] . [address] [place] [address]. [id number]. [place] [address] CLIA#45D [id number] 07/07 CBC w/aut o diff with refle x MCV fl 81.0 99.0 94.4 FINAL Mary Palanisa my Whole Blood [facility] . [address] [place] [address]. [id number]. [place] [address] CLIA#45D [id number] 07/07 CBC w/aut o diff with refle x MCH pg 27.0 31.0 30.1 FINAL Mary Palanisa my Whole Blood [facility] . [address] [place] [address]. [id number]. [place] [address] CLIA#45D [id number] 07/07 CBC w/aut o diff with refle x MCHC g/dl 33.0 37.0 31.8 Low FINAL Mary Palanisa my Whole Blood [facility] . [address] [place] [address]. [id number]. [place] [address] CLIA#45D [id number] 07/07 CBC w/aut o diff with refle x RDW % 10.5 14.5 13.2 FINAL Mary Palanisa my Whole Blood [facility] . [address] [place] [address]. [id number]. [place] [address] CLIA#45D [id number] 07/07 CBC w/aut o diff with refle x PLT 10^3/u l 130.0 400.0 277 FINAL Mary Palanisa my Whole Blood [facility] . [address] [place] [address] [facility]. [id number]. [place] [address] CLIA#45D [id number] 07/07 CBC w/aut o diff with refle x MPV fl 9.4 12.3 10.3 FINAL Mary Palanisa my Whole [facility] . [address] [place] [address]. [id number]. [place] [address] CLIA#45D [id number] 07/07 CBC w/aut o diff with refle x Jordy % % 40.0 77.0 44.9 FINAL Mary Palanisa my Whole Blood [facility] . [address] [place] [address]. [id number]. [place] [address] CLIA#45D [id number] 07/07 CBC w/aut o diff with refle x Jordy # (ANC) 10^3/u l 1.5 6.5 2.5 FINAL Mary Palanisa my Whole [facility] . [address] [place] [address]. [id number]. [place] [address] CLIA#45D [id number] 07/07 CBC w/aut o diff with refle x LY % % 15.0 41.0 29.0 FINAL Mary Palanisa my Whole Blood [facility] . [address] [place] [address]. [id number]. [place] [address] CLIA#45D [id number] 07/07 CBC w/aut o diff with refle x LY # 10^3/u l 1.2 3.4 1.6 FINAL Mary Palanisa my Whole Blood [facility] . [address] [place] [address]. [id number]. [place] [address] CLIA#45D [id number] 07/07 CBC w/aut o diff with refle x MO % % 3.0 11.0 11.6 High FINAL Mary Palanisa my Whole Blood [facility] . [address] [place] [address]. [id number]. [place] [address] CLIA#45D [id number] 07/07 CBC w/aut o diff with refle x MO # 10^3/u l 0.0 1.0 0.6 FINAL Mary Palanisa my Whole Blood [facility] . [address] [place] [address]. [id number]. [place] [address] CLIA#45D [id number] 07/07 CBC w/aut o diff with refle x EO % % 0.0 3.0 12.5 High FINAL Mary Palanisa my Whole Blood [facility] . [address] [place] [address]. [id number]. [place] [id number] CLIA#45D [id number] 07/07 CBC w/aut o diff with refle x EO # 10^3/u L 0.0 0.3 0.7 High FINAL Mary Palanisa my Whole Blood [facility] . [address] [place] [address]. [id number]. [place] [address] CLIA#45D [id number] 07/07 CBC w/aut o diff with refle x BA % % 0.0 1.0 0.9 FINAL Mary Palanisa my Whole Blood [facility] . [address] [place] [address]. [id number]. [place] [address] CLIA#45D [id number] 07/07 CBC w/aut o diff with refle x BA # 10^3/u L 0.0 0.2 0.1 FINAL Mary Palanisa my Whole Blood [facility] . [address] [place] [address]. [id number]. [place] [id number] CLIA#45D [id number] 07/07 CBC w/aut o diff with refle x IG % % 0.0 0.5 1.10 High FINAL Mary Palanisa my Whole Blood [facility] . [address] [place] [address]. [id number]. [place] [address] CLIA#45D [id number] 07/07 CBC w/aut o diff with refle x IG # 10^3/u L 0.0 0.03 0.06 High FINAL Mary Palanisa my Whole Blood [facility] . [address] [place] [address]. [id number]. [place] [address] CLIA#45D [id number] 07/07 CBC w/aut o diff with refle x NRBC, % % 0.0 0.2 0.0 FINAL Mary Palanisa my Whole Blood [facility] . [address] [place] [address]. [id number]. [facility] [address] CLIA#45D [id number] 07/07 CBC w/aut o diff with refle x NRBC, absol jose, x 10^3/ uL 10^3/u L 0.0 0.012 0.000 FINAL Mary Palanisa my Whole Blood [facility] [place] . [address]. [id number]. [place] [id number] CLIA#45D [id number] 07/07 [place] /rodriguez da with K/L ratio , free, serum (mg/d L) [place] light chain , free mg/L 3.3 19.4 45.9 High FINAL [facility] [place] [address] [address] 12[place] [address] 07/07 [place] /rodriguez da with K/L ratio , free, serum (mg/d L) Lamb[place] a light chain , free mg/L 5.7 26.3 26.5 High FINAL [facility] [place] [address] [place] 12[place] [address] 07/07 [place] /rodriguez da with K/L ratio , free, [...] FINAL Mary [facility] [place] [address] [address] 12[place] [address] 10/27 CMP Sodiu m mmol/L 136.0 145.0 140 FINAL Mary Palanisa my Plasma [facility] . [address] [place] [address] [facility]. [id number]. [place] [id number] CLIA#45D [id number] 10/27 CMP Potas sium mmol/L 3.5 5.1 4.7 FINAL Mary Palanisa my Plasma [facility] . [address] [place], [place] [address] [facility]. [id number]. [place] [id number] CLIA#45D [id number] 10/27 CMP Chlor loly mmol/L 97.0 107.0 103 FINAL Mary Palanisa my Plasma [facility] . [address] [place] [address] [facility]. [id number]. [place] [id number] CLIA#45D [id number] 10/27 CMP CO2 mmol/L 21.0 32.0 25 FINAL Mary Palanisa my Plasma [facility] . [address] [place], [place] [address] [facility]. [id number]. [place] [id number] CLIA#45D [id number] 10/27 CMP Gluco se mg/dL 74.0 106.0 88 FINAL Mary Palanisa my Plasma [facility] . [address] [place] [address] [facility]. [id number]. [facility] [address] CLIA#45D [id number] 10/27 CMP BUN mg/dL 7.0 18.0 26 High FINAL Mary Palanisa my Plasma [facility] . [address] [place], [place] [address] [facility]. [id number]. [place] [id number] CLIA#45D [id number] 10/27 CMP Creat inine , mg/dL mg/dL 0.55 1.3 1.08 FINAL Mary Palanisa my Plasma [facility] . [address] [place] [address] [facility]. [id number]. [place] [id number] CLIA#45D [id number] 10/27 CMP GFR estim ate ml/min /1.73m 2 53 Low Result based on the eGFR 2020 calculati on.60-89 mL/min/1. 73m^2 without kidney damage may be normal.60 -89 mL/min/1. 73m^2 for 3 months or more, along with kidney damage, may indicate early kidney disease.C alculatio n modified to the 2020 formula effective 01/16/23. FINAL Mary Palanisa my Plasma [facility] . [address] [place] [address]. [id number]. [place] [address] CLIA#45D [id number] 10/27 CMP BUN/C reati nine ratio Ratio 6.0 25.0 24.1 FINAL Mary Palanisa my Plasma [facility] . [address] [place] [address]. [id number]. [place] [address] CLIA#45D [id number] 10/27 CMP Calci um mg/dL 8.5 10.1 8.8 FINAL Mary Palanisa my Plasma [facility] . [address] [place] [address]. [id number]. [place] [address] CLIA#45D [id number] 10/27 CMP Total prote in g/dL 6.4 8.2 6.8 FINAL Mary Palanisa my Plasma [facility] . [address] [place] [address]. [id number]. [place] [address] CLIA#45D [id number] 10/27 CMP Album in g/dL 3.4 5.0 2.7 Low FINAL Mary Palanisa my Plasma [facility] . [address] [place] [address]. [id number]. [place] [address] CLIA#45D [id number] 10/27 CMP A/G ratio Ratio 0.8 2.0 0.7 Low FINAL Mary Palanisa my Plasma [facility] . [address] [place] [address]. [id number]. [place] [address] CLIA#45D [id number] 10/27 CMP Bilir ubin, total mg/dL 0.2 1.0 0.3 FINAL Mary Palanisa my Plasma [facility] . [address] [place] [address] [facility]. [id number]. [place] [address] CLIA#45D [id number] 10/27 CMP Alkal ine phosp hatas e U/L 46.0 116.0 89 FINAL Mary Palanisa my Plasma [facility] . [address]. [id number]. [place] [address] CLIA#45D [id number] 10/27 CMP AST/S GOT U/L 15.0 37.0 18 FINAL Mary Palanisa my Plasma [facility] . [address] [place] [address]. [id number]. [place] [address] CLIA#45D [id number] 10/27 CMP ALT/S GPT U/L 14.0 59.0 19 FINAL Mary Palanisa my Plasma [facility] . [address] [place] [address]. [id number]. [place] [address] CLIA#45D [id number] 10/27 CBC w/aut o diff with refle x WBC 10^3/u l 4.8 10.8 9.7 FINAL Mary Palanisa my Whole Blood [facility] . [address] [place] [address]. [id number]. [place] [address] CLIA#45D [id number] 10/27 CBC w/aut o diff with refle x RBC 10^6/u l 4.2 5.4 3.48 Low FINAL Mary Palanisa my Whole Blood [facility] . [address] [place] [address]. [id number]. [place] [address] CLIA#45D [id number] 10/27 CBC w/aut o diff with refle x HGB g/dl 12.0 16.0 10.0 Low FINAL Mary Palanisa my Whole Blood [facility] . [address] [place] [address]. [id number]. [place] [address] CLIA#45D [id number] 10/27 CBC w/aut o diff with refle x HCT % 37.0 47.0 32.4 Low FINAL Mary Palanisa my Whole Blood [facility] . [address] [place] [address]. [id number]. [place] [address] CLIA#45D [id number] 10/27 CBC w/aut o diff with refle x MCV fl 81.0 99.0 93.1 FINAL Mary Palanisa my Whole Blood [facility] . [address] [place], [place] [address] [facility]. [id number]. [place] [address] CLIA#45D [id number] 10/27 CBC w/aut o diff with refle x MCH pg 27.0 31.0 28.7 FINAL Mary Palanisa my Whole Blood [facility] . [address] [place] [address]. [id number]. [place] [address] CLIA#45D [id number] 10/27 CBC w/aut o diff with refle x MCHC g/dl 33.0 37.0 30.9 Low FINAL Mary Palanisa my Whole Blood [facility] . [address] [place] [address]. [id number]. [place] [address] CLIA#45D [id number] 10/27 CBC w/aut o diff with refle x RDW % 10.5 14.5 15.3 High FINAL Mary Palanisa my Whole Blood [facility] . [address] [place] [address]. [id number]. [place] [address] CLIA#45D [id number] 10/27 CBC w/aut o diff with refle x PLT 10^3/u l 130.0 400.0 446 High FINAL Mary Palanisa my Whole Blood [facility] . [address] [place] [address]. [id number]. [place] [address] CLIA#45D [id number] 10/27 CBC w/aut o diff with refle x MPV fl 9.4 12.3 10.2 FINAL Mary Palanisa my Whole Blood [facility] . [address] [place] [address]. [id number]. [place] [address] CLIA#45D [id number] 10/27 CBC w/aut o diff with refle x Jordy % % 40.0 77.0 64.4 FINAL Mary Palanisa my Whole Blood [facility] . [address] [place], [place] [address] [facility]. [id number]. [place] [address] CLIA#45D [id number] 10/27 CBC w/aut o diff with refle x Jordy # (ANC) 10^3/u l 1.5 6.5 6.2 FINAL Mary Palanisa my Whole Blood [facility] . [address] [place] [address]. [id number]. [place] [address] CLIA#45D [id number] 10/27 CBC w/aut o diff with refle x LY % % 15.0 41.0 14.6 Low FINAL Mary Palanisa my Whole Blood [facility] . [address] [place] [address]. [id number]. [place] [address] CLIA#45D [id number] 10/27 CBC w/aut o diff with refle x LY # 10^3/u l 1.2 3.4 1.4 FINAL Mary Palanisa my Whole Blood [facility] . [address] [place] [address]. [id number]. [place] [address] CLIA#45D [id number] 10/27 CBC w/aut o diff with refle x MO % % 3.0 11.0 10.7 FINAL Mary Palanisa my Whole Blood [facility] . [address] [place] [address]. [id number]. [place] [address] CLIA#45D [id number] 10/27 CBC w/aut o diff with refle x MO # 10^3/u l 0.0 1.0 1.0 FINAL Mary Palanisa my Whole Blood [facility] . [address] [place] [address]. [id number]. [place] [address] CLIA#45D [id number] 10/27 CBC w/aut o diff with refle x EO % % 0.0 3.0 7.1 High FINAL Mary Palanisa my Whole Blood [facility] . [address] [place] [address]. [id number]. [place] [address] CLIA#45D [id number] 10/27 CBC w/aut o diff with refle x EO # 10^3/u L 0.0 0.3 0.7 High FINAL Mary Palanisa my Whole Blood [facility] . [address] [place] [address]. [id number]. [place] [address] CLIA#45D [id number] 10/27 CBC w/aut o diff with refle x BA % % 0.0 1.0 1.1 High FINAL Mary Palanisa my Whole Blood [facility] . [address] [place], [place] [address] [facility]. [id number]. [place] [address] CLIA#45D [id number] 10/27 CBC w/aut o diff with refle x BA # 10^3/u L 0.0 0.2 0.1 FINAL Mary Palanisa my Whole Blood [facility] . [address] [place] [address]. [id number]. [place] [address] CLIA#45D [id number] 10/27 CBC w/aut o diff with refle x IG % % 0.0 0.5 2.10 High FINAL Mary Palanisa my Whole Blood [facility] . [address] [place] [address]. [id number]. [place] [address] CLIA#45D [id number] 10/27 CBC w/aut o diff with refle x IG # 10^3/u L 0.0 0.03 0.20 High FINAL Mary Palanisa my Whole Blood [facility] . [address] [place] [address]. [id number]. [place] [address] CLIA#45D [id number] 10/27 CBC w/aut o diff with refle x NRBC, % % 0.0 0.2 0.0 FINAL Mary Palanisa my Whole Blood [facility] . [address] [place] [address]. [id number]. [place] [address] CLIA#45D [id number] 10/27 CBC w/aut o diff with refle x NRBC, absol jose, x 10^3/ uL 10^3/u L 0.0 0.012 0.000 FINAL Mary Palanisa my Whole Blood [facility] . [address] [place], [place] [address] [facility]. [id number]. [place] [address] CLIA#45D [id number] 10/27 Juliet tin panel Juliet tin ng/mL 8.0 252.0 953 High FINAL Mary Palanisa my Serum [facility] . [address] [place] [address] [facility]. [id number]. [place] [address] CLIA#45D [id number] 10/27 TIBC and perce nt sat w/ iron panel Iron ug/dL 50.0 170.0 24.00 Low FINAL Mary Palanisa my Serum [facility] . [address] [place] [address]. [id number]. [place] [address] CLIA#45D [id number] 10/27 TIBC and perce nt sat w/ iron panel TIBC ug/dL 250.0 450.0 202.00 Low FINAL Mary Palanisa my Serum [facility] . [address] [place] [address]. [id number]. [place] [id number] CLIA#45D [id number] 10/27 TIBC and perce nt sat w/ iron panel Iron, % satur ation % 20.0 55.0 11.9 Low FINAL Mary Palanisa my Serum [facility] . [address] [place] [address]. [id number]. [place] [id number] CLIA#45D [id number] 04/26 SPEP with immun ofixa tion Total prote in g/dL 6.1 8.1 7.1 FINAL Mary Pal[facility] [place] [address] [address] [address] 04/26 SPEP with immun ofixa tion NOHEMI inter preta tion Results Below Normal pattern. No monoclona l proteins detected. FINAL [facility] [place] [address] [address] [address] 04/26 SPEP with immun ofixa tion Album in, SPE g/dL 3.8 4.8 3.6 Low FINAL [facility] [place] [address] [place] 12[place] [address] 04/26 SPEP with immun ofixa tion Alpha -1 globu ashley g/dL 0.2 0.3 0.3 FINAL [facility] [place] [address] [place] 12[place] [address] 04/26 SPEP with immun ofixa tion Alpha -2 globu ashley g/dL 0.5 0.9 0.8 FINAL Mary [facility] [place] [address] [place] [address] [address] 04/26 SPEP with immun ofixa tion Beta- 1 g/dL 0.4 0.6 0.5 FINAL Mary [facility] [address] [address] [address] [address] 04/26 SPEP with immun ofixa tion Beta- 2 g/dL 0.2 0.5 0.4 FINAL Mary [facility] [address] [address] [address] [address] 04/26 SPEP with immun ofixa tion Gamma globu ashley g/dL 0.8 1.7 1.5 FINAL Mary [facility] [address] [address] [address] [address] 04/26 SPEP with immun ofixa tion SPE inter preta tion Results Below Abnormal appearing globulin peak, possibly monoclona l. If indicated , recommend immunotyp ing (Test Code: [id number]) for further evaluatio n. If the SPEP wasordere d with reflex, immunotyp ing will be resulted upon completio n. FINAL Mary Palanisa my [facility] [address] [address].[place] [address] 04/26 Juliet tin panel Juliet tin ng/mL 8.0 252.0 266 High FINAL Mary Palanisa my Serum [facility].52 [address] [facility] [address] [place] [address] CLIA#45D [id number] 04/26 TIBC and perce nt sat w/ iron panel Iron ug/dL 65.0 175.0 30.0 Low FINAL Mary Palanisa my Serum [facility].52 [address] [facility] [address] [place] [address] CLIA#45D [id number] 04/26 TIBC and perce nt sat w/ iron panel TIBC ug/dL 250.0 450.0 283.0 FINAL Mary Palanisa my Serum [facility].52 [address] [facility] [address] [place] [address] [address] CLIA#45D [id number] 04/26 TIBC and perce nt sat w/ iron panel Iron, % satur ation % 15.0 50.0 11 Low FINAL Mary Palanisa my Serum [facility].52 [address] [facility] [address] [place] [address] CLIA#45D [id number] 04/26 CMP Sodiu m mmol/L 136.0 145.0 140 FINAL Mary Palanisa my Plasma [facility] [address] [facility] [address] [place] [address] CLIA#45D [id number] 04/26 CMP Potas sium mmol/L 3.5 5.1 4.9 FINAL Mary Palanisa my Plasma [facility].52 [address] [facility] [address] [place] [address] CLIA#45D [id number] 04/26 CMP Chlor loly mmol/L 97.0 107.0 104 FINAL Mary Palanisa my Plasma [facility].52 [address] [facility] it e [address] [place] [address] CLIA#45D [id number] 04/26 CMP CO2 mmol/L 21.0 32.0 26.0 FINAL Mary Palanisa my Plasma [facility].52 [address] [facility] [address] [place] [address] CLIA#45D [id number] 04/26 CMP Gluco se mg/dL 74.0 106.0 120 High FINAL Mary Palanisa my Plasma [facility].52 [address] [facility] [address] [place] [address] CLIA#45D [id number] 04/26 CMP BUN mg/dL 7.0 18.0 37 High FINAL Mary Palanisa my Plasma [facility].52 [address] [facility] it [address] [place] [address] CLIA#45D [id number] 04/26 CMP Creat inine , mg/dL mg/dL 0.55 1.3 1.42 High FINAL Mary Palanisa my Plasma [facility].52 [address] [facility] [address] [place] [address] CLIA#45D [id number] 04/26 CMP GFR estim ate mil/mi n/1.73 m2 38 Low Result based on the eGFR 2020 calculati on.60-89 mL/min/1. 73m^2 without kidney damage may be normal.60 -89 mL/min/1. 73m^2 for 3 months or more, along with kidney damage, may indicate early kidney disease.C alculatio n modified to the 2020 formula effective 01/16/23. FINAL Mary Palanisa my Plasma [facility].52 [address] [facility] [address] [place] [address] CLIA#45D [id number] 04/26 CMP BUN/C reati nine ratio 6.0 25.0 26.1 High FINAL Mary Palanisa my Plasma [facility].52 [address] [facility] [address] [place] [address] CLIA#45D [id number] 04/26 CMP Album in g/dL 3.4 5.0 3.2 Low FINAL Mray Palanisa my Plasma [facility].52 [address] [facility] [address] [place] [address] CLIA#45D [id number] 04/26 CMP Calci um mg/dL 8.5 10.1 9.1 FINAL Mary Palanisa my Plasma [facility].52 [address] [facility] [address] [place] [address] CLIA#45D [id number] 04/26 CMP Total prote in g/dL 6.4 8.2 7.8 FINAL Mary Palanisa my Plasma [facility].52 [address] [facility] [address] [place] [address] CLIA#45D [id number] 04/26 CMP Globu ashley g/dL 2.2 4.2 4.6 High FINAL Mary Palanisa my Plasma [facility].52 [address] [facility] [address] [place] [address] CLIA#45D [id number] 04/26 CMP A/G ratio 0.8 2.0 0.7 Low FINAL Mary Palanisa my Plasma [facility].52 [address] [facility] [address] [place] [address] CLIA#45D [id number] 04/26 CMP Bilir ubin, total mg/dL 0.2 1.0 0.5 FINAL Mary Palanisa my Plasma [facility].52 [address] [facility] [address] [place] [address] CLIA#45D [id number] 04/26 CMP Alkal ine phosp hatas e U/L 46.0 116.0 93 FINAL Mary Palanisa my Plasma [facility].52 [address] [facility] [address] [place] [address] CLIA#45D [id number] 04/26 CMP AST/S GOT U/L 15.0 37.0 17 FINAL Mary Palanisa my Plasma [facility].52 [address] [facility] [address] [place] [address] CLIA#45D [id number] 04/26 CMP ALT/S GPT U/L 14.0 59.0 26 FINAL Mary Palanisa my Plasma [facility].52 [address] [facility] [address] [place] [address] CLIA#45D [id number] 04/26 CBC w/aut o diff with refle x WBC 10^3/u L 4.8 10.8 6.4 FINAL Mary Palanisa my Whole Blood [facility].52 [address] [facility] [address] [place] [address] CLIA#45D [id number] 04/26 CBC w/aut o diff with refle x RBC 10^6/u L 4.2 5.4 4.06 Low FINAL Mary Palanisa my Whole Blood [facility].52 [address] [facility] [address] [place] [address] CLIA#45D [id number] 04/26 CBC w/aut o diff with refle x HGB g/dL 12.0 16.0 11.1 Low FINAL Mary Palanisa my Whole Blood [facility].52 [address] [facility] [address] [place] [address] CLIA#45D [id number] 04/26 CBC w/aut o diff with refle x HCT % 37.0 47.0 37.0 FINAL Mary Palanisa my Whole Blood [facility].52 [address] [facility] [address] [place] [address] CLIA#45D [id number] 04/26 CBC w/aut o diff with refle x MCV fL 81.0 99.0 91.1 FINAL Mary Palanisa my Whole Blood [facility].52 [address] [facility] [address] [place] [address] CLIA#45D [id number] 04/26 CBC w/aut o diff with refle x MCH pg 27.0 31.0 27.3 FINAL Mary Palanisa my Whole Blood [facility].52 [address] [facility] [address] [place] [address] CLIA#45D [id number] 04/26 CBC w/aut o diff with refle x MCHC g/dL 33.0 37.0 30.0 Low FINAL Mary Palanisa my Whole Blood [facility].52 [address] [facility] [address] [place] [address] CLIA#45D [id number] 04/26 CBC w/aut o diff with refle x PLT 10^3/u L 130.0 400.0 256 FINAL Mary Palanisa my Whole Blood [facility].52 [address] [facility] [address] [place] [address] CLIA#45D [id number] 04/26 CBC w/aut o diff with refle x MPV fL 9.4 12.3 10.7 FINAL Mary Palanisa my Whole Blood [facility].52 [address] [facility] [address] [place] [address] CLIA#45D [id number] 04/26 CBC w/aut o diff with refle x RDW % 10.5 14.5 15.9 High FINAL Mary Palanisa my Whole Blood [facility].52 [address] [facility] ty e [address] [place] [address] CLIA#45D [id number] 04/26 CBC w/aut o diff with refle x Jordy % % 40.0 77.0 56.0 FINAL Mary Palanisa my Whole Blood [facility].52 [address] [facility] [address] [place] [address] CLIA#45D [id number] 04/26 CBC w/aut o diff with refle x Jordy # (ANC) 10^3/u L 1.5 6.5 3.57 FINAL Mary Palanisa my Whole Blood [facility].52 [address] [facility] [address] [place] [address] CLIA#45D [id number] 04/26 CBC w/aut o diff with refle x IG % % 0.0 0.5 0.3 FINAL Mary Palanisa my Whole Blood [facility].52 [address] [facility] [address] [place] [address] CLIA#45D [id number] 04/26 CBC w/aut o diff with refle x IG # 10^3/u L 0.0 0.03 0.02 FINAL Mary Palanisa my Whole Blood [facility].52 [address] [facility] [address] [place] [address] CLIA#45D [id number] 04/26 CBC w/aut o diff with refle x LY % % 15.0 41.0 19.6 FINAL Mary Palanisa my Whole Blood [facility].52 [address] [facility] ty e [address] [place] [address] CLIA#45D [id number] 04/26 CBC w/aut o diff with refle x LY # 10^3/u L 1.2 3.4 1.25 FINAL Mary Palanisa my Whole Blood [facility].52 [address] [facility] [address] [place] [address] CLIA#45D [id number] 04/26 CBC w/aut o diff with refle x MO % % 3.0 11.0 9.7 FINAL Mary Palanisa my Whole Blood [facility].52 [address] [facility] [address] [place] [address] CLIA#45D [id number] 04/26 CBC w/aut o diff with refle x MO # 10^3/u L 0.0 1.0 0.62 FINAL Mary Palanisa my Whole Blood [facility].52 [address] [facility] [address] [place] [address] CLIA#45D [id number] 04/26 CBC w/aut o diff with refle x EO % % 0.0 3.0 13.0 High FINAL Mary Palanisa my Whole Blood [facility].52 [address] [facility] [address] [place] [address] [address] CLIA#45D [id number] 04/26 CBC w/aut o diff with refle x EO # 10^3/u L 0.0 0.3 0.83 High FINAL Mary Palanisa my Whole Blood [facility].52 [address] [facility] [address] [place] [address] CLIA#45D [id number] 04/26 CBC w/aut o diff with refle x BA % % 0.0 1.0 1.4 High FINAL Mary Palanisa my Whole Blood [facility].52 [address] [facility] [address] [place] [address] CLIA#45D [id number] 04/26 CBC w/aut o diff with refle x BA # 10^3/u L 0.0 0.2 0.09 FINAL Mary Palanisa my Whole Blood [facility].52 [address] [facility] [address] [place] [address] CLIA#45D [id number] 04/26 CBC w/aut o diff with refle x NRBC, % % 0.0 0.2 0.0 FINAL Mary Palanisa my Whole Blood [facility].52 [address] [facility] [address] [place] [address] CLIA#45D [id number] 04/26 CBC w/aut o diff with refle x NRBC, absol jose, x 10^3/ uL 10^3/u L 0.0 0.01 0.00 FINAL Mary Palanisa my Whole Blood [facility].52 [address] [facility] [address] [place] [address] CLIA#45D [id number] 04/26 [place]onier /rodriguez da with K/L ratio , free, serum (mg/d L) [place] light chain , free mg/L 3.3 19.4 86.9 High FINAL Mary Palanisa my [facility]2 [address] [address] [address] [address] 04/26 [place]onier /rodriguez da with K/L ratio , free, serum (mg/d L) Lambd a light chain , free mg/L 5.7 26.3 37.3 High FINAL Mary Palanisa my [facility]2 [address] [address] [address] [address] 04/26 [place]onier /rodriguez da with K/L ratio , free, [...] Mary Rudolph my [facility].2 [address] [address] [address] [address] 11/07 CMP Chlor loly mmol/L 97.0 107.0 106 FINAL [facility].52 [address] [facility] [address] [place] [address] CLIA#45D [id number] 11/07 CMP CO2 mmol/L 21.0 32.0 28.0 FINAL [facility].52 [address] [facility] [address] [place] [address] CLIA#45D [id number] 11/07 CMP Gluco se mg/dL 74.0 106.0 74 FINAL [facility].52 [address] [facility] [address] [place] [address] CLIA#45D [id number] 11/07 CMP BUN mg/dL 7.0 18.0 35 High FINAL [facility].52 [address] [facility] [address] [place] [address] CLIA#45D [id number] 11/07 CMP Creat inine , mg/dL mg/dL 0.55 1.3 1.41 High FINAL [facility].52 [address] [facility] [address] [place] [address] CLIA#45D [id number] 11/07 CMP GFR estim ate mil/mi n/1.73 m2 38 Low Result based on the eGFR 2020 calculati on.60-89 mL/min/1. 73m^2 without kidney damage may be normal.60 -89 mL/min/1. 73m^2 for 3 months or more, along with kidney damage, may indicate early kidney disease.C alculatio n modified to the 2020 formula effective 01/16/23. FINAL [facility].52 [address] [facility] [address] [place] [address] CLIA#45D [id number] 11/07 CMP BUN/C reati nine ratio 6.0 25.0 24.8 FINAL [facility].52 [address] [facility] [address] [place] [address] CLIA#45D [id number] 11/07 CMP Calci um mg/dL 8.5 10.1 9.7 FINAL [facility].52 [address] [facility] [address] [place] [address] CLIA#45D [id number] 11/07 CMP Album in g/dL 3.4 5.0 3.1 Low FINAL [facility].52 [address] [facility] [address] [place] [address] CLIA#45D [id number] 11/07 CMP Total prote in g/dL 6.4 8.2 7.3 FINAL [facility].52 [address] [facility] [address] [place] [address] CLIA#45D [id number] 11/07 CMP Globu ashley g/dL 2.2 4.2 4.2 FINAL [facility].52 [address] [facility] [address] [place] [address] CLIA#45D [id number] 11/07 CMP A/G ratio 0.8 2.0 0.7 Low FINAL [facility].52 [address] [facility] [address] [place] [address] CLIA#45D [id number] 11/07 CMP Bilir ubin, total mg/dL 0.2 1.0 0.6 FINAL [facility].52 [address] [facility] [address] [place] [address] CLIA#45D [id number] 11/07 CMP Alkal ine phosp hatas e U/L 46.0 116.0 100 FINAL [facility].52 [address] [facility] [address] [place] [address] CLIA#45D [id number] 11/07 CMP AST/S GOT U/L 15.0 37.0 26 FINAL [facility].52 [address] [facility] [address] [place] [address] CLIA#45D [id number] 11/07 CMP ALT/S GPT U/L 14.0 59.0 27 FINAL [facility].52 [address] [facility] [address] [place] [address] CLIA#45D [id number] 11/07 CMP Sodiu m mmol/L 136.0 145.0 143 FINAL [facility].52 [address] [facility] [address] [place] [address] CLIA#45D [id number] 11/07 CMP Potas sium mmol/L 3.5 5.1 4.3 FINAL [facility].52 [address] [facility] [address] [place] [address] CLIA#45D [id number] 11/07 TIBC and perce nt sat w/ iron panel Iron ug/dL 50.0 170.0 60.0 FINAL [facility].52 [address] [facility] [address] [place] [address] CLIA#45D [id number] 11/07 TIBC and perce nt sat w/ iron panel TIBC ug/dL 250.0 450.0 311.0 FINAL [facility].52 [address] [facility] [address] [place] [address] CLIA#45D [id number] 11/07 TIBC and perce nt sat w/ iron panel Iron, % satur ation % 15.0 50.0 19 FINAL [facility].52 [address] [facility] [address] [place] [address] CLIA#45D [id number] 11/07 Juliet tin panel Juliet tin ng/mL 8.0 252.0 228 FINAL Tayler Jacobs Serum [facility].52 [address] [facility] [address] [place] [address] CLIA#45D [id number] 11/07 SPEP with immun ofixa tion Total prote in g/dL 6.1 8.1 6.4 FINAL [facility].[address] [place] [address] [address] [address] 11/07 SPEP with immun ofixa tion NOHEMI inter preta tion Results Below Normal pattern. No monoclona l proteins detected. FINAL Luis Brown [facility].[address] [place] [address] [address].[place] [address] 11/07 SPEP with immun ofixa tion Album in, SPE g/dL 3.8 4.8 3.4 Low FINAL [facility].[address] [place] [address] [address] [address] 11/07 SPEP with immun ofixa tion Alpha -1 globu ashley g/dL 0.2 0.3 0.3 [facility] [place] [address] [address].[place] [address] 11/07 SPEP with immun ofixa tion Alpha -2 globu ashley g/dL 0.5 0.9 0.7 FINAL [facility] [place] [address] [address].[place] [address] 11/07 SPEP with immun ofixa tion Beta- 1 g/dL 0.4 0.6 0.4 FINAL [facility] [place] [address] [address] 12.[place] [address] 11/07 SPEP with immun ofixa tion Beta- 2 g/dL 0.2 0.5 0.4 FINAL [facility] [place] [address] [address] 12[place] [address] 11/07 SPEP with immun ofixa tion Gamma globu ashley g/dL 0.8 1.7 1.1 FINAL [facility] [place] [address] [address] 12.[place] [address] 11/07 SPEP with immun ofixa tion SPE inter preta tion Results Below Abnormal appearing gamma globulin peak, possibly monoclona l. If indicated ,recommen d immunotyp ing (Test Code: [id number]) for further evaluatio n. If the SPEPwas ordered with reflex, immunotyp ing will be resulted upon completio n. FINAL [facility].[address] [place] [address] [address] [address] 11/07 Ligonier /rodriguez da with K/L ratio , free, serum (mg/d L) [place] light chain , free mg/L 3.3 19.4 73.5 High FINAL [facility] [place] [address] [address].[place] [address] 11/07 [place]onier /rodriguez da with K/L ratio , free, serum (mg/d L) Lambd a light chain , free mg/L 5.7 26.3 35.8 High FINAL [facility].[address] [place] [address] [address].[place] [address] 11/07 Ligonier /rodriguez da with K/L ratio , free, [...] therapy of these disorders . FINAL [facility].[address] [place] [address] [address].[place] [address] 11/07 CBC w/aut o diff with refle x WBC 10^3/u L 4.8 10.8 4.6 Low FINAL Luis Tucker Whole Blood [facility].[address] [place] [address] CLIA#45D [id number] 11/07 CBC w/aut o diff with refle x RBC 10^6/u L 4.2 5.4 4.23 FINAL Luis Tucker Whole Blood [facility].52 [address] [place] [address] CLIA#45D [id number] 11/07 CBC w/aut o diff with refle x HGB g/dL 12.0 16.0 12.4 FINAL Luis Tucker Whole Blood [facility].52 [address] [place] [address] CLIA#45D [id number] 11/07 CBC w/aut o diff with refle x HCT % 37.0 47.0 40.8 FINAL Luis Tucker Whole Blood [facility].52 [address] [place] [address] CLIA#45D [id number] 11/07 CBC w/aut o diff with refle x MCV fL 81.0 99.0 96.5 FINAL Luis uTcker Whole Blood [facility].52 [address] [place] [address] CLIA#45D [id number] 11/07 CBC w/aut o diff with refle x MCH pg 27.0 31.0 29.3 FINAL Luis Tucker Whole Blood [facility].[address] [place] [address] CLIA#45D [id number] 11/07 CBC w/aut o diff with refle x MCHC g/dL 33.0 37.0 30.4 Low FINAL Luis Tucker Whole [facility].52 [address] [place] [address] CLIA#45D [id number] 11/07 CBC w/aut o diff with refle x PLT 10^3/u L 130.0 400.0 216 FINAL Luis Tucker Whole Blood [facility].52 [address] [place] [address] CLIA#45D [id number] 11/07 CBC w/aut o diff with refle x MPV fL 9.4 12.3 10.3 FINAL Luis Tucker Whole Blood [facility].[address] [place] [address] CLIA#45D [id number] 11/07 CBC w/aut o diff with refle x RDW % 10.5 14.5 14.0 FINAL Luis Tucker Whole [facility].[address] [place] [address] CLIA#45D [id number] 11/07 CBC w/aut o diff with refle x Jordy % % 40.0 77.0 59.7 FINAL [facility] Whole Blood [facility].[address] [place] [address] CLIA#45D [id number] 11/07 CBC w/aut o diff with refle x Jordy # (ANC) 10^3/u L 1.5 6.5 2.73 FINAL [facility] Whole Blood [facility].[address] [place] [address] CLIA#45D [id number] 11/07 CBC w/aut o diff with refle x IG % % 0.0 0.5 0.4 FINAL Luis Tucker Whole [facility].[address] [place] [address] CLIA#45D [id number] 11/07 CBC w/aut o diff with refle x IG # 10^3/u L 0.0 0.03 0.02 FINAL Luis Tucker Whole [facility].[address] [place] [address] CLIA#45D [id number] 11/07 CBC w/aut o diff with refle x LY % % 15.0 41.0 19.0 FINAL Luis Brown Whole [facility].[address] [place] [address] CLIA#45D [id number] 11/07 CBC w/aut o diff with refle x LY # 10^3/u L 1.2 3.4 0.87 Low FINAL Luis Brown Whole [facility].[address] [place] [address] CLIA#45D [id number] 11/07 CBC w/aut o diff with refle x MO % % 3.0 11.0 9.8 FINAL Luis Brown Whole [facility].[address] [place] [address] CLIA#45D [id number] 11/07 CBC w/aut o diff with refle x MO # 10^3/u L 0.0 1.0 0.45 FINAL Luis Brown Whole [facility].[address] [place] [address] CLIA#45D [id number] 11/07 CBC w/aut o diff with refle x EO % % 0.0 3.0 9.6 High FINAL Luis Brown Whole [facility].52 [address] [facility] [address] [place] [address] CLIA#45D [id number] 11/07 CBC w/aut o diff with refle x EO # 10^3/u L 0.0 0.3 0.44 High FINAL Luis Brown Whole [facility].[address] [place] [address] CLIA#45D [id number] 11/07 CBC w/aut o diff with refle x BA % % 0.0 1.0 1.5 High FINAL Luis Brown Whole [facility].[address] [place] [address] CLIA#45D [id number] 11/07 CBC w/aut o diff with refle x BA # 10^3/u L 0.0 0.2 0.07 FINAL [facility] Blood [facility].52 [address] [facility] [address] [place] [address] CLIA#45D [id number] 11/07 CBC w/aut o diff with refle x NRBC, % % 0.0 0.2 0.0 FINAL [facility].[address] [place] [address] CLIA#45D [id number] 11/07 CBC w/aut o diff with refle x NRBC, absol jose, x 10^3/ uL 10^3/u L 0.0 0.01 0.00 FINAL [facility] Blood [facility].[address] [place] [address] CLIA#45D [id number] Medications Date Name Route Dose Frequency Instructions [...] Section * REYES HemOnc Follow Up - [facility] [address] [address] P:?? PATIENT:??JAMESON DOTSON :??1945 Date of Service:??07/07/2023 [...] insufficiency and proteinuria.?? 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
--- OUTSIDE RECORDS SUMMARY | 2025-01-28 19:48 | XMS_ITS ---
Author Name Interface, [id number] lity Address [place] [address] Organization [facility] Address [place] [address] Care Team Providers Care Incident Handler Name Role Phone Tayler Jacobs Unavailable Unavailable Allergies and Adverse Reactions Medication/Group Name Reaction Severity Date Sulfa (Sulfonamide Antibiotics) 11/07/2024 Plan Date Type Value 05/16/2025 APPOINTMENT LAB OV 6M 05/16/2025 APPOINTMENT LAB OV 6M 11/07/2024 APPOINTMENT LAB OV 11/07/2024 APPOINTMENT LAB OV 11/07/2024 LABORDER SPEP with immuno fixation 11/07/2024 LABORDER CBC w/auto diff with reflex 11/07/2024 LABORDER [place]/lambda wit h K/L ratio, free, serum (mg/dL) 11/07/2024 LABORDER CMP 11/07/2024 LABORDER Iron, TIBC, Ferr itin panel 05/16/2025 LABORDER CBC w/auto diff with reflex 05/16/2025 LABORDER SPEP with immuno fixation 05/16/2025 LABORDER CMP 05/16/2025 LABORDER [place]/lambda wit h K/L ratio, free, serum (mg/dL) [...] Ordered By Specimen Source Lab Address 11/07 [place] /rodriguez da with K/L ratio , free, serum (mg/d L) [place] [employer] , free mg/L 3.3 19.4 73.5 High FINAL [facility].[address] [place] [address] 12.[place] [address] 11/07 [place] /rodriguez da with K/L ratio , free, serum (mg/d L) [place] [employer] , free mg/L 5.7 26.3 35.8 High FINAL [facility].[address] [place] [address] 12.[place] [address] 11/07 [place] /rodriguez da with K/L ratio , free, [...] therapy of these disorders . FINAL [facility].[address] [place] [address] 12.[place] [address] 11/07 SPEP with immun ofixa tion Total prote in g/dL 6.1 8.1 6.4 FINAL [facility].[address] [place] [address] 12.[place] [address] 11/07 SPEP with immun ofixa tion NOHEMI inter preta tion Results Below Normal pattern. No monoclona l proteins detected. FINAL [facility].[address] [place] [address] 12.[place] [address] 11/07 SPEP with immun ofixa tion Album in, SPE g/dL 3.8 4.8 3.4 Low FINAL [facility].2 [address] [address] [address] 12[place] [address] 11/07 SPEP with immun ofixa tion Alpha -1 globu ashley g/dL 0.2 0.3 0.3 FINAL [facility]2 [address] [address] [address] 12[place] [address] 11/07 SPEP with immun ofixa tion Alpha -2 globu ashley g/dL 0.5 0.9 0.7 FINAL [facility]2 [address] [address] [address] 12[place] [address] 11/07 SPEP with immun ofixa tion Beta- 1 g/dL 0.4 0.6 0.4 FINAL [facility]2 [address] [address] [address] 12[place] [address] 11/07 SPEP with immun ofixa tion Beta- 2 g/dL 0.2 0.5 0.4 FINAL [facility] [place] [address] [address] 12.[place] [address] 11/07 SPEP with immun ofixa tion Gamma globu ashley g/dL 0.8 1.7 1.1 [facility] [place] [address] Building 12[place] [address] 11/07 SPEP with immun ofixa tion SPE inter preta tion Results Below Abnormal appearing gamma globulin peak, possibly monoclona l. If indicated ,recommen d immunotyp ing (Test Code: [id number]) for further evaluatio n. If the SPEPwas ordered with reflex, immunotyp ing will be resulted upon completio n. FINAL Luis [facility]2 [address] [address] [address] 12[place] [address] 11/07 CBC w/aut o diff with refle x WBC 10^3/u L 4.8 10.8 4.6 Low FINAL Luis [facility] Whole Blood [facility].[address] [facility] zaid Nelson.[address] [place] [address] CLIA#45D [id number] 11/07 CBC w/aut o diff with refle x RBC 10^6/u L 4.2 5.4 4.23 FINAL Luis [facility] Whole Blood [facility].[address] [place] [address] CLIA#45D [id number] 11/07 CBC w/aut o diff with refle x HGB g/dL 12.0 16.0 12.4 FINAL Luis [facility] Whole Blood [facility].[address] [facility] ty [address] [place] [address] CLIA#45D [id number] 11/07 CBC w/aut o diff with refle x HCT % 37.0 47.0 40.8 FINAL Luis Tucker Whole Blood [facility].[address] [facility] it e [address] [place] [address] CLIA#45D [id number] 11/07 CBC w/aut o diff with refle x MCV fL 81.0 99.0 96.5 FINAL [facility] Whole Blood [facility].[address] [facility] it e [address] [place] [address] CLIA#45D [id number] 11/07 CBC w/aut o diff with refle x MCH pg 27.0 31.0 29.3 FINAL [facility] Whole Blood [facility].[address] [facility] it e [address] [place] [address] CLIA#45D [id number] 11/07 CBC w/aut o diff with refle x MCHC g/dL 33.0 37.0 30.4 Low FINAL Luis Tucker Whole Blood [facility].[address] [facility] ty it e [address] [place] [address] CLIA#45D [id number] 11/07 CBC w/aut o diff with refle x PLT 10^3/u L 130.0 400.0 216 FINAL [facility] Whole Blood [facility].[address] [facility] ty it e [address] [place] [address] CLIA#45D [id number] 11/07 CBC w/aut o diff with refle x MPV fL 9.4 12.3 10.3 FINAL Luis [facility] Whole Blood [facility].[address] [place] [address] CLIA#45D [id number] 11/07 CBC w/aut o diff with refle x RDW % 10.5 14.5 14.0 FINAL [facility] Whole Blood [facility].[address] [place] [address] CLIA#45D [id number] 11/07 CBC w/aut o diff with refle x Jordy % % 40.0 77.0 59.7 FINAL [facility] Whole Blood [facility].[address] [place] [address] CLIA#45D [id number] 11/07 CBC w/aut o diff with refle x Jordy # (ANC) 10^3/u L 1.5 6.5 2.73 FINAL [facility] Whole Blood [facility].[address] [place] [address] CLIA#45D [id number] 11/07 CBC w/aut o diff with refle x IG % % 0.0 0.5 0.4 FINAL [facility] Whole Blood [facility].[address] [place] [address] CLIA#45D [id number] 11/07 CBC w/aut o diff with refle x IG # 10^3/u L 0.0 0.03 0.02 FINAL Luis Tc[place]er Whole Blood [facility].[address] [place] [address] CLIA#45D [id number] 11/07 CBC w/aut o diff with refle x LY % % 15.0 41.0 19.0 FINAL Luis Tucker Whole Blood [facility].[address] [place] [address] CLIA#45D [id number] 11/07 CBC w/aut o diff with refle x LY # 10^3/u L 1.2 3.4 0.87 Low FINAL Luis [facility] Whole Blood [facility].[address] [place] [address] CLIA#45D [id number] 11/07 CBC w/aut o diff with refle x MO % % 3.0 11.0 9.8 FINAL Luis [facility] Whole Blood [facility].[address] [place] [address] CLIA#45D [id number] 11/07 CBC w/aut o diff with refle x MO # 10^3/u L 0.0 1.0 0.45 FINAL Luis [facility] Whole Blood [facility].[address] [facility] ty e [address] [place] [address] CLIA#45D [id number] 11/07 CBC w/aut o diff with refle x EO % % 0.0 3.0 9.6 High FINAL Luis [facility] Whole Blood [facility].[address] [facility] e [address] [place] [address] CLIA#45D [id number] 11/07 CBC w/aut o diff with refle x EO # 10^3/u L 0.0 0.3 0.44 High FINAL Luis [facility] Whole Blood [facility].[address] [facility] [address] [place] [address] CLIA#45D [id number] 11/07 CBC w/aut o diff with refle x BA % % 0.0 1.0 1.5 High FINAL Luis Brown Whole Blood [facility].[address] [facility] [address] [place] [address] CLIA#45D [id number] 11/07 CBC w/aut o diff with refle x BA # 10^3/u L 0.0 0.2 0.07 FINAL Luis Brown Whole Blood [facility].[address] [facility] [address] [place] [address] CLIA#45D [id number] 11/07 CBC w/aut o diff with refle x NRBC, % % 0.0 0.2 0.0 FINAL [facility] Whole Blood [facility].[address] [facility] [address] [place] [address] CLIA#45D [id number] 11/07 CBC w/aut o diff with refle x NRBC, absol jose, x 10^3/ uL 10^3/u L 0.0 0.01 0.00 FINAL [facility] Whole Blood [facility].[address] [facility] [address] [place] [address] CLIA#45D [id number] 11/07 TIBC and perce nt sat w/ iron panel Iron ug/dL 50.0 170.0 60.0 FINAL [facility].[address] [facility] [address] [place] [address] CLIA#45D [id number] 11/07 TIBC and perce nt sat w/ iron panel TIBC ug/dL 250.0 450.0 311.0 FINAL [facility].52 [address] [facility] [address] [place] [address] CLIA#45D [id number] 11/07 TIBC and perce nt sat w/ iron panel Iron, % satur ation % 15.0 50.0 19 FINAL [facility].52 36 [facility] e [address] [place] [address] CLIA#45D [id number] 11/07 CMP Chlor loly mmol/L 97.0 107.0 106 FINAL [facility].52 [facility] [address] [place] [address] CLIA#45D [id number] 11/07 CMP CO2 mmol/L 21.0 32.0 28.0 FINAL [facility].52 [address] [facility] [address] [place] [address] CLIA#45D [id number] 11/07 CMP Gluco se mg/dL 74.0 106.0 74 FINAL [facility].[address] [facility] [address] [place] [place] [address] CLIA#45D [id number] 11/07 CMP BUN mg/dL 7.0 18.0 35 High FINAL [facility].[address] [facility] [address] [place] [address] CLIA#45D [id number] 11/07 CMP Creat inine , mg/dL mg/dL 0.55 1.3 1.41 High FINAL [facility].52 [address] [facility] [address] [place] [address] CLIA#45D [id number] 11/07 CMP GFR estim ate mil/mi n/1.73 m2 38 Low Result based on the eGFR 2020 calculati on.60-89 mL/min/1. 73m^2 without kidney damage may be normal.60 -89 mL/min/1. 73m^2 for 3 months or more, along with kidney damage, may indicate early kidney disease.C alculatio n modified to the 2020 formula effective 01/16/23. FINAL [facility].[address] [facility] [address] [place] [address] CLIA#45D [id number] 11/07 CMP BUN/C reati nine ratio 6.0 25.0 24.8 FINAL [facility].[address] [facility] [address] [place] [address] CLIA#45D [id number] 11/07 CMP Calci um mg/dL 8.5 10.1 9.7 FINAL [facility].52 [address] [facility] [address] [place] [address] CLIA#45D [id number] 11/07 CMP Album in g/dL 3.4 5.0 3.1 Low FINAL [facility].[address] [facility] [address] [place] [address] CLIA#45D [id number] 11/07 CMP Total prote in g/dL 6.4 8.2 7.3 FINAL [facility].52 [address] [facility] [address] [place] [address] CLIA#45D [id number] 11/07 CMP Globu ashley g/dL 2.2 4.2 4.2 FINAL [facility].52 [address] [facility] [address] [place] [address] CLIA#45D [id number] 11/07 CMP A/G ratio 0.8 2.0 0.7 Low FINAL [facility].52 [address] [facility] [address] [place] [address] CLIA#45D [id number] 11/07 CMP Bilir ubin, total mg/dL 0.2 1.0 0.6 FINAL [facility].52 [address] [facility] [address] [place] [address] CLIA#45D [id number] 11/07 CMP Alkal ine phosp hatas e U/L 46.0 116.0 100 FINAL [facility].52 [address] [facility] [address] [place] [address] CLIA#45D [id number] 11/07 CMP AST/S GOT U/L 15.0 37.0 26 FINAL [facility].52 [address] [facility] [address] [place] [address] CLIA#45D [id number] 11/07 CMP ALT/S GPT U/L 14.0 59.0 27 FINAL [facility].52 [address] [facility] [address] [place] [address] CLIA#45D [id number] 11/07 CMP Sodiu m mmol/L 136.0 145.0 143 FINAL [facility].52 [address] [facility] [address] [place] [address] CLIA#45D [id number] 11/07 CMP Potas sium mmol/L 3.5 5.1 4.3 FINAL [facility] Plasma [facility].52 [address] [facility] [address] [place] [address] CLIA#45D [id number] 11/07 Juliet tin panel Juliet tin ng/mL 8.0 252.0 228 FINAL Tayler Jacobs Serum [facility].52 [address] [facility] [address] [place] [address] CLIA#45D [id number] Medications Date Name Route Dose Frequency Instructions [...] REYES HemOnc Follow Up {John}- Reynaldo [facility] [address] [address] P:?? PATIENT:??JAMESON DOTSON :??1945 Date of Service:??11/07/2024 [...] insufficiency and proteinuria.?? 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 * Aspirin Oral 81 mg 1 TABLET(S) PO daily * Wfkzavzhpol-Vhxwssbwi-Vkicotns Inhaler 100 mcg-62.5 mcg-25 mcg/actuation 100-62.5-25 mcg [...] 3 adult children.?? 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 Tayler Jacobs CUSTOMER ACCOUNT TECHNICIAN ? Send copy of note to: MD Edmond Hicks MD. Electronically signed by Tayler Jacobs NP 11/07/2024 13:31 TIRE BUILDING SUPERVISOR
[2025-01-28 20:23] LABS: Alanine Aminotransferase 29 U/L (6-35); Alkaline Phosphatase 92 U/L (38-126); Anion Gap 8 mmol/L (4-12); Aspartate Amino Transferase 42 U/L (14-36); Bilirubin,Total 0.4 mg/dL (0.2-1.3); Blood Urea Nitrogen 27 mg/dL (7-17); Calcium 8.9 mg/dL (8.4-10.2); Carbon Dioxide 26 mmol/L (22-30); Chloride 104 mmol/L (98-107); Estimated CRCL calculation 30 ml/min; Estimated Glomerular Filt Rate 48; Glucose 92 mg/dL (65-110); Lipase 87 U/L (23-300); Sodium 138 mmol/L (137-145)
[2025-01-28 20:32] LABS: Troponin I < 0.012 ng/mL (0.000-0.034)
[2025-01-28 20:53] VITALS: BP 125/66; PULSE 72; RESP 15; O2SAT 97
--- NOTE | 2025-01-28 22:12 | ECG_ITS ---
Test Date: 2025-01-28 22:19:29 Measurements Intervals [place] Rate: 75 P: 47 IL: 120 QRS: -10 QRSD: 102 T: 9 QT: 382 QTc: 427 Interpretive Statements SINUS RHYTHM NONSPECIFIC ST ELEVATION IN HIGH LATERAL LEADS BASELINE ARTIFACT- I, II, III, AVR, AVL, AVF BORDERLINE ECG Compared to ECG 01/28/2025 18:58:02 NO SIGNIFICANT CHANGE Electronically Signed On 01-29-2025 06:25:33 CDT by Yovany Campo D.O.
[2025-01-28 22:47] LABS: Troponin I < 0.012 ng/mL (0.000-0.034)
--- NOTE | 2025-01-28 23:09 | ED.GENADULT ---
HPI - General Adult General Chief complaint: Chest Pain Stated complaint: chest pain Time Seen by Provider: 01/28/25 19:22 History of Present Illness HPI narrative: Patient 79-year-old female who presents emergency department with chief complaint of chest discomfort. Patient is traveling from [place] and has been appear for approximately 1 week and is going home tomorrow the patient states that she had 2 episodes where she had discomfort in her chest that lasted for a few seconds the patient states the pain is currently resolved patient denies shortness of breath denies hypoxia denies syncope reports no swelling in her legs Related Data Allergies Allergy/AdvReac Type Severity Reaction Status Date / Time Sulfa (Sulfonamide Allergy rash Verified 01/28/25 18:32 Antibiotics) Review of Systems Review of Systems: A 10 system review of systems was completed on the patient and is negative except for what is stated in the HPI. Nursing and ancillary documentation was reviewed. [facility] Past Medical History Medical History History of thyroid disorder COPD (chronic obstructive pulmonary disease) Surgical History Surgical History H/O heart artery stent Exam Narrative: GENERAL: Well-appearing, well-nourished, and in no acute distress. HEAD: Normocephalic, atraumatic. EYES: PERRLA and EOMI. ENT: Nares clear, no rhinorrhea or epistaxis. Mucous membranes moist. NECK: Supple. CHEST: Clear to auscultation. No respiratory distress. HEART: Regular rate and rhythm. No murmur heard. Normal peripheral pulses. ABDOMEN: Soft, nontender, nondistended, normal active bowel sounds. EXTREMITIES: Normal range of motion. No edema. SKIN: Warm, dry, no rash. NEURO: No focal deficits. Alert and oriented x3. PSYCH: Normal mood and affect. Course Vital Signs Vital signs: Vital Signs Temperature 36.6 C 01/28/25 18:50 Pulse Rate 79 01/28/25 18:50 Respiratory Rate 18 01/28/25 18:50 Blood Pressure 118/57 L 01/28/25 18:50 Pulse Oximetry 98 01/28/25 18:50 Oxygen Delivery Room Air 01/28/25 18:50 Temperature 36.6 C 01/28/25 18:50 Pulse Rate 72 01/28/25 20:53 Respiratory Rate 15 01/28/25 20:53 Blood Pressure 125/66 01/28/25 20:53 Pulse Oximetry 97 01/28/25 20:53 Oxygen Delivery Room Air 01/28/25 18:54 Medical Decision Making MDM Narrative Medical decision making narrative: Differential diagnosis includes ACS, non cardiac chest pain, EKG showed no acute ischemic changes initial troponin was negative repeat troponin was negative. Chest x-ray showed no focal infiltrate there was a acute versus chronic T10 compression fracture Was discussed with the patient possibility of pulmonary embolism since she has done a car ride from [place] in discussion with the patient she did not want to undergo a pulmonary embolism scan and would like to follow-up with her primary care provider Vital Signs Vital Signs: Vital Signs Temperature 36.6 C 01/28/25 18:50 Pulse Rate 79 01/28/25 18:50 Respiratory Rate 18 01/28/25 18:50 Blood Pressure 118/57 L 01/28/25 18:50 Pulse Oximetry 98 01/28/25 18:50 Oxygen Delivery Room Air 01/28/25 18:50 Temperature 36.6 C 01/28/25 18:50 Pulse Rate 72 01/28/25 20:53 Respiratory Rate 15 01/28/25 20:53 Blood Pressure 125/66 01/28/25 20:53 Pulse Oximetry 97 01/28/25 20:53 Oxygen Delivery Room Air 01/28/25 18:54 Lab Data 01/28/25 19:13 01/28/25 20:06 Labs: Lab Results 01/28/25 01/28/25 01/28/25 Range/Units 19:13 20:06 22:13 WBC 6.3 (4.5-10.0) K/mm3 RBC 4.06 L (4.2-5.4) M/mm3 Hgb 11.7 L (12.0-15.0) g/dL Hct 39.2 (37.0-47.0) % MCV 96.6 (80-100) fl MCH 28.8 (26-34) pg MCHC 29.8 L (32-36) g/dl RDW 15.5 H (11.5-14.5) % Plt Count 202 (150-375) k/mm3 MPV 10.9 H (7.4-10.4) fl Immature Gran % (Auto) 0.3 (0-0.5) % Neut % (Auto) 57.1 (45.5-73.1) % Lymph % (Auto) 22.6 (18.3-44.2) % [place] % (Auto) 11.2 H (2.6-8.5) % Eos % (Auto) 7.4 H (0-4.4) % Baso % (Auto) 1.4 H (0.2-1.2) % Lymph # (Auto) 1.43 (0.9-3.2) K/mm3 [place] # (Auto) 0.7 H (0.1-0.6) K/mm3 Eos # (Auto) 0.5 H (0-0.3) K/mm3 Baso # (Auto) 0.1 (0.0-0.1) K/mm3 Abs Immat Gran (auto) 0.02 (0.00-0.031) K/mm3 Absolute Neuts (auto) 3.6 (1.3-6.7) K/mm3 Absolute Nucleated RBC 0.000 (0.0-0.012) K/mm3 Nucleated RBC % 0.0 (0.0-0.2) % PT 13.6 (11.1-14.7) Seconds INR 1.0 APTT 30.1 (22.3-36.8) Seconds Sodium 138 (137-145) mmol/L Potassium 5.0 (3.4-5.0) mmol/L Chloride 104 (98-107) mmol/L Carbon Dioxide 26 (22-30) mmol/L Anion Gap 8 (4-12) mmol/L BUN 27 H (7-17) mg/dL Creatinine 1.11 H (0.7-1.0) mg/dL Estim Creat Clear Calc 30 ml/min Estimated GFR 48 L (59 - ) Glucose 92 (65-110) mg/dL Calcium 8.9 (8.4-10.2) mg/dL Total Bilirubin 0.4 (0.2-1.3) mg/dL AST 42 H (14-36) U/L ALT 29 (6-35) U/L Alkaline Phosphatase 92 (38-126) U/L Troponin I < 0.012 < 0.012 (0.000-0.034) ng/mL Total Protein 7.0 (6.3-8.2) g/dL Albumin 4.0 (3.5-5.1) g/dL Lipase 87 (23-300) U/L Discharge Plan Discharge Clinical Impression: Atypical chest pain Patient Disposition: Home Condition: Stable Instructions: Antibiotic Form, Chest Pain (ED) Patient Language: Ukrainian Prescriptions: No Action albuterol sulfate 90 mcg/actuation HFA aerosol inhaler 2 puff inhalation QID PRN (Reason: shortness of breath or wheezing) Qty: 6.7 0RF (DME) Aerochamber MV Spacer See Rx Instructions .Route Qty: 1 0RF Rx Instructions: As directed prednisone 20 mg tablet See Rx Instructions .Route .COMPLEX Qty: 18 0RF Rx Instructions: Take 60 mg daily for 3 days, 40 mg daily for 3 days, 20 mg daily for 3 days Follow-up/Referrals: UNKNOWN,DOCTOR [Primary Care Provider] - Time of Disposition: 23:12
[2025-01-28 23:25] VITALS: BP 116/68; PULSE 76; RESP 15; O2SAT 98
== END 2025-01-28 23:38 | disposition home or self-care (01) ==
PROVIDERS: Emergency Medicine; Emergency Provider Emergency Medicine
DX: R07.89 Other chest pain (principal); J44.9 Chronic obstructive pulmonary disease, unspecified; E07.9 Disorder of thyroid, unspecified; Z95.5 Presence of coronary angioplasty implant and graft; R94.31 Abnormal electrocardiogram [ECG] [EKG]
CPT/HCPCS: 36415; 71046; 80053; 83690; 84484; 85025; 85610; 85730; 93005; 99284